=== PATIENT | female | born 1945 | race Caucasian/White ===

== ENCOUNTER → 2016-10-15 | Outpatient (CLI) | payer OTHER ==
[~2016-10-15] MED LIST: CALC500C70 PO; GABA-112 PO; GLC/500 PO; HYDR12.55 PO; HYDR25TA4 PO; LATA0.009 OPB; LISI10TA PO; METO25TA3 PO; METO25TA56 PO; POTASSIUM GLUCONATE PO; POTASSIUM PO; RIVA1TAB4 PO
[2016-10-15 14:30] LABS: ESTIMATED AVERAGE GLUCOSE 128 mg/dl; HA1C FLAG Normal (Normal)
[2016-10-15 14:48] LABS: CALCIUM 9.6 mg/dl (8.5-10.1)
[2016-10-15 14:51] LABS: ALT/SGPT 46 U/L (12-78); BLOOD UREA NITROGEN 17 mg/dl (7-18); BUN/CREATININE RATIO 18.8 (10-20); CARBON DIOXIDE 28 mmol/L (21-32); CHLORIDE 104 mmol/L (98-107); CREATININE 0.89 mg/dl (0.60-1.20); GLUCOSE 116 mg/dl (70-99); POTASSIUM 3.7 mmol/L (3.5-5.1); SODIUM 141 mmol/L (136-145)
[2016-10-15 14:57] LABS: ALB/GLOB RATIO 0.9 (0.9-2); ALKALINE PHOSPHATASE 88 U/L (45-117); AST/SGOT 28 U/L (15-37)
--- NOTE | 2016-10-22 07:49 | CODING QUERY MEDICAL NECESSITY ---
CQSUPPORTING DIAGNOSIS NEEDED A supporting diagnosis is required for the test/procedure performed on this patient in order for us to be reimbursed by the patient's insurance. Please provide a supporting diagnosis for the following test/procedure listed below next to the test name along with your signature. *If there is no additional diagnosis for this patient that would support the following test/procedure please document that below next to the test/procedure. Test(s)/Procedure(s) that require a supporting diagnosis: SATHYA 10/15/16 GLYCATED HEMOGLOBIN TEST Provider Signature: Date: Thank you Clau Conde Health Information Management Once completed, please kindly fax back to [phone] For questions please call [phone]
== END | disposition home or self-care (01) ==
LOC: C.LABBC 09:51
PROVIDERS: ATTEND Internal Medicine
DX: Z68.44 Body mass index [BMI] 60.0-69.9, adult (principal); E11.9 Type 2 diabetes mellitus without complications

== ENCOUNTER → 2016-12-21 | Day surgery (SDC) | payer OTHER ==
[2016-12-15 08:25] VITALS: BMI 51.0
[~2016-12-21] VITALS: Ht 170.2 cm; Wt 147.7 kg
[~2016-12-21] MED LIST changes: -GABA-112 PO; -HYDR12.55 PO; +LIDOCAINE HCL 2% 2 ML VIAL (20MG/ML) ONE; -METO25TA3 PO; -POTASSIUM GLUCONATE PO; +PROPOFOL IV EMULSION 10 MG/ML 20 ML VIAL IV ONE; +SODIUM CHLORIDE 0.9% 500ML 500 ML IV ONE
[2016-12-21 08:24] VITALS: Ht 170.2 cm; Wt 147.7 kg
--- NOTE | 2016-12-21 09:04 | Endo History and Physical ---
History & Physical Date of Service: Dec 21, 2016. Chief Complaint: CHRONIC CONSTIPATION Referring Physician: DR ESTHELA MCDONNELL History of Present Illness screening; constipation Past Medical History Atrial Fibrillation, Diabetes, Glaucoma, Heart Disease, Hypertension Past Surgical History Hx Cardiac Surgery: No Hx Internal Defibrillator: No Hx Pacemaker: No Hx Abdominal Surgery: Yes (VENTRAL HERNIA REPAIR,HYSTERECTOMY) Hx of Implantable Prosthesis: No Hx Post-Op Nausea and Vomiting: Yes Hx Cancer Surgery: No Hx Thoracic Surgery: No Hx Orthopedic: Yes (BILAT TKA, RT KNEE REVISION) Hx Urinary Tract Surgery: No Family History None Social History Smoking Status: Former Smoker Hx Substance Use: No Hx Alcohol Use: No Allergies Coded Allergies: Iodinated Contrast Media (Verified Allergy, Intermediate, RASH ON FOOT, SWELLING, 10/21/10) Sulfa Drugs (Verified Allergy, Unknown, RASH/ITCHING, 12/15/16) Sulfamethoxazole (Verified Allergy, Unknown, RASH/ITCHING, 12/15/16) Current Medications Reported Home Medications Medications Dose Route/Sig Max Daily Dose Days Date Category Os-Martin 500 Plus D (Calcium/Vitamin D) Tab 1 Tab PO QAM 12/15/16 Reported [Potassium] 595 Mg PO QAM 12/15/16 Reported Lopressor (Metoprolol Tartrate) 25 Mg Tab 25 Mg PO QAM 12/15/16 Reported Hctz (Hydrochlorothiazide) 25 Mg Tab 25 Mg PO QAM 12/15/16 Reported Xalatan 0.005% Oph (Latanoprost) Soln 1 Drop OPB HS 12/16/15 Reported Glucophage (Metformin Hcl) 500 Mg Tab 500 Mg PO QPM 12/16/15 Reported Xarelto (Rivaroxaban) 20 Mg Tab 1 Tab PO QAM 12/16/15 Reported Prinivil (Lisinopril) 10 Mg Tab 10 Mg PO QAM 10/13/10 Reported Vital Signs Weight (Kilograms): 147.73 Height (Feet): 5 Height (Inches): 7 Date Time Temp Pulse Resp B/P (MAP) Pulse Ox O2 Delivery O2 Flow Rate FiO2 12/21/16 08:36 36.6 70 18 127/77 (94) 96 Room Air Physical Exam General Appearance: WD/WN, no apparent distress Assessment and Plan Colonoscopy today
--- NOTE | 2016-12-21 09:28 | Discharge Instructions ---
Endoscopy Patient Instructions Date / Procedure(s) Performed Dec 21, 2016. Colonoscopy Allergy Information Coded Allergies: Iodinated Contrast Media (Verified Allergy, Intermediate, RASH ON FOOT, SWELLING, 10/21/10) Sulfa Drugs (Verified Allergy, Unknown, RASH/ITCHING, 12/15/16) Sulfamethoxazole (Verified Allergy, Unknown, RASH/ITCHING, 12/15/16) Discharge Date / Findings Dec 21, 2016. diverticulosis; hemorrhoids Medication Instructions Stopped Medication(s): METFORMIN LAST DOSE 12/19/16 XARELTO LAST DOSE 12/17/16 Restart Stopped Medication(s): OK to resume all medications Provider Instructions Activity Restrictions - No exercising or heavy lifting for 24 hours. - Do not drink alcohol the day of the procedure. - Do not drive a car or operate machinery until the day after the procedure. - Do not make any important decisions or sign important papers in 24 hours after the procedure. Following Day: - Return to full activity which may include returning to work/school. Diet Start your diet with liquids and light foods (jello, soup, juice, toast). Then eat your usual diet if not nauseated. Treatment For Common After Affects For mild abdominal pain, bloating, or excessive gas: - Rest - Eat lightly - Lie on right side Follow-Up Information Follow-up with DR ESTHELA MCDONNELL as scheduled Anesthesia Information What You Should Know You have had a procedure that required some medicine to reduce anxiety and discomfort. This treatment is called moderate sedation. After receiving the treatment, you may be sleepy, but you will be able to breathe on your own. The effects of the treatment may last for several hours. Follow these instructions along with Activity/Diet recommendations noted above: * Do NOT do anything where dizziness or clumsiness would be dangerous. * Rest quietly at home today, then you can be up and about tomorrow. * Have a responsible person stay with you the rest of today. * You may have had an I.V. today. If so, you may take the dressing off later today. Recommendations Call your doctor if: * Trouble breathing * Continuous vomiting for more than 24 hours * Temperature above 101 degrees * Severe abdominal pain or bloating * Pain not relieved by pain medicine ordered * There is increased drainage or redness from any incision * A large amount of rectal bleeding greater than 2-3 tablespoons. (If you had a polyp/s removed or have hemorrhoids, a small amount of blood - from the rectum is to be expected.) * You have any unanswered questions or concerns. IN THE EVENT OF A SERIOUS EMERGENCY, GO TO THE NEAREST EMERGENCY ROOM Your discharge instructions were prepared by provider Audra Mack. Patient Instructions Signature Page Cecilia Salazar Patient (or Guardian) Signature/Date: I have read and understand the instructions given to me by my caregivers. Caregiver/RN/Doctor Signature/Date: The above-named patient and/or guardian has received patient instructions on this date. + Original Patient Signature Page (only) stays with chart. Please make copy for patient.
--- NOTE | 2016-12-21 09:50 | Anesthesiology Progress Note ---
Anesthesia Post Op Note Date & Time Dec 21, 2016 at 09:50 Vital Signs Pain Intensity: 0 Vital Signs Past 12 Hours Date Time Temp Pulse Resp B/P (MAP) Pulse Ox O2 Delivery O2 Flow Rate FiO2 12/21/16 09:41 64 16 101/62 (75) 95 Room Air 12/21/16 09:34 64 16 90/52 (65) 95 Room Air 12/21/16 09:26 63 14 89/51 (64) 99 Room Air 12/21/16 08:36 36.6 70 18 127/77 (94) 96 Room Air Notes Mental Status: alert / awake / arousable, participated in evaluation Pt Amnestic to Procedure: Yes Nausea / Vomiting: adequately controlled Pain: adequately controlled Airway Patency, RR, SpO2: stable & adequate BP & HR: stable & adequate Hydration State: stable & adequate Anesthetic Complications: no major complications apparent
--- NOTE | 2016-12-21 10:52 | GI REPORT ---
Procedure Date: 12/21/2016 8:51 AM Procedure: Colonoscopy Indications: Screening for colorectal malignant neoplasm, Incidental constipation noted Medicines: Propofol per Anesthesia Complications: No immediate complications. Estimated blood loss: None. Estimated Blood Loss: Estimated blood loss: none. Procedure: Pre-Anesthesia Assessment: - Prior to the procedure, a History and Physical was performed, and patient medications, allergies and sensitivities were reviewed. The patient's tolerance of previous anesthesia was reviewed. - The risks and benefits of the procedure and the sedation options and risks were discussed with the patient. All questions were answered and informed consent was obtained. - Patient identification and proposed procedure were verified prior to the procedure by the physician and the nurse. The procedure was verified in the pre-procedure area in the procedure room. - Mental Status Examination: alert and oriented. Airway Examination: normal oropharyngeal airway and neck mobility. Respiratory Examination: clear to auscultation. CV Examination: normal. Abdominal Examination: bowel sounds present, abdomen soft and non-tender, no masses or organomegaly noted. - ASA Grade Assessment: III - A patient with severe systemic disease. After I obtained informed consent, the scope was passed under direct vision. Throughout the procedure, the patient's blood pressure, pulse, and oxygen saturations were monitored continuously. The scope was introduced through the anus and advanced to the cecum, identified by appendiceal orifice and ileocecal valve. The colonoscopy was performed without difficulty. The patient tolerated the procedure well. The quality of the bowel preparation was good. Findings: The perianal and digital rectal examinations were normal. Pertinent negatives include normal sphincter tone and no palpable rectal lesions. Many small-mouthed diverticula were found in the sigmoid colon. Internal hemorrhoids were found during retroflexion. The hemorrhoids were medium-sized and Grade I (internal hemorrhoids that do not prolapse). Impression: - Diverticulosis in the sigmoid colon. - Internal hemorrhoids. - No specimens collected. Recommendation: - Repeat colonoscopy in 10 years for screening purposes. - Return to referring physician as previously scheduled. - Discharge patient to home. Audra Mack D.O. Audra Mack DO 12/21/2016 9:31:19 AM This report has been signed electronically. Note Initiated On: 12/21/2016 8:51 AM I attest to the content of the Intraoperative Record and orders documented therein, exceptions below
[2016-12-21 11:00] VITALS: BP 110/59; PULSE 57; O2SAT 99
== END | disposition home or self-care (01) ==
LOC: C.GI 08:03
PROVIDERS: ATTEND Internal Medicine
DX: Z12.11 Encounter for screening for malignant neoplasm of colon (principal); K59.09 Other constipation; K57.30 Diverticulosis of large intestine without perforation or abscess without bleeding; K64.8 Other hemorrhoids; I48.91 Unspecified atrial fibrillation; E11.9 Type 2 diabetes mellitus without complications; I10 Essential (primary) hypertension; I51.9 Heart disease, unspecified; H40.9 Unspecified glaucoma; Z87.891 Personal history of nicotine dependence; Z79.899 Other long term (current) drug therapy; Z79.84 Long term (current) use of oral hypoglycemic drugs

== ENCOUNTER → 2017-05-14 | Outpatient (CLI) | payer OTHER ==
[~2017-05-14] MED LIST changes: -LIDOCAINE HCL 2% 2 ML VIAL (20MG/ML) ONE; -PROPOFOL IV EMULSION 10 MG/ML 20 ML VIAL IV ONE; -SODIUM CHLORIDE 0.9% 500ML 500 ML IV ONE
[2017-05-14 13:51] LABS: BASO % 0.7 %; BASO ABS # 0.05 K/uL (0-0.2); EOS % 1.6 %; EOS ABS # 0.12 K/uL (0-0.5); HEMOGLOBIN 14.4 g/dL (12.0-16.0); IG# 0.03 K/uL (0.00-0.02); LYMPH % 20.4 %; LYMPH ABS # 1.53 K/uL (1.2-3.4); MEAN CELL VOLUME 86.2 fL (80-100); MEAN CORPUSCULAR HEMOGLOBIN 28.9 pg (25-34); MEAN CORPUSCULAR HGB CONC 33.5 g/dl (32-36); MEAN PLATELET VOLUME 10.8 fL (7.4-10.4); MONO % 8.7 %; MONO ABS # 0.65 K/uL (0.11-0.59); NEUT % 68.2 %; NEUT ABS # 5.11 K/uL (1.4-6.5); PLATELET COUNT 270 K/uL (130-400); RED CELL DISTRIBUTION WIDTH CV 14.8 % (11.5-14.5); RED CELL DISTRIBUTION WIDTH SD 46.8 fL (36.4-46.3); WHITE BLOOD COUNT 7.49 K/uL (4.8-10.8)
[2017-05-14 15:40] LABS: ALBUMIN 3.8 gm/dl (3.4-5.0); ALKALINE PHOSPHATASE 83 U/L (45-117); ALT/SGPT 39 U/L (12-78); BLOOD UREA NITROGEN 20 mg/dl (7-18); CALCIUM 9.8 mg/dl (8.5-10.1); CARBON DIOXIDE 30 mmol/L (21-32); CHOLESTEROL 199 mg/dl (0-200); GLUCOSE 115 mg/dl (70-99); POTASSIUM 3.8 mmol/L (3.5-5.1); SODIUM 137 mmol/L (136-145); TOTAL PROTEIN 7.9 gm/dl (6.4-8.2)
[2017-05-14 15:51] LABS: AST/SGOT 26 U/L (15-37); LDL CHOLESTEROL CALCULATED 114 mg/dl
[2017-05-15 07:51] LABS: HEMOGLOBIN A1C 5.8 % (4.5-5.6)
== END | disposition home or self-care (01) ==
LOC: C.LABBC 10:12
PROVIDERS: ATTEND Internal Medicine
DX: I10 Essential (primary) hypertension (principal); G47.30 Sleep apnea, unspecified; I48.0 Paroxysmal atrial fibrillation; E11.9 Type 2 diabetes mellitus without complications; M54.5 Low back pain; Z79.01 Long term (current) use of anticoagulants; Z51.81 Encounter for therapeutic drug level monitoring; Z11.59 Encounter for screening for other viral diseases

== ENCOUNTER → 2017-07-21 | Outpatient (CLI) | payer OTHER ==
--- NOTE | 2017-07-21 15:37 | MAMMOGRAPHY REPORT ---
BILATERAL DIGITAL SCREENING MAMMOGRAM TOMOSYNTHESIS WITH CAD: 07/21/2017 CLINICAL HISTORY: Routine screening. Patient has no complaints. TECHNIQUE: Breast tomosynthesis in addition to standard 2D mammography was performed. Current study was also evaluated with a Computer Aided Detection (CAD) system. COMPARISON: Comparison is made to exams dated: 09/23/2015 mammogram, 09/19/2014 mammogram, 09/08/2013 ma mmogram, 09/06/2012 mammogram, 08/13/2011 mammogram, and 07/16/2010 mammogram - [facility] er. BREAST COMPOSITION: There are scattered areas of fibroglandular density in both breasts. FINDINGS: No suspicious masses, calcifications, or areas of architectural distortion are noted in ei ther breast. There has been no significant interval change compared to prior exams. Scattered bilater al benign-appearing calcifications are not significantly changed. IMPRESSION: ACR BI-RADS CATEGORY 2: BENIGN There is no mammographic evidence of malignancy. A 1 year screening mammogram is recommended. The pa tient will receive written notification of the results. Approximately 10% of breast cancers are not detected with mammography. A negative mammographic report should not delay biopsy if a clinically suggestive mass is present. Blessing Miles M.D. ah/:07/21/2017 14:53:23 X Ray Control Equipment Repairer: Diamond VILLEGAS)(M), [facility] letter sent: Normal 1/2 BI-RADS Code: ACR BI-RADS Category 2: Benign
== END | disposition home or self-care (01) ==
LOC: C.MAMM 10:36
PROVIDERS: ATTEND Internal Medicine
DX: Z12.31 Encounter for screening mammogram for malignant neoplasm of breast (principal)

== ENCOUNTER 2017-08-23 04:49 | Inpatient (IN) | payer OTHER ==
[2017-08-11 14:16] VITALS: BMI 53.0
--- NOTE | 2017-08-11 15:03 | PAT Medication Instructions ---
Service Date Aug 11, 2017. Current Home Medication List Calcium/Vitamin D (Os-Martin 500 Plus D), 1 TAB PO QAM Hydrochlorothiazide (Hctz), 25 MG PO QAM Latanoprost (Xalatan 0.005% Oph Nathalie), 1 DROPS OPB HS Lisinopril (Prinivil), 10 MG PO QAM Metformin Hcl (Glucophage), 500 MG PO QPM Metoprolol Tartrate (Lopressor) (Lopressor), 25 MG PO QAM Rivaroxaban (Xarelto), 1 TAB PO QAM [Potassium], 99 MG PO QAM Medication Instructions For Your Scheduled Surgery -Contact your commercial leasing agent for instructions for: Rivaroxaban (Xarelto), 1 TAB PO QAM MUST BE HELD FOR 72 HOURS FOR SPINAL ANESTHESIA - Hold the following medications the morning of surgery: Calcium/Vitamin D (Os-Martin 500 Plus D), 1 TAB PO QAM Hydrochlorothiazide (Hctz), 25 MG PO QAM Lisinopril (Prinivil), 10 MG PO QAM [Potassium], 99 MG PO QAM - Take the following medications the morning of surgery with a sip of water: Metoprolol Tartrate (Lopressor) (Lopressor), 25 MG PO QAM - Take the following medications as scheduled the night before surgery: Latanoprost (Xalatan 0.005% Oph Nathalie), 1 DROPS OPB HS Metformin Hcl (Glucophage), 500 MG PO QPM If you have any questions please call us at [phone] or [phone] or [phone]
[2017-08-11 15:57] LABS: BASO % 0.4 %; BASO ABS # 0.04 K/uL (0-0.2); EOS % 0.9 %; EOS ABS # 0.08 K/uL (0-0.5); HEMATOCRIT 43.2 % (37-47); HEMOGLOBIN 14.6 g/dL (12.0-16.0); IG# 0.02 K/uL (0.00-0.02); LYMPH % 17.9 %; LYMPH ABS # 1.59 K/uL (1.2-3.4); MEAN CELL VOLUME 84.7 fL (80-100); MEAN CORPUSCULAR HEMOGLOBIN 28.6 pg (25-34); MEAN CORPUSCULAR HGB CONC 33.8 g/dl (32-36); MONO % 7.5 %; MONO ABS # 0.67 K/uL (0.11-0.59); NEUT % 73.1 %; PLATELET COUNT 261 K/uL (130-400); RED CELL DISTRIBUTION WIDTH CV 14.5 % (11.5-14.5); RED CELL DISTRIBUTION WIDTH SD 45.4 fL (36.4-46.3)
[2017-08-11 16:06] LABS: ALBUMIN 3.7 gm/dl (3.4-5.0); CALCIUM 9.6 mg/dl (8.5-10.1); CREATININE 0.83 mg/dl (0.60-1.20); POTASSIUM 3.7 mmol/L (3.5-5.1)
[2017-08-11 16:08] LABS: PTT PATIENT 31.3 SECONDS (21.0-31.0)
--- NOTE | 2017-08-17 08:35 | History and Physical ---
History & Physical Date Aug 17, 2017. Chief Complaint Patient presents with a new onset of an acute broken post for Encore total knee arthroplasty she had 10 years ago undergone a similar situation with her right knee she presents today with left knee new onset fractured Jennie post for Encore total knee arthroplasty 70-year-old female presents with the pain clinical examination consistent with a acute onset per compose she was symptom- free prior to the event which occurred last week History of Present Illness The patient is a 72 year old female with complaints of pain and instability about her left knee after sustaining a broken post from a Encore PROSTHESIS Past Medical/Surgical History Patient's medical history includes hypertension sleep apnea utilizing home CPAP machine Additional History Hepatic Disease: No Endocrine Disorder: No Kidney Disease: No Hypertension: Yes Heart Disease: No Bleeding Tendencies: No Infectious Diseases: No Allergies Coded Allergies: Iodinated Contrast Media (Verified Allergy, Intermediate, RASH ON FOOT, SWELLING, 08/11/17) Sulfa Drugs (Verified Allergy, Unknown, RASH/ITCHING, 08/11/17) Sulfamethoxazole (Verified Allergy, Unknown, RASH/ITCHING, 08/11/17) Home Medications Scheduled Calcium/Vitamin D (Os-Martin 500 Plus D), 1 TAB PO QAM Hydrochlorothiazide (Hctz), 25 MG PO QAM Latanoprost (Xalatan 0.005% Oph Nathalie), 1 DROPS OPB HS Lisinopril (Prinivil), 10 MG PO QAM Metformin Hcl (Glucophage), 500 MG PO QPM Metoprolol Tartrate (Lopressor) (Lopressor), 25 MG PO QAM Rivaroxaban (Xarelto), 1 TAB PO QAM [Potassium], 99 MG PO QAM Physical Examination Skin: warm/dry, no rash Eyes: normal inspection, EOMI, sclerae normal ENT: normal ENT inspection, pharynx normal Head: normocephalic, atraumatic Neck: supple, no adenopathy, trachea midline Respiratory/Chest: lungs clear, normal breath sounds, no respiratory distress Cardiovascular: regular rate, rhythm, no edema, no murmur Abdomen / GI: normal bowel sounds, non tender Back: normal inspection Extremities: normal inspection, normal range of motion, + pertinent finding ( Instability of left total knee arthroplasty resulting from a broken post) Neurologic/Psych: no motor/sensory deficits, alert, normal reflexes, oriented x 3 Addiitonal Comments: Patient has been completely asymptomatic symptom-free no fever chills rash no signs of anything infectious until the acute fracture of the Jennie patient did not have any aspirated due to the clinical exam being completely benign with no indication or evidence of any type of infectious etiology x-rays revealed to be possible lucency under the tibial component that would be consistent with just aseptic loosening over the years but she has been symptom-free until the most recent fracture of the tibial poly-plan will be for poly-change possible revision pending evaluation of tibia at the time of surgery Diagnosis Status post left total knee arthroplasty from 2001 with broken post for Encore prosthesis plans for possible Valerie change possible revision to a Legion total knee arthroplasty pending findings at time of surgery Plan of Treatment Plans for poly-changes left total knee arthroplasty Encore prosthesis possible revision to a lesion total knee arthroplasty pending findings at time of surgery
[~2017-08-23] VITALS: Ht 165.1 cm; Wt 142.5 kg
[2017-08-23] VITALS (8 sets, daily range): BP systolic 103–136; BP diastolic 65–81; PULSE 66–92; TEMP 36.6–36.9; O2SAT 94–98; Ht 165.1 cm; Wt 142.5 kg
[~2017-08-23 04:49] MED LIST changes: +ACETAMINOPHEN 500 MG TAB PO SCH; +CEFAZOLIN 3000MG IV PUSH 22.5 ML IV SCH; +CeleBREX 200 MG CAP PO SCH; +DEXAMETHASONE 4 MG TAB PO SCH; +FAMOTIDINE 20 MG TAB PO SCH; +GABAPENTIN 300 MG CAP PO SCH; +LACTATED RINGER'S 1000ML 1,000 ML IV SCH; +LACTATED RINGER'S 1000ML 500 ML IV SCH; -LATA0.009 OPB; +LATA0.5S OPB; +METOCLOPRAMIDE HCL 10 MG TAB PO SCH; +ROPIVACAINE 5MG/ML 30 ML 150 MG, BUPIVACAINE 0.5% MPF INJ 30 ML, EpINEphrine HCL INJ 0.... INFIL SCH
[2017-08-23] MEDS ORDERED: LACTATED RINGER'S 1000ML 1,000 ML IV SCH (06:00)
[2017-08-23] MEDS ORDERED: DEXAMETHASONE 4 MG TAB PO SCH (06:00)
[2017-08-23] MEDS ORDERED: LACTATED RINGER'S 1000ML 500 ML IV SCH (06:00)
[2017-08-23] MEDS ORDERED: FAMOTIDINE 20 MG TAB PO SCH (06:00)
[2017-08-23] MEDS ORDERED: ACETAMINOPHEN 500 MG TAB PO SCH (06:00)
[2017-08-23] MEDS ORDERED: CeleBREX 200 MG CAP PO SCH (06:00)
[2017-08-23] MEDS ORDERED: GABAPENTIN 300 MG CAP PO SCH (06:00)
[2017-08-23] MEDS ORDERED: CEFAZOLIN 3000MG IV PUSH 22.5 ML IV SCH (06:00)
[2017-08-23] MEDS ORDERED: METOCLOPRAMIDE HCL 10 MG TAB PO SCH (06:00)
[2017-08-23] MEDS ORDERED: ROPIVACAINE 5MG/ML 30 ML 150 MG, BUPIVACAINE 0.5% MPF INJ 30 ML, EpINEphrine HCL INJ 0.... INFIL SCH ×8 (06:00)
[2017-08-23] MEDS ORDERED: BUPIVACAINE 0.5 % 5 MG/1 ML PF 10ML VIAL ONE (06:33)
[2017-08-23] MEDS ORDERED: ROPIVACAINE 0.5% 5 MG/ML 30 ML VIAL ONE (06:33)
[2017-08-23] MEDS ORDERED: PROPOFOL IV EMULSION 10 MG/ML 20 ML VIAL IV ONE ×2 (07:03→08:05)
[2017-08-23] MEDS ORDERED: LIDOCAINE HCL 2% 2 ML VIAL (20MG/ML) ONE (07:03)
[2017-08-23] MEDS ORDERED: MIDAZOLAM HCL 1 MG/ML 2ML VIAL ONE (07:03)
[2017-08-23] MEDS ORDERED: FENTANYL CITRATE INJ 50 MCG/1 ML 2 ML VIAL ONE (07:03)
[2017-08-23] MEDS ORDERED: EpHEDrine SULFATE 50MG/5ML SYR ONE (07:03)
[2017-08-23] MEDS ORDERED: POVIDONE-IODINE OP SOLN 30 ML BTL ONE (07:05)
[2017-08-23] MEDS ORDERED: ORTHO JOINT ANESTHETIC ONE (07:05)
[2017-08-23] MEDS ORDERED: BACITRACIN 50000 UNIT VIAL ONE (07:05)
--- NOTE | 2017-08-23 07:12 | History & Physical Bridge Note ---
H&P Re-Evaluation Bridge Note: I have examined the patient, reviewed the History & Physical and in the interval since the performance of the History & Physical I have noted the following changes of clinical significance: No changes noted
[2017-08-23] MEDS ORDERED: EpHEDrine SULFATE INJ 50 MG/ML AMP IV PRN (08:00)
[2017-08-23] MEDS ORDERED: ONDANSETRON INJ 2 MG/ML 2 ML VIAL IV PRN ×2 (08:00→09:15)
[2017-08-23] MEDS ORDERED: HYDROmorphone INJ 2 MG/ML SYR/VIAL IV PRN (08:00)
[2017-08-23] MEDS ORDERED: ATROPINE SULFATE 0.1 MG/ML 5ML SYR IV PRN (08:00)
[2017-08-23] MEDS ORDERED: PHENYLEPHRINE 100MCG/ML 5ML SYR IV PRN (08:00)
--- NOTE | 2017-08-23 08:25 | [facility] Post Operative Brief Note ---
Immediate Operative Summary Operative Date Aug 23, 2017. Pre-Operative Diagnosis Broken poly post left tka Post-Operative Diagnosis Broken Valerie post left total knee arthroplasty Encore system with warn patellar component Procedure(s) Performed Valerie change to a size 6 x 19 Poly revision patellar component size 9 x 35 Encore implant Surgeon Vinod Chalker Soles Surgeon(s) Roxanna Estimated Blood Loss 5 cc Findings Consistent with Post-Op Diagnosis Specimens broken poly Anesthesia Type MAC Spinal Regional Complication(s) none Disposition Disposition: Recovery Room / PACU
[2017-08-23] MEDS ORDERED: PHENYLEPHRINE HCL INJ 10 MG/ML VIAL ONE (08:29)
--- NOTE | 2017-08-23 08:29 | [facility] Operative Report ---
Operative Report Operative Date Aug 23, 2017. Pre-Operative Diagnosis Broken poly post left tka Post-Operative Diagnosis Broken Poly post left total knee arthroplasty Encore system with warn patellar component Procedure(s) Performed Valerie change to a size 6 x 19 Poly revision patellar component size 9 x 35 Encore implant Surgeon Vinod Cook [employer] Surgeon(s) Roxanna Estimated Blood Loss 5 cc Findings Patient presents with a total knee arthroplasty ENcore was placed in 2001 after having a sudden onset failure of the post approximately 1 week prior patient presents for poly-change as well as a patellar revision no loosening of components components was noted on preoperative bone scan or intraoperatively at the time of surgery for this reason the Poly was revised as well as the patellar component Specimens broken poly Anesthesia Type MAC Spinal Regional Complication(s) none Disposition Recovery Room / PACU Indications Patient presents after failure of Poly bearing on an Encore total knee arthroplasty was placed in 2001 as well as polyethylene wear of the patellar component no evidence of infection was noted patient is completely asymptomatic until the Jennie failure time surgery no evidence of infection no evidence of loosening is noted preoperative bone scan revealed no evidence of loosening of either patellar or femoral or tibial components Description of Procedure After proper prepping and draping of the left lower extremity incision made in the region of the previous anterior extensor mechanism incision a medial parapatellar incision was made dissection carried down through subcutaneous tissues to the region of the extensor mechanism and the components there is obvious failure of the polyethylene with a broken post the polyethylene was removed as well as the broken post the patellar component was noted evidence of marketed where and fissuring with a central crack subsequently after removal of the Valerie synovectomy was performed operative matter debris was removed the patellar component was removed with an oscillating saw was sized to #35 x 9 mm gave excellent patellar tracking a trial of a 19 mm thickness polyethylene bearing was placed subsequently at the range of motion noted be excellent stability medial lateral was noted to be excellent subsequently the final components were brought into the field the polyethylene was placed after thorough irrigation of the knee joint patellar component was cemented into position the wound was irrigated with copious amounts of sterile saline solution and medial parapatellar incision closed with #1 Vicryl subcu was closed with 2-0 Vicryl skin was closed with skin clips a sterile compressive dressing was placed patient taken to recovery in stable condition operative report dictated by Vinod please note Dontrell GAY was necessary for prepping draping retraction closure of deep fascia subcutaneous skin was necessary for the case I attest to the content of the Intraoperative Record and any orders documented therein. Any exceptions are noted below.
[2017-08-23] MEDS ORDERED: BISACODYL 10 MG SUPP PR PRN (09:15)
[2017-08-23] MEDS ORDERED: MoRPHine SULFATE 4 MG/ML 1 ML CARP\\VIAL IV PRN (09:15)
[2017-08-23] MEDS ORDERED: OXYCODONE HCL IR 5 MG TAB (IMMEDIATE RELEASE) PO PRN (09:15)
[2017-08-23] MEDS ORDERED: ALUMINUM/MAGNESIUM/SIMETH (MAALOX MAX) 30 ML UDC PO PRN (09:15)
[2017-08-23] MEDS ORDERED: CEFAZOLIN IV 2,000 MG in DEXTROSE 5% 50ML 50 ML IV SCH (09:15)
[2017-08-23] MEDS ORDERED: MAGNESIUM HYDROXIDE SUSP 30 ML UDC PO PRN (09:15)
[2017-08-23] MEDS ORDERED: PHARMACY GLYCEMIC MGMT CONSULT PRN (09:16)
[2017-08-23] MEDS ORDERED: GLUCOSE 40% GEL 15 GM TUBE PO PRN (09:30)
[2017-08-23] MEDS ORDERED: GLUCAGON FOR INJ 1 MG VIAL SQ PRN (09:30)
[2017-08-23] MEDS ORDERED: GLUCOSE 10 TABS/TUBE PO PRN (09:30)
[2017-08-23] MEDS ORDERED: DEXTROSE 50% 50 ML SYR IV PRN (09:30)
--- NOTE | 2017-08-23 09:39 | DIAGNOSTIC IMAGING REPORT ---
L KNEE 2 VIEWS ROUTINE CLINICAL HISTORY: Postop knee arthroplasty COMPARISON: None. DISCUSSION: There are postsurgical changes of a total left knee arthroplasty, and patellar resurfacing. The femoral and tibial components appear well seated. There are overlying skin jaskaran and surgical drains. There is air in the soft tissues consistent with history of recent surgery. IMPRESSION: Postsurgical changes of a total left knee arthroplasty. Electronically signed by: Jhony Nugent M.D. 08/23/2017 9:37 AM Dictated Date/Time: 08/23/2017 9:37 AM
--- NOTE | 2017-08-23 10:52 | Anesthesiology Progress Note ---
Anesthesia Post Op Note Date & Time Aug 23, 2017 at 10:52 Vital Signs Pain Intensity: 0 Vital Signs Past 12 Hours Date Time Temp Pulse Resp B/P (MAP) Pulse Ox O2 Delivery O2 Flow Rate FiO2 08/23/17 10:45 59 11 96/58 95 Nasal Cannula 2 08/23/17 10:35 58 18 95/57 95 Nasal Cannula 2 08/23/17 10:25 60 17 98/61 94 Nasal Cannula 2 08/23/17 10:15 66 17 104/57 96 Nasal Cannula 2 08/23/17 10:05 57 18 90/54 (65) 96 Nasal Cannula 2 08/23/17 09:55 62 14 97/58 (69) 96 Nasal Cannula 2 08/23/17 09:45 59 16 95/52 (63) 96 Nasal Cannula 2 08/23/17 09:35 60 18 100/58 95 Nasal Cannula 2 08/23/17 09:25 64 17 91/59 (70) 95 Oxymask 6 08/23/17 09:15 87 22 98/62 (70) 95 Oxymask 10 08/23/17 09:05 36.9 81 25 79/51 (60) 94 Oxymask 10 08/23/17 05:38 36.6 92 20 118/73 Notes Mental Status: alert / awake / arousable, participated in evaluation Pt Amnestic to Procedure: Yes Nausea / Vomiting: adequately controlled Pain: adequately controlled Airway Patency, RR, SpO2: stable & adequate BP & HR: stable & adequate Hydration State: stable & adequate Anesthetic Complications: no major complications apparent
[2017-08-23] MEDS: ACETAMINOPHEN 500 MG TAB PO SCH ×2 (13:58→20:47)
[2017-08-23] MEDS: INSULIN ASPART 100 UNITS/ML 3 ML PEN SC SCH ×4 (14:03→23:50)
--- NOTE | 2017-08-23 14:04 | Pharmacy Progress Note ---
Glycemic Control Intl Consult Date of Service Aug 23, 2017. Scope Glycemic Pharmacist consulted by LUCRETIA Patton on 08/23/17 for glycemic control and to write orders per [facility] inpatient glycemic control protocol. Objective Weight (Kilograms): 142.500 Accuchecks BSG (last 24hrs): Test 08/23/17 05:23 08/23/17 09:08 08/23/17 12:33 Bedside Glucose 131 mg/dl (70-90) 120 mg/dl (70-90) 146 mg/dl (70-90) HbA1c Test 08/11/17 15:40 Hemoglobin A1c 6.0 % (4.5-5.6) H Recent Pertinent Medications Outpatient Anti-diabetic Regimen: * Metformin 500mg PO qAM * A1c = 6.0% 08/11/17 Risk Factors for Insulin Resistance: * Steroids: DXM 8mg PO x1 dose pre-op this morning, plus ortho injection * IVF: NSS @ 100mL/hr * Recent Surgery: OR today for L TKA revision * Diet: Type 2 diabetic diet Assessment & Plan ASSESSMENT: * Ms Salazar is a 72yo diabetic female, admitted for L TKA revision (OR this morning). * Based on recent A1c, BSGs are well-controlled on Metformin as an outpatient. * In an effort to minimize steroid-induced hyperglycemia post-op, will provide patient with basal/bolus insulin regimen. Will adjust as needed until good glycemic control is achieved. PLAN FOR INPATIENT GLYCEMIC CONTROL: * Holding outpatient oral diabetes medications * Consider resuming once diet is resumed and tolerated * Basal insulin with LANTUS 15 units SQ x1 dose this afternoon * Correctional Insulin with NOVOLOG per scale ACHS or Q6hrs while NPO * Goal Range: Low 110 mg/dL - High 150 mg/dL * Correction Factor: 15 mg/dL/unit * Nutritional / Prandial insulin per carb ratio of 1 unit per 7 grams CHO consumed DISCHARGE PLANNING: * Patient's recent A1c (6.0%) indicates adequate glycemic control as an outpatient. * It is most likely reasonable to continue patient's outpt regimen on discharge , as long as patient isn't experiencing hypoglycemic episodes at home. * Please note that the plan above was derived based on current level of insulin resistance and hospital stress. These recommendations are appropriate for inpatient admission only. Plan of care upon discharge will need to be reassessed to avoid potential outpatient hypo/hyperglycemia. Thank you.
[2017-08-23] MEDS ORDERED: LANTUS PER UNIT CHARGE SQ ONE (14:15)
[2017-08-23] MEDS: SODIUM CHLORIDE 0.9% 1000ML 1,000 ML IV SCH ×2 (15:11→23:50)
[2017-08-23] MEDS: CEFAZOLIN IV 2,000 MG in SYRINGE 0 ML IV SCH ×2 (15:23→23:50)
[2017-08-23] MEDS: FERROUS GLUCONATE 324 MG TAB PO SCH (18:10)
[2017-08-23] MEDS: DOCUSATE SODIUM 100 MG CAP PO SCH (20:46)
[2017-08-23] MEDS: LATANOPROST 0.005% OP SOLN 2.5 ML BTL OPB SCH (20:46)
[2017-08-23] MEDS: SENNA 8.6 MG TAB PO SCH (20:46)
[2017-08-24] MEDS: INSULIN ASPART 100 UNITS/ML 3 ML PEN SC SCH ×5 (03:56→21:00)
[2017-08-24 04:00] VITALS: BP 120/80; PULSE 62; TEMP 36.6; O2SAT 97
[2017-08-24 05:55] LABS: HEMATOCRIT 36.2 % (37-47); HEMOGLOBIN 11.9 g/dL (12.0-16.0); MEAN CELL VOLUME 84.2 fL (80-100); MEAN CORPUSCULAR HEMOGLOBIN 27.7 pg (25-34); MEAN CORPUSCULAR HGB CONC 32.9 g/dl (32-36); MEAN PLATELET VOLUME 10.2 fL (7.4-10.4); PLATELET COUNT 240 K/uL (130-400); RED CELL DISTRIBUTION WIDTH CV 14.8 % (11.5-14.5); RED CELL DISTRIBUTION WIDTH SD 45.7 fL (36.4-46.3); WHITE BLOOD COUNT 16.48 K/uL (4.8-10.8)
[2017-08-24] MEDS: ACETAMINOPHEN 500 MG TAB PO SCH ×3 (06:13→21:06)
[2017-08-24 06:24] LABS: CALCIUM 8.7 mg/dl (8.5-10.1); CREATININE 1.09 mg/dl (0.60-1.20); POTASSIUM 3.4 mmol/L (3.5-5.1)
[2017-08-24 06:53] VITALS: BP 142/75; PULSE 60; TEMP 36.5; O2SAT 97
--- NOTE | 2017-08-24 07:37 | Anesthesiology Progress Note ---
Anesthesia Post Op Note Date & Time Aug 24, 2017 at 07:37 Vital Signs Pain Intensity: 0.0 Vital Signs Past 12 Hours Date Time Temp Pulse Resp B/P (MAP) Pulse Ox O2 Delivery O2 Flow Rate FiO2 08/24/17 06:53 36.5 60 18 142/75 (97) 97 Room Air 08/24/17 04:00 36.6 62 16 120/80 (93) 97 Room Air 08/24/17 00:02 Room Air 08/23/17 22:50 36.8 66 18 122/76 (91) 96 Room Air Notes Mental Status: alert / awake / arousable, participated in evaluation Pt Amnestic to Procedure: Yes Nausea / Vomiting: adequately controlled Pain: adequately controlled Airway Patency, RR, SpO2: stable & adequate BP & HR: stable & adequate Hydration State: stable & adequate Neuraxial Anesthesia: sensory block resolved Anesthetic Complications: no major complications apparent
--- NOTE | 2017-08-24 07:48 | Orthopedic Progress Note ---
Orthopedic Progress Note Date of Service Aug 24, 2017. Subjective Post OP Day: 1 Reports: feeling well, Denies: chest pain, SOB, nausea / vomiting, light headedness, calf pain Additional Notes: Pt states that the Prevena dressing began alarming early this AM but nursing staff was able to fix the problem. Pain controlled fairly well at this time. Objective calves soft nontender, N/V intact, dressing C/D/I (Prevena intact), A&O x3, toes mobile Date Time Temp Pulse Resp B/P (MAP) Pulse Ox O2 Delivery O2 Flow Rate FiO2 08/24/17 06:53 36.5 60 18 142/75 (97) 97 Room Air 08/24/17 04:00 36.6 62 16 120/80 (93) 97 Room Air 08/24/17 00:02 Room Air 08/23/17 22:50 36.8 66 18 122/76 (91) 96 Room Air 08/23/17 18:55 36.9 71 18 112/72 (85) 96 Room Air 08/23/17 15:15 36.7 72 18 119/75 (90) 98 Nasal Cannula 1.0 08/23/17 15:10 Nasal Cannula 1.0 08/23/17 14:22 36.6 74 16 115/75 (88) 97 2.0 08/23/17 13:17 75 16 136/81 (99) 94 2.0 08/23/17 12:52 68 16 115/70 (85) 97 2.0 08/23/17 12:10 Nasal Cannula 2.0 08/23/17 12:10 97 Nasal Cannula 2.0 08/23/17 12:10 36.6 68 15 103/65 (78) 97 Nasal Cannula 2.0 08/23/17 11:45 63 20 101/59 95 Nasal Cannula 2 08/23/17 11:35 36.1 64 19 106/60 94 Nasal Cannula 2 08/23/17 11:25 67 22 96/58 (70) 96 Nasal Cannula 2 08/23/17 11:15 59 16 94/57 (66) 94 Nasal Cannula 2 08/23/17 11:05 59 16 95/59 (68) 94 Nasal Cannula 2 08/23/17 10:55 36.0 60 13 90/57 (68) 96 Nasal Cannula 2 08/23/17 10:45 59 11 96/58 95 Nasal Cannula 2 08/23/17 10:35 58 18 95/57 95 Nasal Cannula 2 08/23/17 10:25 60 17 98/61 94 Nasal Cannula 2 08/23/17 10:15 66 17 104/57 96 Nasal Cannula 2 08/23/17 10:05 57 18 90/54 (65) 96 Nasal Cannula 2 08/23/17 09:55 62 14 97/58 (69) 96 Nasal Cannula 2 08/23/17 09:45 59 16 95/52 (63) 96 Nasal Cannula 2 08/23/17 09:35 60 18 100/58 95 Nasal Cannula 2 08/23/17 09:25 64 17 91/59 (70) 95 Oxymask 6 08/23/17 09:15 87 22 98/62 (70) 95 Oxymask 10 08/23/17 09:05 36.9 81 25 79/51 (60) 94 Oxymask 10 Laboratory Results 24 Hours: Test 08/24/17 05:09 Hematocrit 36.2 % Hemoglobin 11.9 g/dL Assessment & Plan Assessment: POD 1 s/p Left TKA Poly change and revision of patella. Plan: PT/OT Unsure if she wants HH services vs OPPT. Will discuss with CM and decide after PT today. Inhouse Planning Pain Management: Ultram, Morphine, PO Tylenol, Oxy IR DVT Prophylaxis: TEDs, SCDs, Xarelto Discharge Planning Discharge Planning: uncertain
[2017-08-24] MEDS: FERROUS GLUCONATE 324 MG TAB PO SCH ×3 (08:37→18:46)
[2017-08-24] MEDS: DOCUSATE SODIUM 100 MG CAP PO SCH ×2 (08:38→21:03)
[2017-08-24] MEDS: MULTIVITAMIN TAB PO SCH (08:38)
[2017-08-24] MEDS: METOPROLOL TARTRATE 25 MG TAB PO SCH (08:38)
[2017-08-24] MEDS: RIVAROXABAN 10 MG TAB PO SCH (08:39)
[2017-08-24] MEDS: LISINOPRIL 10 MG TAB PO SCH (08:39)
--- NOTE | 2017-08-24 08:51 | Discharge Instructions ---
Discharge Instructions Date of Service Aug 24, 2017. Admission Reason for Admission: Left Knee Osteoarthritis Discharge Discharge Diagnosis / Problem: Left TKA Poly change and revision of patella. Discharge Goals Goal(s): Decrease discomfort Activity Recommendations Activity Limitations: as noted below Weightbearing Status: Left weightbearing (as tolerated) . Instructions / Follow-Up Instructions / Follow-Up ACTIVITY RECOMMENDATIONS: SELF CARE INSTRUCTIONS AFTER TOTAL KNEE REPLACEMENT A. You may need to continue a physical therapy program after discharge from the hospital. There are several options available to you. Your doctor will assist you in selecting the best one for you. 1. An out-patient facility 2 to 3 times a week for therapy or home therapy. 2. Continue working on all exercises taught to you in the hospital. Your goals should be to increase bending of your knee to 90 degrees and beyond and to fully straighten your knee. B. You may progress at your own pace from walking with a walker or crutches to a cane; then to no assistive devices. C. Make walking a part of your daily routine. Be up as much as comfortable with rest periods throughout the day. Rest with leg elevation is very important. Use the ice wrap frequently for the first 3-4 weeks. D. There are no restrictions on activities. You may ride in a car, shop, participate in patrol community service officer and all social activities. E. Wear the long elastic stockings (GUANACO hose) 20 hours a day for 2 weeks after surgery. They can be removed several times a day for laundering and for a bath. F. You may shower, no tub baths until cleared by your doctor. SPECIAL CARE INSTRUCTIONS: VERY IMPORTANT TO READ AND REVIEW A. There are a few signs you need to watch for after you are home. Call [facility] [place] if you notice any of the followin. Increased severe knee pain. Some pain is expected especially when you exercise. 2. Increased swelling in your leg or knee; pain or swelling of the calf muscle in either lower leg. 3. Any fluid drainage from the incision. 4. Shortness of breath or chest pain. B. Please call [facility] at if you have any concerns or questions about your operation or recovery. The doctor or his nurse will return your call promptly. C. You must take antibiotics before dental work, bladder, bowel or other surgery. Your doctor will provide you with a permanent care to carry describing this precaution. IMPORTANT: * REMEMBER TO TAKE ASPIRIN, 81 MG, TWICE DAILY FOR 4 WEEKS UNLESS OTHERWISE DIRECTED. THIS IS YOUR BLOOD THINNER. * HIGH RISK PATIENTS MAY BE PRESCRIBED A STRONGER BLOOD THINNER. THIS WILL BE PROVIDED AT DISCHARGE. * CALL IF INCREASED PAIN, REDNESS, DRAINAGE OR FEVER GREATER THAT 101. * WEAR GUANACO HOSE 20 HOURS PER DAY FOR 2 WEEKS. * YOU MAY HAVE A LARGE BAND-AID LIKE DRESSING (SILVERON). THIS WILL REMAIN ON YOUR INCISION FOR 7 DAYS, THEN CAN BE REMOVED. IF INCISION IS LEAKING THROUGH DRESSING, CALL THE OFFICE . * YOU MAY HAVE A Prevena wound vac- This is a large suction dressing covering your incision. This will help pull any excess drainage from the wound and allow your incision to heal properly. You may shower with this if you can keep the unit outside of the shower. If any bleeding or leakage is noted please call your doctor's office. This will remain on your incision for 7 days and then should be removed. This can be done yourself or by the home nursing staff if applicable. The entire unit is disposable once removed. Once removed, keep incision clean and dry. If redness or drainage is noted, please call your surgeon. FOLLOW UP VISIT: If appointment is not already scheduled: Please call [facility] [place] to make a follow-up appointment for 2 weeks after your surgery at . Current Hospital Diet Patient's current hospital diet: Diabetes Type 2 Diet Discharge Diet Recommended Diet: Diabetes Type 2 Diet Procedures Procedures Performed: Valerie change to a size 6 x 19 Poly revision patellar component size 9 x 35 Encore implant Pending Studies Studies pending at discharge: no Laboratory Results Hemoglobin A1c Test 08/11/17 15:40 Range/Units Estimated Average Glucose 126 mg/dl Hemoglobin A1c 6.0 H 4.5-5.6 % Medical Emergencies . Who to Call and When: Medical Emergencies: If at any time you feel your situation is an emergency, please call 911 immediately. . Non-Emergent Contact Non-Emergency issues call your: Primary Care Provider, Surgeon . "Provider Documentation" section prepared by Kalyan Figueroa. . [place] Drug Monitoring Program Search Results: patient reviewed within database, no issues identified
[2017-08-24] MEDS: SODIUM CHLORIDE 0.9% 1000ML 1,000 ML IV SCH (09:59)
[2017-08-24 10:12] VITALS: PULSE 83; O2SAT 97
[2017-08-24] MEDS ORDERED: NURSING VERBAL MED ORDER ONE (11:15)
[2017-08-24] MEDS ORDERED: RXC5 PO (11:22)
[2017-08-24] MEDS ORDERED: ONDA-170 PO (11:22)
[2017-08-24] MEDS ORDERED: CLC100 PO (11:22)
[2017-08-24] MEDS ORDERED: ACET-24 PO (11:22)
[2017-08-24] MEDS: TRAMADOL HCL 50 MG TAB PO PRN ×3 (11:52→21:18)
--- NOTE | 2017-08-24 11:52 | Clinical Documentation Query ---
RERE Bennett : CLINICAL DOCUMENTATION QUERY Patient is a 72 year old female admitted for revision of left TKA. BMI noted to be 52.3 kg/m*m. In order to capture this clinically relevant information, an associated medical diagnosis must be documented in the record. As appropriate, consider documentation of an associated diagnosis and/or the BMI. Thank you. In your clinical opinion is this patient: ( x ) Morbidly obese, BMI 52.3 kg/m*m ( ) Not Agree ( ) Other explanation of clinical findings (Please Explain) ( ) Unable to determine (Please Define) ( ) Need to Discuss The medical record reflects the following clinical findings, treatment, and risk factors. Please clarify and document your clinical opinion in the progress notes and discharge summary. Terms such as "probable", "suspected", "likely", "questionable", "possible", or "still to be ruled out" are acceptable. IF IN AGREEMENT, YOU MUST DOCUMENT ABOVE DIAGNOSTIC STATEMENT IN DAILY PROGRESS NOTES AND DISCHARGE SUMMARY. This document is not part of the patient's record. Thank You, Jean Linn, RN [phone]
[2017-08-24 12:11] VITALS: BP 111/73; PULSE 60; TEMP 36.5; O2SAT 98
--- NOTE | 2017-08-24 13:40 | Pharmacy Progress Note ---
Pharmacy Glycemic Short Note 2 Date of Service Aug 24, 2017. Outpatient Anti-diabetic Regimen: * Metformin 500mg PO qAM * A1c = 6.0% 08/11/17 ASSESSMENT: 08/24/17 * BSGs have been well-controlled post-op. * Metformin resumed for this evening's dose, as patient appears to be tolerating diet. * Will remove carb coverage from Novolog parameters, as patient is not likely to require additional prandial coverage this far out from pre-op steroid dose. 08/23/17 * Ms Salazar is a 72yo diabetic female, admitted for L TKA revision (OR this morning). * Based on recent A1c, BSGs are well-controlled on Metformin as an outpatient. * In an effort to minimize steroid-induced hyperglycemia post-op, will provide patient with basal/bolus insulin regimen. Will adjust as needed until good glycemic control is achieved. PLAN FOR INPATIENT GLYCEMIC CONTROL: * Holding outpatient oral diabetes medications * Resume Metformin 500mg PO qPM * Basal insulin: no further Lantus at this time * Correctional Insulin with NOVOLOG per scale ACHS or Q6hrs while NPO * Goal Range: Low 110 mg/dL - High 150 mg/dL * Correction Factor: 15 mg/dL/unit * Nutritional / Prandial insulin: no further coverage at this time DISCHARGE PLANNING: * Patient's recent A1c (6.0%) indicates adequate glycemic control as an outpatient. * It is most likely reasonable to continue patient's outpt regimen on discharge , as long as patient isn't experiencing hypoglycemic episodes at home. * Please note that the plan above was derived based on current level of insulin resistance and hospital stress. These recommendations are appropriate for inpatient admission only. Plan of care upon discharge will need to be reassessed to avoid potential outpatient hypo/hyperglycemia. Thank you.
[2017-08-24 15:58] VITALS: BP 124/66; PULSE 65; TEMP 36.8; O2SAT 98
[2017-08-24] MEDS: METFORMIN HCL 500 MG TAB PO SCH (18:47)
[2017-08-24] MEDS: LATANOPROST 0.005% OP SOLN 2.5 ML BTL OPB SCH (21:02)
[2017-08-24] MEDS: SENNA 8.6 MG TAB PO SCH (21:03)
[2017-08-24] MEDS: MICONAZOLE NITRATE POWDER 43 GM EXT PRN (21:10)
[2017-08-24 23:20] VITALS: BP 105/61; PULSE 65; TEMP 36.6; O2SAT 97
[2017-08-25] MEDS: ACETAMINOPHEN 500 MG TAB PO SCH ×3 (05:21→20:57)
--- NOTE | 2017-08-25 06:43 | Orthopedic Progress Note ---
Orthopedic Progress Note Date of Service Aug 25, 2017. Subjective Post OP Day: 2 Reports: feeling well, nausea / vomiting (episode of nausea last evening but improved this am), pain controlled w PO medications, Denies: complaints, chest pain, SOB, light headedness, calf pain Objective calves soft nontender, N/V intact, capillary refill less than 2 sec., dressing C /D/I, A&O x3, toes mobile Date Time Temp Pulse Resp B/P (MAP) Pulse Ox O2 Delivery O2 Flow Rate FiO2 08/24/17 23:21 Room Air 08/24/17 23:20 36.6 65 18 105/61 (76) 97 Room Air 08/24/17 15:58 36.8 65 18 124/66 (85) 98 Room Air 08/24/17 15:50 Nasal Cannula 08/24/17 12:11 36.5 60 20 111/73 (86) 98 Room Air 08/24/17 10:12 83 97 08/24/17 07:56 Room Air 08/24/17 06:53 36.5 60 18 142/75 (97) 97 Room Air Assessment & Plan Assessment: POD 2 s/p Left TKA Poly change and revision of patella. Plan: PT/OT will plan on d/c home with HHPT with advantage DVT proph with GUANACO/SCD/Xarelto Discharge Planning Discharge Planning: home with home health DVT Prophylaxis: TEDs, SCDs, ASA Therapy: Physical Therapy
[2017-08-25 07:12] VITALS: BP 122/79; PULSE 70; TEMP 36.5; O2SAT 96
[2017-08-25] MEDS: DOCUSATE SODIUM 100 MG CAP PO SCH ×2 (08:37→20:56)
[2017-08-25] MEDS: RIVAROXABAN 10 MG TAB PO SCH (08:38)
[2017-08-25] MEDS: FERROUS GLUCONATE 324 MG TAB PO SCH ×3 (08:38→17:45)
[2017-08-25] MEDS: MULTIVITAMIN TAB PO SCH (08:38)
[2017-08-25] MEDS: LISINOPRIL 10 MG TAB PO SCH (08:38)
[2017-08-25] MEDS: METOPROLOL TARTRATE 25 MG TAB PO SCH (08:38)
[2017-08-25] MEDS: INSULIN ASPART 100 UNITS/ML 3 ML PEN SC SCH ×4 (08:39→20:53)
[2017-08-25] MEDS: TRAMADOL HCL 50 MG TAB PO PRN ×2 (10:39→19:32)
[2017-08-25] MEDS ORDERED: KETOROLAC TROMETHAMINE 15 MG/ML VIAL IV PRN (10:45)
[2017-08-25] MEDS ORDERED: HYDROCODONE/ACETAMIN 5/325MG TAB PO PRN (10:45)
[2017-08-25 10:56] LABS: HEMATOCRIT 36.8 % (37-47); HEMOGLOBIN 12.2 g/dL (12.0-16.0); MEAN CELL VOLUME 84.2 fL (80-100); MEAN CORPUSCULAR HEMOGLOBIN 27.9 pg (25-34); MEAN CORPUSCULAR HGB CONC 33.2 g/dl (32-36); PLATELET COUNT 227 K/uL (130-400); RED CELL DISTRIBUTION WIDTH CV 15.2 % (11.5-14.5); RED CELL DISTRIBUTION WIDTH SD 46.9 fL (36.4-46.3); WHITE BLOOD COUNT 12.21 K/uL (4.8-10.8)
[2017-08-25 11:13] LABS: CALCIUM 8.7 mg/dl (8.5-10.1); POTASSIUM 3.3 mmol/L (3.5-5.1)
[2017-08-25] MEDS ORDERED: POTASSIUM CHLORIDE 20 MEQ TABCR PO STA (12:53)
[2017-08-25 14:58] VITALS: BP 132/82; PULSE 67; TEMP 36.7; O2SAT 95
[2017-08-25] MEDS: METFORMIN HCL 500 MG TAB PO SCH (17:55)
[2017-08-25] MEDS: MICONAZOLE NITRATE POWDER 43 GM EXT PRN (18:35)
[2017-08-25] MEDS: LATANOPROST 0.005% OP SOLN 2.5 ML BTL OPB SCH (20:56)
[2017-08-25] MEDS: SENNA 8.6 MG TAB PO SCH (20:56)
[2017-08-25 22:55] VITALS: BP 103/64; PULSE 71; TEMP 36.8; O2SAT 94
[2017-08-26] MEDS: ACETAMINOPHEN 500 MG TAB PO SCH (05:57)
[2017-08-26 07:09] LABS: CREATININE 0.95 mg/dl (0.60-1.20)
[2017-08-26 07:10] LABS: CALCIUM 8.6 mg/dl (8.5-10.1); POTASSIUM 3.8 mmol/L (3.5-5.1)
[2017-08-26 07:44] VITALS: BP 129/71; PULSE 69; TEMP 36.9; O2SAT 94
[2017-08-26] MEDS: INSULIN ASPART 100 UNITS/ML 3 ML PEN SC SCH (08:00)
--- NOTE | 2017-08-26 08:01 | Orthopedic Progress Note ---
Orthopedic Progress Note Date of Service Aug 26, 2017. Subjective Post OP Day: 3 Reports: feeling well, Denies: chest pain, SOB, nausea / vomiting, light headedness, calf pain Additional Notes: DC HELD YESTERDAY DUE TO NAUSEA ISSUES. FEELING MUCH BETTER TODAY. Objective calves soft nontender, N/V intact, capillary refill less than 2 sec., incision C /D/I, A&O x3, toes mobile Date Time Temp Pulse Resp B/P (MAP) Pulse Ox O2 Delivery O2 Flow Rate FiO2 08/26/17 07:44 36.9 69 18 129/71 (90) 94 Room Air 08/25/17 22:55 36.8 71 18 103/64 (77) 94 Room Air 08/25/17 19:30 Room Air 08/25/17 15:46 Room Air 08/25/17 14:58 36.7 67 16 132/82 (99) 95 Room Air Laboratory Results 24 Hours: Test 08/25/17 10:45 Hematocrit 36.8 % Hemoglobin 12.2 g/dL Assessment & Plan Assessment: POD 3 s/p Left TKA Poly change and revision of patella. Plan: PT/OT will plan on d/c home with HHPT with advantage- DC HOME TODAY DVT proph with GUANACO/SCD/Xarelto Inhouse Planning Pain Management: Ultram, Morphine, PO Tylenol, Oxy IR DVT Prophylaxis: TEDs, SCDs, Xarelto Discharge Planning Discharge Planning: home with home health DVT Prophylaxis: TEDs, SCDs, ASA Therapy: Physical Therapy
[2017-08-26] MEDS: MULTIVITAMIN TAB PO SCH (08:23)
[2017-08-26] MEDS: FERROUS GLUCONATE 324 MG TAB PO SCH (08:23)
[2017-08-26] MEDS: METOPROLOL TARTRATE 25 MG TAB PO SCH (08:24)
[2017-08-26] MEDS: RIVAROXABAN 10 MG TAB PO SCH (08:24)
[2017-08-26] MEDS: DOCUSATE SODIUM 100 MG CAP PO SCH (08:24)
[2017-08-26] MEDS: LISINOPRIL 10 MG TAB PO SCH (08:25)
[2017-08-26] MEDS ORDERED: POTASSIUM CHLORIDE 20 MEQ TABCR PO SCH (09:00)
[2017-08-26 09:41] VITALS: BP 129/71; PULSE 69; TEMP 36.9; O2SAT 94
--- NOTE | 2017-08-27 11:25 | EDITING REQUIRED CODING QUERY ---
BMI To promote full compliance with coding requirements relating to patient care, physician participation is requested in all cases of joiner uncertainty. Please assist us with the question(s) below: Please place an X within the parenthesis (x). If other, please document: BMI 52 was documented in this record for this patient. If the BMI is significant, please check the box that provides a more specific associated diagnosis: (x ) Overweight/Obese ( ) Obesity ( ) Morbid obesity ( ) Obesity Hypoventilation Syndrome (OHS) ( ) Heathy weight, not significant ( ) Underweight/Thin ( ) Other, please specify Thank you Mei Allen
--- NOTE | 2017-08-28 00:04 | DISCHARGE SUMMARY ---
DISCHARGE DIAGNOSIS: Broken polyethylene bearing, left total knee arthroplasty with worn patellar component. SECONDARY DIAGNOSES: Hypertension, diabetes mellitus type 2, sleep apnea with use of CPAP. CONSULTS: None. COMPLICATIONS: None. PROCEDURE: Polyethylene bearing change, left total knee with revision of patella by Dr. Brock on 08/23/2017. BRIEF HISTORY: As dictated in history and physical. HOSPITAL SUMMARY: The patient was admitted on the above-noted date and had the above-noted surgery performed, which she tolerated well. On the first postoperative day, she was feeling well and had no complaints. She stated that the Prevena dressing was alarming earlier that morning, but nursing staff was able to fix the problem. Pain was controlled fairly well. Calves are soft, nontender, neurovascularly intact. Dressings are clean, dry and intact. Toes are mobile. Vital signs were stable. She was afebrile and hemoglobin was 11.9. The patient was started on physical therapy protocol and continued on DVT prophylaxis and pain management. By her second postoperative day, she has had an episode of nausea the previous evening, but was improved by that morning. Pain was controlled. She had no other complaints. Calves are soft, nontender, neurovascularly intact. Dressings clean, dry and intact. Toes are mobile. Vital signs were stable. She is afebrile. She was continued on the protocol and was remaining stable. The rest of her stay was essentially an eventful and by 08/26/2017, she was feeling well. Her discharge was held the previous day due to nausea that had continued late in the afternoon. She, however, was feeling much better that morning. Calves are soft, nontender, neurovascularly intact. Incision was clean, dry and intact. Toes are mobile. Hemoglobin was 12.2 and she was progressing well with physical therapy and it was felt she could be discharged to home. For further review, please see chart. LAB AND X-RAY DATA: As per chart. DISCHARGE INSTRUCTIONS: The patient was discharged home in satisfactory condition on 08/26/2017. Diet: Diabetic. Activity: Weightbearing as tolerated in left lower extremity. Follow TK instruction sheets and special care instructions as noted. Follow up with Dr. Brock in 2 weeks. DISCHARGE MEDICATIONS: Acetaminophen 1000 mg p.o. q. 8 hours, Colace 100 mg p.o. b.i.d., Zofran 8 mg p.o. q. 8 hours p.r.n., oxycodone 5-10 mg p.o. q. 4 hours p.r.n. Resume home meds as listed including rivaroxaban 1 tab p.o. q.a.m.
== END 2017-08-26 10:26 | disposition home health service (06) | DRG 467 ==
LOC: C.ACU 04:49 → C.3E 07:00 → ENRESERV 11:18
PROVIDERS: ADMIT Orthopaedic Surgery; ATTEND Orthopaedic Surgery
PROC: 0SPD09Z Removal of Liner from Left Knee Joint, Open Approach (ICD-10-PCS; principal; 2017-08-23 07:15)
PROC: 0SRD0J9 Replacement of Left Knee Joint with Synthetic Substitute, Cemented, Open Approach (ICD-10-PCS; principal; 2017-08-23 07:15)
PROC: 0SPD0JC Removal of Synthetic Substitute from Left Knee Joint, Patellar Surface, Open Approach (ICD-10-PCS; principal; 2017-08-23 07:15)
PROC: 0SUD09Z Supplement Left Knee Joint with Liner, Open Approach (ICD-10-PCS; principal; 2017-08-23 07:15)
DX: T84.013A Broken internal left knee prosthesis, initial encounter (principal); Z68.43 Body mass index [BMI] 50.0-59.9, adult; R11.0 Nausea; I10 Essential (primary) hypertension; G47.30 Sleep apnea, unspecified; E11.9 Type 2 diabetes mellitus without complications; E66.3 Overweight; Z79.899 Other long term (current) drug therapy; Z79.01 Long term (current) use of anticoagulants; Z79.84 Long term (current) use of oral hypoglycemic drugs; Z96.653 Presence of artificial knee joint, bilateral; Z88.2 Allergy status to sulfonamides; Z91.041 Radiographic dye allergy status; Y83.1 Surgical operation with implant of artificial internal device as the cause of abnormal reaction of the patient, or of later complication, without mention of misadventure at the time of the procedure

== ENCOUNTER 2017-12-23 12:45 | Emergency (ER) | payer OTHER ==
[~2017-12-23] VITALS: Ht 165.1 cm; Wt 140.4 kg
[2017-12-23 12:45] VITALS: TEMP 36.5; Ht 165.1 cm; Wt 140.4 kg
[~2017-12-23 12:45] MED LIST changes: +ACET-24 PO; -ACETAMINOPHEN 500 MG TAB PO SCH; -CEFAZOLIN 3000MG IV PUSH 22.5 ML IV SCH; +CLC100 PO; -CeleBREX 200 MG CAP PO SCH; -DEXAMETHASONE 4 MG TAB PO SCH; -FAMOTIDINE 20 MG TAB PO SCH; -GABAPENTIN 300 MG CAP PO SCH; -LACTATED RINGER'S 1000ML 1,000 ML IV SCH; -LACTATED RINGER'S 1000ML 500 ML IV SCH; -METOCLOPRAMIDE HCL 10 MG TAB PO SCH; +ONDA-170 PO; -ROPIVACAINE 5MG/ML 30 ML 150 MG, BUPIVACAINE 0.5% MPF INJ 30 ML, EpINEphrine HCL INJ 0.... INFIL SCH; +RXC5 PO
[2017-12-23] MEDS ORDERED: ONDANSETRON INJ 2 MG/ML 2 ML VIAL IV STA ×2 (12:59→14:18)
[2017-12-23] MEDS ORDERED: FENTANYL CITRATE INJ 50 MCG/1 ML 2 ML VIAL IV ONE (13:00)
--- NOTE | 2017-12-23 13:17 | EMERGENCY ROOM VISIT NOTE ---
History Report prepared by Alli: Nell Spain Under the Supervision of: Dr. Tyler Pacheco M.D. First contact with patient: 12:51 Chief Complaint: FALL Stated Complaint: FALL/HIP PAIN History of Present Illness The patient is a 72 year old female who presents to the Emergency Room with complaints of "burning" left-sided hip pain that began this morning when she was standing up organizing her cupboard. She states that she went to turn but her foot did not turn with her and she felt her hip crack as a result. The patient states that she did not fall after. The patient is able to move her leg and lift it up, but states that it causes her pain in her left hip. She reports that she felt nauseous previously, but only feels nauseous now when she tries to stand up. The patient denies any left knee pain, back pain, or abdominal pain. The patient also denies any numbness in her left leg right now, but states that her left leg was numb on her way to the ED. She denies any previous issues with her hips, but had two knee replacements previously with Dr. Brock. The patient's family states that the patient is borderline diabetic and has hypertension. The patient is on Xarelto because her heart occasionally goes out of rhythm. Her heart began to occasionally go out of rhythm after her knee surgery. Source of History: patient, family Onset: this morning Position: other (left hip) Quality: burning Modifying Factors (Worsening): movement, elevation Associated Symptoms: + nausea, No abdominal pain, No back pain Review of Systems See HPI for pertinent positives and negatives. A total of ten systems were reviewed and were otherwise negative. Past Medical & Surgical Medical Problems: (1) painful left TKA with broken poly bearing Social History Smoking Status: Former Smoker Marital Status: Housing Status: lives with family Occupation Status: retired Current/Historical Medications Scheduled Acetaminophen (Sb Non-Aspirin Extra Stre), 1,000 MG PO Q8 Calcium Carbonate-Cholecalcife (Calcium 600+D 600-800 mg-Unit), 1 TAB PO DAILY Hydrochlorothiazide (Hctz), 25 MG PO QAM Latanoprost (Xalatan 0.005% Oph Nathalie), 1 DROPS OPB HS Lisinopril (Prinivil), 10 MG PO QAM Metformin Hcl (Glucophage), 500 MG PO QPM Metoprolol Tartrate (Lopressor) (Lopressor), 25 MG PO QAM Potassium (Potassium), 99 MG PO DAILY Rivaroxaban (Xarelto), 1 TAB PO QAM Scheduled PRN Ibuprofen (Motrin), 600 MG PO TID PRN for Pain Allergies Coded Allergies: Iodinated Contrast Media (Verified Allergy, Intermediate, RASH ON FOOT, SWELLING, 12/23/17) Sulfa Drugs (Verified Allergy, Unknown, RASH/ITCHING, 12/23/17) Sulfamethoxazole (Verified Allergy, Unknown, RASH/ITCHING, 12/23/17) Physical Exam Vital Signs Date Time Temp Pulse Resp B/P (MAP) Pulse Ox O2 Delivery O2 Flow Rate FiO2 12/23/17 17:15 78 20 135/62 98 12/23/17 14:30 75 22 131/55 98 Room Air 12/23/17 12:45 36.5 67 24 140/88 97 Room Air Physical Exam GENERAL: Awake, alert, well-appearing HENT: Normocephalic, atraumatic. Oropharynx unremarkable. EYES: Normal conjunctiva. Sclera non-icteric. NECK: Supple. No nuchal rigidity. RESPIRATORY: Clear to auscultation. No wheezes. Normal respiratory effort. CARDIAC: Normal rate. Normal rhythm. Extremities warm and well perfused. GI: Soft, non-distended. No tenderness to palpation. No rebound or guarding. No masses. RECTAL: Deferred. MUSCULOSKELETAL: Atraumatic. Chest examination reveals no tenderness. There is no CVA tenderness to palpation. LOWER EXTREMITIES: Calves are equal size bilaterally and non-tender. No edema. Moderate tenderness surrounding the left hip. Pain on passive ROM. No tenderness of the knees or ankles. Intact distal sensation. NEURO: Normal sensorium. No sensory or motor deficits noted. No facial droop. SKIN: Warm and dry. No rash or jaundice noted. Medical Decision & Procedures ER Provider Diagnostic Interpretation: Radiology results as stated below per my review and radiologist interpretation: L PELVIS/UNILATERAL HIP 2-3VIEWS CLINICAL HISTORY: PAIN L HIP, TWISTED THEN SEVERE PAIN COMPARISON STUDY: None. FINDINGS: No fracture or dislocation within the pelvis or hips. The sacrum is intact. Suture material in the lower pelvis and a few pelvic phleboliths. Mild osteoarthritis within the bilateral hips and bilateral sacroiliac joints. IMPRESSION: 1. No fracture or dislocation within the pelvis or hips. 2. 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 Electronically signed by: Jay Arnold M.D. 12/23/2017 1:48 PM Dictated Date/Time: 12/23/2017 1:45 PM L HIP-LOWER EXTREMITY WITHOUT CT DOSE: 218.92 mGy.cm HISTORY: Pain pain, eval occult frx TECHNIQUE: Multiaxial CT images of the left hip were performed and reformatted in the sagittal and coronal plane without the use of contrast. A dose lowering technique was utilized adhering to the principles of ALARA. COMPARISON: None. FINDINGS: No fracture or dislocation. Soft tissues are unremarkable. Mild degenerative changes throughout. IMPRESSION: No fractures. Mild degenerative change. The above report was generated using voice recognition software. It may contain grammatical, syntax or spelling errors. Electronically signed by: Kalyan Kc M.D. 12/23/2017 3:21 PM Dictated Date/Time: 12/23/2017 3:18 PM Laboratory Results 12/23/17 13:13 Red Blood Count 4.88, Mean Corpuscular Volume 83.0, Mean Corpuscular Hemoglobin 27.3, Mean Corpuscular Hemoglobin Concent 32.8, Mean Platelet Volume 9.9, Neutrophils (%) (Auto) 75.5, Lymphocytes (%) (Auto) 16.0, Monocytes (%) (Auto) 6.5, Eosinophils (%) (Auto) 1.2, Basophils (%) (Auto) 0.6, Neutrophils # (Auto) 6.24, Lymphocytes # (Auto) 1.32, Monocytes # (Auto) 0.54, Eosinophils # (Auto) 0.10, Basophils # (Auto) 0.05 12/23/17 13:13 Test 12/23/17 13:13 White Blood Count 8.27 K/uL (4.8-10.8) Red Blood Count 4.88 M/uL (4.2-5.4) Hemoglobin 13.3 g/dL (12.0-16.0) Hematocrit 40.5 % (37-47) Mean Corpuscular Volume 83.0 fL (80-100) Mean Corpuscular Hemoglobin 27.3 pg (25-34) Mean Corpuscular Hemoglobin Concent 32.8 g/dl (32-36) Platelet Count 257 K/uL (130-400) Mean Platelet Volume 9.9 fL (7.4-10.4) Neutrophils (%) (Auto) 75.5 % Lymphocytes (%) (Auto) 16.0 % Monocytes (%) (Auto) 6.5 % Eosinophils (%) (Auto) 1.2 % Basophils (%) (Auto) 0.6 % Neutrophils # (Auto) 6.24 K/uL (1.4-6.5) Lymphocytes # (Auto) 1.32 K/uL (1.2-3.4) Monocytes # (Auto) 0.54 K/uL (0.11-0.59) Eosinophils # (Auto) 0.10 K/uL (0-0.5) Basophils # (Auto) 0.05 K/uL (0-0.2) RDW Standard Deviation 47.7 fL (36.4-46.3) RDW Coefficient of Variation 15.8 % (11.5-14.5) Immature Granulocyte % (Auto) 0.2 % Immature Granulocyte # (Auto) 0.02 K/uL (0.00-0.02) Prothrombin Time 13.0 SECONDS (9.0-12.0) Prothromb Time International Ratio 1.2 (0.9-1.1) Activated Partial Thromboplast Time 39.5 SECONDS (21.0-31.0) Partial Thromboplastin Ratio 1.5 Anion Gap 8.0 mmol/L (3-11) Est Creatinine Clear Calc Drug Dose 79.7 ml/min Estimated GFR () 73.1 Estimated GFR (Non- 63.0 BUN/Creatinine Ratio 18.7 (10-20) Calcium Level 9.5 mg/dl (8.5-10.1) Laboratory results reviewed by me Medications Administered Medications (Trade) Dose Ordered Sig/Ronnie Route Start Time Stop Time Status Last Admin Dose Admin Fentanyl Citrate (Fentanyl Inj) 50 mcg NOW ONCE IV 12/23/17 13:00 12/23/17 13:01 DC 12/23/17 13:20 50 MCG Ondansetron HCl (Zofran Inj) 4 mg NOW STAT IV 12/23/17 12:59 12/23/17 13:01 DC 12/23/17 13:20 4 MG Ketorolac Tromethamine (Toradol Inj) 15 mg NOW STAT IV 12/23/17 14:18 12/23/17 14:20 DC 12/23/17 14:46 15 MG Ondansetron HCl (Zofran Inj) 4 mg NOW STAT IV 12/23/17 14:18 12/23/17 14:20 DC 12/23/17 14:46 4 MG Acetaminophen 1000 mg/Empty Bag 100 ml @ 400 mls/hr ONE STAT IV 12/23/17 14:18 12/23/17 14:32 DC 12/23/17 14:47 400 MLS/HR ED Course 1252: The patient was evaluated in room A11B. A complete history and physical exam was performed. 1259: Ordered Zofran Inj 4 mg IV. 1300: Ordered Fentanyl Inj 50 mcg IV. 1418: Ordered Acetaminophen 1000 mg/Empty Bag 100 ml @ 400 mls/hr IV, Zofran Inj 4 mg IV, Toradol Inj 15 mg IV. Medical Decision Differential diagnosis: Etiologies such as fracture, dislocation, intra-abdominal, pneumothorax, intrathoracic , intracranial, neurologic, as well as other traumatic pathologies were entertained. Patient presents after standing cleaning cabinets and twisting severe pain in her left hip. Denies any falls. Her pain and burning to left hip. No other injury reported. Pain with range of motion here LLE in hip and tenderness over the area. No overlying skin changes or bruising. Benign abdomen. Concern for possible fracture versus dislocation versus musculoskeletal injury of hip. Doubt back injury given lack of mechanism. Less likely to be infected given sudden onset and also doubt crystalline pathology. [place] hip. No prior history of hip issues. X-ray of the hip and pelvis without evidence of fracture or dislocation. Likely this is more musculoskeletal in nature. Labs unremarkable. Given pain medicine for symptomatic treatment. Given still significant pain with any arranging a CT for occult fracture was completed. This was negative is well. Given some Tylenol and pain was significantly improved. Ambulatory with minimal assist. Feels she is stable for discharge and outpatient follow-up. Likely muscular skeletal injury. Medication Reconcilliation Current Medication List: was personally reviewed by me Blood Pressure Screening Patient's blood pressure: Elevated blood pressure Blood pressure disposition: Elevated BP felt to be situational Impression Primary Impression: Lateral pain of left hip Scribe Attestation The scribe's documentation has been prepared under my direction and personally reviewed by me in its entirety. I confirm that the note above accurately reflects all work, treatment, procedures, and medical decision making performed by me. Departure Information Dispostion Home / Self-Care Prescriptions Ibuprofen (Motrin) 600 Mg Tab 600 MG PO TID Y for Pain, #15 TAB With Food Prov: Tyler Pacheco M.D. 12/23/17 Referrals Dennis Alvarez M.D. (PCP) Forms HOME CARE DOCUMENTATION FORM, IMPORTANT VISIT INFORMATION Patient Instructions My [facility] Additional Instructions Continue to be careful to avoid falls or sudden movements. Discussed some stretches and using ice or heat to help her with pain. Utilize the prescribed pain medication as well. Tylenol can be helpful too. Maintain hydration. Follow -up with her regular doctor within next week. If any times you have concerns or new symptoms please feel free to return here for reevaluation.
[2017-12-23 13:23] LABS: BASO % 0.6 %; BASO ABS # 0.05 K/uL (0-0.2); EOS % 1.2 %; HEMATOCRIT 40.5 % (37-47); HEMOGLOBIN 13.3 g/dL (12.0-16.0); IG# 0.02 K/uL (0.00-0.02); LYMPH ABS # 1.32 K/uL (1.2-3.4); MEAN CORPUSCULAR HEMOGLOBIN 27.3 pg (25-34); MEAN CORPUSCULAR HGB CONC 32.8 g/dl (32-36); MEAN PLATELET VOLUME 9.9 fL (7.4-10.4); MONO % 6.5 %; MONO ABS # 0.54 K/uL (0.11-0.59); NEUT % 75.5 %; NEUT ABS # 6.24 K/uL (1.4-6.5); PLATELET COUNT 257 K/uL (130-400); RED CELL DISTRIBUTION WIDTH CV 15.8 % (11.5-14.5); RED CELL DISTRIBUTION WIDTH SD 47.7 fL (36.4-46.3); WHITE BLOOD COUNT 8.27 K/uL (4.8-10.8)
[2017-12-23 13:31] LABS: INR 1.2 (0.9-1.1); PTT PATIENT 39.5 SECONDS (21.0-31.0)
[2017-12-23 13:39] LABS: CALCIUM 9.5 mg/dl (8.5-10.1); CREATININE 0.91 mg/dl (0.60-1.20); POTASSIUM 3.5 mmol/L (3.5-5.1)
[2017-12-23] MEDS ORDERED: POTA99TA PO (13:46)
[2017-12-23] MEDS ORDERED: CALC-459 PO (13:46)
--- NOTE | 2017-12-23 13:49 | DIAGNOSTIC IMAGING REPORT ---
L PELVIS/UNILATERAL HIP 2-3VIEWS CLINICAL HISTORY: PAIN L HIP, TWISTED THEN SEVERE PAIN COMPARISON STUDY: None. FINDINGS: No fracture or dislocation within the pelvis or hips. The sacrum is intact. Suture material in the lower pelvis and a few pelvic phleboliths. Mild osteoarthritis within the bilateral hips and bilateral sacroiliac joints. IMPRESSION: 1. No fracture or dislocation within the pelvis or hips. 2. 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 Electronically signed by: Jay Arnold M.D. 12/23/2017 1:48 PM Dictated Date/Time: 12/23/2017 1:45 PM
[2017-12-23] MEDS ORDERED: KETOROLAC TROMETHAMINE 30 MG/ML VIAL IV STA (14:18)
[2017-12-23] MEDS ORDERED: ACETAMINOPHEN IV 1,000 MG in EMPTY BAG 0 ML IV STA (14:18)
[2017-12-23] MEDS ORDERED: ACETAMINOPHEN 1000 MG/100 ML IV IV ONE (14:45)
--- NOTE | 2017-12-23 15:23 | DIAGNOSTIC IMAGING REPORT ---
L HIP-LOWER EXTREMITY WITHOUT CT DOSE: 218.92 mGy.cm HISTORY: Pain pain, eval occult frx TECHNIQUE: Multiaxial CT images of the left hip were performed and reformatted in the sagittal and coronal plane without the use of contrast. A dose lowering technique was utilized adhering to the principles of ALARA. COMPARISON: None. FINDINGS: No fracture or dislocation. Soft tissues are unremarkable. Mild degenerative changes throughout. IMPRESSION: No fractures. Mild degenerative change. The above report was generated using voice recognition software. It may contain grammatical, syntax or spelling errors. Electronically signed by: Kalyan Kc M.D. 12/23/2017 3:21 PM Dictated Date/Time: 12/23/2017 3:18 PM
[2017-12-23] MEDS ORDERED: IBUP600T44 PO (16:36)
[2017-12-23 17:15] VITALS: BP 135/62; PULSE 78; O2SAT 98
== END 2017-12-23 17:15 | disposition home or self-care (01) ==
LOC: EDBD 12:45 → C.EDA 12:46
DX: M25.552 Pain in left hip (principal); I10 Essential (primary) hypertension; Z79.01 Long term (current) use of anticoagulants; Z79.84 Long term (current) use of oral hypoglycemic drugs; Z79.899 Other long term (current) drug therapy; Z88.2 Allergy status to sulfonamides; Z88.8 Allergy status to other drugs, medicaments and biological substances

== ENCOUNTER 2020-01-25 07:41 | Inpatient (IN) ==
[2020-01-25] MEDS ORDERED: SODIUM CHLORIDE 0.9% 1000ML 1,000 ML IV STA (07:55)
[2020-01-25] MEDS ORDERED: METOPROLOL TARTRATE 1 MG/ML VIAL IV STA (07:55)
[2020-01-25] MEDS ORDERED: SODIUM CHLORIDE 0.9% 1000ML 500 ML IV ONE (07:55)
--- NOTE | 2020-01-25 07:55 | Emergency Department Note ---
Impression & Plan Atrial fibrillation with rapid ventricular response ED Provider Note INFORMANT: Patient ED PROVIDER(S): Dav Harding MD CHIEF COMPLAINT: Rapid heart beat PLAN: Disposition:Admitted Condition: Good MEDICAL DECISION MAKING: The patient presented from the surgery center because of rapid atrial fibrillation. She was also noting some chest pressure and back discomfort. The back discomfort has been going on and off for the last 2 weeks. The patient was in a rapid atrial fibrillation on ECG. Her A. fib was treated with IV metoprolol which helped control her heart rate. Blood pressure was stable. Her she was hydrated. Her chemistry panel and CBC revealed a slight leukocytosis, mild hypokalemia and hypomagnesemia. Potassium and magnesium were repleted. Troponin is negative. Given the symptoms regarding her chest and back, further management in the hospital was deemed appropriate. Patient and family were in agreement. Consultation was made with the [facility] service. The patient was evaluated in the ER for further management. Triage Nursing notes reviewed and agree them. Additional history obtained from EMS. Vital Signs: reviewed and remarkable for tachycardia Differential diagnosis: Premature contractions, electrolyte abnormality, cardiac dysrhythmia, thyroid dysfunction, pulmonary embolism, infection, gastrointestinal, as well as other pathologies. Diagnostics interpreted by me: ECG: Rate:121 Rhythm:Afib [place]:nml QRS:nml ST segements:NST, no elevation or depression Other:No pvc, pac Cardiac Monitoring: Cardiac monitoring ordered by me: The patient was placed on continuous cardiac monitoring and observed. It revealed rapid afib at 114 beats per minute without ectopy or evidence of dysrhythmia. Imaging studies: Chest x-ray. Findings: A chest x-ray was performed and revealed no pneumothorax, effusion, infiltrate, pulmonary edema, free air under the diaphragm, or wide mediastinum. Impression: No acute disease. [facility] HPI: The patient is a 75 year old female who presents to the Emergency Room with complaints of rapid heart beat. This started this morning and is due to rapid a trial fibrillation. The patient also notes the following associated symptoms, intermittent pains between her shoulders with exertion, wrist pain on right, chest pain, dizziness. The patient has found no relieving factors. Back pain was 10/10 this morning. Current pain is rated as 1/10. Pt denies LOC, headache, fevers, chills, diaphoresis, visual changes, neck pain, breathing difficulties, nausea, vomiting, abdominal pain, melena, hematochezia, urinary symptoms, numbness, weakness, lymphadenopathy, rash, or other complaints. ROS: See above HPI for pertinent positives & negatives. A total of 10 systems reviewed and were otherwise negative. PAST MEDICAL HISTORY:See Below, Afib, DM PAST SURGICAL HISTORY:See Below, FAMILY HISTORY:See Below SOCIAL HISTORY:See Below, No tobacco, no ETOH HOME MEDICATIONS:See Below ALLERGIES:See Below VITALS:See Below PHYSICAL EXAMINATION: GENERAL: Awake, alert, uncomfortable-appearing, in no distress HENT: Normocephalic, atraumatic. Oropharynx unremarkable. EYES: Normal conjunctiva. Sclera non-icteric. NECK: Inspection normal. Non-tender. Supple. No nuchal rigidity. FROM. No masses. RESPIRATORY: Clear to auscultation. No wheezes. No rales. Normal respiratory effort. CARDIAC: Tacycardic rate. Irregular rhythm. No murmurs. No rubs. Extremities warm and well perfused. Pulses equal. No JVD. GI: Soft, non-distended. No tenderness to palpation. No rebound or guarding. No masses. RECTAL: Deferred. MUSCULOSKELETAL: Atraumatic. Chest examination reveals no tenderness. The back is symmetrical on inspection without obvious abnormality. There is no CVA tenderness to palpation. No joint edema. LOWER EXTREMITIES: Calves are equal size bilaterally and non-tender. No edema. No discoloration. NEURO: Normal sensorium. No sensory or motor deficits noted. SKIN: No rash or jaundice noted. Dav Harding MD Past Med/Surg History Medical History (Updated 01/25/20 @ 11:02 by Gregory Armstrong MD) Diabetes mellitus, type 2 NIDDM Glaucoma Hypertension Paroxysmal atrial fibrillation Pilar and trichilemmal cysts Pilar cysts Sleep apnea CPAP Surgical History H/O colonoscopy History of ankle surgery RIGHT History of hernia repair Laparoscopic hernia x2 repair: Grade view 1, MAC#3 at [facility] (weight at time of surgery 139.6kg*) History of knee replacement procedure of right knee X2 History of left knee replacement + SUBSEQUENT LEFT KNEE I&D POLY EXCHANGE History of lumpectomy of left breast History of surgical procedure on eye proper using laser Hx of hysterectomy Hx of left cataract extraction Hx of right cataract extraction Family History Sister Breast cancer Father Heart disease Social History Smoking Status: Never smoker Age Started Using Tobacco: 5; Age Quit Using Tobacco: 25; packs per day: 1; Second Hand Exposure: No (PUBLIC ACCESS ONLY NOW); Hx Alcohol Use: No Hx Substance Use: No Preferred Language: [place] Communication Ability: Effective Visual Impairment: Limited Hearing Ability: Normal Integration Project Manager Required: No Beliefs That Will Affect Care: None marital status: Current Living Situation: Spouse current occupational status: retired Feels Safe at Home: Yes Childhood Exposure to Second-Hand Smoke: Yes caffeine: Yes Dental Care, Regularly: No Physical Activity Frequency: Does not Exercise Seatbelt Use: always Sunscreen Use: No Allergies Allergies Allergy/AdvReac Type Severity Reaction Status Date / Time Iodinated Contrast Media Allergy Intermediate RASH ON Verified 01/25/20 08:49 FOOT, SWELLING Sulfa (Sulfonamide Allergy Unknown RASH/ITCHIN Verified 01/25/20 08:49 Antibiotics) G sulfamethoxazole Allergy Unknown RASH/ITCHIN Verified 01/25/20 08:49 G Home Meds Home Medications Medication Instructions Recorded Confirmed docusate sodium 100 mg capsule 100 mg PO QAM cap 09/27/18 01/25/20 calcium carbonate-vitamin D3 1 tab PO DAILY 01/25/20 01/25/20 [Calcium 600 + D(3)] metformin 500 mg PO PM 01/25/20 01/25/20 omega 1-pnu-ddz-fish oil [Nuretin] 2 cap PO DAILY 01/25/20 01/25/20 potassium gluconate 99 mg PO DAILY 01/25/20 01/25/20 Previous Rx's Medication Instructions Recorded CPAP Machine #1 ea 10/25/18 hydrochlorothiazide 25 mg tablet 25 mg PO QAM #90 tab 07/27/19 lisinopril 10 mg tablet 10 mg PO QAM #90 tab 07/27/19 rivaroxaban 20 mg tablet 20 mg PO DAILY #90 tab 07/27/19 metoprolol tartrate 25 mg tablet 25 mg PO QAM #90 tab 01/19/20 Results & Data (ED) Vital Signs Vital Signs - 24 hr 01/25/20 07:50 01/25/20 07:53 01/25/20 08:07 Temperature 36.9 C Temperature Source Oral Pulse Rate 126 H Pulse Rate [Left Finger] 101 H Respiratory Rate 20 18 Blood Pressure 119/79 Blood Pressure [Left Arm] 115/81 Blood Pressure Mean 92 Blood Pressure Mean [Left Arm] 92 Pulse Oximetry 98 98 98 Oxygen Delivery Method Room Air Room Air Room Air Sepsis Recent Fever Within 48 Hours No Sepsis New/Unexplained Change in Mental Status No Sepsis Action Taken by Nursing No Action Required 01/25/20 08:37 01/25/20 09:36 01/25/20 10:51 Temperature Temperature Source Pulse Rate Pulse Rate [Left Finger] 89 93 H 85 Respiratory Rate 18 16 16 Blood Pressure Blood Pressure [Left Arm] 125/77 116/82 103/57 L Blood Pressure Mean Blood Pressure Mean [Left Arm] 93 93 72 Pulse Oximetry 98 97 98 Oxygen Delivery Method Room Air Room Air Room Air Sepsis Recent Fever Within 48 Hours Sepsis New/Unexplained Change in Mental Status Sepsis Action Taken by Nursing Laboratory Data Result diagrams: 01/25/20 07:30 01/25/20 07:30 Lab Results 01/25/20 01/25/20 01/25/20 Range/Units 07:30 07:30 07:30 WBC 10.81 H (4.8-10.8) K/uL RBC 4.93 (4.2-5.4) M/uL Hgb 13.2 (12.0-16.0) g/dL Hct 39.6 (37-47) % MCV 80.3 (80-100) fL MCH 26.8 (25-34) pg MCHC 33.3 (32-36) g/dL RDW Std Deviation 42.4 (36.4-46.3) fL RDW Coeff of Tiffany 14.5 (11.5-14.5) % Plt Count 382 (130-400) K/uL MPV 9.4 (7.4-10.4) fL Immature Gran % (Auto) 0.5 % Neut % (Auto) 75.2 % Lymph % (Auto) 15.6 % [place] % (Auto) 7.9 % Eos % (Auto) 0.6 % Baso % (Auto) 0.2 % Neut # (Auto) 8.14 H (1.4-6.5) K/uL Lymph # (Auto) 1.69 (1.2-3.4) K/uL [place] # (Auto) 0.85 H (0.11-0.59) K/uL Eos # (Auto) 0.06 (0-0.5) K/uL Baso # (Auto) 0.02 (0-0.2) K/uL Immature Gran # (Auto) 0.05 H (0.00-0.02) K/uL PT 11.3 (9.0-12.0) Seconds INR 1.1 (0.9-1.1) APTT 27.9 (21.0-31.0) Seconds PTT Ratio 1.0 Sodium 137 (136-145) mmol/L Potassium 3.4 L (3.5-5.1) mmol/L Chloride 103 (98-107) mmol/L Carbon Dioxide 22 (21-32) mmol/L Anion Gap 12.0 H (3-11) BUN 20 H (7-18) mg/dl Creatinine 1.02 (0.6-1.2) mg/dl Est Cr Clr Drug Dosing 62.9 ml/min Est GFR ( Amer) 62.3 Est GFR (Non-Af Amer) 53.8 BUN/Creatinine Ratio 20.0 (10-20) Glucose 147 H (70-99) mg/dl Calcium 9.6 (8.5-10.1) mg/dl Magnesium 1.5 L (1.8-2.4) mg/dl Total Bilirubin 0.8 (0.2-1) mg/dl AST 15 (15-37) U/L ALT 25 (12-78) U/L Alkaline Phosphatase 76 (45-117) U/L Troponin I < 0.015 (0-0.045) ng/ml Total Protein 7.3 (6.4-8.2) gm/dl Albumin 2.9 L (3.4-5.0) gm/dl Globulin 4.4 H (2.5-4.0) gm/dl Albumin/Globulin Ratio 0.7 L (0.9-2) TSH 2.410 (0.300-4.500) uIu/ml Administered Medications Sodium Chloride (Nss 1000ml) 1,000 mls @ 125 mls/hr IV .Q8H STA Stop: 01/25/20 15:54 Last Admin: 01/25/20 08:34 Dose: 125 mls/hr Documented by: [id number] Discontinued Medications Sodium Chloride (Nss 1000ml) 500 mls @ 999 mls/hr IV .Q31M ONE Stop: 01/25/20 08:25 Last Infusion: 01/25/20 08:33 Dose: 0 mls/hr Documented by: [id number] Admin: 01/25/20 08:02 Dose: 999 mls/hr Documented by: [id number] Magnesium Sulfate/Dextrose (Magnesium Sulfate / D5w) 1 gm in 100 mls @ 100 mls/hr IV NOW STA Stop: 01/25/20 10:30 Last Infusion: 01/25/20 10:35 Dose: 0 mls/hr Documented by: [id number] Admin: 01/25/20 09:35 Dose: 100 mls/hr Documented by: [id number] Metoprolol Tartrate (Metoprolol Tartrate 1 Mg/Ml Vial) 5 mg IV NOW STA Stop: 01/25/20 07:56 Last Admin: 01/25/20 08:02 Dose: 5 mg Documented by: [id number] Metoprolol Tartrate (Metoprolol Tartrate 25 Mg Tab) 25 mg PO ONE STA Stop: 01/25/20 10:36 Last Admin: 01/25/20 10:47 Dose: 25 mg Documented by: [id number] Potassium Chloride (Potassium Chloride 20 Meq Tabcr) 20 meq PO NOW STA Stop: 01/25/20 09:31 Last Admin: 01/25/20 09:34 Dose: 20 meq Documented by: [id number] Discharge Plan Visit Data Chief Complaint: Cardiac Assessment Stated Complaint: afib ED Provider: Dav Harding Discharge Problem: Atrial fibrillation with rapid ventricular response Prescriptions Prescriptions: No Action Xarelto 20 mg tablet 20 mg PO DAILY Qty: 90 RF: 3 hydrochlorothiazide 25 mg tablet 25 mg PO QAM Qty: 90 RF: 3 lisinopril 10 mg tablet 10 mg PO QAM Qty: 90 RF: 3 metoprolol tartrate 25 mg tablet 25 mg PO QAM Qty: 90 RF: 3 docusate sodium 100 mg capsule 100 mg PO QAM RF: 0 (DME) CPAP Machine Misc See Dose Instructions .ROUTE .MEDSUPPLY Qty: 1 RF: 0 calcium carbonate-vitamin D3 [Calcium 600 + D(3)] 600 mg(1,500mg) -400 unit Tablet 1 tab PO DAILY RF: 0 potassium gluconate 595 mg (99 mg) Tablet 99 mg PO DAILY RF: 0 Nuretin 500-100 mg Capsule 2 cap PO DAILY RF: 0 metformin 500 mg tablet extended release 24 hr 500 mg PO PM RF: 0
[2020-01-25 08:05] LABS: Basophils # (auto) 0.02 K/uL (0-0.2); Basophils % (auto) 0.2 %; Eosinophils # (auto) 0.06 K/uL (0-0.5); Eosinophils % (auto) 0.6 %; Hematocrit (blood only) 39.6 % (37-47); Hemoglobin 13.2 g/dL (12.0-16.0); Immature Granulocytes # (auto) 0.05 K/uL (0.00-0.02); Immature Granulocytes % (auto) 0.5 %; Lymphocytes # (auto) 1.69 K/uL (1.2-3.4); Lymphocytes % (auto) 15.6 %; Mean Corpuscular Hemoglobin 26.8 pg (25-34); Mean Corpuscular Hgb Conc 33.3 g/dL (32-36); Mean Corpuscular Volume 80.3 fL (80-100); Mean Platelet Volume 9.4 fL (7.4-10.4); Monocytes # (auto) 0.85 K/uL (0.11-0.59); Monocytes % (auto) 7.9 %; Neutrophils # (auto) 8.14 K/uL (1.4-6.5); Neutrophils % (auto) 75.2 %; Platelet Count 382 K/uL (130-400); RDW Coefficient of Variation 14.5 % (11.5-14.5); RDW Standard Deviation 42.4 fL (36.4-46.3); Red Blood Count 4.93 M/uL (4.2-5.4); White Blood Count 10.81 K/uL (4.8-10.8)
[2020-01-25 08:16] LABS: INR 1.1 (0.9-1.1); Partial Thromboplastin Time 27.9 Seconds (21.0-31.0); Prothrombin Time 11.3 Seconds (9.0-12.0)
[2020-01-25 08:52] LABS: Alanine Aminotransferase 25 U/L (12-78); Albumin Globulin Ratio 0.7 (0.9-2); Albumin Level 2.9 gm/dl (3.4-5.0); Alkaline Phosphatase 76 U/L (45-117); Aspartate Aminotransferase 15 U/L (15-37); Bilirubin,Total 0.8 mg/dl (0.2-1); Blood Urea Nitrogen 20 mg/dl (7-18); Calcium 9.6 mg/dl (8.5-10.1); Carbon Dioxide 22 mmol/L (21-32); Chloride 103 mmol/L (98-107); Creatinine Clr Calc Pharmacy 62.9 ml/min; Est GFR (African American) 62.3; Est GFR (Non-African American) 53.8; Globulin 4.4 gm/dl (2.5-4.0); Glucose 147 mg/dl (70-99); Potassium 3.4 mmol/L (3.5-5.1); Sodium 137 mmol/L (136-145); Total Protein 7.3 gm/dl (6.4-8.2)
[2020-01-25 09:06] LABS: Magnesium 1.5 mg/dl (1.8-2.4); Troponin I < 0.015 ng/ml (0-0.045)
[2020-01-25] MEDS ORDERED: POTASSIUM CHLORIDE 20 MEQ TABCR PO STA (09:30)
[2020-01-25] MEDS ORDERED: MAGNESIUM SULFATE / D5W 1 GM/100 ML BAG IV STA (09:31)
--- NOTE | 2020-01-25 10:08 | XRay Report ---
XR chest 1V portable CLINICAL HISTORY: chest pain, rapid atrial fibrillation COMPARISON STUDY: 10/13/2010 FINDINGS: The heart is the upper limits of normal in size. There is no failure. There is no focal pul monary consolidation. There are no pleural effusions. There are subsegmental atelectatic changes at t he left lung base. Arthritic changes are present within the shoulders.[ IMPRESSION: No active disease in the chest. ACT 112: Negative or not required by law. Electronically signed by: Jhony Nugent M.D. 01/25/2020 10:07 AM
[2020-01-25] MEDS ORDERED: METOPROLOL TARTRATE 25 MG TAB PO STA (10:35)
--- NOTE | 2020-01-25 11:03 | History & Physical Report ---
Date of Service January 25, 2020 Assessment & Plan (1) Chest pain: Appears to be having 2 different pains which she finds hard to distinguish between them. Certainly rate related demand ischemia (doing much better after getting her usual metoprolol dose) - potentially concerning for underlying CAD. But mainly her residual pain appears to be muscular. Serial troponins. Consult cardiology to assess for further workup. (2) Atrial fibrillation with rapid ventricular response: Rate controlled after 5mg IV metoprolol given in ER and her usual metoprolol tatrate 25mg PO daily dose. Continue anticoagulation with Xarelto 20mg PO daily (3) Type 2 diabetes mellitus: HbA1C 6.1 in October, repeat with AM labs T2DM diet Novolog for correction only, hold metofmin (4) Hypertension: Continue her routine medications HCTZ, metoprolol, lisinopril Admission and Anticipated Discharge Date Admission Date: 01/25/2020 History of Present Illness Chief Complaint: Chest pain, tachycardia Primary Care Provider: Dennis Alvarez MD Cecilia Salazar is a 75 year old female who presents to the ER with rapid heart rate and chest pain. She had a planned carpal tunnel surgery today therefore was told to not take her usual metoprolol. On arrival her anethesiologist noted she was in atrial fibrillation with a rapid ventricular rate while she was also complaining of chest pain therefore she was sent to the ER for further workup. Her chest pain has actually been going on since she woke up this morning. She describes it as a sharp, burning sensation in centre of her chest. No radiation. Severity 10/10 at worst when she tried to get into her truck. Non-exertional. Becomes more of a sharp pain when she moves in certain ways. In addition she has been having pain on and between her shoulders across her back. This has been exacebated and intermittent comes on as a sharp pain for many months but appears to be worse in the last week. This pain is reproducible on palpation and is correlated to her lack of mobility recently. Allergies Allergy/AdvReac Type Severity Reaction Status Date / Time Iodinated Contrast Media Allergy Intermediate RASH ON Verified 01/25/20 08:49 FOOT, SWELLING Sulfa (Sulfonamide Allergy Unknown RASH/ITCHIN Verified 01/25/20 08:49 Antibiotics) G sulfamethoxazole Allergy Unknown RASH/ITCHIN Verified 01/25/20 08:49 G Home Medications Home Medications Medication Instructions Recorded Confirmed Type docusate sodium 100 mg capsule 100 mg PO QAM cap 09/27/18 01/25/20 History CPAP Machine #1 ea 10/25/18 11/27/19 Rx hydrochlorothiazide 25 mg tablet 25 mg PO QAM #90 tab 07/27/19 01/25/20 Rx lisinopril 10 mg tablet 10 mg PO QAM #90 tab 07/27/19 01/25/20 Rx rivaroxaban 20 mg tablet 20 mg PO DAILY #90 tab 07/27/19 01/25/20 Rx metoprolol tartrate 25 mg tablet 25 mg PO QAM #90 tab 01/19/20 01/25/20 Rx calcium carbonate-vitamin D3 1 tab PO DAILY 01/25/20 01/25/20 History [Calcium 600 + D(3)] metformin 500 mg PO PM 01/25/20 01/25/20 History omega [id number]-fish oil [Nuretin] 2 cap PO DAILY 01/25/20 01/25/20 History potassium gluconate 99 mg PO DAILY 01/25/20 01/25/20 History Past Med/Surg History Medical History Diabetes mellitus, type 2 NIDDM Glaucoma Hypertension Paroxysmal atrial fibrillation Pilar and trichilemmal cysts Pilar cysts Sleep apnea CPAP Surgical History H/O colonoscopy History of ankle surgery RIGHT History of hernia repair Laparoscopic hernia x2 repair: Grade view 1, MAC#3 at [facility] (weight at time of surgery 139.6kg*) History of knee replacement procedure of right knee X2 History of left knee replacement + SUBSEQUENT LEFT KNEE I&D POLY EXCHANGE History of lumpectomy of left breast History of surgical procedure on eye proper using laser Hx of hysterectomy Hx of left cataract extraction Hx of right cataract extraction Family History Sister Breast cancer Father Heart disease Social History Smoking Status: Former smoker Age Started Using Tobacco: 5; Age Quit Using Tobacco: 25; packs per day: 1; Second Hand Exposure: No (PUBLIC ACCESS ONLY NOW); Hx Alcohol Use: No Hx Substance Use: No Preferred Language: Slovenian Communication Ability: Effective Visual Impairment: Limited Hearing Ability: Normal Inspector Outside Steam Distribution Required: No Beliefs That Will Affect Care: None marital status: Current Living Situation: Spouse and Family current occupational status: retired Other Information That Helps Us Care for You: No Feels Safe at Home: Yes Safety Concerns: Feels Safe At This Time Childhood Exposure to Second-Hand Smoke: Yes caffeine: Yes Dental Care, Regularly: No Physical Activity Frequency: Does not Exercise Seatbelt Use: always Sunscreen Use: No Review of Systems Review of Systems: All systems reviewed & are unremarkable except as noted in HPI & below Physical Exam Constitutional: well developed, + acute distress (mild chest and back pain) and + morbidly obese; + not well nourished Eyes: PERRL, conjunctivae normal, anicteric sclerae ENMT: external ear and nose normal, oropharynx normal Neck: trachea midline, no thyromegaly Respiratory: normal respiratory effort, lungs clear to auscultation Cardiovascular: Rate/Rhythm: regular rate and + irregularly irregular Heart Sounds: no murmur Gastrointestinal (Abdomen): normal bowel sounds, soft, nontender, no hepatosplenomegaly Musculoskeletal: no cyanosis or clubbing, extremities motor strength 5/5 Skin: no rashes, warm and dry (no areas of cellulitis) Neurologic: moves all extremities and awake; not confused Psychiatric: A+Ox3, euthymic affect Genitourinary: no CVA tenderness Results & Data Results & Data ([facility]) Vital Signs (Past 12 Hours) Vital Signs Temp Pulse Pulse Resp BP BP Pulse Ox 01/25/20 10:51 85 16 103/57 L 98 01/25/20 09:36 93 H 16 116/82 97 01/25/20 08:37 89 18 125/77 98 01/25/20 08:07 101 H 18 115/81 98 01/25/20 07:53 98 01/25/20 07:50 36.9 C 126 H 20 119/79 98 Diagnostic Findings XR chest 1V portable IMPRESSION: No active disease in the chest. ECG Indication: chest pain Rate (beats per minute): 121 Rhythm: atrial fibrillation Comparison ECG Date: from (11/29/2018) Change: no significant change Code Status & VTE Plan Code Status Full VTE Prophylaxis Plan VTE Prophylaxis will be ordered: Yes PG Care Time/CCT Total # of Minutes Spent Total Time Spent with Patient: Total time spent is greater than 50% in coordination of care (as documented) at patient's floor/unit and/or counseling patient: Coding Level of Care Code 74736 OBS Care - Level 2 Diagnoses Chest pain R07.9 Atrial fibrillation with rapid ventricular response I48.91 Type 2 diabetes mellitus E11.9 Diabetes mellitus complication status: without complication 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
[2020-01-25] MEDS ORDERED: CYCLOBENZAPRINE HCL 10 MG TAB PO PRN (14:00)
[2020-01-25] MEDS ORDERED: ACETAMINOPHEN 325 MG TAB PO PRN (14:00)
[2020-01-25] MEDS ORDERED: GLUCOSE 40% GEL 15 GM TUBE PO PRN (14:27)
[2020-01-25] MEDS ORDERED: DEXTROSE 50% 50 ML SYRINGE IV PRN (14:27)
[2020-01-25] MEDS ORDERED: GLUCOSE 10 TABS/TUBE PO PRN (14:27)
[2020-01-25] MEDS ORDERED: CARBOHYDRATES FOR HYPOGLYCEMIA PO PRN (14:27)
[2020-01-25] MEDS ORDERED: GLUCAGON FOR INJ 1 MG VIAL SQ PRN (14:27)
[2020-01-25] MEDS: INSULIN ASPART 100 UNITS/ML 3 ML PEN SC SCH ×2 (18:15→21:32)
--- NOTE | 2020-01-25 20:06 | Electrocardiogram Report ---
Test Reason : Blood Pressure : / mmHG Vent. Rate : 121 BPM Atrial Rate : 138 BPM P-R Int : 000 ms QRS Dur : 072 ms QT Int : 322 ms P-R-T Axes : 000 -04 014 degrees QTc Int : 457 ms Atrial fibrillation with rapid ventricular response with premature ventricular or aberrantly conducte d complexes Nonspecific ST abnormality Abnormal ECG When compared with ECG of 29-NOV-2018 09:33, Vent. rate has increased BY 42 BPM Confirmed by Noman Leon ([id number]) on 01/25/2020 8:06:20 PM Referred By: Confirmed By:Noman Leon
[2020-01-25] MEDS: RIVAROXABAN 20 MG TAB PO SCH (20:34)
[2020-01-26] MEDS: OMEGA-3 (PURIFIED FISH OIL) 1 GM CAP PO SCH (07:43)
[2020-01-26] MEDS: DOCUSATE SODIUM 100 MG CAP PO SCH (07:43)
[2020-01-26] MEDS: hydroCHLOROthiazide 25 MG TAB PO SCH (07:44)
[2020-01-26] MEDS: METOPROLOL TARTRATE 25 MG TAB PO SCH (07:44)
[2020-01-26] MEDS: lisinopriL 10 MG TAB PO SCH (07:44)
[2020-01-26 07:56] LABS: Hematocrit (blood only) 39.4 % (37-47); Hemoglobin 12.6 g/dL (12.0-16.0); Mean Corpuscular Hemoglobin 26.4 pg (25-34); Mean Corpuscular Volume 82.4 fL (80-100); Platelet Count 357 K/uL (130-400); RDW Coefficient of Variation 14.8 % (11.5-14.5); RDW Standard Deviation 44.8 fL (36.4-46.3); Red Blood Count 4.78 M/uL (4.2-5.4); White Blood Count 8.27 K/uL (4.8-10.8)
[2020-01-26 08:01] LABS: Appearance Urine Cloudy (Clear); Bilirubin Urine Negative (Negative); Blood Urine Negative (Negative); Color Urine Dark Yellow; Epithelial Cell Urine Auto >30 /lpf (0-5); Glucose Urine UA Negative (Negative); Ketones Urine Trace (Negative); Leukocyte Esterase Urine 3+ (Negative); Nitrite Urine Negative (Negative); Protein Urine Trace (Negative); Specific Gravity Urine 1.027 (1.000-1.030); Urobilinogen Urine Negative (Negative); WBC Urine Automated >30 /hpf (0-5)
[2020-01-26 08:20] LABS: Estimated Average Glucose 126 mg/dl
[2020-01-26 08:25] LABS: BUN Creatinine Ratio 21.7 (10-20); Blood Urea Nitrogen 21 mg/dl (7-18); Calcium 9.4 mg/dl (8.5-10.1); Carbon Dioxide 25 mmol/L (21-32); Chloride 106 mmol/L (98-107); Creatinine Clr Calc Pharmacy 65.5 ml/min; Est GFR (African American) 64.6; Est GFR (Non-African American) 55.7; Glucose 116 mg/dl (70-99); Potassium 3.7 mmol/L (3.5-5.1); Sodium 139 mmol/L (136-145)
[2020-01-26 08:30] LABS: Troponin I < 0.015 ng/ml (0-0.045)
[2020-01-26] MEDS ORDERED: NON-FORMULARY MEDICATION (Potassium Gluconate 99 MG) PO SCH (09:00)
[2020-01-26] MEDS: CALCIUM 600MG + VIT D 400 IU TAB PO SCH (09:11)
[2020-01-26] MEDS: INSULIN ASPART 100 UNITS/ML 3 ML PEN SC SCH ×4 (09:41→20:42)
[2020-01-26 09:48] LABS: Bacteria Urine Automated 1+ (Negative); Mucus Urine Present (None Prsent)
--- NOTE | 2020-01-26 17:48 | Hospitalist Progress Note ---
Date of Service January 26, 2020 Assessment & Plan (1) Weakness: Feels she is too weak to go home. - PT/OT/CM (2) Chest pain: Appears to be having 2 different pains which she finds hard to distinguish between them. - Serial troponins all negative. - Chest pain resolved by 01/25; possibly due to afib with RVR? (3) Atrial fibrillation with rapid ventricular response: Rate controlled after 5mg IV metoprolol given in ER and her usual metoprolol tatrate 25mg PO daily dose. She skipped the dose prior to her left carpal tunnel surgery, so this is why she was in RVR. - Continue anticoagulation with Xarelto 20mg PO daily - Continue home metoprolol tartrate (unclear why she is on this once a day, but cardiology notes include this dosing, so will continue). (4) Type 2 diabetes mellitus: HbA1C 6.1 in October. 6.0% this admission. - T2DM diet - Novolog for correction only, hold metformin (5) Hypertension: BP 115/75 today. - Continue her routine medications HCTZ, metoprolol, lisinopril. Admission and Anticipated Discharge Date Admission Date: January 25, 2020 Subjective Has sore shoulders today. Would like to go to [facility] for rehab as she feels she has been weak. Reports no fevers/chills, chest pain, shortness of breath, abdominal pain, nausea, or vomiting. Physical Exam Constitutional: WD/WN, vitals as above Eyes: EOM intact bilaterally; no conjunctival abnormality ENMT: external ear and nose normal, oropharynx normal Neck: trachea midline, no thyromegaly normal visual inspection Respiratory: normal respiratory effort, lungs clear to auscultation no respiratory distress Cardiovascular: Rate/Rhythm: regular rate and + irregularly irregular Heart Sounds: normal S1 and normal S2 Extremities: no edema Gastrointestinal (Abdomen): Inspection/Auscultation: abdomen normal to inspection; abdomen not distended Musculoskeletal: no cyanosis or clubbing, extremities motor strength 5/5 Skin: no rashes, warm and dry Neurologic: moves all extremities and awake Psychiatric: Orientation: alert, oriented to person and cooperative Results & Data Results & Data ([facility]) Vital Signs (Past 12 Hours) Vital Signs Temp Pulse Pulse Resp BP BP Pulse Ox 01/26/20 16:18 89 01/26/20 16:17 36.6 C 91 H 20 114/73 96 01/26/20 11:43 36.7 C 91 H 20 98/68 L 97 01/26/20 07:20 88 01/26/20 07:18 36.7 C 91 H 20 125/86 97 PG Care Time/CCT Total # of Minutes Spent Total Time Spent with Patient: Total time spent is greater than 50% in coordination of care (as documented) at patient's floor/unit and/or counseling patient: Coding Level of Care Code 13394 Subseq Hosp Care Lvl 3 Diagnoses Weakness R53.1 Chest pain R07.9 Atrial fibrillation with rapid ventricular response I48.91 Type 2 diabetes mellitus E11.9 Diabetes mellitus long term acute care registered nurse insulin use: without long term acute care registered nurse use Diabetes mellitus complication status: without complication Hypertension I10 Hypertension type: unspecified (1) Type 2 diabetes mellitus Diabetes mellitus retirement insulin use: without long term acute care registered nurse use Diabetes mellitus complication status: without complication Qualified Code(s): E11.9 - Type 2 diabetes mellitus without complications (2) Hypertension Hypertension type: unspecified Qualified Code(s): I10 - Essential (primary) hypertension
[2020-01-26] MEDS: RIVAROXABAN 20 MG TAB PO SCH (20:41)
[2020-01-27] MEDS: METOPROLOL TARTRATE 25 MG TAB PO SCH (07:45)
[2020-01-27] MEDS: CALCIUM 600MG + VIT D 400 IU TAB PO SCH (07:46)
[2020-01-27] MEDS: lisinopriL 10 MG TAB PO SCH (07:46)
[2020-01-27] MEDS: OMEGA-3 (PURIFIED FISH OIL) 1 GM CAP PO SCH (07:46)
[2020-01-27] MEDS: hydroCHLOROthiazide 25 MG TAB PO SCH (07:46)
[2020-01-27] MEDS: DOCUSATE SODIUM 100 MG CAP PO SCH (07:47)
[2020-01-27] MEDS: INSULIN ASPART 100 UNITS/ML 3 ML PEN SC SCH ×4 (09:05→20:47)
[2020-01-27] MEDS ORDERED: MICONAZOLE NITRATE POWDER 43 GM EXT PRN (14:20)
[2020-01-27] MEDS: RIVAROXABAN 20 MG TAB PO SCH (20:12)
--- NOTE | 2020-01-27 22:15 | Hospitalist Progress Note ---
Date of Service January 27, 2020 Assessment & Plan (1) Weakness: Feels she is too weak to go home. - PT/OT/CM May need placement. will discuss with case management in AM. (2) Chest pain: Appears to be having 2 different pains which she finds hard to distinguish between them. - Serial troponins all negative. - Chest pain resolved by 01/25; possibly due to afib with RVR? (3) Atrial fibrillation with rapid ventricular response: Rate controlled after 5mg IV metoprolol given in ER and her usual metoprolol tatrate 25mg PO daily dose. She skipped the dose prior to her left carpal tunnel surgery, so this is why she was in RVR. - Continue anticoagulation with Xarelto 20mg PO daily - Continue home metoprolol tartrate (unclear why she is on this once a day, but cardiology notes include this dosing, so will continue). (4) Type 2 diabetes mellitus: HbA1C 6.1 in October. 6.0% this admission. - T2DM diet - Novolog for correction only, hold metformin (5) Hypertension: BP at goal. - Continue her routine medications HCTZ, metoprolol, lisinopril. Admission and Anticipated Discharge Date Admission Date: January 26, 2020 Subjective Patient reports no new symptoms. She reports feeling close to baseline Review of Systems Review of Systems: All systems reviewed & are unremarkable except as noted in HPI & below Physical Exam Physical Exam: Constitutional: WD/WN, vitals as above Eyes: EOM intact bilaterally; no conjunctival abnormality ENMT: external ear and nose normal, oropharynx normal Neck: trachea midline, no thyromegaly normal visual inspection Respiratory: normal respiratory effort, lungs clear to auscultation no respiratory distress Cardiovascular: Rate/Rhythm: regular rate and + irregularly irregular Heart Sounds: normal S1 and normal S2 Extremities: no edema Gastrointestinal (Abdomen): Inspection/Auscultation: abdomen normal to inspection; abdomen not distended Musculoskeletal: no cyanosis or clubbing, extremities motor strength 5/5 Skin: no rashes, warm and dry Neurologic: moves all extremities and awake Psychiatric: Orientation: alert, oriented to person and cooperative Results & Data Results & Data ([facility]) Vital Signs (Past 12 Hours) Vital Signs Temp Pulse Resp BP Pulse Ox 01/27/20 19:06 36.5 C 108 H 18 136/94 95 01/27/20 15:51 36.9 C 111 H 16 102/70 97 01/27/20 11:29 36.6 C 79 18 107/76 97 PG Care Time/CCT Total # of Minutes Spent Total Time Spent with Patient: Total time spent is greater than 50% in coordination of care (as documented) at patient's floor/unit and/or counseling patient: Coding Level of Care Code 66516 Subseq Hosp Care Lvl 2 Diagnoses Weakness R53.1 Chest pain R07.9 Atrial fibrillation with rapid ventricular response I48.91 Type 2 diabetes mellitus E11.9 Diabetes mellitus complication status: without complication 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
[2020-01-28] MEDS ORDERED: POLYETHYLENE (MIRALAX) 17 GM PACK PO PRN (00:35)
[2020-01-28] MEDS: INSULIN ASPART 100 UNITS/ML 3 ML PEN SC SCH ×2 (07:56→11:40)
[2020-01-28] MEDS: METOPROLOL TARTRATE 25 MG TAB PO SCH (08:22)
[2020-01-28] MEDS: CALCIUM 600MG + VIT D 400 IU TAB PO SCH (08:22)
[2020-01-28] MEDS: lisinopriL 10 MG TAB PO SCH (08:22)
[2020-01-28] MEDS: DOCUSATE SODIUM 100 MG CAP PO SCH (08:23)
[2020-01-28] MEDS: hydroCHLOROthiazide 25 MG TAB PO SCH (08:23)
[2020-01-28] MEDS: OMEGA-3 (PURIFIED FISH OIL) 1 GM CAP PO SCH (08:23)
--- NOTE | 2020-02-04 21:11 | Discharge Summary ---
Date of Service January 28, 2020 Admission HPI Per Admitting Provider Cecilia Salazar is a 75 year old female who presents to the ER with rapid heart rate and chest pain. She had a planned carpal tunnel surgery today therefore was told to not take her usual metoprolol. On arrival her anethesiologist noted she was in atrial fibrillation with a rapid ventricular rate while she was also complaining of chest pain therefore she was sent to the ER for further workup. Her chest pain has actually been going on since she woke up this morning. She describes it as a sharp, burning sensation in centre of her chest. No radiation. Severity 10/10 at worst when she tried to get into her truck. Non-exertional. Becomes more of a sharp pain when she moves in certain ways. In addition she has been having pain on and between her shoulders across her back. This has been exacebated and intermittent comes on as a sharp pain for many months but appears to be worse in the last week. This pain is reproducible on palpation and is correlated to her lack of mobility recently. Principal Diagnosis weakness Discharge Exam Constitutional: WD/WN, vitals as above Eyes: EOM intact bilaterally; no conjunctival abnormality ENMT: external ear and nose normal, oropharynx normal Neck: trachea midline, no thyromegaly normal visual inspection Respiratory: normal respiratory effort, lungs clear to auscultation no respiratory distress Cardiovascular: Rate/Rhythm: regular rate and + irregularly irregular Heart Sounds: normal S1 and normal S2 Extremities: no edema Gastrointestinal (Abdomen): Inspection/Auscultation: abdomen normal to inspection; abdomen not distended Musculoskeletal: no cyanosis or clubbing, extremities motor strength 5/5 Skin: no rashes, warm and dry Neurologic: moves all extremities and awake Psychiatric: Orientation: alert, oriented to person and cooperative Discharge Data Allergies Allergy/AdvReac Type Severity Reaction Status Date / Time Iodinated Contrast Media Allergy Intermediate RASH ON Verified 01/25/20 08:49 FOOT, SWELLING Sulfa (Sulfonamide Allergy Unknown RASH/ITCHIN Verified 01/25/20 08:49 Antibiotics) G sulfamethoxazole Allergy Unknown RASH/ITCHIN Verified 01/25/20 08:49 G Consultations 01/25/20 10:18 ED Decision to Admit Stat Hospital Course (1) Weakness: Feels she is too weak to go home. - PT/OT/CM discharged to rehab facility (2) Chest pain: Appears to be having 2 different pains which she finds hard to distinguish between them. - Serial troponins all negative. - Chest pain resolved by 01/25; possibly due to afib with RVR? heart rate better controlled on day of discharge (3) Atrial fibrillation with rapid ventricular response: Rate controlled after 5mg IV metoprolol given in ER and her usual metoprolol tatrate 25mg PO daily dose. She skipped the dose prior to her left carpal tunnel surgery, so this is why she was in RVR. - Continue anticoagulation with Xarelto 20mg PO daily - switched to metoprolol succinate (4) Type 2 diabetes mellitus: HbA1C 6.1 in October. 6.0% this admission. - T2DM diet - Novolog for correction only, hold metformin (5) Hypertension: BP at goal. - Continue her routine medications HCTZ, metoprolol, lisinopril. Total Time Total Time Spent Total Time Spent (In Minutes): 32 Discharge Plan Discharge Items Patient Disposition: Transfer Inpatient Rehab Fac Reason For Visit: AFIB W/RVR Discharge Diagnosis: A fib w RVR Activity: Resume your previous activity Non-emergency contact: Primary Care Provider Call non-emergency contact if: you have any medication questions Follow-up/Referrals: Dennis Alvarez MD [Primary Care Provider] - Diet: Carb Consistent or DM2 and Heart Healthy Addtl Attending Provider Instructions: Call your Primary Care doctor if any of the following symptoms or problems start or get worse: * Shortness of breath or difficulty breathing * Wake up at night short of breath * Chest pain * Cough * Swelling of your hands, feet, or legs * More fatigued or tired with your normal activity * Palpitations - sudden fast heart beats WEIGHT * Weigh yourself every morning after using the bathroom. * Use the same scale. * Wear the same amount of clothing. * Write your weight down on a chart. * Call your Primary Care doctor if you gain more than 2-3 pounds in 1-2 days. MEDICATIONS * Use this discharge instruction sheet for medication instructions. * Take your medications at the time your doctor ordered. * Do not skip a dose of your medicines. * If you miss a dose of medicine, take it as soon as possible, but DO NOT DOUBLE A DOSE. * Read your medicine information when you get home. * Know all of the side effects of your medicine. If in doubt, ask your pharmacist * Call your Primary Care doctor's office if you have any side effects. * Be sure all of your doctors know what medicine and herbs you take (including cold, flu, and herbal medicine). Take the following with you to your follow-up doctor appointments: * Weight Chart * Medication List * List of questions Do not drink excessive alcohol, beer or wine. Pending Studies at Discharge: No Stand-Alone Forms: My [facility] Skilled Items Patient informed of condition?: No DNR: No Discharge Level of Care: Skilled Communicable Disease: No Discharge Prognosis: Stable Lines: None Urinary Catheter: No Medications and DC Order Prescriptions: New metoprolol succinate 25 mg tablet extended release 24 hr 25 mg PO PM Qty: 30 RF: 0 Continued Xarelto 20 mg tablet 20 mg PO DAILY Qty: 90 RF: 3 hydrochlorothiazide 25 mg tablet 25 mg PO QAM Qty: 90 RF: 3 lisinopril 10 mg tablet 10 mg PO QAM Qty: 90 RF: 3 docusate sodium 100 mg capsule 100 mg PO QAM RF: 0 (DME) CPAP Machine Misc See Dose Instructions .ROUTE .MEDSUPPLY Qty: 1 RF: 0 calcium carbonate-vitamin D3 [Calcium 600 + D(3)] 600 mg(1,500mg) -400 unit Tablet 1 tab PO DAILY RF: 0 potassium gluconate 595 mg (99 mg) Tablet 99 mg PO DAILY RF: 0 Nuretin 500-100 mg Capsule 2 cap PO DAILY RF: 0 metformin 500 mg tablet extended release 24 hr 500 mg PO PM RF: 0 Discontinued metoprolol tartrate 25 mg tablet 25 mg PO QAM Qty: 90 RF: 3 Discharge Orders: Discharge Order (Routine); Ordered 01/28/20 Ordered By: Gurinder Rivera/Other Patient Handouts: Managing Type 2 Diabetes Admission Data Admit Date/Time: 01/26/20 17:49 Attending Provider: Gurinder Spears Admit Provider: Bg Lam Primary Care Provider: Dennis Alvarez Other Providers: Bg Lam ; [facility] Other Interventions: Discharge Summary Assessment (RN) Last Done: 01/28/20 13:09 Coding Level of Care Code D/C Day Management >30 mins Diagnoses Weakness R53.1 Chest pain R07.9 Atrial fibrillation with rapid ventricular response I48.91 Type 2 diabetes mellitus E11.9 Diabetes mellitus intermediate designer insulin use: without nursing home use Diabetes mellitus complication status: without complication Hypertension I10 Hypertension type: unspecified Time Spent (min) 32
== END 2020-01-28 13:12 | DRG 309 ==
LOC: ED 07:41 → 2W 07:41 → SUATTDRO 11:06 → 2W 12:11 → SUATTDRO 01-26 17:49

== ENCOUNTER 2020-11-11 05:37 | Inpatient (IN) ==
--- NOTE | 2020-11-01 08:13 | PAT Medication Instructions ---
Medication Instructions Date of Service November 01, 2020 Home Medications Medication Instructions Recorded CPAP Machine #1 ea 10/25/18 rivaroxaban 20 mg tablet 20 mg PO DAILY #90 tab 05/07/20 prednisone 20 mg tablet 20 mg PO DAILY #90 tab 07/17/20 hydrochlorothiazide 25 mg tablet 25 mg PO QAM #90 tab 08/01/20 lisinopril 10 mg tablet 10 mg PO QAM #90 tab 08/01/20 metformin 500 mg tablet,extended 500 mg PO DAILY #90 tab 08/06/20 release 24 hr prednisone 5 mg tablet 5 mg PO DAILY #30 tab 09/23/20 amiodarone 200 mg tablet 200 mg PO DAILY #90 tab 10/09/20 prednisone 10 mg tablet 10 mg PO DAILY #90 tab 10/31/20 calcium carbonate-vitamin D3 [Calcium 600 + D(3)] 1 tab PO QAM potassium gluconate 99 mg PO QAM docusate sodium 100 mg capsule 100 mg PO QAM rivaroxaban 20 mg tablet 20 mg PO DAILY acetaminophen 500 mg tablet 500 - 1,000 mg PO Q6H PRN prednisone 20 mg tablet 20 mg PO DAILY hydrochlorothiazide 25 mg tablet 25 mg PO QAM lisinopril 10 mg tablet 10 mg PO QAM metformin 500 mg tablet,extended release 24 hr 500 mg PO DAILY prednisone 5 mg tablet 5 mg PO DAILY amiodarone 200 mg tablet 200 mg PO DAILY prednisone 10 mg tablet 10 mg PO DAILY ASK your prescriber and surgeon rivaroxaban 20 mg tablet 20 mg PO DAILY DO NOT take the morning of surgery calcium carbonate-vitamin D3 [Calcium 600 + D(3)] 1 tab PO QAM potassium gluconate 99 mg PO QAM docusate sodium 100 mg capsule 100 mg PO QAM hydrochlorothiazide 25 mg tablet 25 mg PO QAM lisinopril 10 mg tablet 10 mg PO QAM metformin 500 mg tablet,extended release 24 hr 500 mg PO DAILY Take morning of surgery With a small sip of water, OTHERWISE NOTHING TO EAT OR DRINK AFTER MIDNIGHT: acetaminophen 500 mg tablet 500 - 1,000 mg PO Q6H PRN (okay to take up to 4 hours prior to surgery if needed) prednisone 20 mg tablet 20 mg PO DAILY prednisone 5 mg tablet 5 mg PO DAILY amiodarone 200 mg tablet 200 mg PO DAILY prednisone 10 mg tablet 10 mg PO DAILY Take evening before surgery acetaminophen 500 mg tablet 500 - 1,000 mg PO Q6H PRN (if needed) Other Notes If you have any questions please call us at [phone] or [phone] or [phone] or [phone]
--- NOTE | 2020-11-01 08:25 | Anesthesiology Consultation ---
Date of Service November 01, 2020 Assessment & Plan (1) Encounter for pre-operative examination: - COVID screening: Per assessment on 11/01: Travel screen negative, no known COVID-19 positive contacts or current COVID-19 related symptoms. Patient vaccinated. Advised patient to follow COVID precautions/avoid large crowds prior to surgery- Patient voiced understanding. Surgeon arranging preop COVID testing. Awaiting results. - S/P scalp cysts excision (12/12/18): Grade view 1, MAC#3, ETT 7.5 at [facility] - Check BSG AM DOS - Xarelto instructions: patient made aware that in order for spinal anesthesia, Xarelto needs to be held 72 hours/3 days prior to surgery. Patient voiced understanding/will check if okay with prescriber. - Difficult IV access (per patient): Pt states bad experience with IV starts in the past > requesting IV team start (OR made aware) Chart Review Chart Review: Acceptable Risk for Surgery (pending surgeon-ordered PCP and cardiology clearances) and Patient seen in Pre Admission Testing Teaching & Discussion Pre-Anesthesia Teaching/Discussion Notes: Instructed NPO after midnight before surgery,except medications with 15 cc of water. Medication instructions provided according to the PAT guidelines. History Surgery Operation Date: 11/11/20 14:20 Proposed Procedures p Right L3-L4 Laminectomy - Lazarus Styles DO Height/Weight Height: 5 ft 5 in Weight: 120.1 kg Allergies Allergy/AdvReac Type Severity Reaction Status Date / Time Iodinated Contrast Media Allergy Intermediate Foot rash, Verified 11/01/20 08:16 swelling Sulfa (Sulfonamide Allergy Mild Rash, Verified 11/01/20 08:16 Antibiotics) itching sulfamethoxazole Allergy Mild Rash, Verified 11/01/20 08:16 itching Medications Home Medications Medication Instructions Recorded Confirmed Last Taken CPAP Machine #1 ea 10/25/18 09/20/20 11/27/19 calcium carbonate-vitamin D3 1 tab PO QAM 01/25/20 10/31/20 01/24/20 [Calcium 600 + D(3)] potassium gluconate 99 mg PO QAM 01/25/20 10/31/20 01/24/20 docusate sodium 100 mg capsule 100 mg PO QAM cap 02/13/20 10/31/20 Unknown rivaroxaban 20 mg tablet 20 mg PO DAILY #90 tab 12/29/20 06/24/21 Unknown acetaminophen 500 mg tablet 500 - 1,000 mg PO Q6H PRN 05/16/20 10/31/20 Unknown prednisone 20 mg tablet 20 mg PO DAILY #90 tab 07/17/20 10/31/20 Unknown hydrochlorothiazide 25 mg tablet 25 mg PO QAM #90 tab 08/01/20 10/31/20 Unknown lisinopril 10 mg tablet 10 mg PO QAM #90 tab 08/01/20 10/31/20 Unknown metformin 500 mg tablet,extended 500 mg PO DAILY #90 tab 08/06/20 10/31/20 Unknown release 24 hr prednisone 5 mg tablet 5 mg PO DAILY #30 tab 09/23/20 Unknown amiodarone 200 mg tablet 200 mg PO DAILY #90 tab 10/09/20 10/31/20 Unknown prednisone 10 mg tablet 10 mg PO DAILY #90 tab 10/31/20 Unknown Past Medical History Medical History Chronic shoulder pain Pain started after [facility] > per patient, PCP started her on prednisone for this which she they have been trying to slowly taper off of Diabetes mellitus, type 2 NIDDM Glaucoma Hypertension Morbid obesity Paroxysmal atrial fibrillation on Xarelto PMR (polymyalgia rheumatica) Sleep apnea CPAP Exercise / Class Metabolic Activity III < 4 Walking/Shop/Light housework (uses cane PRN) Past Family History Family History Sister Breast cancer Father Heart disease Other No family history of adverse response to anesthesia Denies family history of Ovarian cancer Prostate cancer Myocardial infarction Lung cancer Colorectal cancer Past Surgical History Surgical History Cyst Scalp cysts excision (12/12/18): Grade view 1, MAC#3, ETT 7.5 at [facility] H/O colonoscopy History of ankle surgery Right History of carpal tunnel release Right History of hernia repair Laparoscopic hernia x2 History of knee replacement procedure of right knee R/L History of left knee replacement + subsequent Left knee I&D poly exchange History of lumpectomy of left breast benign History of revision of total knee arthroplasty R/L History of surgical procedure on eye proper using laser History of tooth extraction Hx of hysterectomy Hx of left cataract extraction Hx of right cataract extraction Past Anesthesia History No Family Hx of Anesthesia Complications History of PONV History of PONV and Hx of Motion Sickness (Mild ) Social History Smoking Status: Former smoker tobacco type: cigarettes Do You Dip or Chew Tobacco: No Smoking End Date: Quit at age 29 Hx Alcohol Use: No Hx Substance Use: No substance use type: does not use Review of Systems Patient denies chest pain, shortness of breath, fever, chills, cough, wheezing, palpitations. Physical Exam Vital Signs VITALS BP 121/80 P 89 TEMP 97.8 SP02 98%RA RESP 16 PHYSICAL Mildly decreased cervical extension range of motion. Full TMJ range of motion. TMD 3 finger breaths Mallampati Score 3 Dentition: full upper plate, edentulous Lungs: clear throughout to auscultation Cardiac: regular rate and rhythm, no murmurs noted Spine: kyphosis vs cervical fat pad Carotid arteries: negative bruit Extremities: no edema Thick neck Lab Results Anesthesia Preop Results Results Anesthesia Widget: WBC 13.87 K/uL (4.8-10.8) H 11/01/20 Hgb 13.4 g/dL (12.0-16.0) 11/01/20 Hct 40.8 % (37-47) 11/01/20 Plt 308 K/uL (130-400) 11/01/20 Na 138 mmol/L (136-145) 11/01/20 K 3.6 mmol/L (3.5-5.1) 11/01/20 Cl 102 mmol/L (98-107) 11/01/20 CO2 31 mmol/L (21-32) 11/01/20 BUN 36 mg/dl (7-18) H 11/01/20 Creat 1.12 mg/dl (0.6-1.2) 11/01/20 Glucose Level 158 mg/dl (70-99) H 11/01/20 PT 14.4 Seconds (9.0-12.0) H 11/01/20 PTT 39.3 Seconds (21.0-31.0) H 11/01/20 INR 1.5 (0.9-1.1) H 11/01/20 HA1c 5.8 % (4.5-5.6) H 09/20/20 Urine Color Dark Yellow 11/01/20 Urine Appearance Clear (Clear) 11/01/20 Urine pH 5.0 (4.5-7.5) 11/01/20 Urine Specific [place] 1.029 (1.000-1.030) 11/01/20 Urine Protein Negative (Negative) 11/01/20 Urine Glucose (UA) Negative (Negative) 11/01/20 Urine Ketones Trace (Negative) H 11/01/20 Urine Blood Negative (Negative) 11/01/20 Urine Nitrite Negative (Negative) 11/01/20 Urine Bilirubin 1+ (Negative) H 11/01/20 Urine Urobilinogen Negative (Negative) 11/01/20 Urine Leukocyte Esterase Trace (Negative) H 11/01/20 Urine WBC (Auto) 1-5 /hpf (0-5) 11/01/20 Urine RBC (Auto) 0-4 /hpf (0-4) 11/01/20 Urine Hyaline Casts (Auto) 1-5 /lpf (0-5) 11/01/20 Urine Epithelial Cells (Auto) >30 /lpf (0-5) H 11/01/20 Urine Bacteria (Auto) Negative (Negative) 11/01/20 Blood Type A Positive 11/01/20 Antibody Screen NEGATIVE 11/01/20 Lab Comments: Mild coag elevation- pt taking Xarelto > will be seeing PCP for preop evaluation prior to surgery. Elevated WBC in setting of chronic prednisone use (surgeon's office made aware) Testing Laboratory Results 09/20/20 HGBA1C 5.8% Electrocardiogram Date: 11/01/20 Findings: + NSR @ (79) Chest X-Ray Date: 01/25/20 FINDINGS: The heart is the upper limits of normal in size. There is no failure. There is no focal pulmonary consolidation. There are no pleural effusions. There are subsegmental atelectatic changes at the left lung base. Arthritic changes are present within the shoulders. IMPRESSION: No active disease in the chest. Stress Test Date: 08/13/17 Type: DSE Negative stress ECHO/EKG for ischemia at 102% MPHR. LVEF 55-60%. No significant valvular disease.
[2020-11-11] MEDS ORDERED: ACETAMINOPHEN 500 MG TAB PO SCH (06:00)
[2020-11-11] MEDS ORDERED: CeleBREX 200 MG CAP PO SCH (06:00)
[2020-11-11] MEDS ORDERED: GABAPENTIN 300 MG CAP PO SCH (06:00)
[2020-11-11] MEDS ORDERED: LR 15ML/HR IV SCH (06:00)
[2020-11-11] MEDS ORDERED: BUPIVACAINE/EPINEPHRINE 0.5% MPF 1:200,000 30 ML VIAL ONE (06:59)
[2020-11-11] MEDS ORDERED: fentaNYL citrate 100 MCG/2 ML VIAL ONE (06:59)
[2020-11-11] MEDS ORDERED: MIDAZOLAM HCL 1 MG/ML 2ML VIAL ONE (06:59)
[2020-11-11] MEDS ORDERED: ePHEDrine sulfate 50 MG/ML AMP IV PRN (07:25)
[2020-11-11] MEDS ORDERED: ONDANSETRON INJ 2 MG/ML 2 ML VIAL IV PRN ×2 (07:25→10:47)
[2020-11-11] MEDS ORDERED: ATROPINE SULFATE 0.1 MG/ML 10ML SYR IV PRN (07:25)
[2020-11-11] MEDS ORDERED: DEXAMETHASONE SOD INJ 4 MG/ML VIAL ONE (07:28)
[2020-11-11] MEDS ORDERED: PHENYLEPHRINE 100MCG/ML 5ML SYR ONE (07:28)
[2020-11-11] MEDS ORDERED: PROPOFOL IV EMULSION 10 MG/ML 20 ML VIAL IV ONE (07:28)
[2020-11-11] MEDS ORDERED: NEOSTIGMINE METHYLSULFATE 1 MG/ML 10ML VIAL ONE (07:28)
[2020-11-11] MEDS ORDERED: GLYCOPYRROLATE 0.2 MG/ML VIAL ONE (07:28)
[2020-11-11] MEDS ORDERED: LIDOCAINE 2% 2 ML VIAL/AMP(20MG/ML) INFIL ONE (07:28)
[2020-11-11] MEDS ORDERED: ONDANSETRON INJ 2 MG/ML 2 ML VIAL ONE (07:28)
[2020-11-11] MEDS ORDERED: LARYING-O-JET KIT (LTA) ONE (07:28)
[2020-11-11] MEDS ORDERED: ePHEDrine sulfate 50 MG/ML SYR ONE (07:28)
[2020-11-11] MEDS ORDERED: ROCURONIUM BROMIDE 10 MG/ML 5 ML VIAL IV ONE (07:28)
--- NOTE | 2020-11-11 07:34 | History & Physical Bridge Note ---
Date of Service November 11, 2020 History & Physical Bridge Note I have examined the patient, reviewed the History & Physical and in the interval since the performance of the History & Physical I have noted the following changes of clinical significance: no changes noted
--- NOTE | 2020-11-11 07:37 | History & Physical Report ---
Date of Service November 11, 2020 Assessment & Plan (1) Lumbar disc herniation with radiculopathy: Admission and Anticipated Discharge Date Admission Date: Right L3-L4 laminectomy History of Present Illness Chief Complaint: Back and leg pain Primary Care Provider: Dennis Alvarez MD This is a 74-year-old female has chronic persistent back and leg pain. Failing since course of nonoperative care is here for surgical invention. Allergies Allergy/AdvReac Type Severity Reaction Status Date / Time Iodinated Contrast Media Allergy Intermediate Foot rash, Verified 11/11/20 06:44 swelling Sulfa (Sulfonamide Allergy Mild Rash, Verified 11/11/20 06:44 Antibiotics) itching sulfamethoxazole Allergy Mild Rash, Verified 11/11/20 06:44 itching Home Medications Medication Instructions Recorded Confirmed Type CPAP Machine #1 ea 10/25/18 11/06/20 Rx calcium carbonate-vitamin D3 1 tab PO QAM 01/25/20 11/06/20 History [Calcium 600 + D(3)] potassium gluconate 99 mg PO QAM 01/25/20 11/06/20 History docusate sodium 100 mg capsule 100 mg PO QAM cap 02/13/20 11/06/20 History rivaroxaban 20 mg tablet 20 mg PO DAILY #90 tab 05/07/20 11/11/20 Rx acetaminophen 500 mg tablet 500 - 1,000 mg PO Q6H PRN 05/16/20 11/11/20 History hydrochlorothiazide 25 mg tablet 25 mg PO QAM #90 tab 08/01/20 11/06/20 Rx lisinopril 10 mg tablet 10 mg PO QAM #90 tab 08/01/20 11/11/20 Rx metformin 500 mg tablet,extended 500 mg PO DAILY #90 tab 08/06/20 11/11/20 Rx release 24 hr amiodarone 200 mg tablet 200 mg PO DAILY #90 tab 10/09/20 11/11/20 Rx prednisone 10 mg tablet 20 mg PO DAILY tab 11/04/20 11/11/20 History Past Med/Surg History Medical History Chronic shoulder pain Diabetes mellitus, type 2 Glaucoma Hypertension Morbid obesity Paroxysmal atrial fibrillation PMR (polymyalgia rheumatica) Sleep apnea Surgical History Cyst H/O colonoscopy History of ankle surgery History of carpal tunnel release History of hernia repair History of knee replacement procedure of right knee History of left knee replacement History of lumpectomy of left breast History of revision of total knee arthroplasty History of surgical procedure on eye proper using laser History of tooth extraction Hx of hysterectomy Hx of left cataract extraction Hx of right cataract extraction Family History Sister Breast cancer Father Heart disease Other No family history of adverse response to anesthesia Denies family history of Ovarian cancer Prostate cancer Myocardial infarction Lung cancer Colorectal cancer Social History Smoking Status: Former smoker Age Started Using Tobacco: 5; Age Quit Using Tobacco: 25; packs per day: 1; Years Smoked: 24; Smoking End Date: Quit at age 29; Second Hand Exposure: No; Do You Dip or Chew Tobacco: No; Tobacco Cessation Education Requested by Patient: No Hx Alcohol Use: No Hx Substance Use: No Preferred Language: Kinyarwanda Communication Ability: Effective Visual Impairment: Limited Hearing Ability: Normal Rating Specialist Required: No Beliefs That Will Affect Care: None marital status: Current Living Situation: Family current occupational status: retired How many Children do You have: 5 Feels Safe at Home: Yes Safety Concerns: Feels Safe At This Time Childhood Exposure to Second-Hand Smoke: Yes caffeine: Yes Dental Care, Regularly: No Physical Activity Frequency: Does not Exercise Seatbelt Use: always Sunscreen Use: No Assistive Devices: Cane, CPAP, Denture - Upper and Glasses Physical Exam Physical Exam: Patient is alert and oriented Heart regular rhythm Lungs clear to auscultation Results & Data ([facility]) Vital Signs (Past 12 Hours) Vital Signs Temp Pulse Resp BP Pulse Ox 11/11/20 06:59 36.8 C 86 20 173/84 H 96
[2020-11-11] MEDS ORDERED: FLOSEAL HEMOSTATIC MATRIX 10ML TOP ONE (09:02)
--- NOTE | 2020-11-11 09:06 | Operative Report ---
Post Operative Report Pre & Post Diagnosis Operation Date: 11/11/20 07:45 Pre-Op Diagnosis: Intervertebral Disc Disorders With Radiculopathy Post-Op Diagnosis: Intervertebral Disc Disorders With Radiculopathy I identified the patient and participated in the time-out.: Yes Procedure Operation Date: 11/11/20 07:45 Actual Procedures Lumbar laminotomy L3-L4 on the right with excision of herniated free fragment Surgeon Lazarus Styles, Hearing Consultant Huyen Rolon Estimated Blood Loss 50 Findings See Below Patient is 5 foot 5 weighing over 117 kg with a BMI in excess of 43. Patient's body habitus did contribute to significant technical difficulty and at least 50% increase to the operative time. Specimens None Indications This is a 75-year-old female presents with above-mentioned diagnosis after failing course of nonoperative care is here for the above-mentioned procedure. Description of Procedure Patient met with identified informed consent obtained. Patient was then taken to the operative suite underwent a patient placed in a prone position the [place] table top Lexa frame. All bony prominences well-padded eyes inspected to ensure no external pressure placed upon the. This point lumbar spine was prepped and draped in a sterile fashion. The assistance of fluoroscopy identified the L3-L4 disc base in the midline incision was created overlying this region. Sharp dissection with the assistance of Bovie cautery from down to and exposing the i nterlaminar space at L3-L4 on the right. Laminotomy was then performed including a medial facetectomies and remove the lateral aspect of ligamentum flavum to expose a compressed traversing nerve root. Several large fragments of free disc material identified and removed. The area was then copiously irrigated explored to ensure no damage to surrounding structures remaining bleeding. 10 round STARR drain was then inserted. Incision was closed with 1 Vicryl fascia 2-0 Vicryl subcutaneously and 4 Monocryl for final skin closure. Steri-Strip sterile dressings placed. Patient will continue PACU stable condition. Please note Huyen Rolon was present at the entire procedure and all the patient positioning complex portions of the surgery and final skin closure. I attest to the content of the Intraoperative Record and any orders documented therein. Any exceptions are noted below.
[2020-11-11] MEDS: fentaNYL citrate 100 MCG/2 ML VIAL IV PRN ×2 (09:46→09:56)
--- NOTE | 2020-11-11 10:14 | Anesthesiology Progress Note ---
Date of Service November 11, 2020 Anesthesia Post Procedure Vital Signs Vital Signs: Temp Pulse Pulse Resp BP BP Pulse Ox 11/11/20 10:05 96.8 F L 55 L 14 140/63 99 11/11/20 09:55 54 L 14 144/68 H 100 11/11/20 09:45 60 16 152/68 H 100 11/11/20 09:35 61 15 153/63 H 100 11/11/20 09:25 65 16 145/69 H 100 11/11/20 09:18 96.8 F L 60 16 160/82 H 99 11/11/20 06:59 98.2 F 86 20 173/84 H 96 Pain Intensity Lower Back: Pain Intensity: 4 Transfer of Care Handoff Completed per policy Notes Mental Status: alert / awake / arousable and participated in evaluation Patient Amnestic to Procedure: Yes Nausea / Vomiting: adequately controlled Pain: adequately controlled Airway Patency, RR, SpO2: stable & adequate BP & HR: stable & adequate Hydration State: stable & adequate Anesthetic Complications: no major complications apparent and Pt Satisfied with anesthetic care
[2020-11-11] MEDS: SODIUM CHLORIDE 0.9% 1000ML 1,000 ML IV SCH ×2 (10:25→20:30)
[2020-11-11] MEDS ORDERED: SOD PHOSPHATE/SOD BIPHOSPHATE ENEMA 132 ML BTL PR PRN (10:47)
[2020-11-11] MEDS ORDERED: ACETAMINOPHEN 500 MG TAB PO PRN (10:47)
[2020-11-11] MEDS ORDERED: METOCLOPRAMIDE HCL INJ 5 MG/ML 2 ML VIAL IV PRN (10:47)
[2020-11-11] MEDS ORDERED: FAMOTIDINE 20 MG TAB PO PRN (10:47)
[2020-11-11] MEDS ORDERED: LORazepam 0.5 MG/1 ML VIAL IV PRN (10:47)
[2020-11-11] MEDS ORDERED: diphenhydrAMINE Capsule 25 MG CAP PO PRN (10:47)
[2020-11-11] MEDS ORDERED: ONDANSETRON 4 MG OD TAB PO PRN (10:47)
[2020-11-11] MEDS ORDERED: LORazepam 0.5 MG TAB PO PRN (10:47)
[2020-11-11] MEDS ORDERED: NALOXONE HCL 0.4 MG/1 ML VIAL/CARP IV PRN (10:47)
[2020-11-11] MEDS ORDERED: PROMETHAZINE HCL 12.5 MG in SODIUM CHLORIDE 0.9% 50 ML IV PRN (10:47)
[2020-11-11] MEDS ORDERED: DO NOT ADMINISTER FLU VACCINE PRN (10:47)
[2020-11-11] MEDS ORDERED: hydrOXYzine HCl 25 MG TAB PO PRN (10:47)
[2020-11-11] MEDS ORDERED: DO NOT ADMINISTER PNEUMOCOCCAL VACCINE PRN (10:47)
[2020-11-11] MEDS ORDERED: MAGNESIUM HYDROXIDE SUSP 30 ML UDC PO PRN (10:47)
[2020-11-11] MEDS ORDERED: HYDROmorphone INJ 0.5 MG/0.5 ML SYR IV PRN (10:47)
[2020-11-11] MEDS ORDERED: HYDROmorphone INJ 1 MG/ML SYRINGE IV PRN (10:47)
[2020-11-11] MEDS ORDERED: traMADol HCL 50 MG TABLET PO PRN (10:47)
[2020-11-11] MEDS ORDERED: ACETAMINOPHEN 1,000 MG/100 ML VIAL IV PRN (10:47)
[2020-11-11] MEDS ORDERED: ALUMINUM/MAGNESIUM SUSP 30 ML UDC PO PRN (10:47)
[2020-11-11] MEDS ORDERED: oxyCODONE HCL IR 5 MG TAB (IMMEDIATE RELEASE) PO PRN (10:47)
[2020-11-11] MEDS ORDERED: COUGH DROP (SUGAR FREE) LOZ 24 LOZ/1 BOX BUCCAL ONE (10:48)
[2020-11-11] MEDS ORDERED: PHARMACY GLYCEMIC MGMT CONSULT PRN (10:51)
[2020-11-11] MEDS ORDERED: CARBOHYDRATES FOR HYPOGLYCEMIA PO PRN (11:15)
[2020-11-11] MEDS ORDERED: GLUCOSE 40% GEL 15 GM TUBE PO PRN (11:15)
[2020-11-11] MEDS ORDERED: GLUCOSE 10 TABS/TUBE PO PRN (11:15)
[2020-11-11] MEDS ORDERED: DEXTROSE 50% 50 ML SYRINGE IV PRN (11:15)
[2020-11-11] MEDS ORDERED: GLUCAGON FOR INJ 1 MG VIAL IM PRN (11:15)
--- NOTE | 2020-11-11 11:22 | Pharmacy Report ---
Pharmacy Glycemic Short Note 2 - Date of Service November 11, 2020 - Glycemic Short BSG Results (Last 24 hours): 11/11/20 11/11/20 05:53 09:22 POC Glucose 113 H 128 H OUTPATIENT ANTIDIABETIC REGIMEN: * Metformin XR 500 mg PO with evening meal * HbA1c = 5.8% (09/20/20) ASSESSMENT: * 75 yo F admitted postoperatively s/p L3-L4 Laminectomy. Pharmacy has been consulted to assist with inpatient glycemic management. Patient is well controlled type 2 diabetic as an outpatient on metformin monotherapy. She does not check her BSGs at home. * Preoperative BSG was 113 mg/dL while postoperative BSG was 128 mg/dL. She did receive 12 mg of IV dexamethasone perioperatively. She is chronically on prednisone 20 mg PO daily which is set to start tomorrow morning. * Will give a one time dose of NPH at 25 units (0.3 units/kg based on Adj.BW) with lunch * Will start Novolog based on actual BW and stress of 1-2. This may need loosened as steroids start to wear off. * Currently, no diet is ordered but spoke with RN who is going to put in a regular T2DM diet. If patient tolerates diet well, then may be able to transition onto Metformin with evening meal tomorrow. PLAN FOR INPATIENT GLYCEMIC CONTROL: * Hold outpatient oral diabetes medications * Basal insulin * NPH 25 units SC x 1 * Bolus insulin * NovoLog per scale ACHS or Q6hrs while NPO * Goal Range: Low 110 mg/dL - High 140 mg/dL * Correction Factor: 25 mg/dL/unit * Nutritional / Prandial insulin per carb ratio of 1 unit per 8 grams CHO consumed PLAN FOR DISCHARGE: * HbA1c was 5.8% in September 2020 which is at goal. Recommend continuing Metformin monotherapy upon patient discharge as long as she is not experiencing any hypoglycemia at home.
--- NOTE | 2020-11-11 11:29 | Fluoroscopy Report ---
FL spine 1V any level CLINICAL HISTORY: RT L3-L4 LAMI COMPARISON STUDY: None FLUOROSCOPY TIME: 10 seconds. NUMBER OF FLUOROSCOPIC IMAGES: 1 FINDINGS: Intraoperative fluoroscopic image presented for review shows orthopedic hardware projecting at the an atomical region of the lower lumbar spine. IMPRESSION: As above. ACT 112: Negative or not required by law. The above report was generated using voice recognition software. It may contain grammatical, syntax o r spelling errors. Electronically signed by: Nazia Hewitt DO 11/11/2020 11:27 AM
[2020-11-11] MEDS ORDERED: COUGH DROP (SUGAR FREE) LOZ 24 LOZ/1 BOX BUCCAL PRN (11:30)
[2020-11-11] MEDS ORDERED: NovoLIN-N (NPH) PER UNIT CHARGE SQ ONE (11:30)
--- NOTE | 2020-11-11 12:03 | Hospitalist Consultation ---
Date of Consultation November 11, 2020 Assessment & Plan (1) History of lumbar laminectomy: POD #0 from L3-L4 Laminectomy - ABX per primary surgical team - Chemical Prophylaxis per primary team, SCD's in place - STARR drain per primary service - PT/OT per primary service - Pain control per primary service- Narcan rescue is in place - Appropriate bowel regime in place (2) Atrial fibrillation: PAF- NSR preoperative and exam patient pulse and auscultation are regular rate and rhythm - ECG in morning - Continue Amiodarone - Can restart Xeralto when drain removed and hemostasis is proven (3) Hypertension: Controlled - Hold AUNG for 24-48 hours follow BMP - Continue HCTZ as long as euvolemic - Continue with postoperative IVF until tolerating PO well - Notify hospitalist if >180 (4) Diabetes mellitus, type 2: Metformin on hold - Pharmacy glycemic consult placed by primary service- follow as above - HBG A1C in september 11.8, with good control on Metformin as outpatient - SSI- CF 25 and carb ration 1:15- hypoglycemia protocol is in place (5) Obstructive sleep apnea: CPAP 12 from 2011 - Patient states she is able to tolerate it for about 1-3 hours per night secondary to her sleeping on her side and chronic shoulder pain - Ordered while in house, she did not want to bring her machine in from home - Reviewed the need for in house with increase in sedating/pain medications related to hypoventilation, hypoxia, and as possibilities (6) PMR (polymyalgia rheumatica): Continue with her prednisone - Tylenol - Continue home oral oxycodone - Tramadol PRN - (7) GERD (gastroesophageal reflux disease): Famotidine in place with - continue while in house and on steroids - She primarily uses Tylenol at home instead of NSAIDS (8) CKD (chronic kidney disease), stage III: Complication of Metabolic syndrome, DMII, HTN, Obesity, dyslipidemia - Continue hydration, achive Euovolemia - Minimal blood loss recorded postoperatively - Avoid nephrotoxic medications and if needed, minimize exposure time - Continue to follow renal function with daily BMP - Bladder scans ordered Supervising Physician Co-Signing Physician Notes Discussed with daughters practitioner, agree with his note above. Patient is status post L3-L4 lumbar laminectomy. Continue medications as noted above. PT/OT as ordered. DVT prophylaxis is ordered. Further care per primary service. We will continue to follow peripherally while patient remains here in the hospital. Thank you for the consult. History of Present Illness Reason for Consultation: Medical Management Requesting Physician: Dr. Lazarus Styles Attending Physician: Lazarus Styles, History of Present Illness 75 YOF with past medical history of HTN, HLD, PAF (on amiodarone and Xeralto), DMII, DAVY, PMR, bilateral knee replacement x2, carpal tunnel release right, GERD, weight loss(stress/decrease appetite). Patient was evaluated in her room, where she is briskly awake and pain controlled following a L3-L4 laminectomy for intervertebral disc disease with radiculopathy, performed by Dr. Styles. Patient reports last dose of her Xeralto was on [id number]. Patient has some nausea but she is tolerating water and ice chips at this time, she has a sore throat and some hoarseness following procedure, but her throat lozenges and ice are helping. Her chart and medications have been reviewed. Recommendations: Lisinopril held: can restart in 24-48 hours following procedure, will follow BP and renal function CPAP 12 CM H20 ordered, recommend using while napping and HS- reviewed this with patient as she will be under increase sedating medications Changed Carb ration to 1:15 from 1:8- Follow Blood glucose- she is currently with CF 25- may need adjusted with her nausea and history of decrease PO intake at home as well. Allergies Allergy/AdvReac Type Severity Reaction Status Date / Time Iodinated Contrast Media Allergy Intermediate Foot rash, Verified 11/11/20 06:44 swelling Sulfa (Sulfonamide Allergy Mild Rash, Verified 11/11/20 06:44 Antibiotics) itching sulfamethoxazole Allergy Mild Rash, Verified 11/11/20 06:44 itching Home Medications Medication Instructions Recorded Confirmed Type CPAP Machine #1 ea 10/25/18 11/06/20 Rx calcium carbonate-vitamin D3 1 tab PO QAM 01/25/20 11/06/20 History [Calcium 600 + D(3)] potassium gluconate 99 mg PO QAM 01/25/20 11/06/20 History docusate sodium 100 mg capsule 100 mg PO QAM cap 02/13/20 11/06/20 History rivaroxaban 20 mg tablet 20 mg PO DAILY #90 tab 05/07/20 11/11/20 Rx acetaminophen 500 mg tablet 500 - 1,000 mg PO Q6H PRN 05/16/20 11/11/20 History hydrochlorothiazide 25 mg tablet 25 mg PO QAM #90 tab 08/01/20 11/06/20 Rx lisinopril 10 mg tablet 10 mg PO QAM #90 tab 08/01/20 11/11/20 Rx metformin 500 mg tablet,extended 500 mg PO DAILY #90 tab 08/06/20 11/11/20 Rx release 24 hr amiodarone 200 mg tablet 200 mg PO DAILY #90 tab 10/09/20 11/11/20 Rx prednisone 10 mg tablet 20 mg PO DAILY tab 11/04/20 11/11/20 History oxycodone 5 mg PO Q6H PRN #20 tab 11/11/20 Rx tramadol 50 mg PO Q6H PRN #20 tab 11/11/20 Rx Patient History Medical History Chronic shoulder pain Pain started after CTR > per patient, PCP started her on prednisone for this which she they have been trying to slowly taper off of Diabetes mellitus, type 2 NIDDM Glaucoma Hypertension Morbid obesity Paroxysmal atrial fibrillation on Xarelto PMR (polymyalgia rheumatica) Sleep apnea CPAP Surgical History Cyst Scalp cysts excision (12/12/18): Grade view 1, MAC#3, ETT 7.5 at [facility] H/O colonoscopy History of ankle surgery Right History of carpal tunnel release Right History of hernia repair Laparoscopic hernia x2 History of knee replacement procedure of right knee R/L History of left knee replacement + subsequent Left knee I&D poly exchange History of lumpectomy of left breast benign History of revision of total knee arthroplasty R/L History of surgical procedure on eye proper using laser History of tooth extraction Hx of hysterectomy Hx of left cataract extraction Hx of right cataract extraction Family History Sister Breast cancer Father Heart disease Other No family history of adverse response to anesthesia Denies family history of Ovarian cancer Prostate cancer Myocardial infarction Lung cancer Colorectal cancer Social History (Reviewed 11/11/20 @ 12:11 by BARBARA Valadez Smoking Status: Former smoker Age Started Using Tobacco: 5; Age Quit Using Tobacco: 25; packs per day: 1; Years Smoked: 24; Smoking End Date: Quit at age 29; Second Hand Exposure: No; Do You Dip or Chew Tobacco: No; Tobacco Cessation Education Requested by Patient: No Hx Alcohol Use: No Hx Substance Use: No Preferred Language: Senegalese Communication Ability: Effective Visual Impairment: Limited Hearing Ability: Normal [employer] Required: No Beliefs That Will Affect Care: None marital status: Current Living Situation: Family current occupational status: retired How many Children do You have: 5 Feels Safe at Home: Yes Safety Concerns: Feels Safe At This Time Childhood Exposure to Second-Hand Smoke: Yes caffeine: Yes Dental Care, Regularly: No Physical Activity Frequency: Does not Exercise Seatbelt Use: always Sunscreen Use: No Assistive Devices: Cane, CPAP, Denture - Upper and Glasses Review of Systems Review of Systems: REVIEW OF SYSTEMS: Constitutional: No fever, sweats or chills Eyes: No diplopia, no worsening or blurred vision ENT: (+) sore throat, normal hearing, no trouble swallowing Respiratory: No cough, sputum, dyspnea at rest or on exertion Cardiovascular: No chest pain, tightness or palpitations Abdomen: No pain, nausea, vomiting, diarrhea or constipation Musculoskeletal: (+) chronic joint pain, feels comfortable at this time, NO calf pain, swelling Neurologic: (+) chronic radiculopathy with no acute changes, No weakness, numbness/tingling, or balance problems Psychiatric: No anxiety or depression Skin: No rash or itch Physical Exam Physical Exam: PHYSICAL EXAM: General: awake, alert, no apparent distress Head: Normocephalic, atraumatic ENT: PERRL, EOMI, no pharyngeal exudate, mucous membranes dry Neuro: AAO x 3, speech clear and appropriate, strength intact bilaterally 5/5, sensation intact and equal all extremities and dermatomes, she has some baseline numbness around her knee levels bilaterally Chest: equal rise and fall of the chest, no accessory muscle use, no heaves or thrills, Clear to auscultation, decreased in the bases secondary to body habitus, on room air, Cardiac: Regular rate and rhythm palpated and auscultated, skin warm dry, cap refill <3 seconds, peripheral pulses +2 no JVD, no murmur, no JVD, +1-2 edema lower extremities, patient states not worse GI: hypoactive bowel sound all 4 quadrants, soft, nontender to palpation, no rebound, guarding or tenderness : void pending Extremities/MSK: Incision dressing CDI, STARR drain intact with bulb suction, small amount of serous drainage, Normal inspection, no peripheral erythema, calfs nontender to palpation Psych: Normal mood and affect Skin: no rash or erythema Results & Data Results & Data ([facility]) Vital Signs (Past 12 Hours) Vital Signs Temp Pulse Pulse Pulse Resp BP BP 11/11/20 11:31 53 L 16 136/77 11/11/20 10:55 36.4 C L 51 L 18 134/85 11/11/20 10:25 36.6 C 57 L 16 156/69 H 11/11/20 10:15 36.4 C L 58 L 20 141/67 H 11/11/20 10:05 36.0 C L 55 L 14 140/63 11/11/20 09:55 54 L 14 144/68 H 11/11/20 09:45 60 16 152/68 H 11/11/20 09:35 61 15 153/63 H 11/11/20 09:25 65 16 145/69 H 11/11/20 09:18 36.0 C L 60 16 160/82 H 11/11/20 06:59 36.8 C 86 20 173/84 H Pulse Ox 11/11/20 11:31 95 11/11/20 10:55 98 11/11/20 10:25 99 11/11/20 10:15 98 11/11/20 10:05 99 11/11/20 09:55 100 11/11/20 09:45 100 11/11/20 09:35 100 11/11/20 09:25 100 11/11/20 09:18 99 11/11/20 06:59 96 Laboratory Results Abnormal lab results 11/11/20 11/11/20 11/11/20 Range/Units 05:53 09:22 11:53 POC Glucose 113 H 128 H 135 H (70-99) mg/dl Diagnostic Findings Spine X-Ray 11/11/20 07:45 FL spine 1V any level CLINICAL HISTORY: RT L3-L4 LAMI COMPARISON STUDY: None FLUOROSCOPY TIME: 10 seconds. NUMBER OF FLUOROSCOPIC IMAGES: 1 FINDINGS: Intraoperative fluoroscopic image presented for review shows orthopedic hardware projecting at the anatomical region of the lower lumbar spine. IMPRESSION: As above. ACT 112: Negative or not required by law. The above report was generated using voice recognition software. It may contain grammatical, syntax or spelling errors. Electronically signed by: Nazia Hewitt DO 11/11/2020 11:27 AM Medications Administered Home Medications CPAP Machine #1 ea 10/25/18 [Rx Confirmed 11/06/20] calcium carbonate-vitamin D3 [Calcium 600 + D(3)] 1 tab PO QAM 01/25/20 [History Confirmed 11/06/20] potassium gluconate 99 mg PO QAM 01/25/20 [History Confirmed 11/06/20] docusate sodium 100 mg capsule 100 mg PO QAM cap 02/13/20 [History Confirmed 11/06/20] rivaroxaban 20 mg tablet 20 mg PO DAILY #90 tab 05/07/20 [Rx Confirmed 11/11/20] acetaminophen 500 mg tablet 500 - 1,000 mg PO Q6H PRN 05/16/20 [History Confirmed 11/11/20] hydrochlorothiazide 25 mg tablet 25 mg PO QAM #90 tab 08/01/20 [Rx Confirmed 11/06/20] lisinopril 10 mg tablet 10 mg PO QAM #90 tab 08/01/20 [Rx Confirmed 11/11/20] metformin 500 mg tablet,extended release 24 hr 500 mg PO DAILY #90 tab 08/06/20 [Rx Confirmed 11/11/20] amiodarone 200 mg tablet 200 mg PO DAILY #90 tab 10/09/20 [Rx Confirmed 11/11/20] prednisone 10 mg tablet 20 mg PO DAILY tab 11/04/20 [History Confirmed 11/11/20] oxycodone 5 mg PO Q6H PRN #20 tab 11/11/20 [Rx] tramadol 50 mg PO Q6H PRN #20 tab 11/11/20 [Rx] Active Medications Acetaminophen (Acetaminophen 500 Mg Tab) 1,000 mg PO PREOP EMMANUEL Stop: 11/11/20 18:00 Last Admin: 11/11/20 06:49 Dose: Not Given Documented by: Acetaminophen (Acetaminophen 500 Mg Tab) 1,000 mg PO Q8H PRN PRN Reason: MILD Pain Scale 1,2,3 & Pre PT Stop: 12/11/20 10:46 Al Hydrox/Mg Hydrox/Simethicone (Aluminum/Magnesium Susp 30 Ml Udc) 30 ml PO Q6H PRN PRN Reason: Dyspepsia Stop: 12/11/20 10:46 Amiodarone HCl (Amiodarone 200 Mg Tab) 200 mg PO DAILY EMMANUEL Stop: 12/12/20 08:59 Bisacodyl (Bisacodyl 10 Mg Supp) 10 mg DE DAILY PRN PRN Reason: Constipation Stop: 12/13/20 07:59 Celecoxib (Celebrex 200 Mg Cap) 200 mg PO PREOP EMMANUEL Stop: 11/11/20 18:00 Last Admin: 11/11/20 06:49 Dose: 200 mg Documented by: Dextrose (Dextrose 50% 50 Ml Syringe) 25 - 50 ml IV UD PRN; Protocol PRN Reason: Hypoglycemia Protocol Stop: 12/11/20 11:14 Diphenhydramine HCl (Diphenhydramine Capsule 25 Mg Cap) 25 mg PO Q6H PRN PRN Reason: Allergic Rhinitis/Insomnia Stop: 12/11/20 10:46 Docusate Sodium (Docusate Sodium 100 Mg Cap) 100 mg PO QAM EMMANUEL Stop: 12/12/20 08:59 Famotidine (Famotidine 20 Mg Tab) 20 mg PO Q12H PRN PRN Reason: Dyspepsia Stop: 12/11/20 10:46 Gabapentin (Gabapentin 300 Mg Cap) 300 mg PO PREOP EMMANUEL Stop: 11/11/20 18:00 Last Admin: 11/11/20 06:49 Dose: 300 mg Documented by: Glucagon (Glucagon For Inj 1 Mg Vial) 1 mg IM UD PRN; Protocol PRN Reason: Hypoglycemia Protocol Stop: 12/11/20 11:14 Glucose (Glucose 40% Gel 15 Gm Tube) 15 - 30 gm PO UD PRN; Protocol PRN Reason: Hypoglycemia Protocol Stop: 12/11/20 11:14 Glucose (Glucose 10 Tabs/Tube) 4 - 8 tabs PO UD PRN; Protocol PRN Reason: Hypoglycemia Protocol Stop: 12/11/20 11:14 Hydrochlorothiazide (Hydrochlorothiazide 25 Mg Tab) 25 mg PO QAM EMMANUEL Stop: 12/12/20 08:59 Hydromorphone HCl (Hydromorphone Inj 0.5 Mg/0.5 Ml Syr) 0.5 mg IV Q3H PRN PRN Reason: MOD pain (scale 4-6) & Pre PT Stop: 11/25/20 10:46 Hydromorphone HCl (Hydromorphone Inj 1 Mg/Ml Syringe) 1 mg IV Q3H PRN PRN Reason: severe pain (scale 7-10) Stop: 11/25/20 10:46 Hydroxyzine HCl (Hydroxyzine Hcl 25 Mg Tab) 25 mg PO Q8H PRN PRN Reason: Anxiety Stop: 12/11/20 10:46 Lactated Ringer's (Lr) 1,000 mls @ 15 mls/hr IV .Q24H EMMANUEL Stop: 11/12/20 05:59 Last Infusion: 11/11/20 07:45 Dose: Infused Documented by: Cefazolin Sodium (Ancef 3000mg) 72.5 mls @ 130 mls/hr IV PREOP EMMANUEL; Protocol Stop: 11/11/20 18:00 Last Infusion: 11/11/20 11:32 Dose: Infused Documented by: Acetaminophen (Ofirmev) 1,000 mg in 100 mls @ 400 mls/hr IV Q8H PRN PRN Reason: Pain Rating 1-3 & Pre PT Stop: 11/12/20 09:08 Lorazepam (Ativan) 0.5 mg in 1 mls @ 1 mls/min IV Q8H PRN PRN Reason: Sedation/Anxiety Stop: 12/11/20 10:46 Cefazolin Sodium (Ancef 2000mg) 2,000 mg in 15 mls @ 3.75 mls/min IV Q8H EMMANUEL; Protocol Stop: 11/12/20 00:03 Sodium Chloride (Nss 1000ml) 1,000 mls @ 100 mls/hr IV .Q10H EMMANUEL Stop: 12/11/20 10:46 Last Admin: 11/11/20 10:25 Dose: 100 mls/hr Documented by: Promethazine HCl 12.5 mg/ (Sodium Chloride) 50.5 mls @ 202 mls/hr IV Q6H PRN PRN Reason: Nausea &/or Vomiting Stop: 12/11/20 10:46 Influenza Virus Vaccine Quadrival (Do Not Administer Flu Vaccine) 1 ea N/A PRN PRN PRN Reason: Notification Stop: 12/11/20 10:46 Insulin Aspart (Insulin Aspart 100 Units/Ml 3 Ml Pen) 0 units SC [facility]; Protocol Stop: 12/11/20 11:29 Lisinopril (L[facility]opril 10 Mg Tab) [facility] Stop: 12/12/20 08:59 Lorazepam (Lorazepam 0.5 Mg Tab) 0.5 mg PO Q8H PRN PRN Reason: sedation/anxiety Stop: 12/11/20 10:46 Magnesium Hydroxide (Magnesium Hydroxide Susp 30 Ml Udc) 30 ml PO Q24H PRN PRN Reason: Constipation Stop: 12/11/20 10:46 Menthol (Cough Drop (Sugar Free) Queta 24 Queta/1 Box) 1 queta BUCCAL PRN PRN PRN Reason: Sore Throat Stop: 12/11/20 11:29 Metoclopramide HCl (Metoclopramide Hcl Inj 5 Mg/Ml 2 Ml Vial) 10 mg IV Q6H PRN PRN Reason: Nausea &/or Vomiting Stop: 12/11/20 10:46 Miscellaneous (Carbohydrates For Hypoglycemia ) 15 - 30 gm PO UD PRN PRN Reason: Hypoglycemia Treatment Stop: 12/11/20 11:14 Miscellaneous Information (Pharmacy Glycemic Mgmt Consult) 1 ea N/A UD PRN PRN Reason: Consult Stop: 12/11/20 10:50 Multivitamins/Minerals (Calcium 600mg + Vit D 400 Iu Tab) 1 tab PO [facility] Stop: 12/12/20 08:59 Naloxone HCl (Naloxone Hcl 0.4 Mg/1 Ml Vial/Carp) 0.1 mg IV Q5M PRN PRN Reason: Oversedation/respiratory dep Stop: 12/11/20 10:46 Ondansetron HCl (Ondansetron Inj 2 Mg/Ml 2 Ml Vial) 4 mg IV Q6H PRN PRN Reason: Nausea &/or Vomiting Stop: 12/11/20 10:46 Ondansetron HCl (Ondansetron 4 Mg Od Tab) 4 mg PO Q6H PRN PRN Reason: Nausea Stop: 12/11/20 10:46 Oxycodone HCl (Oxycodone Hcl Ir 5 Mg Tab (Immediate Release)) 5 - 10 mg PO Q4H PRN PRN Reason: Pain & Pre PT Stop: 11/25/20 10:46 Pneumococcal Polyvalent Vaccine (Do Not Administer Pneumococcal Vaccine) 1 ea N/A PRN PRN PRN Reason: Notification Stop: 12/11/20 10:46 Polyethylene Glycol (Polyethylene (Miralax) 17 Gm Pack) 17 gm PO Q6 EMMANUEL Stop: 12/12/20 05:59 Prednisone (Prednisone 20 Mg Tab) 20 mg PO DAILY EMMANUEL Stop: 12/12/20 08:59 Senna/Docusate Sodium (Docusate Sodium/Senna 50/8.6mg Tab) 2 tab PO HS EMMANUEL Stop: 12/11/20 20:59 Sodium Biphosphate/Sodium Phosphate (Sod Phosphate/Sod Biphosphate Enema 132 Ml Btl) 132 ml DE ONE PRN PRN Reason: Constipation Stop: 12/11/20 10:46 Tramadol HCl (Tramadol Hcl 50 Mg Tablet) 50 - 100 mg PO Q4H PRN PRN Reason: Moderate-Severe pain & Pre PT Stop: 12/11/20 10:46 ECG Additional Comments: PRE-OPERATIVE [id number] Vent. Rate : 079 BPM Atrial Rate : 079 BPM P-R Int : 156 ms QRS Dur : 074 ms QT Int : 412 ms P-R-T Axes : 099 -04 044 degrees QTc Int : 472 ms Normal sinus rhythm Normal ECG When compared with ECG of 25-JAN-2020 07:46, Sinus rhythm has replaced Atrial fibrillation Vent. rate has decreased BY 42 BPM PG Care Time/CCT Total # of Minutes Spent Total Time Spent with Patient: Total time spent is greater than 50% in coordination of care (as documented) at patient's floor/unit and/or counseling patient: Coding Level of Care Code 61453 Inpt Consult Level 4 Diagnoses History of lumbar laminectomy Z98.890 Atrial fibrillation I48.0 Atrial fibrillation type: paroxysmal Hypertension I10 Hypertension type: unspecified Diabetes mellitus, type 2 E11.22; N18.31 Chronic kidney disease stage: stage 3 (moderate) Chronic kidney disease stage 3 subtype: stage 3a (GFR 45-59) Diabetes mellitus complication detail: with chronic kidney disease Diabetes mellitus complication status: with kidney complications Diabetes mellitus termite exterminator 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 use: without termite exterminator helper use Obstructive sleep apnea G47.33 PMR (polymyalgia rheumatica) M35.3 GERD (gastroesophageal reflux disease) K21.9 Esophagitis presence: without esophagitis CKD (chronic kidney disease), stage III N18.31 Chronic kidney disease stage 3 subtype: stage 3a (GFR 45-59) (1) Diabetes mellitus, type 2 Chronic kidney disease stage: stage 3 (moderate) Chronic kidney disease stage 3 subtype: stage 3a (GFR 45-59) Diabetes mellitus complication detail: with chronic kidney disease Diabetes mellitus complication status: with kidney complications Diabetes mellitus prison insulin use: without termite exterminator helper use Qualified Code(s): E11.22 - Type 2 diabetes mellitus with diabetic chronic kidney disease; N18.31 - Chronic kidney disease, stage 3a (2) CKD (chronic kidney disease), stage III Chronic kidney disease stage 3 subtype: stage 3a (GFR 45-59) Qualified Code(s): N18.31 - Chronic kidney disease, stage 3a (3) Atrial fibrillation Atrial fibrillation type: paroxysmal Qualified Code(s): I48.0 - Paroxysmal atrial fibrillation (4) GERD (gastroesophageal reflux disease) Esophagitis presence: without esophagitis Qualified Code(s): K21.9 - Gastro- esophageal reflux disease without esophagitis (5) Hypertension Hypertension type: unspecified Qualified Code(s): I10 - Essential (primary) hypertension
[2020-11-11] MEDS: INSULIN ASPART 100 UNITS/ML 3 ML PEN SC SCH ×3 (13:06→20:32)
[2020-11-11] MEDS: ceFAZolin 2000MG 2,000 MG/15 ML SYR IV SCH (15:49)
[2020-11-11] MEDS: DOCUSATE SODIUM 100 MG CAP PO SCH (20:30)
[2020-11-11] MEDS: DOCUSATE SODIUM/SENNA 50/8.6MG TAB PO SCH (20:31)
[2020-11-12] MEDS: ceFAZolin 2000MG 2,000 MG/15 ML SYR IV SCH (00:27)
[2020-11-12] MEDS: POLYETHYLENE (MIRALAX) 17 GM PACK PO SCH ×4 (05:39→22:52)
[2020-11-12 06:00] LABS: Basophils # (auto) 0.01 K/uL (0-0.2); Basophils % (auto) 0.1 %; Hematocrit (blood only) 35.3 % (37-47); Hemoglobin 11.5 g/dL (12.0-16.0); Immature Granulocytes # (auto) 0.15 K/uL (0.00-0.02); Immature Granulocytes % (auto) 1.1 %; Lymphocytes # (auto) 1.05 K/uL (1.2-3.4); Lymphocytes % (auto) 7.9 %; Mean Corpuscular Hemoglobin 28.3 pg (25-34); Mean Corpuscular Hgb Conc 32.6 g/dL (32-36); Mean Corpuscular Volume 86.7 fL (80-100); Mean Platelet Volume 8.6 fL (7.4-10.4); Monocytes # (auto) 0.76 K/uL (0.11-0.59); Monocytes % (auto) 5.7 %; Neutrophils # (auto) 11.38 K/uL (1.4-6.5); Neutrophils % (auto) 85.2 %; Platelet Count 301 K/uL (130-400); RDW Coefficient of Variation 15.1 % (11.5-14.5); RDW Standard Deviation 48.5 fL (36.4-46.3); Red Blood Count 4.07 M/uL (4.2-5.4); White Blood Count 13.35 K/uL (4.8-10.8)
[2020-11-12 06:35] LABS: BUN Creatinine Ratio 22.9 (10-20); Calcium 8.9 mg/dl (8.5-10.1); Creatinine Clr Calc Pharmacy 66.3 ml/min; Est GFR (African American) 68.8 ml/min; Est GFR (Non-African American) 59.3 ml/min; Potassium 3.9 mmol/L (3.5-5.1)
[2020-11-12] MEDS: hydroCHLOROthiazide 25 MG TAB PO SCH (08:58)
[2020-11-12] MEDS: INSULIN ASPART 100 UNITS/ML 3 ML PEN SC SCH ×2 (08:58→12:54)
[2020-11-12] MEDS: CALCIUM 600MG + VIT D 400 IU TAB PO SCH (08:58)
[2020-11-12] MEDS: AMIODARONE 200 MG TAB PO SCH (08:58)
[2020-11-12] MEDS ORDERED: NON-FORMULARY MEDICATION (Potassium Gluconate 595 mg (99 mg) Tablet) PO SCH (09:00)
[2020-11-12] MEDS ORDERED: lisinopril 10 MG TAB PO SCH (09:00)
[2020-11-12] MEDS ORDERED: predniSONE 20 MG TAB PO SCH (09:00)
[2020-11-12] MEDS ORDERED: HYDROCORTISONE SOD 100 MG in SYRINGE 0 ML IV ONE (09:00)
--- NOTE | 2020-11-12 11:35 | Orthopedic Progress Note ---
Date of Service November 12, 2020 Assessment & Plan (1) Lumbar disc herniation with radiculopathy: Admission and Anticipated Discharge Date Admission Date: November 11, 2020 At this time we will consult Occupational Therapy and physical therapy to work with her today. Hopefully she will be safe to go home tomorrow. Subjective Patient's back pain is controlled his radicular symptoms have improved. She is struggling with transfers and ambulation. Physical Exam Physical Exam: On exam she appears comfortable. She does have good strength testing plantarflexion dorsiflexion. She has some deficits to the right quadricep. Results & Data ([facility]) Vital Signs (Past 12 Hours) Vital Signs Temp Pulse Resp BP Pulse Ox 11/12/20 07:20 36.4 C L 60 16 128/77 97 11/12/20 03:00 36.6 C 62 16 133/80 96
[2020-11-12] MEDS ORDERED: CARBOHYDRATES FOR HYPOGLYCEMIA PO PRN (12:16)
[2020-11-12] MEDS ORDERED: DEXTROSE 50% 50 ML SYRINGE IV PRN (12:16)
[2020-11-12] MEDS ORDERED: GLUCAGON FOR INJ 1 MG VIAL SQ PRN (12:16)
[2020-11-12] MEDS ORDERED: GLUCOSE 10 TABS/TUBE PO PRN (12:16)
[2020-11-12] MEDS ORDERED: GLUCOSE 40% GEL 15 GM TUBE PO PRN (12:16)
--- NOTE | 2020-11-12 14:33 | Hospitalist Progress Note ---
Date of Service November 12, 2020 Assessment & Plan (1) History of lumbar laminectomy: POD #1 from L3-L4 Laminectomy - Chemical Prophylaxis per primary team, SCD's in place currently. Would advise resumption of Xarelto as soon as primary team okay with that (which inadvertently would also provide DVT/PE prophylaxis). - STARR drain per primary service - PT/OT per primary service - Pain control per primary service- Narcan rescue is in place - Appropriate bowel regime in place (2) Leukocytosis: * With review of old records, this is chronic. Likely steroid-induced from her chronic prednisone therapy. Could also be elevated today given her postsurgical state. No obvious evidence of active infection at this time. Patient does not have any fevers. Her preop urinalysis did not appear to be grossly infected. She has no respiratory symptoms or adventitious breath sounds on exam. Her Covid preoperative test was negative. (3) Hypertension: Controlled -Resume lisinopril. Continue HCTZ (4) Atrial fibrillation: PAF-currently in a normal sinus rhythm with controlled ventricular rate - Continue Amiodarone -Advise resumption of Xarelto when okay with primary team (pending drainage from STARR drain). Okay to hold for now (5) Diabetes mellitus, type 2: Metformin on hold -Continue blood sugar monitoring and sliding scale with correction dosing (6) Obstructive sleep apnea: Continue CPAP (7) PMR (polymyalgia rheumatica): Continue with her prednisone -It was noted that the patient did not receive a steroid challenge. Will provide steroid challenge to decrease the risk of acute adrenal crisis. Will provide Solu-Cortef 100 mg now followed by 50 mg every 6 X2 doses. She will then be transitioned to 40 mg oral prednisone to start tomorrow with down taper to her usual dose. She is uncertain if she is taking 10 or 20 mg. I encouraged her to reach out to her PCP to determine stopping point. (8) GERD (gastroesophageal reflux disease): Famotidine in place with - continue while in house and on steroids - She primarily uses Tylenol at home instead of NSAIDS (9) CKD (chronic kidney disease), stage III: * Stable Admission and Anticipated Discharge Date Admission Date: November 11, 2020 Subjective Patient seen on daily rounds today. She is a 75-year-old white female with a past medical history of atrial fibrillation on chronic Xarelto therapy, HTN, NIDDM, DAVY requiring CPAP, PMR on chronic steroids, and CKD. She is POD #1 s/p lumbar laminectomy. We have been asked to follow this patient while in house for medical management. Patient had an uneventful perioperative course. She is on chronic steroids (uncertain if she is taking 10 or 20 mg a day). She did not receive a steroid challenge. Currently, she is hemodynamically stable without hypotension or hypoglycemia. No electrolyte abnormalities thus far. Her pain seems to be adequately controlled. Her only complaint is the STARR drain being "an annoyance". She is having difficulty with transfers independently. She is concerned with safety for discharge. She lives with her but reports he is unable to aid in her care Otherwise, she denies abdominal pain, nausea or vomiting. She is passing flatus. Denies fevers, chills, chest pain, shortness of breath, abdominal pain, nausea or vomiting. Tolerating her pain medication without ill effects. Review of Systems Review of Systems: Denies fevers, chills, headache, nasal congestion, sore throat, cough, chest pain, shortness of breath, abdominal pain, nausea, vomiting, GI/ symptomatology. Physical Exam Physical Exam: General: 75-year-old white female. Morbidly obese. Resting comfortably in her hospital bed. A&O X3 NAD. Cardiac: Distant heart soundslikely related to habitus. Appears to be in a normal sinus rhythm at present time, with controlled ventricular rate Lungs: Diminished/distant due to habitus but clear to auscultation without wheezes, rales or rhonchi Abdomen: Normoactive X4. Soft and nontender in all quadrants. Musculoskeletal/extremities: STARR drain noted to lumbar region. Surgical dressing dry and intact. + Adiposity of the bilateral lower extremities without true pitting edema Results & Data Results & Data ([facility]) Vital Signs (Past 12 Hours) Vital Signs Temp Pulse Resp BP Pulse Ox 11/12/20 07:20 36.4 C L 60 16 128/77 97 11/12/20 03:00 36.6 C 62 16 133/80 96 Laboratory Results 11/12/20 05:46 11/12/20 05:46 PG Care Time/CCT Total # of Minutes Spent Total Time Spent with Patient: Total time spent is greater than 50% in coordination of care (as documented) at patient's floor/unit and/or counseling patient: [place] [address] Inpt Consult Level 4 Patient Type Established History Detailed Exam Detailed Diagnoses History of lumbar laminectomy Z98.890 Leukocytosis D72.829 Hypertension I10 Hypertension type: unspecified Atrial fibrillation I48.0 Atrial fibrillation type: paroxysmal Diabetes mellitus, type 2 E11.22; N18.31 Chronic kidney disease stage: stage 3 (moderate) Chronic kidney disease stage 3 subtype: stage 3a (GFR 45-59) Diabetes mellitus complication detail: with chronic kidney disease Diabetes mellitus complication status: with kidney complications Diabetes mellitus dynamic etching processor insulin use: without dynamic etching processor use Obstructive sleep apnea G47.33 PMR (polymyalgia rheumatica) M35.3 GERD (gastroesophageal reflux disease) K21.9 Esophagitis presence: without esophagitis CKD (chronic kidney disease), stage III N18.31 Chronic kidney disease stage 3 subtype: stage 3a (GFR 45-59) (1) Diabetes mellitus, type 2 Chronic kidney disease stage: stage 3 (moderate) Chronic kidney disease stage 3 subtype: stage 3a (GFR 45-59) Diabetes mellitus complication detail: with chronic kidney disease Diabetes mellitus complication status: with kidney complications Diabetes mellitus dynamic etching processor insulin use: without retirement use Qualified Code(s): E11.22 - Type 2 diabetes mellitus with diabetic chronic kidney disease; N18.31 - Chronic kidney disease, stage 3a (2) CKD (chronic kidney disease), stage III Chronic kidney disease stage 3 subtype: stage 3a (GFR 45-59) Qualified Code(s): N18.31 - Chronic kidney disease, stage 3a (3) Atrial fibrillation Atrial fibrillation type: paroxysmal Qualified Code(s): I48.0 - Paroxysmal atrial fibrillation (4) GERD (gastroesophageal reflux disease) Esophagitis presence: without esophagitis Qualified Code(s): K21.9 - Gastro- esophageal reflux disease without esophagitis (5) Hypertension Hypertension type: unspecified Qualified Code(s): I10 - Essential (primary) hypertension
[2020-11-12] MEDS: HYDROCORTISONE SOD 50 MG in SYRINGE 0 ML IV SCH ×2 (16:18→20:46)
[2020-11-12] MEDS ORDERED: INSULIN ASPART 100 UNITS/ML 3 ML PEN SC SCH (16:30)
[2020-11-12] MEDS ORDERED: metFORMIN HCL 500 MG TAB PO SCH (16:30)
[2020-11-12] MEDS: DOCUSATE SODIUM/SENNA 50/8.6MG TAB PO SCH (20:46)
--- NOTE | 2020-11-13 05:40 | Electrocardiogram Report ---
Test Reason : Blood Pressure : / mmHG Vent. Rate : 062 BPM Atrial Rate : 062 BPM P-R Int : 168 ms QRS Dur : 078 ms QT Int : 450 ms P-R-T Axes : 096 -05 049 degrees QTc Int : 456 ms Normal sinus rhythm Normal ECG When compared with ECG of 01-NOV-2020 09:16, No significant change was found Confirmed by Noman Leon ([id number]) on 11/13/2020 5:40:14 AM Referred By: Lazarus Styles Confirmed By:Noman Leon
[2020-11-13] MEDS: POLYETHYLENE (MIRALAX) 17 GM PACK PO SCH ×2 (06:02→13:49)
--- NOTE | 2020-11-13 06:02 | Electrocardiogram Report ---
Test Reason : Blood Pressure : / mmHG Vent. Rate : 067 BPM Atrial Rate : 067 BPM P-R Int : 166 ms QRS Dur : 082 ms QT Int : 440 ms P-R-T Axes : 113 -05 038 degrees QTc Int : 464 ms Normal sinus rhythm Normal ECG When compared with ECG of 11-NOV-2020 16:42, No significant change was found Confirmed by Noman Leon ([id number]) on 11/13/2020 6:02:16 AM Referred By: Lazarus Styles Confirmed By:Noman Leon
[2020-11-13 06:42] LABS: Basophils # (auto) 0.01 K/uL (0-0.2); Basophils % (auto) 0.1 %; Hematocrit (blood only) 32.9 % (37-47); Hemoglobin 10.7 g/dL (12.0-16.0); Immature Granulocytes # (auto) 0.18 K/uL (0.00-0.02); Immature Granulocytes % (auto) 1.6 %; Lymphocytes # (auto) 1.16 K/uL (1.2-3.4); Lymphocytes % (auto) 10.2 %; Mean Corpuscular Hemoglobin 27.9 pg (25-34); Mean Corpuscular Hgb Conc 32.5 g/dL (32-36); Mean Corpuscular Volume 85.7 fL (80-100); Mean Platelet Volume 9.1 fL (7.4-10.4); Monocytes # (auto) 0.72 K/uL (0.11-0.59); Monocytes % (auto) 6.3 %; Neutrophils % (auto) 81.8 %; Platelet Count 275 K/uL (130-400); RDW Coefficient of Variation 15.4 % (11.5-14.5); RDW Standard Deviation 48.2 fL (36.4-46.3); Red Blood Count 3.84 M/uL (4.2-5.4); White Blood Count 11.37 K/uL (4.8-10.8)
[2020-11-13 07:21] LABS: BUN Creatinine Ratio 27.9 (10-20); Calcium 9.2 mg/dl (8.5-10.1); Creatinine Clr Calc Pharmacy 69.2 ml/min; Est GFR (African American) 72.5 ml/min; Est GFR (Non-African American) 62.5 ml/min; Potassium 3.8 mmol/L (3.5-5.1)
[2020-11-13] MEDS ORDERED: bisacodyL 10 MG SUPP PR PRN (08:00)
[2020-11-13] MEDS ORDERED: lisinopril 10 MG TAB PO SCH (09:00)
[2020-11-13] MEDS ORDERED: predniSONE 20 MG TAB PO SCH (09:00)
[2020-11-13] MEDS: hydroCHLOROthiazide 25 MG TAB PO SCH (09:54)
[2020-11-13] MEDS: AMIODARONE 200 MG TAB PO SCH (09:54)
[2020-11-13] MEDS: DOCUSATE SODIUM 100 MG CAP PO SCH (09:54)
[2020-11-13] MEDS: CALCIUM 600MG + VIT D 400 IU TAB PO SCH (09:55)
--- NOTE | 2020-11-13 10:25 | Discharge Summary ---
Date of Service November 13, 2020 Admission HPI Per Admitting Provider This is a 74-year-old female has chronic persistent back and leg pain. Failing since course of nonoperative care is here for surgical invention. Principal Diagnosis Lumbar disc condition with radiculopathy Discharge Data Allergies Allergy/AdvReac Type Severity Reaction Status Date / Time Iodinated Contrast Media Allergy Intermediate Foot rash, Verified 11/11/20 06:44 swelling Sulfa (Sulfonamide Allergy Mild Rash, Verified 11/11/20 06:44 Antibiotics) itching sulfamethoxazole Allergy Mild Rash, Verified 11/11/20 06:44 itching Consultations 11/11/20 10:47 Consult Hospitalist Routine Procedures Performed Operation Date: 11/11/20 07:45 Actual Procedures p Right L3-L4 Laminectomy(Right) - Lazarus Styles DO Ordered Studies 11/11/20 07:45 FL spine 1V any level Routine Hospital Course (1) Lumbar disc herniation with radiculopathy: Patient went lumbar laminotomy tolerates well second orthopedic for postop labor postop day 1 she required some physical therapy to help with ambulation and transfers. She tolerated this well. Strength is steadily improving. On postop day 2 she was independent pain was well controlled excellent strength testing subsequent discharge home. Discharge orders instructions from the chart for further review. Total Time Total Time Spent Total Time Spent (In Minutes): 20 minutes Discharge Plan Discharge Items Patient Disposition: Home - Self-Care Reason For Visit: Intervertebral Disc Disorders With Radiculopathy Discharge Diagnosis: Lumbar disc condition with radiculopathy Activity: As commented below Non-emergency contact: Primary Care Provider Call non-emergency contact if: you have any medication questions Follow-up/Referrals: Dennis Alvarez MD [Primary Care Provider] - Diet: Regular Addtl Attending Provider Instructions: ACTIVITY RECOMMENDATIONS: SELF CARE INSTRUCTIONS AFTER A LAMINECTOMY 1. No prolonged sitting (less than 30 minutes for the first 3 weeks after surgery). 2. No bending, lifting more than 5 pounds, or twisting (roll like a log when turning in bed). 3. You may shower 3 days after surgery if no drainage from wound. Thoroughly dry wound. Do not soak in the tub. 4. Please walk as much as you can for exercise. Gradually increase the distance that you walk as your endurance increases. 5. You may drive in 7-10 days if you are comfortable and no longer requiring pain medications. SPECIAL CARE INSTRUCTIONS: VERY IMPORTANT TO READ AND REVIEW A. Your surgical incision has been closed with a cosmetic suture under the skin that will dissolve in about 6 weeks. In 14 days, you can use a pair of clean scissors and cut the suture that is left outside of the skin at the ends of your incision. B. Complications are uncommon, but please contact us if you have any signs or symptoms of: 1. wound infection (fever higher than 102.5 degrees F, redness, separation of wound, drainage, or increasing pain from the incision) 2. blood clots in legs (pain, swelling, redness and warmth in legs) 3. urinary tract infection (fever higher than 102.5 degrees, burning upon urination or increased frequency of urination) 4. nerve problems (inability to walk on your toes or heels, numbness, loss of bowel or bladder control) 5. any other symptoms that concern you. C. Please call the office at if you have any concerns or questions about your operation or recovery. MANAGING PAIN AFTER SPINAL SURGERY 1. Narcotic medication is intended for short-term use and will be provided for surgical pain. Surgical pain usually lasts for a period of 4-6 weeks. Narcotic medication includes Percocet, Vicodin, Darvocet, Tylenol #3 or Lortab. 2. Longer-term pain is more appropriately treated with non-narcotic medication such as Tylenol ES. 3. Muscle spasm is not appropriately treated with narcotics. Muscle relaxers such as Soma, Flexeril or Skelaxin can be used along with Tylenol ES. 4. Remember that we all live with some "aches and pains". This is not unusual or uncommon after an injury or as we get older. 5. We will provide appropriate medication within the normal guidelines of their prescribed use. We will also be very cautious and aware of potential abuse and extended duration of patients' medication needs. 6. Please allow 2-3 days to process refills. Prescriptions will not be mailed but must be picked up at the office. FOLLOW UP VISIT: Keep your scheduled follow-up appointment. Any questions, please call the office at . Pending Studies at Discharge: No Stand-Alone Forms: [facility] [employer] Smoking Cessation Medications and DC Order Prescriptions: New oxycodone 5 mg tablet 5 mg PO Q6H PRN (Reason: pain, severe) Qty: 20 RF: 0 tramadol 50 mg tablet 50 mg PO Q6H PRN (Reason: pain, moderate) Qty: 20 RF: 0 Continued Xarelto 20 mg tablet 20 mg PO DAILY Qty: 90 RF: 3 hydrochlorothiazide 25 mg tablet 25 mg PO QAM Qty: 90 RF: 3 lisinopril 10 mg tablet 10 mg PO QAM Qty: 90 RF: 3 metformin 500 mg tablet extended release 24 hr 500 mg PO DAILY Qty: 90 RF: 3 amiodarone 200 mg tablet 200 mg PO DAILY Qty: 90 RF: 3 acetaminophen 500 mg tablet 500 - 1,000 mg PO Q6H PRN (Reason: Pain) RF: 0 prednisone 10 mg tablet 20 mg PO DAILY RF: 0 (DME) CPAP Machine Misc See Dose Instructions .ROUTE .MEDSUPPLY Qty: 1 RF: 0 docusate sodium 100 mg capsule 100 mg PO QAM RF: 0 calcium carbonate-vitamin D3 [Calcium 600 + D(3)] 600 mg(1,500mg) -400 unit Tablet 1 tab PO QAM RF: 0 potassium gluconate 595 mg (99 mg) Tablet 99 mg PO QAM RF: 0 Discharge Orders: Discharge Order (Routine); Ordered 11/13/20 Ordered By: Lazarus Rivera/Other Patient Handouts: High Blood Sugar (Hyperglycemia), Hypoglycemia (Low Blood Sugar), How to Check Your Blood Sugar Admission Data Admit Date/Time: 11/11/20 09:42 Attending Provider: Lazarus Styles Admit Provider: Lazarus Styles Primary Care Provider: Dennis Alvarez
[2020-11-13] MEDS ORDERED: INSULIN ASPART 100 UNITS/ML 3 ML PEN SC SCH (12:00)
--- NOTE | 2020-11-13 17:13 | Hospitalist Progress Note ---
Date of Service November 13, 2020 Assessment & Plan (1) History of lumbar laminectomy: POD # from L3-L4 Laminectomy -Pain is adequately controlled. She is meeting her therapy goals. No contraindication to proceed with discharge as per primary (2) Leukocytosis: * With review of old records, this is chronic. Likely steroid-induced from her chronic prednisone therapy. Could also be elevated today given her postsurgical state. No obvious evidence of active infection at this time. Patient does not have any fevers. Her preop urinalysis did not appear to be grossly infected. She has no respiratory symptoms or adventitious breath sounds on exam. Her Covid preoperative test was negative. (3) Hypertension: Controlled -Resume lisinopril. Continue HCTZ (4) Atrial fibrillation: PAF-currently in a normal sinus rhythm with controlled ventricular rate - Continue Amiodarone -Advise resumption of Xarelto when okay with primary team (5) Diabetes mellitus, type 2: Metformin on hold -Blood sugars acceptably controlled (6) Obstructive sleep apnea: Continue CPAP (7) PMR (polymyalgia rheumatica): Continue with her prednisone -Continue tapering course of prednisone to her usual dose. Patient uncertain if she takes 10 or 20 mg a day. She is to contact her PCP to determine. She will need to take 40 mg tapering down to her baseline. Rx provided (8) GERD (gastroesophageal reflux disease): Famotidine in place with - continue while in house and on steroids - She primarily uses Tylenol at home instead of NSAIDS (9) CKD (chronic kidney disease), stage III: * Stable Thank you for allowing me to participate in the care of this patient. Do not hesitate to reconsult should a problem arise. Admission and Anticipated Discharge Date Admission Date: November 11, 2020 Subjective Patient seen on daily rounds today. She is POD #2 s/p lumbar laminectomy. Pain is adequately controlled. STARR drain since removed. Meeting therapy goals and has actually been discharged by attending. She received IV Solu-Cortef yesterday for steroid challenge given her chronic steroid dependency. Was started on oral taper this morning. Blood sugars are acceptable at 101, 108, 101, 120, 121, 135, 112, and 134. Denies having a BM but is passing flatus. denies F/C, CP, SOB, abd pain, N/V, GI/ symptoms Review of Systems Review of Systems: Denies fevers, chills, headache, nasal congestion, sore throat, cough, chest pain, shortness of breath, abdominal pain, nausea, vomiting, GI/ symptomatology. Physical Exam Physical Exam: General: Resting comfortably in her bedside chair. A&O X3 NAD. Cardiac: RRR but distant d/t habitus Lungs: CTA but diminished Abdomen: Normoactive X4. Soft and nontender in all quadrants. back/Extremities: Surgical dressing dry and intact to lumbar region. No peripheral clubbing cyanosis or edema Results & Data Results & Data ([facility]) Vital Signs (Past 12 Hours) Vital Signs Temp Pulse Pulse Resp BP Pulse Ox 11/13/20 14:57 98 11/13/20 10:44 36.4 C L 63 80 16 123/74 98 11/13/20 07:10 36.4 C L 63 16 123/74 98 Laboratory Results 11/13/20 05:41 11/13/20 05:41 PG Care Time/CCT Total # of Minutes Spent Total Time Spent with Patient: Total time spent is greater than 50% in coordination of care (as documented) at patient's floor/unit and/or counseling patient: C[place] [address] Inpt Consult Level 2 Patient Type Established History Expanded Problem Focused Exam Expanded Problem Focused Diagnoses History of lumbar laminectomy Z98.890 Leukocytosis D72.829 Hypertension I10 Hypertension type: unspecified Atrial fibrillation I48.0 Atrial fibrillation type: paroxysmal Diabetes mellitus, type 2 E11.22; N18.31 Diabetes mellitus termite 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 use: without chcf use Diabetes mellitus complication status: with kidney complications Diabetes mellitus complication detail: with chronic kidney disease Chronic kidney disease stage: stage 3 (moderate) Chronic kidney disease stage 3 subtype: stage 3a (GFR 45-59) Obstructive sleep apnea G47.33 PMR (polymyalgia rheumatica) M35.3 GERD (gastroesophageal reflux disease) K21.9 Esophagitis presence: without esophagitis CKD (chronic kidney disease), stage III N18.31 Chronic kidney disease stage 3 subtype: stage 3a (GFR 45-59) (1) Hypertension Hypertension type: unspecified Qualified Code(s): I10 - Essential (primary) hypertension (2) Atrial fibrillation Atrial fibrillation type: paroxysmal Qualified Code(s): I48.0 - Paroxysmal atrial fibrillation (3) Diabetes mellitus, type 2 Diabetes mellitus termite 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 use: without termite helper use Diabetes mellitus complication status: with kidney complications Diabetes mellitus complication detail: with chronic kidney disease Chronic kidney disease stage: stage 3 (moderate) Chronic kidney disease stage 3 subtype: stage 3a (GFR 45-59) Qualified Code(s): E11.22 - Type 2 diabetes mellitus with diabetic chronic kidney disease; N18.31 - Chronic kidney disease, stage 3a (4) GERD (gastroesophageal reflux disease) Esophagitis presence: without esophagitis Qualified Code(s): K21.9 - Gastro-esophageal reflux disease without esophagitis (5) CKD (chronic kidney disease), stage III Chronic kidney disease stage 3 subtype: stage 3a (GFR 45-59) Qualified Code(s): N18.31 - Chronic kidney disease, stage 3a
== END 2020-11-13 13:55 | disposition home or self-care (01) | DRG 516 ==
LOC: ASU 05:37 → 3E 09:42

== ENCOUNTER 2021-07-23 14:03 | Inpatient (IN) ==
[2021-07-23] MEDS ORDERED: ONDANSETRON INJ 2 MG/ML 2 ML VIAL IV STA (15:39)
[2021-07-23] MEDS: HYDROmorphone INJ 0.5 MG/0.5 ML SYR IV PRN ×2 (15:53→18:48)
--- NOTE | 2021-07-23 16:03 | Emergency Department Note ---
Impression & Plan Abdominal pain, acute, bilateral lower quadrant, Acute proctitis, Elevated lactic acid level ED Provider Note INFORMANT: Patient and family ED PROVIDER(S): Dav Harding MD CHIEF COMPLAINT: Abdominal pain PLAN: Disposition: Admitted Condition: Good Outpatient prescription management: none Referral: None MEDICAL DECISION MAKING: Patient presented to the emergency department because of lower abdominal pain. Work-up was initiated. The patient's CBC was unremarkable. Her chemistry panel showed mild elevation of her creatinine. Patient was hydrated. She was treated with Zofran and Dilaudid. She did feel better with this. The patient was found to have a proctitis on CT imaging. Her lactate came back elevated. The patient's ECG showed a normal sinus rhythm. I did have concerns about possible ischemia given the elevated lactate and pain. Due to the elevated creatinine CT imaging was deferred. I did consult with Dr. Amaya Brewer of GI. He recommended IV Cipro and Flagyl. We did discuss stool studies and he agreed. C. difficile and stool PCR testing was ordered. Patient was reassessed. Family was updated. Consultation was made with the [facility]. Patient was evaluated in the ER by the team and admitted for further management. Triage Nursing notes reviewed and agree them. Vital Signs: reviewed and remarkable for no significant abnormalities Differential diagnosis: Appendicitis, infections, diverticulitis, UTI, obstruction, mesenteric ischemia, aortic pathology, inflammatory bowel disease, renal colic, PUD, pancreatitis, biliary pathology, hernia, volvulus, constipation, as well as other pathologies. Diagnostics interpreted by me: EC Lead ECG performed and revealed Normal sinus rhythym at 74, normal [place], QRS normal. No elevation or depression. No PACs or PVCs Cardiac Monitoring: Cardiac monitoring ordered by me: The patient was placed on continuous cardiac monitoring and observed. It revealed a normal sinus rhythm at 64 beats per minute without ectopy or evidence of dysrhythmia. Imaging studies: CT as above. I refer you to the EMR for further details. HPI: The patient is a 76 year old female who presents to the Emergency Room with complaints of lower abdominal pain. This started this morning and is described as sharp and severe. Nonradiating. The patient also notes the following associated symptoms, irregular bowel movements over the last few months. The patient has found no relieving factors. Current pain is rated as 10/10. Patient has been on an extended prescription of prednisone and is weaning off. She is also on methotrexate. This was done for arthritis. Pt denies LOC, headache, fevers, chills, diaphoresis, visual changes, neck pain, chest pain, breathing difficulties, nausea, vomiting, back pain, melena, hematochezia, urinary symptoms, numbness, weakness, lymphadenopathy, rash, or other complaints. ROS: See above HPI for pertinent positives & negatives. A total of 10 systems reviewed and were otherwise negative. PAST MEDICAL HISTORY:See Below , arthritis, diabetes, hypertension, paroxysmal A. fib PAST SURGICAL HISTORY:See Below, FAMILY HISTORY:See Below SOCIAL HISTORY:See Below, retired HOME MEDICATIONS:See Below ALLERGIES:See Below VITALS:See Below PHYSICAL EXAMINATION: GENERAL: Awake, alert, uncomfortable-appearing, in no distress HENT: Normocephalic, atraumatic. Oropharynx unremarkable. EYES: Normal conjunctiva. Sclera non-icteric. NECK: Inspection normal. Non-tender. Supple. No nuchal rigidity. FROM. No masses. RESPIRATORY: Clear to auscultation. No wheezes. No rales. Normal respiratory effort. CARDIAC: Normal rate. Normal rhythm. No murmurs. No rubs. Extremities warm and well perfused. Pulses equal. No JVD. GI: Soft, non-distended. Generalized tenderness to palpation. Worse in the lower quadrants. Mild rebound and guarding. No masses. RECTAL: Hemorrhoid present at 3:00 without evidence of thrombosis. No sign of perirectal cellulitis or abscess. Tender. MUSCULOSKELETAL: Atraumatic. There is no CVA tenderness to palpation. No joint edema. LOWER EXTREMITIES: Calves are equal size bilaterally and non-tender. 1-2+ edema. No discoloration. NEURO: Normal sensorium. No sensory or motor deficits noted. SKIN: No rash or jaundice noted. Dav Harding MD Past Med/Surg History Medical History Chronic shoulder pain Diabetes mellitus, type 2 Glaucoma Hypertension Morbid obesity Paroxysmal atrial fibrillation PMR (polymyalgia rheumatica) Sleep apnea Surgical History Cyst H/O colonoscopy History of ankle surgery History of carpal tunnel release History of hernia repair History of knee replacement procedure of right knee History of laminectomy History of left knee replacement History of lumpectomy of left breast History of revision of total knee arthroplasty History of surgical procedure on eye proper using laser History of tooth extraction Hx of hysterectomy Hx of left cataract extraction Hx of right cataract extraction Family History Sister Breast cancer Father Heart disease Other No family history of adverse response to anesthesia Denies family history of Ovarian cancer Prostate cancer Myocardial infarction Lung cancer Colorectal cancer Social History Smoking Status: Former smoker Age Started Using Tobacco: 5; Age Quit Using Tobacco: 25; packs per day: 1; Years Smoked: 24; Second Hand Exposure: No; Hx Alcohol Use: No Hx Substance Use: No Preferred Language: Serbian Communication Ability: Effective Visual Impairment: Limited Hearing Ability: Normal Trimmer Buffing Wheel Required: No Beliefs That Will Affect Care: None marital status: Current Living Situation: Family current occupational status: retired How many Children do You have: 5 Feels Safe at Home: Yes Childhood Exposure to Second-Hand Smoke: Yes caffeine: No during the past year weight has: decreased > 10 lbs Dental Care, Regularly: No Physical Activity Frequency: Does not Exercise Seatbelt Use: always Sunscreen Use: No Do you think of yourself as: straight/heterosexual Gender Identity: Female Assistive Devices: Cane, CPAP, Glasses and Walker Allergies Allergies Allergy/AdvReac Type Severity Reaction Status Date / Time Iodinated Contrast Media Allergy Intermediate Foot rash, Verified 07/23/21 15:09 swelling Sulfa (Sulfonamide Allergy Mild Rash, Verified 07/23/21 15:09 Antibiotics) itching sulfamethoxazole Allergy Mild Rash, Verified 07/23/21 15:09 itching prednisone AdvReac Mild Redness of Verified 07/23/21 15:09 Skin/SORES Home Meds Home Medications Medication Instructions Recorded Confirmed calcium carbonate 600 mg-vitamin 1 tab PO QAM 01/25/20 07/23/21 D3 10 mcg (400 unit) tablet (Calcium 600 + D(3)) potassium gluconate 595 mg (99 mg) 99 mg PO QAM 01/25/20 07/23/21 tablet acetaminophen 500 mg tablet 500 - 1,000 mg PO Q6H PRN 05/16/20 07/23/21 zinc gluconate 50 mg tablet 50 mg PO DAILY 06/04/21 07/23/21 cholecalciferol (vitamin D3) 25 25 mcg PO DAILY 07/23/21 07/23/21 mcg (1,000 unit) capsule (Vitamin D3) metformin 500 mg tablet,extended 500 mg PO QDD 07/23/21 07/23/21 release 24 hr methotrexate sodium 2.5 mg tablet 15 mg PO WK 07/23/21 07/23/21 prednisone 20 mg tablet 20 mg PO QAM 07/23/21 07/23/21 prednisone 5 mg tablet 17.5 mg PO QPM 07/23/21 07/23/21 Previous Rx's Medication Instructions Recorded rivaroxaban 20 mg tablet (Xarelto) 20 mg PO DAILY #90 tab 05/16/21 folic acid 1 mg tablet 1 mg PO DAILY #90 tab 06/05/21 hydrochlorothiazide 25 mg tablet 25 mg PO DAILY #90 tab 06/05/21 lisinopril 10 mg tablet 10 mg PO DAILY #90 tab 06/11/21 amiodarone 200 mg tablet 200 mg PO DAILY #90 tab 07/01/21 Results & Data (ED) Vital Signs Vital Signs - 24 hr 07/23/21 14:04 07/23/21 14:06 07/23/21 15:00 Temperature 37.0 C 36.7 C Temperature Source Oral Oral Pulse Rate 91 H 87 Pulse Rate from SpO2 Sensor Pulse Rhythm Regular Pulse Strength Normal Respiratory Rate 24 20 18 Respiratory Effort / Characteristics Non-Labored Spontaneous Respiratory Depth Normal Respiratory Pattern Regular Blood Pressure 107/68 95/67 L Blood Pressure Mean 81 76 Pulse Oximetry 97 98 97 Oxygen Delivery Method Room Air Sepsis Recent Fever Within 48 Hours No Sepsis New/Unexplained Change in Mental Status N/A Sepsis Action Taken by Nursing No Action Required 07/23/21 15:30 07/23/21 16:00 07/23/21 16:17 Temperature Temperature Source Pulse Rate 73 69 82 Pulse Rate from SpO2 Sensor 75 Pulse Rhythm Pulse Strength Respiratory Rate 21 12 18 Respiratory Effort / Characteristics Respiratory Depth Respiratory Pattern Blood Pressure 107/73 115/71 98/55 L Blood Pressure Mean 84 85 69 Pulse Oximetry 97 100 Oxygen Delivery Method Sepsis Recent Fever Within 48 Hours Sepsis New/Unexplained Change in Mental Status Sepsis Action Taken by Nursing 07/23/21 16:30 07/23/21 17:00 07/23/21 17:30 Temperature Temperature Source Pulse Rate 61 65 65 Pulse Rate from SpO2 Sensor 56 L 59 L 65 Pulse Rhythm Pulse Strength Respiratory Rate 25 H 15 16 Respiratory Effort / Characteristics Respiratory Depth Respiratory Pattern Blood Pressure 98/56 L 106/61 113/67 Blood Pressure Mean 70 76 82 Pulse Oximetry 99 97 95 Oxygen Delivery Method Sepsis Recent Fever Within 48 Hours Sepsis New/Unexplained Change in Mental Status Sepsis Action Taken by Nursing 07/23/21 18:00 07/23/21 18:30 Temperature Temperature Source Pulse Rate 68 64 Pulse Rate from SpO2 Sensor 68 66 Pulse Rhythm Pulse Strength Respiratory Rate 24 17 Respiratory Effort / Characteristics Respiratory Depth Respiratory Pattern Blood Pressure 118/71 129/69 Blood Pressure Mean 86 89 Pulse Oximetry 99 99 Oxygen Delivery Method Sepsis Recent Fever Within 48 Hours Sepsis New/Unexplained Change in Mental Status Sepsis Action Taken by Nursing Laboratory Data Result diagrams: 07/23/21 Unknown 07/23/21 Unknown Lab Results 07/23/21 07/23/21 07/23/21 Range/Units 17:20 Unknown Unknown WBC 9.03 (4.8-10.8) K/uL RBC 3.85 L (4.2-5.4) M/uL Hgb 11.9 L (12.0-16.0) g/dL Hct 36.3 L (37-47) % MCV 94.3 (80-100) fL MCH 30.9 (25-34) pg MCHC 32.8 (32-36) g/dL RDW Std Deviation 62.6 H (36.4-46.3) fL RDW Coeff of Tiffany 18.7 H (11.5-14.5) % Plt Count 178 (130-400) K/uL MPV 9.5 (7.4-10.4) fL Absolute Nucleated RBC 0.03 H (0-0) K/uL Nucleated RBC % (auto) 0.3 % Neutrophils % (Manual) 93.0 % Lymphocytes % (Manual) 2.6 % Monocytes % (Manual) 0.9 % Myelocytes % (Man) 3.5 % Neutrophils # (Manual) 8.40 H (1.4-6.5) K/uL Total Absolute Neuts 8.40 H (1.4-6.5) K/uL Lymphocytes # (Manual) 0.23 L (1.2-3.4) K/uL Total Abs Lymphocytes 0.23 L (1.2-3.4) K/uL Monocytes # (Manual) 0.08 L (0.11-0.59) K/uL Myelocytes # (Manual) 0.32 H (0-0) K/uL Polychromasia 1+ Sodium 140 (136-145) mmol/L Potassium 4.8 (3.5-5.1) mmol/L Chloride 102 (98-107) mmol/L Carbon Dioxide 28 (21-32) mmol/L Anion Gap 10 (3-11) BUN 45 H (6-23) mg/dl Creatinine 1.91 H (0.6-1.2) mg/dl Est Cr Clr Drug Dosing 29.4 ml/min Est GFR ( Amer) 29.0 ml/min Est GFR (Non-Af Amer) 25.0 ml/min BUN/Creatinine Ratio 23.6 H (10-20) Glucose 145 H (70-99(Fasting)) mg/dl Lactate 3.2 H* (0.4-2.0) mmol/L Calcium 10.3 H (8.5-10.1) mg/dl Total Bilirubin 0.8 (0.2-1.0) mg/dl AST 11 L (13-39) U/L ALT 31 (7-52) U/L Alkaline Phosphatase 52 (34-104) U/L Total Protein 5.5 L (6.0-8.3) gm/dl Albumin 3.4 (3.4-5.0) gm/dl Globulin 2.1 L (2.5-4.0) gm/dl Albumin/Globulin Ratio 1.6 (0.9-2) Lipase 12 (11-82) U/L Administered Medications Hydromorphone HCl (Hydromorphone Inj 0.5 Mg/0.5 Ml Syr) 0.25 mg IV Q15M PRN PRN Reason: Pain Stop: 08/06/21 15:38 Last Admin: 07/23/21 18:48 Dose: 0.25 mg Documented by: [id number] Admin: 07/23/21 15:53 Dose: 0.25 mg Documented by: [id number] Ciprofloxacin (Cipro / D5w) 400 mg in 200 mls @ 100 mls/hr IV NOW STA; Protocol Stop: 07/23/21 20:12 Last Admin: 07/23/21 18:38 Dose: 100 mls/hr Documented by: [id number] Sodium Chloride (Nss 1000ml) 1,000 mls @ 125 mls/hr IV .Q8H STA Stop: 07/24/21 02:12 Last Admin: 07/23/21 18:39 Dose: 125 mls/hr Documented by: [id number] Metronidazole (Flagyl) 500 mg in 100 mls @ 100 mls/hr IV ONE ONE Stop: 07/23/21 19:29 Last Admin: 07/23/21 18:51 Dose: 100 mls/hr Documented by: [id number] Discontinued Medications Ondansetron HCl (Ondansetron Inj 2 Mg/Ml 2 Ml Vial) 4 mg IV NOW STA Stop: 07/23/21 15:40 Last Admin: 07/23/21 15:53 Dose: 4 mg Documented by: [id number] Imaging Data Radiologist's Impression: Abdomen/Pelvis CT 07/23/21 15:39 CT abd pelvis wo con CLINICAL HISTORY: acute lower abd pain, ?perf ?divertic TECHNIQUE: Helical axial images of the abdomen and pelvis were obtained. Automated dose lowering techniques and/or adjustment according to patient size were utilized for this exam. This exam was performed without intravenous contrast. COMPARISON: Comparison is made to CT abdomen pelvis 09/15/2010 FINDINGS: Lower chest: Bibasilar atelectasis versus scarring is seen. Liver: Unremarkable. No focal lesions are seen. Gallbladder and biliary tree: No calcified gallstones. Normal caliber wall. No intra- or extrahepatic biliary ductal dilation. Pancreas: Unremarkable, no focal lesions. Spleen: Unremarkable. Adrenals: Unremarkable. Kidneys and ureters: Parapelvic cysts are seen bilaterally. Bladder: Unremarkable. Reproductive organs: Unremarkable. Bowel: There is thickening of the rectal wall and the rectum is under distended. Scattered diverticula are seen without evidence of wall thickening or fat stranding. Lymph nodes Retroperitoneal: Unremarkable. Mesenteric: Unremarkable. Pelvic: Unremarkable. Peritoneum: Normal. Vessels: Atherosclerotic calcifications are seen. Abdominal wall: Patient is status post multiple ventral hernia repairs. A fat- containing umbilical hernia remains. Bones: Degenerative changes in the visualized spine. IMPRESSION: Rectal wall thickening is seen, which may be nonspecific secondary to underdistention, however proctitis cannot be entirely excluded. No evidence of diverticulitis or perforation is seen. ACT 112: Negative or not required by law. Electronically signed by: Srinivasan Sandoval M.D. 07/23/2021 4:27 PM Discharge Plan Visit Data Chief Complaint: Abdominal Pain Stated Complaint: STOMACH PAIN ED Provider: Dav Harding Discharge Problem: Abdominal pain, acute, bilateral lower quadrant, Acute proctitis, Elevated lactic acid level Forms Stand Alone Forms: My [facility] [employer] Prescriptions Prescriptions: No Action Xarelto 20 mg tablet 20 mg PO DAILY Qty: 90 RF: 3 hydrochlorothiazide 25 mg tablet 25 mg PO DAILY Qty: 90 RF: 3 folic acid 1 mg tablet 1 mg PO DAILY Qty: 90 RF: 3 lisinopril 10 mg tablet 10 mg PO DAILY Qty: 90 RF: 3 amiodarone 200 mg tablet 200 mg PO DAILY Qty: 90 RF: 3 acetaminophen 500 mg tablet 500 - 1,000 mg PO Q6H PRN (Reason: Pain) RF: 0 zinc gluconate 50 mg tablet 50 mg PO DAILY RF: 0 calcium carbonate-vitamin D3 [Calcium 600 + D(3)] 600 mg(1,500mg) -400 unit Tablet 1 tab PO QAM RF: 0 potassium gluconate 595 mg (99 mg) Tablet 99 mg PO QAM RF: 0 prednisone 5 mg tablet 17.5 mg PO QPM RF: 0 cholecalciferol (vitamin D3) [Vitamin D3] 25 mcg (1,000 unit) Capsule 25 mcg PO DAILY RF: 0 methotrexate sodium 2.5 mg tablet 15 mg PO WK RF: 0 metformin 500 mg tablet extended release 24 hr 500 mg PO QDD RF: 0 prednisone 20 mg tablet 20 mg PO QAM RF: 0 Referrals Referrals: Dennis Alvarez MD [Primary Care Provider] -
--- NOTE | 2021-07-23 16:29 | CT Scan Report ---
CT abd pelvis wo con CLINICAL HISTORY: acute lower abd pain, ?perf ?divertic TECHNIQUE: Helical axial images of the abdomen and pelvis were obtained. Automated dose lowering tech niques and/or adjustment according to patient size were utilized for this exam. This exam was perfor med without intravenous contrast. COMPARISON: Comparison is made to CT abdomen pelvis 09/15/2010 FINDINGS: Lower chest: Bibasilar atelectasis versus scarring is seen. Liver: Unremarkable. No focal lesions are seen. Gallbladder and biliary tree: No calcified gallstones. Normal caliber wall. No intra- or extrahepatic biliary ductal dilation. Pancreas: Unremarkable, no focal lesions. Spleen: Unremarkable. Adrenals: Unremarkable. Kidneys and ureters: Parapelvic cysts are seen bilaterally. Bladder: Unremarkable. Reproductive organs: Unremarkable. Bowel: There is thickening of the rectal wall and the rectum is under distended. Scattered diverticul a are seen without evidence of wall thickening or fat stranding. Lymph nodes Retroperitoneal: Unremarkable. Mesenteric: Unremarkable. Pelvic: Unremarkable. Peritoneum: Normal. Vessels: Atherosclerotic calcifications are seen. Abdominal wall: Patient is status post multiple ventral hernia repairs. A fat-containing umbilical he rnia remains. Bones: Degenerative changes in the visualized spine. IMPRESSION: Rectal wall thickening is seen, which may be nonspecific secondary to underdistention, however procti tis cannot be entirely excluded. No evidence of diverticulitis or perforation is seen. ACT 112: Negative or not required by law. Electronically signed by: Srinivasan Sandoval M.D. 07/23/2021 4:27 PM
[2021-07-23 17:53] LABS: Hematocrit (blood only) 36.3 % (37-47); Hemoglobin 11.9 g/dL (12.0-16.0); Mean Corpuscular Hemoglobin 30.9 pg (25-34); Mean Corpuscular Hgb Conc 32.8 g/dL (32-36); Mean Corpuscular Volume 94.3 fL (80-100); Mean Platelet Volume 9.5 fL (7.4-10.4); Nucleated RBC # (auto) 0.03 K/uL (0-0); Nucleated RBC % (auto) 0.3 %; Platelet Count 178 K/uL (130-400); RDW Coefficient of Variation 18.7 % (11.5-14.5); RDW Standard Deviation 62.6 fL (36.4-46.3); Red Blood Count 3.85 M/uL (4.2-5.4); White Blood Count 9.03 K/uL (4.8-10.8)
[2021-07-23 18:09] LABS: Albumin Globulin Ratio 1.6 (0.9-2); Albumin Level 3.4 gm/dl (3.4-5.0); BUN Creatinine Ratio 23.6 (10-20); Bilirubin,Total 0.8 mg/dl (0.2-1.0); Calcium 10.3 mg/dl (8.5-10.1); Creatinine Clr Calc Pharmacy 29.4 ml/min; Globulin 2.1 gm/dl (2.5-4.0); Potassium 4.8 mmol/L (3.5-5.1); Total Protein 5.5 gm/dl (6.0-8.3)
[2021-07-23] MEDS ORDERED: CIPROFLOXACIN / D5W 400 MG/200 ML BAG IV STA (18:13)
[2021-07-23] MEDS ORDERED: SODIUM CHLORIDE 0.9% 1000ML 1,000 ML IV STA (18:13)
[2021-07-23] MEDS ORDERED: metroNIDAZOLE 500 MG/100 ML BAG IV ONE (18:30)
[2021-07-23 18:36] LABS: ALC (manual) 0.23 K/uL (1.2-3.4); Lymphocytes # (manual) 0.23 K/uL (1.2-3.4); Lymphocytes % (manual) 2.6 %; Monocytes # (manual) 0.08 K/uL (0.11-0.59); Monocytes % (manual) 0.9 %; Myelocytes # (manual) 0.32 K/uL (0-0); Myelocytes % (manual) 3.5 %; Polychromasia 1+
[2021-07-23] MEDS ORDERED: FAMOTIDINE 20 MG in SYRINGE 3 ML IV SCH (21:00)
--- NOTE | 2021-07-23 21:24 | Ultrasound Report ---
US duplex mesenteric HISTORY: 76 years-old Female extreme abdominal pain, GORDY acute generalized abdominal pain with acute kidney injury COMPARISON: CT abdomen and pelvis of same day TECHNIQUE: Multiple real-time sonographic images of the abdominal aorta and mesenteric vessels were o btained assessing grayscale appearance, color and spectral flow FINDINGS: [Velocities within the atherosclerotic aorta measures up to 55 cm/s, within the celiac artery measure s 220 cm/s. With inspiration measures 124 cm/s. Within the superior mesenteric artery measures up to 168 cm/s and within the inferior mesenteric artery measures up to 119 cm/s. No mesenteric or arterial occlusion. Cholelithiasis incidentally noted. IMPRESSION: Elevated peak systolic velocities within the celiac artery are suggestive of arterial julio nosis. ACT 112: Negative or not required by law. The above report was generated using voice recognition software. It may contain grammatical, syntax o r spelling errors. Electronically signed by: Kevin Diaz M.D. 07/23/2021 9:22 PM
[2021-07-23] MEDS: ERTAPENEM SODIUM 1,000 MG in SYRINGE 0 ML IV SCH (21:35)
[2021-07-23] MEDS: FAMOTIDINE 20 MG in SYRINGE 3 ML IV SCH (21:36)
--- NOTE | 2021-07-23 21:53 | History & Physical Report ---
Date of Service July 23, 2021 Assessment & Plan (1) Acute proctitis: Plan: Acute proctitis/acute lower quadrant abdominal pain- CT notes acute proctitis- Patient was noted to have rigors and paroxysmally severe abdominal pain during examination Was given Cipro IV and Flagyl IV by the ED Have expanded antibiotic coverage to Invanz 1 g IV daily NPO except amiodarone NSS at 125 mils per hour x2 L Consult gastroenterology, already contacted by the ED (2) Celiac artery stenosis: Plan: Mesenteric Dopplers notes celiac artery stenosis, however, there is no sign of mesenteric or arterial occlusion. (3) Abdominal pain, acute, bilateral lower quadrant: Plan: See above (4) Acute kidney injury superimposed on CKD: Plan: Creatinine 1.91 upon admission, with base 1.13 IV fluids as noted, and recheck laboratories serially in a.m. If creatinine is improved in the morning, would consider CT of abdomen pelvis with contrast at that time (5) Paroxysmal atrial fibrillation: Plan: Paroxysmal atrial fibrillation/hypertension- Hold lisinopril, HCTZ Continue Xarelto, with last dose taken routinely in the morning. May change to heparin infusion in the morning (6) Rheumatoid arthritis: Plan: Patient has been on methotrexate and chronic prednisone use for several months Likely secondarily suppressing intensity of infection For now, hold prednisone, including stress dosing (7) GERD (gastroesophageal reflux disease): Plan: Place on famotidine 20 mg IV every 12 hours (8) Obstructive sleep apnea: Plan: CPAP at bedtime as needed (9) Diabetes mellitus, type 2: Plan: Hold Metformin Place on Accu-Cheks before meals and at bedtime with NovoLog coverage per scale (10) Hypertension: Plan: See above History of Present Illness Chief Complaint: The patient presents to the emergency department with complaint of lower abdominal pain that is worsened considerably over the past 24 hours Primary Care Provider: Dennis Alvarez MD The patient is a 76-year-old female with a past medical history including rheumatoid arthritis, chronic prednisone use, CKD stage III, GERD, hyperlipidemia, history of lumbar laminectomy, DAVY, hypertension, diabetes mellitus, paroxysmal atrial fibrillation on Xarelto. Her daughter reports that she has had episodes of loose stools followed by episodes of no stool passage over the past few weeks. Her pain has intensified significantly over the past 24 hours, which prompted her visit to the emergency department. Allergies Allergy/AdvReac Type Severity Reaction Status Date / Time Iodinated Contrast Media Allergy Intermediate Foot rash, Verified 07/23/21 15:09 swelling Sulfa (Sulfonamide Allergy Mild Rash, Verified 07/23/21 15:09 Antibiotics) itching sulfamethoxazole Allergy Mild Rash, Verified 07/23/21 15:09 itching prednisone AdvReac Mild Redness of Verified 07/23/21 15:09 Skin/SORES Home Medications Medication Instructions Recorded Confirmed Type calcium carbonate 600 mg-vitamin 1 tab PO QAM 01/25/20 07/23/21 History D3 10 mcg (400 unit) tablet (Calcium 600 + D(3)) potassium gluconate 595 mg (99 mg) 99 mg PO QAM 01/25/20 07/23/21 History tablet acetaminophen 500 mg tablet 500 - 1,000 mg PO Q6H PRN 05/16/20 07/23/21 History rivaroxaban 20 mg tablet (Xarelto) 20 mg PO DAILY #90 tab 05/16/21 07/23/21 Rx zinc gluconate 50 mg tablet 50 mg PO DAILY 06/04/21 07/23/21 History folic acid 1 mg tablet 1 mg PO DAILY #90 tab 06/05/21 07/23/21 Rx hydrochlorothiazide 25 mg tablet 25 mg PO DAILY #90 tab 06/05/21 07/23/21 Rx lisinopril 10 mg tablet 10 mg PO DAILY #90 tab 06/11/21 07/23/21 Rx amiodarone 200 mg tablet 200 mg PO DAILY #90 tab 07/01/21 07/23/21 Rx cholecalciferol (vitamin D3) 25 25 mcg PO DAILY 07/23/21 07/23/21 History mcg (1,000 unit) capsule (Vitamin D3) metformin 500 mg tablet,extended 500 mg PO QDD 07/23/21 07/23/21 History release 24 hr methotrexate sodium 2.5 mg tablet 15 mg PO WK 07/23/21 07/23/21 History prednisone 20 mg tablet 20 mg PO QAM 07/23/21 07/23/21 History prednisone 5 mg tablet 17.5 mg PO QPM 07/23/21 07/23/21 History Past Med/Surg History Medical History Chronic shoulder pain Diabetes mellitus, type 2 Glaucoma Hypertension Morbid obesity Paroxysmal atrial fibrillation PMR (polymyalgia rheumatica) Sleep apnea Surgical History Cyst H/O colonoscopy History of ankle surgery History of carpal tunnel release History of hernia repair History of knee replacement procedure of right knee History of laminectomy History of left knee replacement History of lumpectomy of left breast History of revision of total knee arthroplasty History of surgical procedure on eye proper using laser History of tooth extraction Hx of hysterectomy Hx of left cataract extraction Hx of right cataract extraction Family History Sister Breast cancer Father Heart disease Other No family history of adverse response to anesthesia Denies family history of Ovarian cancer Prostate cancer Myocardial infarction Lung cancer Colorectal cancer Social History Smoking Status: Former smoker Age Started Using Tobacco: 5; Age Quit Using Tobacco: 25; packs per day: 1; Years Smoked: 24; Second Hand Exposure: No; Hx Alcohol Use: No Hx Substance Use: No Preferred Language: Peruvian Communication Ability: Effective Visual Impairment: Limited Hearing Ability: Normal Chicken Cutter Required: No Beliefs That Will Affect Care: None marital status: Current Living Situation: Family current occupational status: retired How many Children do You have: 5 Feels Safe at Home: Yes Childhood Exposure to Second-Hand Smoke: Yes caffeine: No during the past year weight has: decreased > 10 lbs Dental Care, Regularly: No Physical Activity Frequency: Does not Exercise Seatbelt Use: always Sunscreen Use: No Do you think of yourself as: straight/heterosexual Gender Identity: Female Assistive Devices: Cane, CPAP, Glasses and Walker Review of Systems Review of Systems: The patient denies chest pain, palpitations, shortness of breath, dyspnea on exertion, cough, lower extremity swelling, sore throat, fevers, chills, sweats, vomiting, blood in urine or stool, dysuria, urinary frequency or urgency, lightheadedness, dizziness, headache, memory loss, loss of consciousness, rash, abnormal bruising or bleeding, imbalance, focal weakness, numbness or tingling in arms or legs, or night sweats. The review of systems is otherwise negative other than for that already noted above, and at least 10 systems have been reviewed. Physical Exam Physical Exam: The patient is awake, alert and oriented 3, well developed and well nourished, normocephalic and atraumatic, lying in bed and in mild to moderate acute distress due to episodic abdominal pain HEENT--PERRL, EOMI, mucous membranes and oropharynx dry. Neck--supple. No JVD. No bruits. Thyroid normal, trachea midline, no adenopathy. Heart--normal S1 and S2. No murmurs, rubs or gallops. Lungs--clear bilaterally, no respiratory distress, no accessory muscle use. Abdomen--hyperactive bowel sounds. Mildly distended and tympanitic. Extremities--no cyanosis or clubbing. Bilateral pretibial 1+ pitting edema. Area of weeping right lower anterior tibial surface Dermatologic--lower extremities as noted above Neurologic--cranial nerves II through XII grossly intact. Rheumatologic--normal range of motion. Psychiatric--normal affect. Results & Data Results & Data ([facility]) Vital Signs (Past 12 Hours) Vital Signs Temp Pulse Resp BP Pulse Ox 07/23/21 21:00 109/64 07/23/21 20:51 62 20 99/57 L 100 07/23/21 20:15 36.6 C 07/23/21 20:00 64 21 121/66 100 07/23/21 19:30 65 19 115/58 L 100 07/23/21 19:02 68 18 133/80 99 07/23/21 18:30 64 17 129/69 99 07/23/21 18:00 68 24 118/71 99 07/23/21 17:30 65 16 113/67 95 07/23/21 17:00 65 15 106/61 97 07/23/21 16:30 61 25 H 98/56 L 99 07/23/21 16:17 82 18 98/55 L 100 07/23/21 16:00 69 12 115/71 07/23/21 15:30 73 21 107/73 97 07/23/21 15:00 87 18 95/67 L 97 07/23/21 14:06 36.7 C 91 H 20 107/68 98 07/23/21 14:04 37.0 C 24 97 Laboratory Results Laboratory Results WBC 9.03 K/uL (4.8-10.8) 07/23/21 Unknown RBC 3.85 M/uL (4.2-5.4) L 07/23/21 Unknown Hgb 11.9 g/dL (12.0-16.0) L 07/23/21 Unknown Hct 36.3 % (37-47) L 07/23/21 Unknown MCV 94.3 fL (80-100) 07/23/21 Unknown MCH 30.9 pg (25-34) 07/23/21 Unknown MCHC 32.8 g/dL (32-36) 07/23/21 Unknown RDW Std Deviation 62.6 fL (36.4-46.3) H 07/23/21 Unknown RDW Coeff of Tiffany 18.7 % (11.5-14.5) H 07/23/21 Unknown Plt Count 178 K/uL (130-400) 07/23/21 Unknown MPV 9.5 fL (7.4-10.4) 07/23/21 Unknown Absolute Nucleated RBC 0.03 K/uL (0-0) H 07/23/21 Unknown Nucleated RBC % (auto) 0.3 % 07/23/21 Unknown Neutrophils % (Manual) 93.0 % 07/23/21 Unknown Lymphocytes % (Manual) 2.6 % 07/23/21 Unknown Monocytes % (Manual) 0.9 % 07/23/21 Unknown Myelocytes % (Man) 3.5 % 07/23/21 Unknown Neutrophils # (Manual) 8.40 K/uL (1.4-6.5) H 07/23/21 Unknown Total Absolute Neuts 8.40 K/uL (1.4-6.5) H 07/23/21 Unknown Lymphocytes # (Manual) 0.23 K/uL (1.2-3.4) L 07/23/21 Unknown Total Abs Lymphocytes 0.23 K/uL (1.2-3.4) L 07/23/21 Unknown Monocytes # (Manual) 0.08 K/uL (0.11-0.59) L 07/23/21 Unknown Myelocytes # (Manual) 0.32 K/uL (0-0) H 07/23/21 Unknown Polychromasia 1+ 07/23/21 Unknown Sodium 140 mmol/L (136-145) 07/23/21 Unknown Potassium 4.8 mmol/L (3.5-5.1) 07/23/21 Unknown Chloride 102 mmol/L (98-107) 07/23/21 Unknown Carbon Dioxide 28 mmol/L (21-32) 07/23/21 Unknown Anion Gap 10 (3-11) 07/23/21 Unknown BUN 45 mg/dl (6-23) H 07/23/21 Unknown Creatinine 1.91 mg/dl (0.6-1.2) H 07/23/21 Unknown Est Cr Clr Drug Dosing 29.4 ml/min 07/23/21 Unknown Est GFR ( Amer) 29.0 ml/min 07/23/21 Unknown Est GFR (Non-Af Amer) 25.0 ml/min 07/23/21 Unknown BUN/Creatinine Ratio 23.6 (10-20) H 07/23/21 Unknown Glucose 145 mg/dl (70-99(Fasting)) H 07/23/21 Unknown Lactate 3.2 mmol/L (0.4-2.0) H* 07/23/21 17:20 Calcium 10.3 mg/dl (8.5-10.1) H 07/23/21 Unknown Total Bilirubin 0.8 mg/dl (0.2-1.0) 07/23/21 Unknown AST 11 U/L (13-39) L 07/23/21 Unknown ALT 31 U/L (7-52) 07/23/21 Unknown Alkaline Phosphatase 52 U/L (34-104) 07/23/21 Unknown Total Protein 5.5 gm/dl (6.0-8.3) L 07/23/21 Unknown Albumin 3.4 gm/dl (3.4-5.0) 07/23/21 Unknown Globulin 2.1 gm/dl (2.5-4.0) L 07/23/21 Unknown Albumin/Globulin Ratio 1.6 (0.9-2) 07/23/21 Unknown Lipase 12 U/L (11-82) 07/23/21 Unknown Urine Color Yellow 07/23/21 21:56 Urine Appearance Clear (Clear) 07/23/21 21:56 Urine pH >= 9.0 (4.5-7.5) H 07/23/21 21:56 Ur Specific [place] 1.017 (1.000-1.030) 07/23/21 21:56 Urine Protein Trace (Negative) H 07/23/21 21:56 Urine Glucose (UA) Negative (Negative) 07/23/21 21:56 Urine Ketones Negative (Negative) 07/23/21 21:56 Urine Blood Negative (Negative) 07/23/21 21:56 Urine Nitrite Positive (Negative) A 07/23/21 21:56 Urine Bilirubin Negative (Negative) 07/23/21 21:56 Urine Urobilinogen Negative (Negative) 07/23/21 21:56 Ur Leukocyte Esterase Trace (Negative) H 07/23/21 21:56 Urine WBC (Auto) >30 /hpf (0-5) H 07/23/21 21:56 Urine RBC (Auto) 5-10 /hpf (0-4) H 07/23/21 21:56 U Hyaline Cast (Auto) 1-5 /lpf (0-5) 07/23/21 21:56 U Epithel Cells (Auto) 0-5 /lpf (0-5) 07/23/21 21:56 Urine Bacteria (Auto) 4+ (Negative) H 07/23/21 21:56 SARS-CoV-2, RNA, NAAT NEGATIVE (NEGATIVE) 07/23/21 19:09 Impressions Abdomen/Pelvis CT 07/23/21 15:39 CT abd pelvis wo con CLINICAL HISTORY: acute lower abd pain, ?perf ?divertic TECHNIQUE: Helical axial images of the abdomen and pelvis were obtained. Automated dose lowering techniques and/or adjustment according to patient size were utilized for this exam. This exam was performed without intravenous contrast. COMPARISON: Comparison is made to CT abdomen pelvis 09/15/2010 FINDINGS: Lower chest: Bibasilar atelectasis versus scarring is seen. Liver: Unremarkable. No focal lesions are seen. Gallbladder and biliary tree: No calcified gallstones. Normal caliber wall. No intra- or extrahepatic biliary ductal dilation. Pancreas: Unremarkable, no focal lesions. Spleen: Unremarkable. Adrenals: Unremarkable. Kidneys and ureters: Parapelvic cysts are seen bilaterally. Bladder: Unremarkable. Reproductive organs: Unremarkable. Bowel: There is thickening of the rectal wall and the rectum is under distended. Scattered diverticula are seen without evidence of wall thickening or fat stranding. Lymph nodes Retroperitoneal: Unremarkable. Mesenteric: Unremarkable. Pelvic: Unremarkable. Peritoneum: Normal. Vessels: Atherosclerotic calcifications are seen. Abdominal wall: Patient is status post multiple ventral hernia repairs. A fat-containing umbilical hernia remains. Bones: Degenerative changes in the visualized spine. IMPRESSION: Rectal wall thickening is seen, which may be nonspecific secondary to underdistention, however proctitis cannot be entirely excluded. No evidence of diverticulitis or perforation is seen. ACT 112: Negative or not required by law. Electronically signed by: Srinivasan Sandoval M.D. 07/23/2021 4:27 PM Mesenteric US 07/23/21 20:01 US duplex mesenteric HISTORY: 76 years-old Female extreme abdominal pain, GORDY acute generalized abdominal pain with acute kidney injury COMPARISON: CT abdomen and pelvis of same day TECHNIQUE: Multiple real-time sonographic images of the abdominal aorta and mesenteric vessels were obtained assessing grayscale appearance, color and spec tral flow FINDINGS: [Velocities within the atherosclerotic aorta measures up to 55 cm/s, within the celiac artery measures 220 cm/s. With inspiration measures 124 cm/s. Within the superior mesenteric artery measures up to 168 cm/s and within the inferior mesenteric artery measures up to 119 cm/s. No mesenteric or arterial occlusion. Cholelithiasis incidentally noted. IMPRESSION: Elevated peak systolic velocities within the celiac artery are suggestive of arterial stenosis. ACT 112: Negative or not required by law. The above report was generated using voice recognition software. It may contain grammatical, syntax or spelling errors. Electronically signed by: Kevin Diaz M.D. 07/23/2021 9:22 PM Code Status & VTE Plan Code Status Full code VTE Prophylaxis Plan VTE Prophylaxis will be ordered: Yes PG Care Time/CCT Total # of Minutes Spent Total Time Spent with Patient: Total time spent is greater than 50% in coordination of care (as documented) at patient's floor/unit and/or counseling patient: Coding Level of Care Code 64028 Initial Inpt Care Lvl 3 Diagnoses Celiac artery stenosis I77.1 Abdominal pain, acute, bilateral lower quadrant R10.31; R10.32 Acute proctitis K62.89 Rheumatoid arthritis M06.9 GERD (gastroesophageal reflux disease) K21.9 Esophagitis presence: without esophagitis Obstructive sleep apnea G47.33 Diabetes mellitus, type 2 E11.22; N18.31 Diabetes mellitus senior living insulin use: without body and frame technician use Diabetes mellitus complication status: with kidney complications Diabetes mellitus complication detail: with chronic kidney disease Chronic kidney disease stage: stage 3 (moderate) Chronic kidney disease stage 3 subtype: stage 3a (GFR 45-59) Hypertension I10 Hypertension type: unspecified Paroxysmal atrial fibrillation I48.0 Acute kidney injury superimposed on CKD N17.9; N18.9 (1) GERD (gastroesophageal reflux disease) Esophagitis presence: without esophagitis Qualified Code(s): K21.9 - Gastro- esophageal reflux disease without esophagitis (2) Diabetes mellitus, type 2 Diabetes mellitus senior living insulin use: without body and frame technician use Diabetes mellitus complication status: with kidney complications Diabetes mellitus complication detail: with chronic kidney disease Chronic kidney disease stage: stage 3 (moderate) Chronic kidney disease stage 3 subtype: stage 3a (GFR 45-59) Qualified Code(s): E11.22 - Type 2 diabetes mellitus with diabetic chronic kidney disease; N18.31 - Chronic kidney disease, stage 3a (3) Hypertension Hypertension type: unspecified Qualified Code(s): I10 - Essential (primary) hypertension
[2021-07-23 22:59] LABS: Appearance Urine Clear (Clear); Bacteria Urine Automated 4+ (Negative); Bilirubin Urine Negative (Negative); Blood Urine Negative (Negative); Color Urine Yellow; Epithelial Cell Urine Auto 0-5 /lpf (0-5); Glucose Urine UA Negative (Negative); Ketones Urine Negative (Negative); Leukocyte Esterase Urine Trace (Negative); Nitrite Urine Positive (Negative); Specific Gravity Urine 1.017 (1.000-1.030); Urobilinogen Urine Negative (Negative); WBC Urine Automated >30 /hpf (0-5); pH Urine >= 9.0 (4.5-7.5)
[2021-07-23 23:35] LABS: Protein Urine Trace (Negative)
[2021-07-24] MEDS: SODIUM CHLORIDE 0.9% 1000ML 1,000 ML IV SCH ×2 (01:28→10:34)
[2021-07-24] MEDS: ACETAMINOPHEN 325 MG TAB PO PRN ×4 (01:33→18:40)
[2021-07-24 08:12] LABS: Basophils # (auto) 0.02 K/uL (0-0.2); Basophils % (auto) 0.3 %; Eosinophils # (auto) 0.07 K/uL (0-0.5); Eosinophils % (auto) 0.9 %; Hematocrit (blood only) 33.9 % (37-47); Hemoglobin 11.1 g/dL (12.0-16.0); Immature Granulocytes # (auto) 0.37 K/uL (0.00-0.02); Immature Granulocytes % (auto) 4.8 %; Lymphocytes # (auto) 0.64 K/uL (1.2-3.4); Lymphocytes % (auto) 8.2 %; Mean Corpuscular Hemoglobin 30.7 pg (25-34); Mean Corpuscular Hgb Conc 32.7 g/dL (32-36); Mean Corpuscular Volume 93.6 fL (80-100); Mean Platelet Volume 9.3 fL (7.4-10.4); Monocytes # (auto) 0.29 K/uL (0.11-0.59); Monocytes % (auto) 3.7 %; Neutrophils # (auto) 6.38 K/uL (1.4-6.5); Neutrophils % (auto) 82.1 %; Platelet Count 146 K/uL (130-400); RDW Coefficient of Variation 19.1 % (11.5-14.5); RDW Standard Deviation 63.8 fL (36.4-46.3); Red Blood Count 3.62 M/uL (4.2-5.4); White Blood Count 7.77 K/uL (4.8-10.8)
[2021-07-24 08:44] LABS: Albumin Globulin Ratio 1.7 (0.9-2); Albumin Level 3.1 gm/dl (3.4-5.0); BUN Creatinine Ratio 21.9 (10-20); Bilirubin,Total 0.8 mg/dl (0.2-1.0); Calcium 9.1 mg/dl (8.5-10.1); Creatinine Clr Calc Pharmacy 31.3 ml/min; Est GFR (African American) 31.6 ml/min; Est GFR (Non-African American) 27.2 ml/min; Globulin 1.8 gm/dl (2.5-4.0); Potassium 3.8 mmol/L (3.5-5.1); Total Protein 4.9 gm/dl (6.0-8.3)
[2021-07-24] MEDS: AMIODARONE 200 MG TAB PO SCH (10:34)
[2021-07-24] MEDS: FAMOTIDINE 20 MG in SYRINGE 3 ML IV SCH ×2 (10:35→21:41)
--- NOTE | 2021-07-24 10:40 | Gastrointestinal Consultation ---
Date of Consultation July 24, 2021 Assessment & Plan (1) Acute proctitis: 76 year old female with history of rheumatoid arthritis, chronic prednisone use, CKD-III, GERD, hyperlipidemia, lumbar laminectomy, DAVY, T2DM, HTN, atrial fibrillation anticoagulated on Xarelto admitted through the ED with abd pain, increased stool frequency, CT shows proctitis. She notes migratory abd pain x 1 month and change in bowel habits w/ loose stools 3+ times daily or constipation with 2-3 days between BMs. Given proctitis on imaging and report of diarrhea would check stool studies to include c.diff and culture If stool studies are negative would start PO miralax 1 capful daily Can use Bentyl 10 mg three times daily No GI contraindication to diet as tolerated Lactic acid elevation resolved Consider vascular evaluation regarding duplex findings Colonoscopy, timing to be determined, consider inpatient examination if negative stool studies and persistent symptoms Thank you for allowing us to participate in the care of this patient. Please call with any acute changes, questions or concerns. Please see addendum below with additional recommendation from my supervising physician. Supervising Physician Co-Signing Physician Notes Pe - patient sleepy but arousable, right arm with recent bleeding from iv, abd obese soft Labs reviewed imaging reviewed Mesenteric doppler reviewed She denies any blood bowel movements Stool studies including c diff, no signs of ischemic colitis per history or per imaging given celiac artery finding on mesenteric doppler. Agree with further plan of care - likely outpt colonoscopy as she is not having diarrhea per report to me now. History of Present Illness Reason for Consultation: proctitis Requesting Physician: Diogenes Attending Physician: Dennis Shetty MD History of Present Illness 76 year old female with history of rheumatoid arthritis, chronic prednisone use, CKD-III, GERD, hyperlipidemia, lumbar laminectomy, DAVY, T2DM, HTN, atrial fibrillation anticoagulated on Xarelto admitted through the ED with abd pain, increased stool frequency. GI asked to evaluate for proctitis.Pt was seen and evaluated, chart reviewed.Suggests as an OP has been tapering off of high dose PO prednisone for arhritits. Suggests about one month ago started to have generalized abd pain, migratory lower and upper associated with change in bowel habits. Either loose stools 4+ times daily or constipation, with 2-3 days between BMs. Denies black or bloody stools. No UGI symptoms. Denies nausea,vomiting, GERD. Tolerating PO well. No fever, chills, CP, SOB. Today she is feeling well and is presently denying any GI symptoms. CTAP 2021: Rectal wall thickening is seen, which may be nonspecific secondary to underdistention, however proctitis cannot be entirely excluded. No evidence of diverticulitis or perforation is seen. Mesenteric Duplex 2021: Elevated peak systolic velocities within the celiac artery are suggestive of arterial stenosis. EGD/Colonoscopy: she notes colonoscopy 10-15 years ago but i was unable to locate a record of this Allergies Allergy/AdvReac Type Severity Reaction Status Date / Time Iodinated Contrast Media Allergy Intermediate Foot rash, Verified 07/23/21 15:09 swelling Sulfa (Sulfonamide Allergy Mild Rash, Verified 07/23/21 15:09 Antibiotics) itching sulfamethoxazole Allergy Mild Rash, Verified 07/23/21 15:09 itching prednisone AdvReac Mild Redness of Verified 07/23/21 15:09 Skin/SORES Home Medications Medication Instructions Recorded Confirmed Type calcium carbonate 600 mg-vitamin 1 tab PO QAM 01/25/20 07/23/21 History D3 10 mcg (400 unit) tablet (Calcium 600 + D(3)) potassium gluconate 595 mg (99 mg) 99 mg PO QAM 01/25/20 07/23/21 History tablet acetaminophen 500 mg tablet 500 - 1,000 mg PO Q6H PRN 05/16/20 07/23/21 History rivaroxaban 20 mg tablet (Xarelto) 20 mg PO DAILY #90 tab 05/16/21 07/23/21 Rx zinc gluconate 50 mg tablet 50 mg PO DAILY 06/04/21 07/23/21 History folic acid 1 mg tablet 1 mg PO DAILY #90 tab 06/05/21 07/23/21 Rx hydrochlorothiazide 25 mg tablet 25 mg PO DAILY #90 tab 06/05/21 07/23/21 Rx lisinopril 10 mg tablet 10 mg PO DAILY #90 tab 06/11/21 07/23/21 Rx amiodarone 200 mg tablet 200 mg PO DAILY #90 tab 07/01/21 07/23/21 Rx cholecalciferol (vitamin D3) 25 25 mcg PO DAILY 07/23/21 07/23/21 History mcg (1,000 unit) capsule (Vitamin D3) metformin 500 mg tablet,extended 500 mg PO QDD 07/23/21 07/23/21 History release 24 hr methotrexate sodium 2.5 mg tablet 15 mg PO WK 07/23/21 07/23/21 History prednisone 20 mg tablet 20 mg PO QAM 07/23/21 07/23/21 History prednisone 5 mg tablet 17.5 mg PO QPM 07/23/21 07/23/21 History Patient History Medical History Chronic shoulder pain Diabetes mellitus, type 2 Glaucoma Hypertension Morbid obesity Paroxysmal atrial fibrillation PMR (polymyalgia rheumatica) Sleep apnea Surgical History Cyst H/O colonoscopy History of ankle surgery History of carpal tunnel release History of hernia repair History of knee replacement procedure of right knee History of laminectomy History of left knee replacement History of lumpectomy of left breast History of revision of total knee arthroplasty History of surgical procedure on eye proper using laser History of tooth extraction Hx of hysterectomy Hx of left cataract extraction Hx of right cataract extraction Family History Sister Breast cancer Father Heart disease Other No family history of adverse response to anesthesia Denies family history of Ovarian cancer Prostate cancer Myocardial infarction Lung cancer Colorectal cancer Social History Smoking Status: Former smoker Age Started Using Tobacco: 5; Age Quit Using Tobacco: 25; packs per day: 1; Years Smoked: 24; Second Hand Exposure: No; Tobacco Cessation Education Requested by Patient: No Hx Alcohol Use: No Hx Substance Use: No Preferred Language: Samoan Communication Ability: Effective Visual Impairment: Limited Hearing Ability: Normal Hotel Desk Clerk Required: No Beliefs That Will Affect Care: None marital status: Current Living Situation: Spouse current occupational status: retired How many Children do You have: 5 Other Information That Helps Us Care for You: No Feels Safe at Home: Yes Safety Concerns: Feels Safe At This Time Childhood Exposure to Second-Hand Smoke: Yes caffeine: No during the past year weight has: decreased > 10 lbs Dental Care, Regularly: No Physical Activity Frequency: Does not Exercise Seatbelt Use: always Sunscreen Use: No Do you think of yourself as: straight/heterosexual Gender Identity: Female Assistive Devices: Walker Assistive Devices Comment: Reports that she has not used CPAP in about a year Review of Systems Review of Systems: All systems reviewed & are unremarkable except as noted in HPI & below Physical Exam Constitutional: WD/WN, vitals as above Neck: trachea midline, no thyromegaly Respiratory: normal respiratory effort, lungs clear to auscultation Cardiovascular: Rate/Rhythm: regular rate and regular rhythm Gastrointestinal (Abdomen): normal bowel sounds, soft, nontender, no hepatospl enomegaly Skin: no rashes, warm and dry Results & Data ([facility]) Vital Signs (Past 12 Hours) Vital Signs Temp Pulse Resp BP Pulse Ox Pulse Ox 07/24/21 07:33 36.9 C 70 18 112/70 92 07/24/21 03:38 36.9 C 71 16 125/66 92 07/24/21 00:47 37.1 C 65 18 124/78 97 07/24/21 00:20 37.1 C 65 18 124/78 97 97 Laboratory Results 07/24/21 07/24/21 07/24/21 Range/Units 08:01 07:31 07:31 WBC 7.77 (4.8-10.8) K/uL RBC 3.62 L (4.2-5.4) M/uL Hgb 11.1 L (12.0-16.0) g/dL Hct 33.9 L (37-47) % MCV 93.6 (80-100) fL MCH 30.7 (25-34) pg MCHC 32.7 (32-36) g/dL RDW Std Deviation 63.8 H (36.4-46.3) fL RDW Coeff of Tiffany 19.1 H (11.5-14.5) % Plt Count 146 (130-400) K/uL MPV 9.3 (7.4-10.4) fL Immature Gran % (Auto) 4.8 % Neut % (Auto) 82.1 % Lymph % (Auto) 8.2 % Latimer % (Auto) 3.7 % Eos % (Auto) 0.9 % Baso % (Auto) 0.3 % Neut # (Auto) 6.38 (1.4-6.5) K/uL Lymph # (Auto) 0.64 L (1.2-3.4) K/uL Latimer # (Auto) 0.29 (0.11-0.59) K/uL Eos # (Auto) 0.07 (0-0.5) K/uL Baso # (Auto) 0.02 (0-0.2) K/uL Immature Gran # (Auto) 0.37 H (0.00-0.02) K/uL Absolute Nucleated RBC (0-0) K/uL Nucleated RBC % (auto) % Neutrophils % (Manual) % Lymphocytes % (Manual) % Monocytes % (Manual) % Myelocytes % (Man) % Neutrophils # (Manual) (1.4-6.5) K/uL Total Absolute Neuts (1.4-6.5) K/uL Lymphocytes # (Manual) (1.2-3.4) K/uL Total Abs Lymphocytes (1.2-3.4) K/uL Monocytes # (Manual) (0.11-0.59) K/uL Myelocytes # (Manual) (0-0) K/uL Polychromasia Sodium 140 (136-145) mmol/L Potassium 3.8 D (3.5-5.1) mmol/L Chloride 106 (98-107) mmol/L Carbon Dioxide 29 (21-32) mmol/L Anion Gap 5 (3-11) BUN 39 H (6-23) mg/dl Creatinine 1.78 H (0.6-1.2) mg/dl Est Cr Clr Drug Dosing 31.3 ml/min Est GFR ( Amer) 31.6 ml/min Est GFR (Non-Af Amer) 27.2 ml/min BUN/Creatinine Ratio 21.9 H (10-20) Glucose 70 (70-99(Fasting)) mg/dl Lactate 1.6 (0.4-2.0) mmol/L Calcium 9.1 (8.5-10.1) mg/dl Total Bilirubin 0.8 (0.2-1.0) mg/dl AST 12 L (13-39) U/L ALT 26 (7-52) U/L Alkaline Phosphatase 49 (34-104) U/L Total Protein 4.9 L (6.0-8.3) gm/dl Albumin 3.1 L (3.4-5.0) gm/dl Globulin 1.8 L (2.5-4.0) gm/dl Albumin/Globulin Ratio 1.7 (0.9-2) Lipase (11-82) U/L Urine Color Urine Appearance (Clear) Urine pH (4.5-7.5) Ur Specific [place] (1.000-1.030) Urine Protein (Negative) Urine Glucose (UA) (Negative) Urine Ketones (Negative) Urine Blood (Negative) Urine Nitrite (Negative) Urine Bilirubin (Negative) Urine Urobilinogen (Negative) Ur Leukocyte Esterase (Negative) Urine WBC (Auto) (0-5) /hpf Urine RBC (Auto) (0-4) /hpf U Hyaline Cast (Auto) (0-5) /lpf U Epithel Cells (Auto) (0-5) /lpf Urine Bacteria (Auto) (Negative) SARS-CoV-2, RNA, NAAT (NEGATIVE) 07/23/21 07/23/21 07/23/21 Range/Units Unknown Unknown 21:56 WBC 9.03 (4.8-10.8) K/uL RBC 3.85 L (4.2-5.4) M/uL Hgb 11.9 L (12.0-16.0) g/dL Hct 36.3 L (37-47) % MCV 94.3 (80-100) fL MCH 30.9 (25-34) pg MCHC 32.8 (32-36) g/dL RDW Std Deviation 62.6 H (36.4-46.3) fL RDW Coeff of Tiffany 18.7 H (11.5-14.5) % Plt Count 178 (130-400) K/uL MPV 9.5 (7.4-10.4) fL Immature Gran % (Auto) % Neut % (Auto) % Lymph % (Auto) % Latimer % (Auto) % Eos % (Auto) % Baso % (Auto) % Neut # (Auto) (1.4-6.5) K/uL Lymph # (Auto) (1.2-3.4) K/uL Latimer # (Auto) (0.11-0.59) K/uL Eos # (Auto) (0-0.5) K/uL Baso # (Auto) (0-0.2) K/uL Immature Gran # (Auto) (0.00-0.02) K/uL Absolute Nucleated RBC 0.03 H (0-0) K/uL Nucleated RBC % (auto) 0.3 % Neutrophils % (Manual) 93.0 % Lymphocytes % (Manual) 2.6 % Monocytes % (Manual) 0.9 % Myelocytes % (Man) 3.5 % Neutrophils # (Manual) 8.40 H (1.4-6.5) K/uL Total Absolute Neuts 8.40 H (1.4-6.5) K/uL Lymphocytes # (Manual) 0.23 L (1.2-3.4) K/uL Total Abs Lymphocytes 0.23 L (1.2-3.4) K/uL Monocytes # (Manual) 0.08 L (0.11-0.59) K/uL Myelocytes # (Manual) 0.32 H (0-0) K/uL Polychromasia 1+ Sodium 140 (136-145) mmol/L Potassium 4.8 (3.5-5.1) mmol/L Chloride 102 (98-107) mmol/L Carbon Dioxide 28 (21-32) mmol/L Anion Gap 10 (3-11) BUN 45 H (6-23) mg/dl Creatinine 1.91 H (0.6-1.2) mg/dl Est Cr Clr Drug Dosing 29.4 ml/min Est GFR ( Amer) 29.0 ml/min Est GFR (Non-Af Amer) 25.0 ml/min BUN/Creatinine Ratio 23.6 H (10-20) Glucose 145 H (70-99(Fasting)) mg/dl Lactate (0.4-2.0) mmol/L Calcium 10.3 H (8.5-10.1) mg/dl Total Bilirubin 0.8 (0.2-1.0) mg/dl AST 11 L (13-39) U/L ALT 31 (7-52) U/L Alkaline Phosphatase 52 (34-104) U/L Total Protein 5.5 L (6.0-8.3) gm/dl Albumin 3.4 (3.4-5.0) gm/dl Globulin 2.1 L (2.5-4.0) gm/dl Albumin/Globulin Ratio 1.6 (0.9-2) Lipase 12 (11-82) U/L Urine Color Yellow Urine Appearance Clear (Clear) Urine pH >= 9.0 H (4.5-7.5) Ur Specific [place] 1.017 (1.000-1.030) Urine Protein Trace H (Negative) Urine Glucose (UA) Negative (Negative) Urine Ketones Negative (Negative) Urine Blood Negative (Negative) Urine Nitrite Positive A (Negative) Urine Bilirubin Negative (Negative) Urine Urobilinogen Negative (Negative) Ur Leukocyte Esterase Trace H (Negative) Urine WBC (Auto) >30 H (0-5) /hpf Urine RBC (Auto) 5-10 H (0-4) /hpf U Hyaline Cast (Auto) 1-5 (0-5) /lpf U Epithel Cells (Auto) 0-5 (0-5) /lpf Urine Bacteria (Auto) 4+ H (Negative) SARS-CoV-2, RNA, NAAT (NEGATIVE) 07/23/21 07/23/21 Range/Units 19:09 17:20 WBC (4.8-10.8) K/uL RBC (4.2-5.4) M/uL Hgb (12.0-16.0) g/dL Hct (37-47) % MCV (80-100) fL MCH (25-34) pg MCHC (32-36) g/dL RDW Std Deviation (36.4-46.3) fL RDW Coeff of Tiffany (11.5-14.5) % Plt Count (130-400) K/uL MPV (7.4-10.4) fL Immature Gran % (Auto) % Neut % (Auto) % Lymph % (Auto) % Latimer % (Auto) % Eos % (Auto) % Baso % (Auto) % Neut # (Auto) (1.4-6.5) K/uL Lymph # (Auto) (1.2-3.4) K/uL Latimer # (Auto) (0.11-0.59) K/uL Eos # (Auto) (0-0.5) K/uL Baso # (Auto) (0-0.2) K/uL Immature Gran # (Auto) (0.00-0.02) K/uL Absolute Nucleated RBC (0-0) K/uL Nucleated RBC % (auto) % Neutrophils % (Manual) % Lymphocytes % (Manual) % Monocytes % (Manual) % Myelocytes % (Man) % Neutrophils # (Manual) (1.4-6.5) K/uL Total Absolute Neuts (1.4-6.5) K/uL Lymphocytes # (Manual) (1.2-3.4) K/uL Total Abs Lymphocytes (1.2-3.4) K/uL Monocytes # (Manual) (0.11-0.59) K/uL Myelocytes # (Manual) (0-0) K/uL Polychromasia Sodium (136-145) mmol/L Potassium (3.5-5.1) mmol/L Chloride (98-107) mmol/L Carbon Dioxide (21-32) mmol/L Anion Gap (3-11) BUN (6-23) mg/dl Creatinine (0.6-1.2) mg/dl Est Cr Clr Drug Dosing ml/min Est GFR ( Amer) ml/min Est GFR (Non-Af Amer) ml/min BUN/Creatinine Ratio (10-20) Glucose (70-99(Fasting)) mg/dl Lactate 3.2 H* (0.4-2.0) mmol/L Calcium (8.5-10.1) mg/dl Total Bilirubin (0.2-1.0) mg/dl AST (13-39) U/L ALT (7-52) U/L Alkaline Phosphatase (34-104) U/L Total Protein (6.0-8.3) gm/dl Albumin (3.4-5.0) gm/dl Globulin (2.5-4.0) gm/dl Albumin/Globulin Ratio (0.9-2) Lipase (11-82) U/L Urine Color Urine Appearance (Clear) Urine pH (4.5-7.5) Ur Specific [place] (1.000-1.030) Urine Protein (Negative) Urine Glucose (UA) (Negative) Urine Ketones (Negative) Urine Blood (Negative) Urine Nitrite (Negative) Urine Bilirubin (Negative) Urine Urobilinogen (Negative) Ur Leukocyte Esterase (Negative) Urine WBC (Auto) (0-5) /hpf Urine RBC (Auto) (0-4) /hpf U Hyaline Cast (Auto) (0-5) /lpf U Epithel Cells (Auto) (0-5) /lpf Urine Bacteria (Auto) (Negative) SARS-CoV-2, RNA, NAAT NEGATIVE (NEGATIVE)
[2021-07-24] MEDS ORDERED: DICLOFENAC SOD 1% GEL 100 GM TUBE EXT SCH (12:00)
[2021-07-24] MEDS: CAPSAICIN CR 0.075% 60 GM TUBE EXT SCH ×3 (13:26→21:42)
--- NOTE | 2021-07-24 17:12 | Hospitalist Progress Note ---
Date of Service July 24, 2021 Assessment & Plan (1) Acute proctitis: Plan: Acute proctitis/acute lower quadrant abdominal pain Pain improved today CTA/P: Rectal wall thickening is seen, which may be nonspecific secondary to underdistention, however proctitis cannot be entirely excluded. No evidence of diverticulitis or perforation is seen. Mesenteric ultrasound:Elevated peak systolic velocities in the celiac artery suggestive of stenosis, no mesenteric or arterial occlusion appreciated GI consulted. Recommend stool studies with C. difficile and culture, if negative MiraLAX 1 capful daily and Bentyl 10 mg 3 times daily. May resume diet. Lactate resolved, no signs of ongoing mesenteric ischemia. In ER patient with rigors and severe abdominal pain during exam. Received Cipro/Flagyl in ER and was admitted on ertapenem Stool panel pending Anticipate outpatient colonoscopy if continues to do well Patient at risk for mesenteric ischemia with celiac artery stenosis as above, although no acute occlusion -Lactate resolved - NO leukocytosis/fever today (2) Celiac artery stenosis: Plan: Noted on Dopplers as above, no acute occlusion Pending discussion with vascular as above (3) Abdominal pain, acute, bilateral lower quadrant: Plan: See above (4) Acute kidney injury superimposed on CKD: Plan: - Creatinine 1.91 upon admission, with base 1.13 Creatinine downtrending to 1.78, not yet normalized Continue proctitis treatment as above, p.o. resumed (5) Paroxysmal atrial fibrillation: Plan: Paroxysmal atrial fibrillation/hypertension- Hold lisinopril, HCTZ. Blood pressure adequate control today. Continue Xarelto Continue Amio (6) Rheumatoid arthritis: Plan: Patient has been on methotrexate and chronic prednisone use for several months Pred held on admission, ?underlying steroid dependence. Resumed MTX held for GI eval/potential infection as above (7) GERD (gastroesophageal reflux disease): Plan: Place on famotidine 20 mg IV every 12 hours (8) Obstructive sleep apnea: Plan: CPAP at bedtime as needed (9) Diabetes mellitus, type 2: Plan: Hold Metformin Glucose checks AC/at bedtime SSI Last A1c well controlled (10) Hypertension: Plan: See above Admission and Anticipated Discharge Date Admission Date: July 23, 2021 Subjective But he seen the bedside this morning. She reports that her abdominal pain is improved and nearly resolved today, but does have some neck and back pain. No bowel movements yet today. Has peed today, no dysuria. Denies fever, chills, sweats. Denies bloody bowel movements overnight. Review of Systems Review of Systems: All systems reviewed & are unremarkable except as noted in Subjective Physical Exam Physical Exam: General: A&Ox3. NAD. Cooperative. HEENT: Atraumatic, normocephalic. Vision and hearing grossly intact. Slight tenderness overlying muscles of right neck, right clavicle without crepitus. Pulm: CTAB A&P. -wheezes, -rales, -rhonchi. Symmetrical chest rise. No increase in work of breathing. No respiratory distress. Cardiac: RRR, -mrg. Radial pulses intact and symmetrical. Abdominal: Nontender, nondistended, soft. BS present. Extremities: Bilateral distal mild pitting edema. Pressure area on right anterior valdez and Ulcer on left anterior valdez with Aquacel dressing intact. Results & Data Results & Data ([facility]) Vital Signs (Past 12 Hours) Vital Signs Temp Pulse Pulse Resp BP Pulse Ox 07/24/21 15:51 36.9 C 78 18 112/68 90 07/24/21 15:45 84 07/24/21 11:47 36.9 C 71 18 109/65 92 07/24/21 09:00 69 07/24/21 07:33 36.9 C 70 18 112/70 92 PG Care Time/CCT Total # of Minutes Spent Total Time Spent with Patient: Total time spent is greater than 50% in coordination of care (as documented) at patient's floor/unit and/or counseling patient: Coding Level of Care Code 74365 Subseq Hosp Care Lvl 3 Diagnoses Acute proctitis K62.89 Celiac artery stenosis I77.1 Abdominal pain, acute, bilateral lower quadrant R10.31; R10.32 Acute kidney injury superimposed on CKD N17.9; N18.9 Paroxysmal atrial fibrillation I48.0 Rheumatoid arthritis M06.9 GERD (gastroesophageal reflux disease) K21.9 Esophagitis presence: without esophagitis Obstructive sleep apnea G47.33 Diabetes mellitus, type 2 E11.22; N18.31 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 mellitus 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 treater 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 use: without termite treater helper use Diabetes mellitus complication status: with kidney complications Diabetes mellitus complication detail: with chronic kidney disease Chronic kidney disease stage: stage 3 (moderate) Chronic kidney disease stage 3 subtype: stage 3a (GFR 45-59) Hypertension I10 Hypertension type: unspecified (1) GERD (gastroesophageal reflux disease) Esophagitis presence: without esophagitis Qualified Code(s): K21.9 - Gastro- esophageal reflux disease without esophagitis (2) Diabetes mellitus, type 2 Diabetes mellitus group home insulin use: without group home use Diabetes mellitus complication status: with kidney complications Diabetes mellitus complication detail: with chronic kidney disease Chronic kidney disease stage: stage 3 (moderate) Chronic kidney disease stage 3 subtype: stage 3a (GFR 45-59) Qualified Code(s): E11.22 - Type 2 diabetes mellitus with diabetic chronic kidney disease; N18.31 - Chronic kidney disease, stage 3a (3) Hypertension Hypertension type: unspecified Qualified Code(s): I10 - Essential (primary) hypertension
[2021-07-24] MEDS ORDERED: GLUCOSE 40% GEL 15 GM TUBE PO PRN (17:19)
[2021-07-24] MEDS ORDERED: DEXTROSE 50% 50 ML SYRINGE IV PRN (17:19)
[2021-07-24] MEDS ORDERED: CARBOHYDRATES FOR HYPOGLYCEMIA PO PRN (17:19)
[2021-07-24] MEDS ORDERED: GLUCAGON FOR INJ 1 MG VIAL SQ PRN (17:19)
[2021-07-24] MEDS ORDERED: GLUCOSE 10 TABS/TUBE PO PRN (17:19)
[2021-07-24] MEDS ORDERED: MoRPHine SULFATE 2 MG/ML CARP IV STA (21:03)
[2021-07-24] MEDS: ERTAPENEM SODIUM 1,000 MG in SYRINGE 0 ML IV SCH (21:41)
[2021-07-24] MEDS: ONDANSETRON INJ 2 MG/ML 2 ML VIAL IV PRN (22:06)
[2021-07-24] MEDS: RIVAROXABAN 15 MG TAB PO SCH (22:51)
[2021-07-24] MEDS: predniSONE 5 MG TAB PO SCH (22:52)
[2021-07-24] MEDS: INSULIN ASPART PER UNIT SC SCH (23:01)
--- NOTE | 2021-07-25 06:14 | Electrocardiogram Report ---
Test Reason : Blood Pressure : / mmHG Vent. Rate : 074 BPM Atrial Rate : 074 BPM P-R Int : 152 ms QRS Dur : 070 ms QT Int : 406 ms P-R-T Axes : 081 -02 044 degrees QTc Int : 450 ms Normal sinus rhythm Normal ECG When compared with ECG of 12-NOV-2020 05:29, No significant change was found Confirmed by Noman Leon ([id number]) on 07/25/2021 6:14:09 AM Referred By: REFERRED SELF Confirmed By:Noman Leon
[2021-07-25 07:01] LABS: Hematocrit (blood only) 34.3 % (37-47); Hemoglobin 11.3 g/dL (12.0-16.0); Mean Corpuscular Hgb Conc 32.9 g/dL (32-36); Mean Platelet Volume 8.9 fL (7.4-10.4); Platelet Count 123 K/uL (130-400); RDW Coefficient of Variation 19.3 % (11.5-14.5); Red Blood Count 3.65 M/uL (4.2-5.4); White Blood Count 7.31 K/uL (4.8-10.8)
[2021-07-25 07:47] LABS: Albumin Globulin Ratio 1.5 (0.9-2); Albumin Level 2.9 gm/dl (3.4-5.0); BUN Creatinine Ratio 20.8 (10-20); Bilirubin,Total 0.8 mg/dl (0.2-1.0); Calcium 8.4 mg/dl (8.5-10.1); Creatinine Clr Calc Pharmacy 33.3 ml/min; Est GFR (African American) 33.8 ml/min; Est GFR (Non-African American) 29.2 ml/min; Potassium 4.2 mmol/L (3.5-5.1); Total Protein 4.9 gm/dl (6.0-8.3)
--- NOTE | 2021-07-25 08:37 | Gastroenterology Progress Note ---
Date of Service July 25, 2021 Assessment & Plan (1) Acute proctitis: Plan: 76 year old female with history of rheumatoid arthritis, chronic prednisone use, CKD-III, GERD, hyperlipidemia, lumbar laminectomy, DAVY, T2DM, HTN, atrial fibrillation anticoagulated on Xarelto admitted through the ED with abd pain, increased stool frequency, CT shows proctitis. She notes migratory abd pain x 1 month and change in bowel habits w/ loose stools 3+ times daily or constipation with 2-3 days between BMs. Given proctitis on imaging and report of diarrhea would check stool studies to include c.diff and culture If stool studies are negative would start PO miralax 1 capful daily Can use Bentyl 10 mg three times daily No GI contraindication to diet as tolerated Lactic acid elevation resolved Consider vascular evaluation regarding duplex findings Colonoscopy, as outpatient Will sign off. Thank you for allowing us to participate in the care of this patient. Please call with any acute changes, questions or concerns. Please see addendum below with additional recommendation from my supervising physician. Admission and Anticipated Discharge Date Admission Date: July 23, 2021 Supervising Physician Co-Signing Physician Notes I saw and evaluated the patient. We were consulted for altered bowel habits and an irregular imaging study. She notes that her bowel habits almost back to normal. This afternoon her biggest complaint is that she feels quite fatigued. Recommendations Outpatient colonoscopy as previously scheduled Please call with any questions or concerns Subjective Pt was seen and evaluated, chart reviewed. Feeling better No abd pain No BM today reported. Denies black or bloody stools. Review of Systems Review of Systems: All systems reviewed & are unremarkable except as noted in HPI & below Physical Exam Constitutional: WD/WN, vitals as above Neck: trachea midline, no thyromegaly Respiratory: normal respiratory effort, lungs clear to auscultation Cardiovascular: Rate/Rhythm: regular rate and regular rhythm Gastrointestinal (Abdomen): normal bowel sounds, soft, nontender, no hepatosplenomegaly Skin: no rashes, warm and dry Results & Data ([facility]) Vital Signs (Past 12 Hours) Vital Signs Temp Pulse Pulse Resp BP Pulse Ox Pulse Ox 07/25/21 07:31 36.6 C 67 20 115/73 95 07/25/21 07:16 72 07/25/21 03:00 37.3 C 92 H 20 99/58 L 90 07/24/21 23:40 93 07/24/21 23:00 37.0 C 87 20 96/56 L 92
[2021-07-25] MEDS: AMIODARONE 200 MG TAB PO SCH (08:38)
[2021-07-25] MEDS: predniSONE 20 MG TAB PO SCH (08:39)
[2021-07-25] MEDS: CAPSAICIN CR 0.075% 60 GM TUBE EXT SCH ×4 (08:39→21:13)
[2021-07-25] MEDS: RIVAROXABAN 15 MG TAB PO SCH (08:39)
[2021-07-25] MEDS: INSULIN ASPART PER UNIT SC SCH ×4 (08:44→21:12)
[2021-07-25 08:51] LABS: Basophils # (auto) 0.04 K/uL (0-0.2); Basophils % (auto) 0.5 %; Eosinophils # (auto) 0.01 K/uL (0-0.5); Eosinophils % (auto) 0.1 %; Immature Granulocytes # (auto) 0.48 K/uL (0.00-0.02); Immature Granulocytes % (auto) 6.6 %; Lymphocytes # (auto) 0.27 K/uL (1.2-3.4); Lymphocytes % (auto) 3.7 %; Monocytes # (auto) 0.42 K/uL (0.11-0.59); Monocytes % (auto) 5.7 %; Neutrophils # (auto) 6.09 K/uL (1.4-6.5); Neutrophils % (auto) 83.4 %
[2021-07-25] MEDS: FAMOTIDINE 20 MG in SYRINGE 3 ML IV SCH (09:11)
--- NOTE | 2021-07-25 09:51 | Consultation ---
Date of Consultation July 25, 2021 Assessment & Plan (1) Celiac artery stenosis: Pt with mild celiac artery stenosis and patent SMA/ANNIE. Her symptoms are inconsistent with mesenteric ischemia. No indications for vascular surgery intervention at this time. Please call if needed. History of Present Illness Reason for Consultation: celiac art stenosis Attending Physician: Dennis Shetty MD History of Present Illness 76 yo f with hx of DMII, CKD, RA, GERD, hyperlipidemia, lumbar disc disease, DAVY, HTN, PAF, admitted with abd pain, seen in consultation today for celiac art stenosis noted on US. Pt states she has intentionally lost about 80 lbs over the past 1 yr. Pt states has had intermittent abd pains, but they became worse about 2 months ago. Describes pain as sharp and across her mid abd, associated with fecal urgency and relief with BM. States she sometimes has constipation, other times it is diarrhea. Denies changes in eating habits, N/V, abd pain with eating, post prandial pain, fever, chest pain, SOB, rest pain, claudication, other complaints. Mesenteric US demonstrates mild stenosis of celiac artery, and widely patent SMA and ANNIE. Allergies Allergy/AdvReac Type Severity Reaction Status Date / Time Iodinated Contrast Media Allergy Intermediate Foot rash, Verified 07/23/21 15:09 swelling Sulfa (Sulfonamide Allergy Mild Rash, Verified 07/23/21 15:09 Antibiotics) itching sulfamethoxazole Allergy Mild Rash, Verified 07/23/21 15:09 itching Home Medications Medication Instructions Recorded Confirmed Type calcium carbonate 600 mg-vitamin 1 tab PO QAM 01/25/20 07/23/21 History D3 10 mcg (400 unit) tablet (Calcium 600 + D(3)) potassium gluconate 595 mg (99 mg) 99 mg PO QAM 01/25/20 07/23/21 History tablet acetaminophen 500 mg tablet 500 - 1,000 mg PO Q6H PRN 05/16/20 07/23/21 History rivaroxaban 20 mg tablet (Xarelto) 20 mg PO DAILY #90 tab 05/16/21 07/23/21 Rx zinc gluconate 50 mg tablet 50 mg PO DAILY 06/04/21 07/23/21 History folic acid 1 mg tablet 1 mg PO DAILY #90 tab 06/05/21 07/23/21 Rx hydrochlorothiazide 25 mg tablet 25 mg PO DAILY #90 tab 06/05/21 07/23/21 Rx lisinopril 10 mg tablet 10 mg PO DAILY #90 tab 06/11/21 07/23/21 Rx amiodarone 200 mg tablet 200 mg PO DAILY #90 tab 07/01/21 07/23/21 Rx cholecalciferol (vitamin D3) 25 25 mcg PO DAILY 07/23/21 07/23/21 History mcg (1,000 unit) capsule (Vitamin D3) metformin 500 mg tablet,extended 500 mg PO QDD 07/23/21 07/23/21 History release 24 hr methotrexate sodium 2.5 mg tablet 15 mg PO WK 07/23/21 07/23/21 History prednisone 20 mg tablet 20 mg PO QAM 07/23/21 07/23/21 History prednisone 5 mg tablet 17.5 mg PO QPM 07/23/21 07/23/21 History Patient History Medical History Chronic shoulder pain Pain started after CTR > per patient, PCP started her on prednisone for this which she they have been trying to slowly taper off of Diabetes mellitus, type 2 NIDDM Glaucoma Hypertension Morbid obesity Paroxysmal atrial fibrillation on Xarelto PMR (polymyalgia rheumatica) Sleep apnea CPAP Surgical History Cyst Scalp cysts excision (12/12/18): Grade view 1, MAC#3, ETT 7.5 at [facility] H/O colonoscopy History of ankle surgery Right History of carpal tunnel release Right History of hernia repair Laparoscopic hernia x2 History of knee replacement procedure of right knee R/L History of laminectomy Dr. Styles History of left knee replacement + subsequent Left knee I&D poly exchange History of lumpectomy of left breast benign History of revision of total knee arthroplasty R/L History of surgical procedure on eye proper using laser History of tooth extraction Hx of hysterectomy Hx of left cataract extraction Hx of right cataract extraction Family History Sister Breast cancer Father Heart disease Other No family history of adverse response to anesthesia Denies family history of Ovarian cancer Prostate cancer Myocardial infarction Lung cancer Colorectal cancer Social History Smoking Status: Former smoker Age Started Using Tobacco: 5; Age Quit Using Tobacco: 25; packs per day: 1; Years Smoked: 24; Second Hand Exposure: No; Tobacco Cessation Education Requested by Patient: No Hx Alcohol Use: No Hx Substance Use: No Preferred Language: Sammarinese Communication Ability: Effective Visual Impairment: Limited Hearing Ability: Normal Stamp Mounter Required: No Beliefs That Will Affect Care: None marital status: Current Living Situation: Spouse current occupational status: retired How many Children do You have: 5 Other Information That Helps Us Care for You: No Feels Safe at Home: Yes Safety Concerns: Feels Safe At This Time Childhood Exposure to Second-Hand Smoke: Yes caffeine: No during the past year weight has: decreased > 10 lbs Dental Care, Regularly: No Physical Activity Frequency: Does not Exercise Seatbelt Use: always Sunscreen Use: No Do you think of yourself as: straight/heterosexual Gender Identity: Female Assistive Devices: Glasses, Oxygen - Continuous and Walker Assistive Devices Comment: Reports that she has not used CPAP in about a year Review of Systems Review of Systems: All systems reviewed & are unremarkable except as noted in HPI & below Physical Exam Constitutional: WD/WN, vitals as above + obese, healthy appearing, cooperative and comfortable; not in distress ENMT: Ears: no hearing impairment Neck: trachea midline Respiratory: normal respiratory effort, lungs clear to auscultation A uscultation: + diminished lung sounds Cardiovascular: Rate/Rhythm: regular rate and regular rhythm Vessels: femoral pulses present and radial pulses present; + abnormal peripheral pulses Extremities: normal capillary refill and + edema Gastrointestinal (Abdomen): Inspection/Auscultation: abdomen normal to inspection and normal bowel sounds Percussion/Palpation: + abdomen tender (mild general) and abdomen soft Musculoskeletal: no cyanosis or clubbing, extremities motor strength 5/5 Skin: no rashes, warm and dry Neurologic: moves all extremities and awake; no focal motor deficits and not confused Psychiatric: A+Ox3, euthymic affect Results & Data ([facility]) Vital Signs (Past 12 Hours) Vital Signs Temp Pulse Pulse Resp BP Pulse Ox Pulse Ox 07/25/21 07:31 36.6 C 67 20 115/73 95 07/25/21 07:16 72 07/25/21 03:00 37.3 C 92 H 20 99/58 L 90 07/24/21 23:40 93 07/24/21 23:00 37.0 C 87 20 96/56 L 92
--- NOTE | 2021-07-25 10:45 | Hospitalist Progress Note ---
Date of Service July 25, 2021 Assessment & Plan (1) Acute proctitis: Plan: Acute proctitis/acute lower quadrant abdominal pain Pain improved yesterday, worsened today with subjective chills. Pain was not associated with attempted meals. Blood cultures drawn, Rocephin/Flagyl restarted CTA/P: Rectal wall thickening is seen, which may be nonspecific secondary to underdistention, however proctitis cannot be entirely excluded. No evidence of diverticulitis or perforation is seen. Mesenteric ultrasound:Elevated peak systolic velocities in the celiac artery suggestive of stenosis, no mesenteric or arterial occlusion appreciated GI consulted. Recommend stool studies with C. difficile and culture, if negative MiraLAX 1 capful daily and Bentyl 10 mg 3 times daily. May resume diet. Lactate resolved, no signs of ongoing mesenteric ischemia. In ER patient with rigors and severe abdominal pain during exam. Received Cipro/Flagyl in ER and was admitted on ertapenem. This was discontinued as patient had initial resolution of symptoms, then antibiotics resumed as noted above Stool panel for this morning, results pending If patient does well will have outpatient colonoscopy Patient at risk for mesenteric ischemia with celiac artery stenosis as above, although no acute occlusion. No acute indication for vascular intervention, vascular will follow as outpatient -Lactate resolved -CBC daily (2) Celiac artery stenosis: Plan: Noted on Dopplers as above, no acute occlusion Pending discussion with vascular as above (3) Abdominal pain, acute, bilateral lower quadrant: Plan: See above (4) Acute kidney injury superimposed on CKD: Plan: - Creatinine 1.91 upon admission, with base 1.13 Creatinine downtrending, not yet normalized Continue proctitis treatment as above, p.o. resumed (5) Paroxysmal atrial fibrillation: Plan: Paroxysmal atrial fibrillation/hypertension- Hold lisinopril, HCTZ. Blood pressure adequate control today. Continue Xarelto Continue Amio (6) Rheumatoid arthritis: Plan: Patient has been on methotrexate and chronic prednisone use for several months Pred held on admission, ?underlying steroid dependence. Resumed MTX held for GI eval/potential infection as above (7) GERD (gastroesophageal reflux disease): Plan: Place on famotidine 20 mg IV every 12 hours (8) Obstructive sleep apnea: Plan: CPAP at bedtime as needed (9) Diabetes mellitus, type 2: Plan: Hold Metformin Glucose checks AC/at bedtime SSI Last A1c well controlled (10) Hypertension: Plan: See above Admission and Anticipated Discharge Date Admission Date: July 23, 2021 Renan Brooks is seen at the bedside in the morning and then again in the afternoon. Overall was feeling better and had antibiotics discontinued, but has since had a feeling of fevers and chills with return of crampy abdominal pain. Had a bowel movement midday and was able to collect a sample for stool studies which are pending. She denies chest pain, chest pressure, difficulty breathing, shortness of breath. Does feel globally tired. Review of Systems Review of Systems: All systems reviewed & are unremarkable except as noted in Subjective Physical Exam Physical Exam: General: A&Ox3. NAD. Cooperative. Sitting up in chair today at time of visit. HEENT: Atraumatic, normocephalic. Vision and hearing grossly intact. Slight tenderness overlying muscles of right neck, right clavicle without crepitus. Pulm: CTAB A&P. -wheezes, -rales, -rhonchi. Symmetrical chest rise. No increase in work of breathing. No respiratory distress. Cardiac: RRR, -mrg. Radial pulses intact and symmetrical. Abdominal: Diffuse lower mild abdominal tenderness without guarding or rebound, bowel sounds intact. Extremities: Bilateral distal mild pitting edema. Pressure area on right anterior valdez and Ulcer on left anterior valdez with Aquacel dressing intact. Results & Data Results & Data ([facility]) Vital Signs (Past 12 Hours) Vital Signs Temp Pulse Pulse Resp BP Pulse Ox Pulse Ox 07/25/21 07:31 36.6 C 67 20 115/73 95 07/25/21 07:16 72 07/25/21 03:00 37.3 C 92 H 20 99/58 L 90 07/24/21 23:40 93 07/24/21 23:00 37.0 C 87 20 96/56 L 92 PG Care Time/CCT Total # of Minutes Spent Total Time Spent with Patient: Total time spent is greater than 50% in coordination of care (as documented) at patient's floor/unit and/or counseling patient: Coding Level of Care Code 31577 Subseq Hosp Care Lvl 2 Diagnoses Acute proctitis K62.89 Celiac artery stenosis I77.1 Abdominal pain, acute, bilateral lower quadrant R10.31; R10.32 Acute kidney injury superimposed on CKD N17.9; N18.9 Paroxysmal atrial fibrillation I48.0 Rheumatoid arthritis M06.9 GERD (gastroesophageal reflux disease) K21.9 Esophagitis presence: without esophagitis Obstructive sleep apnea G47.33 Diabetes mellitus, type 2 E11.22; N18.31 Chronic kidney disease stage: stage 3 (moderate) Chronic kidney disease stage 3 subtype: stage 3a (GFR 45-59) Diabetes mellitus complication detail: with chronic kidney disease Diabetes mellitus complication status: with kidney complications Diabetes mellitus exterminator helper termite insulin use: without exterminator helper termite use Hypertension I10 Hypertension type: unspecified (1) Diabetes mellitus, type 2 Chronic kidney disease stage: stage 3 (moderate) Chronic kidney disease stage 3 subtype: stage 3a (GFR 45-59) Diabetes mellitus complication detail: with chronic kidney disease Diabetes mellitus complication status: with kidney complications Diabetes mellitus jail insulin use: without exterminator helper termite use Qualified Code(s): E11.22 - Type 2 diabetes mellitus with diabetic chronic kidney disease; N18.31 - Chronic kidney disease, stage 3a (2) GERD (gastroesophageal reflux disease) Esophagitis presence: without esophagitis Qualified Code(s): K21.9 - Gastro- esophageal reflux disease without esophagitis (3) Hypertension Hypertension type: unspecified Qualified Code(s): I10 - Essential (primary) hypertension
[2021-07-25 15:43] LABS: Adenovirus F 40/41 PCR Not Detected (NotDetected); Astrovirus PCR Not Detected (NotDetected); Campylobacter PCR Not Detected (NotDetected); Clostridium diff Toxin A/B PCR Not Detected (NotDetected); Cryptosporidium PCR Not Detected (NotDetected); Cyclospora cayetanensis PCR Not Detected (NotDetected); Entamoeba histolytica PCR Not Detected (NotDetected); Enteroaggregative E.coli(EAEC) Not Detected (NotDetected); Enteropathogenic E.coli (EPEC) Not Detected (NotDetected); Enterotoxigenic E.coli (ETEC) Not Detected (NotDetected); Giardia lamblia PCR Not Detected (NotDetected); Norovirus GI/GII PCR Not Detected (NotDetected); Plesiomonas shigelloides PCR Not Detected (NotDetected); Rotavirus A PCR Not Detected (NotDetected); Salmonella PCR Not Detected (NotDetected); Sapovirus PCR Not Detected (NotDetected); Shiga-like Toxin E.coli (STEC) Not Detected (NotDetected); Shigella/Enteroinvasive E.coli Not Detected (NotDetected); Vibrio cholerae PCR Not Detected (NotDetected); Vibrio species PCR Not Detected (NotDetected); Yersinia enterocolitica PCR Not Detected (NotDetected)
[2021-07-25] MEDS ORDERED: cefTRIAXone SODIUM 1,000 MG in DEXTROSE 5% 50 ML IV SCH (16:00)
[2021-07-25] MEDS: cefTRIAXone SODIUM 2,000 MG in DEXTROSE 5% 50 ML IV SCH (17:19)
[2021-07-25 19:56] LABS: Appearance Urine Clear (Clear); Bacteria Urine Automated Negative (Negative); Bilirubin Urine Negative (Negative); Blood Urine Negative (Negative); Color Urine Dark Yellow; Epithelial Cell Urine Auto >30 /lpf (0-5); Glucose Urine UA Negative (Negative); Ketones Urine Negative (Negative); Leukocyte Esterase Urine Negative (Negative); Nitrite Urine Negative (Negative); Protein Urine Trace (Negative); RBC Urine Automated 0-4 /hpf (0-4); Urobilinogen Urine Negative (Negative)
[2021-07-25] MEDS: predniSONE 5 MG TAB PO SCH (21:09)
[2021-07-25] MEDS: metroNIDAZOLE 500 MG TAB PO SCH (21:11)
--- NOTE | 2021-07-25 22:06 | Electrocardiogram Report ---
Test Reason : Blood Pressure : / mmHG Vent. Rate : 094 BPM Atrial Rate : 094 BPM P-R Int : 158 ms QRS Dur : 076 ms QT Int : 356 ms P-R-T Axes : 100 -36 064 degrees QTc Int : 445 ms Normal sinus rhythm with sinus arrhythmia Premature atrial complexes Left axis deviation Nonspecific T wave abnormality Abnormal ECG When compared with ECG of 23-JUL-2021 15:25, Premature atrial complexes are now Present Confirmed by Noman Leon ([id number]) on 07/25/2021 10:06:11 PM Referred By: REFERRED SELF Confirmed By:Noman Leon
[2021-07-26 06:34] LABS: Basophils # (auto) 0.01 K/uL (0-0.2); Basophils % (auto) 0.2 %; Eosinophils # (auto) 0.01 K/uL (0-0.5); Eosinophils % (auto) 0.2 %; Hematocrit (blood only) 28.8 % (37-47); Hemoglobin 9.8 g/dL (12.0-16.0); Immature Granulocytes # (auto) 0.25 K/uL (0.00-0.02); Immature Granulocytes % (auto) 4.2 %; Lymphocytes # (auto) 0.32 K/uL (1.2-3.4); Lymphocytes % (auto) 5.4 %; Mean Corpuscular Hemoglobin 31.2 pg (25-34); Mean Corpuscular Volume 91.7 fL (80-100); Mean Platelet Volume 8.9 fL (7.4-10.4); Monocytes # (auto) 0.32 K/uL (0.11-0.59); Monocytes % (auto) 5.4 %; Neutrophils # (auto) 5.03 K/uL (1.4-6.5); Neutrophils % (auto) 84.6 %; Platelet Count 140 K/uL (130-400); RDW Coefficient of Variation 19.1 % (11.5-14.5); RDW Standard Deviation 63.1 fL (36.4-46.3); Red Blood Count 3.14 M/uL (4.2-5.4); White Blood Count 5.94 K/uL (4.8-10.8)
[2021-07-26 06:58] LABS: Albumin Globulin Ratio 1.4 (0.9-2); Albumin Level 2.6 gm/dl (3.4-5.0); BUN Creatinine Ratio 23.4 (10-20); Bilirubin,Total 0.6 mg/dl (0.2-1.0); Calcium 8.5 mg/dl (8.5-10.1); Creatinine Clr Calc Pharmacy 38.8 ml/min; Est GFR (African American) 40.4 ml/min; Est GFR (Non-African American) 34.9 ml/min; Globulin 1.9 gm/dl (2.5-4.0); Potassium 3.9 mmol/L (3.5-5.1); Total Protein 4.5 gm/dl (6.0-8.3)
[2021-07-26] MEDS: PANTOprazole 40 MG TAB PO SCH (08:08)
[2021-07-26] MEDS: metroNIDAZOLE 500 MG TAB PO SCH ×3 (08:08→20:29)
[2021-07-26] MEDS: RIVAROXABAN 15 MG TAB PO SCH (08:08)
[2021-07-26] MEDS: predniSONE 20 MG TAB PO SCH (08:08)
[2021-07-26] MEDS: AMIODARONE 200 MG TAB PO SCH (08:09)
[2021-07-26] MEDS: CAPSAICIN CR 0.075% 60 GM TUBE EXT SCH ×4 (08:09→20:27)
[2021-07-26] MEDS: INSULIN ASPART PER UNIT SC SCH ×4 (08:12→20:23)
[2021-07-26] MEDS: ACETAMINOPHEN 325 MG TAB PO PRN ×2 (09:58→14:10)
--- NOTE | 2021-07-26 13:22 | Hospitalist Progress Note ---
Date of Service July 26, 2021 Assessment & Plan (1) Acute proctitis: Plan: Acute proctitis/acute lower quadrant abdominal pain Pain improved yesterday, worsened yesterday with subjective chills. Pain was not associated with attempted meals. Blood cultures drawn, Rocephin/Flagyl restarted. BC remain pending, symptoms again improved. No recurrent fever today -Creatinine downtrending CTA/P: Rectal wall thickening is seen, which may be nonspecific secondary to underdistention, however proctitis cannot be entirely excluded. No evidence of diverticulitis or perforation is seen. Mesenteric ultrasound:Elevated peak systolic velocities in the celiac artery suggestive of stenosis, no mesenteric or arterial occlusion appreciated GI consulted. Recommend stool studies with C. difficile and culture, if negative MiraLAX 1 capful daily and Bentyl 10 mg 3 times daily. May resume diet. Lactate resolved, no signs of ongoing mesenteric ischemia. In ER patient with rigors and severe abdominal pain during exam. Received Cipro/Flagyl in ER and was admitted on ertapenem. This was discontinued as patient had initial resolution of symptoms, then antibiotics resumed as noted above Stool PCR, C. difficile negative Patient at risk for mesenteric ischemia with celiac artery stenosis as above, although no acute occlusion. No acute indication for vascular intervention, vascular will follow as outpatient -Lactate resolved -CBC daily PT/OT pending (2) Celiac artery stenosis: Plan: Noted on Dopplers as above, no acute occlusion Outpatient follow-up with vascular, no inpatient intervention recommended at this time (3) Abdominal pain, acute, bilateral lower quadrant: Plan: See above (4) Acute kidney injury superimposed on CKD: Plan: - Creatinine 1.91 upon admission, judy with elevated creatinine downtrending with base 1.13 Continue proctitis treatment as above, p.o. resumed (5) Paroxysmal atrial fibrillation: Plan: Paroxysmal atrial fibrillation/hypertension- Hold lisinopril, HCTZ. Blood pressure adequate control today. Continue Xarelto Continue Amio (6) Rheumatoid arthritis: Plan: Patient has been on methotrexate and chronic prednisone use for several months Pred held on admission, ?underlying steroid dependence. Resumed MTX held for GI eval/potential infection as above (7) GERD (gastroesophageal reflux disease): Plan: Place on famotidine 20 mg IV every 12 hours (8) Obstructive sleep apnea: Plan: CPAP at bedtime as needed (9) Diabetes mellitus, type 2: Plan: Hold Metformin Glucose checks AC/at bedtime SSI Last A1c well controlled (10) Hypertension: Plan: See above Admission and Anticipated Discharge Date Admission Date: July 23, 2021 Subjective Seen at bedside today. Patient is waiting to work with PT/OT. She feels that her pain gradually improved yesterday, and has been doing okay today. No abdominal pain at time of assessment. Her feeling of fever/chills has improved and not recurred this morning. No shortness of breath, difficulty breathing, chest pain, chest pressure. Does endorse some exacerbation of her chronic right hip pain for which she had follows up with orthopedics as an outpatient. She knows she has been told she is not a surgical candidate, notes that she has intermittent pain in her hip similar to prior flares. Sensation in hands and feet intact, no saddle anesthesia. Review of Systems Review of Systems: All systems reviewed & are unremarkable except as noted in Subjective Physical Exam Physical Exam: General: A&Ox3. NAD. Cooperative. Laying in bed at time of assessment. HEENT: Atraumatic, normocephalic. Vision and hearing grossly intact. Slight tenderness overlying muscles of right neck, right clavicle without crepitus. Pulm: CTAB A&P. -wheezes, -rales, -rhonchi. Symmetrical chest rise. No increase in work of breathing. No respiratory distress. Cardiac: RRR, -mrg. Radial pulses intact and symmetrical. Abdominal: Diffuse lower mild abdominal tenderness without guarding or rebound, improved from prior, bowel sounds intact. Extremities: Bilateral distal mild pitting edema. Pressure area on right anterior valdez and Ulcer on left anterior valdez with Aquacel dressing intact. Results & Data Results & Data ([facility]) Vital Signs (Past 12 Hours) Vital Signs Temp Pulse Pulse Resp BP BP Pulse Ox 07/26/21 11:00 36.4 C L 89 20 104/71 90 07/26/21 08:38 59 L 07/26/21 07:00 36.6 C 67 20 114/78 90 07/26/21 03:45 36.7 C 67 18 104/69 92 PG Care Time/CCT Total # of Minutes Spent Total Time Spent with Patient: Total time spent is greater than 50% in coordination of care (as documented) at patient's floor/unit and/or counseling patient: Coding Level of Care Code 79450 Subseq Hosp Care Lvl 2 Diagnoses Acute proctitis K62.89 Celiac artery stenosis I77.1 Abdominal pain, acute, bilateral lower quadrant R10.31; R10.32 Acute kidney injury superimposed on CKD N17.9; N18.9 Paroxysmal atrial fibrillation I48.0 Rheumatoid arthritis M06.9 GERD (gastroesophageal reflux disease) K21.9 Esophagitis presence: without esophagitis Obstructive sleep apnea G47.33 Diabetes mellitus, type 2 E11.22; N18.31 Diabetes mellitus custodial insulin use: without extermination supervisor use Diabetes mellitus complication status: with kidney complications Diabetes mellitus complication detail: with chronic kidney disease Chronic kidney disease stage: stage 3 (moderate) Chronic kidney disease stage 3 subtype: stage 3a (GFR 45-59) Hypertension I10 Hypertension type: unspecified (1) GERD (gastroesophageal reflux disease) Esophagitis presence: without esophagitis Qualified Code(s): K21.9 - Gastro- esophageal reflux disease without esophagitis (2) Diabetes mellitus, type 2 Diabetes mellitus custodial insulin use: without custodial use Diabetes mellitus complication status: with kidney complications Diabetes mellitus complication detail: with chronic kidney disease Chronic kidney disease stage: stage 3 (moderate) Chronic kidney disease stage 3 subtype: stage 3a (GFR 45-59) Qualified Code(s): E11.22 - Type 2 diabetes mellitus with diabetic chronic kidney disease; N18.31 - Chronic kidney disease, stage 3a (3) Hypertension Hypertension type: unspecified Qualified Code(s): I10 - Essential (primary) hypertension
[2021-07-26] MEDS: cefTRIAXone SODIUM 2,000 MG in DEXTROSE 5% 50 ML IV SCH (16:57)
[2021-07-26] MEDS: predniSONE 5 MG TAB PO SCH (20:28)
[2021-07-27] MEDS: ACETAMINOPHEN 325 MG TAB PO PRN ×2 (04:57→09:27)
[2021-07-27] MEDS: DICLOFENAC SOD 1% GEL 100 GM TUBE EXT PRN (05:06)
[2021-07-27 06:06] LABS: Hematocrit (blood only) 34.6 % (37-47); Hemoglobin 11.5 g/dL (12.0-16.0); Mean Corpuscular Hemoglobin 30.8 pg (25-34); Mean Corpuscular Hgb Conc 33.2 g/dL (32-36); Mean Corpuscular Volume 92.8 fL (80-100); Mean Platelet Volume 9.1 fL (7.4-10.4); Nucleated RBC # (auto) 0.03 K/uL (0-0); Nucleated RBC % (auto) 0.4 %; Platelet Count 166 K/uL (130-400); RDW Coefficient of Variation 19.2 % (11.5-14.5); RDW Standard Deviation 63.3 fL (36.4-46.3); Red Blood Count 3.73 M/uL (4.2-5.4); White Blood Count 6.69 K/uL (4.8-10.8)
[2021-07-27 06:31] LABS: BUN Creatinine Ratio 21.7 (10-20); Calcium 8.9 mg/dl (8.5-10.1); Creatinine Clr Calc Pharmacy 35.8 ml/min; Est GFR (African American) 36.7 ml/min; Est GFR (Non-African American) 31.7 ml/min; Potassium 3.9 mmol/L (3.5-5.1)
[2021-07-27 07:11] LABS: ALC (manual) 0.53 K/uL (1.2-3.4); ANC (manual) 5.87 K/uL (1.4-6.5); Eosinophils # (manual) 0.06 K/uL (0-0.5); Eosinophils % (manual) 0.9 %; Lymphocytes # (manual) 0.29 K/uL (1.2-3.4); Lymphocytes % (manual) 4.4 %; Monocytes # (manual) 0.17 K/uL (0.11-0.59); Monocytes % (manual) 2.6 %; Myelocytes # (manual) 0.06 K/uL (0-0); Myelocytes % (manual) 0.9 %; Neutrophils # (manual) 5.87 K/uL (1.4-6.5); Neutrophils % (manual) 87.7 %; Polychromasia 1+; Reactive Lymphocytes # (manual) 0.23 K/uL; Reactive Lymphocytes % (manual) 3.5 %
--- NOTE | 2021-07-27 07:41 | XRay Report ---
SINGLE VIEW CHEST CLINICAL HISTORY: Hypoxia FINDINGS: 2 AP, portable, upright chest radiographs are compared to study dated 01/25/2020. The examin ation is degraded by portable technique and patient rotation. The heart is top normal in size noting atherosclerotic calcification of the thoracic aorta. Airspace opacities are present at both lung base s. No large pleural effusion or pneumothorax is seen. The skeletal structures are osteopenic. The bon y thorax is grossly intact. Advanced arthritic changes seen in the shoulders. IMPRESSION: Airspace opacities are seen throughout the mid to lower lungs. Correlate clinically for e vidence of pneumonia/aspiration pneumonitis. Radiographic follow-up to resolution is recommended. ACT 112: Negative or not required by law. Electronically signed by: Chas Medellin M.D. 07/27/2021 7:39 AM
--- NOTE | 2021-07-27 08:11 | Hospitalist Progress Note ---
Date of Service July 27, 2021 Assessment & Plan (1) Acute respiratory failure with hypoxia: Plan: Patient with uptrending oxygen requirements, currently on 2-4 L oxygen mask CXR: Bilateral mid/lower lung infiltrate suspicious for aspiration pneumonitis versus pneumonia - CT-C: Multifocal groundglass consolidation is seen throughout both lungs, greatest at the lung bases. This represents a significant change from 07/23/2021 and could represent multifocal pneumonia and/or pulmonary edema. Clinical correlation will be essential and radiographic follow-up to resolution is recommended. Trace pleural fluid is seen on the right. Previously clinically well on room air, some desats with exertion -CT with rapid clinical worsening compared to base of lungs visible on 07/23 chest x-ray. DDx does include pulmonary edema, pt is 4 L net positive, but this is in context of initial sepsis rehydration on admission and is now hypotensive with uptrending creatinine, dry mucous membranes although third spacing/leg edema at baseline. She was accidentally on a 60 mg prednisone daily dose for over 6 months and commendation with methotrexate so she is at risk for opportunistic pathogens, although would not expect PGP/fungal progression to produce the change seen in the last 4 days. Fungitell pending. Will expand to Zosyn with atypical coverage with doxycycline, azithromycin deferred due to intermittently borderline QT and concurrent amiodarone. Defer MRSA coverage as MRSA nares is negative Sputum culture pending Procalcitonin negative, CRP elevated? Viral/atypical pneumonia. Bio fire pending MRSA nare negative Patient chronically on steroids and MTX, is at increased risk for opportunistic pathogens. As above. In afternoon hypotensive to 93/62, responded to IV fluids, downtrending to 98/60, again improved to 112/67 with 500 cc bolus with oxygen requirements approximately 3 L nasal cannula. - Transferred to PCU (2) Acute proctitis: Plan: Acute proctitis/acute lower quadrant abdominal pain -Creatinine uptrending, BUN/creatinine ratio increased, elevated pulse. Patient is hypoalbuminemic with third spacing/edema, but intravascularly depleted. Fluids as below, plus boost CTA/P: Rectal wall thickening is seen, which may be nonspecific secondary to underdistention, however proctitis cannot be entirely excluded. No evidence of diverticulitis or perforation is seen. Mesenteric ultrasound:Elevated peak systolic velocities in the celiac artery suggestive of stenosis, no mesenteric or arterial occlusion appreciated GI consulted. Recommend stool studies with C. difficile and culture, if negative MiraLAX 1 capful daily and Bentyl 10 mg 3 times daily. May resume diet. Lactate resolved, no signs of ongoing mesenteric ischemia. In ER patient with rigors and severe abdominal pain during exam. Received Cipro/Flagyl in ER and was admitted on ertapenem. This was discontinued as patient had initial resolution of symptoms, then antibiotics resumed as noted above Stool PCR, C. difficile negative Patient at risk for mesenteric ischemia with celiac artery stenosis as above, although no acute occlusion. No acute indication for vascular intervention, vascular will follow as outpatient -Lactate resolved -CBC daily PT/OT initially recommending return home, patient worsen with suspicion for pneumonia being treated as below (3) Celiac artery stenosis: Plan: Noted on Dopplers as above, no acute occlusion Outpatient follow-up with vascular, no inpatient intervention recommended at this time (4) Abdominal pain, acute, bilateral lower quadrant: Plan: See above (5) Acute kidney injury superimposed on CKD: Plan: - Creatinine 1.91 upon admission, base 1.13 Patient initially improving, subsequently worsening with respiratory symptoms concerning for pneumonia Creatinine 1.57, fluids as above Boost, patient hypoalbuminemic (6) Paroxysmal atrial fibrillation: Plan: Paroxysmal atrial fibrillation/hypertension- Hold lisinopril, HCTZ. Continue Xarelto Continue Amio (7) Rheumatoid arthritis: Plan: Patient has been on methotrexate and chronic prednisone use for several months Pred held on admission, ?underlying steroid dependence. Resumed MTX held for GI eval/potential infection as above (8) GERD (gastroesophageal reflux disease): Plan: Place on famotidine 20 mg IV every 12 hours (9) Obstructive sleep apnea: Plan: CPAP at bedtime as needed (10) Diabetes mellitus, type 2: Plan: Hold Metformin Glucose checks AC/at bedtime SSI Last A1c well controlled (11) Hypertension: Plan: See above Admission and Anticipated Discharge Date Admission Date: July 23, 2021 Subjective Seen at bedside, patient with increased shortness of breath, feeling cold with chills overnight, new cough. Feel like her arms and legs are full of fluid but is also thirsty. Abdominal pain is improved/not present this morning. No BM this AM. Review of Systems Review of Systems: All systems reviewed & are unremarkable except as noted in Subjective Physical Exam Physical Exam: General: A&Ox3. NAD. Cooperative. Laying in bed on oxygen mask at time of assessment. HEENT: Atraumatic, normocephalic. MM tacky. Vision and hearing grossly intact. Pulm: Crackles of the midlung and base bilaterally, no wheezes no rhonchi. Symmetrical chest rise. No increase in work of breathing. No respiratory distress. Cardiac: RRR, -mrg. Radial pulses intact and symmetrical. Abdominal: No abdominal tenderness without guarding or rebound, improved from prior, bowel sounds intact. Extremities: Bilateral distal mild pitting edema. Pressure area on right anterior valdez and Ulcer on left anterior valdez with Aquacel dressing intact. Results & Data Results & Data ([facility]) Vital Signs (Past 12 Hours) Vital Signs Temp Pulse Pulse Pulse Resp BP Pulse Ox 07/27/21 06:00 37.1 C 99 H 18 104/65 98 07/27/21 05:42 102 H 18 94 07/27/21 05:41 37.3 C 111 H 20 121/68 62 L 07/27/21 04:00 37.1 C 76 18 129/83 97 07/27/21 00:00 07/26/21 23:00 36.7 C 67 18 111/73 92 07/26/21 22:54 66 Pulse Ox 07/27/21 06:00 07/27/21 05:42 07/27/21 05:41 07/27/21 04:00 07/27/21 00:00 92 07/26/21 23:00 07/26/21 22:54 PG Care Time/CCT Total # of Minutes Spent Total Time Spent with Patient: Total time spent is greater than 50% in coordination of care (as documented) at patient's floor/unit and/or counseling patient: Coding Level of Care Code 22644 Subseq Hosp Care Lvl 3 Diagnoses Acute proctitis K62.89 Celiac artery stenosis I77.1 Abdominal pain, acute, bilateral lower quadrant R10.31; R10.32 Acute kidney injury superimposed on CKD N17.9; N18.9 Paroxysmal atrial fibrillation I48.0 Rheumatoid arthritis M06.9 GERD (gastroesophageal reflux disease) K21.9 Esophagitis presence: without esophagitis Obstructive sleep apnea G47.33 Diabetes mellitus, type 2 E11.22; N18.31 Chronic kidney disease stage: stage 3 (moderate) Chronic kidney disease stage 3 subtype: stage 3a (GFR 45-59) Diabetes mellitus complication detail: with chronic kidney disease Diabetes mellitus complication status: with kidney complications Diabetes mellitus alf insulin use: without alf use Hypertension I10 Hypertension type: unspecified Acute respiratory failure with hypoxia J96.01 (1) Diabetes mellitus, type 2 Chronic kidney disease stage: stage 3 (moderate) Chronic kidney disease stage 3 subtype: stage 3a (GFR 45-59) Diabetes mellitus complication detail: with chronic kidney disease Diabetes mellitus complication status: with kidney complications Diabetes mellitus alf insulin use: without alf use Qualified Code(s): E11.22 - Type 2 diabetes mellitus with diabetic chronic kidney disease; N18.31 - Chronic kidney disease, stage 3a (2) GERD (gastroesophageal reflux disease) Esophagitis presence: without esophagitis Qualified Code(s): K21.9 - Gastro- esophageal reflux disease without esophagitis (3) Hypertension Hypertension type: unspecified Qualified Code(s): I10 - Essential (primary) hypertension
[2021-07-27] MEDS ORDERED: SODIUM CHLORIDE 0.9% 1000ML 1,000 ML IV SCH (08:15)
[2021-07-27] MEDS: INSULIN ASPART PER UNIT SC SCH ×4 (08:22→21:55)
[2021-07-27] MEDS: PANTOprazole 40 MG TAB PO SCH (08:31)
[2021-07-27] MEDS: metroNIDAZOLE 500 MG TAB PO SCH (08:31)
[2021-07-27] MEDS: AMIODARONE 200 MG TAB PO SCH (08:31)
[2021-07-27] MEDS: CAPSAICIN CR 0.075% 60 GM TUBE EXT SCH ×4 (08:33→21:55)
[2021-07-27] MEDS: predniSONE 20 MG TAB PO SCH (08:34)
[2021-07-27] MEDS: RIVAROXABAN 15 MG TAB PO SCH (08:34)
--- NOTE | 2021-07-27 09:53 | CT Scan Report ---
CT SCAN OF THE CHEST WITHOUT IV CONTRAST CLINICAL HISTORY: Hypoxia. Pneumonia. COMPARISON STUDY: Chest x-ray dated 07/27/2021. Abdominal CT dated 07/23/2021. TECHNIQUE: CT scan of the thorax was performed from the thoracic inlet to the upper abdomen. Images are reviewed in the axial, sagittal, and coronal planes. IV contrast was not administered for this ex amination as per the referring clinician. A dose lowering technique was utilized adhering to the stephanie ncijaquelin of STEPHAN. There is streak artifact from the arms which could not be elevated above the chest. CT DOSE: 1059.04 mGy.cm FINDINGS: Thyroid: Enlarged and heterogeneous. Thoracic aorta: There is atherosclerotic calcification of the thoracic aorta, which is normal in brooklynn lars and demonstrates standard 3-vessel arch anatomy. Heart: The heart is top normal in size and without pericardial effusion. The coronary arteries are de nsely calcified. Lungs and pleural spaces: Multifocal groundglass opacities are seen throughout both lungs, greatest a t the lung bases. The trachea and central airways appear clear. Mild bronchiectasis is noted at both lung bases. There is bibasilar scarring/atelectasis. Trace pleural fluid is seen on the right. Mediastinum: Scattered subcentimeter mediastinal lymph nodes are not pathologically enlarged by size criteria. Suise: Not well assessed without IV contrast. Axillae: There is no axillary lymphadenopathy. Upper abdomen: There is a small hiatal hernia. Partially visualized upper abdominal viscera is otherw ise grossly unremarkable. Skeletal structures: The skeletal structures are osteopenic. Degenerative change and hyperkyphosis is noted in the thoracic spine. No lytic or blastic bony lesions are seen. Advanced arthritic change is noted in the shoulders. IMPRESSION: 1. Multifocal groundglass consolidation is seen throughout both lungs, greatest at the lung bases. Th is represents a significant change from 07/23/2021 and could represent multifocal pneumonia and/or pul monary edema. Clinical correlation will be essential and radiographic follow-up to resolution is hai mmended. 2. Trace pleural fluid is seen on the right. 3. Additional findings as above. ACT 112: Negative or not required by law. Electronically signed by: Chas Medellin M.D. 07/27/2021 9:51 AM
[2021-07-27] MEDS ORDERED: CEFEPIME 2,000 MG in SYRINGE 0 ML IV SCH (10:00)
[2021-07-27] MEDS ORDERED: PIPERACILL/TAZOBAC CONSULT ACTIVE PRN (11:27)
[2021-07-27] MEDS ORDERED: PIPERACILLIN/TAZOBACTAM 4.5 GM in DEXTROSE 5% 100 ML IV STA (11:59)
[2021-07-27] MEDS ORDERED: SODIUM CHLORIDE 0.9% 1000ML 500 ML IV ONE (12:59)
[2021-07-27] MEDS: DOXYCYCLINE HYCLATE 100 MG in DEXTROSE 5% 100 ML IV SCH ×2 (14:48→22:03)
[2021-07-27 16:50] LABS: Adenovirus PCR Not Detected (NotDetected); Bordetella parapertussis PCR Not Detected (NotDetected); Bordetella pertussis PCR Not Detected (NotDetected); Chlamydia pneumoniae PCR Not Detected (NotDetected); Coronavirus 229E PCR Not Detected (NotDetected); Coronavirus CoV-2 (COVID19)PCR Not Detected (NotDetected); Coronavirus HKU1 PCR Not Detected (NotDetected); Coronavirus NL63 PCR Not Detected (NotDetected); Coronavirus OC43PCR Not Detected (NotDetected); Human Metapneumovirus PCR Not Detected (NotDetected); Influenza A PCR Not Detected (NotDetected); Influenza B PCR Not Detected (NotDetected); Mycoplasma pneumoniae PCR Not Detected (NotDetected); Parainfluenza Virus 1 PCR Not Detected (NotDetected); Parainfluenza Virus 2 PCR Not Detected (NotDetected); Parainfluenza Virus 3 PCR Not Detected (NotDetected); Parainfluenza Virus 4 PCR Not Detected (NotDetected); Respiratory Syncytial VirusPCR Not Detected (NotDetected); Rhinovirus/Enterovirus PCR Not Detected (NotDetected)
[2021-07-27] MEDS: LACTATED RINGER'S 1,000 ML IV SCH (17:45)
[2021-07-27] MEDS: PIPERACILLIN/TAZOBACTAM 4.5 GM in DEXTROSE 5% 100 ML IV SCH (17:45)
[2021-07-27] MEDS: predniSONE 5 MG TAB PO SCH (21:56)
[2021-07-28] MEDS: ONDANSETRON INJ 2 MG/ML 2 ML VIAL IV PRN (01:27)
[2021-07-28] MEDS ORDERED: guaiFENesin/DEXTROM SYRUP 100MG/10MG 5ML UDC PO ONE (01:28)
[2021-07-28] MEDS: PIPERACILLIN/TAZOBACTAM 4.5 GM in DEXTROSE 5% 100 ML IV SCH ×3 (01:56→17:21)
[2021-07-28] MEDS: LACTATED RINGER'S 1,000 ML IV SCH (05:36)
[2021-07-28 07:47] LABS: Basophils # (auto) 0.02 K/uL (0-0.2); Basophils % (auto) 0.3 %; Eosinophils # (auto) 0.02 K/uL (0-0.5); Eosinophils % (auto) 0.3 %; Hematocrit (blood only) 28.8 % (37-47); Hemoglobin 9.6 g/dL (12.0-16.0); Immature Granulocytes # (auto) 0.16 K/uL (0.00-0.02); Immature Granulocytes % (auto) 2.6 %; Lymphocytes # (auto) 0.67 K/uL (1.2-3.4); Mean Corpuscular Hemoglobin 30.6 pg (25-34); Mean Corpuscular Hgb Conc 33.3 g/dL (32-36); Mean Corpuscular Volume 91.7 fL (80-100); Mean Platelet Volume 8.6 fL (7.4-10.4); Monocytes # (auto) 0.19 K/uL (0.11-0.59); Monocytes % (auto) 3.1 %; Neutrophils # (auto) 5.04 K/uL (1.4-6.5); Neutrophils % (auto) 82.7 %; Platelet Count 165 K/uL (130-400); RDW Coefficient of Variation 19.2 % (11.5-14.5); RDW Standard Deviation 63.4 fL (36.4-46.3); Red Blood Count 3.14 M/uL (4.2-5.4)
[2021-07-28] MEDS: INSULIN ASPART PER UNIT SC SCH ×4 (07:55→20:43)
[2021-07-28 08:08] LABS: BUN Creatinine Ratio 20.8 (10-20); Calcium 8.6 mg/dl (8.5-10.1); Creatinine Clr Calc Pharmacy 39.6 ml/min; Est GFR (African American) 40.8 ml/min; Est GFR (Non-African American) 35.2 ml/min; Potassium 3.7 mmol/L (3.5-5.1)
[2021-07-28] MEDS ORDERED: FUROSEMIDE INJ 20 MG/2 ML VIAL IV ONE (08:15)
[2021-07-28] MEDS: PANTOprazole 40 MG TAB PO SCH ×2 (08:40→20:51)
[2021-07-28] MEDS: predniSONE 20 MG TAB PO SCH ×2 (08:40→20:50)
[2021-07-28] MEDS: AMIODARONE 200 MG TAB PO SCH (08:41)
[2021-07-28] MEDS: CAPSAICIN CR 0.075% 60 GM TUBE EXT SCH ×4 (08:41→20:52)
--- NOTE | 2021-07-28 09:13 | Pulmonary Consultation ---
Date of Consultation July 28, 2021 Assessment & Plan (1) Acute respiratory failure with hypoxia: (2) Rheumatoid arthritis: (3) Abnormal chest CT: CT chest 07/27/2021 personally reviewed: Diffuse groundglass opacities appreciated bilaterally upper and lower lobes Patchy consolidative changes appreciated bilateral lower lobes Minimal mediastinal lymphadenopathy Pulmonary opacities are new compared to CT abdomen pelvis done 07/23/2021 --Acute hypoxic respiratory failure Multifactorial Patient is +7.2 L since coming to the hospital --> follow-up 2D echo Patient was on chronic prednisone 60 mg daily May which has been tapering down, she is not any PJP Prophylaxis Patient is also on chronic amiodarone Diffuse alveolar hemorrhage can also look the same. H&H is stable COVID-19 PCR negative x2 Procalcitonin 0.24 BNP: 72 in a patient with BMI 38 LDH 467 CRP 6.82 Beta-D Glucan ordered. --DAYV Noncompliant with CPAP Continue with CPAP/BiPAP while in the hospital --Rheumatoid arthritis On methotrexate and chronic prednisone Plan: Start the patient on atovaquone 750 mg twice daily treating as if patient has PGP, patient is allergic to sulfamethoxazole. Recommend ID consultation and allergy for desensitization consideration Sputum culture to look for PJP Give 20 mg of Lasix O2 supplementation to keep O2 saturation 88-92% BiPAP nightly and as needed shortness of breath Hold Xarelto Increase prednisone to 40 mg twice daily for 5 days followed by 40 mg once a day for 5 days followed by 20 mg for 11 days. Change Protonix to 40 mg twice daily We will consider bronchoscopy if no improvement in clinical status in the next 24-48 hours. Bronchoscopy will be high risk given that she is requiring significant amount of oxygen Case was discussed with Dr. Shetty Please note the above document was generated using voice recognition software. It may contain grammatical, syntax or spelling errors.Any formal questions or concerns about the content, text or information contained within the body of this dictation should be directly addressed to the provider for clarification. History of Present Illness Attending Physician: Dennis Shetty MD History of Present Illness 76-year-old female was admitted to hospital because of colitis Past medical history: Rheumatoid arthritis on methotrexate and prednisone, diabetes, DAVY, hypertension, A. fib on Xarelto While being admitted to the hospital patient oxygen requirement was gradually going up She had a CT chest done 07/27/2021. Pulmonary consulted for the same At the time of examination patient was saturating 92% on 40 L, 70% high flow. I went down to 60% She was not in any respiratory distress. Breathing in the high teens to low 20s. She denies any chest pain. She does complain of cough especially when she takes deep breath in. She brings up clear phlegm. Denies any hemoptysis. Denies any fever or chills. No dysuria, no diarrhea. She complains of the right shoulder pain which is bothering her As per her the shortness of breath has improved compared to yesterday. Patient has chronic blurry vision which has not significantly worsened. Social history: Lifetime non-smoker Allergies Allergy/AdvReac Type Severity Reaction Status Date / Time Iodinated Contrast Media Allergy Intermediate Foot rash, Verified 07/23/21 15:09 swelling Sulfa (Sulfonamide Allergy Mild Rash, Verified 07/23/21 15:09 Antibiotics) itching sulfamethoxazole Allergy Mild Rash, Verified 07/23/21 15:09 itching Home Medications Medication Instructions Recorded Confirmed Type calcium carbonate 600 mg-vitamin 1 tab PO QAM 01/25/20 07/23/21 History D3 10 mcg (400 unit) tablet (Calcium 600 + D(3)) potassium gluconate 595 mg (99 mg) 99 mg PO QAM 01/25/20 07/23/21 History tablet acetaminophen 500 mg tablet 500 - 1,000 mg PO Q6H PRN 05/16/20 07/23/21 History rivaroxaban 20 mg tablet (Xarelto) 20 mg PO DAILY #90 tab 05/16/21 07/23/21 Rx zinc gluconate 50 mg tablet 50 mg PO DAILY 06/04/21 07/23/21 History folic acid 1 mg tablet 1 mg PO DAILY #90 tab 06/05/21 07/23/21 Rx hydrochlorothiazide 25 mg tablet 25 mg PO DAILY #90 tab 06/05/21 07/23/21 Rx lisinopril 10 mg tablet 10 mg PO DAILY #90 tab 06/11/21 07/23/21 Rx amiodarone 200 mg tablet 200 mg PO DAILY #90 tab 07/01/21 07/23/21 Rx cholecalciferol (vitamin D3) 25 25 mcg PO DAILY 07/23/21 07/23/21 History mcg (1,000 unit) capsule (Vitamin D3) metformin 500 mg tablet,extended 500 mg PO QDD 07/23/21 07/23/21 History release 24 hr methotrexate sodium 2.5 mg tablet 15 mg PO WK 07/23/21 07/23/21 History prednisone 20 mg tablet 20 mg PO QAM 07/23/21 07/23/21 History prednisone 5 mg tablet 17.5 mg PO QPM 07/23/21 07/23/21 History Patient History Medical History Chronic shoulder pain Pain started after CTR > per patient, PCP started her on prednisone for this which she they have been trying to slowly taper off of Diabetes mellitus, type 2 NIDDM Glaucoma Hypertension Morbid obesity Paroxysmal atrial fibrillation on Xarelto PMR (polymyalgia rheumatica) Sleep apnea CPAP Surgical History Cyst Scalp cysts excision (12/12/18): Grade view 1, MAC#3, ETT 7.5 at [facility] H/O colonoscopy History of ankle surgery Right History of carpal tunnel release Right History of hernia repair Laparoscopic hernia x2 History of knee replacement procedure of right knee R/L History of laminectomy Dr. Styles History of left knee replacement + subsequent Left knee I&D poly exchange History of lumpectomy of left breast benign History of revision of total knee arthroplasty R/L History of surgical procedure on eye proper using laser History of tooth extraction Hx of hysterectomy Hx of left cataract extraction Hx of right cataract extraction Family History Sister Breast cancer Father Heart disease Other No family history of adverse response to anesthesia Denies family history of Ovarian cancer Prostate cancer Myocardial infarction Lung cancer Colorectal cancer Social History Smoking Status: Former smoker Age Started Using Tobacco: 5; Age Quit Using Tobacco: 25; packs per day: 1; Years Smoked: 24; Second Hand Exposure: No; Tobacco Cessation Education Requested by Patient: No Hx Alcohol Use: No Hx Substance Use: No Preferred Language: Ug[place] Communication Ability: Effective Visual Impairment: Limited Hearing Ability: Normal 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 Required: No Beliefs That Will Affect Care: None marital status: Current Living Situation: Spouse current occupational status: retired How many Children do You have: 5 Other Information That Helps Us Care for You: No Feels Safe at Home: Yes Safety Concerns: Feels Safe At This Time Childhood Exposure to Second-Hand Smoke: Yes caffeine: No during the past year weight has: decreased > 10 lbs Dental Care, Regularly: No Physical Activity Frequency: Does not Exercise Seatbelt Use: always Sunscreen Use: No Do you think of yourself as: straight/heterosexual Gender Identity: Female Assistive Devices: Glasses and Oxygen - Continuous Assistive Devices Comment: Reports that she has not used CPAP in about a year Review of Systems Review of Systems: All systems reviewed & are unremarkable except as noted in HPI & below Physical Exam Physical Exam: Constitutional: No acute distress HEENT: EOMI, PERRLA, thick neck Respiratory system: Decreased air entry bilaterally, no wheeze, no, positive crackles bilaterally CVS: S1-S2 positive, no murmurs or gallops Abdomen: Soft, nontender, nondistended, positive bowel sounds x4, obese Extremities: +2 pulses bilaterally radialis/ dorsalis pedis, no cyanosis, +1 pitting edema bilateral lower extremity, ecchymosis appreciated bilateral dorsal surfaces of upper extremity Neuro: Awake alert oriented x3 Psych: Normal mood and affect G/U: Positive Campbell Skin: no rashes, warm and dry Lymphatic: no cervical or axillary lymphadenopathy Results & Data Results & Data ([facility]) Vital Signs (Past 12 Hours) Vital Signs Temp Pulse Pulse Resp BP BP Pulse Ox 07/28/21 08:46 75 07/28/21 07:39 78 20 94 07/28/21 07:35 36.9 C 75 20 123/76 90 07/28/21 03:25 79 18 98 07/28/21 03:00 36.9 C 77 18 136/71 95 07/28/21 02:43 78 07/28/21 02:00 77 22 92 07/27/21 22:56 36.8 C 108 H 18 134/69 94 Laboratory Results 07/28/21 07:22 07/28/21 07:22 PG Care Time/CCT Total # of Minutes Spent Total Time Spent with Patient: Total time spent is greater than 50% in coordination of care (as documented) at patient's floor/unit and/or counseling patient: [place] [address] Initial Inpt Care Lvl 3 Patient Type New Diagnoses Acute respiratory failure with hypoxia J96.01 Rheumatoid arthritis M06.[address] R93.89
[2021-07-28] MEDS: ATOVAQUONE 750 MG/5 ML UDC PO SCH ×2 (09:26→20:51)
[2021-07-28] MEDS ORDERED: predniSONE 20 MG TAB PO STA (09:57)
--- NOTE | 2021-07-28 10:11 | XRay Report ---
SINGLE VIEW CHEST CLINICAL HISTORY: Hypoxia FINDINGS: An AP, portable, upright chest radiograph is compared to chest x-ray and chest CT dated 07/09. The heart is top normal in size noting atherosclerotic calcification of the thoracic aorta. M ultifocal airspace opacities are again seen throughout both lungs. This is unchanged to modestly wors ened as compared to yesterday. Small pleural effusions are suspected. No pneumothorax is seen. The sk eletal structures are osteopenic. The bony thorax is grossly intact. Advanced arthritic changes seen in the shoulders. IMPRESSION: Multifocal airspace opacities are again seen throughout both lungs. This is unchanged to modestly worsened as compared to yesterday. ACT 112: Negative or not required by law. Electronically signed by: Chas Medellin M.D. 07/28/2021 10:10 AM
--- NOTE | 2021-07-28 11:34 | Hospitalist Progress Note ---
Date of Service July 28, 2021 Assessment & Plan (1) Acute respiratory failure with hypoxia: Plan: Patient with uptrending oxygen requirements, currently on 2-4 L oxygen mask CXR: Bilateral mid/lower lung infiltrate suspicious for aspiration pneumonitis versus pneumonia - CT-C: Multifocal groundglass consolidation is seen throughout both lungs, greatest at the lung bases. This represents a significant change from 07/23/2021 and could represent multifocal pneumonia and/or pulmonary edema. Clinical correlation will be essential and radiographic follow-up to resolution is recommended. Trace pleural fluid is seen on the right. Previously clinically well on room air, some desats with exertion -CT with rapid clinical worsening compared to base of lungs visible on 07/23 chest x-ray. DDx does include pulmonary edema, pt is 4 L net positive, but this is in context of initial sepsis rehydration on admission and is now hypotensive with uptrending creatinine, dry mucous membranes although third spacing/leg edema at baseline. She was accidentally on a 60 mg prednisone daily dose for over 6 months and commendation with methotrexate so she is at risk for opportunistic pathogens, although would not expect PGP/fungal progression to produce the change seen in the last 4 days. Fungitell pending. Will expand to Zosyn with atypical coverage with doxycycline, azithromycin deferred due to intermittently borderline QT and concurrent amiodarone. Defer MRSA coverage as MRSA nares is negative Sputum culture pending Procalcitonin negative, CRP elevated. Bio fire negative MRSA nare negative Patient chronically on steroids and MTX, is at increased risk for opportunistic pathogens. As above. 07/27 In afternoon hypotensive to 93/62, responded to IV fluids, downtrending to 98/60, again improved to 112/67 with 500 cc bolus with oxygen requirements approximately 3 L nasal cannula. -07/28 blood pressure has improved to 120/76, continues to have signs of edema. Creatinine now downtrending, no fever/chills/rigors overnight. With blood pressure improvement trial 20 mg Lasix as is now several liters positive from admission, was admitted point depleted. Pulmonary consulted given acute worsening. Recommended to start on atovaquone 750 twice daily for P STARR prevention pending additional work-up (patient does have a skin urticarial itchy reaction to Bactrim in the past), infectious disease consultation, sputum culture. Xarelto held as diffuse alveolar hemorrhage could present similarly. Will trial 20 mg of Lasix and follow clinically. Consider bronchoscopy if no improvement in next 24 to 48 hours, although patient is high risk for decompensation. Patient did start prednisone taper at the end of May/beginning of June, recommended to increase prednisone to 40 mg twice daily for 5 days then moved to 40 mg a day for 5 days, followed 20 mg for 11 days. PPI prophylaxis increased for this. Appreciate recommendations. BNP normal, troponin repeat normal, patient without chest pain/clinical signs of ACS. Echo pending (2) Acute proctitis: Plan: Acute proctitis/acute lower quadrant abdominal pain - 07/27- Creatinine uptrending, BUN/creatinine ratio increased, elevated pulse. Patient is hypoalbuminemic with third spacing/edema, but intravascularly depleted. Fluids as below, plus boost CTA/P: Rectal wall thickening is seen, which may be nonspecific secondary to underdistention, however proctitis cannot be entirely excluded. No evidence of diverticulitis or perforation is seen. Mesenteric ultrasound:Elevated peak systolic velocities in the celiac artery suggestive of stenosis, no mesenteric or arterial occlusion appreciated GI consulted. Recommend stool studies with C. difficile and culture, if nega tive MiraLAX 1 capful daily and Bentyl 10 mg 3 times daily. May resume diet. Lactate resolved, no signs of ongoing mesenteric ischemia. In ER patient with rigors and severe abdominal pain during exam. Received Cipro/Flagyl in ER and was admitted on ertapenem. This was discontinued as patient had initial resolution of symptoms, then antibiotics resumed as noted above Stool PCR, C. difficile negative Patient at risk for mesenteric ischemia with celiac artery stenosis as above, although no acute occlusion. No acute indication for vascular intervention, vascular will follow as outpatient -Lactate resolved following admission with care above -Ongoing work-up for respiratory failure as above (3) Celiac artery stenosis: Plan: Noted on Dopplers as above, no acute occlusion Outpatient follow-up with vascular, no inpatient intervention recommended at this time (4) Abdominal pain, acute, bilateral lower quadrant: Plan: See above (5) Acute kidney injury superimposed on CKD: Plan: - Creatinine 1.91 upon admission, base 1.13 Patient initially improving, subsequently worsening with respiratory symptoms concerning for pneumonia Creatinine 1.57, fluids as above Boost, patient hypoalbuminemic (6) Paroxysmal atrial fibrillation: Plan: Paroxysmal atrial fibrillation/hypertension- Hold lisinopril, HCTZ. Continue Xarelto Continue Amio (7) Rheumatoid arthritis: Plan: Patient has been on methotrexate and chronic prednisone use for several months Pred held on admission, ?underlying steroid dependence. Resumed MTX held for GI eval/potential infection as above (8) GERD (gastroesophageal reflux disease): Plan: Place on famotidine 20 mg IV every 12 hours (9) Obstructive sleep apnea: Plan: CPAP at bedtime as needed (10) Diabetes mellitus, type 2: Plan: Hold Metformin Glucose checks AC/at bedtime SSI Last A1c well controlled (11) Hypertension: Plan: See above Admission and Anticipated Discharge Date Admission Date: July 23, 2021 Subjective Patient seen the bedside this morning. She reports she had been short of breath overnight, had progressed to high flow nasal cannula overnight. No fever/chills/shaking sweats like she had the previous evening, felt cold intermittently throughout the night. No nausea/vomiting. Did have an episode of diarrhea overnight. Denies chest pain, chest pressure, palpitations. Does endorse continued leg and hand swelling. Review of Systems Review of Systems: All systems reviewed & are unremarkable except as noted in Subjective Physical Exam Physical Exam: General: A&Ox3. NAD. Cooperative. On high flow 40/70 HEENT: Atraumatic, normocephalic. Vision and hearing grossly intact. Pulm: Diffuse of the midlung and base bilaterally, no wheezes no rhonchi. Symmetrical chest rise. No increase in work of breathing. No respiratory distress. Cardiac: RRR, -mrg. Radial pulses intact and symmetrical. Abdominal: No abdominal tenderness without guarding or rebound, improved from prior, bowel sounds intact. Extremities: Bilateral distal mild pitting edema. Pressure area on right anterior valdez with Aquacel intact, left anterior valdez without dressing no weeping or erythema Results & Data Results & Data ([facility]) Vital Signs (Past 12 Hours) Vital Signs Temp Pulse Pulse Resp BP BP Pulse Ox 07/28/21 10:35 77 20 91 07/28/21 08:46 75 07/28/21 07:39 78 20 94 07/28/21 07:35 36.9 C 75 20 123/76 90 07/28/21 03:25 79 18 98 07/28/21 03:00 36.9 C 77 18 136/71 95 03/21/22 02:43 78 07/28/21 02:00 77 22 92 PG Care Time/CCT Total # of Minutes Spent Total Time Spent with Patient: Total time spent is greater than 50% in coordination of care (as documented) at patient's floor/unit and/or counseling patient: Coding Level of Care Code 68924 Subseq Hosp Care Lvl 3 Diagnoses Acute respiratory failure with hypoxia J96.01 Acute proctitis K62.89 Celiac artery stenosis I77.1 Abdominal pain, acute, bilateral lower quadrant R10.31; R10.32 Acute kidney injury superimposed on CKD N17.9; N18.9 Paroxysmal atrial fibrillation I48.0 Rheumatoid arthritis M06.9 GERD (gastroesophageal reflux disease) K21.9 Esophagitis presence: without esophagitis Obstructive sleep apnea G47.33 Diabetes mellitus, type 2 E11.22; N18.31 Chronic kidney disease stage: stage 3 (moderate) Chronic kidney disease stage 3 subtype: stage 3a (GFR 45-59) Diabetes mellitus complication detail: with chronic kidney disease Diabetes mellitus complication status: with kidney complications Diabetes mellitus intermediate insulin use: without intermediate use Hypertension I10 Hypertension type: unspecified (1) Diabetes mellitus, type 2 Chronic kidney disease stage: stage 3 (moderate) Chronic kidney disease stage 3 subtype: stage 3a (GFR 45-59) Diabetes mellitus complication detail: with chronic kidney disease Diabetes mellitus complication status: with kidney complications Diabetes mellitus lobsterman insulin use: without intermediate use Qualified Code(s): E11.22 - Type 2 diabetes mellitus with diabetic chronic kidney disease; N18.31 - Chronic kidney disease, stage 3a (2) GERD (gastroesophageal reflux disease) Esophagitis presence: without esophagitis Qualified Code(s): K21.9 - Gastro- esophageal reflux disease without esophagitis (3) Hypertension Hypertension type: unspecified Qualified Code(s): I10 - Essential (primary) hypertension
[2021-07-28 12:29] LABS: Influenza A virus by PCR Negative (Neg); Influenza B virus by PCR Negative (Neg); RSV by PCR Negative (Neg); SARS CoV2 RNA(COVID-19) InHosp NEGATIVE (Negative)
[2021-07-28] MEDS: DOXYCYCLINE HYCLATE 100 MG in DEXTROSE 5% 100 ML IV SCH ×2 (13:07→22:07)
[2021-07-28] MEDS: ACETAMINOPHEN 325 MG TAB PO PRN (13:08)
--- NOTE | 2021-07-28 13:38 | Gastroenterology Progress Note ---
Date of Service July 28, 2021 Assessment & Plan (1) Abnormal CT of the abdomen: Plan: diarrhea, rectal wall thickening on CT. No evidence of C-diff or other bacterias. Antidiarrheals Plan for OP colonoscopy in a few weeks. Our office will call her to arrange. Admission and Anticipated Discharge Date Admission Date: July 23, 2021 Supervising Physician Co-Signing Physician Notes I performed a history and physical examination of the patient today, including specifically on physical exam - soft abdomen. I have discussed the patient's management with the advanced practitioner. Please refer to the nurse practitioner's note for the documented findings and plan of care. No diarrhea today Colonoscopy as OP Recall GI if needed. Subjective 76, female. GI consulted for diarrhea. Stools for C-diff and GI path (-) Pt tells me she continues to pass 3-4 loose brown BMs/day. Denies significant abd pain. Review of Systems Review of Systems: ROS: Gen: + general weakness, fevers, weight loss Eyes: No eye redness, or pain, no recent vision changes Resp: Has some SOB, not currently, on O2 Cardio: No palpitations/irregular beats, no chest pain GI: No abdominal pain, no nausea/vomiting : Denies pain on urination Skin: No jaundice, itching or new rashes Physical Exam Constitutional: well developed, + ill appearing, + obese and cooperative Eyes: PERRL, conjunctivae normal, anicteric sclerae ENMT: external ear and nose normal, oropharynx normal Neck: trachea midline, no thyromegaly Respiratory: normal respiratory effort, lungs clear to auscultation normal respiratory effort and able to speak in complete sentences; no respiratory distress, no labored breathing, does not use accessory muscles and no cough Auscultation: + diminished lung sounds (in the bases); no wheezes Cardiovascular: Rate/Rhythm: regular rate and regular rhythm Gastrointestinal (Abdomen): normal bowel sounds, soft, nontender, no hepatosplenomegaly Inspection/Auscultation: abdomen normal to inspection and normal bowel sounds; abdomen not distended and no abdominal edema Skin: no rashes, warm and dry normal turgor and + pallor Neurologic: PERRL, EOMI, accommodation nl, no face palsy, no dysarthria awake; not confused Psychiatric: A+Ox3, euthymic affect Results & Data ([facility]) Vital Signs (Past 12 Hours) Vital Signs Temp Pulse Pulse Resp BP BP Pulse Ox 07/28/21 12:48 36.9 C 83 15 114/72 93 07/28/21 10:35 77 20 91 07/28/21 08:46 75 07/28/21 07:39 78 20 94 07/28/21 07:35 36.9 C 75 20 123/76 90 07/28/21 03:25 79 18 98 07/28/21 03:00 36.9 C 77 18 136/71 95 07/28/21 02:43 78 07/28/21 02:00 77 22 92 Laboratory Results WBC 6, HB 9.6, HCT 28, the platelets 165, Na 136, K 3.7, Cl Diagnostic Findings non contrast CTAP 07/23/21: Rectal wall thickening is seen, which may be nonspecific secondary to underdistention, however proctitis cannot be entirely excluded. No evidence of diverticulitis or perforation is seen.
[2021-07-29] MEDS: PIPERACILLIN/TAZOBACTAM 4.5 GM in DEXTROSE 5% 100 ML IV SCH ×3 (00:09→16:26)
[2021-07-29 06:43] LABS: Hematocrit (blood only) 29.8 % (37-47); Mean Corpuscular Hemoglobin 30.5 pg (25-34); Mean Corpuscular Hgb Conc 33.6 g/dL (32-36); Mean Corpuscular Volume 90.9 fL (80-100); Mean Platelet Volume 8.8 fL (7.4-10.4); Platelet Count 187 K/uL (130-400); RDW Coefficient of Variation 19.1 % (11.5-14.5); RDW Standard Deviation 62.6 fL (36.4-46.3); Red Blood Count 3.28 M/uL (4.2-5.4); White Blood Count 6.84 K/uL (4.8-10.8)
[2021-07-29 07:09] LABS: BUN Creatinine Ratio 21.5 (10-20); Calcium 8.9 mg/dl (8.5-10.1); Creatinine Clr Calc Pharmacy 34.8 ml/min; Est GFR (African American) 35.1 ml/min; Est GFR (Non-African American) 30.3 ml/min; Potassium 3.6 mmol/L (3.5-5.1)
[2021-07-29 07:12] LABS: Basophils # (auto) 0.02 K/uL (0-0.2); Basophils % (auto) 0.3 %; Immature Granulocytes # (auto) 0.48 K/uL (0.00-0.02); Lymphocytes # (auto) 0.71 K/uL (1.2-3.4); Lymphocytes % (auto) 10.4 %; Monocytes # (auto) 0.08 K/uL (0.11-0.59); Monocytes % (auto) 1.2 %; Neutrophils # (auto) 5.55 K/uL (1.4-6.5); Neutrophils % (auto) 81.1 %
[2021-07-29] MEDS: INSULIN ASPART PER UNIT SC SCH ×4 (08:00→20:33)
[2021-07-29] MEDS: CAPSAICIN CR 0.075% 60 GM TUBE EXT SCH ×4 (08:07→20:36)
[2021-07-29] MEDS: PANTOprazole 40 MG TAB PO SCH ×2 (08:08→20:36)
[2021-07-29] MEDS: ATOVAQUONE 750 MG/5 ML UDC PO SCH ×2 (08:09→20:34)
[2021-07-29] MEDS: predniSONE 20 MG TAB PO SCH ×2 (08:10→20:37)
[2021-07-29] MEDS: AMIODARONE 200 MG TAB PO SCH (08:19)
--- NOTE | 2021-07-29 08:20 | XRay Report ---
XR chest 1V portable CLINICAL HISTORY: hypoxia. Follow-up bilateral airspace opacities COMPARISON STUDY: 07/28/2021 TECHNIQUE: 1 view of the chest FINDINGS: Single frontal view of the chest demonstrates the cardiomediastinal silhouette to be within normal li mits. Compared to previous examination, interstitial and alveolar opacities are again seen bilaterall y and essentially unchanged. No definite bronchograms are identified. There is no evidence for pleura l effusion. There is no evidence for vascular congestion. There is no acute osseous pathology. IMPRESSION: 1. Compared to the previous study, bilateral interstitial and alveolar airspace opacities are again s een and essentially unchanged. ACT 112: Negative or not required by law. Electronically signed by: Fer Bauer M.D. 07/29/2021 8:19 AM
--- NOTE | 2021-07-29 11:00 | Pulmonology Progress Note ---
Date of Service July 29, 2021 Assessment & Plan (1) Acute respiratory failure with hypoxia: (2) Rheumatoid arthritis: (3) Abnormal chest CT: Plan: CT chest 07/27/2021 personally reviewed: Diffuse groundglass opacities appreciated bilaterally upper and lower lobes Patchy consolidative changes appreciated bilateral lower lobes Minimal mediastinal lymphadenopathy Pulmonary opacities are new compared to CT abdomen pelvis done 07/23/2021 --Acute hypoxic respiratory failure Multifactorial Patient is +7.2 L since coming to the hospital --> follow-up 2D echo Patient was on chronic prednisone 60 mg daily May which has been tapering down, she is not any PJP Prophylaxis Patient is also on chronic amiodarone Diffuse alveolar hemorrhage can also look the same. H&H is stable COVID-19 PCR negative x3 Influenza A/B negative x2 Procalcitonin 0.24 BNP: 72 in a patient with BMI 38 LDH 467 CRP 6.82 Beta-D Glucan ordered. Continue with prednisone to 40 mg twice daily for 5 days followed by 40 mg once a day for 5 days followed by 20 mg for 11 days. Along with Protonix to 40 mg twice daily --DAVY Noncompliant with CPAP Continue with CPAP/BiPAP while in the hospital --Rheumatoid arthritis On methotrexate and chronic prednisone Plan: In/out: -1570, urine output 2450, patient is still +5.5 L since coming to the hospital although there was no strict output measured Clinically patient looks little better compared to when I saw her yesterday. Chest x-ray from today shows mild improvement but bilateral infiltrates still persist. Given the bump in creatinine a little bit we will hold Lasix today. We will consider another dose of Lasix tomorrow. Recommend BiPAP nightly We will consider bronchoscopy if no improvement in clinical status in the next 24 hours. Bronchoscopy will be high risk given that she is requiring significant amount of oxygen Case discussed with Dr Shetty Please note the above document was generated using voice recognition software. It may contain grammatical, syntax or spelling errors.Any formal questions or concerns about the content, text or information contained within the body of this dictation should be directly addressed to the provider for clarification. Admission and Anticipated Discharge Date Admission Date: July 23, 2021 Subjective Patient seen and examined at bedside. No acute distress, no dressings overnight Patient was saturating 87% on 30 L, 55% high flow. I went up to 60% her saturation went up to 92% She stated that she is feeling better. She still complains of cough not bringing any phlegm up. Denies any chest pain. She stated she got good night sleep. No nausea or vomiting. Fair appetite. Review of Systems Review of Systems: All systems reviewed & are unremarkable except as noted in Subjective Physical Exam Physical Exam: Constitutional: No acute distress HEENT: EOMI, PERRLA, thick neck Respiratory system: Decreased air entry bilaterally, no wheeze, no, positive crackles bilaterally CVS: S1-S2 positive, no murmurs or gallops Abdomen: Soft, nontender, nondistended, positive bowel sounds x4, obese Extremities: +2 pulses bilaterally radialis/ dorsalis pedis, no cyanosis, +1 pitting edema bilateral lower extremity, ecchymosis appreciated bilateral dorsal surfaces of upper extremity Neuro: Awake alert oriented x3 Psych: Normal mood and affect G/U: Positive Campbell Skin: no rashes, warm and dry Lymphatic: no cervical or axillary lymphadenopathy Results & Data Results & Data ([facility]) Vital Signs (Past 12 Hours) Vital Signs Temp Pulse Pulse Resp BP BP Pulse Ox 07/29/21 08:18 140/75 07/29/21 08:09 36.6 C 67 18 103/61 93 07/29/21 07:20 60 07/29/21 07:15 63 24 90 07/29/21 04:21 36.8 C 60 18 99/57 L 93 07/29/21 00:15 07/28/21 23:44 66 07/28/21 23:18 36.6 C 65 18 119/66 95 Pulse Ox 07/29/21 08:18 07/29/21 08:09 07/29/21 07:20 07/29/21 07:15 07/29/21 04:21 07/29/21 00:15 95 07/28/21 23:44 07/28/21 23:18 Laboratory Results 07/29/21 05:52 07/29/21 05:52 PG Care Time/CCT Total # of Minutes Spent Total Time Spent with Patient: Total time spent is greater than 50% in coordination of care (as documented) at patient's floor/unit and/or counseling patient: Coding Level of Care Code 69262 Subseq Hosp Care Lvl 3 Diagnoses Acute respiratory failure with hypoxia J96.01 Rheumatoid arthritis M06.[address] R93.89
[2021-07-29] MEDS: ACETAMINOPHEN 325 MG TAB PO PRN ×3 (11:59→22:29)
[2021-07-29] MEDS: DOXYCYCLINE HYCLATE 100 MG in DEXTROSE 5% 100 ML IV SCH ×2 (12:02→22:29)
--- NOTE | 2021-07-29 15:40 | Hospitalist Progress Note ---
Date of Service July 29, 2021 Assessment & Plan (1) Acute respiratory failure with hypoxia: Plan: Summary: Cecilia is a 76-year-old female who presented for management of colitis which did clinically improve, but who had rapidly worsening pulmonary status and oxygen requirements. CAT scan showed bilateral groundglass opacities and significant progression of pulmonary disease compared to inferior lobes seen on abdominal CT 07/23. Patient did quickly uptrend to high flow requirements. Covid test x3 have been negative, bio fire was negative, has a negative pro-Martin with increased CRP. Prior to admission patient was immunosuppressed as was on 60 mg of prednisone daily for 6 months in addition to methotrexate. Differential includes infectious for which ID has been consulted, diffuse alveolar hemorrhage for which DOAC for A. fib has been held, with some concern for an element of volume overload with edema, although has intravascularly depleted with a slight rise in creatinine with Lasix 07/29. Patient with uptrending oxygen requirements, currently on 2-4 L oxygen mask CXR: Bilateral mid/lower lung infiltrate suspicious for aspiration pneumonitis versus pneumonia - CT-C: Multifocal groundglass consolidation is seen throughout both lungs, gr eatest at the lung bases. This represents a significant change from 07/23/2021 and could represent multifocal pneumonia and/or pulmonary edema. Clinical correlation will be essential and radiographic follow-up to resolution is recommended. Trace pleural fluid is seen on the right. Previously clinically well on room air, some desats with exertion -CT with rapid clinical worsening compared to base of lungs visible on 07/23 chest x-ray. DDx does include pulmonary edema, pt is 4 L net positive, but this is in context of initial sepsis rehydration on admission and is now hypotensive with uptrending creatinine, dry mucous membranes although third spacing/leg edema at baseline. She was accidentally on a 60 mg prednisone daily dose for over 6 months and commendation with methotrexate so she is at risk for opportunistic pathogens, although would not expect PGP/fungal progression to produce the change seen in the last 4 days. Fungitell pending. Will expand to Zosyn with atypical coverage with doxycycline, azithromycin deferred due to intermittently borderline QT and concurrent amiodarone. Defer MRSA coverage as MRSA nares is negative Sputum culture pending Procalcitonin negative, CRP elevated. Bio fire negative MRSA nare negative Patient chronically on steroids and MTX, is at increased risk for opportunistic pathogens. As above. 07/27 In afternoon hypotensive to 93/62, responded to IV fluids, downtrending to 98/60, again improved to 112/67 with 500 cc bolus with oxygen requirements approximately 3 L nasal cannula. -07/28 blood pressure has improved to 120/76, continues to have signs of edema. Creatinine downtrending, no fever/chills/rigors overnight. With blood pressure improvement trial 20 mg Lasix as is now several liters positive from admission, was admitted point depleted. Pulmonary consulted given acute worsening. Recommended to start on atovaquone 750 twice daily for P STARR prevention pending additional work-up (patient does have a skin urticarial itchy reaction to Bactrim in the past), infectious disease consultation, sputum culture. Xarelto held as diffuse alveolar hemorrhage could present similarly. Will trial 20 mg of Lasix and follow clinically. Consider bronchoscopy if no improvement in next 24 to 48 hours, although patient is high risk for decompensation. Patient did start prednisone taper at the end of May/beginning of June, recommended to increase prednisone to 40 mg twice daily for 5 days then moved to 40 mg a day for 5 days, followed 20 mg for 11 days. PPI prophylaxis increased for this. A ppreciate recommendations. BNP normal, troponin repeat normal, patient without chest pain/clinical signs of ACS. 07/29 - XR unchanged, pt clinically slightlyimproved. High flow improved to 30/55. BP improved. ID consult reviewed: Can continue doxy and Zosyn for now. Recommended for bronchoscopy and specimen for galatomannan, pneumocystis, Legionella, AFB, fungal, path. Follow Fungitell serum test. Legionella urine antigen, pneumococcal urine antigen not available in house, may consider histoplasma/blasto urine antigen and Anaplasma serum PCR.? Infection versus RA associated versus drug-induced ILD, is at high risk for opportunistic infection. Patient is clinically improving, will defer bronc and follow serially today. Legionalla ag ordered, pneumonoccal antigen is a send out. Cr did rise, altough some improvement with edema. defer additional lasix at this time. (2) Acute proctitis: Plan: Acute proctitis/acute lower quadrant abdominal pain - 07/27- Creatinine uptrending, BUN/creatinine ratio increased, elevated pulse. Patient is hypoalbuminemic with third spacing/edema, but intravascularly depleted. Fluids as below, plus boost CTA/P: Rectal wall thickening is seen, which may be nonspecific secondary to underdistention, however proctitis cannot be entirely excluded. No evidence of diverticulitis or perforation is seen. Mesenteric ultrasound:Elevated peak systolic velocities in the celiac artery suggestive of stenosis, no mesenteric or arterial occlusion appreciated GI consulted. Recommend stool studies with C. difficile and culture, if negative MiraLAX 1 capful daily and Bentyl 10 mg 3 times daily. May resume diet. Lactate resolved, no signs of ongoing mesenteric ischemia. In ER patient with rigors and severe abdominal pain during exam. Received Cipro/Flagyl in ER and was admitted on ertapenem. This was discontinued as patient had initial resolution of symptoms, then antibiotics resumed as noted above Stool PCR, C. difficile negative Patient at risk for mesenteric ischemia with celiac artery stenosis as above, although no acute occlusion. No acute indication for vascular intervention, vascular will follow as outpatient -Lactate resolved following admission with care above -Ongoing work-up for respiratory failure as above (3) Celiac artery stenosis: Plan: Noted on Dopplers as above, no acute occlusion Outpatient follow-up with vascular, no inpatient intervention recommended at t his time (4) Abdominal pain, acute, bilateral lower quadrant: Plan: See above (5) Acute kidney injury superimposed on CKD: Plan: - Creatinine 1.91 upon admission, base 1.13 Patient initially improving, subsequently worsening with respiratory symptoms concerning for pneumonia Creatinine slight uptrend to 1.63 following lasix Boost, patient hypoalbuminemic (6) Paroxysmal atrial fibrillation: Plan: Paroxysmal atrial fibrillation/hypertension- Hold lisinopril, HCTZ. Continue Xarelto Continue Amio (7) Rheumatoid arthritis: Plan: Patient has been on methotrexate and chronic prednisone use for several months Pred held on admission, ?underlying steroid dependence. Resumed w/ stress dose as above MTX held for GI eval/potential infection as above (8) GERD (gastroesophageal reflux disease): Plan: Place on famotidine 20 mg IV every 12 hours (9) Obstructive sleep apnea: Plan: CPAP at bedtime as needed (10) Diabetes mellitus, type 2: Plan: Hold Metformin Glucose checks AC/at bedtime SSI Last A1c well controlled (11) Hypertension: Plan: See above Admission and Anticipated Discharge Date Admission Date: July 23, 2021 Renan Brooks seen the bedside this morning, and late morning on reassessment. She reports that she did have a better night last night than previous. She feels a little bit better today, still substantially of her baseline. No fever/chills. Is not short of breath at time of assessment, but remains on high flow oxygen. Has not had chest pain, chest pressure, difficulty breathing. No nausea/vomi ting/diarrhea. Has been urinating regularly, and reports that she urinated a lot yesterday with some improvement in her lower extremity edema. Review of Systems Review of Systems: All systems reviewed & are unremarkable except as noted in Subjective Physical Exam Physical Exam: General: A&Ox3. NAD. Cooperative. On high flow HEENT: Atraumatic, normocephalic. Vision and hearing grossly intact. Pulm: Diffuse crackles of the midlung and base bilaterally, no wheezes no rhonchi. Symmetrical chest rise. No increase in work of breathing. No respiratory distress. Cardiac: RRR, -mrg. Radial pulses intact and symmetrical. Abdominal: No abdominal tenderness, abdomen is without guarding or rebound, improved from prior, bowel sounds intact. Extremities: Bilateral distal upper > lower pitting edema, improved from prior Pressure area on right anterior valdez with Aquacel intact, left anterior valdez without dressing no weeping or erythema Results & Data Results & Data ([facility]) Vital Signs (Past 12 Hours) Vital Signs Temp Pulse Pulse Resp BP BP Pulse Ox 07/29/21 15:36 36.6 C 64 18 117/77 91 07/29/21 15:21 68 07/29/21 11:39 36.4 C L 69 20 129/72 92 07/29/21 11:32 78 25 H 90 07/29/21 08:18 140/75 07/29/21 08:09 36.6 C 67 18 103/61 93 07/29/21 07:20 60 07/29/21 07:15 63 24 90 07/29/21 04:21 36.8 C 60 18 99/57 L 93 PG Care Time/CCT Total # of Minutes Spent Total Time Spent with Patient: Total time spent is greater than 50% in coordination of care (as documented) at patient's floor/unit and/or counseling patient: Coding Level of Care Code 45793 Subseq Hosp Care Lvl 3 Diagnoses Acute respiratory failure with hypoxia J96.01 Acute proctitis K62.89 Celiac artery stenosis I77.1 Abdominal pain, acute, bilateral lower quadrant R10.31; R10.32 Acute kidney injury superimposed on CKD N17.9; N18.9 Paroxysmal atrial fibrillation I48.0 Rheumatoid arthritis M06.9 GERD (gastroesophageal reflux disease) K21.9 Esophagitis presence: without esophagitis Obstructive sleep apnea G47.33 Diabetes mellitus, type 2 E11.22; N18.31 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 use Diabetes mellitus complication status: with kidney complications Diabetes mellitus complication detail: with chronic kidney disease Chronic kidney disease stage: stage 3 (moderate) Chronic kidney disease stage 3 subtype: stage 3a (GFR 45-59) Hypertension I10 Hypertension type: unspecified (1) GERD (gastroesophageal reflux disease) Esophagitis presence: without esophagitis Qualified Code(s): K21.9 - Gastro- esophageal reflux disease without esophagitis (2) Diabetes mellitus, type 2 Diabetes mellitus mcc insulin use: without regional intermodal truck driver use Diabetes mellitus complication status: with kidney complications Diabetes mellitus complication detail: with chronic kidney disease Chronic kidney disease stage: stage 3 (moderate) Chronic kidney disease stage 3 subtype: stage 3a (GFR 45-59) Qualified Code(s): E11.22 - Type 2 diabetes mellitus with diabetic chronic kidney disease; N18.31 - Chronic kidney disease, stage 3a (3) Hypertension Hypertension type: unspecified Qualified Code(s): I10 - Essential (primary) hypertension
[2021-07-30] MEDS: PIPERACILLIN/TAZOBACTAM 4.5 GM in DEXTROSE 5% 100 ML IV SCH ×3 (00:39→17:32)
[2021-07-30 06:40] LABS: Hematocrit (blood only) 29.6 % (37-47); Mean Corpuscular Hgb Conc 33.8 g/dL (32-36); Mean Corpuscular Volume 91.6 fL (80-100); Mean Platelet Volume 8.7 fL (7.4-10.4); Nucleated RBC # (auto) 0.05 K/uL (0-0); Nucleated RBC % (auto) 0.5 %; Platelet Count 206 K/uL (130-400); RDW Coefficient of Variation 18.7 % (11.5-14.5); Red Blood Count 3.23 M/uL (4.2-5.4); White Blood Count 8.98 K/uL (4.8-10.8)
[2021-07-30 07:05] LABS: ALC (manual) 0.23 K/uL (1.2-3.4); ANC (manual) 8.35 K/uL (1.4-6.5); Lymphocytes # (manual) 0.23 K/uL (1.2-3.4); Lymphocytes % (manual) 2.6 %; Monocytes # (manual) 0.16 K/uL (0.11-0.59); Monocytes % (manual) 1.8 %; Myelocytes # (manual) 0.23 K/uL (0-0); Myelocytes % (manual) 2.6 %; Neutrophils # (manual) 8.35 K/uL (1.4-6.5); Polychromasia 1+
[2021-07-30 07:07] LABS: Albumin Globulin Ratio 1.2 (0.9-2); Albumin Level 2.6 gm/dl (3.4-5.0); BUN Creatinine Ratio 25.7 (10-20); Bilirubin,Total 0.5 mg/dl (0.2-1.0); Calcium 8.9 mg/dl (8.5-10.1); Creatinine Clr Calc Pharmacy 37.7 ml/min; Est GFR (African American) 38.2 ml/min; Globulin 2.1 gm/dl (2.5-4.0); Potassium 3.6 mmol/L (3.5-5.1); Total Protein 4.7 gm/dl (6.0-8.3)
--- NOTE | 2021-07-30 07:53 | Hospitalist Progress Note ---
Date of Service July 30, 2021 Assessment & Plan (1) Acute respiratory failure with hypoxia: Plan: Summary: Cecilia is a 76-year-old female who presented for management of colitis which did clinically improve, but who had rapidly worsening pulmonary status and oxygen requirements. CAT scan showed bilateral groundglass opacities and significant progression of pulmonary disease compared limited view of lungs on abdominal CT 07/23. Pt rapidly progressed to High Flow oxygen. Covid test x3 have been negative, bio fire was negative, has a negative pro- Martin with increased CRP. She is chronically immunosuppressed as was on 60 mg of prednisone daily for 6 months in addition to methotrexate for RA ID has been consulted 07/29 recommends continuation of Zosyn and doxycycline, Defer MRSA coverage as MRSA nares is negative Consider bronchoscopy if done send specimen for galactomannan pneumocystis Legionella AFB fungal smears and pathology Follow-up on serum Fungitell, Legionella urine antigen, pneumococcal urine antigen, consider histoplasma and blasto my CDs urine antigen and Anaplasma serum PCR. Patient also previously on amiodarone Pulmonary medicine following recommend steroid taper and aggressive diuresis Sputum culture pending Recommended to start on atovaquone 750 twice daily for PJP prevention pending additional work-up (patient does have a skin urticarial itchy reaction to Bactrim in the past), Xarelto held as diffuse alveolar hemorrhage could present similarly. Consider bronchoscopy if no improvement in next 24 to 48 hours, although patient is high risk for decompensation. (2) Acute proctitis: Plan: Acute proctitis/acute lower quadrant abdominal pain, given cipro/flagyl in ER admitted on Ertapenem, now on Zosyn/Doxy Stool PCR, C. difficile negative Patient at risk for mesenteric ischemia with celiac artery stenosis, although no acute occlusion. No acute indication for vascular intervention, vascular will follow as outpatient -Lactate resolved following admission (3) Celiac artery stenosis: Plan: Noted on Dopplers as above, no acute occlusion Outpatient follow-up with vascular, no inpatient intervention recommended at this time (4) Abdominal pain, acute, bilateral lower quadrant: Plan: See above (5) Acute kidney injury superimposed on CKD: Plan: - Creatinine 1.91 upon admission, base 1.13( h/o CKD 3) Patient initially improving, subsequently worsening with respiratory symptoms concerning for pneumonia Creatinine slight uptrend to 1.63 following lasix Boost, patient hypoalbuminemic (6) Paroxysmal atrial fibrillation: Plan: Paroxysmal atrial fibrillation/hypertension- Hold lisinopril, HCTZ. Continue Xarelto Continue Amio (7) Rheumatoid arthritis: Plan: Patient has been on methotrexate and chronic prednisone use for several months Pred held on admission, ?underlying steroid dependence. Resumed w/ stress dose as above MTX held for GI eval/potential infection as above (8) GERD (gastroesophageal reflux disease): Plan: Place on famotidine 20 mg IV every 12 hours (9) Obstructive sleep apnea: Plan: CPAP at bedtime as needed (10) Diabetes mellitus, type 2: Plan: Hold Metformin Glucose checks AC/at bedtime SSI Last A1c well controlled (11) Hypertension: Plan: See above Admission and Anticipated Discharge Date Admission Date: July 23, 2021 Subjective pt is uncomfortable mostly right shoulder, Patient was on [place] flow 40 L 65% She did not have a good night sleep due to arthralgia. She did have home CPAP delivered to her but unfortunately she did not use it overnight. Review of Systems Review of Systems: Moderate respiratory distress and fatigue no headache, no visual changes no speech or swallowing issues no chest pain, pressure or palpitations Patient has her shortness of breath recovered by the high flow. no abdominal pain, nausea or vomiting, diarrhea or constipation no dysuria, hematuria or frequency no focal joint pain diffuse third space swelling Significant right shoulder pain, no back pain no radicular pain Skin is with persistent bruises from prolonged hospitalization no focal signs of weakness or numbness or altered sensation no complaints of anxiety or depression.. Physical Exam Physical Exam: The patient appeared moderately ill definitely swollen with third space Vital signs as documented. Head exam is normocephalic atraumatic Neck is without JVD, thyromegaly, or carotid bruits. Lungs are coarse bilaterally diminished throughout Cardiac exam, Rhythm is regular.. No murmurs, rubs or gallops. Abdominal exam reveals normal bowel sounds, soft non tender, no masses Extremities are 1-2+ edematous bilaterally upper and lower extremities Skin is with bruises or rashes Psychologically is without concerns for anxiety or depression.. Results & Data Results & Data ([facility]) Vital Signs (Past 12 Hours) Vital Signs Temp Pulse Resp BP Pulse Ox 07/30/21 07:38 67 24 89 L 07/30/21 07:03 98.1 F 82 17 114/72 90 07/30/21 06:32 62 20 92 07/30/21 03:48 97.9 F 65 15 128/88 92 07/30/21 03:15 59 L 20 90 07/29/21 22:51 98.1 F 64 16 133/71 90 07/29/21 21:00 66 20 94 PG Care Time/CCT Total # of Minutes Spent Total Time Spent with Patient: Total time spent is greater than 50% in coordination of care (as documented) at patient's floor/unit and/or counseling patient: Coding Level of Care Code 68866 Subseq Hosp Care Lvl 3 Diagnoses Acute respiratory failure with hypoxia J96.01 Acute proctitis K62.89 Celiac artery stenosis I77.1 Abdominal pain, acute, bilateral lower quadrant R10.31; R10.32 Acute kidney injury superimposed on CKD N17.9; N18.9 Paroxysmal atrial fibrillation I48.0 Rheumatoid arthritis M06.9 GERD (gastroesophageal reflux disease) K21.9 Esophagitis presence: without esophagitis Obstructive sleep apnea G47.33 Diabetes mellitus, type 2 E11.22; N18.31 Chronic kidney disease stage: stage 3 (moderate) Chronic kidney disease stage 3 subtype: stage 3a (GFR 45-59) Diabetes mellitus complication detail: with chronic kidney disease Diabetes mellitus complication status: with kidney complications Diabetes mellitus mcc insulin use: without mcc use Hypertension I10 Hypertension type: unspecified (1) Diabetes mellitus, type 2 Chronic kidney disease stage: stage 3 (moderate) Chronic kidney disease stage 3 subtype: stage 3a (GFR 45-59) Diabetes mellitus complication detail: with chronic kidney disease Diabetes mellitus complication status: with kidney complications 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
[2021-07-30] MEDS: INSULIN ASPART PER UNIT SC SCH ×4 (07:55→20:22)
[2021-07-30] MEDS ORDERED: FUROSEMIDE INJ 20 MG/2 ML VIAL IV ONE (07:56)
--- NOTE | 2021-07-30 07:59 | Pulmonology Progress Note ---
Date of Service July 30, 2021 Assessment & Plan (1) Acute respiratory failure with hypoxia: (2) Rheumatoid arthritis: (3) Abnormal chest CT: Plan: CT chest 07/27/2021 personally reviewed: Diffuse groundglass opacities appreciated bilaterally upper and lower lobes Patchy consolidative changes appreciated bilateral lower lobes Minimal mediastinal lymphadenopathy Pulmonary opacities are new compared to CT abdomen pelvis done 07/23/2021 --Acute hypoxic respiratory failure Multifactorial Patient is +7.2 L since coming to the hospital Patient was on chronic prednisone 60 mg daily May which has been tapering down, she is not any PJP Prophylaxis Patient is also on chronic amiodarone Diffuse alveolar hemorrhage can also look the same. H&H is stable. Has been on hold since 07/28/2021 COVID-19 PCR negative x3 Influenza A/B negative x2 Procalcitonin 0.24 BNP: 72 in a patient with BMI 38 LDH 467 CRP 6.82 Beta-D Glucan ordered. Continue with prednisone to 40 mg twice daily for 5 days followed by 40 mg once a day for 5 days followed by 20 mg for 11 days. Along with Protonix to 40 mg twice daily --DAVY Noncompliant with CPAP Continue with CPAP/BiPAP while in the hospital --Rheumatoid arthritis On methotrexate and chronic prednisone Plan: In/out: +235, urine output 875 Patient's oxygen requirement has increased compared to yesterday. There is no significant change in patient's clinical status Chest x-ray does not show any significant change compared to day before yesterday. ID note reviewed. We will plan to do a bronchoscopy tomorrow. I did discuss this with patient as well as patient's [id number] Joanna who was present at bedside. I did make them both aware that patient is very high risk for intubation given the high oxygen requirement They understand and would like to go ahead with the procedure PT/INR ordered 20 mg of Lasix given to the patient today Case discussed with Dr Shetty Please note the above document was generated using voice recognition software. It may contain grammatical, syntax or spelling errors.Any formal questions or concerns about the content, text or information contained within the body of this dictation should be directly addressed to the provider for clarification. Admission and Anticipated Discharge Date Admission Date: July 23, 2021 Subjective Patient seen and examined at bedside. No acute distress. Patient was on 80% FiO2, 40 L saturating 98% I went down to 60% patient desaturated to 87%. She was able to maintain her saturation 91-92% on 65% FiO2, 40 L She stated that she is doing okay when it comes to her breathing She did not have a good night sleep. She did have home CPAP delivered to her but unfortunately she did not use it overnight. Denies any chest pain. Does complain of cough and nasal congestion. Fair appetite Review of Systems Review of Systems: All systems reviewed & are unremarkable except as noted in Subjective Physical Exam Physical Exam: Constitutional: No acute distress HEENT: EOMI, PERRLA, thick neck Respiratory system: Decreased air entry bilaterally, no wheeze, no rhonchi positive crackles bilaterally CVS: S1-S2 positive, no murmurs or gallops Abdomen: Soft, nontender, nondistended, positive bowel sounds x4, obese Extremities: +2 pulses bilaterally radialis/ dorsalis pedis, no cyanosis, +1 pitting edema bilateral lower extremity, ecchymosis appreciated bilateral dorsal surfaces of upper extremity Neuro: Awake alert oriented x3 Psych: Normal mood and affect G/U: Positive Campbell Skin: no rashes, warm and dry Lymphatic: no cervical or axillary lymphadenopathy Results & Data Results & Data ([facility]) Vital Signs (Past 12 Hours) Vital Signs Temp Pulse Resp BP Pulse Ox 07/30/21 07:38 67 24 89 L 07/30/21 07:03 36.7 C 82 17 114/72 90 07/30/21 06:32 62 20 92 07/30/21 03:48 36.6 C 65 15 128/88 92 07/30/21 03:15 59 L 20 90 07/29/21 22:51 36.7 C 64 16 133/71 90 07/29/21 21:00 66 20 94 Laboratory Results 07/30/21 06:14 07/30/21 06:14 PG Care Time/CCT Total # of Minutes Spent Total Time Spent with Patient: Total time spent is greater than 50% in coordination of care (as documented) at patient's floor/unit and/or counseling patient: Coding Level of Care Code 55520 Subseq Hosp Care Lvl 3 Diagnoses Acute respiratory failure with hypoxia J96.01 Rheumatoid arthritis M06.[address] R93.89
--- NOTE | 2021-07-30 08:50 | XRay Report ---
XR chest 1V portable HISTORY: Hypoxia. Follow-up. COMPARISON: Chest 07/29/2021. FINDINGS: There are low lung volumes. No pneumothorax. Trace bilateral pleural effusions. The heart r emains mildly enlarged. There is diffuse interstitial thickening and hazy bilateral airspace opacitie s. This remains unchanged. IMPRESSION: No change in the interstitial thickening and hazy bilateral airspace opacities. ACT 112: Negative or not required by law. Electronically signed by: Jay Arnold M.D. 07/30/2021 8:48 AM
[2021-07-30] MEDS: AMIODARONE 200 MG TAB PO SCH (09:03)
[2021-07-30] MEDS: ATOVAQUONE 750 MG/5 ML UDC PO SCH ×2 (09:03→20:07)
[2021-07-30] MEDS: predniSONE 20 MG TAB PO SCH ×2 (09:04→20:10)
[2021-07-30] MEDS: PANTOprazole 40 MG TAB PO SCH ×2 (09:04→20:10)
[2021-07-30] MEDS: CAPSAICIN CR 0.075% 60 GM TUBE EXT SCH ×4 (09:04→20:12)
[2021-07-30] MEDS: CETIRIZINE HCL 10 MG TABLET PO SCH (11:08)
[2021-07-30 11:43] LABS: Prothrombin Time 10.3 Seconds (9.0-12.0)
[2021-07-30] MEDS: DOXYCYCLINE HYCLATE 100 MG in DEXTROSE 5% 100 ML IV SCH ×2 (13:18→22:44)
[2021-07-31] MEDS: PIPERACILLIN/TAZOBACTAM 4.5 GM in DEXTROSE 5% 100 ML IV SCH ×3 (00:50→17:14)
[2021-07-31 07:33] LABS: Creatinine Clr Calc Pharmacy 38.3 ml/min; Est GFR (African American) 39.1 ml/min; Est GFR (Non-African American) 33.8 ml/min
[2021-07-31] MEDS: INSULIN ASPART PER UNIT SC SCH ×4 (07:54→20:46)
[2021-07-31] MEDS ORDERED: FUROSEMIDE INJ 20 MG/2 ML VIAL IV ONE ×2 (08:04→16:45)
[2021-07-31] MEDS: ACETAMINOPHEN 325 MG TAB PO PRN ×2 (08:17→20:52)
[2021-07-31] MEDS: PANTOprazole 40 MG TAB PO SCH ×2 (08:20→20:47)
[2021-07-31] MEDS: CETIRIZINE HCL 10 MG TABLET PO SCH (08:20)
[2021-07-31] MEDS: ATOVAQUONE 750 MG/5 ML UDC PO SCH ×2 (08:21→20:48)
[2021-07-31] MEDS: AMIODARONE 200 MG TAB PO SCH (08:22)
[2021-07-31] MEDS: predniSONE 20 MG TAB PO SCH ×2 (08:24→20:47)
[2021-07-31] MEDS: DICLOFENAC SOD 1% GEL 100 GM TUBE EXT PRN ×3 (10:07→20:48)
[2021-07-31] MEDS: CAPSAICIN CR 0.075% 60 GM TUBE EXT SCH ×4 (10:19→20:48)
[2021-07-31] MEDS ORDERED: RAPID SEQUENCE INDUCTION BAG ONE (11:26)
[2021-07-31] MEDS ORDERED: fentaNYL citrate 100 MCG/2 ML VIAL ONE (12:02)
[2021-07-31] MEDS ORDERED: MIDAZOLAM HCL 5 MG/ML 1 ML VIAL ONE (12:02)
[2021-07-31] MEDS ORDERED: MIDAZOLAM HCL 1 MG/ML 2ML VIAL IV STA ×2 (13:09→13:12)
[2021-07-31] MEDS ORDERED: fentaNYL citrate 100 MCG/2 ML VIAL IV ONE ×2 (13:10→13:12)
--- NOTE | 2021-07-31 13:20 | Procedure Note ---
Procedure Note: Bronchoscopy Procedure PREOPERATIVE DIAGNOSIS: Diffuse alveolar infiltrates POSTOPERATIVE DIAGNOSIS: Diffuse alveolar infiltrate PROCEDURE PERFORMED: Flexible fiberoptic bronchoscopy with BAL and transbronchial biopsies COMPLICATIONS: None. INDICATION: Rule out any infectious etiology PROCEDURE: After obtaining an informed consent, the patient was brought to the ICU. The patient had appropriate oxygen, blood pressure, heart rate, and respiratory rate monitoring applied and monitored continuously throughout the p rocedure. Supplemental oxygen via BiPAP 100% FiO2 with adequate saturations achieved. Topical anesthesia with nebulized 1% lidocaine was achieved. Subsequent to this, the patient was premedicated with 3 mg of midazolam and 50 mcg of fentanyl. Upper Airway: The oropharynx and larynx were well visualized and showed normal oral mucosa There was normal vocal cord motion without masses or lesions. Additional topical anesthesia with 1% lidocaine was applied to the trachea and murray. The trachea appeared normal.The bronchoscope was then advanced through the murray, which was sharp. The scope was then advanced into the right main stem and each segment, subsegement in the right upper lobe, right middle lobe and right lower lobe were visualized. There is very minimal amount of secretion which were suctioned out. There were no other findings including evidence of mass, anatomic distortions, or hemorrhage. The bronchoscope was subsequently withdrawn and advanced into the left mainstem. Again, each segment and subsegment was well visualized. No specific masses or other lesions were identified throughout the tracheobronchial tree on the left. There were minimal amount of secretion which were suctioned out The bronchoscope was then wedged in the right middle lobe and bronchoalveolar lavage samples were obtained. 70 ml of saline was instilled and 30 ml of fluid was aspirated back.The bronchoscope was withdrawn and the area was suctioned clear. The bronchoscope was then wedged in the lingula inferior lobe and bronchoalveolar lavage samples were obtained. 50 ml of saline was instilled and 30 ml of fluid was aspirated back.The bronchoscope was withdrawn and the area was suctioned clear. The bronchoscope was then re-advanced into the left lower lobe anterior followed by medial segment and 4 transbronchial biopsies were taken. Minimal hemorrhage was identified and suctioned clear without difficulty. The bronchoscope was then withdrawn to the mainstem. The area was suctioned clear. The bronchoscope was then withdrawn. The patient tolerated the procedure well without evidence of desaturation or complications. Bronchoalveolar lavage samples were sent for cell count, Gram stain and bacterial culture, AFB culture and smear, fungal culture and smear, galactomannan and cytology. Transbronchial biopsies were sent for tissue culture (bacteria, AFB and fungal) and pathology. Recommendations: Follow-up chest x-ray Follow-up cytology and pathology Please note the above document was generated using voice recognition software. It may contain grammatical, syntax or spelling errors.Any formal questions or concerns about the content, text or information contained within the body of this dictation should be directly addressed to the provider for clarification.
--- NOTE | 2021-07-31 13:24 | Pulmonology Progress Note ---
Date of Service July 31, 2021 Assessment & Plan (1) Acute respiratory failure with hypoxia: (2) Rheumatoid arthritis: (3) Abnormal chest CT: Plan: CT chest 07/27/2021 personally reviewed: Diffuse groundglass opacities appreciated bilaterally upper and lower lobes Patchy consolidative changes appreciated bilateral lower lobes Minimal mediastinal lymphadenopathy Pulmonary opacities are new compared to CT abdomen pelvis done 07/23/2021 --Acute hypoxic respiratory failure Multifactorial Patient is +7.2 L since coming to the hospital Patient was on chronic prednisone 60 mg daily May which has been tapering down, she is not any PJP Prophylaxis Patient is also on chronic amiodarone Diffuse alveolar hemorrhage can also look the same. H&H is stable. Has been on hold since 07/28/2021 COVID-19 PCR negative x3 Influenza A/B negative x2 Procalcitonin 0.24 BNP: 72 in a patient with BMI 38 LDH 467 CRP 6.82 Beta-D Glucan ordered. Continue with prednisone to 40 mg twice daily for 5 days followed by 40 mg once a day for 5 days followed by 20 mg for 11 days. Along with Protonix to 40 mg twice daily --DAVY Noncompliant with CPAP Continue with CPAP/BiPAP while in the hospital --Rheumatoid arthritis On methotrexate and chronic prednisone Plan: In/out: -1.5 L At time of examination patient was on 65% FiO2, 40 L saturating 89-90% Given the significant oxygen requirement and patient's critical status I want her transferred to the ICU and perform bronchoscopy there Risk and benefits of the procedure explained to the patient in depth. She and her [id number] both are agreeable to it. PT/INR within normal limit We will give another 20 mg of Lasix Case discussed with Dr Renee I have personally spent 35 minutes of critical care time in the direct management of this patient. This is a life/limb threatening event. This includes time spent evaluating patient, direct bedside care, chart review, placing orders, interpretation of diagnostic studies, discussion with consultants, patient, and family members, as well as other required patient management activities. This time is exclusive of all separately billable procedures, and teaching time and separate from and in addition to any other critical care service time. Please note the above document was generated using voice recognition software. It may contain grammatical, syntax or spelling errors. Admission and Anticipated Discharge Date Admission Date: July 23, 2021 Subjective Patient seen exam bedside. No acute distress She was on 75% FiO2, 40 L high flow saturating 89-90% She said that she is feeling better with the therapy today. Did not chest pain Has been coughing up bringing up any phlegm Does complain of dry mouth. Nasal congestion has improved Review of Systems Review of Systems: All systems reviewed & are unremarkable except as noted in Subjective Physical Exam 2 Physical Exam: Constitutional: No acute distress HEENT: EOMI, PERRLA, thick neck Respiratory system: Decreased air entry bilaterally, no wheeze, no rhonchi positive crackles bilaterally CVS: S1-S2 positive, no murmurs or gallops Abdomen: Soft, nontender, nondistended, positive bowel sounds x4, obese Extremities: +2 pulses bilaterally radialis/ dorsalis pedis, no cyanosis, +1 pitting edema bilateral lower extremity, ecchymosis appreciated bilateral dorsal surfaces of upper extremity Neuro: Awake alert oriented x3 Psych: Normal mood and affect G/U: Positive Campbell Skin: no rashes, warm and dry Lymphatic: no cervical or axillary lymphadenopathy Results & Data Results & Data ([facility]) Vital Signs (Past 12 Hours) Vital Signs Temp Pulse Pulse Resp BP BP BP 07/31/21 12:00 36.4 C L 07/31/21 11:30 61 25 H 123/86 07/31/21 11:00 53 L 25 H 154/79 H 07/31/21 10:30 56 L 23 147/83 H 07/31/21 10:00 60 23 147/92 H 07/31/21 09:43 36.4 C L 07/31/21 09:31 60 16 158/88 H 07/31/21 09:30 60 23 07/31/21 09:25 59 L 19 131/75 07/31/21 09:00 62 07/31/21 07:20 64 18 07/31/21 07:14 36.6 C 64 20 121/64 07/31/21 04:14 60 20 07/31/21 03:15 36.6 C 61 21 141/61 H Pulse Ox 07/31/21 12:00 07/31/21 11:30 100 07/31/21 11:00 99 07/31/21 10:30 99 07/31/21 10:00 99 07/31/21 09:43 03/24/22 09:31 98 07/31/21 09:30 97 07/31/21 09:25 07/31/21 09:00 07/31/21 07:20 94 07/31/21 07:14 94 07/31/21 04:14 93 07/31/21 03:15 96 Laboratory Results 07/30/21 06:14 07/31/21 05:53 PG Care Time/CCT Total # of Minutes Spent Total Time Spent with Patient: Total time spent is greater than 50% in coordination of care (as documented) at patient's floor/unit and/or counseling patient: Coding Level of Care Code Critical Care 1st 30-74 mins Diagnoses Acute respiratory failure with hypoxia J96.01 Rheumatoid arthritis M06.[address] R93.89 Time Spent (min) 35
--- NOTE | 2021-07-31 13:41 | XRay Report ---
XR chest 1V portable CLINICAL HISTORY: post bronch. Evaluate cardiopulmonary status COMPARISON STUDY: 07/30/2021 TECHNIQUE: 1 view of the chest FINDINGS: Single frontal view of the chest demonstrates the heart to again be mildly enlarged. Compared to prev ious examination, there has been almost complete resolution of interstitial and alveolar opacities bi laterally. This rapid clearing is most characteristic of clearing of fluid. The lungs are clear of confluent alveolar opacities. There is no evidence for pneumothorax. There ar e minimal blunting of the costophrenic angles is again seen characteristic of very small pleural effu sions. There is no acute osseous pathology. IMPRESSION: 1. No pneumothorax status post bronchoscopy. 2. Significant interval clearing of interstitial and alveolar opacities. This rapid change is most ch aracteristic of resolution of fluid. 3. There is again evidence for small bilateral pleural effusions. ACT 112: Negative or not required by law. Electronically signed by: Fer Bauer M.D. 07/31/2021 1:39 PM
[2021-07-31] MEDS: DOXYCYCLINE HYCLATE 100 MG in DEXTROSE 5% 100 ML IV SCH ×2 (14:04→23:00)
[2021-07-31 17:11] LABS: Eosinophil Body Fluid Man 0 %; Fluid Mono/Macrophage 35 %; Lymphocyte Body Fluid Man 37 %; Neutrophil Body Fluid Man 28 %
[2021-07-31 17:12] LABS: Fluid Mono/Macrophage 29 %; Lymphocyte Body Fluid Man 27 %; Neutrophil Body Fluid Man 47 %
[2021-07-31 17:13] LABS: Eosinophil Body Fluid Man 0 %
--- NOTE | 2021-07-31 18:46 | Hospitalist Progress Note ---
Date of Service July 31, 2021 Assessment & Plan (1) Acute respiratory failure with hypoxia: Plan: Summary: Cecilia is a 76-year-old female who presented for management of colitis which did clinically improve, but who had rapidly worsening pulmonary status and oxygen requirements. CAT scan showed bilateral groundglass opacities and significant progression of pulmonary disease compared limited view of lungs on abdominal CT 07/23. Pt rapidly progressed to High Flow oxygen. Covid test x3 have been negative, bio fire was negative, has a negative pro- Martin with increased CRP. She is chronically immunosuppressed as was on 60 mg of prednisone daily for 6 months in addition to methotrexate for RA ID has been consulted 07/29 recommends continuation of Zosyn and doxycycline, Defer MRSA coverage as MRSA nares is negative Consider bronchoscopy if done send specimen for galactomannan pneumocystis Legionella AFB fungal smears and pathology Follow-up on serum Fungitell, Legionella urine antigen, pneumococcal urine antigen, consider histoplasma and blasto my CDs urine antigen and Anaplasma serum PCR. Patient also previously on amiodarone Pulmonary medicine following recommend steroid taper and aggressive diuresis Sputum culture pending, additional bronchoscopic samples 07/31/21 Recommended to start on atovaquone 750 twice daily for PJP prevention pending additional work-up (patient does have a skin urticarial itchy reaction to Bactrim in the past), Lizett held Consider bronchoscopy if no improvement in next 24 to 48 hours, although patient is high risk for decompensation. (2) Acute proctitis: Plan: Acute proctitis/acute lower quadrant abdominal pain, given cipro/flagyl in ER admitted on Ertapenem, now on Zosyn/Doxy Stool PCR, C. difficile negative Patient at risk for mesenteric ischemia with celiac artery stenosis, although no acute occlusion. No acute indication for vascular intervention, vascular will follow as outpatient -Lactate resolved following admission (3) Celiac artery stenosis: Plan: Noted on Dopplers as above, no acute occlusion Outpatient follow-up with vascular, no inpatient intervention recommended at this time (4) Abdominal pain, acute, bilateral lower quadrant: Plan: See above (5) Acute kidney injury superimposed on CKD: Plan: - Creatinine 1.91 upon admission, base 1.13( h/o CKD 3) Patient initially improving, subsequently worsening with respiratory symptoms concerning for pneumonia Creatinine slight uptrend to 1.63 following lasix Boost, patient hypoalbuminemic (6) Paroxysmal atrial fibrillation: Plan: Paroxysmal atrial fibrillation/hypertension- Hold lisinopril, HCTZ. Continue Xarelto Continue Amio (7) Rheumatoid arthritis: Plan: Patient has been on methotrexate and chronic prednisone use for several months Pred held on admission, ?underlying steroid dependence. Resumed w/ stress dose as above MTX held for GI eval/potential infection as above (8) GERD (gastroesophageal reflux disease): Plan: Place on famotidine 20 mg IV every 12 hours (9) Obstructive sleep apnea: Plan: CPAP at bedtime as needed (10) Diabetes mellitus, type 2: Plan: Hold Metformin Glucose checks AC/at bedtime SSI Last A1c well controlled (11) Hypertension: Plan: See above Admission and Anticipated Discharge Date Admission Date: July 23, 2021 Subjective pt was seen after bronchoscopy, was slightly sedate, tolerated the procedure well and did not need to be intubated Review of Systems Review of Systems: Moderate respiratory distress and fatigue no headache, no visual changes no speech or swallowing issues no chest pain, pressure or palpitations Patient has her shortness of breath recovered by the high flow. no abdominal pain, nausea or vomiting, diarrhea or constipation no dysuria, hematuria or frequency no focal joint pain diffuse third space swelling Significant right shoulder pain, no back pain no radicular pain Skin is with persistent bruises from prolonged hospitalization no focal signs of weakness or numbness or altered sensation no complaints of anxiety or depression.. Physical Exam Physical Exam: The patient appeared moderately ill definitely swollen with third space Vital signs as documented. Head exam is normocephalic atraumatic Neck is without JVD, thyromegaly, or carotid bruits. Lungs are coarse bilaterally diminished throughout Cardiac exam, Rhythm is regular.. No murmurs, rubs or gallops. Abdominal exam reveals normal bowel sounds, soft non tender, no masses Extremities are 1-2+ edematous bilaterally upper and lower extremities Skin is with bruises or rashes Psychologically is without concerns for anxiety or depression.. Results & Data Results & Data ([facility]) Vital Signs (Past 12 Hours) Vital Signs Temp Pulse Pulse Resp BP BP Pulse Ox 07/31/21 17:40 97.7 F 07/31/21 17:30 61 18 135/59 L 96 07/31/21 17:15 58 L 19 142/60 H 97 07/31/21 17:00 56 L 21 143/71 H 99 07/31/21 16:45 61 38 H 145/74 H 97 07/31/21 16:30 53 L 22 145/72 H 98 07/31/21 16:15 56 L 17 164/70 H 97 07/31/21 16:00 54 L 17 147/73 H 94 07/31/21 15:45 55 L 14 149/71 H 96 07/31/21 15:30 52 L 18 142/73 H 95 07/31/21 15:15 59 L 54 L 21 144/71 H 95 07/31/21 15:00 97.5 F L 49 L 23 159/65 H 100 07/31/21 14:45 52 L 23 143/63 H 99 07/31/21 14:30 53 L 16 147/65 H 97 07/31/21 14:15 51 L 27 H 126/59 L 96 07/31/21 14:00 50 L 25 H 137/56 L 95 07/31/21 13:45 52 L 26 H 139/58 L 95 07/31/21 13:32 59 L 30 H 130/69 95 07/31/21 13:30 58 L 27 H 127/67 95 07/31/21 13:28 61 31 H 128/65 98 07/31/21 13:26 60 27 H 124/70 100 07/31/21 13:24 62 23 128/70 99 07/31/21 13:23 60 27 H 134/66 98 07/31/21 13:20 64 29 H 112/75 99 07/31/21 13:18 65 16 136/70 99 07/31/21 13:16 63 29 H 158/85 H 99 07/31/21 13:14 66 29 H 132/88 99 07/31/21 13:13 66 21 114/72 99 07/31/21 13:10 60 26 H 151/79 H 99 07/31/21 13:08 61 26 H 157/84 H 99 07/31/21 13:06 63 27 H 160/85 H 99 07/31/21 13:04 67 28 H 163/84 H 98 07/31/21 13:02 72 22 163/90 H 99 07/31/21 13:00 60 23 157/87 H 98 07/31/21 12:58 60 22 174/83 H 98 07/31/21 12:57 61 23 174/87 H 98 07/31/21 12:56 65 26 H 99 07/31/21 12:55 66 24 179/98 H 98 07/31/21 12:54 72 25 H 99 07/31/21 12:53 80 29 H 162/105 H 99 07/31/21 12:52 75 100 07/31/21 12:50 61 23 146/90 H 99 07/31/21 12:48 62 21 158/86 H 100 07/31/21 12:46 64 26 H 144/93 H 100 07/31/21 12:45 61 23 100 07/31/21 12:00 97.5 F L 07/31/21 11:38 63 22 100 07/31/21 11:30 61 25 H 123/86 100 07/31/21 11:00 53 L 25 H 154/79 H 99 07/31/21 10:30 56 L 23 147/83 H 99 07/31/21 10:00 60 23 147/92 H 99 07/31/21 09:43 97.5 F L 07/31/21 09:31 60 16 158/88 H 98 07/31/21 09:30 60 23 97 07/31/21 09:25 59 L 19 131/75 07/31/21 09:00 62 07/31/21 07:20 64 18 94 07/31/21 07:14 97.9 F 64 20 121/64 94 PG Care Time/CCT Total # of Minutes Spent Total Time Spent with Patient: Total time spent is greater than 50% in coordination of care (as documented) at patient's floor/unit and/or counseling patient: Coding Level of Care Code 21208 Subseq Hosp Care Lvl 2 Diagnoses Acute respiratory failure with hypoxia J96.01 Acute proctitis K62.89 Celiac artery stenosis I77.1 Abdominal pain, acute, bilateral lower quadrant R10.31; R10.32 Acute kidney injury superimposed on CKD N17.9; N18.9 Paroxysmal atrial fibrillation I48.0 Rheumatoid arthritis M06.9 GERD (gastroesophageal reflux disease) K21.9 Esophagitis presence: without esophagitis Obstructive sleep apnea G47.33 Diabetes mellitus, type 2 E11.22; N18.31 Diabetes mellitus group home insulin use: without group home use Diabetes mellitus complication status: with kidney complications Diabetes mellitus complication detail: with chronic kidney disease Chronic kidney disease stage: stage 3 (moderate) Chronic kidney disease stage 3 subtype: stage 3a (GFR 45-59) Hypertension I10 Hypertension type: unspecified (1) GERD (gastroesophageal reflux disease) Esophagitis presence: without esophagitis Qualified Code(s): K21.9 - Gastro- esophageal reflux disease without esophagitis (2) Diabetes mellitus, type 2 Diabetes mellitus group home insulin use: without group home use Diabetes mellitus complication status: with kidney complications Diabetes mellitus complication detail: with chronic kidney disease Chronic kidney disease stage: stage 3 (moderate) Chronic kidney disease stage 3 subtype: stage 3a (GFR 45-59) Qualified Code(s): E11.22 - Type 2 diabetes mellitus with diabetic chronic kidney disease; N18.31 - Chronic kidney disease, stage 3a (3) Hypertension Hypertension type: unspecified Qualified Code(s): I10 - Essential (primary) hypertension
[2021-07-31 21:01] LABS: Fungitell (1-3)-B-D-Glucan >500 pg/mL
[2021-08-01] MEDS: PIPERACILLIN/TAZOBACTAM 4.5 GM in DEXTROSE 5% 100 ML IV SCH ×3 (02:00→17:10)
[2021-08-01] MEDS: ACETAMINOPHEN 325 MG TAB PO PRN ×2 (02:25→15:40)
[2021-08-01 06:17] LABS: Hematocrit (blood only) 32.7 % (37-47); Hemoglobin 10.8 g/dL (12.0-16.0); Mean Corpuscular Hemoglobin 30.3 pg (25-34); Mean Corpuscular Volume 91.9 fL (80-100); Mean Platelet Volume 8.9 fL (7.4-10.4); Nucleated RBC # (auto) 0.06 K/uL (0-0); Nucleated RBC % (auto) 0.6 %; Platelet Count 214 K/uL (130-400); RDW Coefficient of Variation 18.3 % (11.5-14.5); Red Blood Count 3.56 M/uL (4.2-5.4)
[2021-08-01 06:26] LABS: BUN Creatinine Ratio 29.2 (10-20); Calcium 8.7 mg/dl (8.5-10.1); Creatinine Clr Calc Pharmacy 37.1 ml/min; Est GFR (African American) 37.6 ml/min; Est GFR (Non-African American) 32.4 ml/min; Magnesium 1.8 mg/dl (1.7-2.4); Phosphorus 4.1 mg/dl (2.5-4.9); Potassium 3.6 mmol/L (3.5-5.1)
[2021-08-01] MEDS ORDERED: POTASSIUM CHLORIDE CRTAB 20 MEQ TABCR PO STA ×2 (06:42→07:39)
[2021-08-01] MEDS: POTASSIUM CHLORIDE / WTR 10 MEQ/100 ML PLCT IV SCH ×2 (06:59→07:03)
[2021-08-01] MEDS: MAGNESIUM SULFATE / D5W 1 GM/100 ML BAG IV SCH ×4 (07:00→08:36)
[2021-08-01 07:15] LABS: ALC (manual) 0.25 K/uL (1.2-3.4); ANC (manual) 7.76 K/uL (1.4-6.5); Lymphocytes # (manual) 0.25 K/uL (1.2-3.4); Lymphocytes % (manual) 2.6 %; Metamyelocytes # (manual) 0.51 K/uL (0-0); Metamyelocytes % (manual) 5.2 %; Monocytes # (manual) 0.42 K/uL (0.11-0.59); Monocytes % (manual) 4.3 %; Myelocytes # (manual) 0.85 K/uL (0-0); Myelocytes % (manual) 8.7 %; Neutrophils # (manual) 7.76 K/uL (1.4-6.5); Neutrophils % (manual) 79.2 %; RBC Morphology Unremarkable
[2021-08-01] MEDS ORDERED: MAGNESIUM SULFATE / D5W 1 GM/100 ML BAG IV ONE (07:39)
--- NOTE | 2021-08-01 07:42 | Pulmonology Progress Note ---
Date of Service August 01, 2021 Assessment & Plan (1) Acute respiratory failure with hypoxia: (2) Rheumatoid arthritis: (3) Abnormal chest CT: Plan: CT chest 07/27/2021 personally reviewed: Diffuse groundglass opacities appreciated bilaterally upper and lower lobes Patchy consolidative changes appreciated bilateral lower lobes Minimal mediastinal lymphadenopathy Pulmonary opacities are new compared to CT abdomen pelvis done 07/23/2021 --Acute hypoxic respiratory failure Multifactorial Patient is +7.2 L since coming to the hospital Patient was on chronic prednisone 60 mg daily May which has been tapering down, she is not any PJP Prophylaxis Patient is also on chronic amiodarone S/p bronchoscopy 07/31/2021. Did not show any alveolar hemorrhage --> Xarelto resumed 08/01/2021 BAL: 37% lymphocytes, 28% neutrophils Follow-up galactomannan Follow-up PJP PCR COVID-19 PCR negative x3 Influenza A/B negative x2 Procalcitonin 0.24 BNP: 72 in a patient with BMI 38 LDH 467 CRP 6.82 Beta-D Glucan ordered. Continue with prednisone to 40 mg twice daily for 5 days followed by 40 mg once a day for 5 days followed by 20 mg for 11 days. Along with Protonix to 40 mg twice daily --DAVY Noncompliant with CPAP Continue with CPAP/BiPAP while in the hospital --Rheumatoid arthritis On methotrexate and chronic prednisone Plan: In/out: -1.5 L, urine output 2150, +2.7 L since coming to the hospital Chest x-ray from today likely seems to be expiratory film. Interstitial marking again appreciated bilaterally Patient has been bradycardic on the monitor. Is not on any medication other than amiodarone which might be causing it. Hold amiodarone Get EKG. Atovaquone which was recently started is usually not associated with bradycardic episodes 2 g magnesium, 20 mg of potassium given to the patient Patient hemodynamically stable to be downgraded back to medical floor Please note the above document was generated using voice recognition software. It may contain grammatical, syntax or spelling errors.Any formal questions or concerns about the content, text or information contained within the body of this dictation should be directly addressed to the provider for clarification. Admission and Anticipated Discharge Date Admission Date: July 23, 2021 Subjective Patient seen and examined at bedside. No acute distress, no dressings overnight Patient used BiPAP whenever she was asleep and at night She says that she did not get good sleep. Breathing is improved Coughing is decreasing amount Denies any chest pain. No hemoptysis. Fair appetite At the time of examination patient was saturating 98% on 8 L nasal cannula. I went down to 5 L. Review of Systems Review of Systems: All systems reviewed & are unremarkable except as noted in Subjective Physical Exam Physical Exam: Constitutional: No acute distress HEENT: EOMI, PERRLA, thick neck Respiratory system: Decreased air entry bilaterally, no wheeze, no rhonchi, positive crackles bilaterally CVS: S1-S2 positive, no murmurs or gallops, bradycardia Abdomen: Soft, nontender, nondistended, positive bowel sounds x4, obese Extremities: +2 pulses bilaterally radialis/ dorsalis pedis, no cyanosis, +1 pitting edema bilateral lower extremity, ecchymosis appreciated bilateral dorsal surfaces of upper extremity Neuro: Awake alert oriented x3 Psych: Normal mood and affect G/U: Positive Campbell Skin: no rashes, warm and dry Lymphatic: no cervical or axillary lymphadenopathy Results & Data Results & Data ([facility]) Vital Signs (Past 12 Hours) Vital Signs Temp Pulse Pulse Resp BP Pulse Ox 08/01/21 06:00 49 L 19 140/61 97 08/01/21 05:00 46 L 18 141/66 H 97 08/01/21 04:00 36.9 C 49 L 19 122/60 94 08/01/21 03:00 52 L 18 144/66 H 95 08/01/21 02:30 56 L 18 96 08/01/21 02:00 55 L 19 145/77 H 97 08/01/21 01:00 57 L 19 136/85 98 08/01/21 00:00 36.8 C 49 L 18 154/74 H 100 07/31/21 23:00 54 L 22 138/78 98 07/31/21 22:30 54 L 22 98 07/31/21 22:00 57 L 23 145/71 H 99 07/31/21 21:00 56 L 22 141/71 H 93 07/31/21 20:44 55 L 18 141/68 H 95 07/31/21 20:00 56 L 18 99 07/31/21 19:55 61 20 94 Laboratory Results 08/01/21 05:46 08/01/21 05:46 PG Care Time/CCT Total # of Minutes Spent Total Time Spent with Patient: Total time spent is greater than 50% in coordination of care (as documented) at patient's floor/unit and/or counseling patient: Coding Level of Care Code 08347 Subseq Hosp Care Lvl 3 Diagnoses Acute respiratory failure with hypoxia J96.01 Rheumatoid arthritis M06.[address] R93.89
--- NOTE | 2021-08-01 08:37 | XRay Report ---
XR chest 1V portable HISTORY: Shortness of breath. Post bronchoscopy. COMPARISON: Chest 07/31/2021. FINDINGS: There are low lung volumes. No pneumothorax. Trace bilateral pleural effusions. The heart r emains enlarged. There is diffuse interstitial/vascular thickening with patchy bibasilar densities. IMPRESSION: 1. Cardiomegaly with mild interstitial pulmonary edema and trace bilateral pleural effusions. 2. Patchy bibasilar densities are nonspecific but could represent atelectasis or pneumonia. ACT 112: Negative or not required by law. Electronically signed by: Jay Arnold M.D. 08/01/2021 8:36 AM
[2021-08-01] MEDS: ATOVAQUONE 750 MG/5 ML UDC PO SCH ×2 (08:38→17:07)
[2021-08-01] MEDS: CETIRIZINE HCL 10 MG TABLET PO SCH (08:39)
[2021-08-01] MEDS: predniSONE 20 MG TAB PO SCH ×2 (08:39→20:00)
[2021-08-01] MEDS: PANTOprazole 40 MG TAB PO SCH ×2 (08:39→20:00)
[2021-08-01] MEDS: CAPSAICIN CR 0.075% 60 GM TUBE EXT SCH ×4 (08:40→20:00)
[2021-08-01] MEDS: INSULIN ASPART PER UNIT SC SCH ×4 (08:51→21:30)
--- NOTE | 2021-08-01 12:35 | Hospitalist Progress Note ---
Date of Service August 01, 2021 Assessment & Plan (1) Acute respiratory failure with hypoxia: Plan: Summary: Cecilia is a 76-year-old female who presented for management of colitis which did clinically improve, but who had rapidly worsening pulmonary status and oxygen requirements. CAT scan showed bilateral groundglass opacities and significant progression of pulmonary disease compared limited view of lungs on abdominal CT 07/23. Pt rapidly progressed to High Flow oxygen. Covid test x3 have been negative, bio fire was negative, has a negative pro- Martin with increased CRP. She is chronically immunosuppressed as was on 60 mg of prednisone daily for 6 months in addition to methotrexate for RA ID has been consulted 07/29 recommends continuation of Zosyn and doxycycline, Defer MRSA coverage as MRSA nares is negative Follow-up on serum Fungitell, Legionella urine antigen, pneumococcal urine antigen, Patient also previously on amiodarone, currently is on hold Pulmonary medicine following Bronchoscopy 08/01/21, no alveolar hemorrhage, resumed Xarelto, pending galactomannan and PJP PCR recommend steroid taper and aggressive diuresis For PCP prevention is on on atovaquone 750 twice daily (patient does have a skin urticarial itchy reaction to Bactrim in the past), (2) Acute proctitis: Plan: initial presenting issue Resoled, Acute proctitis/acute lower quadrant abdominal pain, given cipro/flagyl in ER admitted on Ertapenem, now on Zosyn/Doxy Stool PCR, C. difficile negative Patient at risk for mesenteric ischemia with celiac artery stenosis, although no acute occlusion. No acute indication for vascular intervention, vascular will follow as outpatient -Lactate resolved following admission (3) Celiac artery stenosis: Plan: Noted on Dopplers as above, no acute occlusion Outpatient follow-up with vascular, no inpatient intervention recommended at this time (4) Abdominal pain, acute, bilateral lower quadrant: Plan: See above (5) Acute kidney injury superimposed on CKD: Plan: - Creatinine 1.91 upon admission, base 1.13( h/o CKD 3) Patient initially improving, subsequently worsening with respiratory symptoms concerning for pneumonia remains with diuresis follow renal function Boost, patient hypoalbuminemic (6) Paroxysmal atrial fibrillation: Plan: Paroxysmal atrial fibrillation/hypertension- Hold lisinopril, HCTZ. Continue Xarelto holding amiodarone in care is pulmonary toxicity (7) Rheumatoid arthritis: Plan: Patient has been on methotrexate and chronic prednisone use for several months now on prednisone taper MTX held for GI eval/potential infection as above (8) GERD (gastroesophageal reflux disease): Plan: Place on famotidine 20 mg IV every 12 hours (9) Obstructive sleep apnea: Plan: CPAP at bedtime as needed (10) Diabetes mellitus, type 2: Plan: Hold Metformin Glucose checks AC/at bedtime SSI Last A1c well controlled (11) Hypertension: Plan: See above Admission and Anticipated Discharge Date Admission Date: July 23, 2021 Subjective Patient is doing well after bronchoscopy she is down to wall high flow oxygen she is able to talk in full sentences she still is an abnormal pulmonary exam she is reseeding peripheral edema Review of Systems Review of Systems: Mild respiratory distress and fatigue no headache, no visual changes no speech or swallowing issues no chest pain, pressure or palpitations Patient says she feels less short of breath at this time no abdominal pain, nausea or vomiting, diarrhea or constipation no dysuria, hematuria or frequency no focal joint pain diffuse improving peripheral swelling Significant right shoulder pain, no back pain no radicular pain Skin is with persistent bruises from prolonged hospitalization no focal signs of weakness or numbness or altered sensation no complaints of anxiety or depression.. Physical Exam Physical Exam: The patient appeared improving over the last 2-day course Vital signs as documented. Head exam is normocephalic atraumatic Neck is without JVD, thyromegaly, or carotid bruits. Lungs are coarse bilaterally diminished throughout Cardiac exam, Rhythm is regular.. No murmurs, rubs or gallops. Abdominal exam reveals normal bowel sounds, soft non tender, no masses Extremities are 1-2+ edematous bilaterally upper and lower extremities Skin is with bruises or rashes Psychologically is without concerns for anxiety or depression.. Results & Data Results & Data ([facility]) Vital Signs (Past 12 Hours) Vital Signs Temp Pulse Pulse Resp BP Pulse Ox 08/01/21 11:00 98.2 F 54 L 23 123/67 97 08/01/21 10:00 51 L 24 124/68 97 08/01/21 09:00 54 L 20 142/74 H 99 08/01/21 08:30 52 L 22 97 08/01/21 08:00 46 L 22 132/67 99 08/01/21 07:30 48 L 20 97 08/01/21 07:00 73 16 138/70 98 08/01/21 06:00 49 L 19 140/61 97 08/01/21 05:00 46 L 18 141/66 H 97 08/01/21 04:00 98.4 F 49 L 19 122/60 94 08/01/21 03:00 52 L 18 144/66 H 95 08/01/21 02:30 56 L 18 96 08/01/21 02:00 55 L 19 145/77 H 97 08/01/21 01:00 57 L 19 136/85 98 PG Care Time/CCT Total # of Minutes Spent Total Time Spent with Patient: Total time spent is greater than 50% in coordination of care (as documented) at patient's floor/unit and/or counseling patient: Coding Level of Care Code 08562 Subseq Hosp Care Lvl 3 Diagnoses Acute respiratory failure with hypoxia J96.01 Acute proctitis K62.89 Celiac artery stenosis I77.1 Abdominal pain, acute, bilateral lower quadrant R10.31; R10.32 Acute kidney injury superimposed on CKD N17.9; N18.9 Paroxysmal atrial fibrillation I48.0 Rheumatoid arthritis M06.9 GERD (gastroesophageal reflux disease) K21.9 Esophagitis presence: without esophagitis Obstructive sleep apnea G47.33 Diabetes mellitus, type 2 E11.22; N18.31 Diabetes mellitus intermediate insulin use: without oceanographer geological use Diabetes mellitus complication status: with kidney complications Diabetes mellitus complication detail: with chronic kidney disease Chronic kidney disease stage: stage 3 (moderate) Chronic kidney disease stage 3 subtype: stage 3a (GFR 45-59) Hypertension I10 Hypertension type: unspecified (1) GERD (gastroesophageal reflux disease) Esophagitis presence: without esophagitis Qualified Code(s): K21.9 - Gastro- esophageal reflux disease without esophagitis (2) Diabetes mellitus, type 2 Diabetes mellitus oceanographer geological insulin use: without oceanographer geological use Diabetes mellitus complication status: with kidney complications Diabetes mellitus complication detail: with chronic kidney disease Chronic kidney disease stage: stage 3 (moderate) Chronic kidney disease stage 3 subtype: stage 3a (GFR 45-59) Qualified Code(s): E11.22 - Type 2 diabetes mellitus with diabetic chronic kidney disease; N18.31 - Chronic kidney disease, stage 3a (3) Hypertension Hypertension type: unspecified Qualified Code(s): I10 - Essential (primary) hypertension
[2021-08-01] MEDS ORDERED: CARBOHYDRATES FOR HYPOGLYCEMIA PO PRN (14:05)
[2021-08-01] MEDS ORDERED: DEXTROSE 50% 50 ML SYRINGE IV PRN (14:05)
[2021-08-01] MEDS ORDERED: GLUCOSE 10 TABS/TUBE PO PRN (14:05)
[2021-08-01] MEDS ORDERED: GLUCAGON FOR INJ 1 MG VIAL SQ PRN (14:05)
[2021-08-01] MEDS ORDERED: GLUCOSE 40% GEL 15 GM TUBE PO PRN (14:05)
[2021-08-01] MEDS: DOXYCYCLINE HYCLATE 100 MG in DEXTROSE 5% 100 ML IV SCH ×2 (14:20→22:54)
[2021-08-01] MEDS: RIVAROXABAN 15 MG TAB PO SCH (17:09)
[2021-08-02] MEDS: PIPERACILLIN/TAZOBACTAM 4.5 GM in DEXTROSE 5% 100 ML IV SCH ×3 (01:00→16:56)
[2021-08-02 06:27] LABS: Hematocrit (blood only) 31.9 % (37-47); Hemoglobin 10.5 g/dL (12.0-16.0); Mean Corpuscular Hemoglobin 30.2 pg (25-34); Mean Corpuscular Hgb Conc 32.9 g/dL (32-36); Mean Corpuscular Volume 91.7 fL (80-100); Mean Platelet Volume 8.4 fL (7.4-10.4); Nucleated RBC # (auto) 0.04 K/uL (0-0); Nucleated RBC % (auto) 0.3 %; Platelet Count 196 K/uL (130-400); RDW Coefficient of Variation 18.7 % (11.5-14.5); RDW Standard Deviation 62.1 fL (36.4-46.3); Red Blood Count 3.48 M/uL (4.2-5.4); White Blood Count 12.54 K/uL (4.8-10.8)
[2021-08-02 07:01] LABS: BUN Creatinine Ratio 31.5 (10-20); Calcium 8.5 mg/dl (8.5-10.1); Creatinine Clr Calc Pharmacy 38.6 ml/min; Est GFR (African American) 40.1 ml/min; Est GFR (Non-African American) 34.6 ml/min; Magnesium 2.2 mg/dl (1.7-2.4); Phosphorus 2.7 mg/dl (2.5-4.9); Potassium 3.5 mmol/L (3.5-5.1)
[2021-08-02 07:17] LABS: ANC (manual) 8.51 K/uL (1.4-6.5); Lymphocytes % (manual) 10.4 %; Metamyelocytes # (manual) 1.09 K/uL (0-0); Metamyelocytes % (manual) 8.7 %; Monocytes # (manual) 0.54 K/uL (0.11-0.59); Monocytes % (manual) 4.3 %; Myelocytes # (manual) 1.09 K/uL (0-0); Myelocytes % (manual) 8.7 %; Neutrophils # (manual) 8.51 K/uL (1.4-6.5); Neutrophils % (manual) 67.9 %; Polychromasia 1+
[2021-08-02] MEDS ORDERED: POTASSIUM CHLORIDE CRTAB 20 MEQ TABCR PO STA (07:29)
[2021-08-02] MEDS ORDERED: FUROSEMIDE INJ 20 MG/2 ML VIAL IV ONE (07:29)
--- NOTE | 2021-08-02 07:31 | Pulmonology Progress Note ---
Date of Service August 02, 2021 Assessment & Plan (1) Acute respiratory failure with hypoxia: (2) Rheumatoid arthritis: (3) Abnormal chest CT: Plan: CT chest 07/27/2021 personally reviewed: Diffuse groundglass opacities appreciated bilaterally upper and lower lobes Patchy consolidative changes appreciated bilateral lower lobes Minimal mediastinal lymphadenopathy Pulmonary opacities are new compared to CT abdomen pelvis done 07/23/2021 --Acute hypoxic respiratory failure Multifactorial Patient is +7.2 L since coming to the hospital Patient was on chronic prednisone 60 mg daily May which has been tapering down, she is not any PJP Prophylaxis Patient is also on chronic amiodarone S/p bronchoscopy 07/31/2021. Did not show any alveolar hemorrhage --> Xarelto resumed 08/01/2021 BAL: 37% lymphocytes, 28% neutrophils Follow-up galactomannan Follow-up PJP PCR Transbronchial biopsies shows fungal hyphae. I spoke with Dr. Taylor and she thinks this is most likely Cordelia. Patient will be started on caspofungin Beta-D Glucan positive greater than 500 COVID-19 PCR negative x3 Influenza A/B negative x2 Procalcitonin 0.24 BNP: 72 in a patient with BMI 38 LDH 467 CRP 6.82 Continue with prednisone to 40 mg twice daily for 5 days followed by 40 mg once a day for 5 days followed by 20 mg for 11 days. Along with Protonix to 40 mg twice daily --DAVY Noncompliant with CPAP Continue with CPAP/BiPAP while in the hospital --Rheumatoid arthritis On methotrexate and chronic prednisone Plan: In/out: +578, urine output 776 20 mg of Lasix given to the patient today Given that the transbronchial biopsies are showing only Cordelia I will start the patient on caspofungin today and continue with it for at least 10 days I would recommend to get in touch with ID and give them the finding of beta D glucan being positive as well as Cordelia seen on the transbronchial biopsies. Patient's clinical status has significantly improved while being on atovaquone. I would like to continue with PJP treatment till I have PCR negative from the BAL Discontinue doxycycline. Give 1 more day of Zosyn and then stop 20 mEq of KCl given to the patient Case discussed with Dr Renee Please note the above document was generated using voice recognition software. It may contain grammatical, syntax or spelling errors.Any formal questions or concerns about the content, text or information contained within the body of this dictation should be directly addressed to the provider for clarification. Admission and Anticipated Discharge Date Admission Date: July 23, 2021 Subjective Patient seen and examined at bedside. No acute distress, no events overnight She did use BiPAP overnight but she did not tolerate it well took her off around 1-2 AM Overall she is feeling better. Shortness of breath has improved Cough is decrease in intensity Denies any chest pain No headache, no nausea, no vomiting Good appetite Review of Systems Review of Systems: All systems reviewed & are unremarkable except as noted in Subjective Physical Exam Physical Exam: Constitutional: No acute distress HEENT: EOMI, PERRLA, thick neck Respiratory system: Decreased air entry bilaterally, no wheeze, no rhonchi, positive crackles bilaterally CVS: S1-S2 positive, no murmurs or gallops, bradycardia Abdomen: Soft, nontender, nondistended, positive bowel sounds x4, obese Extremities: +2 pulses bilaterally radialis/ dorsalis pedis, no cyanosis, +1 pitting edema bilateral lower extremity, ecchymosis appreciated bilateral dorsal surfaces of upper extremity Neuro: Awake alert oriented x3 Psych: Normal mood and affect G/U: Positive Campbell Skin: no rashes, warm and dry Lymphatic: no cervical or axillary lymphadenopathy Results & Data Results & Data ([facility]) Vital Signs (Past 12 Hours) Vital Signs Temp Pulse Pulse Resp BP BP Pulse Ox 08/02/21 03:50 36.6 C 53 L 18 126/62 94 08/02/21 00:00 08/01/21 23:41 36.4 C L 55 L 20 128/75 99 08/01/21 22:20 54 L 08/01/21 22:03 54 L 23 98 Pulse Ox 08/02/21 03:50 08/02/21 00:00 92 08/01/21 23:41 08/01/21 22:20 08/01/21 22:03 Laboratory Results 08/02/21 06:12 08/02/21 06:12 PG Care Time/CCT Total # of Minutes Spent Total Time Spent with Patient: Total time spent is greater than 50% in coordination of care (as documented) at patient's floor/unit and/or counseling patient: Coding Level of Care Code 50852 Subseq Hosp Care Lvl 3 Diagnoses Acute respiratory failure with hypoxia J96.01 Rheumatoid arthritis M06.[address] R93.89
--- NOTE | 2021-08-02 07:35 | Hospitalist Progress Note ---
Date of Service August 02, 2021 Assessment & Plan (1) Acute respiratory failure with hypoxia: Plan: 76-year-old female with past medical history of CKD 3, GERD, hyperlipidemia, DAVY, hypertension, DM 2, A. fib, rheumatoid arthritis on chronic adult cetraxate and 60 mg of prednisone daily admitted to the hospital for acute onset abdominal pain nausea and vomiting found to have proctocolitis. During treatment of colitis she developed acute hypoxic respiratory failure that has been her primary reason for continued admission and ongoing work-up. Acute hypoxic respiratory failure Abnormal chest CT showing "Multifocal groundglass consolidation is seen throughout both lungs, greatest at the lung bases. This represents a significant change from 07/23/2021 and could represent multifocal pneumonia and/or pulmonary edema." Has been on doxycycline for atypical pneumonia coverage since 07/27. Concern for fungal or PJP pneumonia is high given patient's immunosuppressed status Pending labs: * Galactomann * Fungal transbronchial wash: yeast with hyphae * Acid Fast bronchial wash: * Fungitell * B-D Glucan: >500 * Respiratory viral culture * anaplasma * PJP PCR Currently being treated for PGP pneumonia with atovaquone given Itching allergy to Bactrim Appreciate ongoing assistance with management by pulmonology Continue IV Lasix 20 mg twice daily Rheumatoid arthritis Currently on prednisone taper: 40 mg daily until August 07, 2019 milligrams daily until August 17. Chronically on methotrexate weekly as well as amiodarone daily which is being continued Proctocolitis Has received a total of 10 days of anaerobic coverage between Zosyn, metronidazole, ertapenem. Will discontinue at the end of today Asymptomatic at this time likely resolved Continue capsaicin CKD stage III Creatinine stable and improving at 1.46 today. GFR 34.6. Continue oral fluid hydration and monitoring I's and O's Chronic problems Type 2 diabetes: Sliding scale insulin as needed with diabetic diet. Holding Metformin at this time GERD: Continue Protonix and Pepcid p.o. twice daily DAVY: Continue CPAP at nighttime Hyperlipidemia, hypertension: Continue statin, amiodarone, HCTZ, lisinopril A. fib: Continuing amiodarone as above, as well as Xarelto 20 daily DVT ppx: Xarelto FEN/GI: Diabetic diet, pantoprazole, famotidine Bowel regimen: N/A Code Status: Full code Dispo: [facility] recommended by physical therapy at discharge will need 2- step if requiring oxygen at that time. (2) Abnormal chest CT: (3) Acute proctitis: (4) CKD (chronic kidney disease), stage III: (5) Rheumatoid arthritis: (6) GERD (gastroesophageal reflux disease): (7) HLD (hyperlipidemia): (8) Obstructive sleep apnea: (9) Diabetes mellitus, type 2: (10) Paroxysmal atrial fibrillation: Admission and Anticipated Discharge Date Admission Date: July 23, 2021 Supervising Physician Co-Signing Physician Notes I also saw the patient confirmed childers portions of the history and physical exam. Discussed the case with the resident physician. Agree with the impression and plan as noted in the resident documentation. Upon exam late morning, she was beginning to eat lunch. She was out of bed to the chair and she noted that she felt much better today. This had been her fi rst time out of the chair since hospitalization. Appetite fair. Denies any nausea vomiting or abdominal pain. Her breathing feels better today. Denies any chest pain. Exam 146/82, 80, 18, 36.5, 94% on nasal cannula 3 L/min Alert and oriented. No distress appreciated. Exam per resident note Data WBC 12.54, hemoglobin 10.5, platelet count 196 BUN 46, creatinine 1.46 Beta D glucan greater than 500 (+) Streptococcus pneumonia antigen pending Urine Legionella antigen pending Pneumocystis (PCR) pending Histoplasma galactomannan antigen pending Transbronchial biopsy shows hyphae. Assessment and plan Acute respiratory failure with hypoxia Appreciate pulmonary consultation Caspofungin added today in light of hyphae in transbronchial washings Will discuss implications of markedly elevated beta D glucan; also note galactomannan antigen & pneumocystis antigen pending Continue atovaquone Discontinue doxycycline Discontinue Zosyn after next dose Acute proctitis Admitting diagnosis which is now resolved Zosyn will be completed following next dose Additional per resident documentation Subjective feeling well this AM. More energetic in the mornings and fatigues by afternoon. less SOB. using incentive spirometer at bedside Review of Systems Review of Systems: All systems reviewed & are unremarkable except as noted in Subjective Physical Exam Physical Exam: Constitutional: obese, in no apparent distress, sitting comfortably in bed. Eyes: EOMI, pupils equal and reactive bilaterally, no scleral icterus Cardiac: RRR, no murmurs, gallops or rubs. Normal S1, S2 Pulm: CTA BL, difficult to auscultate due to habitus, breathing comfortably on 3L NC Abd: soft, nontender, nondistended, normal bowel sounds, no rebound or guarding Extremities: 2+ peripheral pulses, no edema Neuro: no focal deficits, moving all 4 limbs, A&Ox3 : rivera in place draining copious light yellow urine Results & Data Results & Data ([facility]) Vital Signs (Past 12 Hours) Vital Signs Temp Pulse Pulse Resp BP BP Pulse Ox 08/02/21 03:50 36.6 C 53 L 18 126/62 94 08/02/21 00:00 08/01/21 23:41 36.4 C L 55 L 20 128/75 99 08/01/21 22:20 54 L 08/01/21 22:03 54 L 23 98 Pulse Ox 08/02/21 03:50 08/02/21 00:00 92 08/01/21 23:41 08/01/21 22:20 08/01/21 22:03 Resident Activity Tracking Resident Involvement: Resident Care Provided Care Provided: Adult Hospital Medicine (1) Diabetes mellitus, type 2 Chronic kidney disease stage: stage 3 (moderate) Chronic kidney disease stage 3 subtype: stage 3a (GFR 45-59) Diabetes mellitus complication detail: with chronic kidney disease Diabetes mellitus complication status: with kidney complications Diabetes mellitus manager terminal insulin use: without correction use Qualified Code(s): E11.22 - Type 2 diabetes mellitus with diabetic chronic kidney disease; N18.31 - Chronic kidney disease, stage 3a (2) CKD (chronic kidney disease), stage III Chronic kidney disease stage 3 subtype: stage 3a (GFR 45-59) Qualified Code (s): N18.31 - Chronic kidney disease, stage 3a (3) HLD (hyperlipidemia) Hyperlipidemia type: unspecified Qualified Code(s): E78.5 - Hyperlipidemia, unspecified (4) GERD (gastroesophageal reflux disease) Esophagitis presence: without esophagitis Qualified Code(s): K21.9 - Gastro- esophageal reflux disease without esophagitis
[2021-08-02] MEDS ORDERED: CASPOFUNGIN 70 MG in SODIUM CHLORIDE 0.9% 250 ML IV ONE (07:45)
[2021-08-02] MEDS ORDERED: CASPOFUNGIN 50 MG in SODIUM CHLORIDE 0.9% 250 ML IV SCH (08:00)
[2021-08-02] MEDS: AMIODARONE 200 MG TAB PO SCH (08:34)
[2021-08-02] MEDS: PANTOprazole 40 MG TAB PO SCH ×2 (08:34→20:59)
[2021-08-02] MEDS: predniSONE 20 MG TAB PO SCH (08:34)
[2021-08-02] MEDS: CAPSAICIN CR 0.075% 60 GM TUBE EXT SCH ×4 (08:34→20:58)
[2021-08-02] MEDS: CETIRIZINE HCL 10 MG TABLET PO SCH (08:34)
[2021-08-02] MEDS: DICLOFENAC SOD 1% GEL 100 GM TUBE EXT PRN (08:35)
[2021-08-02] MEDS: FAMOTIDINE 20 MG TAB PO SCH (08:35)
[2021-08-02] MEDS: ATOVAQUONE 750 MG/5 ML UDC PO SCH ×2 (08:35→16:57)
[2021-08-02] MEDS: FUROSEMIDE INJ 20 MG/2 ML VIAL IV SCH (08:39)
[2021-08-02] MEDS: INSULIN ASPART PER UNIT SC SCH ×4 (08:42→20:58)
--- NOTE | 2021-08-02 12:13 | Electrocardiogram Report ---
Test Reason : Blood Pressure : / mmHG Vent. Rate : 062 BPM Atrial Rate : 062 BPM P-R Int : 168 ms QRS Dur : 090 ms QT Int : 454 ms P-R-T Axes : 041 -17 011 degrees QTc Int : 460 ms Poor data quality, interpretation may be adversely affected Normal sinus rhythm Moderate voltage criteria for LVH, may be normal variant Borderline ECG When compared with ECG of 24-JUL-2021 21:06, Premature atrial complexes are no longer Present Vent. rate has decreased BY 32 BPM Confirmed by Victor M Conrad ([id number]) on 08/02/2021 12:13:16 PM Referred By: REFERRED SELF Confirmed By:Victor M Conrad
--- NOTE | 2021-08-02 12:18 | Electrocardiogram Report ---
Test Reason : Blood Pressure : / mmHG Vent. Rate : 061 BPM Atrial Rate : 061 BPM P-R Int : 156 ms QRS Dur : 094 ms QT Int : 476 ms P-R-T Axes : 116 -11 030 degrees QTc Int : 479 ms Sinus rhythm with Premature atrial complexes Otherwise normal ECG When compared with ECG of 01-AUG-2021 17:26, (unconfirmed) Premature atrial complexes are now Present Confirmed by Victor M Conrad ([id number]) on 08/02/2021 12:18:13 PM Referred By: REFERRED SELF Confirmed By:Victor M Conrad
[2021-08-02] MEDS: RIVAROXABAN 15 MG TAB PO SCH ×2 (16:57→19:35)
[2021-08-03] MEDS: PIPERACILLIN/TAZOBACTAM 4.5 GM in DEXTROSE 5% 100 ML IV SCH (00:40)
[2021-08-03 07:45] LABS: Hematocrit (blood only) 31.8 % (37-47); Hemoglobin 10.6 g/dL (12.0-16.0); Mean Corpuscular Hemoglobin 30.3 pg (25-34); Mean Corpuscular Hgb Conc 33.3 g/dL (32-36); Mean Corpuscular Volume 90.9 fL (80-100); Mean Platelet Volume 9.1 fL (7.4-10.4); Nucleated RBC # (auto) 0.04 K/uL (0-0); Nucleated RBC % (auto) 0.3 %; Platelet Count 208 K/uL (130-400); RDW Coefficient of Variation 18.5 % (11.5-14.5); RDW Standard Deviation 60.9 fL (36.4-46.3); White Blood Count 15.29 K/uL (4.8-10.8)
[2021-08-03] MEDS ORDERED: CASPOFUNGIN 50 MG in SODIUM CHLORIDE 0.9% 250 ML IV SCH (08:00)
[2021-08-03 08:02] LABS: BUN Creatinine Ratio 35.8 (10-20); Calcium 8.7 mg/dl (8.5-10.1); Creatinine Clr Calc Pharmacy 41.3 ml/min; Est GFR (African American) 43.3 ml/min; Est GFR (Non-African American) 37.4 ml/min; Magnesium 2.1 mg/dl (1.7-2.4); Phosphorus 2.9 mg/dl (2.5-4.9); Potassium 3.2 mmol/L (3.5-5.1)
--- NOTE | 2021-08-03 08:06 | Pulmonology Progress Note ---
Date of Service August 03, 2021 Assessment & Plan (1) Acute respiratory failure with hypoxia: (2) Rheumatoid arthritis: (3) Abnormal chest CT: Plan: CT chest 07/27/2021 personally reviewed: Diffuse groundglass opacities appreciated bilaterally upper and lower lobes Patchy consolidative changes appreciated bilateral lower lobes Minimal mediastinal lymphadenopathy Pulmonary opacities are new compared to CT abdomen pelvis done 07/23/2021 --Acute hypoxic respiratory failure Multifactorial Patient is +7.2 L since coming to the hospital Patient was on chronic prednisone 60 mg daily May which has been tapering down, she is not any PJP Prophylaxis Patient is also on chronic amiodarone S/p bronchoscopy 07/31/2021. Did not show any alveolar hemorrhage --> Xarelto resumed 08/01/2021 BAL: 37% lymphocytes, 28% neutrophils Follow-up galactomannan Follow-up PJP PCR Transbronchial biopsies shows fungal hyphae --> Cordelia albicans. I spoke with Dr. Taylor and she thinks this is most likely Cordelia. Patient's clinical status has improved while on atovaquone and without antifungal coverage. I do not think Cordelia is the culprit for patient's finding and is likely a colonizer Patient did get 1 dose of caspofungin on 08/02/2021 which was discontinued after confirming with ID. Beta-D Glucan positive greater than 500 COVID-19 PCR negative x3 Influenza A/B negative x2 Procalcitonin 0.24 BNP: 72 in a patient with BMI 38 LDH 467 CRP 6.82 Continue with prednisone to 40 mg twice daily for 5 days followed by 40 mg once a day for 5 days followed by 20 mg for 11 days. Along with Protonix to 40 mg twice daily S/p doxycycline and Zosyn during his --DAVY Noncompliant with CPAP Continue with CPAP/BiPAP while in the hospital --Rheumatoid arthritis On methotrexate and chronic prednisone Plan: In/out: -335, urine output 2575 Chest x-ray from today does show improvement in the infiltrates compared to before Patient's clinical status has significantly improved while being on atovaquone. I would like to continue with PJP treatment till I have PCR negative from the BAL Continue with tapering prednisone as well. Please note the above document was generated using voice recognition software. It may contain grammatical, syntax or spelling errors.Any formal questions or concerns about the content, text or information contained within the body of this dictation should be directly addressed to the provider for clarification. Admission and Anticipated Discharge Date Admission Date: July 23, 2021 Subjective Patient seen and examined at bedside. No acute distress, no adverse events overnight Patient was saturating 97% on 3 L nasal cannula at time of examination I went down to 1 L and still able to maintain his saturation 93-94% She says she is feeling better. Shortness of breath is improved. Denies any headache She did use CPAP overnight She slept well yesterday compared with the night prior Review of Systems Review of Systems: All systems reviewed & are unremarkable except as noted in Subjective Physical Exam Physical Exam: Constitutional: No acute distress HEENT: EOMI, PERRLA, thick neck Respiratory system: Decreased air entry bilaterally, no wheeze, no rhonchi, positive crackles bilaterally CVS: S1-S2 positive, no murmurs or gallops, bradycardia Abdomen: Soft, nontender, nondistended, positive bowel sounds x4, obese Extremities: +2 pulses bilaterally radialis/ dorsalis pedis, no cyanosis, +1 pitting edema bilateral lower extremity, ecchymosis appreciated bilateral dorsal surfaces of upper extremity Neuro: Awake alert oriented x3 Psych: Normal mood and affect G/U: Positive Campbell Skin: no rashes, warm and dry Lymphatic: no cervical or axillary lymphadenopathy Results & Data Results & Data ([facility]) Vital Signs (Past 12 Hours) Vital Signs Temp Pulse Pulse Resp BP BP Pulse Ox 08/03/21 07:26 36.6 C 53 L 19 126/72 96 08/03/21 05:43 47 L 08/03/21 03:56 36.6 C 70 16 132/81 93 08/03/21 00:00 08/02/21 23:09 36.5 C 51 L 18 132/81 97 08/02/21 22:14 72 18 98 Pulse Ox 08/03/21 07:26 08/03/21 05:43 08/03/21 03:56 08/03/21 00:00 97 08/02/21 23:09 08/02/21 22:14 Laboratory Results 08/03/21 07:34 08/03/21 07:34 PG Care Time/CCT Total # of Minutes Spent Total Time Spent with Patient: Total time spent is greater than 50% in coordination of care (as documented) at patient's floor/unit and/or counseling patient: Coding Level of Care Code 71052 Subseq Hosp Care Lvl 2 Diagnoses Acute respiratory failure with hypoxia J96.01 Rheumatoid arthritis M06.[address] R93.89
[2021-08-03 08:30] LABS: ALC (manual) 1.73 K/uL (1.2-3.4); ANC (manual) 11.31 K/uL (1.4-6.5); Lymphocytes # (manual) 1.73 K/uL (1.2-3.4); Lymphocytes % (manual) 11.3 %; Metamyelocytes % (manual) 5.2 %; Monocytes % (manual) 5.2 %; Myelocytes # (manual) 0.66 K/uL (0-0); Myelocytes % (manual) 4.3 %; Neutrophils # (manual) 11.31 K/uL (1.4-6.5)
[2021-08-03] MEDS: CAPSAICIN CR 0.075% 60 GM TUBE EXT SCH ×4 (08:35→21:08)
[2021-08-03] MEDS: CETIRIZINE HCL 10 MG TABLET PO SCH (08:35)
[2021-08-03] MEDS: FAMOTIDINE 20 MG TAB PO SCH (08:35)
[2021-08-03] MEDS: PANTOprazole 40 MG TAB PO SCH ×2 (08:35→20:45)
[2021-08-03] MEDS: AMIODARONE 200 MG TAB PO SCH (08:35)
[2021-08-03] MEDS: ATOVAQUONE 750 MG/5 ML UDC PO SCH ×2 (08:36→16:58)
[2021-08-03] MEDS: DICLOFENAC SOD 1% GEL 100 GM TUBE EXT PRN (08:36)
[2021-08-03] MEDS: predniSONE 20 MG TAB PO SCH (08:36)
[2021-08-03] MEDS: INSULIN ASPART PER UNIT SC SCH ×4 (08:39→20:45)
[2021-08-03] MEDS: FUROSEMIDE INJ 20 MG/2 ML VIAL IV SCH (08:39)
--- NOTE | 2021-08-03 08:59 | Hospitalist Progress Note ---
Date of Service August 03, 2021 Assessment & Plan (1) Acute respiratory failure with hypoxia: Plan: 76-year-old female with past medical history of CKD 3, GERD, hyperlipidemia, DAVY, hypertension, DM 2, A. fib, rheumatoid arthritis on chronic methotrexate and 60 mg of prednisone daily admitted to the hospital for acute onset abdominal pain nausea and vomiting found to have proctocolitis. During treatment of colitis she developed acute hypoxic respiratory failure that has been her primary reason for continued admission and ongoing work-up. Acute hypoxic respiratory failure Abnormal chest CT showing "Multifocal groundglass consolidation is seen throughout both lungs, greatest at the lung bases. This represents a significant change from 07/23/2021 and could represent multifocal pneumonia and/or pulmonary edema." doxcycline discontinued - down to 1L NC Concern for fungal or PJP pneumonia is high given patient's immunosuppressed status Pending labs: * Galactomann * Fungal transbronchial wash: yeast with hyphae * Acid Fast bronchial wash: * Fungitell * B-D Glucan: >500 * Respiratory viral culture * anaplasma * PJP PCR Currently being treated for PGP pneumonia with atovaquone given Itching allergy to Bactrim Appreciate ongoing assistance with management by pulmonology Continue IV Lasix 20 mg twice daily Rheumatoid arthritis Currently on prednisone taper: 40 mg daily until August 06, 20 milligrams daily until August 17. Chronically on methotrexate weekly as well as amiodarone daily which is being continued Proctocolitis Has received a total of 10 days of anaerobic coverage between Zosyn, metronidazole, ertapenem. Will discontinue at the end of today Asymptomatic at this time likely resolved Continue capsaicin - C Diff ordered today CKD stage III Creatinine stable and improving at 1.46 today. GFR 34.6. Continue oral fluid hydration and monitoring I's and O's Chronic problems Type 2 diabetes: Sliding scale insulin as needed with diabetic diet. Holding Metformin at this time GERD: Continue Protonix and Pepcid p.o. twice daily DAVY: Continue CPAP at nighttime as tolerated Hyperlipidemia, hypertension: Continue statin, amiodarone, HCTZ, lisinopril A. fib: Continuing amiodarone as above, as well as Xarelto 20 daily DVT ppx: Xarelto FEN/GI: Diabetic diet, pantoprazole, famotidine Bowel regimen: N/A Code Status: Full code Dispo: [facility] recommended by physical therapy at discharge will need 2- step if requiring oxygen at that time. (2) Abnormal chest CT: (3) Acute proctitis: (4) CKD (chronic kidney disease), stage III: (5) Rheumatoid arthritis: (6) GERD (gastroesophageal reflux disease): (7) HLD (hyperlipidemia): (8) Obstructive sleep apnea: (9) Diabetes mellitus, type 2: (10) Paroxysmal atrial fibrillation: Admission and Anticipated Discharge Date Admission Date: July 23, 2021 Supervising Physician Co-Signing Physician Notes I also saw the patient confirmed childers portions of the history and physical exam. Discussed the case with the resident physician. Agree with the impression and plan as noted in the resident documentation. Patient generally feels well today. She does complain of right shoulder pain which is not unusual for her. She was medicated with Tylenol. Otherwise she thinks that her breathing is improved. Denies any chest pain. She does note some loose stools. C. difficile is pending. Hopefully discontinuation of doxycycline and Zosyn will help. Exam 131/74, 58, 20, 36.5, 97% on nasal cannula at 1 L/min Alert and oriented. No distress appreciated. Exam per resident note Data WC 15.29, hemoglobin 10.6, platelet count 208 Sodium 140, potassium 3.2, BUN 49, creatinine 1.37 Beta D glucan greater than 500 (+) Streptococcus pneumonia antigen negative Urine Legionella antigen pending Pneumocystis (PCR) pending Histoplasma galactomannan antigen pending Transbronchial biopsy shows hyphae. Assessment and plan Acute respiratory failure with hypoxia, multifactorial Generally improving Appreciate pulmonary consultation Marked increase in urine output yesterday with Lasix Replete potassium today Continue atovaquone Doxycycline and Zosyn have been discontinued Acute proctitis Admitting diagnosis which is now resolved Zosyn is discontinued Additional per resident documentation Subjective feeling tired this AM. wasn't able to tolerate CPAP for more than 2 hours last night. continues to have frequent bowel movements. states she doesn't know when it's going to be gas vs. stool and gets embarased about going in the bed. not having any abdominal pain except for immediately prior to a BM Review of Systems Review of Systems: All systems reviewed & are unremarkable except as noted in Subjective Physical Exam Physical Exam: Constitutional: obese, in no apparent distress, sitting comfortably in bed. Eyes: EOMI, pupils equal and reactive bilaterally, no scleral icterus Cardiac: RRR, no murmurs, gallops or rubs. Normal S1, S2 Pulm: CTA BL, difficult to auscultate due to habitus, breathing comfortably on 3L NC Abd: soft, nontender, nondistended, normal bowel sounds, no rebound or guarding Extremities: 2+ peripheral pulses, no edema Neuro: no focal deficits, moving all 4 limbs, A&Ox3 : rivera in place draining copious light yellow urine Results & Data Results & Data ([facility]) Vital Signs (Past 12 Hours) Vital Signs Temp Pulse Pulse Resp BP BP Pulse Ox 08/03/21 07:26 36.6 C 53 L 19 126/72 96 08/03/21 05:43 47 L 08/03/21 03:56 36.6 C 70 16 132/81 93 08/03/21 00:00 08/02/21 23:09 36.5 C 51 L 18 132/81 97 08/02/21 22:14 72 18 98 Pulse Ox 08/03/21 07:26 08/03/21 05:43 08/03/21 03:56 08/03/21 00:00 97 08/02/21 23:09 08/02/21 22:14 Resident Activity Tracking Resident Involvement: Resident Care Provided Care Provided: Adult Hospital Medicine (1) Diabetes mellitus, type 2 Chronic kidney disease stage: stage 3 (moderate) Chronic kidney disease stage 3 subtype: stage 3a (GFR 45-59) Diabetes mellitus complication detail: with chronic kidney disease Diabetes mellitus complication status: with kidney complications Diabetes mellitus senior care insulin use: without buttermaker use Qualified Code(s): E11.22 - Type 2 diabetes mellitus with diabetic chronic kidney disease; N18.31 - Chronic kidney disease, stage 3a (2) CKD (chronic kidney disease), stage III Chronic kidney disease stage 3 subtype: stage 3a (GFR 45-59) Qualified Code(s): N18.31 - Chronic kidney disease, stage 3a (3) HLD (hyperlipidemia) Hyperlipidemia type: unspecified Qualified Code(s): E78.5 - Hyperlipidemia, unspecified (4) GERD (gastroesophageal reflux disease) Esophagitis presence: without esophagitis Qualified Code(s): K21.9 - Gastro- esophageal reflux disease without esophagitis
[2021-08-03] MEDS: POTASSIUM CHLORIDE PWD 20 MEQ PACK PO SCH ×2 (09:47→16:58)
--- NOTE | 2021-08-03 10:35 | XRay Report ---
XR chest 1V portable CLINICAL HISTORY: Dyspnea TECHNIQUE: Single frontal radiograph of the chest was obtained. Comparison: Comparison is made to chest one view 08/01/2021 FINDINGS: No lines and tubes are seen. The cardiomediastinal silhouette is normal. Prominence and cephalization of the vasculature is seen. Faint airspace opacity in the left lower lung. No evidence of pleural ef fusion or pneumothorax. IMPRESSION: Mild pulmonary edema. Faint airspace opacity in the left lower lung may represent atelectasis, pneumo conner, or aspiration. ACT 112: Negative or not required by law. Electronically signed by: Srinivasan Sandoval M.D. 08/03/2021 10:33 AM
[2021-08-03] MEDS: ACETAMINOPHEN 325 MG TAB PO PRN ×2 (11:42→22:00)
[2021-08-03] MEDS: RIVAROXABAN 15 MG TAB PO SCH (16:59)
[2021-08-03 17:21] LABS: Pneumocystis jirovecii PCRQual DETECTED; Pneumocystis jirovecii Source BRONCH LAVAGE
--- NOTE | 2021-08-04 06:45 | Hospitalist Progress Note ---
Date of Service August 04, 2021 Assessment & Plan (1) Acute respiratory failure with hypoxia: Plan: 76-year-old female with past medical history of CKD 3, GERD, hyperlipidemia, DAVY, hypertension, DM 2, A. fib, rheumatoid arthritis on chronic methotrexate and 60 mg of prednisone daily admitted to the hospital for acute onset abdominal pain nausea and vomiting found to have proctocolitis. During treatment of colitis she developed acute hypoxic respiratory failure that has been her primary reason for continued admission and ongoing work-up. Acute hypoxic respiratory failure due to PCP Pneumonia Abnormal chest CT showing "Multifocal groundglass consolidation is seen throughout both lungs, greatest at the lung bases. This represents a significant change from 07/23/2021 and could represent multifocal pneumonia and/or pulmonary edema." - Fungintell >500 and PCP PCR positive via BAL on 07/31 - Pulmonology consulted - appreciate recs - continue Atovaquone 750mg PO BID, day 12/28 (pruritus allergy to Bactrim) - may need chronic PCP ppx given chronic steroid use - Continue IV Lasix 20 mg twice daily for now (net +2L currently) Rheumatoid arthritis - Currently on prednisone taper: 40 mg daily until August 06, 20mg daily until August 17 (today is day 12/28) - Chronically on methotrexate weekly which is being continued - f/u with PCP Proctocolitis, resolving - GI and ID consulted - appreciate recs - Received a total of 10 days of anaerobic coverage between Zosyn, metronidazole, ertapenem. Abx discontinued on 08/03 - Still has resolving diarrhea - c-diff negative on 08/03 - Continue capsaicin - outpatient colonoscopy per GI recs - will be scheduled several weeks after discharge CKD stage III - Creatinine stable at 1.4 - Continue oral fluid hydration and monitoring I/Os, especially while on Lasix Chronic problems Type 2 diabetes: Sliding scale insulin as needed with diabetic diet. Holding Metformin at this time GERD: Continue Protonix and Pepcid p.o. twice daily DAVY: Continue CPAP at nighttime as tolerated Hyperlipidemia, hypertension: Continue statin, amiodarone, HCTZ, lisinopril A. fib: Continuing amiodarone as above, as well as Xarelto 20 daily DVT ppx: Xarelto GI ppx: Protonix 40mg PO BID and Pepcid 20mg PO daily (while on steroid taper) FEN/GI: Diabetic diet Code Status: Full code Dispo: PCU/tele. CM kindly assisting with SNF placement (in process) (2) Abnormal chest CT: (3) Acute proctitis: (4) CKD (chronic kidney disease), stage III: (5) Rheumatoid arthritis: (6) GERD (gastroesophageal reflux disease): (7) HLD (hyperlipidemia): (8) Obstructive sleep apnea: (9) Diabetes mellitus, type 2: (10) Paroxysmal atrial fibrillation: Admission and Anticipated Discharge Date Admission Date: July 23, 2021 Supervising Physician Co-Signing Physician Notes I personally examined the patient and verified all childers points of history and exam, discussed case, and agree with decision making with Dr Grant Feeling better overall. Breathing better. Notes that she cannot really tolerate hospital CPAP, but is willing to utilize her as at home once it is working again. Vitals noted, in general she is awake and alert pleasant no distress. HEENT normocephalic atraumatic mucous membranes moist. Breathing unlabored no accessory muscle use good effort. Skin shows no rashes no pallor or icterus. Neuro without focal deficits. P JPimproving. Continue atovaquone. Given cost, I do wonder about potentially long-term looking at desensitization to sulfa if at all possible, particularly given the possibility she might need long-term prophylaxis even after current course of treatment is complete. Hypoxia has improved quite nicely. Sleep apneaCPAP once she is able to tolerate, follow. Weakness/deconditioningfor SNF, rehab emphasis Otherwise as above, anticoagulated Subjective No acute events overnight. Reports that diarrhea is continuing to improve. Denies SOB on current 2L NC settings. Denies fever/chills, chest pain, N/V, abdominal pain, rash. Review of Systems Review of Systems: All systems reviewed & are unremarkable except as noted in HPI & below Physical Exam Physical Exam: General: A&Ox3. NAD. Cooperative. HEENT: Atraumatic, normocephalic. Pulm: CTAB A&P. -wheezes, -rales, -rhonchi. Symmetrical chest rise. No increase work of breathing. No respiratory distress. Cardiac: RRR, -mrg. Radial pulses intact and symmetrical. Abdominal: soft, non-tender, non-distended, BS x 4 Results & Data Results & Data ([facility]) Vital Signs (Past 12 Hours) Vital Signs Temp Pulse Pulse Resp BP BP Pulse Ox 08/04/21 05:55 60 08/04/21 02:55 36.5 C 65 18 132/83 97 08/04/21 00:00 08/03/21 23:33 36.7 C 62 18 144/75 H 98 08/03/21 21:00 69 37 H 93 08/03/21 19:07 36.8 C 65 19 135/72 91 Pulse Ox 08/04/21 05:55 08/04/21 02:55 08/04/21 00:00 98 08/03/21 23:33 08/03/21 21:00 08/03/21 19:07 Resident Activity Tracking Resident Involvement: Resident Care Provided Care Provided: Adult Hospital Medicine (1) Diabetes mellitus, type 2 Chronic kidney disease stage: stage 3 (moderate) Chronic kidney disease stage 3 subtype: stage 3a (GFR 45-59) Diabetes mellitus complication detail: with chronic kidney disease Diabetes mellitus complication status: with kidney complications Diabetes mellitus bed bug exterminator insulin use: without penitentiary use Qualified Code(s): E11.22 - Type 2 diabetes mellitus with diabetic chronic kidney disease; N18.31 - Chronic kidney disease, stage 3a (2) CKD (chronic kidney disease), stage III Chronic kidney disease stage 3 subtype: stage 3a (GFR 45-59) Qualified Code(s): N18.31 - Chronic kidney disease, stage 3a (3) HLD (hyperlipidemia) Hyperlipidemia type: unspecified Qualified Code(s): E78.5 - Hyperlipidemia, unspecified (4) GERD (gastroesophageal reflux disease) Esophagitis presence: without esophagitis Qualified Code(s): K21.9 - Gastro- esophageal reflux disease without esophagitis
[2021-08-04 07:02] LABS: Hemoglobin 11.2 g/dL (12.0-16.0); Mean Corpuscular Hemoglobin 31.1 pg (25-34); Mean Corpuscular Volume 91.7 fL (80-100); Mean Platelet Volume 8.7 fL (7.4-10.4); Nucleated RBC # (auto) 0.06 K/uL (0-0); Nucleated RBC % (auto) 0.4 %; Platelet Count 224 K/uL (130-400); RDW Coefficient of Variation 18.7 % (11.5-14.5); RDW Standard Deviation 62.2 fL (36.4-46.3); White Blood Count 14.72 K/uL (4.8-10.8)
[2021-08-04 07:20] LABS: BUN Creatinine Ratio 34.3 (10-20); Calcium 8.8 mg/dl (8.5-10.1); Creatinine Clr Calc Pharmacy 40.1 ml/min; Est GFR (African American) 42.2 ml/min; Est GFR (Non-African American) 36.4 ml/min; Magnesium 2.2 mg/dl (1.7-2.4); Potassium 3.2 mmol/L (3.5-5.1)
[2021-08-04] MEDS ORDERED: POTASSIUM CHLORIDE CRTAB 20 MEQ TABCR PO STA (07:31)
[2021-08-04 07:38] LABS: Mean Corpuscular Hgb Conc 33.9 g/dL (32-36)
[2021-08-04 07:44] LABS: ANC (manual) 11.22 K/uL (1.4-6.5); Lymphocytes % (manual) 10.2 %; Metamyelocytes % (manual) 6.8 %; Monocytes % (manual) 3.4 %; Myelocytes % (manual) 3.4 %; Neutrophils # (manual) 11.22 K/uL (1.4-6.5); Neutrophils % (manual) 76.2 %
[2021-08-04] MEDS: FAMOTIDINE 20 MG TAB PO SCH (08:19)
[2021-08-04] MEDS: CETIRIZINE HCL 10 MG TABLET PO SCH (08:19)
[2021-08-04] MEDS: PANTOprazole 40 MG TAB PO SCH ×2 (08:19→21:33)
[2021-08-04] MEDS: predniSONE 20 MG TAB PO SCH (08:19)
[2021-08-04] MEDS: AMIODARONE 200 MG TAB PO SCH (08:19)
[2021-08-04] MEDS: POTASSIUM CHLORIDE PWD 20 MEQ PACK PO SCH ×2 (08:20→17:28)
[2021-08-04] MEDS: CAPSAICIN CR 0.075% 60 GM TUBE EXT SCH ×4 (08:20→21:32)
[2021-08-04] MEDS: INSULIN ASPART PER UNIT SC SCH ×4 (08:20→21:32)
[2021-08-04] MEDS: ATOVAQUONE 750 MG/5 ML UDC PO SCH ×2 (08:20→17:28)
[2021-08-04] MEDS: FUROSEMIDE INJ 20 MG/2 ML VIAL IV SCH (08:20)
[2021-08-04] MEDS: ACETAMINOPHEN 325 MG TAB PO PRN ×2 (08:29→21:33)
--- NOTE | 2021-08-04 13:35 | Pulmonology Progress Note ---
Date of Service August 04, 2021 Assessment & Plan (1) Acute respiratory failure with hypoxia: (2) Rheumatoid arthritis: (3) Abnormal chest CT: (4) Pneumocystis jiroveci pneumonia: Plan: Impression: 76-year-old female with rheumatoid arthritis on chronic prednisone therapy admitted with hypoxemic respiratory failure and diffuse pulmonary infiltrates. Bronch PJP PCR positive. The patient was already on atovaquone and prednisone taper. She is clinically improved. Recommendations: 1. PJP pneumonia in the setting of significant immune suppression. Improved on atovaquone. She is day number 12/28 atovoquone therapy. Steroid taper prednisone 40 mg twice daily for 5 days followed by 40 mg once a day for 5 days followed by 20 mg for 11 days, day # 8. We will need to coordinate with rheumatology. If the patient remains on prednisone, it is likely that she will need a long-term form of PJP prophylaxis. Additional recommendations per ID. Would coordinate with pharmacy at discharge as this medication may be quite expensive to continue in the outpatient setting. 2. Hypoxemic respiratory failure: Continue to wean as tolerated. Patient may require supplemental oxygen at discharge. 3. No indication for additional antimicrobial agents from a pulmonary perspective. 4. Continue diuresis recommended. She remains net +2 L and would continue to diurese until BUN and creatinine bump. 5. May need to discuss with endocrine prednisone taper given her longstanding use. Typically patients risk of pneumocystis pneumonia decreases exponentially once daily prednisone dose to goes below 20 mg a day. 6. Would recommend discontinuation of the patient's Campbell catheter as this represents a potential nidus of infection. Patient appears to be doing clinically well at this point time. She is likely approaching discharge from a pulmonary perspective. Ultimate disposition is deferred to the hospitalist. We will sign off at this point time. Feel free to contact us with additional questions or concerns Please note the above document was generated using voice recognition software. It may contain grammatical, syntax or spelling errors.Any formal questions or concerns about the content, text or information contained within the body of this dictation should be directly addressed to the provider for clarification. Admission and Anticipated Discharge Date Admission Date: July 23, 2021 Subjective Patient seen and examined. EMR reviewed. Images were independently reviewed. Discussed with off going music sound light technician. Patient continues to exhibit slow and steady improvement with regards to her breathing. She is down to 2 L of oxygen. She is up to unable to use the bedside commode. Review of Systems Review of Systems: All systems reviewed & are unremarkable except as noted in Subjective Physical Exam Constitutional: WD/WN, vitals as above Neck: trachea midline, no thyromegaly Respiratory: normal respiratory effort, lungs clear to auscultation Cardiovascular: RRR, no murmur, no edema Gastrointestinal (Abdomen): normal bowel sounds, soft, nontender, no hepatosplenomegaly Musculoskeletal: Extremities: extremities normal to inspection Skin: no rashes, warm and dry Neurologic: Nonfocal exam Lymphatic: no cervical lymphadenopathy Results & Data Results & Data ([facility]) Vital Signs (Past 12 Hours) Vital Signs Temp Pulse Pulse Resp BP Pulse Ox 08/04/21 12:00 36.6 C 74 20 124/67 93 08/04/21 08:00 36.6 C 62 18 121/60 95 08/04/21 06:16 59 L 08/04/21 05:55 60 08/04/21 02:55 36.5 C 65 18 132/83 97 Laboratory Results 08/04/21 06:44 08/04/21 06:47 Diagnostic Findings No new films. Prior imaging was independently reviewed PG Care Time/CCT Total # of Minutes Spent Total Time Spent with Patient: Total time spent is greater than 50% in coordination of care (as documented) at patient's floor/unit and/or counseling patient: Coding Level of Care Code 55362 Subseq Hosp Care Lvl 3 Diagnoses Acute respiratory failure with hypoxia J96.01 Rheumatoid arthritis M06.[address] R93.89 Pneumocystis jiroveci pneumonia B59
--- NOTE | 2021-08-04 17:24 | Billing Data ---
Date of Service August 04, 2021 Coding Level of Care Code 72944 Subseq Hosp Care Lvl 2
[2021-08-04] MEDS: RIVAROXABAN 15 MG TAB PO SCH (17:28)
[2021-08-05] MEDS: DICLOFENAC SOD 1% GEL 100 GM TUBE EXT PRN (00:06)
[2021-08-05] MEDS: ACETAMINOPHEN 325 MG TAB PO PRN ×2 (01:26→08:18)
[2021-08-05] MEDS: FAMOTIDINE 20 MG TAB PO SCH (08:11)
[2021-08-05] MEDS: PANTOprazole 40 MG TAB PO SCH (08:11)
[2021-08-05] MEDS: POTASSIUM CHLORIDE PWD 20 MEQ PACK PO SCH ×2 (08:11→16:38)
[2021-08-05] MEDS: ATOVAQUONE 750 MG/5 ML UDC PO SCH ×2 (08:11→16:38)
[2021-08-05] MEDS: AMIODARONE 200 MG TAB PO SCH (08:12)
[2021-08-05] MEDS: CETIRIZINE HCL 10 MG TABLET PO SCH (08:12)
[2021-08-05] MEDS: predniSONE 20 MG TAB PO SCH (08:12)
[2021-08-05] MEDS: NYSTATIN OINT 15 GM TUBE EXT SCH ×3 (08:13→16:38)
[2021-08-05] MEDS: CAPSAICIN CR 0.075% 60 GM TUBE EXT SCH ×3 (08:13→16:38)
[2021-08-05] MEDS: FUROSEMIDE INJ 20 MG/2 ML VIAL IV SCH (08:19)
[2021-08-05] MEDS: INSULIN ASPART PER UNIT SC SCH ×2 (08:38→12:43)
[2021-08-05 08:45] LABS: Hematocrit (blood only) 34.7 % (37-47); Hemoglobin 11.7 g/dL (12.0-16.0); Mean Corpuscular Hgb Conc 33.7 g/dL (32-36); Mean Corpuscular Volume 91.8 fL (80-100); Mean Platelet Volume 9.3 fL (7.4-10.4); Nucleated RBC # (auto) 0.06 K/uL (0-0); Nucleated RBC % (auto) 0.4 %; Platelet Count 235 K/uL (130-400); RDW Coefficient of Variation 19.1 % (11.5-14.5); RDW Standard Deviation 63.6 fL (36.4-46.3); Red Blood Count 3.78 M/uL (4.2-5.4); White Blood Count 15.95 K/uL (4.8-10.8)
--- NOTE | 2021-08-05 09:11 | Hospitalist Progress Note ---
Date of Service August 05, 2021 Assessment & Plan (1) Acute respiratory failure with hypoxia: Plan: 76-year-old female with past medical history of CKD 3, GERD, hyperlipidemia, DAVY, hypertension, DM 2, A. fib, rheumatoid arthritis on chronic methotrexate and 60 mg of prednisone daily admitted to the hospital for acute onset abdominal pain nausea and vomiting found to have proctocolitis. During treatment of colitis she developed acute hypoxic respiratory failure that has been her primary reason for continued admission and ongoing work-up. Acute hypoxic respiratory failure due to PCP Pneumonia Abnormal chest CT showing "Multifocal groundglass consolidation is seen throughout both lungs, greatest at the lung bases. This represents a significant change from 07/23/2021 and could represent multifocal pneumonia and/or pulmonary edema." - Fungintell >500 and PCP PCR positive via BAL on 07/31 - Pulmonology consulted - appreciate recs - continue Atovaquone 750mg PO BID, day 01/28 (pruritus allergy to Bactrim) - will need chronic PCP ppx given chronic steroid use - plan for Atovaquone 1.5g PO daily, once above treatment regimen is complete - Continue IV Lasix 20 mg twice daily for now (net +1L currently) Rheumatoid arthritis - Currently on prednisone taper: 40 mg daily until August 06, 20mg daily until August 17 (today is day 01/28) - Chronically on methotrexate weekly which is being continued - f/u with PCP Proctocolitis, resolving - GI and ID consulted - appreciate recs - Received a total of 10 days of anaerobic coverage between Zosyn, metronidazole, ertapenem. Abx discontinued on 08/03 - Still has resolving diarrhea - c-diff negative on 08/03 - Continue capsaicin - outpatient colonoscopy per GI recs - will be scheduled several weeks after discharge CKD stage III - Creatinine stable at 1.4 - Continue oral fluid hydration and monitoring I/Os, especially while on Lasix Chronic problems Type 2 diabetes: Sliding scale insulin as needed with diabetic diet. Holding Metformin at this time GERD: Continue Protonix and Pepcid p.o. twice daily DAVY: Continue CPAP at nighttime as tolerated Hyperlipidemia, hypertension: Continue statin, amiodarone, HCTZ, lisinopril A. fib: Continuing amiodarone as above, as well as Xarelto 20 daily DVT ppx: Xarelto GI ppx: Protonix 40mg PO BID and Pepcid 20mg PO daily (while on steroid taper) FEN/GI: Diabetic diet Code Status: Full code Dispo: PCU/tele. CM kindly assisting with SNF placement (accepted to [facility] but wants to go to [facility] - in process) (2) Abnormal chest CT: (3) Acute proctitis: (4) CKD (chronic kidney disease), stage III: (5) Rheumatoid arthritis: (6) GERD (gastroesophageal reflux disease): (7) HLD (hyperlipidemia): (8) Obstructive sleep apnea: (9) Diabetes mellitus, type 2: (10) Paroxysmal atrial fibrillation: Admission and Anticipated Discharge Date Admission Date: July 23, 2021 Subjective No acute events overnight. Did not need supplemental O2 overnight - first time. This morning patient reports feeling well overall - no SOB or cough. Review of Systems Review of Systems: All systems reviewed & are unremarkable except as noted in HPI & below Physical Exam Physical Exam: General: A&Ox3. NAD. Cooperative. HEENT: Atraumatic, normocephalic. Pulm: Mildly diminished lung sounds bilaterally. -wheezes, -rales, -rhonchi. Symmetrical chest rise. No increase work of breathing. No respiratory distress. Cardiac: RRR, -mrg. Radial pulses intact and symmetrical. Abdominal: soft, non-tender, non-distended, BS x 4 Skin: warm, dry, no rash Results & Data Results & Data ([facility]) Vital Signs (Past 12 Hours) Vital Signs Temp Pulse Pulse Resp BP Pulse Ox 08/05/21 07:28 36.5 C 72 16 137/83 95 08/04/21 23:00 36.4 C L 63 18 153/83 H 93 (1) CKD (chronic kidney disease), stage III Chronic kidney disease stage 3 subtype: stage 3a (GFR 45-59) Qualified Code(s): N18.31 - Chronic kidney disease, stage 3a (2) GERD (gastroesophageal reflux disease) Esophagitis presence: without esophagitis Qualified Code(s): K21.9 - Gastro- esophageal reflux disease without esophagitis (3) HLD (hyperlipidemia) Hyperlipidemia type: unspecified Qualified Code(s): E78.5 - Hyperlipidemia, unspecified (4) Diabetes mellitus, type 2 Diabetes mellitus snf insulin use: without long chain quiller tender use Diabetes mellitus complication status: with kidney complications Diabetes mellitus complication detail: with chronic kidney disease Chronic kidney disease stage: stage 3 (moderate) Chronic kidney disease stage 3 subtype: stage 3a (GFR 45-59) Qualified Code(s): E11.22 - Type 2 diabetes mellitus with diabetic chronic kidney disease; N18.31 - Chronic kidney disease, stage 3a
[2021-08-05 09:26] LABS: Anion Gap 8 (3-11); BUN Creatinine Ratio 30.8 (10-20); Blood Urea Nitrogen 48 mg/dl (6-23); Carbon Dioxide 26 mmol/L (21-32); Chloride 106 mmol/L (98-107); Creatinine Clr Calc Pharmacy 33.4 ml/min; Est GFR (Non-African American) 31.9 ml/min; Glucose 77 mg/dl (70-99(Fasting)); Magnesium 2.2 mg/dl (1.7-2.4); Phosphorus 2.2 mg/dl (2.5-4.9); Sodium 140 mmol/L (136-145)
[2021-08-05 09:40] LABS: ALC (manual) 0.57 K/uL (1.2-3.4); ANC (manual) 13.22 K/uL (1.4-6.5); Basophils # (manual) 0.14 K/uL (0-0.2); Basophils % (manual) 0.9 %; Lymphocytes # (manual) 0.57 K/uL (1.2-3.4); Lymphocytes % (manual) 3.6 %; Metamyelocytes % (manual) 6.3 %; Monocytes # (manual) 0.43 K/uL (0.11-0.59); Monocytes % (manual) 2.7 %; Myelocytes # (manual) 0.57 K/uL (0-0); Myelocytes % (manual) 3.6 %; Neutrophils # (manual) 13.22 K/uL (1.4-6.5); Neutrophils % (manual) 82.9 %
[2021-08-05] MEDS ORDERED: POTASSIUM PHOS 3 MMOL/1 ML INFUSION IV STA (09:45)
[2021-08-05] MEDS ORDERED: POTASSIUM PHOSPHATE 15 MMOL in SODIUM CHLORIDE 0.9% 250 ML IV ONE (10:30)
--- NOTE | 2021-08-05 11:36 | Discharge Summary ---
Date of Service August 05, 2021 Admission HPI Per Admitting Provider The patient is a 76-year-old female with a past medical history including rheumatoid arthritis, chronic prednisone use, CKD stage III, GERD, hyperlipidemia, history of lumbar laminectomy, DAVY, hypertension, diabetes leo litus, paroxysmal atrial fibrillation on Xarelto. Her daughter reports that she has had episodes of loose stools followed by episodes of no stool passage over the past few weeks. Her pain has intensified significantly over the past 24 hours, which prompted her visit to the emergency department. Admission Exam Per Admitting Provider The patient is awake, alert and oriented 3, well developed and well nourished, normocephalic and atraumatic, lying in bed and in mild to moderate acute distress due to episodic abdominal pain HEENT--PERRL, EOMI, mucous membranes and oropharynx dry. Neck--supple. No JVD. No bruits. Thyroid normal, trachea midline, no adenopathy. Heart--normal S1 and S2. No murmurs, rubs or gallops. Lungs--clear bilaterally, no respiratory distress, no accessory muscle use. Abdomen--hyperactive bowel sounds. Mildly distended and tympanitic. Extremities--no cyanosis or clubbing. Bilateral pretibial 1+ pitting edema. Area of weeping right lower anterior tibial surface Dermatologic--lower extremities as noted above Neurologic--cranial nerves II through XII grossly intact. Rheumatologic--normal range of motion. Psychiatric--normal affect. Principal Diagnosis PJP Pneumonia Proctocolitis Discharge Exam General: A&Ox3. NAD. Cooperative. HEENT: Atraumatic, normocephalic. Pulm: Mildly diminished lung sounds bilaterally. -wheezes, -rales, -rhonchi. Symmetrical chest rise. No increase work of breathing. No respiratory distress. Cardiac: RRR, -mrg. Radial pulses intact and symmetrical. Abdominal: soft, non-tender, non-distended, BS x 4 Skin: warm, dry, no rash Discharge Data Allergies Allergy/AdvReac Type Severity Reaction Status Date / Time Iodinated Contrast Media Allergy Intermediate Foot rash, Verified 07/23/21 15:09 swelling Sulfa (Sulfonamide Allergy Mild Rash, Verified 07/23/21 15:09 Antibiotics) itching sulfamethoxazole Allergy Mild Rash, Verified 07/23/21 15:09 itching Consultations 07/23/21 19:02 ED Decision to Admit Stat 07/24/21 10:05 Consult Gastroenterology Routine 07/25/21 09:00 Consult Vascular Surgery Routine 07/28/21 07:59 Consult Infectious Diseases Routine 07/28/21 08:01 Consult Pulmonology Routine Ordered Studies 07/23/21 15:39 CT abd pelvis wo con Stat 07/23/21 20:01 US duplex mesenteric Stat 07/27/21 08:11 CT chest diagnostic wo con Routine Hospital Course (1) Acute respiratory failure with hypoxia: 76-year-old female with past medical history of CKD 3, GERD, hyperlipidemia, DAVY, hypertension, DM 2, A. fib, rheumatoid arthritis on chronic methotrexate and 60 mg of prednisone daily admitted to the hospital for acute onset abdominal pain nausea and vomiting found to have proctocolitis. During treatment of colitis she developed acute hypoxic respiratory failure due to PJP Pneumonia - she required short ICU stay but respiratory failure resolved after ~1 week with Atovaquone. Acute hypoxic respiratory failure due to PJP Pneumonia, Respiratory Failure resolved Abnormal chest CT showing "Multifocal groundglass consolidation is seen throughout both lungs, greatest at the lung bases. This represents a significant change from 07/23/2021 and could represent multifocal pneumonia and/or pulmonary edema." - Fungintell >500 and PJP PCR positive via BAL on 07/31 - Pulmonology consulted - appreciate recs - improved significantly on Atovaquone (pruritus allergy to Bactrim) - respiratory failure completely resolved - continue Atovaquone 750mg PO BID x total of 3 weeks after discharge (today is day 01/28) - for now will hold on chronic PJP prophylaxis, as steroids will be completely weaned off regimen after several weeks - respiratory status also significantly improved with Lasix 20mg IV daily x1 week - stopped on discharge (~even net fluid status throughout hospitalization) Rheumatoid arthritis - Currently on 3-week prednisone taper: 40 mg daily until August 06, 20mg daily until August 17 (today is day 01/28) - Chronically on methotrexate weekly which is being continued - f/u with PCP to discuss possibility of re-starting chronic steroids at a later time Proctocolitis, resolving - GI and ID consulted - appreciate recs - Received a total of 10 days of anaerobic coverage between Zosyn, metronidazole, ertapenem. Abx discontinued on 08/03 - Still has resolving diarrhea - c-diff negative on 08/03 - Continue capsaicin - outpatient colonoscopy per GI recs - will be scheduled several weeks after discharge - f/u with GI to help arrange colonoscopy CKD stage III - Creatinine stable throughout hospitalization, including during the week patient received daily Lasix - Avoid nephrotoxins Chronic problems Type 2 diabetes: Sliding scale insulin as needed with diabetic diet while hospitalized (Metformin was held) GERD: Continue Protonix and Pepcid p.o. twice daily, while on steroids DAVY: Continue CPAP at nighttime as tolerated Hyperlipidemia, hypertension: Continue statin, amiodarone, HCTZ, lisinopril A. fib: Continuing amiodarone as above, as well as Xarelto 20 daily DVT ppx: Xarelto GI ppx: Protonix 40mg PO BID and Pepcid 20mg PO daily (while on steroid taper) FEN/GI: Diabetic diet Code Status: Full code (2) Abnormal chest CT: (3) Acute proctitis: (4) CKD (chronic kidney disease), stage III: (5) Rheumatoid arthritis: (6) GERD (gastroesophageal reflux disease): (7) HLD (hyperlipidemia): (8) Obstructive sleep apnea: (9) Diabetes mellitus, type 2: (10) Paroxysmal atrial fibrillation: Total Time Total Time Spent Total Time Spent (In Minutes): 30 minutes Discharge Plan Discharge Items Patient Disposition: Transfer Inpatient Rehab Fac Reason For Visit: PROCTOCOLITIS, ATRIAL FIB Discharge Diagnosis: PJP Pneumonia Proctocolitis Activity: Per Instructions section Non-emergency contact: Primary Care Provider, Environmental Marketing Representative and Yard Assistant Call non-emergency contact if: you have any medication questions, your symptoms worsen and you have a fever Follow-up/Referrals: Dennis Alvarez MD [Primary Care Provider] - (please schedule f/u in 1-2 weeks) Juan A Rodriguez MD [Hospitalist] - (please schedule f/u in 2-4 weeks) Diet: Carb Consistent or DM2, Heart Healthy and Low Sodium (2gm) Diet Texture: Easy to Chew Addtl Attending Provider Instructions: 76-year-old female with past medical history of CKD 3, GERD, hyperlipidemia, DAVY, hypertension, DM 2, A. fib, rheumatoid arthritis on chronic methotrexate and 60 mg of prednisone daily admitted to the hospital for acute onset abdominal pain nausea and vomiting found to have proctocolitis. During treatment of colitis she developed acute hypoxic respiratory failure due to PJP Pneumonia - she required short ICU stay but respiratory failure resolved after ~1 week with Atovaquone. Acute hypoxic respiratory failure due to PJP Pneumonia, Respiratory Failure resolved Abnormal chest CT showing "Multifocal groundglass consolidation is seen throughout both lungs, greatest at the lung bases. This represents a significant change from 07/23/2021 and could represent multifocal pneumonia and/or pulmonary edema." - Fungintell >500 and PJP PCR positive via BAL on 07/31 - Pulmonology consulted - appreciate recs - improved significantly on Atovaquone (pruritus allergy to Bactrim) - respiratory failure completely resolved - continue Atovaquone 750mg PO BID x total of 3 weeks after discharge (today is day 01/28) - for now will hold on chronic PJP prophylaxis, as steroids will be completely weaned off regimen after several weeks - respiratory status also significantly improved with Lasix 20mg IV daily x1 week - stopped on discharge (~even net fluid status throughout hospitalization) Rheumatoid arthritis - Currently on 3-week prednisone taper: 40 mg daily until August 06, 20mg daily until August 17 (today is day 01/28) - Chronically on methotrexate weekly which is being continued - f/u with PCP to discuss possibility of re-starting chronic steroids at a later time Proctocolitis, resolving - GI and ID consulted - appreciate recs - Received a total of 10 days of anaerobic coverage between Zosyn, metronidazole, ertapenem. Abx discontinued on 08/03 - Still has resolving diarrhea - c-diff negative on 08/03 - Continue capsaicin - outpatient colonoscopy per GI recs - will be scheduled several weeks after discharge - f/u with GI to help arrange colonoscopy CKD stage III - Creatinine stable throughout hospitalization, including during the week patient received daily Lasix - Avoid nephrotoxins Chronic problems Type 2 diabetes: Sliding scale insulin as needed with diabetic diet while hospitalized (Metformin was held) GERD: Continue Protonix and Pepcid p.o. twice daily, while on steroids DAVY: Continue CPAP at nighttime as tolerated Hyperlipidemia, hypertension: Continue statin, amiodarone, HCTZ, lisinopril A. fib: Continuing amiodarone as above, as well as Xarelto 20 daily DVT ppx: Xarelto GI ppx: Protonix 40mg PO BID and Pepcid 20mg PO daily (while on steroid taper) FEN/GI: Diabetic diet Code Status: Full code Pending Studies at Discharge: No Stand-Alone Forms: My [facility] Skilled Items Patient informed of condition?: Yes DNR: No Discharge Level of Care: Skilled Communicable Disease: No Discharge Prognosis: Improving Lines: None Urinary Catheter: No Medications and DC Order Prescriptions: New prednisone 20 mg tablet 20 mg PO DAILY 11 Days Qty: 11 RF: 0 atovaquone 750 mg/5 mL suspension 750 mg PO BID 11 Days Qty: 110 RF: 0 Continued Xarelto 20 mg tablet 20 mg PO DAILY Qty: 90 RF: 3 hydrochlorothiazide 25 mg tablet 25 mg PO DAILY Qty: 90 RF: 3 folic acid 1 mg tablet 1 mg PO DAILY Qty: 90 RF: 3 lisinopril 10 mg tablet 10 mg PO DAILY Qty: 90 RF: 3 amiodarone 200 mg tablet 200 mg PO DAILY Qty: 90 RF: 3 acetaminophen 500 mg tablet 500 - 1,000 mg PO Q6H PRN (Reason: Pain) RF: 0 zinc gluconate 50 mg tablet 50 mg PO DAILY RF: 0 calcium carbonate-vitamin D3 [Calcium 600 + D(3)] 600 mg(1,500mg) -400 unit Tablet 1 tab PO QAM RF: 0 potassium gluconate 595 mg (99 mg) Tablet 99 mg PO QAM RF: 0 cholecalciferol (vitamin D3) [Vitamin D3] 25 mcg (1,000 unit) Capsule 25 mcg PO DAILY RF: 0 methotrexate sodium 2.5 mg tablet 15 mg PO WK RF: 0 metformin 500 mg tablet extended release 24 hr 500 mg PO QDD RF: 0 Discontinued prednisone 5 mg tablet 17.5 mg PO QPM RF: 0 prednisone 20 mg tablet 20 mg PO QAM RF: 0 Discharge Orders: Discharge Order (Routine); Ordered 08/05/21 Ordered By: Jeronimo Grant Admission Data Admit Date/Time: 07/23/21 21:53 Attending Provider: Cuco Fitzgerald Admit Provider: Marv Galvez Primary Care Provider: Dennis Alvarez Other Providers: [place],[facility] ; [facility] ; Marv Galvez ; Juan A Rodriguez ; Garland Terry ; Kareem Lebron ; Linden Bruce ; Paxton Kramer I. ; Prashanth Lehman II ; Elsi Diego ; Kalyan Pike ; Pawan Silvestre ; Antoine Galvan Other Interventions: Discharge Summary Assessment (RN) Last Done: 08/05/21 12:26 Supervising Physician Co-Signing Physician Notes I personally examined the patient and verified all childers points of history and exam, discussed case, and agree with decision making with Dr Grant sleeping comfortably when i see her. later informed that SNF can accept Vitals noted, resting comfortably no distress. HEENT normocephalic atraumatic mucous membranes moist. Breathing unlabored no accessory muscle use good effort. Skin shows no rashes no pallor or icterus. Neuro without focal deficits at rest. P JPimproving. Continue atovaquone. Given cost, I do wonder about potentially long-term looking at desensitization to sulfa if at all possible, particularly given the possibility she might need long-term prophylaxis even after current course of treatment is complete. Hypoxia has improved quite nicely. Sleep apneaCPAP once she is able to tolerate, follow. Weakness/deconditioningfor SNF, rehab emphasis, stable for transfer today Otherwise as above, anticoagulated Resident Activity Tracking Resident Involvement: Resident Care Provided Care Provided: Adult Hospital Medicine
[2021-08-05] MEDS: RIVAROXABAN 15 MG TAB PO SCH (16:39)
--- NOTE | 2021-08-05 16:59 | Billing Data ---
Date of Service August 05, 2021 Coding Level of Care Code D/C DAY MANAGEMENT <30 MINS
[2021-08-07] MEDS ORDERED: predniSONE 20 MG TAB PO SCH (09:00)
[2021-08-09 23:26] LABS: Source LUNG BIOPSY
[2021-08-12 10:17] LABS: Legionella Culture Source BW RIGHT MIDDLE LOBE
== END 2021-08-05 16:49 | DRG 393 ==
LOC: ED 14:03 → 2N 21:53 → SUATTDRO 21:53 → 2N 23:50 → 2S 07-27 16:58 → 1E 07-31 09:32 → 2S 08-01 18:44 → 3W 08-04 23:02
DX: B59 Pneumocystosis; M06.9 Rheumatoid arthritis, unspecified; Z96.653 Presence of artificial knee joint, bilateral; M35.3 Polymyalgia rheumatica; Z79.52 Long term (current) use of systemic steroids; I77.4 Celiac artery compression syndrome; K62.89 Other specified diseases of anus and rectum; D84.9 Immunodeficiency, unspecified; Z91.041 Radiographic dye allergy status; J96.01 Acute respiratory failure with hypoxia; I12.9 Hypertensive chronic kidney disease with stage 1 through stage 4 chronic kidney disease, or unspecified chronic kidney disease; Z88.2 Allergy status to sulfonamides; Z87.891 Personal history of nicotine dependence; E11.22 Type 2 diabetes mellitus with diabetic chronic kidney disease; I48.0 Paroxysmal atrial fibrillation; H40.9 Unspecified glaucoma; N18.30 Chronic kidney disease, stage 3 unspecified; R10.9 Unspecified abdominal pain; K21.9 Gastro-esophageal reflux disease without esophagitis; Z79.01 Long term (current) use of anticoagulants; Z79.84 Long term (current) use of oral hypoglycemic drugs; G47.33 Obstructive sleep apnea (adult) (pediatric); N17.9 Acute kidney failure, unspecified

== ENCOUNTER 2021-08-17 18:00 | Inpatient (IN) ==
--- NOTE | 2021-08-17 18:31 | Emergency Department Note ---
History of Present Illness General Chief complaint: Abdominal Pain Time Seen by Provider: 08/17/21 18:19 Source: patient, EMS, RN notes reviewed and old records reviewed Mode of arrival: EMS Limitations: no limitations History of Present Illness Maximum Pain Intensity: 10 This patient is a 76-year-old female comes in with 3 days of abdominal pain and diarrhea. She has had a lot of belching and lifting she says. She said no blood or melena stool. The pain is intermittent no chest pain and no shortness of breath. She was just in the hospital and discharged on the after having PJP pneumonia as well as well colitis. She finished a course of Zosyn and Flagyl. She was tested negative for C. difficile on the . Her pain got worse today. No dysuria or hematuria. Home Medications Medication Instructions Recorded Confirmed Type calcium carbonate 600 mg-vitamin 1 tab PO QAM 01/25/20 08/17/21 History D3 10 mcg (400 unit) tablet (Calcium 600 + D(3)) potassium gluconate 595 mg (99 mg) 99 mg PO QAM 01/25/20 08/17/21 History tablet rivaroxaban 20 mg tablet (Xarelto) 20 mg PO DAILY #90 tab 05/16/21 08/17/21 Rx zinc gluconate 50 mg tablet 50 mg PO DAILY 06/04/21 08/17/21 History folic acid 1 mg tablet 1 mg PO DAILY #90 tab 06/05/21 08/17/21 Rx amiodarone 200 mg tablet 200 mg PO DAILY #90 tab 07/01/21 08/17/21 Rx methotrexate sodium 2.5 mg tablet 15 mg PO WK 07/23/21 08/17/21 History acetaminophen 325 mg tablet 650 mg PO Q6 PRN MDD 3g 08/17/21 08/17/21 History (Tylenol) acetaminophen 325 mg tablet 650 mg PO Q6 PRN MDD 3g 08/17/21 08/17/21 History (Tylenol) atovaquone 750 mg/5 mL oral 750 mg PO BID 08/17/21 08/17/21 History suspension cholecalciferol (vitamin D3) 10 10 mcg PO DAILY 08/17/21 08/17/21 History mcg (400 unit) capsule (Vitamin D3) levofloxacin 250 mg tablet 250 mg PO DAILY 08/17/21 08/17/21 History melatonin 3 mg tablet 3 mg PO HS 08/17/21 08/17/21 History pantoprazole 40 mg tablet,delayed 40 mg PO DAILY 08/17/21 08/17/21 History release promethazine 25 mg/mL injection 25 mg IM Q6H PRN 08/17/21 08/17/21 History solution (Phenergan) tramadol 50 mg tablet 50 mg PO Q6 PRN 08/17/21 08/17/21 History Allergies Allergy/AdvReac Type Severity Reaction Status Date / Time Iodinated Contrast Media Allergy Intermediate Foot rash, Verified 08/17/21 20:09 swelling Sulfa (Sulfonamide Allergy Mild Rash, Verified 08/17/21 20:09 Antibiotics) itching sulfamethoxazole Allergy Mild Rash, Verified 08/17/21 20:09 itching prednisone Allergy Unknown Unknown Verified 08/17/21 20:09 Past Med/Surg History Medical History Abdominal pain, acute, bilateral lower quadrant Acute proctitis Chronic shoulder pain Pain started after CTR > per patient, PCP started her on prednisone for this which she they have been trying to slowly taper off of Diabetes mellitus, type 2 NIDDM Elevated lactic acid level Glaucoma Hypertension Morbid obesity Paroxysmal atrial fibrillation on Xarelto PMR (polymyalgia rheumatica) Sleep apnea CPAP Surgical History Cyst Scalp cysts excision (12/12/18): Grade view 1, MAC#3, ETT 7.5 at [facility] H/O colonoscopy History of ankle surgery Right History of carpal tunnel release Right History of hernia repair Laparoscopic hernia x2 History of knee replacement procedure of right knee R/L History of laminectomy Dr. Styles History of left knee replacement + subsequent Left knee I&D poly exchange History of lumpectomy of left breast benign History of revision of total knee arthroplasty R/L History of surgical procedure on eye proper using laser History of tooth extraction Hx of hysterectomy Hx of left cataract extraction Hx of right cataract extraction Family History Sister Breast cancer Father Heart disease Other No family history of adverse response to anesthesia Denies family history of Ovarian cancer Prostate cancer Myocardial infarction Lung cancer Colorectal cancer Social History Smoking Status: Never smoker Age Started Using Tobacco: 5; Age Quit Using Tobacco: 25; packs per day: 1; Years Smoked: 24; Second Hand Exposure: No; Hx Alcohol Use: No Hx Substance Use: No Preferred Language: Bahamian Communication Ability: Effective Visual Impairment: Limited Hearing Ability: Normal Water Operator Required: No Beliefs That Will Affect Care: None marital status: Current Living Situation: Spouse current occupational status: retired How many Children do You have: 5 Feels Safe at Home: Yes Childhood Exposure to Second-Hand Smoke: Yes caffeine: No during the past year weight has: decreased > 10 lbs Dental Care, Regularly: No Physical Activity Frequency: Does not Exercise Seatbelt Use: always Sunscreen Use: No Do you think of yourself as: straight/heterosexual Gender Identity: Female Assistive Devices: None Review of Systems A total of 10 systems reviewed and were otherwise negative Physical Exam Vital Signs Vital Signs - 24 hr 08/17/21 18:11 08/17/21 19:02 08/17/21 20:19 Temperature 36.6 C Temperature Source Oral Pulse Rate 70 Pulse Rate [Finger] 66 64 Respiratory Rate 20 22 22 Respiratory Effort / Characteristics Non-Labored Respiratory Depth Normal Blood Pressure 122/55 L Blood Pressure [Right Arm] 110/58 L 132/59 L Blood Pressure Mean 77 Blood Pressure Mean [Right Arm] 75 83 Pulse Oximetry 98 95 100 Oxygen Delivery Method Room Air Room Air Room Air Sepsis Recent Fever Within 48 Hours No Sepsis New/Unexplained Change in Mental Status N/A Sepsis Action Taken by Nursing No Action Required 08/17/21 20:51 Temperature Temperature Source Pulse Rate 85 Pulse Rate [Finger] Respiratory Rate 22 Respiratory Effort / Characteristics Respiratory Depth Blood Pressure Blood Pressure [Right Arm] Blood Pressure Mean Blood Pressure Mean [Right Arm] Pulse Oximetry 100 Oxygen Delivery Method Sepsis Recent Fever Within 48 Hours Sepsis New/Unexplained Change in Mental Status Sepsis Action Taken by Nursing General: Well developed well nourished chronically ill-appearing older female complaining of abdominal discomfort but in no acute distress, breathing comfortably on room air. Normal speech HEENT: Normal cephalic atraumatic. Pupils are equal round and reactive to light. Extraocular movements are intact. Oropharynx is pink with moist mucous membranes. No swelling of the mouth lips or tongue. Neck: Supple with a midline trachea. No meningeal signs or stiffness, no JVD or bruits. No Stridor. Chest: Clear to auscultation bilaterally. No wheezes or rhonchi. No increased work of breathing. Heart: Regular rate and rhythm without murmurs or gallops. Abdomen: Soft nontender, nondistended without rebound guarding or rigidity. Extremities: No cyanosis clubbing or edema. No calf tenderness or assymetry Spine/Back. Non tender to palpation. No CVA tenderness Skin: Good turgor without rashes. Neurologic exam: Cranial nerves two through 12 are intact. Motor and sensation are intact and symmetrical throughout. Course Administered Medications Sodium Chloride (Nss) 500 mls @ 125 mls/hr IV .Q4H EMMANUEL Stop: 09/16/21 20:59 Last Admin: 08/17/21 21:08 Dose: 125 mls/hr Documented by: [id number] Discontinued Medications Morphine Sulfate (Morphine Sulfate 2 Mg/Ml Carp) 2 mg IV NOW STA Stop: 08/17/21 20:05 Last Admin: 08/17/21 20:15 Dose: 2 mg Documented by: [id number] Ondansetron HCl (Ondansetron Inj 2 Mg/Ml 2 Ml Vial) 4 mg IV NOW STA Stop: 08/17/21 20:06 Last Admin: 08/17/21 20:15 Dose: 4 mg Documented by: [id number] Medical Decision Making Differential Diagnosis Colitis, infection, C. difficile, electrolyte or metabolic abnormality, sepsis, disease, pulmonary disease, Medical Records Attestation: I reviewed the patient's medical records. Home Medications Current Medication List: was personally reviewed by me Laboratory Data Attestation: I reviewed the patient's lab results. Result diagrams: 08/17/21 18:59 08/17/21 18:59 Lab Results 08/17/21 08/17/21 08/17/21 Range/Units 18:59 18:59 18:59 WBC 7.33 (4.8-10.8) K/uL RBC 3.31 L (4.2-5.4) M/uL Hgb 10.1 L (12.0-16.0) g/dL Hct 31.0 L (37-47) % MCV 93.7 (80-100) fL MCH 30.5 (25-34) pg MCHC 32.6 (32-36) g/dL RDW Std Deviation 64.7 H (36.4-46.3) fL RDW Coeff of Tiffany 18.9 H (11.5-14.5) % Plt Count 179 (130-400) K/uL MPV 9.2 (7.4-10.4) fL Immature Gran % (Auto) 0.7 % Neut % (Auto) 80.3 % Lymph % (Auto) 16.8 % [place] % (Auto) 2.2 % Eos % (Auto) 0.0 % Baso % (Auto) 0.0 % Neut # (Auto) 5.89 (1.4-6.5) K/uL Lymph # (Auto) 1.23 (1.2-3.4) K/uL [place] # (Auto) 0.16 (0.11-0.59) K/uL Eos # (Auto) 0.00 (0-0.5) K/uL Baso # (Auto) 0.00 (0-0.2) K/uL Immature Gran # (Auto) 0.05 H (0.00-0.02) K/uL PT 13.1 H (9.0-12.0) Seconds INR 1.2 H (0.9-1.1) Sodium 138 (136-145) mmol/L Potassium 3.9 (3.5-5.1) mmol/L Chloride 103 (98-107) mmol/L Carbon Dioxide 25 (21-32) mmol/L Anion Gap 10 (3-11) BUN 29 H (6-23) mg/dl Creatinine 1.67 H (0.6-1.2) mg/dl Est Cr Clr Drug Dosing 32.6 ml/min Est GFR ( Amer) 34.1 ml/min Est GFR (Non-Af Amer) 29.4 ml/min BUN/Creatinine Ratio 17.4 (10-20) Glucose 104 H (70-99(Fasting)) mg/dl Calcium 8.9 (8.5-10.1) mg/dl Total Bilirubin 1.4 H (0.2-1.0) mg/dl AST 15 (13-39) U/L ALT 29 (7-52) U/L Alkaline Phosphatase 52 (34-104) U/L Troponin I < 0.03 (0-0.04) ng/ml Total Protein 5.6 L (6.0-8.3) gm/dl Albumin 2.9 L (3.4-5.0) gm/dl Globulin 2.7 (2.5-4.0) gm/dl Albumin/Globulin Ratio 1.1 (0.9-2) Lipase 29 (11-82) U/L SARS-CoV-2, RNA, NAAT (NEGATIVE) 08/17/21 Range/Units 20:39 WBC (4.8-10.8) K/uL RBC (4.2-5.4) M/uL Hgb (12.0-16.0) g/dL Hct (37-47) % MCV (80-100) fL MCH (25-34) pg MCHC (32-36) g/dL RDW Std Deviation (36.4-46.3) fL RDW Coeff of Tiffayn (11.5-14.5) % Plt Count (130-400) K/uL MPV (7.4-10.4) fL Immature Gran % (Auto) % Neut % (Auto) % Lymph % (Auto) % [place] % (Auto) % Eos % (Auto) % Baso % (Auto) % Neut # (Auto) (1.4-6.5) K/uL Lymph # (Auto) (1.2-3.4) K/uL [place] # (Auto) (0.11-0.59) K/uL Eos # (Auto) (0-0.5) K/uL Baso # (Auto) (0-0.2) K/uL Immature Gran # (Auto) (0.00-0.02) K/uL PT (9.0-12.0) Seconds INR (0.9-1.1) Sodium (136-145) mmol/L Potassium (3.5-5.1) mmol/L Chloride (98-107) mmol/L Carbon Dioxide (21-32) mmol/L Anion Gap (3-11) BUN (6-23) mg/dl Creatinine (0.6-1.2) mg/dl Est Cr Clr Drug Dosing ml/min Est GFR ( Amer) ml/min Est GFR (Non-Af Amer) ml/min BUN/Creatinine Ratio (10-20) Glucose (70-99(Fasting)) mg/dl Calcium (8.5-10.1) mg/dl Total Bilirubin (0.2-1.0) mg/dl AST (13-39) U/L ALT (7-52) U/L Alkaline Phosphatase (34-104) U/L Troponin I (0-0.04) ng/ml Total Protein (6.0-8.3) gm/dl Albumin (3.4-5.0) gm/dl Globulin (2.5-4.0) gm/dl Albumin/Globulin Ratio (0.9-2) Lipase (11-82) U/L SARS-CoV-2, RNA, NAAT NEGATIVE (NEGATIVE) Imaging Data Attestation: I personally reviewed and interpreted this imaging study as follows: My Impression: Chest x-rayno acute infiltrate, failure, pneumothorax seen Radiologist's Impression: Abdomen/Pelvis CT 08/17/21 18:28 CT SCAN OF THE ABDOMEN AND PELVIS WITHOUT IV CONTRAST CLINICAL HISTORY: Generalized abdominal pain. COMPARISON STUDY: Abdominal CT dated 07/23/2021. TECHNIQUE: CT scan of the abdomen and pelvis is performed from the lung bases to the proximal femora. Images are reviewed in the axial, sagittal, and coronal harpreet santos. IV contrast was not administered for this examination. Note that the examination was performed in suboptimal fashion without oral and IV contrast. There is motion artifact, as well as streak artifact from the arms which could not be elevated above the abdomen. A dose lowering technique was utilized adhering to the principles of ALARA. CT DOSE: 1117.60 mGy.cm FINDINGS: Lung bases: The heart is normal in size and without pericardial effusion. Scarring/atelectasis is noted at both lung bases. There is no airspace c onsolidation typical for pneumonia or pleural effusion. Scattered calcified granulomas are observed. Liver: The unenhanced liver is normal in size, contour, and attenuation. There is no intrahepatic biliary ductal dilatation. Gallbladder: The gallbladder is filled with hyperdense sludge and gallstones. There is no CT evidence of acute cholecystitis. Spleen: Normal in size and attenuation. Pancreas: The unenhanced pancreas is atrophic and grossly unremarkable. Adrenal glands: Unremarkable. Kidneys: The unenhanced kidneys are atrophic and without hydronephrosis. Renal sinus cysts are seen bilaterally. There are no renal calculi identified. There is no evidence of contour deforming renal mass lesion. Abdominal vasculature: The abdominal aorta is normal in course and caliber noting advanced atherosclerotic calcification. Bowel: There is moderate colonic fecal retention. No bowel obstruction is identified. The appendix is not visualized. Peritoneum: There is no intraperitoneal free air or abdominal ascites. There is evidence of previous ventral hernia repair in the abdomen and pelvis. Lymphadenopathy: None. Pelvic viscera: The bladder is normal as visualized. The uterus is surgically absent. No adnexal lesion is seen. Skeletal structures: The skeletal structures are osteopenic. There are bilateral pars defects at L5 with 12 mm anterolisthesis at L5-S1. Moderate lumbosacral spondylosis is observed. Right hemilaminectomy change is suggested in the lumbar spine. No lytic or blastic lesions are seen. IMPRESSION: 1. Suboptimal examination without oral and IV contrast. There is also streak and motion artifact. 2. There are no acute infectious or inflammatory findings in the abdomen or pelvis. 3. Cholelithiasis with no CT evidence of acute cholecystitis. 4. Moderate colonic fecal retention. 5. Additional findings as above. ACT 112: Negative or not required by law. Electronically signed by: Chas Medellin M.D. 08/17/2021 7:25 PM ECG Data Attestation: I personally reviewed and interpreted this ECG as follows: Indication: + abdominal pain Rate (beats per minute): 66 Rhythm: + normal sinus and + other (Poor baseline but it is narrow complex and regular and I suspect normal sinus) ECG Intervals/blocks: + Normal QRS, + Normal QT and + Normal AL ECG [place]: + Normal ECG ST segments: + Normal ST segments ECG Findings: no PACs or no PVCs Comparison ECG Date: from (07/23/21) Change: no significant change MDM Narrative This patient has a complex medical history and had colitis. She comes in complaining of abdominal pain and diarrhea. We did establish an IV and blood work was obtained I also ordered a noncontrast CAT scan as she has a significant allergy to contrast material. Given the fact she was on recent antibiotics also ordered stool studies for C. difficile. She was reassessed frequently. She denies any nausea at present. Her daughter came and I talked her at length. Her daughter says she has been running low blood pressure off and on for last couple days as well. She is been complaining of abdominal pain and intermittent nausea mostly in the morning as well as some diarrhea although daughter tells me her last stool was normal. IV access was established. Chest x-ray does not show congestive heart failure, pneumonia, or pneumothorax. She was started on normal saline after this gently as she had recently had fluid overload due to fluid resuscitation from sepsis. EKG shows normal sinus rhythm no ischemic changes, she has no significant white count or fever. She has baseline anemia. She has baseline elevation in creatinine CAT scan does not show any acute abnormalities but is somewhat limited due to the patient's lack of ability to take IV contrast. She was given morphine 2 mg IV and Zofran 4 mg IV. She feels a little bit better I do think she needs to be admitted/observed for pain management and further treatment and evaluation. I have consulted Dr. Kramer from the [facility] hospitalist service to see in the ER for these measures. Her Covid testing was negative. Cardiac monitoring: Order was placed in the EMR for continuous cardiac care unit nurse. Upon my interpretation the patient was noted to be in normal sinus rhythm with a rate of 80. Impression & Plan Abdominal pain, Diarrhea, Nausea, Lab test negative for COVID-19 virus Discharge Plan Visit Data Chief Complaint: Abdominal Pain ED Provider: Jean Peterson Discharge Problem: Abdominal pain, Diarrhea, Nausea, Lab test negative for COVID-19 virus Forms Stand Alone Forms: My [facility] Prescriptions Prescriptions: No Action Xarelto 20 mg tablet 20 mg PO DAILY Qty: 90 RF: 3 folic acid 1 mg tablet 1 mg PO DAILY Qty: 90 RF: 3 amiodarone 200 mg tablet 200 mg PO DAILY Qty: 90 RF: 3 zinc gluconate 50 mg tablet 50 mg PO DAILY RF: 0 calcium carbonate-vitamin D3 [Calcium 600 + D(3)] 600 mg(1,500mg) -400 unit Tablet 1 tab PO QAM RF: 0 potassium gluconate 595 mg (99 mg) Tablet 99 mg PO QAM RF: 0 methotrexate sodium 2.5 mg tablet 15 mg PO WK RF: 0 tramadol 50 mg tablet 50 mg PO Q6 PRN (Reason: Pain moderate to severe) RF: 0 acetaminophen [Tylenol] 325 mg Tablet 650 mg PO Q6 MDD 3g PRN (Reason: pain 1-10) RF: 0 acetaminophen [Tylenol] 325 mg Tablet 650 mg PO Q6 MDD 3g PRN (Reason: temp>100) RF: 0 cholecalciferol (vitamin D3) [Vitamin D3] 10 mcg (400 unit) Capsule 10 mcg PO DAILY RF: 0 melatonin 3 mg Tablet 3 mg PO HS RF: 0 pantoprazole 40 mg Tablet,Delayed Release (Dr/Ec) 40 mg PO DAILY RF: 0 promethazine [Phenergan] 25 mg/mL Solution 25 mg IM Q6H PRN (Reason: nausea/vomiting) RF: 0 levofloxacin 250 mg Tablet 250 mg PO DAILY RF: 0 atovaquone 750 mg/5 mL Suspension 750 mg PO BID RF: 0 Referrals Referrals: [facility] [Non-Staff] -
[2021-08-17 19:20] LABS: Hemoglobin 10.1 g/dL (12.0-16.0); Immature Granulocytes # (auto) 0.05 K/uL (0.00-0.02); Immature Granulocytes % (auto) 0.7 %; Lymphocytes # (auto) 1.23 K/uL (1.2-3.4); Lymphocytes % (auto) 16.8 %; Mean Corpuscular Hemoglobin 30.5 pg (25-34); Mean Corpuscular Hgb Conc 32.6 g/dL (32-36); Mean Corpuscular Volume 93.7 fL (80-100); Mean Platelet Volume 9.2 fL (7.4-10.4); Monocytes # (auto) 0.16 K/uL (0.11-0.59); Monocytes % (auto) 2.2 %; Neutrophils # (auto) 5.89 K/uL (1.4-6.5); Neutrophils % (auto) 80.3 %; Platelet Count 179 K/uL (130-400); RDW Coefficient of Variation 18.9 % (11.5-14.5); RDW Standard Deviation 64.7 fL (36.4-46.3); Red Blood Count 3.31 M/uL (4.2-5.4); White Blood Count 7.33 K/uL (4.8-10.8)
--- NOTE | 2021-08-17 19:28 | CT Scan Report ---
CT SCAN OF THE ABDOMEN AND PELVIS WITHOUT IV CONTRAST CLINICAL HISTORY: Generalized abdominal pain. COMPARISON STUDY: Abdominal CT dated 07/23/2021. TECHNIQUE: CT scan of the abdomen and pelvis is performed from the lung bases to the proximal femora. Images are reviewed in the axial, sagittal, and coronal planes. IV contrast was not administered for this examination. Note that the examination was performed in suboptimal fashion without oral and IV contrast. There is motion artifact, as well as streak artifact from the arms which could not be eleva puja above the abdomen. A dose lowering technique was utilized adhering to the principles of ALARA. CT DOSE: 1117.60 mGy.cm FINDINGS: Lung bases: The heart is normal in size and without pericardial effusion. Scarring/atelectasis is not ed at both lung bases. There is no airspace consolidation typical for pneumonia or pleural effusion. Scattered calcified granulomas are observed. Liver: The unenhanced liver is normal in size, contour, and attenuation. There is no intrahepatic ester iary ductal dilatation. Gallbladder: The gallbladder is filled with hyperdense sludge and gallstones. There is no CT evidence of acute cholecystitis. Spleen: Normal in size and attenuation. Pancreas: The unenhanced pancreas is atrophic and grossly unremarkable. Adrenal glands: Unremarkable. Kidneys: The unenhanced kidneys are atrophic and without hydronephrosis. Renal sinus cysts are seen b ilaterally. There are no renal calculi identified. There is no evidence of contour deforming renal ma ss lesion. Abdominal vasculature: The abdominal aorta is normal in course and caliber noting advanced atheroscle rotic calcification. Bowel: There is moderate colonic fecal retention. No bowel obstruction is identified. The appendix is not visualized. Peritoneum: There is no intraperitoneal free air or abdominal ascites. There is evidence of previous ventral hernia repair in the abdomen and pelvis. Lymphadenopathy: None. Pelvic viscera: The bladder is normal as visualized. The uterus is surgically absent. No adnexal lesi on is seen. Skeletal structures: The skeletal structures are osteopenic. There are bilateral pars defects at L5 w ith 12 mm anterolisthesis at L5-S1. Moderate lumbosacral spondylosis is observed. Right hemilaminecto my change is suggested in the lumbar spine. No lytic or blastic lesions are seen. IMPRESSION: 1. Suboptimal examination without oral and IV contrast. There is also streak and motion artifact. 2. There are no acute infectious or inflammatory findings in the abdomen or pelvis. 3. Cholelithiasis with no CT evidence of acute cholecystitis. 4. Moderate colonic fecal retention. 5. Additional findings as above. ACT 112: Negative or not required by law. Electronically signed by: Chas Medellin M.D. 08/17/2021 7:25 PM
[2021-08-17 19:33] LABS: INR 1.2 (0.9-1.1); Prothrombin Time 13.1 Seconds (9.0-12.0)
[2021-08-17 19:41] LABS: Alanine Aminotransferase 29 U/L (7-52); Albumin Globulin Ratio 1.1 (0.9-2); Albumin Level 2.9 gm/dl (3.4-5.0); Alkaline Phosphatase 52 U/L (34-104); Anion Gap 10 (3-11); Aspartate Aminotransferase 15 U/L (13-39); BUN Creatinine Ratio 17.4 (10-20); Bilirubin,Total 1.4 mg/dl (0.2-1.0); Blood Urea Nitrogen 29 mg/dl (6-23); Calcium 8.9 mg/dl (8.5-10.1); Carbon Dioxide 25 mmol/L (21-32); Chloride 103 mmol/L (98-107); Creatinine Clr Calc Pharmacy 32.6 ml/min; Est GFR (African American) 34.1 ml/min; Est GFR (Non-African American) 29.4 ml/min; Globulin 2.7 gm/dl (2.5-4.0); Glucose 104 mg/dl (70-99(Fasting)); Lipase 29 U/L (11-82); Potassium 3.9 mmol/L (3.5-5.1); Sodium 138 mmol/L (136-145); Total Protein 5.6 gm/dl (6.0-8.3); Troponin I < 0.03 ng/ml (0-0.04)
[2021-08-17] MEDS ORDERED: MoRPHine SULFATE 2 MG/ML CARP IV STA (20:04)
[2021-08-17] MEDS ORDERED: ONDANSETRON INJ 2 MG/ML 2 ML VIAL IV STA (20:05)
[2021-08-17] MEDS ORDERED: SODIUM CHLORIDE 0.9% 500 ML IV SCH (21:00)
[2021-08-17] MEDS ORDERED: FAMOTIDINE 20MG IV PUSH 20 MG/5 ML SYR IV STA (22:23)
--- NOTE | 2021-08-17 22:35 | History & Physical Report ---
Date of Service August 17, 2021 Assessment & Plan (1) Abdominal pain: Plan: 76-year-old female with multiple medical problems presenting with several days of progressive upper abdominal pain, postprandial with associated nausea belching. Abdomen is tender in the epigastric region as well as right upper quadrant. Labs significant for mild elevation of total bilirubin of 1.4. Differential to include biliary colic, gallbladder disease, gastritis, peptic ulcer, intestinal angina (patient with known celiac artery stenosis). Gallstones present on CT but no CT evidence of acute cholecystitis. Patient is afebrile with no leukocytosis. Low suspicion for CAD/inferior ME as troponin is negative and EKG without acute changes Admit to medical Check right upper quadrant ultrasound Morphine as needed for pain control Zofran as needed for nausea Bowel regimen below Moderate stool burden noted on CT as well. Will provide bowel regimen in form of Colace 100 mg p.o. twice daily as needed, Dulcolax 10 mg NC daily as needed and MiraLAX as needed (2) Pneumocystis jiroveci pneumonia: Plan: Patient had episode of acute hypoxic respiratory failure during her last hospital stay. Her CT of the chest showed multifocal groundglass consolidations greatest at the lung bases. She had elevated Fungitell of greater than 500 and PGP PCR positive via BAL on 07/31/2021. She was evaluated by pulmonary and was treated with atovaquone (secondary to Bactrim infection). She is to continue atovaquone x3 weeks after discharge (would place end date at 08/26/2021). Patient with immunocompromise status secondary to inadvertent prolonged course of p.o. prednisone. Continue atovaquone 750 mg p.o. twice daily (3) Rheumatoid arthritis: Plan: Patient was previously on steroids which have since been weaned down Continue methotrexate 50 mg p.o. q. weekly Continue folic acid 1 mg p.o. daily (4) CKD (chronic kidney disease), stage III: Plan: BUN = 29, creatinine = 1.67 Avoid nephrotoxic agents Gentle IV fluids Repeat chemistry panel in a.m. (5) GERD (gastroesophageal reflux disease): Plan: Chronic. Continue Protonix 4 mg p.o. daily Pepcid 40 mg p.o. every morning Maalox as needed for heartburn (6) Obstructive sleep apnea: Plan: Chronic Continue CPAP nightly (7) Hypertension: Plan: With reports of borderline low blood pressures from [facility]. Blood pressures here have been acceptable. Patient was recently taken off her antihypertensive agents Continue to monitor blood pressure Was previously on hydrochlorothiazide, lisinopril (8) Diabetes mellitus, type 2: Plan: Diet controlled. Last hemoglobin A1c = 5.7 on 06/04/2021. Blood glucose is acceptable. Hold metformin (9) Paroxysmal atrial fibrillation: Plan: Rate controlled, patient anticoagulated with rivaroxaban. Continue amiodarone 200 mg p.o. daily Continue rivaroxaban. Per pharmacy will redose to 50 mg daily for renal function Plan: FENLR at 80 mL/h x 2 L, electrolytes within normal limits, clear liquid diet as tolerated Prophylaxispatient anticoagulation with rivaroxaban Codefull per discussion with patient, daughter at bedside Dispositionadmission to medical History of Present Illness Chief Complaint: Abdominal pain Primary Care Provider: Dennis Alvarez MD Cecilia Salazar is a 76-year-old female with history of diabetes, hypertension, rheumatoid arthritis, paroxysmal atrial fibrillation on rivaroxaban anticoagulation presenting with abdominal pain. Patient was admitted to [facility] from 07/23/21 - 08/05/21 after presenting with alternating diarrhea and constipation as well as abdominal pain. She was found to have proctocolitis and was treated with Zosyn, Flagyl and ertapenem. Patient had an episode of acute hypoxic respiratory failure secondary to PJP pneumonia. she was treated with atovaquone. [facility] Patient returns today with several complaints. Daughter is at bedside and assists with history. Reports the patient's blood pressure has been low over the last several days. Systolics in the 90s and diastolics in the 40s. Patient reports feeling dizziness with these blood pressures. Her blood pressure medications have recently been discontinued. Additionally, the patient reports persistent upper abdominal pain which has been going on for the last week. Pain typically begins in the epigastric and right upper quadrant then radiates bandlike across the upper abdomen. The pain is sharp in nature and is associated with nausea. No radiation through to the back but occasionally radiates to the right shoulder. Over the last week the pain was fairly consistent with acute worsening after meals. Today the pain was severe all day which prompted her to come to the ER. Additionally, patient has been hiccuping and belching quite a bit. She had 2 episodes of nonbloody/nonbilious vomiting this morning. Patient reports decreased appetite and poor oral intake over the past several days secondary to discomfort. She denies abdominal distention. Last bowel movement was today with no blood or mucus present. No additional complaints. In the ER patient is afebrile, hemodynamically stable. ER course: Normal saline, morphine, Zofran Allergies Allergy/AdvReac Type Severity Reaction Status Date / Time Iodinated Contrast Media Allergy Intermediate Foot rash, Verified 08/17/21 20:09 swelling Sulfa (Sulfonamide Allergy Mild Rash, Verified 08/17/21 20:09 Antibiotics) itching sulfamethoxazole Allergy Mild Rash, Verified 08/17/21 20:09 itching prednisone Allergy Unknown Unknown Verified 08/17/21 20:09 Home Medications Medication Instructions Recorded Confirmed Type calcium carbonate 600 mg-vitamin 1 tab PO QAM 01/25/20 08/17/21 History D3 10 mcg (400 unit) tablet (Calcium 600 + D(3)) potassium gluconate 595 mg (99 mg) 99 mg PO QAM 01/25/20 08/17/21 History tablet rivaroxaban 20 mg tablet (Xarelto) 20 mg PO DAILY #90 tab 05/16/21 08/17/21 Rx zinc gluconate 50 mg tablet 50 mg PO DAILY 06/04/21 08/17/21 History folic acid 1 mg tablet 1 mg PO DAILY #90 tab 06/05/21 08/17/21 Rx amiodarone 200 mg tablet 200 mg PO DAILY #90 tab 07/01/21 08/17/21 Rx methotrexate sodium 2.5 mg tablet 15 mg PO WK 07/23/21 08/17/21 History acetaminophen 325 mg tablet 650 mg PO Q6 PRN MDD 3g 08/17/21 08/17/21 History (Tylenol) acetaminophen 325 mg tablet 650 mg PO Q6 PRN MDD 3g 08/17/21 08/17/21 History (Tylenol) atovaquone 750 mg/5 mL oral 750 mg PO BID 08/17/21 08/17/21 History suspension cholecalciferol (vitamin D3) 10 10 mcg PO DAILY 08/17/21 08/17/21 History mcg (400 unit) capsule (Vitamin D3) levofloxacin 250 mg tablet 250 mg PO DAILY 08/17/21 08/17/21 History melatonin 3 mg tablet 3 mg PO HS 08/17/21 08/17/21 History pantoprazole 40 mg tablet,delayed 40 mg PO DAILY 08/17/21 08/17/21 History release promethazine 25 mg/mL injection 25 mg IM Q6H PRN 08/17/21 08/17/21 History solution (Phenergan) tramadol 50 mg tablet 50 mg PO Q6 PRN 08/17/21 08/17/21 History Past Med/Surg History Medical History Abdominal pain, acute, bilateral lower quadrant Acute proctitis Chronic shoulder pain Pain started after [facility] > per patient, PCP started her on prednisone for this which she they have been trying to slowly taper off of Diabetes mellitus, type 2 NIDDM Elevated lactic acid level Glaucoma Hypertension Morbid obesity Paroxysmal atrial fibrillation on Xarelto PMR (polymyalgia rheumatica) Sleep apnea CPAP Surgical History Cyst Scalp cysts excision (12/12/18): Grade view 1, MAC#3, ETT 7.5 at [facility] H/O colonoscopy History of ankle surgery Right History of carpal tunnel release Right History of hernia repair Laparoscopic hernia x2 History of knee replacement procedure of right knee R/L History of laminectomy Dr. Styles History of left knee replacement + subsequent Left knee I&D poly exchange History of lumpectomy of left breast benign History of revision of total knee arthroplasty R/L History of surgical procedure on eye proper using laser History of tooth extraction Hx of hysterectomy Hx of left cataract extraction Hx of right cataract extraction Family History Sister Breast cancer Father Heart disease Other No family history of adverse response to anesthesia Denies family history of Ovarian cancer Prostate cancer Myocardial infarction Lung cancer Colorectal cancer Social History Smoking Status: Never smoker Age Started Using Tobacco: 5; Age Quit Using Tobacco: 25; packs per day: 1; Years Smoked: 24; Second Hand Exposure: No; Hx Alcohol Use: No Hx Substance Use: No Preferred Language: Latvian Communication Ability: Effective Visual Impairment: Limited Hearing Ability: Normal Creative Writing Professor Required: No Beliefs That Will Affect Care: None marital status: Current Living Situation: Rehab current occupational status: retired How many Children do You have: 5 Other Information That Helps Us Care for You: No Feels Safe at Home: Yes Safety Concerns: Feels Safe At This Time Childhood Exposure to Second-Hand Smoke: Yes caffeine: No during the past year weight has: decreased > 10 lbs Dental Care, Regularly: No Physical Activity Frequency: Does not Exercise Seatbelt Use: always Sunscreen Use: No Do you think of yourself as: straight/heterosexual Gender Identity: Female Assistive Devices: Cane, CPAP and Walker Review of Systems Review of Systems: All systems reviewed & are unremarkable except as noted in HPI & below + Abdominal pain, nausea, vomiting Physical Exam Physical Exam: General: patient resting comfortably, NAD, non-toxic in appearance, AA&O x 4 Skin: warm, dry, intact, no rashes or lesions HEENT: NC/AT, PERRL, EOMI, anicteric sclera, conjunctiva without injection, external ear normal to inspection and nontender, nares patent, moist mucus membranes, dentition intact, no oropharyngeal lesions, neck supple, trachea midline, no LAD, no thyromegaly, no JVD Heart: +S1/S2, regular, no m/r/g Lungs: equal air entry bilaterally, no rales/rhonchi/wheezes Abd: +BS, soft, nondistended, tender to palpation in the midepigastric region as well as right upper quadrant, Cruz sign is negative, no rebound/guarding/peritoneal signs Ext: warm, 2+ pulses in UE/LE bilaterally, no clubbing/cyanosis or edema Neuro: nonfocal, patient AA&O x 4, speech intact, no facial droop, moving all extremities on command with equal strength 5/5 Results & Data Results & Data ([facility]) Vital Signs (Past 12 Hours) Vital Signs Temp Pulse Pulse Resp BP BP Pulse Ox 08/17/21 21:59 62 18 127/67 100 08/17/21 21:57 89 L 08/17/21 20:51 85 22 100 08/17/21 20:19 64 22 132/59 L 100 08/17/21 19:02 66 22 110/58 L 95 08/17/21 18:11 36.6 C 70 20 122/55 L 98 Laboratory Results Laboratory Results WBC 7.33 K/uL (4.8-10.8) 08/17/21 18:59 RBC 3.31 M/uL (4.2-5.4) L 08/17/21 18:59 Hgb 10.1 g/dL (12.0-16.0) L 08/17/21 18:59 Hct 31.0 % (37-47) L 08/17/21 18:59 MCV 93.7 fL (80-100) 08/17/21 18:59 MCH 30.5 pg (25-34) 08/17/21 18:59 MCHC 32.6 g/dL (32-36) 08/17/21 18:59 RDW Std Deviation 64.7 fL (36.4-46.3) H 08/17/21 18:59 RDW Coeff of Tiffany 18.9 % (11.5-14.5) H 08/17/21 18:59 Plt Count 179 K/uL (130-400) 08/17/21 18: MPV 9.2 fL (7.4-10.4) 08/17/21 18:59 Immature Gran % (Auto) 0.7 % 08/17/21 18:59 Neut % (Auto) 80.3 % 08/17/21 18:59 Lymph % (Auto) 16.8 % 08/17/21 18:59 Nash % (Auto) 2.2 % 08/17/21 18:59 Eos % (Auto) 0.0 % 08/17/21 18:59 Baso % (Auto) 0.0 % 08/17/21 18:59 Neut # (Auto) 5.89 K/uL (1.4-6.5) 08/17/21 18:59 Lymph # (Auto) 1.23 K/uL (1.2-3.4) 08/17/21 18:59 Nash # (Auto) 0.16 K/uL (0.11-0.59) 08/17/21 18:59 Eos # (Auto) 0.00 K/uL (0-0.5) 08/17/21 18:59 Baso # (Auto) 0.00 K/uL (0-0.2) 08/17/21 18:59 Immature Gran # (Auto) 0.05 K/uL (0.00-0.02) H 08/17/21 18:59 PT 13.1 Seconds (9.0-12.0) H 08/17/21 18:59 INR 1.2 (0.9-1.1) H 08/17/21 18:59 Sodium 138 mmol/L (136-145) 08/17/21 18:59 Potassium 3.9 mmol/L (3.5-5.1) 08/17/21 18:59 Chloride 103 mmol/L (98-107) 08/17/21 18:59 Carbon Dioxide 25 mmol/L (21-32) 08/17/21 18:59 Anion Gap 10 (3-11) 08/17/21 18:59 BUN 29 mg/dl (6-23) H 08/17/21 18:59 Creatinine 1.67 mg/dl (0.6-1.2) H 08/17/21 18:59 Est Cr Clr Drug Dosing 32.6 ml/min 08/17/21 18:59 Est GFR ( Amer) 34.1 ml/min 08/17/21 18:59 Est GFR (Non-Af Amer) 29.4 ml/min 08/17/21 18:59 BUN/Creatinine Ratio 17.4 (10-20) 08/17/21 18:59 Glucose 104 mg/dl (70-99(Fasting)) H 08/17/21 18:59 Calcium 8.9 mg/dl (8.5-10.1) 08/17/21 18:59 Magnesium 1.8 mg/dl (1.7-2.4) 08/17/21 18:59 Total Bilirubin 1.4 mg/dl (0.2-1.0) H 08/17/21 18:59 AST 15 U/L (13-39) 08/17/21 18:59 ALT 29 U/L (7-52) 08/17/21 18:59 Alkaline Phosphatase 52 U/L (34-104) 08/17/21 18:59 Troponin I < 0.03 ng/ml (0-0.04) 08/17/21 18:59 Total Protein 5.6 gm/dl (6.0-8.3) L 08/17/21 18:59 Albumin 2.9 gm/dl (3.4-5.0) L 08/17/21 18:59 Globulin 2.7 gm/dl (2.5-4.0) 08/17/21 18:59 Albumin/Globulin Ratio 1.1 (0.9-2) 08/17/21 18:59 Lipase 29 U/L (11-82) 08/17/21 18:59 Urine Color Yellow 08/17/21 23:09 Urine Appearance Clear (Clear) 08/17/21 23:09 Urine pH 7.5 (4.5-7.5) 08/17/21 23:09 Ur Specific [place] 1.015 (1.000-1.030) 08/17/21 23:09 Urine Protein Trace (Negative) H 08/17/21 23:09 Urine Glucose (UA) Negative (Negative) 08/17/21 23:09 Urine Ketones Negative (Negative) 08/17/21 23:09 Urine Blood Negative (Negative) 08/17/21 23:09 Urine Nitrite Negative (Negative) 08/17/21 23:09 Urine Bilirubin Negative (Negative) 08/17/21 23:09 Urine Urobilinogen Negative (Negative) 08/17/21 23:09 Ur Leukocyte Esterase Trace (Negative) H 08/17/21 23:09 Urine WBC (Auto) 1-5 /hpf (0-5) 08/17/21 23:09 Urine RBC (Auto) 0-4 /hpf (0-4) 08/17/21 23:09 U Hyaline Cast (Auto) 10-30 /lpf (0-5) H 08/17/21 23:09 U Epithel Cells (Auto) >30 /lpf (0-5) H 08/17/21 23:09 Urine Bacteria (Auto) 1+ (Negative) H 08/17/21 23:09 Granular Casts 1-5 /lpf (0) H 08/17/21 23:09 Urine Yeast Budding (None Prsent) A 08/17/21 23:09 Nasal Screen MRSA (PCR) Negative (Negative) 08/18/21 00:25 SARS-CoV-2, RNA, NAAT NEGATIVE (NEGATIVE) 08/17/21 20:39 Impressions Abdomen/Pelvis CT 08/17/21 18:28 CT SCAN OF THE ABDOMEN AND PELVIS WITHOUT IV CONTRAST CLINICAL HISTORY: Generalized abdominal pain. COMPARISON STUDY: Abdominal CT dated 07/23/2021. TECHNIQUE: CT scan of the abdomen and pelvis is performed from the lung bases to the proximal femora. Images are reviewed in the axial, sagittal, and coronal planes. IV contrast was not administered for this examination. Note that the examination was performed in suboptimal fashion without oral and IV contrast. There is motion artifact, as well as streak artifact from the arms which could not be elevated above the abdomen. A dose lowering technique was utilized adhering to the principles of ALARA. CT DOSE: 1117.60 mGy.cm FINDINGS: Lung bases: The heart is normal in size and without pericardial effusion. Scarring/atelectasis is noted at both lung bases. There is no airspace consolidation typical for pneumonia or pleural effusion. Scattered calcified granulomas are observed. Liver: The unenhanced liver is normal in size, contour, and attenuation. There is no intrahepatic biliary ductal dilatation. Gallbladder: The gallbladder is filled with hyperdense sludge and gallstones. There is no CT evidence of acute cholecystitis. Spleen: Normal in size and attenuation. Pancreas: The unenhanced pancreas is atrophic and grossly unremarkable. Adrenal glands: Unremarkable. Kidneys: The unenhanced kidneys are atrophic and without hydronephrosis. Renal sinus cysts are seen bilaterally. There are no renal calculi identified. There is no evidence of contour deforming renal mass lesion. Abdominal vasculature: The abdominal aorta is normal in course and caliber noting advanced atherosclerotic calcification. Bowel: There is moderate colonic fecal retention. No bowel obstruction is identified. The appendix is not visualized. Peritoneum: There is no intraperitoneal free air or abdominal ascites. There is evidence of previous ventral hernia repair in the abdomen and pelvis. Lymphadenopathy: None. Pelvic viscera: The bladder is normal as visualized. The uterus is surgically absent. No adnexal lesion is seen. Skeletal structures: The skeletal structures are osteopenic. There are bilateral pars defects at L5 with 12 mm anterolisthesis at L5-S1. Moderate lumbosacral spondylosis is observed. Right hemilaminectomy change is suggested in the lumbar spine. No lytic or blastic lesions are seen. IMPRESSION: 1. Suboptimal examination without oral and IV contrast. There is also streak and motion artifact. 2. There are no acute infectious or inflammatory findings in the abdomen or pelvis. 3. Cholelithiasis with no CT evidence of acute cholecystitis. 4. Moderate colonic fecal retention. 5. Additional findings as above. ACT 112: Negative or not required by law. Electronically signed by: Chas Medellin M.D. 08/17/2021 7:25 PM ECG Additional Comments: Poor quality EKG read as accelerated junctional rhythm with rate of 66, no acute ischemic changes Code Status & VTE Plan VTE Prophylaxis Plan VTE Prophylaxis will be ordered: Yes PG Care Time/CCT Total # of Minutes Spent Total Time Spent with Patient: Total time spent is greater than 50% in coordination of care (as documented) at patient's floor/unit and/or counseling patient: Coding Level of Care Code 00663 Initial Inpt Care Lvl 3 Diagnoses Abdominal pain R10.84 Abdominal location: generalized Pneumocystis jiroveci pneumonia B59 Rheumatoid arthritis M06.9 CKD (chronic kidney disease), stage III N18.31 Chronic kidney disease stage 3 subtype: stage 3a (GFR 45-59) GERD (gastroesophageal reflux disease) K21.9 Esophagitis presence: without esophagitis Obstructive sleep apnea G47.33 Hypertension I10 Hypertension type: unspecified Diabetes mellitus, type 2 E11.22; N18.31 Diabetes mellitus termite 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 use: without senior care use Diabetes mellitus complication status: with kidney complications Diabetes mellitus complication detail: with chronic kidney disease Chronic kidney disease stage: stage 3 (moderate) Chronic kidney disease stage 3 subtype: stage 3a (GFR 45-59) Paroxysmal atrial fibrillation I48.0 (1) Abdominal pain Abdominal location: generalized Qualified Code(s): R10.84 - Generalized abdominal pain (2) CKD (chronic kidney disease), stage III Chronic kidney disease stage 3 subtype: stage 3a (GFR 45-59) Qualified Code(s): N18.31 - Chronic kidney disease, stage 3a (3) GERD (gastroesophageal reflux disease) Esophagitis presence: without esophagitis Qualified Code(s): K21.9 - Gastro- esophageal reflux disease without esophagitis (4) Hypertension Hypertension type: unspecified Qualified Code(s): I10 - Essential (primary) hypertension (5) Diabetes mellitus, type 2 Diabetes mellitus termite 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 use: without termite helper use Diabetes mellitus complication status: with kidney complications Diabetes mellitus complication detail: with chronic kidney disease Chronic kidney disease stage: stage 3 (moderate) Chronic kidney disease stage 3 subtype: stage 3a (GFR 45-59) Qualified Code(s): E11.22 - Type 2 diabetes mellitus with diabetic chronic kidney disease; N18.31 - Chronic kidney disease, stage 3a
[2021-08-17 23:29] LABS: Appearance Urine Clear (Clear); Bilirubin Urine Negative (Negative); Blood Urine Negative (Negative); Color Urine Yellow; Epithelial Cell Urine Auto >30 /lpf (0-5); Glucose Urine UA Negative (Negative); Ketones Urine Negative (Negative); Leukocyte Esterase Urine Trace (Negative); Nitrite Urine Negative (Negative); RBC Urine Automated 0-4 /hpf (0-4); Specific Gravity Urine 1.015 (1.000-1.030); Urobilinogen Urine Negative (Negative); pH Urine 7.5 (4.5-7.5)
[2021-08-17] MEDS ORDERED: bisacodyL 10 MG SUPP PR PRN (23:49)
[2021-08-17] MEDS ORDERED: POLYETHYLENE (MIRALAX) 17 GM PACK PO PRN (23:49)
[2021-08-17] MEDS ORDERED: MoRPHine SULFATE 2 MG/ML CARP IV PRN ×2 (23:49)
[2021-08-17] MEDS ORDERED: traMADol HCL 50 MG TABLET PO PRN (23:49)
[2021-08-17 23:54] LABS: Protein Urine Trace (Negative)
[2021-08-17 23:59] LABS: Bacteria Urine Automated 1+ (Negative)
[2021-08-18] MEDS: LACTATED RINGER'S 1,000 ML IV SCH ×2 (00:18→12:42)
[2021-08-18] MEDS ORDERED: ALUMINUM/MAGNESIUM SUSP 30 ML UDC PO PRN (02:48)
--- NOTE | 2021-08-18 07:47 | XRay Report ---
XR chest 1V portable CLINICAL HISTORY: abd pain TECHNIQUE: Single frontal radiograph of the chest was obtained. Comparison: Comparison is made to chest radiograph 08/03/2021 FINDINGS: No lines and tubes are seen. Calcified aortic knob is seen. The lungs are clear. No evidence of pleur al effusion or pneumothorax. Degenerative changes are seen in the skeleton. IMPRESSION: No acute chest disease. ACT 112: Negative or not required by law. Electronically signed by: Srinivasan Sandoval M.D. 08/18/2021 7:45 AM
[2021-08-18 08:11] LABS: Basophils # (auto) 0.01 K/uL (0-0.2); Basophils % (auto) 0.2 %; Eosinophils # (auto) 0.07 K/uL (0-0.5); Eosinophils % (auto) 1.2 %; Hematocrit (blood only) 29.7 % (37-47); Hemoglobin 9.8 g/dL (12.0-16.0); Immature Granulocytes # (auto) 0.04 K/uL (0.00-0.02); Immature Granulocytes % (auto) 0.7 %; Lymphocytes # (auto) 1.89 K/uL (1.2-3.4); Lymphocytes % (auto) 31.2 %; Mean Corpuscular Hemoglobin 30.9 pg (25-34); Mean Corpuscular Volume 93.7 fL (80-100); Mean Platelet Volume 8.4 fL (7.4-10.4); Monocytes # (auto) 0.16 K/uL (0.11-0.59); Monocytes % (auto) 2.6 %; Neutrophils # (auto) 3.88 K/uL (1.4-6.5); Neutrophils % (auto) 64.1 %; Platelet Count 176 K/uL (130-400); RDW Coefficient of Variation 18.9 % (11.5-14.5); RDW Standard Deviation 65.4 fL (36.4-46.3); Red Blood Count 3.17 M/uL (4.2-5.4); White Blood Count 6.05 K/uL (4.8-10.8)
[2021-08-18] MEDS: ATOVAQUONE 750 MG/5 ML UDC PO SCH ×2 (08:11→21:37)
[2021-08-18] MEDS: FAMOTIDINE 40 MG TABLET PO SCH (08:11)
[2021-08-18] MEDS: FOLIC ACID 1 MG TAB PO SCH (08:11)
[2021-08-18] MEDS: PANTOprazole 40 MG TAB PO SCH (08:11)
--- NOTE | 2021-08-18 08:11 | Hospitalist Progress Note ---
Date of Service August 18, 2021 Assessment & Plan (1) Abdominal pain: Plan: 76-year-old female with multiple medical problems presenting with several days of progressive upper abdominal pain, postprandial with associated nausea belching. Abdomen is tender in the epigastric region as well as right upper quadrant. Labs significant for mild elevation of total bilirubin of 1.4. Differential to include biliary colic, gallbladder disease, gastritis, peptic ulcer, intestinal angina (patient with known celiac artery stenosis). Gallstones present on CT but no CT evidence of acute cholecystitis. Patient is afebrile with no leukocytosis. Low suspicion for CAD/inferior CT as troponin is negative and EKG without acute changes He may be from constipation and hernias. We will attempt to increase cathartic agent applied abdominal binder and see if we can improve her discomfort. Morphine as needed for pain control Zofran as needed for nausea Bowel regimen below Moderate stool burden noted on CT as well, daily senna and MiraLAX at this point time (2) Pneumocystis jiroveci pneumonia: Plan: Patient had episode of acute hypoxic respiratory failure during her last hospital stay. Her CT of the chest showed multifocal groundglass consolidations greatest at the lung bases. She had elevated Fungitell of greater than 500 and PGP PCR positive via BAL on 07/31/2021. She was evaluated by pulmonary and was treated with atovaquone (secondary to Bactrim infection). She is to continue atovaquone x3 weeks after discharge (would place end date at 08/26/2021). Patient with immunocompromise status secondary to inadvertent prolonged course of p.o. prednisone. Continue atovaquone 750 mg p.o. twice daily (3) Rheumatoid arthritis: Plan: Patient was previously on steroids which have since been weaned down Continue methotrexate 50 mg p.o. q. weekly Continue folic acid 1 mg p.o. daily (4) CKD (chronic kidney disease), stage III: Plan: Stable (5) GERD (gastroesophageal reflux disease): Plan: Chronic. Continue Protonix 4 mg p.o. daily Pepcid 40 mg p.o. every morning Maalox as needed for heartburn (6) Obstructive sleep apnea: Plan: Chronic Continue CPAP nightly (7) Hypertension: Plan: With reports of borderline low blood pressures from [facility]. Blood pressures here have been low. Patient was recently taken off her antihypertensive agents Use amiodarone to 100 a day check echocardiogram Was previously on hydrochlorothiazide, lisinopril (8) Diabetes mellitus, type 2: Plan: Diet controlled. Last hemoglobin A1c = 5.7 on 06/04/2021. Blood glucose is acceptable. Hold metformin (9) Paroxysmal atrial fibrillation: Plan: Rate controlled, patient anticoagulated with rivaroxaban. Continue amiodarone 200 mg p.o. daily Continue rivaroxaban. Per pharmacy will redose to 15 mg daily for renal function Plan: Prophylaxispatient anticoagulation with rivaroxaban Codefull per discussion with patient, updated daughter at bedside for 112 Dispositionadmission to medical Admission and Anticipated Discharge Date Admission Date: August 17, 2021 Subjective pt state she feels much better but still with occasional abdominal pain, has reducible hernias, CT shows increased stool, has arthritic pain to shoulders and neck Review of Systems Review of Systems: Mild distress and fatigue no headache, no visual changes no speech or swallowing issues no chest pain, pressure or palpitations no shortness of breath, cough or wheezes central abdominal pain, no nausea or vomiting, + constipation no dysuria, hematuria or frequency b/l shoulder pain no back pain, CVA tenderness or radicular pain no bruising, bleeding or rashes no focal signs of weakness or numbness or altered sensation no complaints of anxiety or depression.. Physical Exam Physical Exam: The patient appeared well nourished and normally developed. She is moderately uncomfortable with abdominal pain and arthritic pain Vital signs as documented. Head exam is normocephalic atraumatic Neck is without JVD, thyromegaly, or carotid bruits. Lungs are clear to auscultation, no focal loss of breath sounds Cardiac exam, Rhythm is regular.. No murmurs, rubs or gallops. Abdominal exam reveals normal bowel sounds, soft visible hernia just to the right of the ventral side near her umbilicus Extremities are nonedematous and both pedal pulses are present Neurologic exam is alert and oriented, no focal loss of strength or sensation Skin is without bruises or rashes Psychologically is without concerns for anxiety or depression.. Results & Data Results & Data ([facility]) Vital Signs (Past 12 Hours) Vital Signs Temp Pulse Pulse Resp BP BP Pulse Ox 08/18/21 08:04 97.7 F 75 16 95/51 L 98 08/17/21 23:51 97.8 F 88 20 124/82 99 08/17/21 23:00 63 22 127/83 100 08/17/21 21:59 62 18 127/67 100 08/17/21 21:57 89 L 08/17/21 20:51 85 22 100 08/17/21 20:19 64 22 132/59 L 100 PG Care Time/CCT Total # of Minutes Spent Total Time Spent with Patient: Total time spent is greater than 50% in coordination of care (as documented) at patient's floor/unit and/or counseling patient: Coding Level of Care Code 19923 Subseq Hosp Care Lvl 2 Diagnoses Abdominal pain R10.84 Abdominal location: generalized Pneumocystis jiroveci pneumonia B59 Rheumatoid arthritis M06.9 CKD (chronic kidney disease), stage III N18.31 Chronic kidney disease stage 3 subtype: stage 3a (GFR 45-59) GERD (gastroesophageal reflux disease) K21.9 Esophagitis presence: without esophagitis Obstructive sleep apnea G47.33 Hypertension I10 Hypertension type: unspecified Diabetes mellitus, type 2 E11.22; N18.31 Chronic kidney disease stage: stage 3 (moderate) Chronic kidney disease stage 3 subtype: stage 3a (GFR 45-59) Diabetes mellitus complication detail: with chronic kidney disease Diabetes mellitus complication status: with kidney complications Diabetes mellitus long term care pharmacist insulin use: without half-way use Paroxysmal atrial fibrillation I48.0 (1) Diabetes mellitus, type 2 Chronic kidney disease stage: stage 3 (moderate) Chronic kidney disease stage 3 subtype: stage 3a (GFR 45-59) Diabetes mellitus complication detail: with chronic kidney disease Diabetes mellitus complication status: with kidney complications Diabetes mellitus long term care pharmacist insulin use: without half-way use Qualified Code(s): E11.22 - Type 2 diabetes mellitus with diabetic chronic kidney disease; N18.31 - Chronic kidney disease, stage 3a (2) CKD (chronic kidney disease), stage III Chronic kidney disease stage 3 subtype: stage 3a (GFR 45-59) Qualified Code(s): N18.31 - Chronic kidney disease, stage 3a (3) GERD (gastroesophageal reflux disease) Esophagitis presence: without esophagitis Qualified Code(s): K21.9 - Gastro- esophageal reflux disease without esophagitis (4) Abdominal pain Abdominal location: generalized Qualified Code(s): R10.84 - Generalized abdominal pain (5) Hypertension Hypertension type: unspecified Qualified Code(s): I10 - Essential (primary) hypertension
[2021-08-18] MEDS: RIVAROXABAN 15 MG TAB PO SCH (08:12)
[2021-08-18 08:45] LABS: Albumin Level 2.9 gm/dl (3.4-5.0); BUN Creatinine Ratio 17.4 (10-20); Bilirubin Direct 0.3 mg/dl (0-0.2); Bilirubin,Total 1.5 mg/dl (0.2-1.0); Calcium 8.8 mg/dl (8.5-10.1); Creatinine Clr Calc Pharmacy 33.9 ml/min; Est GFR (African American) 35.6 ml/min; Est GFR (Non-African American) 30.7 ml/min; Potassium 3.5 mmol/L (3.5-5.1); Total Protein 5.5 gm/dl (6.0-8.3)
[2021-08-18] MEDS: POLYETHYLENE (MIRALAX) 17 GM PACK PO SCH (08:48)
[2021-08-18] MEDS ORDERED: AMIODARONE 200 MG TAB PO SCH (09:00)
--- NOTE | 2021-08-18 09:31 | Ultrasound Report ---
US liver CLINICAL HISTORY: RUQ pain, nausea, elevated Tbili TECHNIQUE: Multiple real-time sonographic images of the right upper quadrant were obtained. Comparison: None available at the time of this dictation. FINDINGS: The liver is diffusely echogenic in appearance with poor ultrasound penetration, with normal contour, which is consistent with fatty infiltration. No focal mass lesions are seen. No intrahepatic rosalia amada dilatation is seen. Multiple gallstones are seen. The gallbladder wall measures 2 mm. A sonograp hic Cruz's sign was elicited by the senior product development manager. The common duct measures 0.36 cm in diameter at the level of the hepatic artery. The visualized portions of the pancreas appear normal. The right kidney is atrophic in appearance. No evidence of hydronephrosis or mass. No ascites or free fluid is seen in Garcia's pouch. IMPRESSION: 1. Positive sonographic Cruz's sign with multiple gallstones although without definite wall thicke anusha. Findings are concerning for acute cholecystitis. 2. Hepatic steatosis. ACT 112: Negative or not required by law. Electronically signed by: Srinivasan Sandoval M.D. 08/18/2021 9:29 AM
[2021-08-18] MEDS: DOCUSATE SODIUM 100 MG CAP PO PRN (12:41)
[2021-08-18] MEDS ORDERED: MELATONIN 3 MG TAB PO PRN (21:00)
[2021-08-18] MEDS ORDERED: SENNOSIDES 8.8 MG/5 ML UDC PO SCH (21:00)
[2021-08-18] MEDS: DICLOFENAC SOD 1% GEL 100 GM TUBE EXT SCH (21:36)
--- NOTE | 2021-08-19 06:01 | Electrocardiogram Report ---
Test Reason : Blood Pressure : / mmHG Vent. Rate : 066 BPM Atrial Rate : 065 BPM P-R Int : 000 ms QRS Dur : 070 ms QT Int : 000 ms P-R-T Axes : 000 -10 012 degrees QTc Int : 000 ms Poor data quality, interpretation may be adversely affected Sinus rhythm Nonspecific T wave abnormality Abnormal ECG When compared with ECG of 02-AUG-2021 05:08, Questionable change in QRS duration Confirmed by Noman Leon ([id number]) on 08/19/2021 6:01:24 AM Referred By: REFERRED SELF Confirmed By:Noman Leon
[2021-08-19] MEDS: FOLIC ACID 1 MG TAB PO SCH (08:43)
[2021-08-19] MEDS: FAMOTIDINE 40 MG TABLET PO SCH (08:43)
[2021-08-19] MEDS: POLYETHYLENE (MIRALAX) 17 GM PACK PO SCH (08:43)
[2021-08-19] MEDS: ATOVAQUONE 750 MG/5 ML UDC PO SCH ×2 (08:43→20:46)
[2021-08-19] MEDS: RIVAROXABAN 15 MG TAB PO SCH (08:43)
[2021-08-19] MEDS: PANTOprazole 40 MG TAB PO SCH (08:43)
[2021-08-19] MEDS: AMIODARONE 200 MG TAB PO SCH (09:32)
[2021-08-19] MEDS ORDERED: PIPERACILL/TAZOBAC CONSULT ACTIVE PRN (09:54)
--- NOTE | 2021-08-19 10:20 | Hospitalist Progress Note ---
Date of Service August 19, 2021 Assessment & Plan (1) Abdominal pain: Plan: 76-year-old female with multiple medical problems presenting with several days of progressive upper abdominal pain, postprandial with associated nausea belching. Abdomen is tender in the epigastric region as well as right upper quadrant. Labs significant for mild elevation of total bilirubin of 1.4. Differential to include biliary colic, gallbladder disease, gastritis, peptic ulcer, intestinal angina (patient with known celiac artery stenosis). Gallstones present on CT but no CT evidence of acute cholecystitis. Moderate stool burden noted on CT as well, daily senna and MiraLAX at this point time -u/s also concurs with concern for acute cholecystitis, starting Zosyn, consult general surgery, may eventually need cholecystectomy (2) Pneumocystis jiroveci pneumonia: Plan: Patient had episode of acute hypoxic respiratory failure during her last hospital stay. Her CT of the chest showed multifocal groundglass consolidations greatest at the lung bases. She had elevated Fungitell of greater than 500 and PGP PCR positive via BAL on 07/31/2021. She was evaluated by pulmonary and was treated with atovaquone (secondary to Bactrim infection). She is to continue atovaquone x3 weeks after discharge (would place end date at 08/26/2021). Patient with immunocompromise status secondary to inadvertent prolonged course of p.o. prednisone. Continue atovaquone 750 mg p.o. twice daily (3) Rheumatoid arthritis: Plan: Patient was previously on steroids which have since been weaned down -HOLD methotrexate in face of possible actue cholecystitis Continue folic acid 1 mg p.o. daily (4) CKD (chronic kidney disease), stage III: Plan: Stable (5) GERD (gastroesophageal reflux disease): Plan: Chronic. Continue Protonix 4 mg p.o. daily Pepcid 40 mg p.o. every morning Maalox as needed for heartburn (6) Obstructive sleep apnea: Plan: Chronic Continue CPAP nightly (7) Hypertension: Plan: With reports of borderline low blood pressures from [facility]. Blood pressures here have been low. Patient was recently taken off her antihypertensive agents. low bp possible with infection Use amiodarone to 100 a day check echocardiogram Was previously on hydrochlorothiazide, lisinopril (8) Diabetes mellitus, type 2: Plan: Diet controlled. Last hemoglobin A1c = 5.7 on 06/04/2021. Blood glucose is acceptable. Hold metformin (9) Paroxysmal atrial fibrillation: Plan: Rate controlled, patient anticoagulated with rivaroxaban. Continue amiodarone 200 mg p.o. daily Continue rivaroxaban. Per pharmacy will redose to 15 mg daily for renal function Plan: Prophylaxispatient anticoagulation with rivaroxaban Codefull per discussion with patient, updated daughter at bedside for 1122 Dispositionadmission to medical Admission and Anticipated Discharge Date Admission Date: August 17, 2021 Subjective pt state she is nauseated has persistent abdominal pain, has reducible hernias, CT shows concerns for cholecystitis, did have good cathatsis of stools Review of Systems Review of Systems: Mild distress and fatigue no headache, no visual changes no speech or swallowing issues no chest pain, pressure or palpitations no shortness of breath, cough or wheezes central abdominal pain, now nausea no vomiting, relived constipation no dysuria, hematuria or frequency b/l shoulder pain no back pain, CVA tenderness or radicular pain no bruising, bleeding or rashes no focal signs of weakness or numbness or altered sensation no complaints of anxiety or depression.. Physical Exam Physical Exam: The patient appeared well nourished and normally developed. She is moderately uncomfortable with abdominal pain and arthritic pain Vital signs as documented. Head exam is normocephalic atraumatic Neck is without JVD, thyromegaly, or carotid bruits. Lungs are clear to auscultation, no focal loss of breath sounds Cardiac exam, Rhythm is regular.. No murmurs, rubs or gallops. Abdominal exam reveals normal bowel sounds, soft, ruq pain Extremities are nonedematous and both pedal pulses are present Neurologic exam is alert and oriented, no focal loss of strength or sensation Skin is without bruises or rashes Psychologically is without concerns for anxiety or depression.. Results & Data Results & Data ([facility]) Vital Signs (Past 12 Hours) Vital Signs Temp Pulse Resp BP Pulse Ox 08/19/21 08:50 118/72 08/19/21 07:08 98.1 F 66 16 93/60 L 99 08/18/21 23:03 98.4 F 75 18 109/66 92 PG Care Time/CCT Total # of Minutes Spent Total Time Spent with Patient: Total time spent is greater than 50% in coordination of care (as documented) at patient's floor/unit and/or counseling patient: Coding Level of Care Code 85636 Subseq Hosp Care Lvl 3 Diagnoses Abdominal pain R10.84 Abdominal location: generalized Pneumocystis jiroveci pneumonia B59 Rheumatoid arthritis M06.9 CKD (chronic kidney disease), stage III N18.31 Chronic kidney disease stage 3 subtype: stage 3a (GFR 45-59) GERD (gastroesophageal reflux disease) K21.9 Esophagitis presence: without esophagitis Obstructive sleep apnea G47.33 Hypertension I10 Hypertension type: unspecified Diabetes mellitus, type 2 E11.22; N18.31 Chronic kidney disease stage: stage 3 (moderate) Chronic kidney disease stage 3 subtype: stage 3a (GFR 45-59) Diabetes mellitus complication detail: with chronic kidney disease Diabetes mellitus complication status: with kidney complications Diabetes mellitus halfway insulin use: without bed bug exterminator use Paroxysmal atrial fibrillation I48.0 (1) Diabetes mellitus, type 2 Chronic kidney disease stage: stage 3 (moderate) Chronic kidney disease stage 3 subtype: stage 3a (GFR 45-59) Diabetes mellitus complication detail: with chronic kidney disease Diabetes mellitus complication status: with kidney complications Diabetes mellitus halfway insulin use: without halfway use Qualified Code(s): E11.22 - Type 2 diabetes mellitus with diabetic chronic kidney disease; N18.31 - Chronic kidney disease, stage 3a (2) CKD (chronic kidney disease), stage III Chronic kidney disease stage 3 subtype: stage 3a (GFR 45-59) Qualified Code(s): N18.31 - Chronic kidney disease, stage 3a (3) GERD (gastroesophageal reflux disease) Esophagitis presence: without esophagitis Qualified Code(s): K21.9 - Gastro- esophageal reflux disease without esophagitis (4) Abdominal pain Abdominal location: generalized Qualified Code(s): R10.84 - Generalized abdominal pain (5) Hypertension Hypertension type: unspecified Qualified Code(s): I10 - Essential (primary) hypertension
[2021-08-19] MEDS: DOCUSATE SODIUM 100 MG CAP PO PRN (10:57)
[2021-08-19] MEDS ORDERED: PIPERACILLIN/TAZOBACTAM 3.375 GM in DEXTROSE 5% 100 ML IV ONE (11:00)
[2021-08-19 11:03] LABS: Hematocrit (blood only) 30.8 % (37-47); Hemoglobin 9.9 g/dL (12.0-16.0); Mean Corpuscular Hemoglobin 30.4 pg (25-34); Mean Corpuscular Hgb Conc 32.1 g/dL (32-36); Mean Corpuscular Volume 94.5 fL (80-100); Mean Platelet Volume 8.6 fL (7.4-10.4); Platelet Count 162 K/uL (130-400); RDW Coefficient of Variation 18.7 % (11.5-14.5); RDW Standard Deviation 64.7 fL (36.4-46.3); Red Blood Count 3.26 M/uL (4.2-5.4); White Blood Count 6.01 K/uL (4.8-10.8)
[2021-08-19] MEDS: ONDANSETRON INJ 2 MG/ML 2 ML VIAL IV PRN (11:12)
--- NOTE | 2021-08-19 11:33 | Surgery Consultation ---
Date of Consultation August 19, 2021 Assessment & Plan (1) Abdominal pain: Patient with sludge and stones in her gallbladder with symptoms of nausea and upper abdominal pain This obviously could be coming from her gallbladder and normally we would consider laparoscopic cholecystectomy I really do not believe the HIDA scan is going to help that much She is a poor candidate for surgery with her recent respiratory problems and other comorbidities Also adding to that prior abdominal surgery and possible mesh in place After discussion with the medical team will continue with medical management for now We will ask anesthesia to please see her in the event we may proceed with laparoscopic cholecystectomy In the next 24 to 48 hours History of Present Illness Attending Physician: London Renee MD History of Present Illness 76-year-old female who we have been asked to see for gallbladder disease She was admitted with upper abdominal pain nausea and belching She apparently does have some upper abdominal tenderness, on ultrasound she had what was felt to be a positive Cruz sign She does have sludge and stones in her gallbladder Ultrasound and CT scan did not show significant distention or evidence of severe acute cholecystitis Patient with recent respiratory failure and bilateral pneumonia discharged on 08/05/2021 Also history of atrial fibrillation on Xarelto diabetes hypertension chronic kidney disease Has abdominal hernias with possible mesh in place Allergies Allergy/AdvReac Type Severity Reaction Status Date / Time Iodinated Contrast Media Allergy Intermediate Foot rash, Verified 08/17/21 20:09 swelling Sulfa (Sulfonamide Allergy Mild Rash, Verified 08/17/21 20:09 Antibiotics) itching sulfamethoxazole Allergy Mild Rash, Verified 08/17/21 20:09 itching prednisone Allergy Unknown Unknown Verified 08/17/21 20:09 Home Medications Medication Instructions Recorded Confirmed Type calcium carbonate 600 mg-vitamin 1 tab PO QAM 01/25/20 08/17/21 History D3 10 mcg (400 unit) tablet (Calcium 600 + D(3)) potassium gluconate 595 mg (99 mg) 99 mg PO QAM 01/25/20 08/17/21 History tablet rivaroxaban 20 mg tablet (Xarelto) 20 mg PO DAILY #90 tab 05/16/21 08/17/21 Rx zinc gluconate 50 mg tablet 50 mg PO DAILY 06/04/21 08/17/21 History folic acid 1 mg tablet 1 mg PO DAILY #90 tab 06/05/21 08/17/21 Rx amiodarone 200 mg tablet 200 mg PO DAILY #90 tab 07/01/21 08/17/21 Rx methotrexate sodium 2.5 mg tablet 15 mg PO WK 07/23/21 08/17/21 History acetaminophen 325 mg tablet 650 mg PO Q6 PRN MDD 3g 08/17/21 08/17/21 History (Tylenol) acetaminophen 325 mg tablet 650 mg PO Q6 PRN MDD 3g 08/17/21 08/17/21 History (Tylenol) atovaquone 750 mg/5 mL oral 750 mg PO BID 08/17/21 08/17/21 History suspension cholecalciferol (vitamin D3) 10 10 mcg PO DAILY 08/17/21 08/17/21 History mcg (400 unit) capsule (Vitamin D3) levofloxacin 250 mg tablet 250 mg PO DAILY 08/17/21 08/17/21 History melatonin 3 mg tablet 3 mg PO HS 08/17/21 08/17/21 History pantoprazole 40 mg tablet,delayed 40 mg PO DAILY 08/17/21 08/17/21 History release promethazine 25 mg/mL injection 25 mg IM Q6H PRN 08/17/21 08/17/21 History solution (Phenergan) tramadol 50 mg tablet 50 mg PO Q6 PRN 08/17/21 08/17/21 History Patient History Medical History Abdominal pain, acute, bilateral lower quadrant Acute proctitis Chronic shoulder pain Pain started after [facility] > per patient, PCP started her on prednisone for this which she they have been trying to slowly taper off of Diabetes mellitus, type 2 NIDDM Elevated lactic acid level Glaucoma Hypertension Morbid obesity Paroxysmal atrial fibrillation on Xarelto PMR (polymyalgia rheumatica) Sleep apnea CPAP Surgical History Cyst Scalp cysts excision (12/12/18): Grade view 1, MAC#3, ETT 7.5 at [facility] H/O colonoscopy History of ankle surgery Right History of carpal tunnel release Right History of hernia repair Laparoscopic hernia x2 History of knee replacement procedure of right knee R/L History of laminectomy Dr. Styles History of left knee replacement + subsequent Left knee I&D poly exchange History of lumpectomy of left breast benign History of revision of total knee arthroplasty R/L History of surgical procedure on eye proper using laser History of tooth extraction Hx of hysterectomy Hx of left cataract extraction Hx of right cataract extraction Family History Sister Breast cancer Father Heart disease Other No family history of adverse response to anesthesia Denies family history of Ovarian cancer Prostate cancer Myocardial infarction Lung cancer Colorectal cancer Social History Smoking Status: Never smoker Age Started Using Tobacco: 5; Age Quit Using Tobacco: 25; packs per day: 1; Years Smoked: 24; Second Hand Exposure: No; Hx Alcohol Use: No Hx Substance Use: No Preferred Language: Azerbaijani Communication Ability: Effective Visual Impairment: Limited Hearing Ability: Normal Floater Operator Required: No Beliefs That Will Affect Care: None marital status: Current Living Situation: Rehab current occupational status: retired How many Children do You have: 5 Other Information That Helps Us Care for You: No Feels Safe at Home: Yes Safety Concerns: Feels Safe At This Time Childhood Exposure to Second-Hand Smoke: Yes caffeine: No during the past year weight has: decreased > 10 lbs Dental Care, Regularly: No Physical Activity Frequency: Does not Exercise Seatbelt Use: always Sunscreen Use: No Do you think of yourself as: straight/heterosexual Gender Identity: Female Assistive Devices: Walker Review of Systems Review of Systems: All systems reviewed & are unremarkable except as noted in HPI & below Physical Exam Constitutional: well nourished; no acute distress Eyes: + anicteric sclerae Respiratory: normal respiratory effort; no respiratory distress Cardiovascular: Rate/Rhythm: regular rate Gastrointestinal (Abdomen): Inspection/Auscultation: abdomen not distended Some mild upper abdominal discomfort to palpation Musculoskeletal: Head/Neck/Chest: head atraumatic Skin: no rashes, warm and dry Neurologic: awake Psychiatric: Orientation: alert Results & Data ([facility]) Vital Signs (Past 12 Hours) Vital Signs Temp Pulse Resp BP Pulse Ox 08/19/21 10:59 71 104/71 08/19/21 10:18 73 90/52 L 08/19/21 08:50 118/72 08/19/21 07:08 36.7 C 66 16 93/60 L 99 Laboratory Results I reviewed her laboratories Diagnostic Findings I reviewed her ultrasound and CT scan films PG Care Time/CCT Total # of Minutes Spent Total Time Spent with Patient: Total time spent is greater than 50% in coordination of care (as documented) at patient's floor/unit and/or counseling patient: Coding Level of Care Code 03024 Initial Inpt Care Lvl 3 Diagnoses Abdominal pain R10.9
[2021-08-19] MEDS ORDERED: PROMETHAZINE HCL 12.5 MG in SODIUM CHLORIDE 0.9% 50 ML IV STA (11:43)
[2021-08-19 11:50] LABS: Albumin Level 2.8 gm/dl (3.4-5.0); BUN Creatinine Ratio 15.9 (10-20); Bilirubin Direct 0.3 mg/dl (0-0.2); Bilirubin,Total 1.4 mg/dl (0.2-1.0); Calcium 8.7 mg/dl (8.5-10.1); Creatinine Clr Calc Pharmacy 37.6 ml/min; Est GFR (African American) 40.4 ml/min; Est GFR (Non-African American) 34.9 ml/min; Potassium 3.3 mmol/L (3.5-5.1); Total Protein 5.4 gm/dl (6.0-8.3)
[2021-08-19] MEDS: PIPERACILLIN/TAZOBACTAM 3.375 GM in DEXTROSE 5% 100 ML IV SCH ×2 (15:27→23:51)
[2021-08-19] MEDS ORDERED: POLYETHYLENE (MIRALAX) 17 GM PACK PO PRN (16:40)
--- NOTE | 2021-08-19 18:45 | XCELERA ---
[id number]
--- NOTE | 2021-08-19 19:39 | Anesthesiology Consultation ---
Date of Service August 19, 2021 Assessment & Plan (1) Encounter for pre-operative examination: Chart Review Chart Review: Acceptable Risk for Surgery and Patient NOT seen in Pre Admission Testing Consults Requested none History Surgery Operation Date: 08/20/21 08:15 Proposed Procedures p Laparoscopic Cholecystectomy - Pawan Gustafson MD, FACS Height/Weight Height: 5 ft 4 in Weight: 98.43 kg Allergies Allergy/AdvReac Type Severity Reaction Status Date / Time Iodinated Contrast Media Allergy Intermediate Foot rash, Verified 08/17/21 20:09 swelling Sulfa (Sulfonamide Allergy Mild Rash, Verified 08/17/21 20:09 Antibiotics) itching sulfamethoxazole Allergy Mild Rash, Verified 08/17/21 20:09 itching prednisone Allergy Unknown Unknown Verified 08/17/21 20:09 Medications Home Medications Medication Instructions Recorded Confirmed Last Taken calcium carbonate 600 mg-vitamin 1 tab PO QAM 01/25/20 08/17/21 07/23/21 D3 10 mcg (400 unit) tablet (Calcium 600 + D(3)) potassium gluconate 595 mg (99 mg) 99 mg PO QAM 01/25/20 08/17/21 07/23/21 tablet rivaroxaban 20 mg tablet (Xarelto) 20 mg PO DAILY #90 tab 05/16/21 08/17/21 07/23/21 zinc gluconate 50 mg tablet 50 mg PO DAILY 06/04/21 08/17/21 07/23/21 folic acid 1 mg tablet 1 mg PO DAILY #90 tab 06/05/21 08/17/21 07/23/21 amiodarone 200 mg tablet 200 mg PO DAILY #90 tab 07/01/21 08/17/21 07/23/21 methotrexate sodium 2.5 mg tablet 15 mg PO WK 07/23/21 08/17/21 07/17/21 acetaminophen 325 mg tablet 650 mg PO Q6 PRN MDD 3g 08/17/21 08/17/21 Unknown (Tylenol) acetaminophen 325 mg tablet 650 mg PO Q6 PRN MDD 3g 08/17/21 08/17/21 Unknown (Tylenol) atovaquone 750 mg/5 mL oral 750 mg PO BID 08/17/21 08/17/21 Unknown suspension cholecalciferol (vitamin D3) 10 10 mcg PO DAILY 08/17/21 08/17/21 Unknown mcg (400 unit) capsule (Vitamin D3) levofloxacin 250 mg tablet 250 mg PO DAILY 08/17/21 08/17/21 Unknown melatonin 3 mg tablet 3 mg PO HS 08/17/21 08/17/21 Unknown pantoprazole 40 mg tablet,delayed 40 mg PO DAILY 08/17/21 08/17/21 Unknown release promethazine 25 mg/mL injection 25 mg IM Q6H PRN 08/17/21 08/17/21 Unknown solution (Phenergan) tramadol 50 mg tablet 50 mg PO Q6 PRN 08/17/21 08/17/21 Unknown Active Medications Generic Name Dose Route Start Last Admin Trade Name Freq PRN Reason Stop Dose Admin Amiodarone HCl 100 mg 08/19/21 09:00 08/19/21 09:32 Amiodarone 200 Mg Tab PO 09/18/21 08:59 100 mg DAILY EMMANUEL Administration Atovaquone 750 mg 08/18/21 09:00 08/19/21 08:43 Atovaquone 750 Mg/5 Ml Udc PO 09/17/21 08:59 750 mg BID EMMANUEL Administration Diclofenac Sodium 4 gm 08/18/21 21:00 08/18/21 21:36 Diclofenac Sod 1% Gel 100 Gm Tube EXT 09/17/21 20:59 Not Given HS EMMANUEL Docusate Sodium 100 mg 08/17/21 23:49 08/19/21 10:57 Docusate Sodium 100 Mg Cap PO 09/16/21 23:48 100 mg BID PRN Administration Constipation Famotidine 40 mg 08/18/21 09:00 08/19/21 08:43 Famotidine 40 Mg Tablet PO 09/17/21 08:59 40 mg QAM EMMANUEL Administration Folic Acid 1 mg 08/18/21 09:00 08/19/21 08:43 Folic Acid 1 Mg Tab PO 09/17/21 08:59 1 mg DAILY EMMANUEL Administration Piperacillin Sod/Tazobactam 115 mls @ 28.75 mls/hr 08/19/21 16:00 08/19/21 15:27 Sod 3.375 gm/ Dextrose IV 08/29/21 15:59 28.8 mls/hr Q8H EMMANUEL Administration Protocol Ondansetron HCl 4 mg 08/17/21 23:49 08/19/21 11:12 Ondansetron Inj 2 Mg/Ml 2 Ml Vial IV 09/16/21 23:48 4 mg Q6H PRN Administration Nausea And Vomiting Pantoprazole Sodium 40 mg 08/18/21 09:00 08/19/21 08:43 Pantoprazole 40 Mg Tab PO 09/17/21 08:59 40 mg DAILY EMMANUEL Administration Rivaroxaban 15 mg 08/18/21 09:00 08/19/21 08:43 Rivaroxaban 15 Mg Tab PO 09/17/21 08:59 15 mg DAILY EMMANUEL Administration Past Medical History Medical History Abdominal pain, acute, bilateral lower quadrant Acute proctitis Anemia Celiac artery stenosis Chronic shoulder pain Pain started after CTR > per patient, PCP started her on prednisone for this which she they have been trying to slowly taper off of CKD (chronic kidney disease), stage III Diabetes mellitus, type 2 NIDDM Elevated lactic acid level Glaucoma Hypertension Morbid obesity Paroxysmal atrial fibrillation on Xarelto PMR (polymyalgia rheumatica) Rheumatoid arthritis Sleep apnea CPAP Past Family History Family History Sister Breast cancer Father Heart disease Other No family history of adverse response to anesthesia Denies family history of Ovarian cancer Prostate cancer Myocardial infarction Lung cancer Colorectal cancer Past Surgical History Surgical History Cyst Scalp cysts excision (12/12/18): Grade view 1, MAC#3, ETT 7.5 at [facility] H/O colonoscopy History of ankle surgery Right History of carpal tunnel release Right History of hernia repair Laparoscopic hernia x2 History of knee replacement procedure of right knee R/L History of laminectomy Dr. Styles History of left knee replacement + subsequent Left knee I&D poly exchange History of lumpectomy of left breast benign History of revision of total knee arthroplasty R/L History of surgical procedure on eye proper using laser History of tooth extraction Hx of hysterectomy Hx of left cataract extraction Hx of right cataract extraction Social History Smoking Status: Never smoker tobacco type: cigarettes Hx Alcohol Use: No Hx Substance Use: No substance use type: does not use Physical Exam Vital Signs Last Vital Signs Temp 36.7 C 08/19/21 13:59 Pulse 70 08/19/21 13:59 Resp 16 08/19/21 13:59 BP 103/65 08/19/21 13:59 Pulse Ox 96 04/12/22 13:59 Testing Laboratory Results 08/19/21 10:46 08/19/21 10:46 PT 13.1 Seconds (9.0-12.0) H 08/17/21 18:59 INR 1.2 (0.9-1.1) H 08/17/21 18:59 Urine Color Yellow 08/17/21 23:09 Urine Appearance Clear (Clear) 08/17/21 23:09 Urine pH 7.5 (4.5-7.5) 08/17/21 23:09 Ur Specific [place] 1.015 (1.000-1.030) 08/17/21 23:09 Urine Protein Trace (Negative) H 08/17/21 23:09 Urine Glucose (UA) Negative (Negative) 08/17/21 23:09 Urine Ketones Negative (Negative) 08/17/21 23:09 Urine Nitrite Negative (Negative) 08/17/21 23:09 Ur Leukocyte Esterase Trace (Negative) H 08/17/21 23:09 Urine WBC (Auto) 1-5 /hpf (0-5) 08/17/21 23:09 Urine RBC (Auto) 0-4 /hpf (0-4) 08/17/21 23:09 U Hyaline Cast (Auto) 10-30 /lpf (0-5) H 08/17/21 23:09 U Epithel Cells (Auto) >30 /lpf (0-5) H 08/17/21 23:09 Urine Bacteria (Auto) 1+ (Negative) H 08/17/21 23:09 08/17/21 23:09 Urine Culture - Final Urine,Clean Catch Three types of organisms present, all moderate counts. Repeat collection recommended. No further identifications or sensitivities to follow. Electrocardiogram Date: 08/17/21 DICTATED BY:Noman Leon MD Test Reason : Blood Pressure : / mmHG Vent. Rate : 066 BPM Atrial Rate : 065 BPM P-R Int : 000 ms QRS Dur : 070 ms QT Int : 000 ms P-R-T Axes : 000 -10 012 degrees QTc Int : 000 ms Poor data quality, interpretation may be adversely affected Sinus rhythm Nonspecific T wave abnormality Abnormal ECG When compared with ECG of 02-AUG-2021 05:08, Questionable change in QRS duration Confirmed by Noman Leon ([id number]) on 08/19/2021 6:01:24 AM Referred By: REFERRED SELF Confirmed By:Noman eLon Chest X-Ray Date: 08/17/21 XR chest 1V portable CLINICAL HISTORY: abd pain TECHNIQUE: Single frontal radiograph of the chest was obtained. Comparison: Comparison is made to chest radiograph 08/03/2021 FINDINGS: No lines and tubes are seen. Calcified aortic knob is seen. The lungs are clear. No evidence of pleural effusion or pneumothorax. Degenerative changes are seen in the skeleton. IMPRESSION: No acute chest disease. ACT 112: Negative or not required by law. Electronically signed by: Srinivasan Sandoval M.D. 08/18/2021 7:45 AM Dictated:08/18/21742 Transcribed: 08/18/21742 Echocardiogram Date: 08/19/21 EF: 60-65 LV Function: normal Other Findings: + LVH (mild concentric) Valvular Disease: + no significant valvular disease
[2021-08-19] MEDS: DICLOFENAC SOD 1% GEL 100 GM TUBE EXT SCH (20:46)
--- NOTE | 2021-08-20 06:20 | Surgery Progress Note ---
Date of Service August 20, 2021 Assessment & Plan (1) Abdominal pain: Plan: Patient has multiple high risk factors for surgery unless absolutely necessary I do not believe she has severe acute cholecystitis I feel we should hold off on surgery and try to advance her diet We will order full liquids for the patient Admission and Anticipated Discharge Date Admission Date: August 17, 2021 Subjective Patient's vital signs have been stable She did very well overnight-receiving no pain medication Has had no emesis Review of Systems Review of Systems: All systems reviewed & are unremarkable except as noted in HPI & below Physical Exam Physical Exam: Patient resting comfortably in bed at the present time Constitutional: well nourished; no acute distress Eyes: + anicteric sclerae Respiratory: normal respiratory effort; no respiratory distress Cardiovascular: Rate/Rhythm: regular rate Gastrointestinal (Abdomen): Inspection/Auscultation: abdomen not distended Some mild upper abdominal discomfort to palpation Musculoskeletal: Head/Neck/Chest: head atraumatic Skin: no rashes, warm and dry Neurologic: awake Psychiatric: Orientation: alert Results & Data ([facility]) Vital Signs (Past 12 Hours) Vital Signs Temp Pulse Resp BP Pulse Ox 08/19/21 22:20 37 C 68 22 112/64 97 PG Care Time/CCT Total # of Minutes Spent Total Time Spent with Patient: Total time spent is greater than 50% in coordination of care (as documented) at patient's floor/unit and/or counseling patient: Coding Level of Care Code 36195 Inpt Consult Level 3 Diagnoses Abdominal pain R10.9
[2021-08-20] MEDS ORDERED: LIDOCAINE 2% 2 ML VIAL/AMP(20MG/ML) INFIL ONE (07:56)
[2021-08-20] MEDS ORDERED: MIDAZOLAM HCL 1 MG/ML 2ML VIAL ONE (07:56)
[2021-08-20] MEDS ORDERED: ROCURONIUM BROMIDE 10 MG/ML 5 ML VIAL IV ONE (07:56)
[2021-08-20] MEDS ORDERED: PROPOFOL IV EMULSION 10 MG/ML 20 ML VIAL IV ONE (07:56)
[2021-08-20] MEDS ORDERED: fentaNYL citrate 100 MCG/2 ML VIAL ONE (07:56)
[2021-08-20] MEDS: AMIODARONE 200 MG TAB PO SCH (09:27)
[2021-08-20] MEDS: FAMOTIDINE 40 MG TABLET PO SCH ×2 (09:28→20:46)
[2021-08-20] MEDS: ATOVAQUONE 750 MG/5 ML UDC PO SCH ×2 (09:28→20:45)
[2021-08-20] MEDS: FOLIC ACID 1 MG TAB PO SCH (09:29)
[2021-08-20] MEDS: RIVAROXABAN 15 MG TAB PO SCH (09:29)
[2021-08-20] MEDS: PANTOprazole 40 MG TAB PO SCH ×2 (09:29→20:46)
[2021-08-20] MEDS: PIPERACILLIN/TAZOBACTAM 3.375 GM in DEXTROSE 5% 100 ML IV SCH ×2 (11:19→17:27)
--- NOTE | 2021-08-20 12:46 | Hospitalist Progress Note ---
Date of Service August 20, 2021 Assessment & Plan (1) Abdominal pain: Plan: 76-year-old female with multiple medical problems presenting with several days of progressive upper abdominal pain, postprandial with associated nausea belching. Abdomen is tender in the epigastric region as well as right upper quadrant. Labs significant for mild elevation of total bilirubin of 1.4. Differential to include biliary colic, gallbladder disease, gastritis, peptic ulcer, intestinal angina (patient with known celiac artery stenosis). Gallstones present on CT but no CT evidence of acute cholecystitis. At this point, really unable to differentiate chronic cholecystitis versus gastritis/dyspepsia/ulcer as the cause of her pain. Moderate stool burden noted on CT as well, daily senna and MiraLAX at this point time -u/s also concurs with concern for acute cholecystitis given positive Cruz sign; however, there is no pericholecystic fluid and no gallbladder wall thickening. Empirically started on Zosyn. Is afebrile without leukocytosis. TB was slightly elevated at 1.4. No lab data today. Will update tomorrow. Otherwise AST/ALT and lipase normal. -General surgery consulted. Unfortunately, patient recently suffered respiratory failure and just discharged from the hospital 08/05. She remains on Mepron for treatment of her P STARR pneumonia. She is not an ideal surgical candidate. Recommendations from general surgery are for initiation of a low-fat diet. May need gallbladder out at a later date if she can tolerate oral intake. -Patient does have associated excessive eructation and a sensation of globus. She was on long-term prednisone for quite some time. In addition, she has been on multiple antibiotics including Zosyn, Invanz, Flagyl, and now Mepron for her pneumonia. She takes Xarelto. Her symptoms may very well be gastritis/PUD. She denies melena or hematochezia. Her H&H have been low but fairly stable and baseline for her. Prior to this hospitalization, she was on Protonix. --I have since increased her Protonix to twice a day --Have added Pepcid 20 mg twice a day along with Carafate 4 times daily. Again not a great surgical candidate (would benefit from EGD to help differentiate) --Maintain antireflux lifestyle (2) Pneumocystis jiroveci pneumonia: Plan: Patient had episode of acute hypoxic respiratory failure during her last hospital stay. Her CT of the chest showed multifocal groundglass consolidations greatest at the lung bases. She had elevated Fungitell of greater than 500 and PGP PCR positive via BAL on 07/31/2021. She was evaluated by pulmonary and was treated with atovaquone (secondary to Bactrim allergy). She is to continue atovaquone x3 weeks after discharge (would place end date at 08/26/2021). Patient with immunocompromise status secondary to inadvertent prolonged course of p.o. prednisone. Continue atovaquone 750 mg p.o. twice daily (3) Rheumatoid arthritis: Plan: Patient was previously on steroids which have since been weaned down -HOLD methotrexate in face of possible actue cholecystitis Continue folic acid 1 mg p.o. daily (4) CKD (chronic kidney disease), stage III: Plan: Stable (5) GERD (gastroesophageal reflux disease): Plan: Chronic. Continue Protonix 4 mg p.o. but this has since been increased to twice daily. -In addition, she has been placed on max H2 gary (Pepcid 20 mg twice daily) in addition to Carafate as would benefit from EGD but not great surgical candidate (6) Obstructive sleep apnea: Plan: Chronic Continue CPAP nightly (7) Hypertension: Plan: With reports of borderline low blood pressures from [facility]. Blood pressures here have been low. Patient was recently taken off her antihypertensive agents. low bp possible with infection Use amiodarone to 100 a day. TTE obtained showing EF of 60 to 65% with no RWMA. Was previously on hydrochlorothiazide, lisinopril but these have been on hold. BP currently 104/71 (8) Diabetes mellitus, type 2: Plan: Diet controlled. Last hemoglobin A1c = 5.7 on 06/04/2021. Blood glucose is acceptable. Hold metformin (9) Paroxysmal atrial fibrillation: Plan: Rate controlled, patient anticoagulated with rivaroxaban. Continue amiodarone 200 mg p.o. daily Continue rivaroxaban which has been reduced to 15 mg daily for CKD (10) Wound of sacral region: Plan: Stage II. Mostly due to mild skin breakdown -Wound nurse following. -Patient receiving Aquacel Ag and secured with Optifoam. -Change every 3 days and as needed. -Reduce friction to buttocks when moving in bed. in addition-- Unstageable pressure ulcer of medial gluteal cleft, POA Plan: Prophylaxispatient anticoagulation with rivaroxaban Codefull per discussion with patient, updated Family updated at bedside on 08/20 Admission and Anticipated Discharge Date Admission Date: August 17, 2021 Subjective Patient seen on daily rounds today. Hospitalized 08/17 with abdominal discomfort. Recently hospitalized 07/23 through 08/05. At that time, she presented to the hospital with abdominal pain and diarrhea. During that hospital stay she subsequently went into respiratory failure and was found to have PJP pneumonia via bronchial lavage with sputum culture. She has been on Mepron given her Bactrim allergy. At that time, she had been on long-term prednisone for chronic pain (presumed to be PMR). Has since been tapered off of prednisone and is doing well from a pain perspective but has had intermittent abdominal pain since. Pain is described as a vague discomfort/pressure mostly in the epigastric region. Occasionally it is in the right upper quadrant but also in the left upper quadrant. This made worse by eating. She has excessive eructation and a sensation of globus. Still with frequent loose stools. CT of the abdomen and pelvis showed cholelithiasis without obvious cholecystitis. Her white blood cell count was normal at 7.3. She was afebrile and hemodynamically stable. She did have a slightly elevated bilirubin of 1.4 but her AST/ALT were normal. Lipase was normal at 29. A right upper quadrant ultrasound showed gallstones with a positive Cruz sign but no pericholecystic fluid and no gallbladder wall thickening. Patient has empirically been on Zosyn. General surgery has been following and does not feel that her symptoms are related to severe acute cholecystitis. Given her recent respiratory failure due to PJP pneumonia, surgery is a risk. Recommendations are for initiation of full liquids/low-fat diet and if patient can tolerate oral intake, proceeding with potential discharge and follow-up cholecystectomy once more medically stable. Review of Systems Review of Systems: All systems reviewed and are unremarkable except as noted in HPI and below Denies fevers, chills, headache, nasal congestion, sore throat, cough, chest pain, shortness of breath, palpitations, orthopnea, PND, constipation, dysuria, hematuria, frequency, back pain, joint pain or swelling, easy bruising or bl eeding, skin lesions or rashes. Physical Exam Physical Exam: General: Resting comfortably in her hospital bed. NAD. HEENT: Head is AT/NC. Buccal mucosa is moist and pink Neck: No JVD. Negative hepatojugular reflex Cardiac: Irregular rhythm with controlled ventricular rate. 2/6 REBECCA Lungs: CTA without W/R/R Abdomen: Normoactive X4. Abdomen is soft. Mild scar tissue superficially in the epigastric region. She does have some tenderness in the epigastric region. No tenderness in the right upper quadrant. Negative Cruz sign. Mild tenderness in the left upper quadrant. Extremities: + Adiposity without true pitting edema Neuro: A&O X4. Cranial nerves II through XII are grossly intact. No focal neuro deficits Skin: Mild skin breakdown in the sacrum without periwound erythema or drainage Psych: Appropriate affect. Pleasant and cooperative Results & Data Results & Data ([facility]) Vital Signs (Past 12 Hours) Vital Signs Temp Pulse Resp BP Pulse Ox 08/20/21 11:29 36.6 C 63 14 108/54 L 98 08/20/21 09:18 36.5 C 68 14 115/72 98 Laboratory Results No lab data today PG Care Time/CCT Total # of Minutes Spent Total Time Spent with Patient: Total time spent is greater than 50% in coordination of care (as documented) at patient's floor/unit and/or counseling patient: Coding Level of Care Code 40056 Subseq Hosp Care Lvl 2 Diagnoses Abdominal pain R10.84 Abdominal location: generalized Pneumocystis jiroveci pneumonia B59 Rheumatoid arthritis M06.9 CKD (chronic kidney disease), stage III N18.31 Chronic kidney disease stage 3 subtype: stage 3a (GFR 45-59) GERD (gastroesophageal reflux disease) K21.9 Esophagitis presence: without esophagitis Obstructive sleep apnea G47.33 Hypertension I10 Hypertension type: unspecified Diabetes mellitus, type 2 E11.22; N18.31 Chronic kidney disease stage: stage 3 (moderate) Chronic kidney disease stage 3 subtype: stage 3a (GFR 45-59) Diabetes mellitus complication detail: with chronic kidney disease Diabetes mellitus complication status: with kidney complications Diabetes mellitus assisted insulin use: without assisted use Paroxysmal atrial fibrillation I48.0 Wound of sacral region S31.000A (1) Diabetes mellitus, type 2 Chronic kidney disease stage: stage 3 (moderate) Chronic kidney disease stage 3 subtype: stage 3a (GFR 45-59) Diabetes mellitus complication detail: with chronic kidney disease Diabetes mellitus complication status: with kidney complications 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 assembler insulin use: without assisted use Qualified Code(s): E11.22 - Type 2 diabetes mellitus with diabetic chronic kidney disease; N18.31 - Chronic kidney disease, stage 3a (2) CKD (chronic kidney disease), stage III Chronic kidney disease stage 3 subtype: stage 3a (GFR 45-59) Qualified Code( s): N18.31 - Chronic kidney disease, stage 3a (3) GERD (gastroesophageal reflux disease) Esophagitis presence: without esophagitis Qualified Code(s): K21.9 - Gastro- esophageal reflux disease without esophagitis (4) Abdominal pain Abdominal location: generalized Qualified Code(s): R10.84 - Generalized abdominal pain (5) Hypertension Hypertension type: unspecified Qualified Code(s): I10 - Essential (primary) hypertension
[2021-08-20] MEDS: SUCRALFATE 1 GM/10 ML UDC PO SCH ×3 (14:00→20:46)
[2021-08-20] MEDS: DICLOFENAC SOD 1% GEL 100 GM TUBE EXT SCH (20:46)
[2021-08-20] MEDS: ACETAMINOPHEN 325 MG TAB PO PRN (21:25)
[2021-08-21] MEDS: PIPERACILLIN/TAZOBACTAM 3.375 GM in DEXTROSE 5% 100 ML IV SCH ×2 (00:06→09:00)
[2021-08-21 06:22] LABS: Hematocrit (blood only) 27.7 % (37-47); Hemoglobin 8.9 g/dL (12.0-16.0); Mean Corpuscular Hemoglobin 30.2 pg (25-34); Mean Corpuscular Hgb Conc 32.1 g/dL (32-36); Mean Corpuscular Volume 93.9 fL (80-100); Mean Platelet Volume 8.5 fL (7.4-10.4); Platelet Count 159 K/uL (130-400); RDW Coefficient of Variation 18.1 % (11.5-14.5); RDW Standard Deviation 62.3 fL (36.4-46.3); Red Blood Count 2.95 M/uL (4.2-5.4); White Blood Count 4.18 K/uL (4.8-10.8)
[2021-08-21 06:54] LABS: BUN Creatinine Ratio 10.5 (10-20); Calcium 7.9 mg/dl (8.5-10.1); Creatinine Clr Calc Pharmacy 35.6 ml/min; Est GFR (African American) 37.9 ml/min; Est GFR (Non-African American) 32.7 ml/min; Magnesium 1.7 mg/dl (1.7-2.4)
--- NOTE | 2021-08-21 07:26 | Surgery Progress Note ---
Date of Service August 21, 2021 Assessment & Plan (1) Abdominal pain: Plan: Patient does not seem to have worsening acute cholecystitis Her abdomen is soft We will advance her to a low fiber diet Try to avoid narcotics if possible Check a C. difficile with continued loose bowel movements Trying to avoid surgery unless absolutely necessary She does seem much improved from 48 hours ago Admission and Anticipated Discharge Date Admission Date: August 17, 2021 Subjective Patient seems to be tolerating full liquids but does have loose bowel movements Some intermittent mid abdominal pain Does not seem to have significant worsening upper abdominal pain Had some right shoulder pain She is awake and alert this morning in no distress She is not having significant nausea and belching as she did previously Review of Systems Review of Systems: All systems reviewed & are unremarkable except as noted in HPI & below Physical Exam Physical Exam: General: Resting comfortably in her hospital bed. NAD. HEENT: Head is AT/NC. Buccal mucosa is moist and pink Neck: No JVD. Negative hepatojugular reflex Cardiac: Irregular rhythm with controlled ventricular rate. 2/6 REBECCA Lungs: CTA without W/R/R Abdomen: Normoactive X4. Abdomen is soft. Mild scar tissue superficially in the epigastric region. She does have some tenderness in the epigastric region. No tenderness in the right upper quadrant. Negative Cruz sign. Mild tenderness in the left upper quadrant. Extremities: + Adiposity without true pitting edema Neuro: A&O X4. Cranial nerves II through XII are grossly intact. No focal neuro deficits Skin: Mild skin breakdown in the sacrum without periwound erythema or drainage Psych: Appropriate affect. Pleasant and cooperative Constitutional: Patient is awake and alert She is in no distress Abdomen is very soft with minimal tenderness Results & Data ([facility]) Vital Signs (Past 12 Hours) Vital Signs Temp Pulse Resp BP Pulse Ox 08/20/21 23:58 36.8 C 90 18 108/69 97 PG Care Time/CCT Total # of Minutes Spent Total Time Spent with Patient: Total time spent is greater than 50% in coordination of care (as documented) at patient's floor/unit and/or counseling patient: Coding Level of Care Code 97139 Inpt Consult Level 3 Diagnoses Abdominal pain R10.9
[2021-08-21 09:00] LABS: Albumin Level 2.4 gm/dl (3.4-5.0); Bilirubin Direct 0.2 mg/dl (0-0.2); Bilirubin,Total 0.9 mg/dl (0.2-1.0); Phosphorus 2.6 mg/dl (2.5-4.9); Total Protein 4.8 gm/dl (6.0-8.3)
[2021-08-21] MEDS: ATOVAQUONE 750 MG/5 ML UDC PO SCH ×2 (09:01→20:35)
[2021-08-21] MEDS: FAMOTIDINE 40 MG TABLET PO SCH ×2 (09:01→20:36)
[2021-08-21] MEDS: SUCRALFATE 1 GM/10 ML UDC PO SCH ×4 (09:02→20:35)
[2021-08-21] MEDS: RIVAROXABAN 15 MG TAB PO SCH (09:02)
[2021-08-21] MEDS: FOLIC ACID 1 MG TAB PO SCH (09:02)
[2021-08-21] MEDS: PANTOprazole 40 MG TAB PO SCH ×2 (09:02→20:36)
[2021-08-21] MEDS: AMIODARONE 200 MG TAB PO SCH (09:40)
[2021-08-21] MEDS ORDERED: metHOTREXate sodium 2.5 MG TAB PO SCH (12:00)
--- NOTE | 2021-08-21 15:16 | Hospitalist Progress Note ---
Date of Service August 21, 2021 Assessment & Plan (1) Abdominal pain: Plan: 76-year-old female with multiple medical problems presenting with several days of progressive upper abdominal pain, postprandial with associated nausea belching. Abdomen is tender in the epigastric region as well as right upper quadrant. Labs significant for mild elevation of total bilirubin of 1.4. Differential to include biliary colic, gallbladder disease, gastritis, peptic ulcer, intestinal angina (patient with known celiac artery stenosis). Gallstones present on CT but no CT evidence of acute cholecystitis. At this point, really unable to differentiate chronic cholecystitis versus gastritis/dyspepsia/ulcer as the cause of her pain. Moderate stool burden noted on CT-treated with MiraLAX and Colace (which are now as needed). Now with antibiotic associated diarrhea for which lactobacillus probiotics will be added -u/s also concurs with concern for acute cholecystitis given positive Cruz sign; however, there is no pericholecystic fluid and no gallbladder wall thicken ing. Empirically started on Zosyntransition to oral Augmentin X 10 days total. Has remained afebrile without leukocytosis. TB was slightly elevated at 1.4. With normal AST/ALT/lipase. Total bilirubin has since normalized. -General surgery consulted. Unfortunately, patient recently suffered respiratory failure and just discharged from the hospital 08/05. She remains on Mepron for treatment of her P STARR pneumonia. She is not an ideal surgical candidate. Recommendations from general surgery are for initiation of a low-fat diet. May need gallbladder out at a later date if she can tolerate oral intake. -Patient does have associated excessive eructation and a sensation of globus. She was on long-term prednisone for quite some time. In addition, she has been on multiple antibiotics including Zosyn, Invanz, Flagyl, and now Mepron for her pneumonia. She takes Xarelto. Her symptoms may very well be gastritis/PUD. She denies melena or hematochezia. Her hemoglobin seems to be dropping slightly. Rectal exam donefecal occult blood pending. Prior to this hospitalization, she was on Protonix. --I have since increased her Protonix to twice a day --Have added Pepcid 20 mg twice a day along with Carafate 4 times daily. Again not a great surgical candidate (would benefit from EGD to help differentiate) --Maintain antireflux lifestyle -Thus far, patient seems to be showing favorable response. Again, unable to differentiate if this is biliary colic/chronic cholecystitis or gastritis. May be a combination of both. At any rate, she is not a surgical candidate. We will continue to advance diet to low-fat and convert IV Zosyn to oral Augmentin. Continue max PPI/H2 gary and Carafate. Given her dropping hemoglobin, will hold Xarelto for now. If patient able to tolerate oral intake and her H&H remained stable, can likely proceed with discharge tomorrow and consider cholecystectomy at a later date if pain continues to persist. (2) Pneumocystis jiroveci pneumonia: Plan: Patient had episode of acute hypoxic respiratory failure during her last hospital stay. Her CT of the chest showed multifocal groundglass consolidations greatest at the lung bases. She had elevated Fungitell of greater than 500 and PGP PCR positive via BAL on 07/31/2021. She was evaluated by pulmonary and was treated with atovaquone (secondary to Bactrim allergy). She is to continue atovaquone x3 weeks after discharge (would place end date at 08/26/2021). Patient with immunocompromise status secondary to inadvertent prolonged course of p.o. prednisone. Continue atovaquone 750 mg p.o. twice daily (3) Rheumatoid arthritis: Plan: Patient was previously on steroids which have since been weaned down -HOLD methotrexate in face of possible acute cholecystitis Continue folic acid 1 mg p.o. daily (4) CKD (chronic kidney disease), stage III: Plan: Stable (5) GERD (gastroesophageal reflux disease): Plan: Chronic. Continue Protonix 40 mg p.o. but this has since been increased to twice daily. -In addition, she has been placed on max H2 gary (Pepcid 20 mg twice daily) along with Carafate as would benefit from EGD but not great surgical candidate -Would recommend antireflux diet/lifestyle (6) Anemia: Plan: -With review of old records, patient seems to have chronic anemia with a baseline hemoglobin of 10-11 -Her underlying anemia is likely multifactorial. Suspect has anemia of chronic disease given her underlying history of rheumatoid arthritis and CKD. The acute component may be blood loss from gastritis as outlined above, could be slightly dilutional as her fluid balance is +4 L during this hospitalization, and from [id number] hospitalizations with frequent lab draws. -Hemoglobin has now dropped slightly to 8.9. She is asymptomatic (denies chest pain, shortness of breath, palpitations, fatigue) and is otherwise hemodynamically stable -Denies melena or hematochezia. Rectal exam performedfecal occult blood ordered and pending -Has never had a colonoscopy/EGD to her avail. Not ideal candidate for these unless absolutely necessary given her recent respiratory failure and PGP pneumonia -Again, hospitalized with abdominal pain and there is high suspicion for acute gastritis. Recently placed on max dose H2 gary/PPI and Carafate -We will hold Xarelto for now. Would provide short-term drug holiday and watch H&H closely (7) Obstructive sleep apnea: Plan: Chronic Continue CPAP nightly (8) Hypertension: Plan: With reports of borderline low blood pressures from [facility]. Blood pressures here have been low. Patient was recently taken off her antihypertensive agents. low bp possible with infection Use amiodarone to 100 a day. TTE obtained showing EF of 60 to 65% with no RWMA. Was previously on hydrochlorothiazide, lisinopril but these have been on hold. BP currently 104/71 (9) Diabetes mellitus, type 2: Plan: Diet controlled. Last hemoglobin A1c = 5.7 on 06/04/2021. Blood glucose is acceptable. Hold metformin (10) Paroxysmal atrial fibrillation: Plan: Rate controlled, patient anticoagulated with rivaroxaban. Continue amiodarone 200 mg p.o. daily Has been on Xarelto up until this point. Given her mild drop in her H&H, will hold. May need a slight drug holiday (11) Wound of sacral region: Plan: Stage II. Mostly due to mild skin breakdown -Wound nurse following. -Patient receiving Aquacel Ag and secured with Optifoam. -Change every 3 days and as needed. -Reduce friction to buttocks when moving in bed. in addition-- Unstageable pressure ulcer of medial gluteal cleft, POA Plan: Slight drop in H&H today. Watch closely. Further advance diet. Transition IV Zosyn to oral Augmentin. PT/OT have been on board and are recommending rehab. [facility] when medically stable. Patient will likely be ready for discharge tomorrow (08/22) pending she is tolerating advancement in her diet and her hemoglobin remains stable--Case management updated Admission and Anticipated Discharge Date Admission Date: August 17, 2021 Subjective Patient seen on daily rounds today. She has been tolerating a low-fat/full liquid diet without abdominal pain, nausea or vomiting. Hemoglobin has dropped it is currently 8.9. Was 11.7 upon presentation into the emergency department. Denies melena or hematochezia. Does take chronic Xarelto for her underlying atrial fibrillation. Again, was on chronic prednisone in addition to and has recently been started on PPI/H2 gary and Carafate for clinical suspicion of gastritis as the cause for abdominal pain. Not ideal surgical candidate for EGD given recent respiratory failure and PJP pneumonia. With review of old records, baseline hemoglobin seems to be between 10 & 11. Fluid balance during this hospitalization is +4 L Review of Systems Review of Systems: All systems reviewed and are unremarkable except as noted in HPI and below Denies fevers, chills, headache, nasal congestion, sore throat, cough, chest pain, shortness of breath, palpitations, orthopnea, PND, abdominal pain, nausea, vomiting, diarrhea, constipation, dysuria, hematuria, frequency, back pain, joint pain or swelling, easy bruising or bleeding, skin lesions or rashes. Physical Exam Physical Exam: General: Resting comfortably in her hospital. NAD. HEENT: Vocal hoarseness noted. Head is AT/NC. Buccal mucosa is moist and pink Neck: No JVD. Negative hepatojugular reflex Cardiac: Irregularly rhythm with controlled ventricular rate. Lungs: CTA without W/R/R Abdomen: Normoactive X4. Abdomen soft. No tenderness today in the upper quadrants or epigastrium. Rectal exam performed and sent for fecal occult bloodpending Extremities: + Adiposity without true pitting edema Neuro: A&O X4. Cranial nerves II through XII are grossly intact. No focal neuro deficits Skin: Small amount of breakdown on the sacrum not assessed today. Wound nurse following. Psych: Appropriate affect. Pleasant and cooperative Results & Data Results & Data ([facility]) Vital Signs (Past 12 Hours) Vital Signs Temp Pulse Resp BP Pulse Ox 08/21/21 08:27 36.4 C L 80 18 96/65 L 98 PG Care Time/CCT Total # of Minutes Spent Total Time Spent with Patient: Total time spent is greater than 50% in coordination of care (as documented) at patient's floor/unit and/or counseling patient: Coding Level of Care Code 21593 Subseq Hosp Care Lvl 3 Diagnoses Abdominal pain R10.84 Abdominal location: generalized Pneumocystis jiroveci pneumonia B59 Rheumatoid arthritis M06.9 CKD (chronic kidney disease), stage III N18.31 Chronic kidney disease stage 3 subtype: stage 3a (GFR 45-59) GERD (gastroesophageal reflux disease) K21.9 Esophagitis presence: without esophagitis Obstructive sleep apnea G47.33 Hypertension I10 Hypertension type: unspecified Diabetes mellitus, type 2 E11.22; N18.31 Diabetes mellitus predatory animal exterminator insulin use: without group home use Diabetes mellitus complication status: with kidney complications Diabetes mellitus complication detail: with chronic kidney disease Chronic kidney disease stage: stage 3 (moderate) Chronic kidney disease stage 3 subtype: stage 3a (GFR 45-59) Paroxysmal atrial fibrillation I48.0 Wound of sacral region S31.000A Anemia D64.9 (1) Abdominal pain Abdominal location: generalized Qualified Code(s): R10.84 - Generalized abdominal pain (2) CKD (chronic kidney disease), stage III Chronic kidney disease stage 3 subtype: stage 3a (GFR 45-59) Qualified Code(s): N18.31 - Chronic kidney disease, stage 3a (3) GERD (gastroesophageal reflux disease) Esophagitis presence: without esophagitis Qualified Code(s): K21.9 - Gastro- esophageal reflux disease without esophagitis (4) Hypertension Hypertension type: unspecified Qualified Code(s): I10 - Essential (primary) hypertension (5) Diabetes mellitus, type 2 Diabetes mellitus group home insulin use: without predatory animal exterminator use Diabetes mellitus complication status: with kidney complications Diabetes mellitus complication detail: with chronic kidney disease Chronic kidney disease stage: stage 3 (moderate) Chronic kidney disease stage 3 subtype: stage 3a (GFR 45-59) Qualified Code(s): E11.22 - Type 2 diabetes mellitus with diabetic chronic kidney disease; N18.31 - Chronic kidney disease, stage 3a
[2021-08-21 15:33] LABS: Hematocrit (blood only) 29.1 % (37-47); Hemoglobin 9.5 g/dL (12.0-16.0); Reticulocyte % 0.9 % (0.5-2.0); Reticulocytes # 0.03 10^6/uL (0.02-0.10)
[2021-08-21] MEDS: POTASSIUM CHLORIDE CRTAB 20 MEQ TABCR PO SCH ×2 (15:52→20:38)
[2021-08-21] MEDS: AMOXICILLIN/CLAVULANATE 875 MG TAB PO SCH (15:53)
[2021-08-21 16:21] LABS: Ferritin 859.5 ng/ml (8-388)
[2021-08-21] MEDS: ACETAMINOPHEN 325 MG TAB PO PRN (20:35)
[2021-08-21] MEDS: DICLOFENAC SOD 1% GEL 100 GM TUBE EXT SCH (20:36)
[2021-08-22 05:23] LABS: Basophils # (auto) 0.01 K/uL (0-0.2); Basophils % (auto) 0.3 %; Eosinophils # (auto) 0.19 K/uL (0-0.5); Eosinophils % (auto) 5.4 %; Hematocrit (blood only) 27.7 % (37-47); Hemoglobin 9.1 g/dL (12.0-16.0); Immature Granulocytes # (auto) 0.06 K/uL (0.00-0.02); Immature Granulocytes % (auto) 1.7 %; Lymphocytes # (auto) 1.07 K/uL (1.2-3.4); Lymphocytes % (auto) 30.4 %; Mean Corpuscular Hemoglobin 30.6 pg (25-34); Mean Corpuscular Hgb Conc 32.9 g/dL (32-36); Mean Corpuscular Volume 93.3 fL (80-100); Mean Platelet Volume 8.3 fL (7.4-10.4); Monocytes # (auto) 0.35 K/uL (0.11-0.59); Monocytes % (auto) 9.9 %; Neutrophils # (auto) 1.84 K/uL (1.4-6.5); Neutrophils % (auto) 52.3 %; Platelet Count 137 K/uL (130-400); RDW Coefficient of Variation 18.4 % (11.5-14.5); RDW Standard Deviation 62.1 fL (36.4-46.3); Red Blood Count 2.97 M/uL (4.2-5.4); White Blood Count 3.52 K/uL (4.8-10.8)
[2021-08-22 05:48] LABS: BUN Creatinine Ratio 8.7 (10-20); Calcium 7.9 mg/dl (8.5-10.1); Creatinine Clr Calc Pharmacy 36.4 ml/min; Est GFR (African American) 38.8 ml/min; Est GFR (Non-African American) 33.5 ml/min; Potassium 3.7 mmol/L (3.5-5.1)
[2021-08-22] MEDS ORDERED: ADVANCED PROBIOTIC 1250 MG CAPSULE PO SCH (09:00)
--- NOTE | 2021-08-22 09:00 | Surgery Progress Note ---
Date of Service August 22, 2021 Assessment & Plan (1) Abdominal pain: Plan: Patient does not show evidence of worsening acute cholecystitis May have an element of chronic cholecystitis No surgical intervention planned Discharge to rehab when okay with medical team Admission and Anticipated Discharge Date Admission Date: August 17, 2021 Subjective NoSlept pretty well last night Complaint of abdominal pain Seems to be tolerating her diet Review of Systems Review of Systems: All systems reviewed & are unremarkable except as noted in HPI & below Physical Exam Physical Exam: General: Resting comfortably in her hospital bed. NAD. HEENT: Head is AT/NC. Buccal mucosa is moist and pink Neck: No JVD. Negative hepatojugular reflex Cardiac: Irregular rhythm with controlled ventricular rate. 2/6 REBECCA Lungs: CTA without W/R/R Abdomen: Normoactive X4. Abdomen is soft. Mild scar tissue superficially in the epigastric region. She does have some tenderness in the epigastric region. No tenderness in the right upper quadrant. Negative Cruz sign. Mild tenderness in the left upper quadrant. Extremities: + Adiposity without true pitting edema Neuro: A&O X4. Cranial nerves II through XII are grossly intact. No focal neuro deficits Skin: Mild skin breakdown in the sacrum without periwound erythema or drainage Psych: Appropriate affect. Pleasant and cooperative Constitutional: Patient is awake and alert She is in no distress Abdomen is very soft with minimal tenderness Results & Data ([facility]) Vital Signs (Past 12 Hours) Vital Signs Temp Pulse Resp BP Pulse Ox 08/22/21 07:15 36.7 C 96 H 16 93/58 L 98 08/21/21 23:51 36.9 C 88 16 100/66 97 PG Care Time/CCT Total # of Minutes Spent Total Time Spent with Patient: Total time spent is greater than 50% in coordination of care (as documented) at patient's floor/unit and/or counseling patient: Coding Level of Care Code 01914 Inpt Consult Level 2 Diagnoses Abdominal pain R10.9
[2021-08-22] MEDS: PANTOprazole 40 MG TAB PO SCH (09:33)
[2021-08-22] MEDS: AMIODARONE 200 MG TAB PO SCH (09:33)
[2021-08-22] MEDS: FAMOTIDINE 40 MG TABLET PO SCH (09:33)
[2021-08-22] MEDS: FOLIC ACID 1 MG TAB PO SCH (09:34)
[2021-08-22] MEDS: AMOXICILLIN/CLAVULANATE 875 MG TAB PO SCH ×2 (09:34→16:33)
[2021-08-22] MEDS: ATOVAQUONE 750 MG/5 ML UDC PO SCH (09:35)
[2021-08-22] MEDS: SUCRALFATE 1 GM/10 ML UDC PO SCH ×3 (09:35→16:35)
[2021-08-22] MEDS ORDERED: CYANOCOBALAMIN 1000 MCG/ML VIAL IM SCH (09:45)
--- NOTE | 2021-08-22 14:16 | Discharge Summary ---
Date of Service August 22, 2021 Admission HPI Per Admitting Provider Cecilia Salazar is a 76-year-old female with history of diabetes, hypertension, rheumatoid arthritis, paroxysmal atrial fibrillation on rivaroxaban anticoagulation presenting with abdominal pain. Patient was admitted to [facility] from 07/23/21 - 08/05/21 after presenting with alternating diarrhea and constipation as well as abdominal pain. She was found to have proctocolitis and was treated with Zosyn, Flagyl and ertapenem. Patient had an episode of acute hypoxic respiratory failure secondary to PJP pneumonia. she was treated with atovaquone. [facility] Patient returns today with several complaints. Daughter is at bedside and assists with history. Reports the patient's blood pressure has been low over the last several days. Systolics in the 90s and diastolics in the 40s. Patient reports feeling dizziness with these blood pressures. Her blood pressure medications have recently been discontinued. Additionally, the patient reports persistent upper abdominal pain which has been going on for the last week. Pain typically begins in the epigastric and right upper quadrant then radiates bandlike across the upper abdomen. The pain is sharp in nature and is associated with nausea. No radiation through to the back but occasionally radiates to the right shoulder. Over the last week the pain was fairly consistent with acute worsening after meals. Today the pain was severe all day which prompted her to come to the ER. Additionally, patient has been hiccuping and belching quite a bit. She had 2 episodes of nonbloody/nonbilious vomiting this morning. Patient reports decreased appetite and poor oral intake over the past several days secondary to discomfort. She denies abdominal distention. Last bowel movement was today with no blood or mucus present. No additional complaints. In the ER patient is afebrile, hemodynamically stable. ER course: Normal saline, morphine, Zofran Principal Diagnosis 1. Abdominal pain -- uncertain etiology, DDx chronic cholecystitis, gastritis, dyspepsia, gastric ulcer 2. PJP -- currently on therapy which is to conclude on 08/26 Discharge Exam GENERAL: 76 yo Well-developed, well-nourished elderly wf. NAD. LUNGS: Clear to auscultation bilaterally. No W/R/R. CARDIOVASCULAR: Regular rate and rhythm. ABDOMEN: Soft, non-tender and non-distended. BS normal x 4 quad. EXTREMITIES: No edema. Non-tender. Peripheral pulses +2/4. NEUROLOGIC: A&O x3. PSYCHIATRIC: Cooperative. Appropriate mood and affect. SKIN: Warm, dry, intact. No rashes or lesions. Discharge Data Allergies Allergy/AdvReac Type Severity Reaction Status Date / Time Iodinated Contrast Media Allergy Intermediate Foot rash, Verified 08/17/21 20:09 swelling Sulfa (Sulfonamide Allergy Mild Rash, Verified 08/17/21 20:09 Antibiotics) itching sulfamethoxazole Allergy Mild Rash, Verified 08/17/21 20:09 itching prednisone Allergy Unknown Unknown Verified 08/17/21 20:09 Consultations 08/17/21 21:11 ED Decision to Admit Stat 08/19/21 09:56 Consult General Surgery Routine 08/19/21 11:25 Consult Anesthesiology Routine Ordered Studies Abdomen/Pelvis CT 08/17/21 18:28 CT SCAN OF THE ABDOMEN AND PELVIS WITHOUT IV CONTRAST CLINICAL HISTORY: Generalized abdominal pain. COMPARISON STUDY: Abdominal CT dated 07/23/2021. TECHNIQUE: CT scan of the abdomen and pelvis is performed from the lung bases to the proximal femora. Images are reviewed in the axial, sagittal, and coronal planes. IV contrast was not administered for this examination. Note that the examination was performed in suboptimal fashion without oral and IV contrast. There is motion artifact, as well as streak artifact from the arms which could not be elevated above the abdomen. A dose lowering technique was utilized adhering to the principles of ALARA. CT DOSE: 1117.60 mGy.cm FINDINGS: Lung bases: The heart is normal in size and without pericardial effusion. Scarring/atelectasis is noted at both lung bases. There is no airspace consolidation typical for pneumonia or pleural effusion. Scattered calcified granulomas are observed. Liver: The unenhanced liver is normal in size, contour, and attenuation. There is no intrahepatic biliary ductal dilatation. Gallbladder: The gallbladder is filled with hyperdense sludge and gallstones. There is no CT evidence of acute cholecystitis. Spleen: Normal in size and attenuation. Pancreas: The unenhanced pancreas is atrophic and grossly unremarkable. Adrenal glands: Unremarkable. Kidneys: The unenhanced kidneys are atrophic and without hydronephrosis. Renal sinus cysts are seen bilaterally. There are no renal calculi identified. There is no evidence of contour deforming renal mass lesion. Abdominal vasculature: The abdominal aorta is normal in course and caliber noting advanced atherosclerotic calcification. Bowel: There is moderate colonic fecal retention. No bowel obstruction is identified. The appendix is not visualized. Peritoneum: There is no intraperitoneal free air or abdominal ascites. There is evidence of previous ventral hernia repair in the abdomen and pelvis. Lymphadenopathy: None. Pelvic viscera: The bladder is normal as visualized. The uterus is surgically absent. No adnexal lesion is seen. Skeletal structures: The skeletal structures are osteopenic. There are bilateral pars defects at L5 with 12 mm anterolisthesis at L5-S1. Moderate lumbosacral spondylosis is observed. Right hemilaminectomy change is suggested in the lumbar spine. No lytic or blastic lesions are seen. IMPRESSION: 1. Suboptimal examination without oral and IV contrast. There is also streak and motion artifact. 2. There are no acute infectious or inflammatory findings in the abdomen or pelvis. 3. Cholelithiasis with no CT evidence of acute cholecystitis. 4. Moderate colonic fecal retention. 5. Additional findings as above. ACT 112: Negative or not required by law. Electronically signed by: Chas Medellin M.D. 08/17/2021 7:25 PM Chest X-Ray 08/17/21 19:59 XR chest 1V portable CLINICAL HISTORY: abd pain TECHNIQUE: Single frontal radiograph of the chest was obtained. Comparison: Comparison is made to chest radiograph 08/03/2021 FINDINGS: No lines and tubes are seen. Calcified aortic knob is seen. The lungs are clear. No evidence of pleural effusion or pneumothorax. Degenerative changes are seen in the skeleton. IMPRESSION: No acute chest disease. ACT 112: Negative or not required by law. Electronically signed by: Srinivasan Sandoval M.D. 08/18/2021 7:45 AM Liver Ultrasound 08/17/21 23:49 US liver CLINICAL HISTORY: RUQ pain, nausea, elevated Tbili TECHNIQUE: Multiple real-time sonographic images of the right upper quadrant were obtained. Comparison: None available at the time of this dictation. FINDINGS: The liver is diffusely echogenic in appearance with poor ultrasound penetration, with normal contour, which is consistent with fatty infiltration. No focal mass lesions are seen. No intrahepatic ductal dilatation is seen. Multiple gallstones are seen. The gallbladder wall measures 2 mm. A sonographic Cruz's sign was elicited by the senior production manager. The common duct measures 0.36 cm in diameter at the level of the hepatic artery. The visualized portions of the pancreas appear normal. The right kidney is atrophic in appearance. No evidence of hydronephrosis or mass. No ascites or free fluid is seen in Garcia's pouch. IMPRESSION: 1. Positive sonographic Cruz's sign with multiple gallstones although without definite wall thickening. Findings are concerning for acute cholecystitis. 2. Hepatic steatosis. ACT 112: Negative or not required by law. Electronically signed by: Srinivasan Sandoval M.D. 08/18/2021 9:29 AM Hospital Course (1) Abdominal pain: 76-year-old female with multiple medical problems presenting with several days of progressive upper abdominal pain, postprandial with associated nausea belching. Abdomen is tender in the epigastric region as well as right upper quadrant. Labs significant for mild elevation of total bilirubin of 1.4. Differential to include biliary colic, gallbladder disease, gastritis, peptic ulcer, intestinal angina (patient with known celiac artery stenosis). Gallstones present on CT but no CT evidence of acute cholecystitis. At this point, really unable to differentiate chronic cholecystitis versus gastritis/dyspepsia/ulcer as the cause of her pain. Moderate stool burden noted on CT-treated with MiraLAX and Colace (which are now as needed). Now with antibiotic associated diarrhea for which lactobacillus probiotics will be added -u/s also concurs with concern for acute cholecystitis given positive Cruz sign; however, there is no pericholecystic fluid and no gallbladder wall thickening. Empirically started on Zosyntransition to oral Augmentin X 10 days total. Has remained afebrile without leukocytosis. TB was slightly elevated at 1.4. With normal AST/ALT/lipase. Total bilirubin has since normalized. -General surgery consulted. Unfortunately, patient recently suffered respiratory failure and just discharged from the hospital 08/05. She remains on Mepron for treatment of her P STARR pneumonia. She is not an ideal surgical candidate. Recommendations from general surgery are for initiation of a low-fat diet. May need gallbladder out at a later date if she can tolerate oral intake. -Patient does have associated excessive eructation and a sensation of globus. She was on long-term prednisone for quite some time. In addition, she has been on multiple antibiotics including Zosyn, Invanz, Flagyl, and now Mepron for her pneumonia. She takes Xarelto. Her symptoms may very well be gastritis/PUD. She denies melena or hematochezia. Her hemoglobin seems to be dropping slightly. Rectal exam donefecal occult blood pending. Prior to this hospitalization, she was on Protonix. --I have since increased her Protonix to twice a day --Have added Pepcid 20 mg twice a day along with Carafate 4 times daily. Again not a great surgical candidate (would benefit from EGD to help differentiate) --Maintain antireflux lifestyle -Thus far, patient seems to be showing favorable response. Again, unable to differentiate if this is biliary colic/chronic cholecystitis or gastritis. May be a combination of both. At any rate, she is not a surgical candidate. Diet advanced to low-fat and IV Zosyn converted to oral Augmentin on 08/22. Continue max PPI/H2 gary and Carafate. Given her dropping hemoglobin, Xarelto was held. Stool was heme tested which was negative for blood. If pain persists, may need to consider cholecystectomy at a later date. (2) Pneumocystis jiroveci pneumonia: Patient had episode of acute hypoxic respiratory failure during her last hospital stay. Her CT of the chest showed multifocal groundglass consolidations greatest at the lung bases. She had elevated Fungitell of greater than 500 and PGP PCR positive via BAL on 07/31/2021. She was evaluated by pulmonary and was treated with atovaquone (secondary to Bactrim allergy). She is to continue atovaquone x3 weeks after discharge (would place end date at 08/26/2021). Patient with immunocompromise status secondary to inadvertent prolonged course of p.o. prednisone. Continue atovaquone 750 mg p.o. twice daily (3) Rheumatoid arthritis: Patient was previously on steroids which have since been weaned down -Held methotrexate in face of possible acute cholecystitis--however, unclear if this is chronic or acute, can resume MTX weekly dosing upon d/c Continue folic acid 1 mg p.o. daily (4) CKD (chronic kidney disease), stage III: Stable (5) GERD (gastroesophageal reflux disease): Chronic. Continue Protonix 40 mg p.o. but this has since been increased to twice daily. -In addition, she has been placed on max H2 gary (Pepcid 20 mg twice daily) along with Carafate as would benefit from EGD but not great surgical candidate -Would recommend antireflux diet/lifestyle (6) Anemia: -With review of old records, patient seems to have chronic anemia with a baseline hemoglobin of 10-11 -Her underlying anemia is likely multifactorial. Suspect has anemia of chronic disease given her underlying history of rheumatoid arthritis and CKD. The acute component may be blood loss from gastritis as outlined above, could be slightly dilutional as her fluid balance is +4 L during this hospitalization, and from [id number] hospitalizations with frequent lab draws. -Hemoglobin has now dropped slightly to 8.9. She is asymptomatic (denies chest pain, shortness of breath, palpitations, fatigue) and is otherwise hemodynamically stable -Denies melena or hematochezia. Rectal exam performedfecal occult blood ordered and pending -Has never had a colonoscopy/EGD. Not ideal candidate for these unless absolutely necessary given her recent respiratory failure and PJP pneumonia -Again, hospitalized with abdominal pain and there is high suspicion for acute gastritis. Recently placed on max dose H2 gary/PPI and Carafate -Xarelto held due to slight dip in H&H, pt has overall remained stable and asy mptomatic. Heme tested which was negative. Will resume Xarelto upon d/c. Can continue to follow H&H at [facility]. (7) Obstructive sleep apnea: Chronic Continue CPAP nightly (8) Hypertension: With reports of borderline low blood pressures from [facility]. Blood pressures here have been low. Patient was recently taken off her antihypertensive agents. low bp possible with infection Use amiodarone to 100 a day. TTE obtained showing EF of 60 to 65% with no RWMA. Was previously on hydrochlorothiazide, lisinopril but these have been on hold. BP currently 104/71 (9) Diabetes mellitus, type 2: Diet controlled. Last hemoglobin A1c = 5.7 on 06/04/2021. Blood glucose is acceptable. Hold metformin (10) Paroxysmal atrial fibrillation: Rate controlled, patient anticoagulated with rivaroxaban. Continue amiodarone dose reduced to 100 mg p.o. daily due to marginal BP Has been on Xarelto up until this point. Given her mild drop in her H&H, this was placed on hold but no evidence of bleeding and stool was heme negative. Can resume upon d/c and H&H can be monitored closely at rehab. (11) Wound of sacral region: Stage II. Mostly due to mild skin breakdown -Wound nurse following. -Patient receiving Aquacel Ag and secured with Optifoam. -Change every 3 days and as needed. -Reduce friction to buttocks when moving in bed. in addition-- Unstageable pressure ulcer of medial gluteal cleft, POA At this time, pt is medically and hemodynamically stable for discharge. She has been transitioned to oral Augmentin and will require 6 more days after today to complete a 10 day course. I was called to the bedside by RN this afternoon due to the daughter wishing to speak with me. Pt was sitting up in bedside chair having dry heaves. I was told that she hate a plate of mashed potatoes for lunch. Prior to that, she was tolerating diet without issue. I did have RN medicate with her a dose of Zofran. Pt advised to follow a low fat and low fiber diet. She also needs to keep heavy carbs (such as mashed potatoes) to a minimum. I suspect that the heaviness of the food is what triggered her pain/nausea. I have placed referral for her to follow up with general surgery. If she continues to have pain and nausea, surgery may not be able to be avoided or another option to consider may be a percutaneous cholecystostomy tube (which would need to be done at a place with IR) since she is not considered an ideal surgical candidate. I did discuss this with the daughter who verbalized understanding. I also reiterated that it is not entirely sure if this is the sole problem, it could also be gastritis and/or an ulcer. Without direct visualization with endoscopy, it is not certain if this could also be a factor. Will convey to [facility] medicine team. Attempt to manage conservatively through diet, PPI/H2, Carafate, and course of antibiotics. Plan d/w Dr. Armstrong who also saw and evaluated this patient prior to discharge and is in agreement with the aforementioned. Total Time Total Time Spent Total Time Spent (In Minutes): >30 minutes Discharge Plan Discharge Items Patient Disposition: Transfer Inpatient Rehab Fac Reason For Visit: ABDOMINAL PAIN Discharge Diagnosis: Abdominal pain--possibly due to malfunctioning gallbladder versus possible gastric ulcer or gastritis Activity: As commented below Activity Comment: with assist as tolerated Non-emergency contact: Primary Care Provider and Surgeon Call non-emergency contact if: you have any medication questions, your symptoms worsen and your pain is worsening Follow-up/Referrals: Dennis Alvarez MD [Primary Care Provider] - Pawan Gustafson MD, FACS [Physician] - (2 weeks) Diet: Carb Consistent or DM2, Low Fiber, Low Fat and Low Sodium (2gm) Addtl Attending Provider Instructions: You were hospitalized due to abdominal pain. Some of your tests indicated that your gallbladder could be contributing to your pain. Subsequently, you were started on antibiotics on 08/19 to cover a possible chronically infected gallbladder. However, due to your other medical problems, surgery to remove the gallbladder is not recommended at this time. We would advise continued course of antibiotics (Augmentin x 6 more days) and follow up with general surgery as an outpatient in order to determine if having your gallbladder removed at a later date is an option. It is not certain if you may have some inflammation in the lining of your s tomach or possibly also an ulcer that could be contributing to your pain also. For this reason, we have started you on medications to help suppress and neutralize gastric acid (Carafate and Pepcid). This will help to calm down any inflammation that could occurring. Without having direct visualization of the esophagus and stomach, it is unknown whether this is actually occurring. Could consider outpatient referral to GI so that an upper endoscopy could be performed at a later date when your other medical problems have stabilized if you continue to have issues. Your Protonix has also been increased from once a day to twice daily. You were noted to have a wound on your sacrum. During your hospitalization, wound care nurse has seen you and recommended the following local wound care to help heal this area: Cleanse with saline and cover with Aquacel AG and secure with Optifoam. Change every 3 days and as needed. Turn at least every 2 hours to offload pressure. Keep heels off bed surface--utilize waffle boots. Reduce friction to buttocks with moving in bed. You are to complete the course of antibiotics for the Pneumocystis jiroveci pneumonia: Atovaquone 750mg BID which is to conclude on 08/26/21. At this time, you can resume your once weekly Methotrexate as prescribed. Your Vitamin B12 level was noted to be profoundly low. So you have been started on Cyanocobalamin injections to treat this. You are to receive 1000mcg IM x6 more days, then receive 1000mcg injections weekly x 4 weeks, then either transition to once monthly maintenance injections or can switch to oral supplementation by your primary care provider. Your Amiodarone dose has been reduced from 200mg down to 100mg daily. Will continue the 100mg dose upon discharge. Your Xarelto has been held due to slightly worsening blood count which was unclear if this was related to possible blood loss through your GI tract. However, a test was done to check for blood in your stool which was negative. At this point, you can resume your daily Xarelto and the team at [facility] can continue to monitor your blood count and make adjustments in your anticoagulation therapy if warranted. You will be closely monitored at [facility] by the healthcare team. You will also be receiving aggressive rehab with PT and OT personnel. We recommend that you follow up with your primary healthcare provider upon discharge from [facility]. Pending Studies at Discharge: No Stand-Alone Forms: My [facility] Skilled Items Patient informed of condition?: Yes DNR: No Discharge Level of Care: Acute rehab Communicable Disease: No Discharge Prognosis: Improving Lines: None Urinary Catheter: No Medications and DC Order Prescriptions: New sucralfate 100 mg/mL Suspension 1 g PO QID 30 Days Qty: 1200 RF: 0 famotidine 40 mg Tablet 40 mg PO BID Qty: 60 RF: 0 docusate sodium 100 mg Capsule 100 mg PO BID Qty: 60 RF: 0 Advanced Probiotic 625 mg (10 billion cell) Capsule 2 cap PO DAILY Qty: 60 RF: 0 amoxicillin-pot clavulanate 875-125 mg tablet 1 tab PO BID Qty: 13 RF: 0 Continued Xarelto 20 mg tablet 20 mg PO DAILY Qty: 90 RF: 3 folic acid 1 mg tablet 1 mg PO DAILY Qty: 90 RF: 3 zinc gluconate 50 mg tablet 50 mg PO DAILY RF: 0 calcium carbonate-vitamin D3 [Calcium 600 + D(3)] 600 mg(1,500mg) -400 unit Tablet 1 tab PO QAM RF: 0 potassium gluconate 595 mg (99 mg) Tablet 99 mg PO QAM RF: 0 methotrexate sodium 2.5 mg tablet 15 mg PO WK RF: 0 tramadol 50 mg tablet 50 mg PO Q6 PRN (Reason: Pain moderate to severe) RF: 0 acetaminophen [Tylenol] 325 mg Tablet 650 mg PO Q6 MDD 3g PRN (Reason: pain 1-10) RF: 0 acetaminophen [Tylenol] 325 mg Tablet 650 mg PO Q6 MDD 3g PRN (Reason: temp>100) RF: 0 cholecalciferol (vitamin D3) [Vitamin D3] 10 mcg (400 unit) Capsule 10 mcg PO DAILY RF: 0 melatonin 3 mg Tablet 3 mg PO HS RF: 0 promethazine [Phenergan] 25 mg/mL Solution 25 mg IM Q6H PRN (Reason: nausea/vomiting) RF: 0 atovaquone 750 mg/5 mL Suspension 750 mg PO BID RF: 0 Changed amiodarone 200 mg tablet 100 mg PO DAILY Qty: 90 RF: 3 pantoprazole 40 mg Tablet,Delayed Release (Dr/Ec) 40 mg PO BID Qty: 0 RF: 0 Discontinued levofloxacin 250 mg Tablet 250 mg PO DAILY RF: 0 Discharge Orders: Discharge Order (Routine); Ordered 08/22/21 Ordered By: Radha Julian Admission Data Admit Date/Time: 08/17/21 22:34 Attending Provider: Gregory Armstrong Admit Provider: Elizabeth Kramer Primary Care Provider: Dennis Alvarez Other Providers: Pawan Gustafson ; Jay Cherry Other Interventions: Discharge Summary Assessment (RN) Last Done: 08/22/21 16:39 Supervising Physician Co-Signing Physician Notes I personally saw and examined the patient. I verified all childers points and agree with Radha Julian PA-C with the following exceptions and/or additions: None Coding Level of Care Code D/C DAY MANAGEMENT >30 MINS Diagnoses Abdominal pain R10.84 Abdominal location: generalized Pneumocystis jiroveci pneumonia B59 Rheumatoid arthritis M06.9 CKD (chronic kidney disease), stage III N18.31 Chronic kidney disease stage 3 subtype: stage 3a (GFR 45-59) GERD (gastroesophageal reflux disease) K21.9 Esophagitis presence: without esophagitis Anemia D64.9 Obstructive sleep apnea G47.33 Hypertension I10 Hypertension type: unspecified Diabetes mellitus, type 2 E11.22; N18.31 Chronic kidney disease stage: stage 3 (moderate) Chronic kidney disease stage 3 subtype: stage 3a (GFR 45-59) Diabetes mellitus complication detail: with chronic kidney disease Diabetes mellitus complication status: with kidney complications Diabetes mellitus shelter insulin use: without shelter use Paroxysmal atrial fibrillation I48.0 Wound of sacral region S31.000A
[2021-08-22] MEDS: ONDANSETRON INJ 2 MG/ML 2 ML VIAL IV PRN (15:35)
--- NOTE | 2021-08-29 09:49 | Coding Query ---
CODING QUERY To promote full compliance with coding requirements relating to patient care, provider participation is requested in all cases of wrapper stitcher uncertainty. Please assist us with the question(s) below: Coding Question(s): There is documentation in the record of Pneumocystis Jiroveci Pneumonia with, "Pneumocystis jiroveci pneumonia: Patient had episode of acute hypoxic respiratory failure during her last hospital stay. Her CT of the chest showed multifocal groundglass consolidations greatest at the lung bases. She had elevated Fungitell of greater than 500 and PGP PCR positive via BAL on 07/31/2021. She was evaluated by pulmonary and was treated with atovaquone (secondary to Bactrim allergy). She is to continue atovaquone x3 weeks after discharge (would place end date at 08/26/2021). Patient with immunocompromise status secondary to inadvertent prolonged course of p.o. prednisone. Continue atovaquone 750 mg p.o. twice daily", and the Discharge Summary currently documents, under the Principal Diagnosis area, "2. PJP -- currently on therapy which is to conclude on 08/26". Please clarify below, in your clinical opinion, regarding Pneumocystis Jiroveci Pneumonia. (X) Patient was treated and/or monitored for active/acute Pneumocystis Jiroveci Pneumonia during this admission ( ) Patient was treated and/or monitored for History only of Pneumocystis Jiroveci Pneumonia during this admission ( ) Other: Please Specify Physician's Response(s): Thank you Mei Allen Principal Diagnosis: "that condition established after study, to be chiefly responsible for occasioning the admission of the patient to the hospital for care." Co-Existing Principal Diagnosis: "when two or more diagnoses equally meet the criteria for principal diagnosis as determined by the circumstances of admission, diagnostic work up, and/or therapy provided, and the Alphabetic Index, Tabular List, or another coding guideline does not provide sequencing direction, any one of the diagnoses may be sequenced first." "When the physician has documented what appears to be a current diagnosis in the body of the record, but has not included the diagnosis in the final diagnostic statement, the physician should be asked whether the diagnosis should be added." (Source [facility]oding [facility] 2 QTR90. p3-4) JAZLYND
== END 2021-08-22 16:58 | DRG 444 ==
LOC: ED 18:00 → 3W 22:34 → SUATTDRO 22:34 → 3W 23:19

== ENCOUNTER 2021-12-02 09:49 | Inpatient (IN) ==
[2021-12-02] MEDS ORDERED: SODIUM CHLORIDE 0.9% 250 ML IV ONE (10:10)
[2021-12-02] MEDS ORDERED: ONDANSETRON INJ 2 MG/ML 2 ML VIAL IV STA (10:10)
[2021-12-02] MEDS ORDERED: MoRPHine SULFATE 2 MG/ML CARP IV STA ×2 (10:10→13:38)
--- NOTE | 2021-12-02 10:15 | Emergency Department Note ---
History of Present Illness General Chief complaint: Leg Injury/Pain Stated complaint: fall 2wks ago- pain right leg Time Seen by Provider: 12/02/21 09:56 Source: patient and family (Daughter Who is at the bedside) Mode of arrival: wheelchair Limitations: no limitations History of Present Illness Maximum Pain Intensity: 10 This patient is a 76-year-old female who fell about 3 weeks ago she lost her balance at [employer] and fell over her walker. She landed on her side. They thought she was okay but she started having pain in her back radiating down her leg and its similar to previous sciatica she did have back surgery a year and a half ago by Dr. Styles and felt similarly to this. Tylenol helps ice was helping it hurts when she moves. No chest pain shortness of breath or abdominal pain no pain in her feet or numbness or weakness distally. Home Medications Medication Instructions Recorded Confirmed Type calcium carbonate 600 mg-vitamin 1 tab PO QAM 01/25/20 12/02/21 History D3 10 mcg (400 unit) tablet (Calcium 600 + D(3)) potassium gluconate 595 mg (99 mg) 99 mg PO QAM 01/25/20 12/02/21 History tablet folic acid 1 mg tablet 1 mg PO DAILY #90 tabs 06/05/21 12/02/21 Rx amiodarone 200 mg tablet 100 mg PO DAILY #90 tabs 08/22/21 12/02/21 Rx pantoprazole 40 mg tablet,delayed 40 mg PO BID #0 tabs 08/22/21 12/02/21 Rx release hydrochlorothiazide 25 mg tablet 25 mg PO DAILY 10/02/21 12/02/21 History lidocaine 5 % topical patch 1 patch topical DAILY PRN Pain 10/02/21 12/02/21 History metformin 500 mg tablet 500 mg PO DAILY 10/02/21 12/02/21 History ondansetron HCl 4 mg tablet 4 mg PO Q8H PRN nausea and 10/02/21 12/02/21 Rx vomiting #30 tabs famotidine 40 mg tablet 40 mg PO BID #180 tabs 10/27/21 12/02/21 Rx lisinopril 10 mg tablet 10 mg PO DAILY #30 tabs 11/05/21 12/02/21 Rx acetaminophen 500 mg tablet 1,000 mg PO DIRECTED PRN 12/02/21 12/02/21 History (Tylenol Extra Strength) FEVER/PAIN prednisone 5 mg tablet 12.5 mg PO DAILY 12/02/21 12/02/21 History rivaroxaban 15 mg tablet (Xarelto) 15 mg PO QDD 12/02/21 12/02/21 History Allergies Allergy/AdvReac Type Severity Reaction Status Date / Time Iodinated Contrast Media Allergy Intermediate Foot rash, Verified 12/02/21 14:57 swelling Sulfa (Sulfonamide Allergy Intermediate Rash, Verified 12/02/21 14:57 Antibiotics) itching sulfamethoxazole Allergy Intermediate Rash, Verified 12/02/21 14:57 itching Past Med/Surg History Medical History Abdominal pain, acute, bilateral lower quadrant Acute proctitis Anemia Celiac artery stenosis Chronic shoulder pain Pain started after CTR > per patient, PCP started her on prednisone for this which she they have been trying to slowly taper off of CKD (chronic kidney disease), stage III Diabetes mellitus, type 2 NIDDM Elevated lactic acid level Glaucoma Hypertension Morbid obesity Paroxysmal atrial fibrillation on Xarelto PMR (polymyalgia rheumatica) Rheumatoid arthritis Sleep apnea CPAP Surgical History Cyst Scalp cysts excision (12/12/18): Grade view 1, MAC#3, ETT 7.5 at [facility] colonoscopy History of ankle surgery Right History of carpal tunnel release Right History of hernia repair Laparoscopic hernia x2 History of knee replacement procedure of right knee R/L History of laminectomy Dr. Styles History of left knee replacement + subsequent Left knee I&D poly exchange History of lumpectomy of left breast benign History of revision of total knee arthroplasty R/L History of surgical procedure on eye proper using laser History of tooth extraction Hx of hysterectomy Hx of left cataract extraction Hx of right cataract extraction Family History Sister Breast cancer Father Heart disease Other No family history of adverse response to anesthesia Denies family history of Ovarian cancer Prostate cancer Myocardial infarction Lung cancer Colorectal cancer Social History Smoking Status: Former smoker Age Started Using Tobacco: 5; Age Quit Using Tobacco: 25; packs per day: 1; Years Smoked: 24; Second Hand Exposure: No; Hx Alcohol Use: No Hx Substance Use: No Preferred Language: Armenian Communication Ability: Effective Visual Impairment: Limited Hearing Ability: Normal Pumper Gager Apprentice Required: No Beliefs That Will Affect Care: None marital status: Current Living Situation: Rehab current occupational status: retired How many Children do You have: 5 Feels Safe at Home: Yes Childhood Exposure to Second-Hand Smoke: Yes caffeine: No during the past year weight has: decreased > 10 lbs Dental Care, Regularly: No Physical Activity Frequency: Does not Exercise Seatbelt Use: always Sunscreen Use: No Do you think of yourself as: straight/heterosexual Gender Identity: Female Assistive Devices: Walker Review of Systems A total of 10 systems reviewed and were otherwise negative Physical Exam Vital Signs Vital Signs - 24 hr 12/02/21 09:52 12/02/21 10:42 12/02/21 11:49 Temperature 36.3 C L Temperature Source Temporal Artery Scan Pulse Rate 87 Pulse Rate [Apical] 58 L Pulse Rhythm Regular Pulse Strength Normal Respiratory Rate 22 18 Respiratory Effort / Characteristics Non-Labored Spontaneous Non-Labored Spontaneous Respiratory Depth Normal Normal Respiratory Pattern Regular Blood Pressure 132/81 Blood Pressure [Right Arm] 142/76 H Blood Pressure Mean 98 Blood Pressure Mean [Right Arm] 98 Blood Pressure Position Sitting Pulse Oximetry 99 99 100 Oxygen Delivery Method Room Air Room Air Room Air Sepsis Recent Fever Within 48 Hours No Sepsis New/Unexplained Change in Mental Status No Sepsis Action Taken by Nursing No Action Required 12/02/21 12:44 12/02/21 14:00 Temperature Temperature Source Pulse Rate Pulse Rate [Apical] 67 66 Pulse Rhythm Pulse Strength Respiratory Rate 20 18 Respiratory Effort / Characteristics Non-Labored Accessory Muscle Use Respiratory Depth Normal Respiratory Pattern Blood Pressure Blood Pressure [Right Arm] 155/74 H 136/70 Blood Pressure Mean Blood Pressure Mean [Right Arm] 101 92 Blood Pressure Position Pulse Oximetry 100 100 Oxygen Delivery Method Room Air Sepsis Recent Fever Within 48 Hours Sepsis New/Unexplained Change in Mental Status Sepsis Action Taken by Nursing General: Well developed well nourished older female appears uncomfortable wheelchair but in no acute distress, breathing comfortably on room air. Normal speech HEENT: Normal cephalic atraumatic. Pupils are equal round and reactive to light. Extraocular movements are intact. Oropharynx is pink with moist mucous membranes. No swelling of the mouth lips or tongue. Neck: Supple with a midline trachea. No meningeal signs or stiffness, no JVD or bruits. No Stridor. Chest: Clear to auscultation bilaterally. No wheezes or rhonchi. No increased work of breathing. Heart: Regular rate and rhythm without murmurs or gallops. Abdomen: Soft nontender, nondistended without rebound guarding or rigidity. Extremities: No cyanosis clubbing or edema. No calf tenderness or assymetry. Right lower extremity is pink and well-perfused appearing with normal distal pulses normal motor and sensation in the foot. She is complaining of her thigh and has a shaye from where she was actually punching herself. There is no firmness and the compartments are all soft. Spine/Back. Mildly tender to palpation in the lower back towards her right flank. No CVA tenderness Skin: Good turgor without rashes. Neurologic exam: Cranial nerves two through 12 are intact. Motor and sensation are intact and symmetrical throughout. Course Administered Medications Discontinued Medications Sodium Chloride (Nss) 250 mls @ 999 mls/hr IV .Q16M ONE Stop: 12/02/21 10:25 Last Infusion: 12/02/21 11:15 Dose: 0 mls/hr Documented By: Admin: 12/02/21 10:59 Dose: 999 mls/hr Documented By: Morphine Sulfate (Morphine Sulfate 2 Mg/Ml Carp) 2 mg IV NOW STA Stop: 12/02/21 10:11 Last Admin: 12/02/21 11:01 Dose: 2 mg Documented By: Morphine Sulfate (Morphine Sulfate 2 Mg/Ml Carp) 2 mg IV NOW STA Stop: 12/02/21 13:39 Last Admin: 12/02/21 13:52 Dose: 2 mg Documented By: Ondansetron HCl (Ondansetron Inj 2 Mg/Ml 2 Ml Vial) 4 mg IV NOW STA Stop: 12/02/21 10:11 Last Admin: 12/02/21 11:00 Dose: 4 mg Documented By: Medical Decision Making Differential Diagnosis Sciatica, lumbar fracture, intra-abdominal process, traumatic injury, hematoma, adrenal insufficiency, electrolyte or metabolic abnormality Medical Records Attestation: I reviewed the patient's medical records. Home Medications Current Medication List: was personally reviewed by me Laboratory Data Attestation: I reviewed the patient's lab results. Result diagrams: 12/02/21 10:20 12/02/21 10:20 Lab Results 12/02/21 12/02/21 12/02/21 Range/Units 10:20 10:20 10:30 WBC 11.70 H (4.8-10.8) K/ul RBC 4.53 (3.93-5.22) M/uL Hgb 13.2 (12.0-16.0) g/dl Hct 40.7 (34.1-44.9) % MCV 89.8 (80.0-100.0) fL MCH 29.1 (25.0-34.0) pg MCHC 32.4 (32.0-36.0) g/dL RDW Std Deviation 47.7 H (36.4-46.3) fL RDW Coeff of Tiffany 14.6 H (11.5-14.5) % Plt Count 337 (130-400) K/uL MPV 9.9 (9.4-12.3) fL Immature Gran % (Auto) 0.6 % Neut % (Auto) 77.9 % Lymph % (Auto) 15.1 % Dent % (Auto) 5.8 % Eos % (Auto) 0.2 % Baso % (Auto) 0.4 % Neut # (Auto) 9.11 H (1.4-6.5) K/uL Lymph # (Auto) 1.77 (1.2-3.4) K/uL Dent # (Auto) 0.68 (0.24-0.82) K/uL Eos # (Auto) 0.02 (0-0.50) K/uL Baso # (Auto) 0.05 (0-0.2) K/uL Immature Gran # (Auto) 0.07 H (0.00-0.02) K/uL Sodium 141 (136-145) mmol/L Potassium 3.7 (3.5-5.1) mmol/L Chloride 102 (98-107) mmol/L Carbon Dioxide 28 (21-32) mmol/L Anion Gap 11 (3-11) BUN 30 H (6-23) mg/dl Creatinine 1.38 H (0.6-1.2) mg/dl Est Cr Clr Drug Dosing 38.4 ml/min Est GFR ( Amer) 42.9 ml/min Est GFR (Non-Af Amer) 37.0 ml/min BUN/Creatinine Ratio 21.7 H (10-20) Glucose 100 H (70-99(Fasting)) mg/dl Calcium 9.5 (8.5-10.1) mg/dl Total Bilirubin 0.7 (0.2-1.0) mg/dl AST 23 (13-39) U/L ALT 29 (7-52) U/L Alkaline Phosphatase 98 (34-104) U/L Total Protein 6.1 (6.0-8.3) gm/dl Albumin 3.5 (3.4-5.0) gm/dl Globulin 2.6 (2.5-4.0) gm/dl Albumin/Globulin Ratio 1.3 (0.9-2) Lipase 14 (11-82) U/L SARS-CoV-2, RNA, NAAT NEGATIVE (NEGATIVE) Imaging Data Attestation: I personally reviewed and interpreted this imaging study as follows: Radiologist's Impression: Lumbar Spine CT 12/02/21 10:08 CT lumbar spine wo con HISTORY: 76 years-old Female fall, pain rad down rt leg acute low back pain status post fall COMPARISON: CT abdomen and pelvis of same day and also 08/17/2021 TECHNIQUE: Multiple axial CT images of the lumbar spine were obtained without the use of IV contrast. A dose lowering technique was used consistent with the principals of ALLYNRA.r FINDINGS: 10 mm anterolisthesis L5 on S1 with chronic pars defects. 7 mm anterolisthesis L4 on L5 and 4 mm anterolisthesis L3 on L4 secondary to associated severe facet arthrosis. Multilevel vacuum disc phenomenon with mostly mild intervertebral disc space narrowing. No acute fracture, subluxation or endplate erosions. Prior right-sided laminectomy at L3-L4. Image sacrum and iliac bones appear intact. No paravertebral edema. Evaluation of the central canal and neuroforamina is better assessed by MRI technique. Moderate central canal stenosis at L4-L5. Tiny hiatal hernia. Atherosclerosis of the aorta. IMPRESSION: No acute fracture of the lumbar spine. ACT 112: Negative or not required by law. The above report was generated using voice recognition software. It may contain grammatical, syntax or spelling errors. Electronically signed by: Kevin Diaz M.D. 12/02/2021 11:54 AM Abdomen/Pelvis CT 12/02/21 10:10 CT OF THE ABDOMEN AND PELVIS WITHOUT CONTRAST CLINICAL HISTORY: Fall. Pain in right back/leg COMPARISON STUDY: CT of the abdomen and pelvis August 17, 2021. Right upper quadrant ultrasound August 18, 2021. TECHNIQUE: Axial images of the abdomen and pelvis were obtained without IV contrast. Images were reviewed in the axial, sagittal, and coronal planes. Automated exposure control was utilized for the study. A dose lowering technique was utilized adhering to the principles of ALARA. FINDINGS: No hemoperitoneum or pneumoperitoneum is present. Evaluation of the solid abdominal viscera is suboptimal on this unenhanced exam. Liver, spleen, adrenal glands, kidneys and pancreas are unremarkable. There is no biliary or pancreatic ductal dilatation. Gallbladder is distended. There are gallstones within the gallbladder, better depicted on prior ultrasound and CT. There is no pericholecystic stranding. Previous ventral hernia repair with mesh is noted. No evidence for a bowel obstruction. Colonic diverticulosis is noted without evidence for acute diverticulitis. Lumbar spine CT will be reported separately. No acute fracture is identified. Multilevel degenerative changes are present as well as anterolisthesis of L5 on S1 due to bilateral L5 pars defects. Appendix is not visualized. IMPRESSION: 1. No acute traumatic findings within the abdomen or pelvis on unenhanced exam. 2. Cholelithiasis and mild gallbladder distention. No pericholecystic infiltration. If right upper quadrant pain, ultrasound is recommended. 3. No bowel obstruction. ACT 112: Negative or not required by law. Electronically signed by: Ziggy Tineo M.D. 12/02/2021 11:40 AM [facility] Narrative This patient comes in as described above. She was placed in room C7 she appears uncomfortable and on my exam is complaining of back pain radiating to her legs. she did fall and has not had any imaging. I did order a CT to better look at the back as well as abdomen IV access were established was given morphine 2 mg IV and Zofran grams IV. She has no vital sign changes to suggest acute adrenal crisis she has been taking her steroids. White count is mildly elevated however she is on steroids. She has baseline renal insufficiency but no significant lecture light or metabolic abnormality. CAT scans do not show any acute fractures or or injury she does have a lot of degenerative changes in her back may ultimately need an MRI or further imaging. She did require additional IV morphine. She does not feel she can ambulate well at home. She has been in [facility] a month ago at her outsole caser talk to her she feels she needs to come in for pain management and then likely go back to rehab. I Have consulted the [facility] hospitalist for this. Continuous cardiac monitoring: An order was placed in the EMR for continuous cardiac monitoring. Upon my interpretation patient noted to have normal sinus rhythm with a rate of 60. Impression & Plan Back pain, Ambulatory dysfunction, Fall, Chronic renal insufficiency, group home (current) use of anticoagulants Discharge Plan Visit Data Chief Complaint: Leg Injury/Pain Stated Complaint: fall 2wks ago- pain right leg ED Provider: Jean Peterson Discharge Problem: Back pain, Ambulatory dysfunction, Fall, Chronic renal insufficiency, group home (current) use of anticoagulants Forms Stand Alone Forms: My [facility] Prescriptions Prescriptions: No Action folic acid 1 mg tablet 1 mg PO DAILY Qty: 90 3RF famotidine 40 mg tablet 40 mg PO BID Qty: 180 3RF lisinopril 10 mg tablet 10 mg PO DAILY Qty: 30 2RF hydrochlorothiazide 25 mg tablet 25 mg PO DAILY lidocaine 5 % adhesive patch,medicated 1 patch topical DAILY PRN (Reason: Pain) Rx Instructions: leave on most painful area for up to 12 hrs metformin 500 mg tablet 500 mg PO DAILY Hold Instructions: Sugar acceptable Rx Instructions: ON HOLD ondansetron HCl 4 mg tablet 4 mg PO Q8H PRN (Reason: nausea and vomiting) Qty: 30 0RF calcium carbonate-vitamin D3 [Calcium 600 + D(3)] 600 mg(1,500mg) -400 unit Tablet 1 tab PO QAM potassium gluconate 595 mg (99 mg) Tablet 99 mg PO QAM amiodarone 200 mg tablet 100 mg PO DAILY Qty: 90 3RF pantoprazole 40 mg Tablet,Delayed Release (Dr/Ec) 40 mg PO BID Qty: 0 0RF prednisone 5 mg tablet 12.5 mg PO DAILY acetaminophen [Tylenol Extra Strength] 500 mg Tablet 1,000 mg PO DIRECTED PRN (Reason: FEVER/PAIN) Xarelto 15 mg tablet 15 mg PO QDD Rx Instructions: must administer with evening meal Referrals Referrals: Dennis Alvarez MD [Primary Care Provider] -
[2021-12-02 10:44] LABS: Basophils # (auto) 0.05 K/uL (0-0.2); Basophils % (auto) 0.4 %; Eosinophils # (auto) 0.02 K/uL (0-0.50); Eosinophils % (auto) 0.2 %; Hematocrit (blood only) 40.7 % (34.1-44.9); Hemoglobin 13.2 g/dl (12.0-16.0); Immature Granulocytes # (auto) 0.07 K/uL (0.00-0.02); Immature Granulocytes % (auto) 0.6 %; Lymphocytes # (auto) 1.77 K/uL (1.2-3.4); Lymphocytes % (auto) 15.1 %; Mean Corpuscular Hemoglobin 29.1 pg (25.0-34.0); Mean Corpuscular Hgb Conc 32.4 g/dL (32.0-36.0); Mean Corpuscular Volume 89.8 fL (80.0-100.0); Mean Platelet Volume 9.9 fL (9.4-12.3); Monocytes # (auto) 0.68 K/uL (0.24-0.82); Monocytes % (auto) 5.8 %; Neutrophils # (auto) 9.11 K/uL (1.4-6.5); Neutrophils % (auto) 77.9 %; Platelet Count 337 K/uL (130-400); RDW Coefficient of Variation 14.6 % (11.5-14.5); RDW Standard Deviation 47.7 fL (36.4-46.3); Red Blood Count 4.53 M/uL (3.93-5.22)
[2021-12-02 11:08] LABS: Albumin Globulin Ratio 1.3 (0.9-2); Albumin Level 3.5 gm/dl (3.4-5.0); BUN Creatinine Ratio 21.7 (10-20); Bilirubin,Total 0.7 mg/dl (0.2-1.0); Calcium 9.5 mg/dl (8.5-10.1); Creatinine Clr Calc Pharmacy 38.4 ml/min; Est GFR (African American) 42.9 ml/min; Globulin 2.6 gm/dl (2.5-4.0); Potassium 3.7 mmol/L (3.5-5.1); Total Protein 6.1 gm/dl (6.0-8.3)
--- NOTE | 2021-12-02 11:42 | CT Scan Report ---
CT OF THE ABDOMEN AND PELVIS WITHOUT CONTRAST CLINICAL HISTORY: Fall. Pain in right back/leg COMPARISON STUDY: CT of the abdomen and pelvis August 17, 2021. Right upper quadrant ultrasound August 18, 2021. TECHNIQUE: Axial images of the abdomen and pelvis were obtained without IV contrast. Images were revi ewed in the axial, sagittal, and coronal planes. Automated exposure control was utilized for the ulises dy. A dose lowering technique was utilized adhering to the principles of ALARA. FINDINGS: No hemoperitoneum or pneumoperitoneum is present. Evaluation of the solid abdominal viscera is suboptimal on this unenhanced exam. Liver, spleen, adrenal glands, kidneys and pancreas are unrem arkable. There is no biliary or pancreatic ductal dilatation. Gallbladder is distended. There are gal lstones within the gallbladder, better depicted on prior ultrasound and CT. There is no pericholecyst ic stranding. Previous ventral hernia repair with mesh is noted. No evidence for a bowel obstruction. Colonic diverticulosis is noted without evidence for acute diverticulitis. Lumbar spine CT will be r eported separately. No acute fracture is identified. Multilevel degenerative changes are present as w ell as anterolisthesis of L5 on S1 due to bilateral L5 pars defects. Appendix is not visualized. IMPRESSION: 1. No acute traumatic findings within the abdomen or pelvis on unenhanced exam. 2. Cholelithiasis and mild gallbladder distention. No pericholecystic infiltration. If right upper qu adrant pain, ultrasound is recommended. 3. No bowel obstruction. ACT 112: Negative or not required by law. Electronically signed by: Ziggy Tineo M.D. 12/02/2021 11:40 AM
--- NOTE | 2021-12-02 11:57 | CT Scan Report ---
CT lumbar spine wo con HISTORY: 76 years-old Female fall, pain rad down rt leg acute low back pain status post fall COMPARISON: CT abdomen and pelvis of same day and also 08/17/2021 TECHNIQUE: Multiple axial CT images of the lumbar spine were obtained without the use of IV contrast. A dose lowering technique was used consistent with the principals of [email or web address].r FINDINGS: 10 mm anterolisthesis L5 on S1 with chronic pars defects. 7 mm anterolisthesis L4 on L5 and 4 mm ante rolisthesis L3 on L4 secondary to associated severe facet arthrosis. Multilevel vacuum disc phenomeno n with mostly mild intervertebral disc space narrowing. No acute fracture, subluxation or endplate er osions. Prior right-sided laminectomy at L3-L4. Image sacrum and iliac bones appear intact. No parave rtebral edema. Evaluation of the central canal and neuroforamina is better assessed by MRI technique. Moderate central canal stenosis at L4-L5. Tiny hiatal hernia. Atherosclerosis of the aorta. IMPRESSION: No acute fracture of the lumbar spine. ACT 112: Negative or not required by law. The above report was generated using voice recognition software. It may contain grammatical, syntax o r spelling errors. Electronically signed by: Kevin Diaz M.D. 12/02/2021 11:54 AM
--- NOTE | 2021-12-02 14:37 | History & Physical Report ---
Date of Service December 02, 2021 Assessment & Plan (1) Back pain: Plan: Acute on chronic back pain which currently is most likely related to sacroilitis - sharp stabbing pain with flexion and extension of standing and sitting- she is without muscle weakness or sensation abnormalities - Was able to get into bathroom and out without pain, but noted pain when getting back on stretcher - She does PT/OT at home- was told to hold off with her back pain over the past 3 days- has spent most of her time in her recliner - Pain control- Lidocaine patches, heat with K-pad, Scheduled Tylenol, initiate Gabapentin 300mg BID oxy IR for breakthrough, Morphine for severe pain, PT/OT consultation - Can consider referral to chronic pain or orthopaedics for further evaluation and treatment - hold further steroid dosing at this time- chronic use with side effects as well as she is without mobility hindrance and with muscular weakness/radiculopathy (2) Rheumatoid arthritis: Plan: Continue with steroid taper -12.5 mg daily until [id number] then 10mg daily - follow up with rheumatology (3) CKD (chronic kidney disease), stage III: Plan: Stable follow avoid further nephrotoxic medicaitons hold metformin (4) GERD (gastroesophageal reflux disease): Plan: Continue PPI avoid NSAIDS with CKD as well as chronic steroid use with Xarelto (5) History of lumbar laminectomy: Plan: As above- imaging with acute fracture or subluxation as above (6) Diabetes mellitus, type 2: Plan: Hold metformin transition to subq aspart sliding scale insulin (7) Paroxysmal atrial fibrillation: Plan: Rate and rythm controlled at this time - continue amiodarone and Xarelto - (8) Chronic steroid use: Plan: As above for RA - continue current taper History of Present Illness Primary Care Provider: Dennis Alvarez MD 76 YOF with medical history of: PAfib (on Amiodarone and Rivaroxaban), DM II, GERD, HTN, steroid induced immunosuppression, adrenal insufficiency, myopathy, knee replacement and Lumbar laminectomy L3-L4, decubitus ulceration, PJP pneumonia, CKD, proctitis, schaztki's ring with dilation 09/28. Patient comes to the EMD today for complaints of right sided back pain that radiates down to her knee. This has been ongoing for the past 3 weeks. This started following a fall where she fell trying to throw a shirt into the corner and she fell on forward on the her knees and elbow. The pain gets worse with sitting or standing, and has good days and bad days. She noticed that over the past 24 hours it has gotten worse. It is sharp stabbing pain that is in her right lower back and radiates to her right buttocks and down her leg with termination right above the knee. She has just been using 500mg Tylenol two tabs at home 3 times per day and Ice therapy. She is still able to get up and ambulate, let the dog out, and go into her yard and get around. She is without muscular weakness. She normally walks with a walker. In the EMD the [place] had routine blood work performed, lumbar spine CT and abdomen and pelvis CT scan performed. L4-L5 stenosis noted. She was given 4 mg of Morphine for her pain and hospitalist was consulted for admission. Patient will be observed for pain control, will introduce multimodal pain strategy, PT/OT consultation. Patient follows with Rheumatology for her RA and has seen them in October. She is currently on a steroid taper ongoing secondary to prolonged steroid exposure at higher doses. She takes 12.5 mg daily and will down trend down to 10mg daily at [id number]. She has an appointment with Endocrinology in a month. Allergies Allergy/AdvReac Type Severity Reaction Status Date / Time Iodinated Contrast Media Allergy Intermediate Foot rash, Verified 12/02/21 14:57 swelling Sulfa (Sulfonamide Allergy Intermediate Rash, Verified 12/02/21 14:57 Antibiotics) itching sulfamethoxazole Allergy Intermediate Rash, Verified 12/02/21 14:57 itching Home Medications Medication Instructions Recorded Confirmed Type calcium carbonate 600 mg-vitamin 1 tab PO QAM 01/25/20 12/02/21 History D3 10 mcg (400 unit) tablet (Calcium 600 + D(3)) potassium gluconate 595 mg (99 mg) 99 mg PO QAM 01/25/20 12/02/21 History tablet folic acid 1 mg tablet 1 mg PO DAILY #90 tabs 06/05/21 12/02/21 Rx amiodarone 200 mg tablet 100 mg PO DAILY #90 tabs 08/22/21 12/02/21 Rx pantoprazole 40 mg tablet,delayed 40 mg PO BID #0 tabs 08/22/21 12/02/21 Rx release hydrochlorothiazide 25 mg tablet 25 mg PO DAILY 10/02/21 12/02/21 History lidocaine 5 % topical patch 1 patch topical DAILY PRN Pain 10/02/21 12/02/21 History metformin 500 mg tablet 500 mg PO DAILY 10/02/21 12/02/21 History ondansetron HCl 4 mg tablet 4 mg PO Q8H PRN nausea and 10/02/21 12/02/21 Rx vomiting #30 tabs famotidine 40 mg tablet 40 mg PO BID #180 tabs 10/27/21 12/02/21 Rx lisinopril 10 mg tablet 10 mg PO DAILY #30 tabs 11/05/21 12/02/21 Rx acetaminophen 500 mg tablet 1,000 mg PO DIRECTED PRN 12/02/21 12/02/21 History (Tylenol Extra Strength) FEVER/PAIN prednisone 5 mg tablet 12.5 mg PO DAILY 12/02/21 12/02/21 History rivaroxaban 15 mg tablet (Xarelto) 15 mg PO QDD 12/02/21 12/02/21 History Past Med/Surg History Medical History Abdominal pain, acute, bilateral lower quadrant Acute proctitis Anemia Celiac artery stenosis Chronic shoulder pain Pain started after CTR > per patient, PCP started her on prednisone for this which she they have been trying to slowly taper off of CKD (chronic kidney disease), stage III Diabetes mellitus, type 2 NIDDM Elevated lactic acid level Glaucoma Hypertension Morbid obesity Paroxysmal atrial fibrillation on Xarelto PMR (polymyalgia rheumatica) Rheumatoid arthritis Sleep apnea CPAP Surgical History Cyst Scalp cysts excision (12/12/18): Grade view 1, MAC#3, ETT 7.5 at [facility] H/O colonoscopy History of ankle surgery Right History of carpal tunnel release Right History of hernia repair Laparoscopic hernia x2 History of knee replacement procedure of right knee R/L History of laminectomy Dr. Styles History of left knee replacement + subsequent Left knee I&D poly exchange History of lumpectomy of left breast benign History of revision of total knee arthroplasty R/L History of surgical procedure on eye proper using laser History of tooth extraction Hx of hysterectomy Hx of left cataract extraction Hx of right cataract extraction Family History Sister Breast cancer Father Heart disease Other No family history of adverse response to anesthesia Denies family history of Ovarian cancer Prostate cancer Myocardial infarction Lung cancer Colorectal cancer Social History Smoking Status: Former smoker Age Started Using Tobacco: 5; Age Quit Using Tobacco: 25; packs per day: 1; Years Smoked: 24; Second Hand Exposure: No; Hx Alcohol Use: No Hx Substance Use: No Preferred Language: Vietnamese Communication Ability: Effective Visual Impairment: Limited Hearing Ability: Normal Suppression Crew Leader Required: No Beliefs That Will Affect Care: None marital status: Current Living Situation: Rehab current occupational status: retired How many Children do You have: 5 Feels Safe at Home: Yes Childhood Exposure to Second-Hand Smoke: Yes caffeine: No during the past year weight has: decreased > 10 lbs Dental Care, Regularly: No Physical Activity Frequency: Does not Exercise Seatbelt Use: always Sunscreen Use: No Do you think of yourself as: straight/heterosexual Gender Identity: Female Assistive Devices: Walker Review of Systems Review of Systems: REVIEW OF SYSTEMS: Constitutional: No fever, sweats or chills Eyes: No diplopia, no worsening or blurred vision ENT: (+) difficulty hearing, no trouble swallowing Respiratory: No cough, sputum, dyspnea at rest or on exertion Cardiovascular: No chest pain, tightness or palpitations Abdomen: No pain, nausea, vomiting, diarrhea or constipation Musculoskeletal: (+) lower back joint pain, calf pain, swelling Neurologic: No weakness, numbness/tingling, or balance problems Psychiatric: No anxiety or depression Skin: (+) bruises to lower legs and left elbow Physical Exam Physical Exam: PHYSICAL EXAM: General: awake, alert, teary eyed because of pain Head: Normocephalic, atraumatic ENT: PERRL, EOMI, no pharyngeal exudate, mucous membranes moist Neuro: AAO x 3, speech clear and appropriate, strength intact bilaterally 5/5, sensation intact and equal all extremities and dermatomes, no pronator drift, no pain with straigt leg raise on either side with very good elevation on both sides, pain on right side with lowering of right leg following straight leg raise MSK: Pain with palpation at right iliac and SI joint with radiation to right buttocks, pressure to right buttocks with pain down to right knee laterally Chest: equal rise and fall of the chest, no accessory muscle use, no heaves or thirlls, Clear to auscultation, on room air, Cardiac: Regular rate and rhythm, telemetry reviewed- NSR, skin warm dry, cap refill <3 seconds, peripheral pulses +2 no JVD, no murmur, trace edema GI: NABS x 4 quadrants, soft, nontender to palpation, no rebound, guarding or tenderness : Spontaneously voiding, no pain, no CVA tenderness, Extremities: Normal inspection, no peripheral edema or erythema, calfs nontender to palpation Psych: Normal mood and affect Skin: bruising to left lower leg and right elbow Results & Data Results & Data ([facility]) Vital Signs (Past 12 Hours) Vital Signs Temp Pulse Pulse Resp BP BP Pulse Ox 12/02/21 12:44 67 20 155/74 H 100 12/02/21 11:49 58 L 18 142/76 H 100 12/02/21 10:42 99 12/02/21 09:52 36.3 C L 87 22 132/81 99 O2 Del Method 12/02/21 12:44 12/02/21 11:49 Room Air 12/02/21 10:42 Room Air 12/02/21 09:52 Room Air Laboratory Results Laboratory Results - last 24 hr 12/02/21 12/02/21 12/02/21 10:20 10:20 10:30 WBC 11.70 H RBC 4.53 Hgb 13.2 Hct 40.7 MCV 89.8 MCH 29.1 MCHC 32.4 RDW Std Deviation 47.7 H RDW Coeff of Tiffany 14.6 H Plt Count 337 MPV 9.9 Immature Gran % (Auto) 0.6 Neut % (Auto) 77.9 Lymph % (Auto) 15.1 [place] % (Auto) 5.8 Eos % (Auto) 0.2 Baso % (Auto) 0.4 Neut # (Auto) 9.11 H Lymph # (Auto) 1.77 [place] # (Auto) 0.68 Eos # (Auto) 0.02 Baso # (Auto) 0.05 Immature Gran # (Auto) 0.07 H Sodium 141 Potassium 3.7 Chloride 102 Carbon Dioxide 28 Anion Gap 11 BUN 30 H Creatinine 1.38 H Est Cr Clr Drug Dosing 38.4 Est GFR ( Amer) 42.9 Est GFR (Non-Af Amer) 37.0 BUN/Creatinine Ratio 21.7 H Glucose 100 H Calcium 9.5 Total Bilirubin 0.7 AST 23 ALT 29 Alkaline Phosphatase 98 Total Protein 6.1 Albumin 3.5 Globulin 2.6 Albumin/Globulin Ratio 1.3 Lipase 14 SARS-CoV-2, RNA, NAAT NEGATIVE Diagnostic Findings Lumbar Spine CT 12/02/21 10:08 CT lumbar spine wo con HISTORY: 76 years-old Female fall, pain rad down rt leg acute low back pain status post fall COMPARISON: CT abdomen and pelvis of same day and also 08/17/2021 TECHNIQUE: Multiple axial CT images of the lumbar spine were obtained without the use of IV contrast. A dose lowering technique was used consistent with the principals of STEPHAN.r FINDINGS: 10 mm anterolisthesis L5 on S1 with chronic pars defects. 7 mm anterolisthesis L4 on L5 and 4 mm anterolisthesis L3 on L4 secondary to associated severe facet arthrosis. Multilevel vacuum disc phenomenon with mostly mild intervertebral disc space narrowing. No acute fracture, subluxation or endplate erosions. Prior right-sided laminectomy at L3-L4. Image sacrum and iliac bones appear intact. No paravertebral edema. Evaluation of the central canal and neuroforamina is better assessed by MRI technique. Moderate central canal stenosis at L4-L5. Tiny hiatal hernia. Atherosclerosis of the aorta. IMPRESSION: No acute fracture of the lumbar spine. ACT 112: Negative or not required by law. The above report was generated using voice recognition software. It may contain grammatical, syntax or spelling errors. Electronically signed by: Kevin iDaz M.D. 12/02/2021 11:54 AM Abdomen/Pelvis CT 12/02/21 10:10 CT OF THE ABDOMEN AND PELVIS WITHOUT CONTRAST CLINICAL HISTORY: Fall. Pain in right back/leg COMPARISON STUDY: CT of the abdomen and pelvis August 17, 2021. Right upper quadrant ultrasound August 18, 2021. TECHNIQUE: Axial images of the abdomen and pelvis were obtained without IV contrast. Images were reviewed in the axial, sagittal, and coronal planes. Automated exposure control was utilized for the study. A dose lowering technique was utilized adhering to the principles of ALARA. FINDINGS: No hemoperitoneum or pneumoperitoneum is present. Evaluation of the solid abdominal viscera is suboptimal on this unenhanced exam. Liver, spleen, adrenal glands, kidneys and pancreas are unremarkable. There is no biliary or pancreatic ductal dilatation. Gallbladder is distended. There are gallstones within the gallbladder, better depicted on prior ultrasound and CT. There is no pericholecystic stranding. Previous ventral hernia repair with mesh is noted. No evidence for a bowel obstruction. Colonic diverticulosis is noted without evidence for acute diverticulitis. Lumbar spine CT will be reported separately. No acute fracture is identified. Multilevel degenerative changes are present as well as anterolisthesis of L5 on S1 due to bilateral L5 pars defects. Appendix is not visualized. IMPRESSION: 1. No acute traumatic findings within the abdomen or pelvis on unenhanced exam. 2. Cholelithiasis and mild gallbladder distention. No pericholecystic infiltration. If right upper quadrant pain, ultrasound is recommended. 3. No bowel obstruction. ACT 112: Negative or not required by law. Electronically signed by: Ziggy Tineo M.D. 12/02/2021 11:40 AM Medications Administered Home Medications calcium carbonate 600 mg-vitamin D3 10 mcg (400 unit) tablet (Calcium 600 + D(3)) 1 tab PO QAM 01/25/20 [History Confirmed 08/17/21] potassium gluconate 595 mg (99 mg) tablet 99 mg PO QAM 01/25/20 [History Confirmed 08/17/21] folic acid 1 mg tablet 1 mg PO DAILY #90 tabs 06/05/21 [Rx Confirmed 08/17/21] acetaminophen 325 mg tablet (Tylenol) 650 mg PO Q6 PRN pain 1-10 08/17/21 [History Confirmed 08/17/21] acetaminophen 325 mg tablet (Tylenol) 650 mg PO Q6 PRN temp>100 08/17/21 [History Confirmed 08/17/21] cholecalciferol (vitamin D3) 10 mcg (400 unit) capsule (Vitamin D3) 10 mcg PO DAILY 08/17/21 [History Confirmed 08/17/21] amiodarone 200 mg tablet 100 mg PO DAILY #90 tabs 08/22/21 [Rx Confirmed 08/17/21] pantoprazole 40 mg tablet,delayed release 40 mg PO BID #0 tabs 08/22/21 [Rx Confirmed 08/17/21] hydrochlorothiazide 25 mg tablet 25 mg PO DAILY 10/02/21 [History Confirmed 10/02/21] lidocaine 5 % topical patch 1 patch topical DAILY 10/02/21 [History Confirmed 10/02/21] metformin 500 mg tablet 500 mg PO DAILY 10/02/21 [History Confirmed 10/02/21] ondansetron HCl 4 mg tablet 4 mg PO Q8H PRN nausea and vomiting #30 tabs 10/02/21 [Rx Confirmed 10/02/21] famotidine 40 mg tablet 40 mg PO BID #180 tabs 10/27/21 [Rx] rivaroxaban 15 mg tablet (Xarelto) 15 mg PO DAILY #90 tabs 10/27/21 [Rx] lisinopril 10 mg tablet 10 mg PO DAILY #30 tabs 11/05/21 [Rx] Active Medications Prednisone (Prednisone 2.5 Mg Tab) 12.5 mg PO QAM EMMANUEL Stop: 01/02/22 08:59 Discontinued Medications Sodium Chloride (Nss) 250 mls @ 999 mls/hr IV .Q16M ONE Stop: 12/02/21 10:25 Last Infusion: 12/02/21 11:15 Dose: 0 mls/hr Documented By: Admin: 12/02/21 10:59 Dose: 999 mls/hr Documented By: Morphine Sulfate (Morphine Sulfate 2 Mg/Ml Carp) 2 mg IV NOW STA Stop: 12/02/21 10:11 Last Admin: 12/02/21 11:01 Dose: 2 mg Documented By: Morphine Sulfate (Morphine Sulfate 2 Mg/Ml Carp) 2 mg IV NOW STA Stop: 12/02/21 13:39 Last Admin: 12/02/21 13:52 Dose: 2 mg Documented By: Ondansetron HCl (Ondansetron Inj 2 Mg/Ml 2 Ml Vial) 4 mg IV NOW STA Stop: 12/02/21 10:11 Last Admin: 12/02/21 11:00 Dose: 4 mg Documented By: ECG Additional Comments: none on admission Code Status & VTE Plan Code Status CODE: FULL VTE: SCDS, Rivaroxaban Supervising Physician Co-Signing Physician Notes I supervised DESHAWN Zimmerman on this admission. I interviewed and examined the patient independently of him. The plan is as written in his note except for any following changes/exceptions: None 76yo F w/ hx of RA who presents with acute back pain and inability to care for self at home. Has hx of RA and other joint issues, so much of this is ongoing issues. Will help with pain with standing and PRN meds and get PT/OT. PG Care Time/CCT Total # of Minutes Spent Total Time Spent with Patient: Total time spent is greater than 50% in coordination of care (as documented) at patient's floor/unit and/or counseling patient: Coding Level of Care Code INT OBSERVATION CARE 70M LVL 3 Diagnoses Back pain M54.9 Rheumatoid arthritis M06.9 CKD (chronic kidney disease), stage III N18.31 Chronic kidney disease stage 3 subtype: stage 3a (GFR 45-59) GERD (gastroesophageal reflux disease) K21.9 Esophagitis presence: without esophagitis History of lumbar laminectomy Z98.890 Diabetes mellitus, type 2 E11.22; N18.31 Chronic kidney disease stage: stage 3 (moderate) Chronic kidney disease stage 3 subtype: stage 3a (GFR 45-59) Diabetes mellitus complication detail: with chronic kidney disease Diabetes mellitus complication status: with kidney complications Diabetes mellitus group home insulin use: without remote encoding operations supervisor use Paroxysmal atrial fibrillation I48.0 Chronic steroid use (1) Diabetes mellitus, type 2 Chronic kidney disease stage: stage 3 (moderate) Chronic kidney disease stage 3 subtype: stage 3a (GFR 45-59) Diabetes mellitus complication detail: with chronic kidney disease Diabetes mellitus complication status: with kidney complications Diabetes mellitus remote encoding operations supervisor insulin use: without group home use Qualified Code(s): E11.22 - Type 2 diabetes mellitus with diabetic chronic kidney disease; N18.31 - Chronic kidney disease, stage 3a (2) CKD (chronic kidney disease), stage III Chronic kidney disease stage 3 subtype: stage 3a (GFR 45-59) Qualified Code(s): N18.31 - Chronic kidney disease, stage 3a (3) GERD (gastroesophageal reflux disease) Esophagitis presence: without esophagitis Qualified Code(s): K21.9 - Gastro- esophageal reflux disease without esophagitis
[2021-12-02] MEDS ORDERED: GLUCOSE 40% GEL 15 GM TUBE PO PRN (16:51)
[2021-12-02] MEDS ORDERED: CARBOHYDRATES FOR HYPOGLYCEMIA PO PRN (16:51)
[2021-12-02] MEDS ORDERED: oxyCODONE HCL IR 5 MG TAB (IMMEDIATE RELEASE) PO PRN (16:51)
[2021-12-02] MEDS ORDERED: GLUCAGON FOR INJ 1 MG VIAL SQ PRN (16:51)
[2021-12-02] MEDS ORDERED: DEXTROSE 50% 50 ML SYRINGE IV PRN (16:51)
[2021-12-02] MEDS ORDERED: GLUCOSE 10 TAB/TUBE PO PRN (16:51)
[2021-12-02] MEDS ORDERED: ONDANSETRON 4 MG OD TAB PO PRN (16:57)
[2021-12-02] MEDS: INSULIN ASPART PER UNIT SC SCH ×2 (17:32→20:39)
[2021-12-02] MEDS: LIDOCAINE 5% 1 PATCH TD SCH (17:34)
[2021-12-02] MEDS: ACETAMINOPHEN 500 MG TAB PO SCH (20:33)
[2021-12-02] MEDS: PANTOprazole 40 MG TAB PO SCH (20:33)
[2021-12-02] MEDS: GABAPENTIN 300 MG CAP PO SCH (20:42)
[2021-12-03 07:01] LABS: Hematocrit (blood only) 36.4 % (34.1-44.9); Hemoglobin 11.8 g/dl (12.0-16.0); Mean Corpuscular Hemoglobin 29.1 pg (25.0-34.0); Mean Corpuscular Hgb Conc 32.4 g/dL (32.0-36.0); Mean Corpuscular Volume 89.7 fL (80.0-100.0); Mean Platelet Volume 9.3 fL (9.4-12.3); Platelet Count 277 K/uL (130-400); RDW Coefficient of Variation 14.6 % (11.5-14.5); RDW Standard Deviation 48.4 fL (36.4-46.3); Red Blood Count 4.06 M/uL (3.93-5.22); White Blood Count 7.75 K/ul (4.8-10.8)
[2021-12-03 07:28] LABS: BUN Creatinine Ratio 20.3 (10-20); Calcium 8.6 mg/dl (8.5-10.1); Creatinine Clr Calc Pharmacy 34.4 ml/min; Est GFR (African American) 37.9 ml/min; Est GFR (Non-African American) 32.7 ml/min; Magnesium 1.6 mg/dl (1.7-2.4); Potassium 4.2 mmol/L (3.5-5.1)
[2021-12-03 07:29] LABS: Estimated Average Glucose 100 mg/dl; Hemoglobin A1C 5.1 % (4.5-5.6)
[2021-12-03] MEDS: ACETAMINOPHEN 500 MG TAB PO SCH ×3 (08:14→22:01)
[2021-12-03] MEDS: RIVAROXABAN 15 MG TAB PO SCH (08:15)
[2021-12-03] MEDS: hydroCHLOROthiazide 25 MG TAB PO SCH (08:15)
[2021-12-03] MEDS: predniSONE 2.5 MG TAB PO SCH (08:15)
[2021-12-03] MEDS: PANTOprazole 40 MG TAB PO SCH ×2 (08:15→22:00)
[2021-12-03] MEDS: FAMOTIDINE 20 MG TAB PO SCH (08:16)
[2021-12-03] MEDS: FOLIC ACID 1 MG TAB PO SCH (08:16)
[2021-12-03] MEDS: AMIODARONE 200 MG TAB PO SCH (08:16)
[2021-12-03] MEDS: LIDOCAINE 5% 1 PATCH TD SCH (08:18)
[2021-12-03] MEDS: GABAPENTIN 300 MG CAP PO SCH ×2 (08:21→22:00)
--- NOTE | 2021-12-03 08:34 | Hospitalist Progress Note ---
Date of Service December 03, 2021 Assessment & Plan (1) Back pain: Plan: Acute on chronic back pain which maybe related to sacroilitis - sharp stabbing pain with flexion and extension of standing and sitting- she is without muscle weakness or sensation abnormalities - - She does PT/OT at home- was told to hold off with her back pain over the past 3 days- has spent most of her time in her recliner - Pain control- Lidocaine patches, heat with K-pad, Scheduled Tylenol, initiate Gabapentin 300mg BID oxy IR for breakthrough, Morphine for severe pain, PT/OT consultation - pain this am requiring parenteral morphine, pain maynot be classic for SI issue with the thigh extension - hold further steroid dosing at this time- chronic use with side effects (previous PJP infection) as well as she is without mobility hindrance and with muscular weakness/radiculopathy (2) Rheumatoid arthritis: Plan: Continue with steroid taper -12.5 mg daily until [id number] then 10mg daily - follow up with rheumatology (3) CKD (chronic kidney disease), stage III: Plan: Stable follow avoid further nephrotoxic medicaitons hold metformin (4) GERD (gastroesophageal reflux disease): Plan: Continue PPI avoid NSAIDS with CKD as well as chronic steroid use with Xarelto (5) History of lumbar laminectomy: Plan: As above- imaging with acute fracture or subluxation as above (6) Diabetes mellitus, type 2: Plan: Hold metformin transition to subq aspart sliding scale insulin (7) Paroxysmal atrial fibrillation: Plan: Rate and rythm controlled at this time - continue amiodarone and Xarelto - (8) Chronic steroid use: Plan: As above for RA - continue current taper Admission and Anticipated Discharge Date Admission Date: December 02, 2021 Subjective pt has persistent pain in right posterior hip that radiates to the mid thigh Review of Systems Review of Systems: Moderate distress and fatigue no headache, no visual changes no speech or swallowing issues no chest pain, pressure or palpitations no shortness of breath, cough or wheezes no abdominal pain, nausea or vomiting, diarrhea or constipation no dysuria, hematuria or frequency no focal joint pain or swelling right posterior hip pain with radiation to right thigh no bruising, bleeding or rashes no focal signs of weakness or numbness or altered sensation no complaints of anxiety or depression.. Physical Exam Physical Exam: The patient appeared well nourished and normally developed. Vital signs as documented. Head exam is normocephalic atraumatic Neck is without JVD, thyromegaly, or carotid bruits. Lungs are clear to auscultation, no focal loss of breath sounds Cardiac exam, Rhythm is regular.. No murmurs, rubs or gallops. Abdominal exam reveals normal bowel sounds, soft non tender, no masses Extremities are nonedematous and both pedal pulses are present Neurologic exam is alert and oriented, no focal loss of strength or sensation reproducible pain at right posterior hip with some radiation to to mid thigh Skin is without bruises or rashes Psychologically is without concerns for anxiety or depression.. Results & Data Results & Data ([facility]) Vital Signs (Past 12 Hours) Vital Signs Temp Pulse Resp BP Pulse Ox O2 Del Method 12/03/21 07:20 Room Air 12/03/21 07:06 97.7 F 57 L 16 111/71 99 Room Air 12/02/21 21:20 97.9 F 60 14 112/77 98 Room Air PG Care Time/CCT Total # of Minutes Spent Total Time Spent with Patient: Total time spent is greater than 50% in coordination of care (as documented) at patient's floor/unit and/or counseling patient: Coding Level of Care Code 47244 Subseq Hosp Care Lvl 2 Diagnoses Back pain M54.9 Rheumatoid arthritis M06.9 CKD (chronic kidney disease), stage III N18.31 Chronic kidney disease stage 3 subtype: stage 3a (GFR 45-59) GERD (gastroesophageal reflux disease) K21.9 Esophagitis presence: without esophagitis History of lumbar laminectomy Z98.890 Diabetes mellitus, type 2 E11.22; N18.31 Chronic kidney disease stage: stage 3 (moderate) Chronic kidney disease stage 3 subtype: stage 3a (GFR 45-59) Diabetes mellitus complication detail: with chronic kidney disease Diabetes mellitus complication status: with kidney complications Diabetes mellitus long-term insulin use: without oil heaterman use Paroxysmal atrial fibrillation I48.0 Chronic steroid use (1) Diabetes mellitus, type 2 Chronic kidney disease stage: stage 3 (moderate) Chronic kidney disease stage 3 subtype: stage 3a (GFR 45-59) Diabetes mellitus complication detail: with chronic kidney disease Diabetes mellitus complication status: with kidney complications Diabetes mellitus oil heaterman insulin use: without oil heaterman use Qualified Code(s): E11.22 - Type 2 diabetes mellitus with diabetic chronic kidney disease; N18.31 - Chronic kidney disease, stage 3a (2) CKD (chronic kidney disease), stage III Chronic kidney disease stage 3 subtype: stage 3a (GFR 45-59) Qualified Code(s): N18.31 - Chronic kidney disease, stage 3a (3) GERD (gastroesophageal reflux disease) Esophagitis presence: without esophagitis Qualified Code(s): K21.9 - Gastro- esophageal reflux disease without esophagitis
[2021-12-03] MEDS: INSULIN ASPART PER UNIT SC SCH ×4 (08:44→21:35)
[2021-12-03] MEDS ORDERED: MoRPHine SULFATE 4 MG/ML 1 ML CARP\\VIAL IV PRN (08:47)
[2021-12-03] MEDS ORDERED: MoRPHine SULFATE 2 MG/ML CARP IV PRN (08:47)
[2021-12-03] MEDS: MAGNESIUM SULFATE / D5W 1 GM/100 ML BAG IV SCH ×2 (08:58→10:29)
[2021-12-03] MEDS ORDERED: lisinopril 10 MG TAB PO SCH (09:00)
[2021-12-04] MEDS: oxyCODONE HCL IR 5 MG TAB (IMMEDIATE RELEASE) PO PRN ×2 (06:14→20:37)
[2021-12-04] MEDS: ACETAMINOPHEN 500 MG TAB PO SCH ×3 (08:14→20:41)
[2021-12-04] MEDS: AMIODARONE 200 MG TAB PO SCH (08:15)
[2021-12-04] MEDS: predniSONE 2.5 MG TAB PO SCH (08:16)
[2021-12-04] MEDS: FOLIC ACID 1 MG TAB PO SCH (08:16)
[2021-12-04] MEDS: PANTOprazole 40 MG TAB PO SCH ×2 (08:16→20:39)
[2021-12-04] MEDS: LIDOCAINE 5% 1 PATCH TD SCH (08:16)
[2021-12-04] MEDS: GABAPENTIN 300 MG CAP PO SCH ×2 (08:16→20:38)
[2021-12-04] MEDS: RIVAROXABAN 15 MG TAB PO SCH (08:16)
[2021-12-04] MEDS: hydroCHLOROthiazide 25 MG TAB PO SCH (08:17)
[2021-12-04] MEDS: FAMOTIDINE 20 MG TAB PO SCH (08:18)
[2021-12-04] MEDS: INSULIN ASPART PER UNIT SC SCH ×5 (08:21→21:09)
--- NOTE | 2021-12-04 08:45 | Pain Management Consultation ---
Date of Consultation December 04, 2021 Assessment & Plan (1) Lumbar radicular pain: (2) History of lumbar laminectomy: (3) Chronic steroid use: (4) Paroxysmal atrial fibrillation: Plan 1. We discussed potential etiologies of her pain. Recommend lumbar MRI with and without contrast. Patient reporting that she needs "sedated" to pursue MRI. This was discussed further with Dr. Renee who will attempt MRI with pre- dosing of benzodiazepines. Will also request flexion-extension x-rays to ensure stability due to anterolisthesis identified at multiple levels on lumbar CT. 2. Patient will need to be able to safely hold her anticoagulation therapy for consideration of any interventional procedures 3. Maintain gabapentin 300 mg twice daily but consider titration to 3 times martha ly over the next few days 4. Recommend patient maintain Oxy IR and IV morphine for as needed breakthrough pain 5. Further recommendation will made pending review of x-rays and MRI History of Present Illness Reason for Consultation: Right sided low back pain and right lower extremity pain Requesting Physician: London Renee MD Attending Physician: London Renee MD History of Present Illness Mrs. Dow is a 76-year-old obese white female with multiple comorbid medical conditions including rheumatoid arthritis on chronic steroid therapy, chronic kidney disease, type 2 diabetes mellitus, paroxysmal A. fib on chronic anticoagulation therapy, and adrenal insufficiency who presents with intractable pain in the right low back and right lower extremity traveling in a predominant L4 distribution. The patient reported onset of her symptoms a few weeks ago and then worsened after she suffered a fall in the home a few weeks ago. Her pain is 70% radicular and 30% axial in the right lumbosacral region. Her pain travels over the lateral and anterior thigh typically stopping at the knee but occasionally traveling to below the knee to the mid pretibial region. She describes the pain as sharp, burning and stabbing in characteristic. Her pain is aggravated with movement with positional change, standing and walking. Patient rates her pain a 2/10 at its best and a 10/10 at its worst. She reports significant pain this morning while ambulating to the bathroom. She is finding Oxy IR to be beneficial at diminishing the severity of her pain with minimal side effects. She has prior history of lumbar spine surgery with L3-[address] Styles a few years ago. She has history of bilateral TKA. Patient reports history of chronic steroid utilization which has been gradually decreasing per rheumatology. Patient rarely experiences pain into the right groin. She denies left lower extremity radicular pattern pain. She denies any notable weaknesses, foot drop, bowel or bladder incontinence or saddle anesthesia. Patient has no further constitutional complaints. Plan of care discussed with Dr. Meena Hays. Pain Assessment Full Body Front + Back: 1. Right sided low back pain 2. Right lumbar radicular pain in L4 distribution Pain scale - at its best (0-10): 2 Pain scale - at its worst (0-10): 10 Allergies Allergy/AdvReac Type Severity Reaction Status Date / Time Iodinated Contrast Media Allergy Intermediate Foot rash, Verified 12/02/21 14:57 swelling Sulfa (Sulfonamide Allergy Intermediate Rash, Verified 12/02/21 14:57 Antibiotics) itching sulfamethoxazole Allergy Intermediate Rash, Verified 12/02/21 14:57 itching Home Medications Medication Instructions Recorded Confirmed Type calcium carbonate 600 mg-vitamin 1 tab PO QAM 01/25/20 12/02/21 History D3 10 mcg (400 unit) tablet (Calcium 600 + D(3)) potassium gluconate 595 mg (99 mg) 99 mg PO QAM 01/25/20 12/02/21 History tablet folic acid 1 mg tablet 1 mg PO DAILY #90 tabs 06/05/21 12/02/21 Rx amiodarone 200 mg tablet 100 mg PO DAILY #90 tabs 08/22/21 12/02/21 Rx pantoprazole 40 mg tablet,delayed 40 mg PO BID #0 tabs 08/22/21 12/02/21 Rx release hydrochlorothiazide 25 mg tablet 25 mg PO DAILY 10/02/21 12/02/21 History lidocaine 5 % topical patch 1 patch topical DAILY PRN Pain 10/02/21 12/02/21 History metformin 500 mg tablet 500 mg PO DAILY 10/02/21 12/02/21 History ondansetron HCl 4 mg tablet 4 mg PO Q8H PRN nausea and 10/02/21 12/02/21 Rx vomiting #30 tabs famotidine 40 mg tablet 40 mg PO BID #180 tabs 10/27/21 12/02/21 Rx lisinopril 10 mg tablet 10 mg PO DAILY #30 tabs 11/05/21 12/02/21 Rx acetaminophen 500 mg tablet 1,000 mg PO DIRECTED PRN 12/02/21 12/02/21 History (Tylenol Extra Strength) FEVER/PAIN prednisone 5 mg tablet 12.5 mg PO DAILY 12/02/21 12/02/21 History rivaroxaban 15 mg tablet (Xarelto) 15 mg PO QDD 12/02/21 12/02/21 History Pain History Pain Intensity Pain scale - at its best (0-10): 2 Pain scale - at its worst (0-10): 10 Patient History Medical History (Updated 12/04/21 @ 08:42 by Nick Linares PA-C) Abdominal pain, acute, bilateral lower quadrant Acute proctitis Anemia Celiac artery stenosis Chronic shoulder pain Pain started after CTR > per patient, PCP started her on prednisone for this which she they have been trying to slowly taper off of CKD (chronic kidney disease), stage III Diabetes mellitus, type 2 NIDDM Elevated lactic acid level Glaucoma Hypertension Lumbar radicular pain Morbid obesity Paroxysmal atrial fibrillation on Xarelto PMR (polymyalgia rheumatica) Rheumatoid arthritis Sleep apnea CPAP Surgical History Cyst Scalp cysts excision (12/12/18): Grade view 1, MAC#3, ETT 7.5 at [facility] H/O colonoscopy History of ankle surgery Right History of carpal tunnel release Right History of hernia repair Laparoscopic hernia x2 History of knee replacement procedure of right knee R/L History of laminectomy Dr. Styles History of left knee replacement + subsequent Left knee I&D poly exchange History of lumpectomy of left breast benign History of revision of total knee arthroplasty R/L History of surgical procedure on eye proper using laser History of tooth extraction Hx of hysterectomy Hx of left cataract extraction Hx of right cataract extraction Family History Sister Breast cancer Father Heart disease Other No family history of adverse response to anesthesia Denies family history of Ovarian cancer Prostate cancer Myocardial infarction Lung cancer Colorectal cancer Social History Smoking Status: Never smoker Age Started Using Tobacco: 5; Age Quit Using Tobacco: 25; packs per day: 1; Years Smoked: 24; Second Hand Exposure: No; Do You Dip or Chew Tobacco: No; Hx Alcohol Use: No Hx Substance Use: No Preferred Language: Norwegian Communication Ability: Effective Visual Impairment: Limited Hearing Ability: Normal Visitor Service Assistant Required: No Beliefs That Will Affect Care: None marital status: Current Living Situation: Family Current Living Situation Comment: lives with and sons come over to help current occupational status: retired How many Children do You have: 5 Other Information That Helps Us Care for You: No Feels Safe at Home: Yes Safety Concerns: Feels Safe At This Time Childhood Exposure to Second-Hand Smoke: Yes caffeine: No during the past year weight has: decreased > 10 lbs Dental Care, Regularly: No Physical Activity Frequency: Does not Exercise Seatbelt Use: always Sunscreen Use: No Do you think of yourself as: straight/heterosexual Gender Identity: Female Assistive Devices: Walker and Wheelchair Assistive Devices Comment: glasses not here Physical Exam Physical Exam: General: Patient lying quietly in exam room in no acute distress. Speech and thought process appropriate. Mood and affect appropriate. Cognition intact. Head: Normocephalic and atraumatic. ENT: No evidence of nasal or oral mucosal lesions. Mucous membranes are moist. Eyes: Pupils equal round reactive to light. Neck: Supple without adenopathy and full range of motion. Abdomen: Soft and nondistended. No organomegaly. Bowel sounds active. Back/spine: Patient diffusely tender over the right mid and lower lumbar paravertebral and SI joint region to provocative testing. Patient minimally tender throughout the gluteal region. No appreciable spasm or myoneural trigger points. Patient able to logroll towards her left without assistance for physical exam. Lower extremities: SLR positive on the right reproducing L4 distribution pain over the anterior thigh and knee. Well-healed anterior surgical incision bilateral TKA. Hip is nontender with internal/external rotation. Minimally tender over the greater trochanter and throughout the thigh to direct palpation in an L4 distribution. Sensation was intact without focal deficit. Strength testing 5/5 with dorsiflexion, plantarflexion and hip flexion/extension. Neurologic: Cranial nerves grossly intact. Ambulatory function not witnessed. Results (Pain Clinic) Diagnostic Review CT Findings: [place], [place] [phone] CT Scan Report Patient:KORI DOW Admit Date:12/02/21 MR#:[id number] Address1:[address] Acct ID:[id number] Address2: Date:1945 [facility] Zip:[place] [id number] Age:76 Location:ED Sex:F Room/Bed: Att Phy: Diagnosis:fall 2wks ago- pain right leg Mariama Phy:Dennis Alvarez MD Service Date:12/02/21 [facility] Phy: Interpreting Phy:Kevin DiazAdmit Phy: Ordering Phy:Jean Peterson M.D. cc: ~ CT lumbar spine wo con HISTORY: 76 years-old Female fall, pain rad down rt leg acute low back pain status post fall COMPARISON: CT abdomen and pelvis of same day and also 08/17/2021 TECHNIQUE: Multiple axial CT images of the lumbar spine were obtained without the use of IV contrast. A dose lowering technique was used consistent with the principals of [email or web address].r FINDINGS: 10 mm anterolisthesis L5 on S1 with chronic pars defects. 7 mm anterolisthesis L4 on L5 and 4 mm anterolisthesis L3 on L4 secondary to associated severe facet arthrosis. Multilevel vacuum disc phenomenon with mostly mild intervertebral disc space narrowing. No acute fracture, subluxation or endplate erosions. Prior right-sided laminectomy at L3-L4. Image sacrum and iliac bones appear intact. No paravertebral edema. Evaluation of the central canal and neuroforamina is better assessed by MRI technique. Moderate central canal stenosis at L4-L5. Tiny hiatal hernia. Atherosclerosis of the aorta. IMPRESSION: No acute fracture of the lumbar spine. ACT 112: Negative or not required by law. The above report was generated using voice recognition software. It may contain grammatical, syntax or spelling errors. Electronically signed by: Kevin Diaz M.D. 12/02/2021 11:54 AM Dictated:12/02/21 1147 Transcribed: 12/02/21 1147 Previous Records Review Previous Records: personally reviewed by me
[2021-12-04] MEDS ORDERED: LORazepam 1 MG in SYRINGE 0.5 ML IV STA (09:18)
[2021-12-04] MEDS ORDERED: GADOBUTROL 65ML VIAL IV ONE (12:45)
--- NOTE | 2021-12-04 13:30 | XRay Report ---
XR lumbar spine flex/ext only CLINICAL HISTORY: low back pain, anterolisthesis COMPARISON STUDY: Lumbar spine CT 12/02/2021. FINDINGS: No fractures within the lumbar spine. Alignment remains intact throughout flexion and exten tonie. There is grade 2 anterolisthesis of L5 on S1 which measures approximately 12 mm. There is bilat eral L5 spondylolysis. There is grade 1 anterolisthesis of L3 on L4 and L4 on L5 measuring 3 mm. This remains unchanged. Moderate to severe facet degenerative changes within the lower lumbar spine. Ther e is also moderate to severe disc space narrowing at L5-S1 and mild disc space narrowing at L2-L3 and L3-L4. IMPRESSION: 1. Multilevel spondylolisthesis as described above which remains intact throughout flexion and extens ion. 2. Bilateral L5 spondylolysis again noted. 3. No fractures ACT 112: Negative or not required by law. Electronically signed by: Jay Arnold M.D. 12/04/2021 1:28 PM
--- NOTE | 2021-12-04 14:39 | Magnetic Resonance Report ---
MRI OF THE LUMBAR SPINE WITH AND WITHOUT CONTRAST CLINICAL HISTORY: Radicular back pain. COMPARISON STUDY: Lumbar spine MRI October 28, 2020. Lumbar spine CT December 02, 2021. Lumbar spine radiog raphs November 26, 2021. TECHNIQUE: Utilizing a 1.5 Akila magnet and dedicated coil, multiplanar, multiecho imaging of the silver mbar spine was performed before and after uneventful IV administration of Gadavist. FINDINGS: For purposes of numbering on this exam, the L5-S1 disc space is assigned to axial image 17 of 23 of [facility] lower axial sequences. 9 mm of anterolisthesis of L5 on S1 is similar to MRI of October 28, 2021 and due to bilateral L5 pars defects. Slight anterolisthesis of L3 on L4 and L4 on L5 is unchanged. No silver mbar spine fracture is noted. No suspicious marrow replacement. Conus terminates at the mid L1 level. Paravertebral soft tissues are unremarkable. Gallbladder is distended. Gallstones are noted within [facility] gallbladder. Appearance is similar to CT of December 02, 2021. No suspicious marrow replacement is pre sent. No abnormal enhancement within the canal is present. Note is made of an interval right L3-L4 an d the laminectomy since MRI of October 28, 2020. The disc extrusion shown on exam has been resected. L1-2: There is mild disc bulge with tiny central annular tear and disc protrusion. Central canal and neural foramen are patent. L2-3: Disc space narrowing is noted. There is disc bulge with superimposed right paracentral disc ext rusion with inferior subligamentous migration which measures 1.3 x 0.8 x 1 cm. This results in severe narrowing of the right lateral recess. There is also facet arthrosis with ligamentous hypertrophy at this level. These findings result in severe narrowing of the central canal. Patent AP diameter canal is 3.3 mm. There is mild bilateral neural foraminal stenosis. L3-4: Postoperative findings are noted, as above. There is mild central canal stenosis. There is also mild narrowing of both neural foramen. Severe facet arthrosis is present. L4-5: Severe facet arthrosis is present. There is mild narrowing of the central canal and the neural foramen. L5-S1: Anterolisthesis is noted, as described above. The central canal is patent. There is moderate t o severe left and moderate right neural foraminal stenosis. IMPRESSION: 1. Right paracentral disc extrusion at L2-L3 with inferior subligamentous migration which results in severe narrowing of the right lateral recess. In addition, severe central canal stenosis at this leve l due to the disc extrusion, ligamentous hypertrophy and facet arthrosis. 2. Postoperative findings consistent with right L3-L4 hemilaminectomy. 3. Severe multilevel facet arthrosis. Multilevel neural foraminal stenosis, as above. 4. No change in anterolisthesis of L5 on S1 due to bilateral L5 pars defects. ACT 112: Negative or not required by law. Electronically signed by: Ziggy Tineo M.D. 12/04/2021 2:37 PM
--- NOTE | 2021-12-04 16:49 | Hospitalist Progress Note ---
Date of Service December 04, 2021 Assessment & Plan (1) Back pain: Plan: Acute on chronic back pain which is positional and radiates to the right leg, has some paraesthesias MRI confirms, will have pain management attempt an injection but due to xarelto will need to be off for a few days, if can control pain can go home and have outpt injection on wednesday holding medication on wednesday - - Pain control- Lidocaine patches, heat with K-pad, Scheduled Tylenol, initiate Gabapentin 300mg BID oxy IR for breakthrough, Morphine for severe pain, PT/OT consultation - pain this am requiring parenteral morphine, pain maynot be classic for SI issue with the thigh extension - hold further steroid dosing at this time- chronic use with side effects (previous PJP infection) (2) Rheumatoid arthritis: Plan: Continue with steroid taper -12.5 mg daily until [id number] then 10mg daily - follow up with rheumatology (3) CKD (chronic kidney disease), stage III: Plan: Stable follow avoid further nephrotoxic medicaitons hold metformin (4) GERD (gastroesophageal reflux disease): Plan: Continue PPI avoid NSAIDS with CKD as well as chronic steroid use with Xarelto (5) History of lumbar laminectomy: Plan: previous L3 laminectomy on CT (6) Diabetes mellitus, type 2: Plan: Hold metformin transition to subq aspart sliding scale insulin (7) Paroxysmal atrial fibrillation: Plan: Rate and rythm controlled at this time - continue amiodarone and Xarelto - (8) Chronic steroid use: Plan: As above for RA - continue current taper Admission and Anticipated Discharge Date Admission Date: December 04, 2021 Subjective pt has persistent pain in right posterior hip that radiates to the mid thigh underwent MRI 12/04 shows L2-3 disc protrusion with canal stenosis and facet arthrosis Review of Systems Review of Systems: Moderate distress and fatigue no headache, no visual changes no speech or swallowing issues no chest pain, pressure or palpitations no shortness of breath, cough or wheezes no abdominal pain, nausea or vomiting, diarrhea or constipation no dysuria, hematuria or frequency no focal joint pain or swelling right posterior hip pain with radiation to right thigh no bruising, bleeding or rashes no focal signs of weakness or numbness or altered sensation no complaints of anxiety or depression.. Physical Exam Physical Exam: The patient appeared well nourished and normally developed. Vital signs as documented. Head exam is normocephalic atraumatic Neck is without JVD, thyromegaly, or carotid bruits. Lungs are clear to auscultation, no focal loss of breath sounds Cardiac exam, Rhythm is regular.. No murmurs, rubs or gallops. Abdominal exam reveals normal bowel sounds, soft non tender, no masses Extremities are nonedematous and both pedal pulses are present Neurologic exam is alert and oriented, no focal loss of strength or sensation reproducible pain at right posterior hip with some radiation to to mid thigh Skin is without bruises or rashes Psychologically is without concerns for anxiety or depression.. Results & Data Results & Data ([facility]) Vital Signs (Past 12 Hours) Vital Signs Temp Pulse Resp BP Pulse Ox 12/04/21 14:53 97.9 F 81 16 107/68 96 12/04/21 07:13 98.1 F 58 L 16 137/76 100 PG Care Time/CCT Total # of Minutes Spent Total Time Spent with Patient: Total time spent is greater than 50% in coordination of care (as documented) at patient's floor/unit and/or counseling patient: Coding Level of Care Code 78852 Subseq Hosp Care Lvl 2 Diagnoses Back pain M54.9 Rheumatoid arthritis M06.9 CKD (chronic kidney disease), stage III N18.31 Chronic kidney disease stage 3 subtype: stage 3a (GFR 45-59) GERD (gastroesophageal reflux disease) K21.9 Esophagitis presence: without esophagitis History of lumbar laminectomy Z98.890 Diabetes mellitus, type 2 E11.22; N18.31 Diabetes mellitus fpc insulin use: without ferry terminal agent use Diabetes mellitus complication status: with kidney complications Diabetes mellitus complication detail: with chronic kidney disease Chronic kidney disease stage: stage 3 (moderate) Chronic kidney disease stage 3 subtype: stage 3a (GFR 45-59) Paroxysmal atrial fibrillation I48.0 Chronic steroid use (1) CKD (chronic kidney disease), stage III Chronic kidney disease stage 3 subtype: stage 3a (GFR 45-59) Qualified Code(s): N18.31 - Chronic kidney disease, stage 3a (2) GERD (gastroesophageal reflux disease) Esophagitis presence: without esophagitis Qualified Code(s): K21.9 - Gastro- esophageal reflux disease without esophagitis (3) Diabetes mellitus, type 2 Diabetes mellitus fpc insulin use: without fpc use Diabetes mellitus complication status: with kidney complications Diabetes mellitus complication detail: with chronic kidney disease Chronic kidney disease stage: stage 3 (moderate) Chronic kidney disease stage 3 subtype: stage 3a (GFR 45-59) Qualified Code(s): E11.22 - Type 2 diabetes mellitus with diabetic chronic kidney disease; N18.31 - Chronic kidney disease, stage 3a
--- NOTE | 2021-12-05 07:57 | Hospitalist Progress Note ---
Date of Service December 05, 2021 Assessment & Plan (1) Back pain: Plan: Acute on chronic back pain which is positional and radiates to the right leg, has some paraesthesias MRI confirms, will have pain management attempt an injection but due to xarelto will need to be off for a few days, if can control pain can go home and have outpt injection on wednesday holding medication on wednesday - - Pain control- Lidocaine patches, heat with K-pad, Scheduled Tylenol, initiate Gabapentin 300mg BID oxy IR for breakthrough, Morphine for severe pain, PT/OT consultation - pain this am requiring parenteral morphine, pain maynot be classic for SI issue with the thigh extension - hold further steroid dosing at this time- chronic use with side effects (previous PJP infection) (2) Rheumatoid arthritis: Plan: Continue with steroid taper -12.5 mg daily until [id number] then 10mg daily - follow up with rheumatology (3) CKD (chronic kidney disease), stage III: Plan: Stable follow avoid further nephrotoxic medicaitons hold metformin (4) GERD (gastroesophageal reflux disease): Plan: Continue PPI avoid NSAIDS with CKD as well as chronic steroid use with Xarelto (5) History of lumbar laminectomy: Plan: previous L3 laminectomy on CT (6) Diabetes mellitus, type 2: Plan: Hold metformin transition to subq aspart sliding scale insulin (7) Paroxysmal atrial fibrillation: Plan: Rate and rythm controlled at this time - continue amiodarone and Xarelto - (8) Chronic steroid use: Plan: As above for RA - continue current taper Admission and Anticipated Discharge Date Admission Date: December 04, 2021 Review of Systems Review of Systems: Moderate distress and fatigue no headache, no visual changes no speech or swallowing issues no chest pain, pressure or palpitations no shortness of breath, cough or wheezes no abdominal pain, nausea or vomiting, diarrhea or constipation no dysuria, hematuria or frequency no focal joint pain or swelling right posterior hip pain with radiation to right thigh no bruising, bleeding or rashes no focal signs of weakness or numbness or altered sensation no complaints of anxiety or depression.. Physical Exam Physical Exam: The patient appeared well nourished and normally developed. Vital signs as documented. Head exam is normocephalic atraumatic Neck is without JVD, thyromegaly, or carotid bruits. Lungs are clear to auscultation, no focal loss of breath sounds Cardiac exam, Rhythm is regular.. No murmurs, rubs or gallops. Abdominal exam reveals normal bowel sounds, soft non tender, no masses Extremities are nonedematous and both pedal pulses are present Neurologic exam is alert and oriented, no focal loss of strength or sensation reproducible pain at right posterior hip with some radiation to to mid thigh Skin is without bruises or rashes Psychologically is without concerns for anxiety or depression.. Results & Data Results & Data ([facility]) Vital Signs (Past 12 Hours) Vital Signs Temp Pulse Resp BP BP Pulse Ox O2 Del Method 12/05/21 07:44 97.2 F L 61 18 129/80 100 Room Air 12/04/21 23:11 97.7 F 63 18 118/75 99 Room Air PG Care Time/CCT Total # of Minutes Spent Total Time Spent with Patient: Total time spent is greater than 50% in coordination of care (as documented) at patient's floor/unit and/or counseling patient: Coding Diagnoses Back pain M54.9 Rheumatoid arthritis M06.9 CKD (chronic kidney disease), stage III N18.31 Chronic kidney disease stage 3 subtype: stage 3a (GFR 45-59) GERD (gastroesophageal reflux disease) K21.9 Esophagitis presence: without esophagitis History of lumbar laminectomy Z98.890 Diabetes mellitus, type 2 E11.22; N18.31 Diabetes mellitus press tender long goods insulin use: without intermediate use Diabetes mellitus complication status: with kidney complications Diabetes mellitus complication detail: with chronic kidney disease Chronic kidney disease stage: stage 3 (moderate) Chronic kidney disease stage 3 subtype: stage 3a (GFR 45-59) Paroxysmal atrial fibrillation I48.0 Chronic steroid use (1) CKD (chronic kidney disease), stage III Chronic kidney disease stage 3 subtype: stage 3a (GFR 45-59) Qualified Code(s): N18.31 - Chronic kidney disease, stage 3a (2) GERD (gastroesophageal reflux disease) Esophagitis presence: without esophagitis Qualified Code(s): K21.9 - Gastro- esophageal reflux disease without esophagitis (3) Diabetes mellitus, type 2 Diabetes mellitus intermediate insulin use: without press tender long goods use Diabetes mellitus complication status: with kidney complications Diabetes mellitus complication detail: with chronic kidney disease Chronic kidney disease stage: stage 3 (moderate) Chronic kidney disease stage 3 subtype: stage 3a (GFR 45-59) Qualified Code(s): E11.22 - Type 2 diabetes mellitus with diabetic chronic kidney disease; N18.31 - Chronic kidney disease, stage 3a
[2021-12-05] MEDS: AMIODARONE 200 MG TAB PO SCH (08:29)
[2021-12-05] MEDS: FAMOTIDINE 20 MG TAB PO SCH (08:29)
[2021-12-05] MEDS: GABAPENTIN 300 MG CAP PO SCH (08:30)
[2021-12-05] MEDS: PANTOprazole 40 MG TAB PO SCH (08:31)
[2021-12-05] MEDS: predniSONE 2.5 MG TAB PO SCH (08:31)
[2021-12-05] MEDS: FOLIC ACID 1 MG TAB PO SCH (08:31)
[2021-12-05] MEDS: RIVAROXABAN 15 MG TAB PO SCH (08:31)
[2021-12-05] MEDS: hydroCHLOROthiazide 25 MG TAB PO SCH (08:31)
[2021-12-05] MEDS: LIDOCAINE 5% 1 PATCH TD SCH (08:32)
[2021-12-05] MEDS: INSULIN ASPART PER UNIT SC SCH ×2 (08:38→12:48)
[2021-12-05] MEDS: ACETAMINOPHEN 500 MG TAB PO SCH (08:43)
--- NOTE | 2021-12-05 08:57 | Pain Management Progress Note ---
Date of Service December 05, 2021 Assessment & Plan (1) Lumbar radicular pain: (2) History of lumbar laminectomy: (3) Chronic steroid use: (4) Paroxysmal atrial fibrillation: Plan 1. MRI findings were reviewed at length with the patient. We discussed treatment options. Will recommend patient undergo a right L2-3 transforaminal KEL. Side effects versus benefits discussed. All her questions were answered. Patient elects to proceed the procedure. The procedure will be completed in the outpatient setting at pain clinic next Wednesday at 10 AM. Preprocedural paperwork will be discussed with patient and mailed to her home. All of the above was discussed with the patient's [id number] Dea as well. They did verbalize understanding. 2. Patient will need to hold her anticoagulation therapy starting tomorrow 3. Maintain gabapentin 300 mg twice daily but consider titration to 3 times daily over the next few days 4. Recommend patient maintain Oxy IR for as needed breakthrough pain Admission and Anticipated Discharge Date Admission Date: December 04, 2021 Subjective Ms. Dow is a 76-year-old white female who was admitted due to intractable low back and right lower extremity radicular pattern pain traveling into the anterior medial thigh. MRI of the lumbar spine was requested and completed yesterday which did reveal a right-sided L2-3 disc extrusion with central canal stenosis with AP diameter 3.3 mm. Patient reports that she is having persisting pain in the right low back extending into the right lateral hip and anterior medial thigh aggravated with positional change and standing/walking. She reports episodic sharp and shooting characteristic pain. Her pain is similar location and characteristic as it was yesterday without significant change. She is finding the pain medication to be helpful at diminishing the severity of her symptoms without notable side effects. She rates her current pain a 2-3/10 at its best while resting but can escalate to an 8 have a 9/10 with movement. Patient has no further constitutional complaints. She denies bowel or bladder incontinence or saddle anesthesia. She denies lower extremity paresthesia. Plan of care discussed with Dr. Meena Hays. Physical Exam Physical Exam: General: Patient lying quietly in exam room in no acute distress. Speech and thought process appropriate. Mood and affect appropriate. Cognition intact. Back/spine: Patient continues with diffuse tenderness over the right mid and lower lumbar paravertebral and SI joint region to provocative testing. Patient minimally tender throughout the gluteal region. No appreciable spasm or myoneural trigger points. Patient able to logroll towards her left without assistance for physical exam. Lower extremities: SLR positive on the right reproducing radicular distribution pain over the anterior/medial thigh and knee. Well-healed anterior surgical incision bilateral TKA. Hip is nontender with internal/external rotation. Minimally tender over the greater trochanter and throughout the thigh to direct palpation. Sensation was intact without focal deficit. Strength testing 5/5 with dorsiflexion, plantarflexion and hip flexion/extension. Neurologic: Cranial nerves grossly intact. Ambulatory function not witnessed. Results (Pain Clinic) Diagnostic Review MRI Findings: [place] [phone] Magnetic Resonance Report Patient:KORI DOW Admit Date:12/04/21 MR#:[id number] Address1:[address] [place] [address] Acct ID:[id number] Address2: Date:1945 [facility] Zip:[place] [address] Age:76 Location: Sex:F Room/Bed:[facility] Att Phy:London Renee MD Diagnosis:RIGHT HIP PAIN, FALL Mariama Phy:Dennis Alvarez MD Service Date:12/04/21 Fam Phy: Interpreting Phy:Ziggy Tineo MDAdmit Phy:Bg Lam MD Ordering Phy:London Renee MD cc: ~ MRI OF THE LUMBAR SPINE WITH AND WITHOUT CONTRAST CLINICAL HISTORY: Radicular back pain. COMPARISON STUDY: Lumbar spine MRI October 28, 2020. Lumbar spine CT December 02, 2021. Lumbar spine radiographs November 26, 2021. TECHNIQUE: Utilizing a 1.5 Akila magnet and dedicated coil, multiplanar, multiecho imaging of the lumbar spine was performed before and after uneventful IV administration of Gadavist. FINDINGS: For purposes of numbering on this exam, the L5-S1 disc space is assigned to axial image 17 of 23 of the lower axial sequences. 9 mm of anterolisthesis of L5 on S1 is similar to MRI of October 28, 2021 and due to bilateral L5 pars defects. Slight anterolisthesis of L3 on L4 and L4 on L5 is unchanged. No lumbar spine fracture is noted. No suspicious marrow replacement. Conus terminates at the mid L1 level. Paravertebral soft tissues are unremarkable. Gallbladder is distended. Gallstones are noted within the gallbladder. Appearance is similar to CT of December 02, 2021. No suspicious marrow replacement is present. No abnormal enhancement within the canal is present. Note is made of an interval right L3-L4 and the laminectomy since MRI of October 28, 2020. The disc extrusion shown on exam has been resected. L1-2: There is mild disc bulge with tiny central annular tear and disc protrusion. Central canal and neural foramen are patent. L2-3: Disc space narrowing is noted. There is disc bulge with superimposed right paracentral disc extrusion with inferior subligamentous migration which measures 1.3 x 0.8 x 1 cm. This results in severe narrowing of the right lateral recess. There is also facet arthrosis with ligamentous hypertrophy at this level. These findings result in severe narrowing of the central canal. Patent AP diameter canal is 3.3 mm. There is mild bilateral neural foraminal stenosis. L3-4: Postoperative findings are noted, as above. There is mild central canal stenosis. There is also mild narrowing of both neural foramen. Severe facet arthrosis is present. L4-5: Severe facet arthrosis is present. There is mild narrowing of the central canal and the neural foramen. L5-S1: Anterolisthesis is noted, as described above. The central canal is patent. There is moderate to severe left and moderate right neural foraminal stenosis. IMPRESSION: 1. Right paracentral disc extrusion at L2-L3 with inferior subligamentous migration which results in severe narrowing of the right lateral recess. In addition, severe central canal stenosis at this level due to the disc extrusion, ligamentous hypertrophy and facet arthrosis. 2. Postoperative findings consistent with right L3-L4 hemilaminectomy. 3. Severe multilevel facet arthrosis. Multilevel neural foraminal stenosis, as above. 4. No change in anterolisthesis of L5 on S1 due to bilateral L5 pars defects. ACT 112: Negative or not required by law. Electronically signed by: Ziggy Tineo M.D. 12/04/2021 2:37 PM Dictated:12/04/21 1418 Transcribed: 12/04/21 1434
[2021-12-05] MEDS: oxyCODONE HCL IR 5 MG TAB (IMMEDIATE RELEASE) PO PRN (12:19)
--- NOTE | 2021-12-05 16:58 | Discharge Summary ---
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 Patient comes to the [facility] today for complaints of right sided back pain that radiates down to her knee. This has been ongoing for the past 3 weeks. This started following a fall where she fell trying to throw a shirt into the corner and she fell on forward on the her knees and elbow. The pain gets worse with sitting or st anding, and has good days and bad days. She noticed that over the past 24 hours it has gotten worse. It is sharp stabbing pain that is in her right lower back and radiates to her right buttocks and down her leg with termination right above the knee. She has just been using 500mg Tylenol two tabs at home 3 times per day and Ice therapy. She is still able to get up and ambulate, let the dog out, and go into her yard and get around. She is without muscular weakness. She normally walks with a walker. In the EMD the shantetent had routine blood work performed, lumbar spine CT and abdomen and pelvis CT scan performed. L4-L5 stenosis noted. She was given 4 mg of Morphine for her pain and hospitalist was consulted for admission. Patient will be observed for pain control, will introduce multimodal pain strategy, PT/OT consultation. Patient follows with Rheumatology for her RA and has seen them in October. She is currently on a steroid taper ongoing secondary to prolonged steroid exposure at higher doses. She takes 12.5 mg daily and will down trend down to 10mg daily at [id number]. She has an appointment with Endocrinology in a month. Principal Diagnosis Radicular back pain from L2-3 HNP Discharge Exam Pt looks comfortable gross Strength and sensation to right lower leg Pt agreeable to going home Discharge Data Allergies Allergy/AdvReac Type Severity Reaction Status Date / Time Iodinated Contrast Media Allergy Intermediate Foot rash, Verified 12/02/21 14:57 swelling Sulfa (Sulfonamide Allergy Intermediate Rash, Verified 12/02/21 14:57 Antibiotics) itching sulfamethoxazole Allergy Intermediate Rash, Verified 12/02/21 14:57 itching Consultations 12/02/21 13:56 ED Decision to Admit Stat 12/03/21 13:50 Consult Pain Management Routine Ordered Studies 12/02/21 10:08 CT lumbar spine wo con Stat 12/02/21 10:10 CT abd pelvis wo con Stat 12/04/21 09:09 MRI Lumbar Spine [MR lumbar spine wo/w con] Routine Hospital Course (1) Back pain: Acute on chronic back pain which is positional and radiates to the right leg, has some paraesthesias MRI confirms right paracentral disc extrusion trusion L2-L3 with inferior subligamentous migration which results in severe narrowing of the right lateral recess. In addition severe central canal stenosis at this level due to disc extrusion ligamentous hypertrophy and facet arthrosis Current plan is to have pain management attempt an injection but due to xarelto will need to be off for a few days, we have been able to control pain, patient will go home and have outpt injection on wednesdayDecember 09 holding Xarelto started on discharge December 05 p.m. - - Pain control- Lidocaine patches, heat with K-pad, Scheduled Tylenol, initiate Gabapentin 300mg BID oxy IR for breakthrough, Morphine for severe pain, - hold further steroid dosing at this time- chronic use with side effects (previous PJP infection) (2) Rheumatoid arthritis: Continue with current steroid dosing by rheumatology - follow up with rheumatology (3) CKD (chronic kidney disease), stage III: Stable (4) GERD (gastroesophageal reflux disease): Continue PPI avoid NSAIDS with CKD as well as chronic steroid use with Xarelto (5) History of lumbar laminectomy: previous L3 laminectomy on CT by Dr. Styles (6) Diabetes mellitus, type 2: Diabetic management including metformin (7) Paroxysmal atrial fibrillation: Rate and rythm controlled at this time - continue amiodarone and hold Xarelto in the periprocedural period - (8) Chronic steroid use: As above for RA - continue current taper Total Time Total Time Spent Total Time Spent (In Minutes): It required greater than 30 minutes to prepare this patient for discharge Discharge Plan Discharge Items Patient Disposition: Home - Home Health Services Reason For Visit: RIGHT HIP PAIN, FALL Discharge Diagnosis: radicular right back pain HNP L2-3 Activity: Per Instructions section Activity Comment: Rest and recover Non-emergency contact: Primary Care Provider and Specialist Call non-emergency contact if: your symptoms worsen Follow-up/Referrals: Dennis Alvarez MD [Primary Care Provider] - 12/16/21 3:45 pm (Office is located at [address] [place] [address]) Diet: Carb Consistent or DM2 Addtl Attending Provider Instructions: Please do not take your Xarelto until instructed to resume after procedure please take pain medications and follow up with pain management next Wednesday If you cannot tolerate your pain at home return to the hospital Please take a medication to help prevent consitipation such as senna or miralax, generic is ok you may use heat or cool to help with pain control also Pending Studies at Discharge: No Stand-Alone Forms: [facility] [email or web address], Opioid Pain Management, Smoking Cessation Medications and DC Order Prescriptions: New gabapentin 300 mg Capsule 300 mg PO BID Qty: 60 0RF oxycodone 5 mg Tablet 10 mg PO Q4H PRN (Reason: pain (scale score 4-6)) Qty: 30 0RF Continued folic acid 1 mg tablet 1 mg PO DAILY Qty: 90 3RF famotidine 40 mg tablet 40 mg PO BID Qty: 180 3RF lisinopril 10 mg tablet 10 mg PO DAILY Qty: 30 2RF hydrochlorothiazide 25 mg tablet 25 mg PO DAILY lidocaine 5 % adhesive patch,medicated 1 patch topical DAILY PRN (Reason: Pain) Rx Instructions: leave on most painful area for up to 12 hrs metformin 500 mg tablet 500 mg PO DAILY Hold Instructions: Sugar acceptable Rx Instructions: ON HOLD ondansetron HCl 4 mg tablet 4 mg PO Q8H PRN (Reason: nausea and vomiting) Qty: 30 0RF calcium carbonate-vitamin D3 [Calcium 600 + D(3)] 600 mg(1,500mg) -400 unit Tablet 1 tab PO QAM potassium gluconate 595 mg (99 mg) Tablet 99 mg PO QAM amiodarone 200 mg tablet 100 mg PO DAILY Qty: 90 3RF pantoprazole 40 mg Tablet,Delayed Release (Dr/Ec) 40 mg PO BID Qty: 0 0RF prednisone 5 mg tablet 12.5 mg PO DAILY Changed acetaminophen [Tylenol Extra Strength] 500 mg Tablet 1,000 mg PO TID Qty: 90 0RF Discontinued Xarelto 15 mg tablet 15 mg PO QDD Rx Instructions: must administer with evening meal Discharge Orders: Discharge Order (Routine); Ordered 12/05/21 Ordered By: London Renee Admission Data Admit Date/Time: 12/04/21 13:59 Attending Provider: London Renee Admit Provider: Bg Lam Primary Care Provider: Dennis Alvarez Other Providers: Bg Lam ; Nick Linares Other Interventions: Discharge Summary Assessment (RN) Last Done: 12/05/21 10:38 Coding Level of Care Code D/C DAY MANAGEMENT >30 MINS Diagnoses Back pain M54.9 Rheumatoid arthritis M06.9 CKD (chronic kidney disease), stage III N18.31 Chronic kidney disease stage 3 subtype: stage 3a (GFR 45-59) GERD (gastroesophageal reflux disease) K21.9 Esophagitis presence: without esophagitis History of lumbar laminectomy Z98.890 Diabetes mellitus, type 2 E11.22; N18.31 Diabetes mellitus termite technician insulin use: without termite technician use Diabetes mellitus complication status: with kidney complications Diabetes mellitus complication detail: with chronic kidney disease Chronic kidney disease stage: stage 3 (moderate) Chronic kidney disease stage 3 subtype: stage 3a (GFR 45-59) Paroxysmal atrial fibrillation I48.0 Chronic steroid use
== END 2021-12-05 12:58 | disposition home health service (06) | DRG 552 ==
LOC: ED 09:49 → EDINP 09:49 → SUATTDRO 14:29 → EDINP 16:55 → 3E 21:45
DX: M35.3 Polymyalgia rheumatica; E27.40 Unspecified adrenocortical insufficiency; Z79.52 Long term (current) use of systemic steroids; Z91.81 History of falling; I48.0 Paroxysmal atrial fibrillation; D84.821 Immunodeficiency due to drugs; Z68.32 Body mass index [BMI] 32.0-32.9, adult; K21.9 Gastro-esophageal reflux disease without esophagitis; Z91.041 Radiographic dye allergy status; Z79.01 Long term (current) use of anticoagulants; Z87.891 Personal history of nicotine dependence; N18.30 Chronic kidney disease, stage 3 unspecified; E11.22 Type 2 diabetes mellitus with diabetic chronic kidney disease; T38.0X5A Adverse effect of glucocorticoids and synthetic analogues, initial encounter; I12.9 Hypertensive chronic kidney disease with stage 1 through stage 4 chronic kidney disease, or unspecified chronic kidney disease; M51.16 Intervertebral disc disorders with radiculopathy, lumbar region; M06.9 Rheumatoid arthritis, unspecified; G89.29 Other chronic pain; Z79.84 Long term (current) use of oral hypoglycemic drugs; G47.30 Sleep apnea, unspecified; Z87.01 Personal history of pneumonia (recurrent); E66.01 Morbid (severe) obesity due to excess calories; Z88.2 Allergy status to sulfonamides; Z79.899 Other long term (current) drug therapy

== ENCOUNTER 2021-12-19 13:56 | Inpatient (IN) ==
[2021-12-19] MEDS ORDERED: MoRPHine SULFATE 4 MG/ML 1 ML CARP\\VIAL IV STA (14:42)
--- NOTE | 2021-12-19 14:57 | Emergency Department Note ---
Impression & Plan Lumbar disc herniation with radiculopathy, Ambulatory dysfunction ED Provider Note CHIEF COMPLAINT: Lower back pain HISTORY OF PRESENT ILLNESS: Cecilia Salazar is a 76 year old female with history of adrenal deficiency, CKDIII, DM2, PMR, paroxysmal a-fib (Eliquis currently being held), lumbar radiculopathy among others below who presents to the Emergency Department for evaluation of pain radiating across her lower back into her right hip and anterior thigh with associated numbness/tingling which was exacerbated yesterday and has been worsening since that time. Of note, the patient was rec ently admitted to the hospital at the end of last month for pain control and ambulatory dysfunction secondary to degenerative changes to her lumbar spine with radiculopathy. Following her stay, she was discharged to home with pain medication and gabapentin, which she does state was making her symptoms more tolerable. She then she followed up with pain management and had an epidural steroid injection on 12/09/21 which she states also helped her pain. Following the injection, she states that she was doing relatively well with the pain medications and gabapentin that she was prescribed, however, yesterday her symptoms were exacerbated and have since become much worse as she no longer has relief with her pain medication and can no longer stand up or ambulate secondary to her discomfort. Per granddaughter at bedside, she did attempt to help the patient up today but as she was not able to due to her severe pains, EMS was called and brought her to the ED for further evaluation this afternoon. C urrently, the patient is crying in severe, 10/10 pain which was not relieved after taking Tylenol, gabapentin and hydrocodone today. She does associate numbness/tingling and weakness to her RLE, but denies saddle paresthesias or loss of continence of her bowels/bladder. No radiation of pain into her upper back, neck or upper extremities. No recent fevers/chills, respiratory difficulties, chest pain, nausea, vomiting or any other acute complaints. Per granddaughter, the patient did suffer a "minor fall" about 1.5 weeks ago and sustained small skin tears to her arms which have been tended to by nursing. She did not hit her head or appear to suffer any additional injuries during that episode. She has not been taking Eliquis or other anticoagulants/antiplatelets since getting the pain injection last week. REVIEW OF SYSTEMS: 10 systems were reviewed and were negative unless otherwise stated in HPI as above PHYSICAL EXAM: VITALS: Vitals are noted on the nurse's note and reviewed by myself. Vital signs stable. General: Resting in bed, crying, complaining of severe back and right thigh pain HEENT: Normocephalic, atraumatic, PERRL, EOMI, mucous membranes moist, oropharynx clear Neck: No mid-line or paraspinal cervical tenderness, ROM intact without pain Resp: Good inspiratory effort on room air, lung sounds clear bilaterally CV: Irregularly irregular rate and rhythm, peripheral pulses palpated Back: Tender to palpation over the midline lumbar spine and right paraspinal musculature into the right hip, no obvious step-offs or deformities Abd: Mildly distended but soft, non-tender to palpation MSK/integumentary: Ecchymosis to the anterior right thigh (patient states she has been punching herself to try to alleviate pain). Notes pain to the anterior right thigh into the knee, not elicited to palpation. Strength 4/5 with right hip flexion, otherwise 5/5 and sensation intact throughout Neuro: Awake, alert and oriented x 3, interacting and answering questions appropriately Differential diagnosis includes musculoskeletal, disc herniation, fracture, metastatic disease, cord compression, discitis, sciatica, cauda equina, infection, as well as other pathologies. EMERGENCY DEPARTMENT COURSE: Physical exam and history were performed. Nursing triage notes, EMR, and med ication list were personally reviewed. Patient is a 76 year old female with history of adrenal deficiency, CKDIII, DM2, PMR, paroxysmal a-fib (Eliquis currently being held), lumbar radiculopathy among others below who presents to the Emergency Department for evaluation of pain radiating across her lower back into her right hip and anterior thigh with associated numbness/tingling which was exacerbated yesterday and has been worsening since that time. Additional history as described above. See physical exam as noted above. The patient was offered pain medication. IV access was established and she was given morphine 4 mg. Previous charts were reviewed. She did recently have an MRI taken of her lumbar spine 2 weeks ago which did show right paracentral disc extrusion at L2-L3 with inferior subligamentous migration resulting in severe narrowing of the right lateral recess. In addition, severe central canal stenosis at this level due to disc extrusion, ligamentous hypertrophy and facet arthrosis. Severe multilevel facet arthrosis and multilevel neural foraminal stenosis. It appears that the patient has failed outpatient therapy and now has ambulatory dysfunction secondary to her severe pain. I do feel that she would benefit from continued management in the hospital for continued pain control and likely additional consultation from pain management or orthopedic spine who she has seen in the past. I did contact Dr. Shetty with the [facility] group and he agreed to evaluate the patient. The patient verbalized understanding and agreement with this plan. The chart was completed utilizing Eligible Voice Recognition Software. Grammatical errors, random word insertions, pronoun errors, and incomplete sentences are an occasional consequence of this system due to software limitations, ambient noise, and hardware issues. Any formal questions or con cerns about the content, text, or information contained within the body of this dictation should be directly addressed to the provider for clarification. Past Med/Surg History Medical History Abdominal pain, acute, bilateral lower quadrant Acute proctitis Anemia Celiac artery stenosis Chronic shoulder pain Pain started after [facility] > per patient, PCP started her on prednisone for this which she they have been trying to slowly taper off of CKD (chronic kidney disease), stage III Diabetes mellitus, type 2 NIDDM Elevated lactic acid level Glaucoma Hypertension Lumbar radicular pain Morbid obesity Paroxysmal atrial fibrillation on Xarelto PMR (polymyalgia rheumatica) Rheumatoid arthritis Skin tear of right forearm without complication Sleep apnea CPAP Surgical History Cyst Scalp cysts excision (12/12/18): Grade view 1, MAC#3, ETT 7.5 at [facility] H/O colonoscopy History of ankle surgery Right History of carpal tunnel release Right History of hernia repair Laparoscopic hernia x2 History of knee replacement procedure of right knee R/L History of laminectomy Dr. Styles History of left knee replacement + subsequent Left knee I&D poly exchange History of lumpectomy of left breast benign History of revision of total knee arthroplasty R/L History of surgical procedure on eye proper using laser History of tooth extraction Hx of hysterectomy Hx of left cataract extraction Hx of right cataract extraction Family History Sister Breast cancer Father Heart disease Other No family history of adverse response to anesthesia Denies family history of Ovarian cancer Prostate cancer Myocardial infarction Lung cancer Colorectal cancer Social History Smoking Status: Never smoker Age Started Using Tobacco: 5; Age Quit Using Tobacco: 25; packs per day: 1; Years Smoked: 24; Second Hand Exposure: No; Hx Alcohol Use: No Hx Substance Use: No Preferred Language: Guyanese Communication Ability: Effective Visual Impairment: Limited Hearing Ability: Normal Dish Cloth Inspector Required: No Beliefs That Will Affect Care: None marital status: Current Living Situation: Family Current Living Situation Comment: lives with and sons come over to help current occupational status: retired How many Children do You have: 5 Feels Safe at Home: Yes Childhood Exposure to Second-Hand Smoke: Yes caffeine: No during the past year weight has: decreased > 10 lbs Dental Care, Regularly: No Physical Activity Frequency: Does not Exercise Seatbelt Use: always Sunscreen Use: No Do you think of yourself as: straight/heterosexual Gender Identity: Female Assistive Devices: Walker and Wheelchair Allergies Allergies Allergy/AdvReac Type Severity Reaction Status Date / Time Iodinated Contrast Media Allergy Intermediate Foot rash, Verified 12/19/21 19:04 swelling Sulfa (Sulfonamide Allergy Intermediate Rash, Verified 12/19/21 19:04 Antibiotics) itching sulfamethoxazole Allergy Intermediate Rash, Verified 12/19/21 19:04 itching Home Meds Home Medications Medication Instructions Recorded Confirmed calcium carbonate 600 mg-vitamin 1 tab PO QAM 01/25/20 12/19/21 D3 10 mcg (400 unit) tablet (Calcium 600 + D(3)) potassium gluconate 595 mg (99 mg) 99 mg PO QAM 01/25/20 12/19/21 tablet hydrochlorothiazide 25 mg tablet 25 mg PO DAILY 10/02/21 12/19/21 lidocaine 5 % topical patch 1 patch topical DAILY PRN Pain 10/02/21 12/19/21 amiodarone 200 mg tablet 100 mg PO DAILY 12/16/21 12/19/21 prednisone 5 mg tablet 10 mg PO DAILY 12/16/21 12/19/21 acetaminophen 500 mg tablet 500 mg PO TID FEVER/PAIN 12/19/21 12/19/21 (Tylenol Extra Strength) Previous Rx's Medication Instructions Recorded folic acid 1 mg tablet 1 mg PO DAILY #90 tabs 06/05/21 ondansetron HCl 4 mg tablet 4 mg PO Q8H PRN nausea and 10/02/21 vomiting #30 tabs famotidine 40 mg tablet 40 mg PO BID #180 tabs 10/27/21 lisinopril 10 mg tablet 10 mg PO DAILY #30 tabs 11/05/21 gabapentin 300 mg capsule 300 mg PO TID #90 caps 12/09/21 hydrocodone 5 mg-acetaminophen 325 1 tab PO Q8H PRN pain #30 tabs 12/09/21 mg tablet Results & Data (ED) Vital Signs Vital Signs - 24 hr 12/19/21 14:03 12/19/21 17:00 Temperature 37.0 C Temperature Source Oral Pulse Rate 82 Pulse Rate [Apical] 64 Pulse Rhythm Regular Pulse Strength Normal Respiratory Rate 20 18 Respiratory Effort / Characteristics Non-Labored Spontaneous Non-Labored Respiratory Depth Normal Normal Respiratory Pattern Regular Blood Pressure 132/87 Blood Pressure [Right Arm] 135/86 Blood Pressure Mean 102 Blood Pressure Mean [Right Arm] 102 Blood Pressure Position Sitting Pulse Oximetry 96 99 Oxygen Delivery Method Room Air Room Air Sepsis Recent Fever Within 48 Hours No Sepsis New/Unexplained Change in Mental Status No Sepsis Action Taken by Nursing No Action Required Laboratory Data Result diagrams: 12/19/21 16:55 12/19/21 16:55 Lab Results 12/19/21 12/19/21 12/19/21 Range/Units 16:25 16:55 16:55 WBC 10.97 H (4.8-10.8) K/ul RBC 4.03 (3.93-5.22) M/uL Hgb 11.6 L (12.0-16.0) g/dl Hct 35.7 (34.1-44.9) % MCV 88.6 (80.0-100.0) fL MCH 28.8 (25.0-34.0) pg MCHC 32.5 (32.0-36.0) g/dL RDW Std Deviation 47.3 H (36.4-46.3) fL RDW Coeff of Tiffany 14.4 (11.5-14.5) % Plt Count 251 (130-400) K/uL MPV 9.4 (9.4-12.3) fL Immature Gran % (Auto) 0.9 % Neut % (Auto) 81.9 % Lymph % (Auto) 10.3 % [place] % (Auto) 6.2 % Eos % (Auto) 0.2 % Baso % (Auto) 0.5 % Neut # (Auto) 8.98 H (1.4-6.5) K/uL Lymph # (Auto) 1.13 L (1.2-3.4) K/uL [place] # (Auto) 0.68 (0.24-0.82) K/uL Eos # (Auto) 0.02 (0-0.50) K/uL Baso # (Auto) 0.06 (0-0.2) K/uL Immature Gran # (Auto) 0.10 H (0.00-0.02) K/uL Sodium 139 (136-145) mmol/L Potassium 3.6 (3.5-5.1) mmol/L Chloride 104 (98-107) mmol/L Carbon Dioxide 28 (21-32) mmol/L Anion Gap 7 (3-11) BUN 37 H (6-23) mg/dl Creatinine 1.08 (0.6-1.2) mg/dl Est Cr Clr Drug Dosing 51.2 ml/min Est GFR ( Amer) 57.7 ml/min Est GFR (Non-Af Amer) 49.8 ml/min BUN/Creatinine Ratio 34.3 H (10-20) Glucose 99 (70-99(Fasting)) mg/dl Calcium 8.8 (8.5-10.1) mg/dl Total Bilirubin 0.5 (0.2-1.0) mg/dl AST 28 (13-39) U/L ALT 39 (7-52) U/L Alkaline Phosphatase 83 (34-104) U/L Total Protein 5.4 L (6.0-8.3) gm/dl Albumin 3.1 L (3.4-5.0) gm/dl Globulin 2.3 L (2.5-4.0) gm/dl Albumin/Globulin Ratio 1.3 (0.9-2) SARS-CoV-2, RNA, NAAT NEGATIVE (NEGATIVE) Administered Medications Discontinued Medications Morphine Sulfate (Morphine Sulfate 4 Mg/Ml 1 Ml Carp\\Vial) 4 mg IV NOW STA Stop: 12/19/21 14:43 Last Admin: 12/19/21 15:06 Dose: 4 mg Documented By: BETO Morphine Sulfate (Morphine Sulfate 2 Mg/Ml Carp) 1 mg IV NOW STA Stop: 12/19/21 18:20 Last Admin: 12/19/21 18:48 Dose: 1 mg Documented By: BETO Discharge Plan Visit Data Chief Complaint: Back Injury/Pain Stated Complaint: LOWER BACK PAIN ED Provider: Santiago Polo ED Midlevel Provider: Kenia Stokes Discharge Problem: Lumbar disc herniation with radiculopathy, Ambulatory dysfunction Forms Stand Alone Forms: [facility] Prescriptions Prescriptions: No Action gabapentin 300 mg capsule 300 mg PO TID Qty: 90 5RF hydrocodone-acetaminophen 5-325 mg tablet 1 tab PO Q8H PRN (Reason: pain) Qty: 30 0RF folic acid 1 mg tablet 1 mg PO DAILY Qty: 90 3RF famotidine 40 mg tablet 40 mg PO BID Qty: 180 3RF lisinopril 10 mg tablet 10 mg PO DAILY Qty: 30 2RF hydrochlorothiazide 25 mg tablet 25 mg PO DAILY lidocaine 5 % adhesive patch,medicated 1 patch topical DAILY PRN (Reason: Pain) Rx Instructions: leave on most painful area for up to 12 hrs ondansetron HCl 4 mg tablet 4 mg PO Q8H PRN (Reason: nausea and vomiting) Qty: 30 0RF amiodarone 200 mg tablet 100 mg PO DAILY calcium carbonate-vitamin D3 [Calcium 600 + D(3)] 600 mg(1,500mg) -400 unit Tablet 1 tab PO QAM potassium gluconate 595 mg (99 mg) Tablet 99 mg PO QAM prednisone 5 mg tablet 10 mg PO DAILY Rx Instructions: will be 10 mg until Dec, then will be reduced to 7.5mg daily acetaminophen [Tylenol Extra Strength] 500 mg tablet 500 mg PO TID Referrals Referrals: Dennis Alvarez MD [Primary Care Provider] -
--- NOTE | 2021-12-19 16:23 | Emergency Department Note ---
ED Visit Note I was consulted by the Advanced Practice Provider, Estela Stokes PA-C. I saw the patient personally and performed a substantive portion of the visit. This includes aspects of the HPI, MDM, diagnostic interpretations, and disposition/plan. Patient was seen due to concern for recurrence of back pain and was admitted for pain management and ambulatory dysfunction. .
--- NOTE | 2021-12-19 16:42 | History & Physical Report ---
Date of Service December 19, 2021 Assessment & Plan (1) Lumbar radicular pain: Plan: Acute on chronic low back pain, history of L3 laminectomy and epidural steroid injection - MRI 12/04/21:1. Right paracentral disc extrusion at L2-L3 with inferior subligamentous migration which results in severe narrowing of the right lateral recess. In addition, severe central canal stenosis at this level due to the disc extrusion, ligamentous hypertrophy and facet arthrosis.2. Postoperative findings consistent with right L3-L4 hemilaminectomy.3. Severe multilevel facet arthrosis. Multilevel neural foraminal stenosis, as above.4. No change in anterolisthesis of L5 on S1 due to bilateral L5 pars defects. Patient with severe pain limiting ambulation which did not have durable relief following epidural steroid injection Pain management consulted, however given patient's lack of response may need orthopedic intervention. Patient has followed with Dr. Styles in the past. Consulted. No saddle anesthesia/retention at time of assessment. Does get shooting pain which stops at her right knee Lidocaine patch K pad alternating with lidocaine Scheduled Tylenol, continue gabapentin Scaled scale morphine ordered for breakthrough Pain management consulted. Patient has considered interventions with Dr. Styles but wanted to try the epidural injection first. Given that this has not given her long-term response, she would like to have reevaluation by orthospine and notes that she is completely unable to ambulate at present due to her pain PT/OT consulted CKD BMP pending at time of admission pAfib - Xarelto held post injection - In sinus, well contolled on Amio no recent afib GERD Continue Protonix No NSAIDs Pepcid twice daily as needed as needed Xarelto held following pain injection above Type 2 diabetes mellitus Prviously on metformin, patient no longer on any home antilipemics with last A1c of 5.1% We will follow BSG's, update A1c, if persistently hyperglycemic above 140 add SSI Diabetic diet, glucose checks AC/at bedtime Hypertension Chlorothiazide Lisinopril held in case any predental procedures recommended on evaluation BMP pending, if GORDY hold AUNG and renally adjust medications DVT prophylaxis: SCDs, defer pharmacal prophylaxis due to history of epidural injection CODE STATUS: DNR/DNI, confirmed with patient Disposition: Medical surgical, if any tachycardia obtain EKG given history of A. fib and transfer to telemetry. Patient has been in sinus well controlled on amnio Diet: DM 2, n.p.o. midnight if any procedures anticipate (2) Lumbar disc herniation with radiculopathy: (3) HLD (hyperlipidemia): (4) History of lumbar laminectomy: (5) DJD (degenerative joint disease): (6) Diabetes mellitus, type 2: (7) CKD (chronic kidney disease), stage III: (8) Paroxysmal atrial fibrillation: History of Present Illness Primary Care Provider: Dennis Alvarez MD Cecilia is a 76-year-old female with a history of CKD 3, DM 2, PMR, paroxysmal A. fib with Eliquis on hold, lumbar radiculopathy who presented with worsening pain. She had had improvement in her pain following pain injections with pain management, but has had pain rating across her right hip and thigh with numbness and tingling which is acutely worsened from its baseline for approximately 1 day. Patient did have a fall about 10 days ago and had small skin tears on her arm, but did not hit her head. Patient did have an epidural steroid injection 12/09/2021 with subsequent improvement and was doing well, and feels her gabapentin was also helping up until yesterday at which time the relief wore off and her symptoms returned. She is unable to ambulate due to her pain. 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 Rates pain as 10/10. IMproved slightly with morphine 4mg and feels pain is still very severe but tolerable after ER reassessed. At bedside patient reports her pain has diminished to 1-2/10 after morphine and she is okay at rest, but any movement whatsoever because of severe spasming pain which is unbearable to her has seen Stephani in the past and was avoiding surgery, was hoping steroid injection would defer the need for this. No saddle anesthesia. No bowel incontinence. No urinary retention. No fever/chills/sweats/nausea/vomiting. Denies lightheadedness, dizziness, syncope, presyncope, chest pain, chest pressure. MRI 12/04/21:1. Right paracentral disc extrusion at L2-L3 with inferior subligamentous migration which results in severe narrowing of the right lateral recess. In addition, severe central canal stenosis at this level due to the disc extrusion, ligamentous hypertrophy and facet arthrosis.2. Postoperative findings consistent with right L3-L4 hemilaminectomy.3. Severe multilevel facet arthrosis. Multilevel neural foraminal stenosis, as above.4. No change in anterolisthesis of L5 on S1 due to bilateral L5 pars defects. Medical History: Reviewed Medications: Reviewed. Last took this morning. Is no longer on antilipemics. Is still on prednisone 10 mg daily for a period Surgical History: Reviewed Allergies: Reviewed Social History: No tobacco or alcohol use Code Status: DNR/DNI Allergies Allergy/AdvReac Type Severity Reaction Status Date / Time Iodinated Contrast Media Allergy Intermediate Foot rash, Verified 12/16/21 16:10 swelling Sulfa (Sulfonamide Allergy Intermediate Rash, Verified 12/16/21 16:10 Antibiotics) itching sulfamethoxazole Allergy Intermediate Rash, Verified 12/16/21 16:10 itching Home Medications Medication Instructions Recorded Confirmed Type calcium carbonate 600 mg-vitamin 1 tab PO QAM 01/25/20 12/16/21 History D3 10 mcg (400 unit) tablet (Calcium 600 + D(3)) potassium gluconate 595 mg (99 mg) 99 mg PO QAM 01/25/20 12/16/21 History tablet folic acid 1 mg tablet 1 mg PO DAILY #90 tabs 06/05/21 12/16/21 Rx hydrochlorothiazide 25 mg tablet 25 mg PO DAILY 10/02/21 12/16/21 History lidocaine 5 % topical patch 1 patch topical DAILY PRN Pain 10/02/21 12/16/21 History ondansetron HCl 4 mg tablet 4 mg PO Q8H PRN nausea and 10/02/21 12/16/21 Rx vomiting #30 tabs famotidine 40 mg tablet 40 mg PO BID #180 tabs 10/27/21 12/16/21 Rx lisinopril 10 mg tablet 10 mg PO DAILY #30 tabs 11/05/21 12/16/21 Rx acetaminophen 500 mg tablet 1,000 mg PO TID FEVER/PAIN #90 tabs 12/05/21 12/16/21 Rx (Tylenol Extra Strength) gabapentin 300 mg capsule 300 mg PO TID #90 caps 12/09/21 12/16/21 Rx hydrocodone 5 mg-acetaminophen 325 1 tab PO Q8H PRN pain #30 tabs 12/09/21 12/16/21 Rx mg tablet amiodarone 200 mg tablet 100 mg PO DAILY 12/16/21 History prednisone 5 mg tablet 10 mg PO DAILY 12/16/21 12/16/21 History Past Med/Surg History Medical History Abdominal pain, acute, bilateral lower quadrant Acute proctitis Anemia Celiac artery stenosis Chronic shoulder pain CKD (chronic kidney disease), stage III Diabetes mellitus, type 2 Elevated lactic acid level Glaucoma Hypertension Lumbar radicular pain Morbid obesity Paroxysmal atrial fibrillation PMR (polymyalgia rheumatica) Rheumatoid arthritis Skin tear of right forearm without complication Sleep apnea Surgical History Cyst H/O colonoscopy History of ankle surgery History of carpal tunnel release History of hernia repair History of knee replacement procedure of right knee History of laminectomy History of left knee replacement History of lumpectomy of left breast History of revision of total knee arthroplasty History of surgical procedure on eye proper using laser History of tooth extraction Hx of hysterectomy Hx of left cataract extraction Hx of right cataract extraction Family History Sister Breast cancer Father Heart disease Other No family history of adverse response to anesthesia Denies family history of Ovarian cancer Prostate cancer Myocardial infarction Lung cancer Colorectal cancer Social History Smoking Status: Never smoker Age Started Using Tobacco: 5; Age Quit Using Tobacco: 25; packs per day: 1; Years Smoked: 24; Second Hand Exposure: No; Hx Alcohol Use: No Hx Substance Use: No Preferred Language: Libyan Communication Ability: Effective Visual Impairment: Limited Hearing Ability: Normal Landmen Required: No Beliefs That Will Affect Care: None marital status: Current Living Situation: Family Current Living Situation Comment: lives with and sons come over to help current occupational status: retired How many Children do You have: 5 Feels Safe at Home: Yes Childhood Exposure to Second-Hand Smoke: Yes caffeine: No during the past year weight has: decreased > 10 lbs Dental Care, Regularly: No Physical Activity Frequency: Does not Exercise Seatbelt Use: always Sunscreen Use: No Do you think of yourself as: straight/heterosexual Gender Identity: Female Assistive Devices: Walker and Wheelchair Review of Systems Review of Systems: All systems reviewed & are unremarkable except as noted in Subjective Physical Exam Physical Exam: General: A&Ox3. NAD. Cooperative. HEENT: Atraumatic, normocephalic. Vision and hearing intact Pulm: CTAB A&P. -wheezes, -rales, -rhonchi. Symmetrical chest rise. No increase in work of breathing. No respiratory distress. Cardiac: RRR, -mrg. Radial pulses intact and symmetrical. Abdominal: Nontender, nondistended, soft. BS present. 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 Sensation soft touch intact in hands and feet and proximal thigh bilaterally without asymmetry. Hip flexion testing and right leg limited by extreme exacerbation of pain on attempted movement. Strength exam limited by spasms of pain which radiate from the low back into the right leg and stops at the knee. No saddle anesthesia. Cap refill brisk in feet bilaterally Results & Data Results & Data ([facility]) Vital Signs (Past 12 Hours) Vital Signs Temp Pulse Resp BP Pulse Ox O2 Del Method 12/19/21 14:03 37.0 C 82 20 132/87 96 Room Air PG Care Time/CCT Total # of Minutes Spent Total Time Spent with Patient: Total time spent is greater than 50% in coordination of care (as documented) at patient's floor/unit and/or counseling patient: Coding Level of Care Code INT OBSERVATION CARE 50M LVL 2 Diagnoses Lumbar radicular pain M54.16 Lumbar disc herniation with radiculopathy M51.16 HLD (hyperlipidemia) E78.5 Hyperlipidemia type: unspecified History of lumbar laminectomy Z98.890 DJD (degenerative joint disease) M19.90 Diabetes mellitus, type 2 E11.22; N18.31 Diabetes mellitus intermediate insulin use: without intermediate use Diabetes mellitus complication status: with kidney complications Diabetes mellitus complication detail: with chronic kidney disease Chronic kidney disease stage: stage 3 (moderate) Chronic kidney disease stage 3 subtype: stage 3a (GFR 45-59) CKD (chronic kidney disease), stage III N18.31 Chronic kidney disease stage 3 subtype: stage 3a (GFR 45-59) Paroxysmal atrial fibrillation I48.0 (1) HLD (hyperlipidemia) Hyperlipidemia type: unspecified Qualified Code(s): E78.5 - Hyperlipidemia, unspecified (2) Diabetes mellitus, type 2 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
[2021-12-19 17:11] LABS: Hematocrit (blood only) 35.7 % (34.1-44.9); Hemoglobin 11.6 g/dl (12.0-16.0); Mean Corpuscular Hemoglobin 28.8 pg (25.0-34.0); Mean Corpuscular Hgb Conc 32.5 g/dL (32.0-36.0); Mean Corpuscular Volume 88.6 fL (80.0-100.0); Mean Platelet Volume 9.4 fL (9.4-12.3); Platelet Count 251 K/uL (130-400); RDW Coefficient of Variation 14.4 % (11.5-14.5); RDW Standard Deviation 47.3 fL (36.4-46.3); Red Blood Count 4.03 M/uL (3.93-5.22); White Blood Count 10.97 K/ul (4.8-10.8)
[2021-12-19 17:26] LABS: Basophils # (auto) 0.06 K/uL (0-0.2); Basophils % (auto) 0.5 %; Eosinophils # (auto) 0.02 K/uL (0-0.50); Eosinophils % (auto) 0.2 %; Immature Granulocytes % (auto) 0.9 %; Lymphocytes # (auto) 1.13 K/uL (1.2-3.4); Lymphocytes % (auto) 10.3 %; Monocytes # (auto) 0.68 K/uL (0.24-0.82); Monocytes % (auto) 6.2 %; Neutrophils # (auto) 8.98 K/uL (1.4-6.5); Neutrophils % (auto) 81.9 %
[2021-12-19 17:31] LABS: Albumin Globulin Ratio 1.3 (0.9-2); Albumin Level 3.1 gm/dl (3.4-5.0); BUN Creatinine Ratio 34.3 (10-20); Bilirubin,Total 0.5 mg/dl (0.2-1.0); Calcium 8.8 mg/dl (8.5-10.1); Creatinine Clr Calc Pharmacy 51.2 ml/min; Est GFR (African American) 57.7 ml/min; Est GFR (Non-African American) 49.8 ml/min; Globulin 2.3 gm/dl (2.5-4.0); Potassium 3.6 mmol/L (3.5-5.1); Total Protein 5.4 gm/dl (6.0-8.3)
[2021-12-19] MEDS ORDERED: MoRPHine SULFATE 2 MG/ML CARP IV STA (18:19)
[2021-12-19] MEDS ORDERED: DEXTROSE 50% 50 ML SYRINGE IV PRN (23:05)
[2021-12-19] MEDS ORDERED: MoRPHine SULFATE 2 MG/ML CARP IV PRN (23:05)
[2021-12-19] MEDS ORDERED: CARBOHYDRATES FOR HYPOGLYCEMIA PO PRN (23:05)
[2021-12-19] MEDS ORDERED: GLUCOSE 40% GEL 15 GM TUBE PO PRN (23:05)
[2021-12-19] MEDS ORDERED: GLUCAGON FOR INJ 1 MG VIAL SQ PRN (23:05)
[2021-12-19] MEDS ORDERED: HYDROCODONE/ACETAMOPHEN 5/325MG TAB PO PRN (23:05)
[2021-12-19] MEDS ORDERED: MoRPHine SULFATE 4 MG/ML 1 ML CARP\\VIAL IV PRN (23:05)
[2021-12-19] MEDS ORDERED: GLUCOSE 10 TAB/TUBE PO PRN (23:05)
[2021-12-19] MEDS ORDERED: MoRPHine SULFATE 4 MG/ML 1 ML CARP\\VIAL ONE (23:08)
[2021-12-20] MEDS: GABAPENTIN 300 MG CAP PO SCH ×4 (00:12→20:00)
[2021-12-20] MEDS: FAMOTIDINE 40 MG TABLET PO SCH ×3 (00:12→20:00)
[2021-12-20] MEDS: ACETAMINOPHEN 325 MG TAB PO SCH ×7 (00:12→23:03)
[2021-12-20] MEDS: LIDOCAINE 5% 1 PATCH TD SCH ×2 (00:13→20:00)
[2021-12-20] MEDS: hydroCHLOROthiazide 25 MG TAB PO SCH (08:35)
[2021-12-20] MEDS: FOLIC ACID 1 MG TAB PO SCH (08:35)
[2021-12-20] MEDS: predniSONE 10 MG TABLET PO SCH (08:35)
[2021-12-20] MEDS: CALCIUM 600MG + VIT D 400 IU TAB PO SCH (08:35)
[2021-12-20] MEDS: AMIODARONE 200 MG TAB PO SCH (08:36)
[2021-12-20 08:41] LABS: Basophils # (auto) 0.05 K/uL (0-0.2); Basophils % (auto) 0.5 %; Eosinophils # (auto) 0.12 K/uL (0-0.50); Eosinophils % (auto) 1.1 %; Hematocrit (blood only) 34.5 % (34.1-44.9); Immature Granulocytes # (auto) 0.12 K/uL (0.00-0.02); Immature Granulocytes % (auto) 1.1 %; Lymphocytes # (auto) 1.92 K/uL (1.2-3.4); Lymphocytes % (auto) 17.9 %; Mean Corpuscular Hemoglobin 28.8 pg (25.0-34.0); Mean Corpuscular Hgb Conc 31.9 g/dL (32.0-36.0); Mean Corpuscular Volume 90.3 fL (80.0-100.0); Mean Platelet Volume 9.1 fL (9.4-12.3); Monocytes % (auto) 9.3 %; Neutrophils # (auto) 7.49 K/uL (1.4-6.5); Neutrophils % (auto) 70.1 %; Platelet Count 263 K/uL (130-400); RDW Coefficient of Variation 14.6 % (11.5-14.5); RDW Standard Deviation 47.8 fL (36.4-46.3); Red Blood Count 3.82 M/uL (3.93-5.22)
[2021-12-20 09:00] LABS: Estimated Average Glucose 111 mg/dl; Hemoglobin A1C 5.5 % (4.5-5.6)
[2021-12-20 09:13] LABS: Calcium 8.7 mg/dl (8.5-10.1); Creatinine Clr Calc Pharmacy 47.3 ml/min; Est GFR (African American) 53.5 ml/min; Est GFR (Non-African American) 46.2 ml/min; Potassium 3.3 mmol/L (3.5-5.1)
--- NOTE | 2021-12-20 09:37 | Orthopedic Consultation ---
Date of Consultation December 20, 2021 Assessment & Plan (1) Lumbar disc herniation with radiculopathy: Assessment lumbar disc herniation with herniated free fragment L2-L3 on the right with continued radiculopathy and motor deficit. Plan at this time we had discussion regarding her clinical presentation and treatment options. She would be a candidate for lumbar laminectomy L2-L3 on the right with excision of herniated free fragment. She will consider this most likely will perform surgery on Wednesday if she would like to proceed. History of Present Illness Reason for Consultation: Severe right leg pain with radiculopathy Attending Physician: London Renee MD History of Present Illness This is a 76-year-old female known to me the presents with continued severe right leg radiculopathy secondary to L2-L3 disc herniation. She has undergone an epidural injection but failed providing significant relief. She came in yest erday with severe pain and inability to ambulate. Left lower extremities asymptomatic. She is more comfortable this morning lying supine and after medications. Allergies Allergy/AdvReac Type Severity Reaction Status Date / Time Iodinated Contrast Media Allergy Intermediate Foot rash, Verified 12/19/21 19:04 swelling Sulfa (Sulfonamide Allergy Intermediate Rash, Verified 12/19/21 19:04 Antibiotics) itching sulfamethoxazole Allergy Intermediate Rash, Verified 12/19/21 19:04 itching Home Medications Medication Instructions Recorded Confirmed Type calcium carbonate 600 mg-vitamin 1 tab PO QAM 01/25/20 12/19/21 History D3 10 mcg (400 unit) tablet (Calcium 600 + D(3)) potassium gluconate 595 mg (99 mg) 99 mg PO QAM 01/25/20 12/19/21 History tablet folic acid 1 mg tablet 1 mg PO DAILY #90 tabs 06/05/21 12/19/21 Rx hydrochlorothiazide 25 mg tablet 25 mg PO DAILY 10/02/21 12/19/21 History lidocaine 5 % topical patch 1 patch topical DAILY PRN Pain 10/02/21 12/19/21 History ondansetron HCl 4 mg tablet 4 mg PO Q8H PRN nausea and 10/02/21 12/19/21 Rx vomiting #30 tabs famotidine 40 mg tablet 40 mg PO BID #180 tabs 10/27/21 12/19/21 Rx lisinopril 10 mg tablet 10 mg PO DAILY #30 tabs 11/05/21 12/19/21 Rx gabapentin 300 mg capsule 300 mg PO TID #90 caps 12/09/21 12/19/21 Rx hydrocodone 5 mg-acetaminophen 325 1 tab PO Q8H PRN pain #30 tabs 12/09/21 12/19/21 Rx mg tablet amiodarone 200 mg tablet 100 mg PO DAILY 12/16/21 12/19/21 History prednisone 5 mg tablet 10 mg PO DAILY 12/16/21 12/19/21 History acetaminophen 500 mg tablet 500 mg PO TID FEVER/PAIN 12/19/21 12/19/21 History (Tylenol Extra Strength) Patient History Medical History Abdominal pain, acute, bilateral lower quadrant Acute proctitis Anemia Celiac artery stenosis Chronic shoulder pain Pain started after CTR > per patient, PCP started her on prednisone for this which she they have been trying to slowly taper off of CKD (chronic kidney disease), stage III Diabetes mellitus, type 2 NIDDM Elevated lactic acid level Glaucoma Hypertension Lumbar radicular pain Morbid obesity Paroxysmal atrial fibrillation on Xarelto PMR (polymyalgia rheumatica) Rheumatoid arthritis Skin tear of right forearm without complication Sleep apnea CPAP Surgical History Cyst Scalp cysts excision (12/12/18): Grade view 1, MAC#3, ETT 7.5 at [facility] H/O colonoscopy History of ankle surgery Right History of carpal tunnel release Right History of hernia repair Laparoscopic hernia x2 History of knee replacement procedure of right knee R/L History of laminectomy Dr. Styles History of left knee replacement + subsequent Left knee I&D poly exchange History of lumpectomy of left breast benign History of revision of total knee arthroplasty R/L History of surgical procedure on eye proper using laser History of tooth extraction Hx of hysterectomy Hx of left cataract extraction Hx of right cataract extraction Family History Sister Breast cancer Father Heart disease Other No family history of adverse response to anesthesia Denies family history of Ovarian cancer Prostate cancer Myocardial infarction Lung cancer Colorectal cancer Social History Smoking Status: Never smoker Age Started Using Tobacco: 5; Age Quit Using Tobacco: 25; packs per day: 1; Years Smoked: 24; Second Hand Exposure: No; Do You Dip or Chew Tobacco: No; Hx Alcohol Use: No Hx Substance Use: No Preferred Language: Irish Communication Ability: Effective Visual Impairment: Limited Hearing Ability: Normal 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 Beliefs That Will Affect Care: None marital status: Current Living Situation: Family Current Living Situation Comment: lives with and sons current occupational status: retired How many Children do You have: 5 Other Information That Helps Us Care for You: No Feels Safe at Home: Yes Safety Concerns: Feels Safe At This Time Childhood Exposure to Second-Hand Smoke: Yes caffeine: No during the past year weight has: decreased > 10 lbs Dental Care, Regularly: No Physical Activity Frequency: Does not Exercise Seatbelt Use: always Sunscreen Use: No Do you think of yourself as: straight/heterosexual Gender Identity: Female Assistive Devices: Denture - Upper, Glasses and Walker Physical Exam Physical Exam: On exam she does have ecchymosis to the right anterior thigh secondary to her striking her thigh in order to monika the pain. She does have marked deficits with right quadricep and hip flexion compared to the left. Plantar flexion dorsiflexion intact. Results & Data ([facility]) Vital Signs (Past 12 Hours) Vital Signs Temp Pulse Pulse Resp BP Pulse Ox O2 Del Method 12/20/21 07:32 36.6 C 58 L 16 125/76 97 Room Air 12/19/21 22:55 36.6 C 75 16 162/85 H 98 Room Air 12/19/21 22:27 Room Air 12/19/21 22:21 80 16 135/78 100 Room Air
[2021-12-20] MEDS ORDERED: Nursing to Pharmacy Communication SCH (11:30)
--- NOTE | 2021-12-20 16:30 | Hospitalist Progress Note ---
Date of Service December 20, 2021 Assessment & Plan (1) Lumbar radicular pain: Plan: Acute on chronic low back pain, history of L3 laminectomy and epidural steroid injection - MRI 12/04/21:1. Right paracentral disc extrusion at L2-L3 with inferior s ubligamentous migration which results in severe narrowing of the right lateral recess. In addition, severe central canal stenosis at this level due to the disc extrusion, ligamentous hypertrophy and facet arthrosis.2. Postoperative findings consistent with right L3-L4 hemilaminectomy.3. Severe multilevel facet arthrosis. Multilevel neural foraminal stenosis, as above.4. No change in anterolisthesis of L5 on S1 due to bilateral L5 pars defects. Patient with severe pain limiting ambulation which did not have durable relief following epidural steroid injection Pain management consulted, however given patient's lack of response may need orthopedic intervention. Patient has followed with Dr. Styles in the past. Consulted. No saddle anesthesia/retention at time of assessment. Does get shooting pain which stops at her right knee Lidocaine patch K pad alternating with lidocaine Scheduled Tylenol, continue gabapentin Scaled scale morphine ordered for breakthrough which has been discontinued Pain management consulted. Patient has considered interventions with Dr. Styles but wanted to try the epidural injection first. Given that this has not given her long-term response, she would like to have reevaluation by orthospine and notes that she is completely unable to ambulate at present due to her pain PT/OT consulted - Dr. Styles to likely do surgery wednesday, make full admission and NPO after MN on Wednesday (2) Hypertension: Plan: Hydrochlorothiazide Resume Lisinopril (3) DJD (degenerative joint disease): (4) Diabetes mellitus, type 2: Plan: Previously on metformin, patient no longer on any home antilipemics with last A1c of 5.1% We will follow BSG's, update A1c, if persistently hyperglycemic above 140 add SSI Diabetic diet, glucose checks AC/at bedtime (5) CKD (chronic kidney disease), stage III: Plan: - Chronic, stable (6) Paroxysmal atrial fibrillation: Plan: - Xarelto held post injection - In sinus, well contolled on Amio no recent afib Plan As above. Plan to resume her Lisinopril. Replace her K+ of 3.3. Repeat BMP in AM. PT/OT. NPO after MN on Wednesday in preparation for surgical intervention on Wednesday with Dr. Styles. Palpable abnormality noted on exam correlates with previous ventral hernia repair. Plan to be d/w Dr. Renee. Admission and Anticipated Discharge Date Admission Date: December 19, 2021 Subjective Patient seen on daily rounds this morning. She is resting in bed, reports back pain is minimal and therefore adequately controlled at present. She denies saddle anesthesias, radiation down one or both legs. Denies cp or dyspnea. Is not incontinent of bowel or bladder. Review of Systems Review of Systems: All systems reviewed and are unremarkable except as noted in HPI and below. Denies fever, chills, fatigue, headache, nasal congestion, sore throat, cough, chest pain, shortness of breath, palpitations, orthopnea, PND, abdominal pain, n/v/d, constipation, dysuria, hematuria, frequency, joint pain or swelling, easy bruising or bleeding, skin lesions or rashes. Physical Exam Physical Exam: GENERAL: 76 yo Well-developed, well-nourished elderly WF. NAD. LUNGS: Clear to auscultation bilaterally. No W/R/R. CARDIOVASCULAR: Regular rate and rhythm. ABDOMEN: Soft, non-tender and non-distended. BS normoactive x 4 quad. Soft protrusion just lateral to umbilicus. Also deep palpation reveals a firm mass in the middle abdomen. EXTREMITIES: No edema. Non-tender. Peripheral pulses +2/4. NEUROLOGIC: A&O x3. Nonfocal PSYCHIATRIC: Cooperative. Appropriate mood and affect. SKIN: Warm, dry, intact. No rashes or lesions. Results & Data Results & Data ([place]) Vital Signs (Past 12 Hours) Vital Signs Temp Pulse Resp BP Pulse Ox O2 Del Method 12/20/21 15:59 37.1 C 68 16 150/76 H 96 Room Air 12/20/21 07:45 Room Air 12/20/21 07:32 36.6 C 58 L 16 125/76 97 Room Air Laboratory Results 12/20/21 07:26 12/20/21 07:26 PG Care Time/CCT Total # of Minutes Spent Total Time Spent with Patient: Total time spent is greater than 50% in coordination of care (as documented) at patient's floor/unit and/or counseling patient: Coding Level of Care Code 94584 Subseq Hosp Care Lvl 2 Diagnoses Lumbar radicular pain M54.16 Hypertension I10 Hypertension type: unspecified DJD (degenerative joint disease) M19.90 Diabetes mellitus, type 2 E11.22; N18.31 Diabetes mellitus intermediate designer insulin use: without intermediate designer use Diabetes mellitus complication status: with kidney complications Diabetes mellitus complication detail: with chronic kidney disease Chronic kidney disease stage: stage 3 (moderate) Chronic kidney disease stage 3 subtype: stage 3a (GFR 45-59) CKD (chronic kidney disease), stage III N18.31 Chronic kidney disease stage 3 subtype: stage 3a (GFR 45-59) Paroxysmal atrial fibrillation I48.0 (1) Diabetes mellitus, type 2 Diabetes mellitus fpc insulin use: without fpc use Diabetes mellitus complication status: with kidney complications Diabetes mellitus complication detail: with chronic kidney disease Chronic kidney disease stage: stage 3 (moderate) Chronic kidney disease stage 3 subtype: stage 3a (GFR 45-59) Qualified Code(s): E11.22 - Type 2 diabetes mellitus with diabetic chronic kidney disease; N18.31 - Chronic kidney disease, stage 3a (2) CKD (chronic kidney disease), stage III Chronic kidney disease stage 3 subtype: stage 3a (GFR 45-59) Qualified Cod e(s): N18.31 - Chronic kidney disease, stage 3a (3) Hypertension Hypertension type: unspecified Qualified Code(s): I10 - Essential (primary) hypertension
[2021-12-20] MEDS ORDERED: POTASSIUM CHLORIDE CRTAB 20 MEQ TABCR PO STA (16:46)
[2021-12-20] MEDS: lisinopril 10 MG TAB PO SCH (18:17)
[2021-12-20] MEDS ORDERED: POLYETHYLENE (MIRALAX) 17 GM PACK PO PRN (19:44)
[2021-12-21] MEDS: ACETAMINOPHEN 325 MG TAB PO SCH ×6 (02:38→23:15)
[2021-12-21 07:26] LABS: BUN Creatinine Ratio 26.8 (10-20); Calcium 8.6 mg/dl (8.5-10.1); Creatinine Clr Calc Pharmacy 44.3 ml/min; Est GFR (African American) 49.3 ml/min; Est GFR (Non-African American) 42.6 ml/min; Potassium 3.6 mmol/L (3.5-5.1)
[2021-12-21] MEDS: FOLIC ACID 1 MG TAB PO SCH (08:26)
[2021-12-21] MEDS: hydroCHLOROthiazide 25 MG TAB PO SCH (08:26)
[2021-12-21] MEDS: CALCIUM 600MG + VIT D 400 IU TAB PO SCH (08:26)
[2021-12-21] MEDS: predniSONE 10 MG TABLET PO SCH (08:26)
[2021-12-21] MEDS: GABAPENTIN 300 MG CAP PO SCH ×3 (08:26→20:08)
[2021-12-21] MEDS: AMIODARONE 200 MG TAB PO SCH (08:26)
[2021-12-21] MEDS: FAMOTIDINE 40 MG TABLET PO SCH ×2 (08:26→20:08)
[2021-12-21] MEDS: lisinopril 10 MG TAB PO SCH (08:27)
--- NOTE | 2021-12-21 11:32 | Orthopedic Progress Note ---
Date of Service December 21, 2021 Assessment & Plan (1) Lumbar disc herniation with radiculopathy: Plan: At this time she would like to pursue surgical intervention having failed nonoperative care. We will make her n.p.o. after midnight and plan for lumbar laminectomy L2-L3 on the right tomorrow. Admission and Anticipated Discharge Date Admission Date: December 20, 2021 Subjective Patient having severe right leg pain. Physical Exam Physical Exam: Patient is in obvious distress. She continues to have weakness to the right quadricep and hip flexor. Results & Data ([facility]) Vital Signs (Past 12 Hours) Vital Signs Temp Pulse Resp BP Pulse Ox O2 Del Method 12/21/21 07:40 36.4 C L 53 L 20 111/68 98 Room Air
--- NOTE | 2021-12-21 12:20 | Hospitalist Progress Note ---
Date of Service December 21, 2021 Assessment & Plan (1) Lumbar radicular pain: Plan: Acute on chronic low back pain, history of L3 laminectomy and epidural steroid injection - MRI 12/04/21:1. Right paracentral disc extrusion at L2-L3 with inferior s ubligamentous migration which results in severe narrowing of the right lateral recess. In addition, severe central canal stenosis at this level due to the disc extrusion, ligamentous hypertrophy and facet arthrosis.2. Postoperative findings consistent with right L3-L4 hemilaminectomy.3. Severe multilevel facet arthrosis. Multilevel neural foraminal stenosis, as above.4. No change in anterolisthesis of L5 on S1 due to bilateral L5 pars defects. Patient with severe pain limiting ambulation which did not have durable relief following epidural steroid injection Pain management consulted, however given patient's lack of response may need orthopedic intervention. Patient has followed with Dr. Styles in the past. Consulted. No saddle anesthesia/retention at time of assessment. Does get shooting pain which stops at her right knee. Unable to ambulate, failed conservative management. Lidocaine patch Scheduled Tylenol, continue gabapentin Scaled scale morphine ordered for breakthrough PT/OT consulted - Dr. Styles plans for surgical intervention tomorrow, NPO after MN tonight (2) Hypertension: Plan: Hydrochlorothiazide and Lisinopril resumed - Hold Lisinopril in preparation of surgery tomorrow (3) DJD (degenerative joint disease): (4) Diabetes mellitus, type 2: Plan: Previously on metformin, patient no longer on any home antilipemics with last A1c of 5.1% We will follow BSG's, update A1c, if persistently hyperglycemic above 140 add SSI Diabetic diet, glucose checks AC/at bedtime (5) CKD (chronic kidney disease), stage III: Plan: - Chronic, stable (6) Paroxysmal atrial fibrillation: Plan: - Xarelto held post injection - In sinus, well contolled on Amio no recent afib Plan As above. Place Lisinopril on hold in anticipation of surgery. Plan to be d/w Dr. Renee. Admission and Anticipated Discharge Date Admission Date: December 20, 2021 Subjective Patient seen on rounds this morning. She reports some lower back pain currently. No numbness/tingling in groin or legs. No loss of bowel/bladder control. Denies chest pain, dyspnea, n/v/d, or gu symptoms. Per pt, was up wandering last evening, believes it was secondary to pain medications she received as this has happened previously when taking pain meds. Review of Systems Review of Systems: All systems reviewed and are unremarkable except as noted in HPI and below. Denies fever, chills, fatigue, headache, nasal congestion, sore throat, cough, chest pain, shortness of breath, palpitations, orthopnea, PND, abdominal pain, n/v/d, constipation, dysuria, hematuria, frequency, joint pain or swelling, easy bruising or bleeding, skin lesions or rashes. Physical Exam Physical Exam: GENERAL: 76 yo Well-developed, well-nourished elderly WF. NAD. LUNGS: Clear to auscultation bilaterally. No W/R/R. CARDIOVASCULAR: Regular rate and rhythm. ABDOMEN: Soft, non-tender and non-distended. BS normoactive x 4 quad. EXTREMITIES: No edema. Non-tender. Peripheral pulses +2/4. NEUROLOGIC: A&O x3. Nonfocal PSYCHIATRIC: Cooperative. Appropriate mood and affect. SKIN: Warm, dry, intact. No rashes or lesions. Results & Data Results & Data ([facility]) Vital Signs (Past 12 Hours) Vital Signs Temp Pulse Resp BP Pulse Ox O2 Del Method 12/21/21 11:26 Room Air 12/21/21 07:40 36.4 C L 53 L 20 111/68 98 Room Air Laboratory Results 12/20/21 07:26 12/21/21 06:07 PG Care Time/CCT Total # of Minutes Spent Total Time Spent with Patient: Total time spent is greater than 50% in coordination of care (as documented) at patient's floor/unit and/or counseling patient: Coding Level of Care Code 72833 Subseq Hosp Care Lvl 2 Diagnoses Lumbar radicular pain M54.16 Hypertension I10 Hypertension type: unspecified DJD (degenerative joint disease) M19.90 Diabetes mellitus, type 2 E11.22; N18.31 Diabetes mellitus vice admiral insulin use: without vice admiral use Diabetes mellitus complication status: with kidney complications Diabetes mellitus complication detail: with chronic kidney disease Chronic kidney disease stage: stage 3 (moderate) Chronic kidney disease stage 3 subtype: stage 3a (GFR 45-59) CKD (chronic kidney disease), stage III N18.31 Chronic kidney disease stage 3 subtype: stage 3a (GFR 45-59) Paroxysmal atrial fibrillation I48.0 (1) Hypertension Hypertension type: unspecified Qualified Code(s): I10 - Essential (primary) hypertension (2) Diabetes mellitus, type 2 Diabetes mellitus vice admiral insulin use: without vice admiral use Diabetes mellitus complication status: with kidney complications Diabetes mellitus comp lication detail: with chronic kidney disease Chronic kidney disease stage: stage 3 (moderate) Chronic kidney disease stage 3 subtype: stage 3a (GFR 45-59) Qualified Code(s): E11.22 - Type 2 diabetes mellitus with diabetic chronic kidney disease; N18.31 - Chronic kidney disease, stage 3a (3) CKD (chronic kidney disease), stage III Chronic kidney disease stage 3 subtype: stage 3a (GFR 45-59) Qualified Code(s): N18.31 - Chronic kidney disease, stage 3a
[2021-12-21] MEDS: LIDOCAINE 5% 1 PATCH TD SCH (20:07)
[2021-12-22] MEDS: ACETAMINOPHEN 325 MG TAB PO SCH ×4 (03:50→22:45)
[2021-12-22 07:49] LABS: Appearance Urine Clear (Clear); Bacteria Urine Automated 2+ (Negative); Bilirubin Urine Negative (Negative); Blood Urine Negative (Negative); Color Urine Yellow; Glucose Urine UA Negative (Negative); Ketones Urine Negative (Negative); Leukocyte Esterase Urine 1+ (Negative); Nitrite Urine Negative (Negative); Protein Urine Negative (Negative); RBC Urine Automated 0-4 /hpf (0-4); Specific Gravity Urine 1.012 (1.000-1.030); Urobilinogen Urine Negative (Negative); WBC Urine Automated >30 /hpf (0-5)
--- NOTE | 2021-12-22 07:53 | Pain Management Consultation ---
Date of Consultation December 22, 2021 Assessment & Plan (1) Lumbar disc herniation with radiculopathy: Plan 1. Patient going to OR this AM for L2-3 lami. Agree with this plan as only short term benefit from KEL. please re-consult if needed postop. Thanks History of Present Illness Attending Physician: London Renee MD Allergies Allergy/AdvReac Type Severity Reaction Status Date / Time Iodinated Contrast Media Allergy Intermediate Foot rash, Verified 12/19/21 19:04 swelling Sulfa (Sulfonamide Allergy Intermediate Rash, Verified 12/19/21 19:04 Antibiotics) itching sulfamethoxazole Allergy Intermediate Rash, Verified 12/19/21 19:04 itching Home Medications Medication Instructions Recorded Confirmed Type calcium carbonate 600 mg-vitamin 1 tab PO QAM 01/25/20 12/19/21 History D3 10 mcg (400 unit) tablet (Calcium 600 + D(3)) potassium gluconate 595 mg (99 mg) 99 mg PO QAM 01/25/20 12/19/21 History tablet folic acid 1 mg tablet 1 mg PO DAILY #90 tabs 06/05/21 12/19/21 Rx hydrochlorothiazide 25 mg tablet 25 mg PO DAILY 10/02/21 12/19/21 History lidocaine 5 % topical patch 1 patch topical DAILY PRN Pain 10/02/21 12/19/21 History ondansetron HCl 4 mg tablet 4 mg PO Q8H PRN nausea and 10/02/21 12/19/21 Rx vomiting #30 tabs famotidine 40 mg tablet 40 mg PO BID #180 tabs 10/27/21 12/19/21 Rx lisinopril 10 mg tablet 10 mg PO DAILY #30 tabs 11/05/21 12/19/21 Rx gabapentin 300 mg capsule 300 mg PO TID #90 caps 12/09/21 12/19/21 Rx hydrocodone 5 mg-acetaminophen 325 1 tab PO Q8H PRN pain #30 tabs 12/09/21 12/19/21 Rx mg tablet amiodarone 200 mg tablet 100 mg PO DAILY 12/16/21 12/19/21 History prednisone 5 mg tablet 10 mg PO DAILY 12/16/21 12/19/21 History acetaminophen 500 mg tablet 500 mg PO TID FEVER/PAIN 12/19/21 12/19/21 History (Tylenol Extra Strength) Patient History Medical History Abdominal pain, acute, bilateral lower quadrant Acute proctitis Anemia Celiac artery stenosis Chronic shoulder pain Pain started after CTR > per patient, PCP started her on prednisone for this which she they have been trying to slowly taper off of CKD (chronic kidney disease), stage III Diabetes mellitus, type 2 NIDDM Elevated lactic acid level Glaucoma Hypertension Lumbar radicular pain Morbid obesity Paroxysmal atrial fibrillation on Xarelto PMR (polymyalgia rheumatica) Rheumatoid arthritis Skin tear of right forearm without complication Sleep apnea CPAP Surgical History Cyst Scalp cysts excision (12/12/18): Grade view 1, MAC#3, ETT 7.5 at [facility] H/O colonoscopy History of ankle surgery Right History of carpal tunnel release Right History of hernia repair Laparoscopic hernia x2 History of knee replacement procedure of right knee R/L History of laminectomy Dr. Styles History of left knee replacement + subsequent Left knee I&D poly exchange History of lumpectomy of left breast benign History of revision of total knee arthroplasty R/L History of surgical procedure on eye proper using laser History of tooth extraction Hx of hysterectomy Hx of left cataract extraction Hx of right cataract extraction Family History Sister Breast cancer Father Heart disease Other No family history of adverse response to anesthesia Denies family history of Ovarian cancer Prostate cancer Myocardial infarction Lung cancer Colorectal cancer Social History Smoking Status: Never smoker Age Started Using Tobacco: 5; Age Quit Using Tobacco: 25; packs per day: 1; Years Smoked: 24; Second Hand Exposure: No; Do You Dip or Chew Tobacco: No; Hx Alcohol Use: No Hx Substance Use: No Preferred Language: Mongolian Communication Ability: Effective Visual Impairment: Limited Hearing Ability: Normal 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 Based Required: No Beliefs That Will Affect Care: None marital status: Current Living Situation: Family Current Living Situation Comment: lives with and sons current occupational status: retired How many Children do You have: 5 Other Information That Helps Us Care for You: No Feels Safe at Home: Yes Safety Concerns: Feels Safe At This Time Childhood Exposure to Second-Hand Smoke: Yes caffeine: No during the past year weight has: decreased > 10 lbs Dental Care, Regularly: No Physical Activity Frequency: Does not Exercise Seatbelt Use: always Sunscreen Use: No Do you think of yourself as: straight/heterosexual Gender Identity: Female Assistive Devices: Walker and Wheelchair
[2021-12-22] MEDS: CALCIUM 600MG + VIT D 400 IU TAB PO SCH (08:21)
[2021-12-22] MEDS: FAMOTIDINE 40 MG TABLET PO SCH ×2 (08:21→20:28)
[2021-12-22] MEDS: hydroCHLOROthiazide 25 MG TAB PO SCH (08:22)
[2021-12-22] MEDS: predniSONE 10 MG TABLET PO SCH (08:22)
[2021-12-22] MEDS: AMIODARONE 200 MG TAB PO SCH ×2 (08:22→16:07)
[2021-12-22] MEDS: FOLIC ACID 1 MG TAB PO SCH (08:22)
[2021-12-22] MEDS: GABAPENTIN 300 MG CAP PO SCH ×3 (08:22→20:29)
[2021-12-22] MEDS ORDERED: ATROPINE SULFATE 0.1 MG/ML 10ML SYR IV PRN ×2 (11:50→13:24)
[2021-12-22] MEDS ORDERED: PROMETHAZINE HCL 6.25 MG in SODIUM CHLORIDE 0.9% 50 ML IV PRN ×2 (11:50→13:24)
[2021-12-22] MEDS ORDERED: fentaNYL citrate 100 MCG/2 ML VIAL IV PRN ×2 (11:50→13:24)
[2021-12-22] MEDS ORDERED: ONDANSETRON INJ 2 MG/ML 2 ML VIAL IV PRN ×3 (11:50→15:47)
[2021-12-22] MEDS ORDERED: ePHEDrine sulfate 50 MG/ML AMP IV PRN ×2 (11:50→13:24)
--- NOTE | 2021-12-22 11:50 | Anesthesiology Consultation ---
Date of Service December 22, 2021 Assessment & Plan Chart Review Chart Review: Acceptable Risk for Surgery and Patient NOT seen in Pre Admission Testing Consults Requested none ASA ASA3 Proposed Anesthesia Anesthesia Type: General Risk / Benefits Reviewed With: PT / POA / Parent / Guardian, Accepts Plan and Informed Consent Obtained History Surgery Operation Date: 12/22/21 08:20 Proposed Procedures p Right L2-L3 Lumbar Laminectomy - Lazarus Styles, Height/Weight Height: 5 ft 6 in Weight: 91.2 kg Allergies Allergy/AdvReac Type Severity Reaction Status Date / Time Iodinated Contrast Media Allergy Intermediate Foot rash, Verified 12/22/21 11:30 swelling Sulfa (Sulfonamide Allergy Intermediate Rash, Verified 12/22/21 11:30 Antibiotics) itching sulfamethoxazole Allergy Intermediate Rash, Verified 12/22/21 11:30 itching Medications Home Medications Medication Instructions Recorded Confirmed Last Taken calcium carbonate 600 mg-vitamin 1 tab PO QAM 01/25/20 12/19/21 12/02/21 D3 10 mcg (400 unit) tablet (Calcium 600 + D(3)) potassium gluconate 595 mg (99 mg) 99 mg PO QAM 01/25/20 12/19/21 12/02/21 tablet folic acid 1 mg tablet 1 mg PO DAILY #90 tabs 06/05/21 12/19/21 12/02/21 hydrochlorothiazide 25 mg tablet 25 mg PO DAILY 10/02/21 12/19/21 12/02/21 lidocaine 5 % topical patch 1 patch topical DAILY PRN Pain 10/02/21 12/19/21 Unknown ondansetron HCl 4 mg tablet 4 mg PO Q8H PRN nausea and 10/02/21 12/19/21 Unknown vomiting #30 tabs famotidine 40 mg tablet 40 mg PO BID #180 tabs 10/27/21 12/19/21 12/02/21 08:00 lisinopril 10 mg tablet 10 mg PO DAILY #30 tabs 11/05/21 12/19/21 12/02/21 gabapentin 300 mg capsule 300 mg PO TID #90 caps 12/09/21 12/19/21 Unknown hydrocodone 5 mg-acetaminophen 325 1 tab PO Q8H PRN pain #30 tabs 12/09/21 12/19/21 Unknown mg tablet amiodarone 200 mg tablet 100 mg PO DAILY 12/16/21 12/19/21 Unknown prednisone 5 mg tablet 10 mg PO DAILY 12/16/21 12/19/21 Unknown acetaminophen 500 mg tablet 500 mg PO TID FEVER/PAIN 12/19/21 12/19/21 Unknown (Tylenol Extra Strength) Active Medications Generic Name Dose Route Start Last Admin Trade Name Fabianq PRN Reason Stop Dose Admin Acetaminophen 650 mg 12/19/21 23:05 12/22/21 11:23 Acetaminophen 325 Mg Tab PO 01/18/22 23:04 Not Given Q4H [facility] Amiodarone HCl 100 mg 12/20/21 09:00 12/22/21 08:22 Amiodarone 200 Mg Tab PO 01/19/22 08:59 Not Given DAILY EMMANUEL Famotidine 40 mg 12/19/21 23:05 12/22/21 08:21 Famotidine 40 Mg Tablet PO 01/18/22 23:04 40 mg BID EMMANUEL Administration Folic Acid 1 mg 12/20/21 09:00 12/22/21 08:22 Folic Acid 1 Mg Tab PO 01/19/22 08:59 1 mg DAILY EMMANUEL Administration Gabapentin 300 mg 12/19/21 23:05 12/22/21 08:22 Gabapentin 300 Mg Cap PO 01/18/22 23:04 300 mg TID EMMANUEL Administration Hydrochlorothiazide 25 mg 12/20/21 09:00 12/22/21 08:22 Hydrochlorothiazide 25 Mg Tab PO 01/19/22 08:59 Not Given DAILY EMMANUEL Lidocaine 1 patch 12/19/21 23:05 12/21/21 20:07 Lidocaine 5% 1 Patch TD 01/18/22 23:04 Not Given HS EMMANUEL Lisinopril 10 mg 12/20/21 17:00 12/21/21 08:27 Lisinopril 10 Mg Tab PO 01/19/22 16:59 10 mg DAILY EMMANUEL Administration Miscellaneous 1 each 12/20/21 09:00 12/22/21 08:22 Remove Lidoderm Patch N/A 01/19/22 08:59 Not Given DAILY@0900 [facility] Morphine Sulfate 4 mg 12/19/21 23:05 12/21/21 10:43 Morphine Sulfate 4 Mg/Ml 1 Ml Carp\Vial IV 01/02/22 23:04 4 mg Q4H PRN Administration Severe Pain (7,8,9,10) on NRS Multivitamins/Minerals 1 tab 12/20/21 09:00 12/22/21 08:21 Calcium 600mg + Vit D 400 Iu Tab PO 01/19/22 08:59 1 tab QAM EMMANUEL Administration Polyethylene Glycol 17 gm 12/20/21 19:44 12/20/21 20:05 Polyethylene (Miralax) 17 Gm Pack PO 01/19/22 19:43 17 gm Q12H PRN Administration Constipation Prednisone 10 mg 12/20/21 09:00 12/22/21 08:22 Prednisone 10 Mg Tablet PO 01/19/22 08:59 10 mg DAILY EMMANUEL Administration NPO Date Last Intake of Fluids: 12/21/21 Time Last Intake of Fluids: 18:00 Date Last Intake of Solids: 12/21/21 Time Last Intake of Solids: 18:00 Past Medical History Medical History Abdominal pain, acute, bilateral lower quadrant Acute proctitis Anemia Celiac artery stenosis Chronic shoulder pain Pain started after CTR > per patient, PCP started her on prednisone for this which she they have been trying to slowly taper off of CKD (chronic kidney disease), stage III Diabetes mellitus, type 2 NIDDM Elevated lactic acid level Glaucoma Hypertension Lumbar radicular pain Morbid obesity Paroxysmal atrial fibrillation on Xarelto PMR (polymyalgia rheumatica) Rheumatoid arthritis Skin tear of right forearm without complication Sleep apnea CPAP Exercise / Class Metabolic Activity II 4-5 Yardwork/Stairs/Walk up hill Past Family History Family History Sister Breast cancer Father Heart disease Other No family history of adverse response to anesthesia Denies family history of Ovarian cancer Prostate cancer Myocardial infarction Lung cancer Colorectal cancer Past Surgical History Surgical History Cyst Scalp cysts excision (12/12/18): Grade view 1, MAC#3, ETT 7.5 at [facility] H/O colonoscopy History of ankle surgery Right History of carpal tunnel release Right History of hernia repair Laparoscopic hernia x2 History of knee replacement procedure of right knee R/L History of laminectomy Dr. Styles History of left knee replacement + subsequent Left knee I&D poly exchange History of lumpectomy of left breast benign History of revision of total knee arthroplasty R/L History of surgical procedure on eye proper using laser History of tooth extraction Hx of hysterectomy Hx of left cataract extraction Hx of right cataract extraction Past Anesthesia History No Hx of Anesthesia Complications and No Family Hx of Anesthesia Complications History of PONV No Hx of PONV and No Hx of Motion Sickness Social History Smoking Status: Never smoker tobacco type: cigarettes Do You Dip or Chew Tobacco: No Hx Alcohol Use: No Hx Substance Use: No substance use type: does not use Physical Exam Vital Signs Last Vital Signs Temp 37 C 12/22/21 11:22 Pulse 69 12/22/21 11:22 Resp 20 12/22/21 11:22 BP 127/76 12/22/21 11:22 Pulse Ox 98 12/22/21 11:22 O2 Del Method 12/22/21 11:22 Constitutional + obese ENMT Mouth: + edentulous Thyromental Distance: > or= 3.5 Finger Breadths Mallampati Class: II Neck normal visual inspection Respiratory normal respiratory effort Auscultation: lungs clear to auscultation bilaterally Cardiovascular Rate/Rhythm: regular rate and regular rhythm Psychiatric Orientation: alert Testing Laboratory Results 12/20/21 07:26 12/21/21 06:07 Hemoglobin A1c 5.5 % (4.5-5.6) 12/20/21 07:26 Urine Color Yellow 12/22/21 07:15 Urine Appearance Clear (Clear) 12/22/21 07:15 Urine pH 7.0 (4.5-7.5) 12/22/21 07:15 Ur Specific [place] 1.012 (1.000-1.030) 12/22/21 07:15 Urine Protein Negative (Negative) 12/22/21 07:15 Urine Glucose (UA) Negative (Negative) 12/22/21 07:15 Urine Ketones Negative (Negative) 12/22/21 07:15 Urine Nitrite Negative (Negative) 12/22/21 07:15 Ur Leukocyte Esterase 1+ (Negative) H 12/22/21 07:15 Urine WBC (Auto) >30 /hpf (0-5) H 12/22/21 07:15 Urine RBC (Auto) 0-4 /hpf (0-4) 12/22/21 07:15 U Hyaline Cast (Auto) 1-5 /lpf (0-5) 12/22/21 07:15 U Epithel Cells (Auto) 5-10 /lpf (0-5) H 12/22/21 07:15 Urine Bacteria (Auto) 2+ (Negative) H 12/22/21 07:15 12/22/21 12/22/21 12/22/21 11:39 08:08 00:21 POC Glucose 94 81 95
--- NOTE | 2021-12-22 12:14 | Hospitalist Progress Note ---
Date of Service December 22, 2021 Assessment & Plan (1) Lumbar radicular pain: Plan: Acute on chronic low back pain, history of L3 laminectomy and epidural steroid injection - MRI 12/04/21:1. Right paracentral disc extrusion at L2-L3 with inferior s ubligamentous migration which results in severe narrowing of the right lateral recess. In addition, severe central canal stenosis at this level due to the disc extrusion, ligamentous hypertrophy and facet arthrosis.2. Postoperative findings consistent with right L3-L4 hemilaminectomy.3. Severe multilevel facet arthrosis. Multilevel neural foraminal stenosis, as above.4. No change in anterolisthesis of L5 on S1 due to bilateral L5 pars defects. Patient with severe pain limiting ambulation which did not have durable relief following epidural steroid injection Pain management consulted, however given patient's lack of response may need orthopedic intervention. Patient has followed with Dr. Styles in the past. Consulted. No saddle anesthesia/retention at time of assessment. Does get shooting pain which stops at her right knee. Unable to ambulate, failed conservative management. Lidocaine patch Scheduled Tylenol, continue gabapentin Scaled scale morphine ordered for breakthrough PT/OT consulted (will need to work with pt following surgery) - Dr. Styles to take to OR today, NPO since MT last evening (2) Hypertension: Plan: Hydrochlorothiazide and Lisinopril resumed - Hold Lisinopril in preparation of surgery tomorrow - HCTZ was held this AM d/t slightly low BP of 96 systolic (3) DJD (degenerative joint disease): (4) Diabetes mellitus, type 2: Plan: Previously on metformin, patient no longer on any home antilipemics with last A1c of 5.1% We will follow BSG's, update A1c, if persistently hyperglycemic above 140 add SSI Diabetic diet, glucose checks AC/at bedtime (5) CKD (chronic kidney disease), stage III: Plan: - Chronic, stable (6) Paroxysmal atrial fibrillation: Plan: - Xarelto held post injection - In sinus, well contolled on Amio no recent afib Plan UA suggests UTI, although asymptomatic, will plan to treat with 3 doses of Rocephin for uncomplicated UTI since she is going for surgery today. Culture pending. AM labs ordered. Plan to be d/w Dr. Renee. Admission and Anticipated Discharge Date Admission Date: December 20, 2021 Subjective Patient seen on rounds this morning. She reports some lower back pain currently and had an episode earlier this morning where pain radiated into right leg. For laminectomy today with Dr. Styles. Review of Systems Review of Systems: All systems reviewed and are unremarkable except as noted in HPI and below. Denies fever, chills, fatigue, headache, nasal congestion, sore throat, cough, chest pain, shortness of breath, palpitations, orthopnea, PND, abdominal pain, n/v/d, constipation, dysuria, hematuria, frequency, joint pain or swelling, easy bruising or bleeding, skin lesions or rashes. Physical Exam Physical Exam: GENERAL: 76 yo Well-developed, well-nourished elderly WF. NAD. LUNGS: Clear to auscultation bilaterally. No W/R/R. CARDIOVASCULAR: Regular rate and rhythm. ABDOMEN: Soft, non-tender and non-distended. BS normoactive x 4 quad. EXTREMITIES: No edema. Non-tender. Peripheral pulses +2/4. NEUROLOGIC: A&O x3. Nonfocal PSYCHIATRIC: Cooperative. Appropriate mood and affect. SKIN: Warm, dry, intact. No rashes or lesions. Results & Data Results & Data ([facility]) Vital Signs (Past 12 Hours) Vital Signs Temp Pulse Pulse Resp BP BP Pulse Ox 12/22/21 11:22 37 C 69 20 127/76 98 12/22/21 07:29 36.4 C L 58 L 18 96/61 L 99 O2 Del Method 12/22/21 11:22 Room Air 12/22/21 07:29 Room Air PG Care Time/CCT Total # of Minutes Spent Total Time Spent with Patient: Total time spent is greater than 50% in coordination of care (as documented) at patient's floor/unit and/or counseling patient: Coding Level of Care Code 45386 Subseq Hosp Care Lvl 2 Diagnoses Lumbar radicular pain M54.16 Hypertension I10 Hypertension type: unspecified DJD (degenerative joint disease) M19.90 Diabetes mellitus, type 2 E11.22; N18.31 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 use Diabetes mellitus complication status: with kidney complications Diabetes mellitus complication detail: with chronic kidney disease Chronic kidney disease stage: stage 3 (moderate) Chronic kidney disease stage 3 subtype: stage 3a (GFR 45-59) CKD (chronic kidney disease), stage III N18.31 Chronic kidney disease stage 3 subtype: stage 3a (GFR 45-59) Paroxysmal atrial fibrillation I48.0 (1) Hypertension Hypertension type: unspecified Qualified Code(s): I10 - Essential (primary) hypertension (2) Diabetes mellitus, type 2 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
[2021-12-22] MEDS ORDERED: NEOSTIGMINE METHYLSULFATE 1 MG/ML 10ML VIAL ONE (12:34)
[2021-12-22] MEDS ORDERED: PROPOFOL IV EMULSION 10 MG/ML 20 ML VIAL IV ONE (12:34)
[2021-12-22] MEDS ORDERED: DEXAMETHASONE SOD INJ 4 MG/ML VIAL ONE (12:34)
[2021-12-22] MEDS ORDERED: GLYCOPYRROLATE 0.2 MG/ML VIAL ONE ×2 (12:34→13:37)
[2021-12-22] MEDS ORDERED: ONDANSETRON INJ 2 MG/ML 2 ML VIAL ONE (12:34)
[2021-12-22] MEDS ORDERED: fentaNYL citrate 100 MCG/2 ML VIAL ONE ×2 (12:34→13:59)
--- NOTE | 2021-12-22 12:42 | History & Physical Bridge Note ---
Date of Service December 22, 2021 History & Physical Bridge Note I have examined the patient, reviewed the History & Physical and in the interval since the performance of the History & Physical I have noted the following changes of clinical significance: no changes noted Lumbar laminectomy L2-L3 on the right
[2021-12-22] MEDS ORDERED: cefTRIAXone SODIUM 1,000 MG in DEXTROSE 5% 50 ML IV SCH (12:45)
[2021-12-22] MEDS ORDERED: ceFAZolin 2,000 MG/15 ML IV PUSH IV ONE (12:56)
[2021-12-22] MEDS ORDERED: ceFAZolin 2000MG 2,000 MG/15 ML SYR IV ONE (12:58)
[2021-12-22] MEDS ORDERED: BUPIVACAINE/EPINEPHRINE 0.25% 1:200,000 30 ML VIAL ONE (13:04)
[2021-12-22] MEDS ORDERED: ceFAZolin 330 MG/ML 1 GM VIAL ONE (13:04)
[2021-12-22] MEDS ORDERED: ROCURONIUM BROMIDE 10 MG/ML 5 ML VIAL IV ONE (13:36)
[2021-12-22] MEDS ORDERED: LIDOCAINE 2% MPF LOCAL 5 ML VIAL INFIL ONE (13:37)
[2021-12-22] MEDS ORDERED: FLOSEAL HEMOSTATIC MATRIX 10ML TOP ONE (14:09)
--- NOTE | 2021-12-22 14:13 | Operative Report ---
Post Operative Report Pre & Post Diagnosis Operation Date: 12/22/21 08:20 Preop diagnosis Herniated was pulposis L2-L3 with free fragment on the right Postop diagnosis Same I identified the patient and participated in the time-out.: Yes Procedure Operation Date: 12/22/21 08:20 Lumbar laminotomy L2-L3 on the right with excision of herniated free fragment Surgeon Lazarus Styles DO Welding Machine Operator F[employer] Gama Alexander Estimated Blood Loss 10 Findings Consistent with Post-Op Diagnosis Specimens None Indications This is a 76-year-old female who presents with bulge diagnosis after failing course of nonoperative care and have continued radiculopathy with neurodeficit is here for surgical invention. Description of Procedure Patient was met with identified informed consent obtained. Patient was then taken to the operative suite underwent a patient placed in a prone position on the Demetri table on top of the Lexa frame. All bony prominences well-padded eyes inspected to ensure no external pressure placed upon them. This point the lumbar spine was prepped and draped normal sterile fashion. The assistance of fluoroscopy identify the L2-L3 disc space. A midline incision was then created overlying this region. Sharp dissection with assistance of Bovie cautery performed and exposing the interlaminar space at L2-L3 on the right. Self- retaining retractors placed. Then performed a small laminotomy excised the lateral aspect of the ligamentum flavum and medial aspect of the L2-3 facet joint to expose a markedly compressed traversing L3 nerve root. I was able to mobilize this medially and identified several massive loose fragments of disc material and had migrated caudally along the medial aspect of the L3 pedicle. T he area was explored several times to ensure all loose fragments addressed. Was then copiously irrigated. Incision was then closed with 1 Vicryl the fascia 2-0 Vicryl subcutaneously and 4 Monocryl for final skin closure. Steri-Strip sterile dressings placed. Patient waken taken PACU stable condition. Please note spinal cord monitoring was utilized at the procedure no changes noted. Lastly Gama Alexander was present out the entire surgery involved the patient positioning complex portions of the surgery and final skin closure. I attest to the content of the Intraoperative Record and any orders documented therein. Any exceptions are noted below.
--- NOTE | 2021-12-22 14:43 | Fluoroscopy Report ---
INTRAOPERATIVE RADIOGRAPHS CLINICAL HISTORY: L2-L3 laminectomy. Fluoroscopy time: 10 seconds. FINDINGS: A single spot fluoroscopic view of the lumbar spine is presented. A surgical probe projects posterior to a lumbar vertebral body, likely L3. IMPRESSION: Intraoperative image from lumbar spinal surgery as above. Electronically signed by: Chas Medellin M.D. 12/22/2021 2:40 PM
--- NOTE | 2021-12-22 15:12 | Anesthesiology Progress Note ---
Date of Service December 22, 2021 Anesthesia Post Procedure Vital Signs Vital Signs: Temp Pulse Pulse Resp BP BP Pulse Ox 12/22/21 15:05 36.5 C 63 19 125/67 100 12/22/21 14:55 65 16 125/67 100 12/22/21 14:45 68 12 128/59 L 100 12/22/21 14:35 73 17 125/82 100 12/22/21 14:25 36.4 C L 96 H 16 173/80 H 100 12/22/21 11:22 37 C 69 20 127/76 98 12/22/21 07:29 36.4 C L 58 L 18 96/61 L 99 12/21/21 23:01 37.0 C 59 L 16 99/63 L 98 O2 Del Method O2 Flow Rate 12/22/21 15:05 Room Air 12/22/21 14:55 Room Air 12/22/21 14:45 Room Air 12/22/21 14:35 Oxymask 5 12/22/21 14:25 Oxymask 5 12/22/21 11:22 Room Air 12/22/21 07:29 Room Air 12/21/21 23:01 Room Air Pain Intensity Back: Pain Intensity: 1 Transfer of Care Handoff Completed per policy Notes Mental Status: alert / awake / arousable Patient Amnestic to Procedure: Yes Nausea / Vomiting: adequately controlled Pain: adequately controlled Airway Patency, RR, SpO2: stable & adequate BP & HR: stable & adequate Hydration State: stable & adequate Anesthetic Complications: no major complications apparent
[2021-12-22] MEDS ORDERED: HYDROCODONE/ACETAMOPHEN 5/325MG TAB PO PRN (15:47)
[2021-12-22] MEDS ORDERED: NALOXONE HCL 0.4 MG/1 ML VIAL/CARP IV PRN (15:47)
[2021-12-22] MEDS ORDERED: MAGNESIUM HYDROXIDE SUSP 30 ML UDC PO PRN (15:47)
[2021-12-22] MEDS ORDERED: traMADol HCL 50 MG TABLET PO PRN (15:47)
[2021-12-22] MEDS ORDERED: ALUMINUM/MAGNESIUM SUSP 30 ML UDC PO PRN (15:47)
[2021-12-22] MEDS ORDERED: ONDANSETRON 4 MG OD TAB PO PRN (15:47)
[2021-12-22] MEDS ORDERED: PHARMACY GLYCEMIC MGMT CONSULT PRN (15:47)
[2021-12-22] MEDS ORDERED: LORazepam 0.5 MG in SYRINGE 0.25 ML IV PRN (15:47)
[2021-12-22] MEDS ORDERED: bisacodyL 10 MG SUPP PR PRN (15:47)
[2021-12-22] MEDS ORDERED: PROMETHAZINE HCL 12.5 MG in SODIUM CHLORIDE 0.9% 50 ML IV PRN (15:47)
[2021-12-22] MEDS ORDERED: LORazepam 0.5 MG TAB PO PRN (15:47)
[2021-12-22] MEDS ORDERED: HYDROmorphone INJ 1 MG/ML SYRINGE IV PRN (15:47)
[2021-12-22] MEDS ORDERED: ACETAMINOPHEN 500 MG TAB PO PRN (15:47)
[2021-12-22] MEDS ORDERED: SOD PHOSPHATE/SOD BIPHOSPHATE ENEMA 132 ML BTL PR PRN (15:47)
[2021-12-22] MEDS ORDERED: FAMOTIDINE 20 MG TAB PO PRN (15:47)
[2021-12-22] MEDS ORDERED: diphenhydrAMINE Capsule 25 MG CAP PO PRN (15:47)
[2021-12-22] MEDS ORDERED: METOCLOPRAMIDE HCL INJ 5 MG/ML 2 ML VIAL IV PRN (15:47)
[2021-12-22] MEDS ORDERED: HYDROmorphone INJ 0.5 MG/0.5 ML SYR IV PRN (15:47)
[2021-12-22] MEDS ORDERED: hydrOXYzine HCl 25 MG TAB PO PRN (15:47)
[2021-12-22] MEDS: SODIUM CHLORIDE 0.9% 1000ML 1,000 ML IV SCH (16:01)
[2021-12-22] MEDS: cefTRIAXone SODIUM 2,000 MG in DEXTROSE 5% 50 ML IV SCH (16:22)
[2021-12-22] MEDS ORDERED: COUGH DROP (SUGAR FREE) LOZ 24 LOZ/1 BOX BUCCAL PRN (17:18)
[2021-12-22] MEDS: ACETAMINOPHEN 1,000 MG/100 ML VIAL IV PRN (17:26)
[2021-12-22] MEDS: INSULIN ASPART PER UNIT SC SCH ×3 (18:18→23:39)
[2021-12-22] MEDS: ceFAZolin 2000MG 2,000 MG/15 ML SYR IV SCH (20:28)
[2021-12-22] MEDS: LIDOCAINE 5% 1 PATCH TD SCH (20:29)
[2021-12-22] MEDS ORDERED: DOCUSATE SODIUM/SENNA 50/8.6MG TAB PO SCH (21:00)
[2021-12-23] MEDS: ceFAZolin 2000MG 2,000 MG/15 ML SYR IV SCH (03:00)
[2021-12-23] MEDS: SODIUM CHLORIDE 0.9% 1000ML 1,000 ML IV SCH (03:00)
[2021-12-23] MEDS: INSULIN ASPART PER UNIT SC SCH ×3 (03:06→12:57)
[2021-12-23] MEDS: ACETAMINOPHEN 1,000 MG/100 ML VIAL IV PRN (03:16)
[2021-12-23] MEDS ORDERED: POLYETHYLENE (MIRALAX) 17 GM PACK PO SCH (06:00)
[2021-12-23] MEDS: CALCIUM 600MG + VIT D 400 IU TAB PO SCH (08:17)
[2021-12-23] MEDS: FAMOTIDINE 40 MG TABLET PO SCH (08:17)
[2021-12-23] MEDS: hydroCHLOROthiazide 25 MG TAB PO SCH (08:18)
[2021-12-23] MEDS: FOLIC ACID 1 MG TAB PO SCH (08:18)
[2021-12-23] MEDS: GABAPENTIN 300 MG CAP PO SCH ×2 (08:19→14:05)
[2021-12-23] MEDS: predniSONE 10 MG TABLET PO SCH (08:19)
[2021-12-23 08:32] LABS: Basophils # (auto) 0.02 K/uL (0-0.2); Basophils % (auto) 0.1 %; Eosinophils # (auto) 0.01 K/uL (0-0.50); Eosinophils % (auto) 0.1 %; Hematocrit (blood only) 34.2 % (34.1-44.9); Hemoglobin 11.1 g/dl (12.0-16.0); Immature Granulocytes # (auto) 0.08 K/uL (0.00-0.02); Immature Granulocytes % (auto) 0.6 %; Lymphocytes # (auto) 1.12 K/uL (1.2-3.4); Lymphocytes % (auto) 7.8 %; Mean Corpuscular Hemoglobin 28.9 pg (25.0-34.0); Mean Corpuscular Hgb Conc 32.5 g/dL (32.0-36.0); Mean Corpuscular Volume 89.1 fL (80.0-100.0); Mean Platelet Volume 9.3 fL (9.4-12.3); Monocytes # (auto) 0.76 K/uL (0.24-0.82); Monocytes % (auto) 5.3 %; Neutrophils # (auto) 12.29 K/uL (1.4-6.5); Neutrophils % (auto) 86.1 %; Platelet Count 270 K/uL (130-400); RDW Coefficient of Variation 13.9 % (11.5-14.5); RDW Standard Deviation 45.2 fL (36.4-46.3); Red Blood Count 3.84 M/uL (3.93-5.22); White Blood Count 14.28 K/ul (4.8-10.8)
[2021-12-23 09:08] LABS: BUN Creatinine Ratio 21.9 (10-20); Calcium 8.9 mg/dl (8.5-10.1); Creatinine Clr Calc Pharmacy 39.7 ml/min; Est GFR (African American) 43.3 ml/min; Est GFR (Non-African American) 37.4 ml/min; Magnesium 1.7 mg/dl (1.7-2.4)
[2021-12-23] MEDS: AMIODARONE 200 MG TAB PO SCH (09:53)
--- NOTE | 2021-12-23 09:59 | Orthopedic Progress Note ---
Date of Service December 23, 2021 Assessment & Plan (1) Lumbar disc herniation with radiculopathy: Plan: At this time she appears very comfortable and has responded nicely to surgery. She is safe to go home from an orthopedic standpoint. Admission and Anticipated Discharge Date Admission Date: December 20, 2021 Subjective Back pain controlled right leg symptoms markedly improved Physical Exam Physical Exam: On exam patient is in a chair at the bedside. Patient comfortable. Is marked improvement of her pain. Results & Data ([facility]) Vital Signs (Past 12 Hours) Vital Signs Temp Pulse Resp BP Pulse Ox O2 Del Method 12/23/21 09:52 75 118/76 12/23/21 08:20 36.4 C L 55 L 16 148/83 H 100 Room Air 12/23/21 08:15 58 L 122/69 12/22/21 23:00 36.9 C 64 18 128/69 97 Room Air 12/22/21 23:00 36.9 C 64 18 128/69 97 Room Air
--- NOTE | 2021-12-23 11:44 | Hospitalist Progress Note ---
Date of Service December 23, 2021 Assessment & Plan (1) Lumbar radicular pain: Plan: Now s/p R L2-[address] Styles on 12/22/21 PT/OT eval Pain control - scheduled apap, gabapentin, hydrocodone Lidocaine patch incentive spirometer use q1h wa D/c planning - cm consult to assist (2) UTI (urinary tract infection): Plan: - UA suggests UTI, culture pending - Started on Rocephin 12/22, 3 doses will suffice for uncomplicated (3) Hypertension: Plan: Takes HCTZ and Lisinopril at home - Lisinopril held for surgery, can resume 8 AM (4) DJD (degenerative joint disease): (5) Diabetes mellitus, type 2: Plan: Previously on metformin, patient no longer on any home antilipemics with last A1c of 5.1% We will follow BSG's, update A1c, if persistently hyperglycemic above 140 add SSI Diabetic diet, glucose checks AC/at bedtime (6) CKD (chronic kidney disease), stage III: Plan: - Chronic, stable (7) Paroxysmal atrial fibrillation: Plan: - Xarelto held post injection - In sinus, well contolled on Amio no recent afib Plan Patient is anxious to be discharged and asked if she could be discharged today. Will defer back to Dr. Styles as she is only on POD#1 and I suspect he would want her to wait until tomorrow. Therapy evals pending. Will d/w Dr. Styles and Dr. Benita Lam. Admission and Anticipated Discharge Date Admission Date: December 20, 2021 Subjective Patient seen on daily rounds this morning. She is resting comfortably in bed. Reports that back pain and right leg pain have greatly improved. Denies numbness/tingling. Denies cp or dyspnea. No gu symptoms or headache. Review of Systems Review of Systems: All systems reviewed and are unremarkable except as noted in HPI and below. Denies fever, chills, fatigue, headache, nasal congestion, sore throat, cough, chest pain, shortness of breath, palpitations, orthopnea, PND, abdominal pain, n/v/d, constipation, dysuria, hematuria, frequency, joint pain or swelling, easy bruising or bleeding, skin lesions or rashes. Physical Exam Physical Exam: GENERAL: 76 yo Well-developed, well-nourished elderly WF. NAD. LUNGS: Clear to auscultation bilaterally. No W/R/R. CARDIOVASCULAR: Regular rate and rhythm. ABDOMEN: Soft, non-tender and non-distended. BS normoactive x 4 quad. EXTREMITIES: No edema. Non-tender. Peripheral pulses +2/4. NEUROLOGIC: A&O x3. Nonfocal PSYCHIATRIC: Cooperative. Appropriate mood and affect. SKIN: Warm, dry, intact. No rashes or lesions. Results & Data Results & Data ([facility]) Vital Signs (Past 12 Hours) Vital Signs Temp Pulse Resp BP Pulse Ox O2 Del Method 12/23/21 11:24 36.8 C 70 16 124/82 98 Room Air 12/23/21 09:52 75 118/76 12/23/21 08:20 36.4 C L 55 L 16 148/83 H 100 Room Air 12/23/21 08:15 58 L 122/69 Laboratory Results 12/23/21 08:09 12/23/21 08:09 PG Care Time/CCT Total # of Minutes Spent Total Time Spent with Patient: Total time spent is greater than 50% in coordination of care (as documented) at patient's floor/unit and/or counseling patient: Coding Level of Care Code 01410 Subseq Hosp Care Lvl 2 Diagnoses Lumbar radicular pain M54.16 UTI (urinary tract infection) N39.0 Hypertension I10 Hypertension type: unspecified DJD (degenerative joint disease) M19.90 Diabetes mellitus, type 2 E11.22; N18.31 Diabetes mellitus long term care administrator insulin use: without senior living use Diabetes mellitus complication status: with kidney complications Diabetes mellitus complication detail: with chronic kidney disease Chronic kidney disease stage: stage 3 (moderate) Chronic kidney disease stage 3 subtype: stage 3a (GFR 45-59) CKD (chronic kidney disease), stage III N18.31 Chronic kidney disease stage 3 subtype: stage 3a (GFR 45-59) Paroxysmal atrial fibrillation I48.0 (1) Hypertension Hypertension type: unspecified Qualified Code(s): I10 - Essential (primary) hypertension (2) Diabetes mellitus, type 2 Diabetes mellitus senior living insulin use: without long term care administrator use Diabetes mellitus complication status: with kidney complications Diabetes mellitus complication detail: with chronic kidney disease Chronic kidney disease stage: stage 3 (moderate) Chronic kidney disease stage 3 subtype: stage 3a (GFR 45-59) Qualified Code(s): E11.22 - Type 2 diabetes mellitus with diabetic chronic kidney disease; N18.31 - Chronic kidney disease, stage 3a (3) CKD (chronic kidney disease), stage III Chronic kidney disease stage 3 subtype: stage 3a (GFR 45-59) Qualified Code(s): N18.31 - Chronic kidney disease, stage 3a
[2021-12-23] MEDS: cefTRIAXone SODIUM 2,000 MG in DEXTROSE 5% 50 ML IV SCH (13:15)
--- NOTE | 2021-12-23 14:39 | Electrocardiogram Report ---
Test Reason : Blood Pressure : / mmHG Vent. Rate : 067 BPM Atrial Rate : 067 BPM P-R Int : 144 ms QRS Dur : 072 ms QT Int : 440 ms P-R-T Axes : 062 -18 039 degrees QTc Int : 464 ms Normal sinus rhythm Normal ECG When compared with ECG of 17-AUG-2021 19:00, ST no longer depressed in Anterior leads Nonspecific T wave abnormality no longer evident in Anterior leads Confirmed by Victor M Conrad ([id number]) on 12/23/2021 2:39:00 PM Referred By: REFERRED SELF Confirmed By:Victor M Conrad
--- NOTE | 2021-12-23 16:34 | Discharge Summary ---
Date of Service December 23, 2021 Admission HPI Per Admitting Provider Cecilia is a 76-year-old female with a history of CKD 3, DM 2, PMR, paroxysmal A. fib with Eliquis on hold, lumbar radiculopathy who presented with worsening pain. She had had improvement in her pain following pain injections with pain management, but has had pain rating across her right hip and thigh with numbness and tingling which is acutely worsened from its baseline for approximately 1 day. Patient did have a fall about 10 days ago and had small skin tears on her arm, but did not hit her head. Patient did have an epidural steroid injection 12/09/2021 with subsequent improvement and was doing well, and feels her gabapentin was also helping up until yesterday at which time the relief wore off and her symptoms returned. She is unable to ambulate due to her pain. Recent admit in November for radiculopathy Had had epidural steroid injection as noted Yesterday (1 day [employer]) worsened, unable to get up from chair. Rates pain as 10/10. IMproved slightly with morphine 4mg and feels pain is still very severe but tolerable after ER reassessed. At bedside patient reports her pain has diminished to 1-2/10 after morphine and she is okay at rest, but any movement whatsoever because of severe spasming pain which is unbearable to her has seen Stephani in the past and was avoiding surgery, was hoping steroid injection would defer the need for this. No saddle anesthesia. No bowel incontinence. No urinary retention. No fever/chills/sweats/nausea/vomiting. Denies lightheadedness, dizziness, syncope, presyncope, chest pain, chest pressure. MRI 12/04/21:1. Right paracentral disc extrusion at L2-L3 with inferior subligamentous migration which results in severe narrowing of the right lateral recess. In addition, severe central canal stenosis at this level due to the disc extrusion, ligamentous hypertrophy and facet arthrosis.2. Postoperative findings consistent with right L3-L4 hemilaminectomy.3. Severe multilevel facet arthrosis. Multilevel neural foraminal stenosis, as above.4. No change in ant erolisthesis of L5 on S1 due to bilateral L5 pars defects. Medical History: Reviewed Medications: Reviewed. Last took this morning. Is no longer on antilipemics. Is still on prednisone 10 mg daily for a period Surgical History: Reviewed Allergies: Reviewed Social History: No tobacco or alcohol use Code Status: DNR/DNI Principal Diagnosis 1. Lumbar radiculopathy 2. UTI Discharge Exam GENERAL: 76 yo Well-developed, well-nourished elderly WF. NAD. LUNGS: Clear to auscultation bilaterally. No W/R/R. CARDIOVASCULAR: Regular rate and rhythm. ABDOMEN: Soft, non-tender and non-distended. BS normoactive x 4 quad. EXTREMITIES: No edema. Non-tender. Peripheral pulses +2/4. NEUROLOGIC: A&O x3. Nonfocal PSYCHIATRIC: Cooperative. Appropriate mood and affect. SKIN: Warm, dry, intact. No rashes or lesions. Discharge Data Allergies Allergy/AdvReac Type Severity Reaction Status Date / Time Iodinated Contrast Media Allergy Intermediate Foot rash, Verified 12/22/21 11:30 swelling Sulfa (Sulfonamide Allergy Intermediate Rash, Verified 12/22/21 11:30 Antibiotics) itching sulfamethoxazole Allergy Intermediate Rash, Verified 12/22/21 11:30 itching Consultations 12/19/21 16:39 ED Decision to Admit Stat 12/19/21 23:05 Consult Orthopedic Surgery Routine Consult Pain Management Routine Procedures Performed Operation Date: 12/22/21 08:20 Actual Procedures p Right L2-L3 Lumbar Laminectomy(Right) - Lazarus Styles DO Ordered Studies Spine X-Ray 12/22/21 12:30 INTRAOPERATIVE RADIOGRAPHS CLINICAL HISTORY: L2-L3 laminectomy. Fluoroscopy time: 10 seconds. FINDINGS: A single spot fluoroscopic view of the lumbar spine is presented. A surgical probe projects posterior to a lumbar vertebral body, likely L3. IMPRESSION: Intraoperative image from lumbar spinal surgery as above. Electronically signed by: Chas Medellin M.D. 12/22/2021 2:40 PM Hospital Course (1) Lumbar radicular pain: Now s/p R L2-[address] Styles on 12/22/21 PT/OT eval - cleared from a PT standpoint to return home (declines rehab) Pain control - scheduled apap, gabapentin, hydrocodone Lidocaine patch incentive spirometer use q1h wa Discussed pt's desire to be discharged with Dr. Styles, he was fine with that, thus will dc home today. Home health to f/u with patient upon her return home - Dr. Styles's office will contact her to scheduled her two week routine post op follow up (2) UTI (urinary tract infection): - UA suggests UTI, culture pending - Started on Rocephin 12/22, 2 doses received in the hospital, will send rx for Cefdinir 300mg BID (will finish up tomorrow at home 12/24) (3) Hypertension: Takes HCTZ and Lisinopril at home - Lisinopril held for surgery, can resume 12/24 AM (4) DJD (degenerative joint disease): (5) Diabetes mellitus, type 2: Previously on metformin, patient no longer on any home antilipemics with last A1c of 5.1% We will follow BSG's, update A1c, if persistently hyperglycemic above 140 add SSI Diabetic diet, glucose checks AC/at bedtime (6) CKD (chronic kidney disease), stage III: - Chronic, stable (7) Paroxysmal atrial fibrillation: - Xarelto held post injection - In sinus, well contolled on Amio no recent afib Plan Patient can resume her Xarelto from medical standpoint, not on her med reconciliation but new rx provided. Would resume starting 12/24. Pt active with home health who will follow up with her tomorrow. Dr. Styles's office will reach out to schedule 2 week post op follow up appointment. She should f/u with her pcp within 1 week of dc. Plan d/w Dr. Benita Lam who has also seen and evaluated this patient and agrees with plan. Total Time Total Time Spent Total Time Spent (In Minutes): >30 minutes Discharge Plan Discharge Items Patient Disposition: Home - Home Health Services Reason For Visit: INTRACTIBLE BACK PAIN, HX KEL Discharge Diagnosis: back pain Activity: As commented below Activity Comment: as tolerated Non-emergency contact: Primary Care Provider and Surgeon Call non-emergency contact if: you have any medication questions and your symptoms worsen Follow-up/Referrals: Dennis Alvarez MD [Primary Care Provider] - 01/05/22 11:00 am Lazarus Styles DO [Surgeon] - (Office will reach out to you when appointment is available.) Diet: Regular Addtl Attending Provider Instructions: ACTIVITY RECOMMENDATIONS: SELF CARE INSTRUCTIONS AFTER A LAMINECTOMY 1. No prolonged sitting (less than 30 minutes for the first 3 weeks after surgery). 2. No bending, lifting more than 5 pounds, or twisting (roll like a log when turning in bed). 3. You may shower 3 days after surgery if no drainage from wound. Thoroughly dry wound. Do not soak in the tub. 4. Please walk as much as you can for exercise. Gradually increase the distance that you walk as your endurance increases. 5. You may drive in 7-10 days if you are comfortable and no longer requiring pain medications. SPECIAL CARE INSTRUCTIONS: VERY IMPORTANT TO READ AND REVIEW A. Your surgical incision has been closed with a cosmetic suture under the skin that will dissolve in about 6 weeks. In 14 days, you can use a pair of clean scissors and cut the suture that is left outside of the skin at the ends of your incision. B. Complications are uncommon, but please contact us if you have any signs or symptoms of: 1. wound infection (fever higher than 102.5 degrees F, redness, separation of wound, drainage, or increasing pain from the incision) 2. blood clots in legs (pain, swelling, redness and warmth in legs) 3. urinary tract infection (fever higher than 102.5 degrees, burning upon urination or increased frequency of urination) 4. nerve problems (inability to walk on your toes or heels, numbness, loss of bowel or bladder control) 5. any other symptoms that concern you. C. Please call the office at if you have any concerns or questions about your operation or recovery. MANAGING PAIN AFTER SPINAL SURGERY 1. Narcotic medication is intended for short-term use and will be provided for surgical pain. Surgical pain usually lasts for a period of 4-6 weeks. Narcotic medication includes Percocet, Vicodin, Darvocet, Tylenol #3 or Lortab. 2. Longer-term pain is more appropriately treated with non-narcotic medication such as Tylenol ES. 3. Muscle spasm is not appropriately treated with narcotics. Muscle relaxers such as Soma, Flexeril or Skelaxin can be used along with Tylenol ES. 4. Remember that we all live with some "aches and pains". This is not unusual or uncommon after an injury or as we get older. 5. We will provide appropriate medication within the normal guidelines of their prescribed use. We will also be very cautious and aware of potential abuse and extended duration of patients' medication needs. 6. Please allow 2-3 days to process refills. Prescriptions will not be mailed but must be picked up at the office. FOLLOW UP VISIT: Keep your scheduled follow-up appointment. Any questions, please call the office at . Please note that you are being discharged home on an increased dose of Prednisone due to the stress of your body after surgery. Please start your Prednisone taper tomorrow (12/24/21) morning and follow the directions for tapering the steroid until you resume your normal dose of 10mg daily. Take the steroid in the morning with food. Please call the [employer] number with any questions. Finish course of antibiotic for urinary tract infection. Prescription sent to your pharmacy for Cefdinir, 1 tablet tomorrow morning and then tomorrow evening and that is it. Pending Studies at Discharge: No Stand-Alone Forms: [facility], Smoking Cessation Medications and DC Order Prescriptions: New prednisone 10 mg tablet 10 mg PO DAILY Qty: 42 0RF Rx Instructions: 6 tab daily x 2days, 5 tabs daily x2 days, 4 tabs po daily x2 days, 3 tabs daily x2 days, 2 tabs po daily x2 days, 1 tab daily x2 days cefdinir 300 mg capsule 300 mg PO BID Qty: 2 0RF Continued gabapentin 300 mg capsule 300 mg PO TID Qty: 90 5RF hydrocodone-acetaminophen 5-325 mg tablet 1 tab PO Q8H PRN (Reason: pain) Qty: 30 0RF folic acid 1 mg tablet 1 mg PO DAILY Qty: 90 3RF famotidine 40 mg tablet 40 mg PO BID Qty: 180 3RF lisinopril 10 mg tablet 10 mg PO DAILY Qty: 30 2RF hydrochlorothiazide 25 mg tablet 25 mg PO DAILY lidocaine 5 % adhesive patch,medicated 1 patch topical DAILY PRN (Reason: Pain) Rx Instructions: leave on most painful area for up to 12 hrs ondansetron HCl 4 mg tablet 4 mg PO Q8H PRN (Reason: nausea and vomiting) Qty: 30 0RF amiodarone 200 mg tablet 100 mg PO DAILY calcium carbonate-vitamin D3 [Calcium 600 + D(3)] 600 mg(1,500mg) -400 unit Tablet 1 tab PO QAM potassium gluconate 595 mg (99 mg) Tablet 99 mg PO QAM prednisone 5 mg tablet 10 mg PO DAILY Rx Instructions: will be 10 mg until Dec, then will be reduced to 7.5mg daily acetaminophen [Tylenol Extra Strength] 500 mg tablet 500 mg PO TID No Action Xarelto 15 mg tablet 15 mg PO DAILY Rx Instructions: must administer with evening meal Discharge Orders: Discharge Order (Routine); Ordered 12/23/21 Ordered By: Radha Rivera/Other Patient Handouts: Laminectomy Laminotomy Recovery Admission Data Admit Date/Time: 12/20/21 16:28 Attending Provider: Bg Lam Admit Provider: Dennis Shetty Primary Care Provider: Dennis Alvarez Other Providers: Dennis Shetty ; Lazarus Styles ; Meena Hays Other Interventions: Discharge Summary Assessment (RN) Last Done: 12/23/21 16:40 Supervising Physician Co-Signing Physician Notes I supervised Radha Julian PA-C on the care of this patient. I interviewed and examined the patient independently of her. The plan is as written in her note except for any following changes/exceptions: None Doing well after surgery. Will follow up with Dr. Styles as outpatient. Coding Level of Care Code D/C DAY MANAGEMENT >30 MINS Diagnoses Lumbar radicular pain M54.16 UTI (urinary tract infection) N39.0 Hypertension I10 Hypertension type: unspecified DJD (degenerative joint disease) M19.90 Diabetes mellitus, type 2 E11.22; N18.31 Chronic kidney disease stage: stage 3 (moderate) Chronic kidney disease stage 3 subtype: stage 3a (GFR 45-59) Diabetes mellitus complication detail: with chronic kidney disease Diabetes mellitus complication status: with kidney complications Diabetes mellitus custodial insulin use: without custodial use CKD (chronic kidney disease), stage III N18.31 Chronic kidney disease stage 3 subtype: stage 3a (GFR 45-59) Paroxysmal atrial fibrillation I48.0
== END 2021-12-23 18:10 | disposition home health service (06) | DRG 519 ==
LOC: 3N 13:56 → ED 13:56 → SUATTDRO 18:08 → 3N 22:27 → SUATTDRO 12-20 16:28